=== PATIENT | male | born 1955 | race Caucasian/White ===

== ENCOUNTER 2018-10-30 01:42 | Outpatient (CLI) | payer BC, SELFPAY ==
[2018-10-30 08:54] LABS: HCT 43.1 % (40.0-50.0); HGB 14.4 g/dL (13.5-17.5); Mean Corp. HGB Concentration 33.4 g/dL (32.0-36.0); Mean Corpuscular Hemoglobin 29.8 pg (27.0-33.0); Mean Platelet Volume 8.3 fL (8.0-11.0); Platelet Count 349 x1000/uL (130-400); RBC 4.84 m/cumm (4.50-6.00); RBC Distribution Width 12.4 % (11.8-14.1); White Blood Cell Count 6.03 k/cumm (4.4-10.8)
[2018-10-30 09:57] LABS: ALT 29 U/L (12-78); AST 29 U/L (15-37); Albumin 3.7 g/dL (3.4-5.0); Alkaline Phosphatase 108 U/L (46-116); Anion Gap 8.9 mmol/L (3-11); BUN 29 mg/dL (7-18); Bilirubin, Total 0.7 mg/dL (0.2-1.0); CO2 28.1 mmol/L (21.0-32.0); CREATININE 1.14 mg/dL (0.70-1.30); Calcium 9.7 mg/dL (8.5-10.1); Chloride 101 mmol/L (98-107); Cholesterol 209 mg/dL (50-200); Glucose 89 mg/dL (70-100); HDL Cholesterol 50 mg/dL (40-60); LDL CHOLESTEROL 142 mg/dL (<100); Potassium 5.2 mmol/L (3.5-5.1); Sodium 138 mmol/L (136-145); Total Protein 7.2 g/dL (6.4-8.2); Triglyceride 69 mg/dL (30-150)
== END 2018-10-30 02:02 ==
PROVIDERS: PCP Family Medicine; Visit Provider Family Medicine
DX: Z00.00 Encounter for general adult medical examination without abnormal findings (principal)
CPT/HCPCS: 36415; 80053; 80061; 83721; 85027

== ENCOUNTER 2020-02-04 04:32 | Outpatient (CLI) | payer MEDICARE, BC, SELFPAY ==
[2020-02-04 07:31] LABS: HCT 43.8 % (40.0-50.0); HGB 14.6 g/dL (13.5-17.5); Mean Corp. HGB Concentration 33.3 g/dL (32.0-36.0); Mean Corpuscular Hemoglobin 29.9 pg (27.0-33.0); Mean Corpuscular Volume 89.6 fL (80-95); Mean Platelet Volume 8.4 fL (8.0-11.0); Platelet Count 308 x1000/uL (130-400); RBC 4.89 m/cumm (4.50-6.00); RBC Distribution Width 12.6 % (11.8-14.1); White Blood Cell Count 5.28 k/cumm (4.4-10.8)
[2020-02-04 08:17] LABS: ALT 44 U/L (16-63); AST 34 U/L (15-37); Albumin 4.1 g/dL (3.4-5.0); Alkaline Phosphatase 84 U/L (46-116); Anion Gap 7.1 mmol/L (3-11); BUN 26 mg/dL (7-18); Bilirubin, Total 0.6 mg/dL (0.2-1.0); CO2 27.9 mmol/L (21.0-32.0); Calcium 9.8 mg/dL (8.5-10.1); Calculated LDL 143 mg/dL (<100); Chloride 103 mmol/L (98-107); Cholesterol 217 mg/dL (<200); Glucose 96 mg/dL (74-106); HDL Cholesterol 60 mg/dL (40-60); Sodium 138 mmol/L (136-145); Total Protein 6.9 g/dL (6.4-8.2); Triglyceride 71 mg/dL (<150)
[2020-02-05 09:25] LABS: PSA, Screening 1.3 ng/mL (0.0-4.5)
== END 2020-02-04 04:52 ==
PROVIDERS: PCP Family Medicine; Visit Provider Family Medicine
DX: I48.0 Paroxysmal atrial fibrillation (principal); E78.89 Other lipoprotein metabolism disorders; Z12.5 Encounter for screening for malignant neoplasm of prostate; N40.0 Benign prostatic hyperplasia without lower urinary tract symptoms
CPT/HCPCS: 36415; 80053; 80061; 84153; 85027

== ENCOUNTER 2021-02-03 03:49 | Outpatient (CLI) | payer MEDICARE, BC, SELFPAY ==
[2021-02-03 08:21] LABS: ALT 30 U/L (16-63); AST 27 U/L (15-37); Albumin 3.8 g/dL (3.4-5.0); Alkaline Phosphatase 88 U/L (46-116); Anion Gap 6.5 mmol/L (3-11); BUN 24 mg/dL (7-18); Bilirubin, Total 0.6 mg/dL (0.2-1.0); CO2 27.5 mmol/L (21.0-32.0); CREATININE 1.1 mg/dL (0.70-1.30); Calcium 9.4 mg/dL (8.5-10.1); Chloride 104 mmol/L (98-107); Glucose 92 mg/dL (74-106); Potassium 5.3 mmol/L (3.5-5.1); Sodium 138 mmol/L (136-145); Total Protein 6.7 g/dL (6.4-8.2)
[2021-02-03 20:23] LABS: Calculated LDL 124 mg/dL (<100); Cholesterol 187 mg/dL (<200); HDL Cholesterol 50 mg/dL (40-60); Triglyceride 68 mg/dL (<150)
[2021-02-03 22:08] LABS: PSA, Screening 1.5 ng/mL (0.0-4.5)
== END 2021-02-03 03:50 | disposition home or self-care (01) ==
LOC: LBO 03:49
PROVIDERS: PCP Nurse Practitioner Family; Visit Provider Nurse Practitioner Family
DX: I10 Essential (primary) hypertension (principal); N40.0 Benign prostatic hyperplasia without lower urinary tract symptoms; Z12.5 Encounter for screening for malignant neoplasm of prostate
CPT/HCPCS: 36415; 80053; 80061; 84153

== ENCOUNTER 2022-02-07 01:30 | Outpatient (CLI) | payer MEDICARE, BC, SELFPAY ==
--- OUTSIDE RECORDS SUMMARY | 2022-02-07 01:32 | XMS_ITS | Encounter Summary ---
:1955 Author Organization [facility] Address [address] [place] [address] Care Team Providers Name Role Phone Uriah Davis MD Primary Care Provider Reason for Visit Reason Comments Other battery depletion Encounter Details Date Type Department Care Team Description 02/24/2020 External Contact [facility] - Shelton Smith Presence of cardiac device (Primary Dx); [facility] [place] Cardiology MD Lb PAF (paroxysmal atrial fibrillation) ( C-CMS) Clinic [address] [facility] [address] [facility] [address] [place] [address] [place] [phone] Social History Tobacco Use Types Packs/Day Years Used Date Never Smoker Smokeless Tobacco: Never Used Alcohol Use Standard Drinks/Week Comments Yes 0 (1 standard drink = 0.6 oz pure alcoho l) rare Alcohol Habits Answer Date Recorded How often do you have a drink containing alcohol? Not asked How many drinks containing alcohol do you have on a typical Not asked day when you are drinking? How often do you have six or more drinks on one occasion? No t asked Comment: rare 11/10/2010 Sex Assigned at Date Recorded Not on file documented as of this encounter Functional Status Functional Status Response Date of Assessment Because of a physical, mental, or emotional condition, Yes 08/31/2016 does this person have difficulty doing errands alone such as visiting a doctor's office or shopping? Cognitive Status Response Date of Assessment Because of a physical, mental, or emotional condition, Yes 08/31/2016 does this person have serious difficulty concentrating, remembering, or making decisions? documented as of this encounter Progress Notes Shelton Smith MD - 02/24/2020 4491 EDT Operative Note ?? Patient: Braulio ROONEY ?? Date of : 1955 ?? Date of Service: 02/24/2020 ?? Preoperative diagnosis: Implanted property assessment monitor battery depletion ?? Postoperative diagnosis: Implanted property assessment monitor battery depletion ?? Procedure: Implanted property assessment monitor (Reveal Linq) explant ?? Cco: Shelton Smith MD ?? Anesthesia: Local ?? Preprocedure antibiotics: None ?? Fluoroscopy: None ?? Estimated blood loss less than 10 mL ?? Specimens: none Drains: none Complications: none ?? Indication for procedure: Device battery depletion ?? Procedure in detail: The patient was brought to the procedure room in a fasting state and informed consent was obtained. A timeout was performed and the patient was prepped and draped in the usual sterile manner. The left parasternal region was locally anesthetized and an incision was made through theprevious incision scar. A very dense scar capsule was found. Using blunt and sharp dissection, the device (Medtronic Reveal Linq) was accessed without problems and explanted. Manual pressure was held for 5 minutes for hemostasis. The incision was then closed with a single horizontal suture using 4-0 Biosyn suture material. The skin was then closed with Dermabond skin glue. ?? Summary: Successful explantation of a Reveal Linq implanted property assessment monitor. ?? CPT 89309. ?? Shelton Smith MD documented in this encounter Plan of Treatment Upcoming Encounters Date Type Specialty Care Team Description 09/13/2022 Office Visit Cardiology Shelton Smith MD [address] [place] [address] [address] [place] [address] (Wo rk) documented as of this encounter Visit Diagnoses Diagnosis Presence of cardiac device - Primary PAF (paroxysmal atrial fibrillation) (HC C-CMS) (HCC) Atrial fibrillation documented in this encounter Care Teams Solar Sales Representative Relationship Specialty Start Date End Date Uriah Davis MD PCP - General 01/17/19 07/12/21 documented as of this encounter
--- OUTSIDE RECORDS SUMMARY | 2022-02-07 01:32 | XMS_ITS | Encounter Summary ---
:1955 Author Organization [facility] Address [address] [place] [address] Care Team Providers Name Role Phone Uriah Davis MD Primary Care Provider Reason for Visit Reason Comments Atrial Fibrillation Follow-up Encounter Details Date Type Department Care Team Description 11/26/2019 Telemedicine [facility] - Shelton Smith PAF (paroxysmal atrial fibrillation) ([facility]) (Primary Dx); [facility] [place] MD Lb Essential (primary) hypertension; Clinic [address] Status post catheter ablation of atrial fibrillation; [address] [facility] [address] Ectopic atrial tachycardia ([facility]) [place] [address] [place] [phone] Social History Tobacco Use Types Packs/Day [...] encounter Progress Notes Shelton Smith MD - 11/26/2019 0915 EDT [facility] [place] Visit Verbal consent: The concept of ???Telemedicine?? has been described to the patient. Patient has been informed of the anticipated benefits and possible risks. Patient understands the information provided regarding telemedicine, has had the opportunity to ask questions about this information, and all questions have been answered to patient???s satisfaction. Patient consents for the use of telemedicine in his/her medical care and authorizes the transmission of any relevant medical information to providers and their staff involved in patient???s medical or mental health care. Verbal consent obtained by myself or auxiliary staff: yes. Subjective: Chief Complaint(s): Atrial Fibrillation and Follow-up HPI: 64-year-old man with history of paroxysmal atrial fibrillation since 2006, status post 4 AF ablationprocedures [id number], intolerance to multiple antiarrhythmic medications, 2 syncopal episodes attributed to vasovagal spells, hypercoagulable state of unclear etiology and aortic root dilatation. S/p Reveal LINQ phototypesetting equipment monitor implant. Since having his device implanted in 08/2016 he has had 1 prolonged (>12h) episode of AF in 2019, noted as dizziness and palpitations that he attributed to dehydration. He declined adding an anticoagulant to his medication regimen at that time, but started on Xarelto in 09/2019. Continues with medicinal marijuana to treat his headaches. He is doing well and back at physical activities including marathon training, tennis and mountain biking. Tolerating physical activity well. He occasionally feels skipped beat, like a hesitation in his heart beat. A very rare occasion, he feels that his basline HR is 20 bpm higher than usual, making him feel up against a wall all day. He reports good and stable exercise capacity. He goes running at least 5-6 miles every day, uses his bike timekeeping supervisor. . Denies CP, SOB, syncope, orthopnea, PND, edema, fevers, chills, digestive troubles, bleeding, arthralgia, myalgia. He has been intolerant of a variety of antiarrhythmic medications including flecainide, amiodarone, dofetilide, diltiazem and atenolol. Data review: Card[employer]Net event monitor 06/17/2015-07/29/2015: Preliminary and incomplete results: Baseline sinus rhythm, one episode with lightheaded, heart racing, the the, other symptom with sinus tachycardia at 133/min. 12 episodes of lightheaded/dizzy/SOB with sinus rhythm, 72 -105/min +/- single PVC or PAC, on e couplet. 2 asymptomatic episodes of pSVT 9 & 18 beats, 186 & 164/min. CT angiogram chest 05/2015, [facility]: Dilated aortic root at the level of the sinuses of Valsalva, measuring 4.9 cm on sagittal reconstruction images. The ascending, transverse and descending thoracic aortahave normal appearance. Small bilateral lung nodules, scarring medial segment middle lobe. Small defect posterior left diaphragmatic with fatty herniation into the left lower chest. Tobacco: Tobacco Assessment (STRUCTURED) Patient Tobacco Use: Never used tobacco .. Current Outpatient Medications Medication Sig Dispense Refill ??? ascorbic acid (VITAMIN C) 500 mg tablet Take 500 mg by mouth daily. ??? DILTiazem (CARDIZEM) 30 mg tablet Take 30 mg by mouth 2 times daily. ??? fish oil-omega-3 fatty acids 340-1,000 mg capsule Take 1 Cap by mouth daily. ??? lisinopriL (PRINIVIL) 10 mg tablet Take 1 Tab by mouth 3 times daily. 2 tabs in the morning, 1 tab at night. ??? Multivitamins with Minerals Tab Take 1 Tab by mouth daily. ??? rivaroxaban (XARELTO) 20 mg tablet tablet Take 1 Tab by mouth daily with dinner. 30 Tab 11 No current facility-administered medications for this visit. Past Medical History Paroxysmal atrial fibrillation since 2006 4 AF ablation procedures with pulmonary vein isolation 08/2008, 10/2010, 05/2011, 10/2012, Dr. Hendricks,[facility] Initiation of antiarrhythmic therapy with dofetilide 08/2010, medication discontinued due to side effects Negative tilt table test at [facility] 06/2013, Reproduction of lightheadedness with mental fogginess, weakness and near syncope near the end of the tilt study, on Isuprel 5 mcg/minute IV, with a blood pressure juan manuel of 107/66 at that time and a heart rate of 112. 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 Alcohol: rare. Drug use: none. Exercise: daily, cardio training. Living situation: lives with spouse/partner. Marital/Partner Status: . Domestic violence screen Do youfeel safe at home? Yes, Date: 08/30/2016. Learning Barriers Assessed On: 07/28/2015, Does the patient have barriers to learning? No. 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 Allergies flecainide: hallucinations amiodarone Tikosyn atenolol fresh fruit: anaphylaxis: Allergy I have reviewed current problem list and current medications. ROS: A 10-system ROS was performed, pertinent items as mentioned in HPI, otherwise negative. Objective: Examination: Home Vitals: There were no vitals taken for this visit. Pertinent exam findings: speaking in full sentences, no audible wheeze and mood and affect appropriate Labs: Lab Results Component Value Date CHOL 177 08/27/2010 CHOL 197 03/23/2009 HDL 58 08/27/2010 HDL 54 03/23/2009 LDLBASE 102 08/27/2010 LDLBASE 103 03/23/2009 TRIG 83 08/27/2010 TRIG 201 (H) 03/23/2009 CHOLHDL 3.1 08/27/2010 CHOLHDL 3.6 03/23/2009 BUN Date Value Ref Range Status 10/08/2012 15 10 - 26 mg/dl Final Creatinine Date Value Ref Range Status 07/08/2019 1.07 0.66 - 1.25 mg/dL Final 10/08/2012 0.81 0.66 - 1.25 mg/dl Final Potassium Date Value Ref Range Status 10/08/2012 4.8 3.5 - 5.0 mEq/L Final Magnesium Date Value Ref Range Status 08/26/2010 2.3 1.7 - 2.8 mg/dl Final Lab Results Component Value Date HGBA1C 5.4 08/26/2010 Assessment & Plan: 1. PAF (paroxysmal atrial fibrillation) (HCC-CMS) 2. Essential (primary) hypertension 3. Status post catheter ablation of atrial fibrillation 4. Ectopic atrial tachycardia (HCC-CMS) 64-year-old man with history of paroxysmal atrial fibrillation since 2006, status post 4 AF ablationprocedures [id number], intolerance to multiple antiarrhythmic medications, 2 syncopal episodes of unclear etiology and aortic root dilatation. Had dizzy spells, palpitations and shortness of In 2017, int erfering with his daily work. Referral to an autonomous nervous communications systems engineer did not yield new diagnoses. Had Reveal LINQ phototypesetting equipment monitor implant. Currnetly doing very well with good suppression of arrhyhmia on low-dose diltiazem. Excellent exercise capacity. Answered Multiple questions regarding exercise workout and heart rhythm. Continue current meds.Total [id number] time: 35 minutes, >50% spent counseling on above issues. Treatment 1. Essential hypertension Continue Cardizem tablet, 30 mg, 1 tab(s), orally, two times a day Continue Lisinopril 30mg/d 2. Paroxysmal atrial fibrillation Continue Xarelto 20mg/d Patient initiated phone contact with the office: yes. Patient is an established patient (parent, guardian) yes. E/M provided within previous 7 days for same medical assessment: no Anticipate E/M service within 24hrs or next available urgent appointment no. This visit was conducted by telephone. I spent a total of 35 minutes in discussion with the patient as described in the progress note. Shelton Smith MD arty Crum - 11/26/2019 0915 EDT appts sched with pt 03/03/20 with Maryellen and 06/09/[address] Smith documented in this encounter Plan of Treatment Upcoming Encounters Date Type Specialty Care Team Description 09/13/2022 Office Visit Cardiology Shelton Smith MD [address] [place] [address] [address] [place] [address] (Wo rk) documented as of this encounter Visit Diagnoses Diagnosis PAF (paroxysmal atrial fibrillation) (HC C-CMS) ([facility]) - Primary Atrial fibrillation Essential (primary) hypertension Unspecified essential hypertension Status post catheter ablation of atrial fibrillation Ectopic atrial tachycardia ([facility]) (HC C) Other specified cardiac dysrhythmias documented in this encounter Discontinued Medications Medication Sig Discontinue Reason Start Date End Date lisinopril (PRINIVIL, Take 5 mg by mouth Order modification 11/26/2019 ZESTRIL) 5 mg tablet 3 times daily. 2 tabs in the morning, 1 tab at night. documented as of this encounter Historical Medications This list may reflect changes made after this encounter. Medication Sig Dispensed Refills Start Date End Date lisinopriL (PRINIVIL) 10 Take 1 Tab by mouth 0 01/29/2020 mg tablet 3 times daily. 2 tabs in the morning, 1 tab at night. added in this encounter Care Teams Acquisition Analyst Relationship Specialty Start Date End Date Uriah Davis MD PCP - General 01/17/19 07/12/21 documented as of this encounter
--- OUTSIDE RECORDS SUMMARY | 2022-02-07 01:32 | XMS_ITS | Encounter Summary ---
:1955 Author Organization [facility] Address [address] [place] [address] Care Team Providers Name Role Phone Uriah Davis MD Primary Care Provider Reason for Visit Reason Onset Date Comments Appointment Related 03/03/2020 Encounter Details Date Type Department Care Team Description 03/03/2020 Telephone [facility] - [facility] Keaton De La Torre RN Appointment Related Cardiology Clinic [address] [place] [address] Social History Tobacco Use Types Packs/Day Years [...] making decisions? documented as of this encounter Miscellaneous Notes Telephone Encounter - Sophia Quintanilla RN - 03/05/2020 1159 EDT Labs given to Maryellen for review. Per Maryellen, no changes in medications needed at this time. Advised to keep F/U appt with . Instructed to call the office with further questions or concerns. Telephone Encounter - Maryellen Pantoja APRN - 03/04/2020 1352 EDT I think he should keep his initial visit with Dr Smith in May and they can decide on a futurefollow up plan at that time, mostly because Dr Smith's availability is lacking in the coming months. I checked scanned documents and did not see any bloodwork results. I am happy to review, or he could discuss with the ordering provider. Thanks. elephone Encounter - Keaton De La Torre RN - 03/03/2020 0919 EDT Pt was in office 03/02/20 for a wound check s/p reveal explant. He and his had a few questions for Maryellen Pantoja: 1. Pt has a scheduled appt with in May. Is that still necessary or could it be cancelled or postponed? 2. Pt had recent labs done at [facility] and they were hoping to have Maryellen review those. They dropped them off at front services agent to be scanned into pts chart. documented in this encounter Plan of Treatment Upcoming Encounters Date Type Specialty Care Team Description 09/13/2022 Office Visit Cardiology Shelton Smith MD [address] [place] [address] [address] [place], [place] [phone] (Wo rk) documented as of this encounter Visit Diagnoses Not on filedocumented in this encounter Care Teams Research Development Manager Relationship Specialty Start Date End Date Uriah Davis MD PCP - General 01/17/19 07/12/21 documented as of this encounter
--- OUTSIDE RECORDS SUMMARY | 2022-02-07 01:32 | XMS_ITS | Encounter Summary ---
:1955 Author Organization [facility] Address [address] [place] [address] Care Team Providers Name Role Phone Uriah Davis MD Primary Care Provider Reason for Referral Radiology Services (Routine/Next Available) - Authorization Not Required Specialty Diagnoses / Procedures Referred By Contact Refer red To Contact Diagnoses Ascending aorta dilatation ([facility]) (FORMERLY [facility]) Marilee Madrid, [facility] Procedures CT ANGIO CHEST [address] [place] [phone] Referral ID Status Reason Start Expiration Visits Visits Date Date Requested Authorized [id number] Authorization Not 1 Required 1 Reason for Visit Reason Onset Date Comments Patient Reminder 05/14/2021 Encounter Details Date Type Department Care Team Description 05/14/2021 Telephone [facility] Willi Mortensen MD Patient Reminder Cardiothoracic Surgery - [address] [place] [address] [place], [place] [phone] (Wo rk) Social History Tobacco Use Types Packs/Day Years [...] this encounter Miscellaneous Notes Telephone Encounter - Olamide Saenz - 05/18/2021 1455 EDT Patient scheduled for CTA chest on 07/13/2021 at 9:00 am, check-in at 8:45 am. Patient will then seeDrDavid South at 10:00 am on the same day. Appointment confirmation letter, including lab order, mailed to patient's home address on file. elephone Encounter - Olamide Saenz - 05/18/2021 0914 EDT Order now in Epic. Coordination note placed in Radiology WQ. Awaiting appointment. Telephone Encounter - Olamide Saenz - 05/14/2021 1116 EDT Previous patient of Dr. Bliss. Patient is on reminder list for the month of July, for CTA chest and Office Visit with CT Surgeon. Awaiting order. Patient's spouse requesting that CTA chest and OV be done in the month of June because they already met their deductible. documented in this encounter Plan of Treatment Upcoming Encounters Date Type Specialty Care Team Description 09/13/2022 Office Visit Cardiology Shelton Smith MD [address] [place] [address] [address] [place] [address] (Wo rk) documented as of this encounter Procedures Procedure Name Priority Date/Time Associated Diagnosis Comme nts CT ANGIO CHEST Routine 07/13/2021 9:00 EST Ascending aorta Res ults for this dilatation ([facility]) procedu re are in the ([facility]) results section . CREATININE Routine 07/12/2021 9:25 EST Ascending aorta Resul ts for this dilatation (HCC-CMS) procedu re are in the ([facility]) results section . documented in this encounter Results CT ANGIO CHEST (07/13/2021 9:00 EST) Anatomical Region Laterality Modality Chest Computed Tomography Specimen Impressions [facility] - 07/13/2021 9:57 EST 1. ??Stable ascending aortic aneurysm 4.8 cm at the sinuses of Valsalva: 4.4 cm in the mid ascending aorta. 2. ??Mild atherosclerotic narrowing of t he proximal left subclavian artery. 3. ??Minimal middle lobe scarring. 4. ??Stable small low-attenuation lesion s both lobes of thyroid. 5. ??Small left renal cyst. Narrative [facility] - 07/13/2021 9:[address] ANGIO CHEST ??07/13/2021 9:00 AM Clinical History/Comments: known ascending aortic aneurysm, interva l assessment for change Technique: A contrast-enhanced retrospectively ECG- gated CT acquisition was performed on a multidetector row scanner beginning at the apices inferiorly to the lung bases. ??Intravenous contrast was administered as 80-100 cc of 350-370 mg% nonionic contr ast at an injection rate of 4 cc/second, with scan acquisition timed by the use of bolus-tracking software targeted to the proximal descending aorta. ??Scans were reconstructed in a soft tissue algorith m at 75% ??of the cardiac cycle with 2.5-3.0 mm thick scans reconstructed at overlapping 2.0 mm intervals and retrospectively reconstructed with 0.9 mm thickness at 0.45 mm intervals, all in a soft tiss ue algorithm for three-dimensional reconstruction and interpretation on a dedicated PACS workstation. ??Coronal, sagittal and 3-D reformations of the aorta were performed. Exam description: ??CTA of the chest Comparison: Chest CT July 23, 2019.. Findings: Opacification of the aorta is good. No d issection or other aortic abnormality identified. The ascending aortic dilatation stable from the studies of June 2019. Maximum dimension: Aortic root at sinuses of Valsalva: 4.8 cm Sinotubular junction: ??4.4 cm Ascending aorta: ??4.1 cm Aortic Arch: ??2.8 cm Descending thoracic aorta: ??2.6 cm Lower neck: Stable small low-density les ions both lobes of thyroid. Chest wall soft tissues: No abnormalitie s. Mediastinum and rubia: No enlarged medias tinal or hilar lymph nodes. ??The esophagus appears normal. Heart and mediastinal vasculature: ??The re is mild atherosclerotic narrowing of the proximal left subclavian artery with both hard and soft plaque. Large airways: ??No abnormalities. Lungs: ??There is minimal scarring withi n the medial segment of the middle lobe. Pleura: No abnormalities. Upper abdomen (limited to upper abdomen, not optimized for abdominal imaging): There is a small cyst in the midpole of the left kidney posteriorly. Bones: ??No significant abnormalities. Procedure Note Chito Guevara MD - 07/13/2021 CT ANGIO CHEST 07/13/2021 9:00 AM Clinical History/Comments: known ascending aortic aneurysm, interva l assessment for change Technique: A contrast-enhanced retrospectively ECG- gated CT acquisition was performed on a multidetector row scanner beginning at the apices inferiorly to the lung bases. Intravenous contrast was administered as 80-100 cc of 350-370 mg% nonionic contrast at an injection ra te of 4 cc/second, with scan acquisition timed by the use of bolus-tracking software targeted to the proximal descending aorta. Scans were reconstructed in a soft tissue algorithm at 75% of the cardiac cycle wi th 2.5-3.0 mm thick scans reconstructed at overlapping 2.0 mm intervals and retrospectively reconstructed with 0.9 mm thickness at 0.45 mm intervals, all in a soft tissue algorithm for three-dimensional r econstruction and interpretation on a dedicated PACS workstation. Coronal, sagittal and 3-D reformations of the aorta were performed. Exam description: CTA of the chest Comparison: Chest CT July 23, 2019.. Findings: Opacification of the aorta is good. No d issection or other aortic abnormality identified. The ascending aortic dilatation stable from the studies of June 2019. Maximum dimension: Aortic root at sinuses of Valsalva: 4.8 cm Sinotubular junction: 4.4 cm Ascending aorta: 4.1 cm Aortic Arch: 2.8 cm Descending thoracic aorta: 2.6 cm Lower neck: Stable small low-density les ions both lobes of thyroid. Chest wall soft tissues: No abnormalitie s. Mediastinum and rubia: No enlarged medias tinal or hilar lymph nodes. The esophagus appears normal. Heart and mediastinal vasculature: There is mild atherosclerotic narrowing of the proximal left subclavian artery with both hard and soft plaque. Large airways: No abnormalities. Lungs: There is minimal scarring within the medial segment of the middle lobe. Pleura: No abnormalities. Upper abdomen (limited to upper abdomen, not optimized for abdominal imaging): There is a small cyst in the midpole of the left kidney posteriorly. Bones: No significant abnormalities. IMPRESSION 1. Stable ascending aortic aneurysm 4.8 cm at the sinuses of Valsalva: 4.4 cm in the mid ascending aorta. 2. Mild atherosclerotic narrowing of the proximal left subclavian artery. 3. Minimal middle lobe scarring. 4. Stable small low-attenuation lesions both lobes of thyroid. 5. Small left renal cyst. Performing Organization Address City/State/ZIP Code Phon e Number [facility] CREATININE (07/12/2021 9:25 EST) Pathologist Sig nature Creatinine 1.04 0.66 - 1.25 mg/dL [facility] eGFR 74 >60 mL/min/1.73m2 [facility] Specimen Blood - Venous blood (substance) Performing Organization Address City/State/ZIP Code Phon e Number [facility] [address] [place] [address] documented in this encounter Visit Diagnoses Diagnosis Ascending aorta dilatation (HCC-CMS) (HC C) - Primary Thoracic aortic ectasia documented in this encounter Care Teams Centerless Grinding Machine Adjuster Relationship Specialty Start Date End Date Uriah Davis MD PCP - General 01/17/19 07/12/21 documented as of this encounter
--- OUTSIDE RECORDS SUMMARY | 2022-02-07 01:32 | XMS_ITS | Clinical Summary ---
:1955 Author Organization [facility] Address [address] [place] [address] Care Team Providers Name Role Phone Shelton Smith MD Unavailable [phone] Tho Genao Primary Care Provider Allergies Active Allergy Reactions Severity Noted Date Comments Amiodarone Other (See Comments) 10/13/2009 Ineffec tive for A-Fib and hallucinati ons Atenolol Other (See Comments) 10/13/2009 Halluci nations and restlessness Dofetilide 07/01/2013 Other reaction( s): Unknown, Unknow n Other reaction( s): Unknown, Unknow n Flecainide Other (See Comments) 10/13/2009 Halluci nations Food Extracts 01/03/2022 Other reaction (s): AOF Cephalexin Nausea Only 10/13/2009 Other - See Comments Swelling of tongue High 10/13/2009 F resh fruit- - swelling tongue adhesive- - michele h Medications Medication Sig Dispensed Refills Start Date End Date Status Multivitamins with Take 1 Tab by 0 Active Minerals Tab mouth daily. ascorbic acid (VITAMIN Take 500 mg by 0 Active C) 500 mg tablet mouth daily. fish oil-omega-3 fatty Take 1 Cap by 0 Active acids 340-1,000 mg mouth daily. capsule UNABLE TO FIND Medical me 0 Acti ve rivaroxaban (XARELTO) Take 1 Tablet by 90 Tablet 3 01/03/2022 Active 20 mg tablet tablet mouth daily with dinner. lisinopriL (PRINIVIL) Take 2 Tablets 270 Tablet 3 01/03/2022 Active 10 mg tablet by mouth every morning AND 1 Tablet every evening. dilTIAZem (CARDIZEM) 30 Take 1 Tablet by 180 Tablet 3 01/04/20 22 Active mg tablet mouth 2 times daily. Active Problems Patient Care Coordination Note Formatting of this note might be differe nt from the original. [facility] JO[facility] - P erm[place] to speak to Angela Garcia (), Deya Mcleod (daughter), and Britany Singh (daughter) Problem Noted Date Ectopic atrial tachycardia (HCC-CMS) 11/26/2019 Basal cell carcinoma of skin 09/20/2019 Overview: Overview: Deactivated Dx replaced via utility Encounter for loop recorder check 09/20/2019 Status post catheter ablation of atrial fibrillation 0 09/20/2019 Thoracic aortic aneurysm without rupture ([facility]) Cerebral cavernoma 10/11/2016 Essential (primary) hypertension 09/23/2016 PAF (paroxysmal atrial fibrillation) ([facility]) 013 Resolved Problems Problem Noted Date Resolved Date A-fib ([facility]) 05/24/2011 09/15/2011 A-fib ([facility]) 08/06/2010 02/09/2011 Encounters Date Type Specialty Care Team Description 01/03/2022 Office Visit Cardiology Shelton Smith, PAF (paroxysmal atrial fibrillation) ([facility]) ([facility]) (Primary Dx); Ectopic atrial tachycardia ([facility]) ([facility]); Status post cat heter ablation of atrial fibrillation; Essential (prim elena) hypertension; Thoracic aortic aneurysm without rupture ([facility]) ([facility]) from Last 3 Months Surgical History Surgery Date Site/Laterality Comments TONSILLECTOMY childhood NASAL SEPTUM SURGERY 2006 ABLATION OF DYSRHYTHMIC FOCUS Medical History Medical History Date Comments AF (atrial fibrillation) (HCC-CMS) ([facility]) had ablation 2 yrs ago Cancer (HCC-CMS) ([facility]) skin cancer on fa ce and back A-fib (HCC-CMS) ([facility]) 10/09/2012 Family History Medical History Relation Name Comments Heart Disease Brother Heart Disease Father Cancer Maternal Grandfather High Cholesterol Mother Heart Disease Paternal Grandmother Relation Name Status Comments Brother Father Maternal Grandfather Mother Paternal Grandmother Social History Tobacco Use Types Packs/Day Years [...] Assigned at Date Recorded Not on file Last Filed Vital Signs Vital Sign Reading Time Taken Comments Blood Pressure 128/74 01/03/2022 0834 EDT Pulse 68 01/03/2022 0834 EDT Temperature 36.3 ??C (97.3 ??F) 07/13/2021 0956 EST Respiratory Rate 18 07/13/2021 0956 EST Oxygen Saturation 100% 01/03/2022 0834 EDT Inhaled Oxygen Concentration - - Weight 68.3 kg (150 lb 8 oz) 01/03/2022 0834 EDT Height 177.8 cm (5' 10) 01/03/2022 0834 EDT Body Mass Index 21.59 01/03/2022 0834 EDT Plan of Treatment Upcoming Encounters Date Type Specialty Care Team Description 09/13/2022 Office Visit Cardiology Shelton Smith MD [address] [place] [address] [address] [place], [place] [phone] (Wo rk) Health Maintenance Due Date Last Done Comments Hepatitis C Screen 1955 COVID-19 Vaccine (#1) 1958 Advance Directive Review 04/06/2014 Fall Risk Screening 2018 Insurance Payer Benefit Plan / Subscriber ID Effective Dates Phone Addre ss Type Group MEDICARE MEDICARE A/B [id number] 2020-Presen [id number] [place] [address] [place] [id number] 2020-Presen [address] [place] [address] [place] [id number] Braulio Garcia Personal/Family Self 1955 [address] (Home) [place] [address] GarciaBraulio antunez Personal/Family Self 1955 [address] (Home) [place] [address] Braulio Garcia Personal/Family Self 1955 [address] (Home) [place] [address] Advance Directives For more information, please contact: [phone] Documents on File Type Date Recorded Patient Product Development Ecologist Explanati on Advance Directive 04/06/2009 20:42 Advance Directive 02/25/2009 20:13 Latest Code Status on File Code Status Date Activated Date Inactivated Comments Full Code 10/09/2012 12:02 10/10/2012 13:15 Full Code 06/14/2011 15:05 06/15/2011 13:01 Full Code 11/10/2010 6:42 11/11/2010 14:06 Full Code 11/09/2010 10:07 11/09/2010 16:11 Full Code 08/26/2010 17:53 08/29/2010 14:38 Care Teams Data Architect Manager Relationship Specialty Start Date End Date Tho Genao [facility] 07/13/21 [address] [phone] Shelton Smith, Cardiovascular Disease [address] [place] [address] [place] [phone]
--- OUTSIDE RECORDS SUMMARY | 2022-02-07 01:32 | XMS_ITS | Encounter Summary ---
:1955 Author Organization [facility] Address [address] [place] [address] Care Team Providers Name Role Phone Uriah Davis MD Primary Care Provider Reason for Visit (Routine) - Order Cancelled Specialty Diagnoses / Procedures Referred By Contact Refer red To Contact Diagnoses Encounter for loop recorder check Maryellen Pantoja NP Procedures CARDIAC IMPLANT CHECK - IN CLINIC [address] [facility] [address] [place] [address] Referral ID Status Reason Start Date Expiration Date Visits V isits Requested Authorized [id number] Order 09/20/2019 12 12 Cancelled Encounter Details Date Type Department Care Team Description 06/26/2020 Ancillary Procedure [facility] - Encounter for loop [facility] Cardiology Clin ic recorder check [address] [place] [address] Social History Tobacco Use Types [...] making decisions? documented as of this encounter Plan of Treatment Upcoming Encounters Date Type Specialty Care Team Description 09/13/2022 Office Visit Cardiology Shelton Smith MD [address] [place] [phone] (Wo rk) documented as of this encounter Visit Diagnoses Diagnosis Encounter for loop recorder check Fitting and adjustment of other cardiac device documented in this encounter Orders Implantable Cardiac Device Count Last Ordered Date Fir st Ordered Date CARDIAC IMPLANT CHECK - IN CLINIC 1 06/26/2020 documented in this encounter Care Teams Bench Technician Relationship Specialty Start Date End Date Uriah Davis MD PCP - General 01/17/19 07/12/21 documented as of this encounter
--- OUTSIDE RECORDS SUMMARY | 2022-02-07 01:32 | XMS_ITS | Encounter Summary ---
:1955 Author Organization [facility] Address [address] [place] [address] Care Team Providers Name Role Phone Uriah Davis MD Primary Care Provider Encounter Details Date Type Department Care Team Description 05/17/2021 Orders Only [facility] Benja Siddiqi MD Radiology - Main Cam pus [address] [address] [place] [phone] (Wo rk) Social History Tobacco Use Types [...] Office Visit Cardiology Shelton Smith MD [address] [place] [address] [address] [place] [address] (Wo rk) documented as of this encounter Visit Diagnoses Not on filedocumented in this encounter Care Teams Process Expert Relationship Specialty Start Date End Date Uriah Davis MD PCP - General 01/17/19 07/12/21 documented as of this encounter
--- OUTSIDE RECORDS SUMMARY | 2022-02-07 01:32 | XMS_ITS | Encounter Summary ---
:1955 Author Organization [facility] Address [address] [place] [address] Care Team Providers Name Role Phone Uirah Davis MD Primary Care Provider Shelton Smith MD Unavailable [phone] Reason for Visit Reason Onset Date Comments Patient Reminder 07/12/2021 Encounter Details Date Type Department Care Team Description 07/12/2021 Telephone [facility] Nasima South MD Patient Reminder Cardiothoracic Surgery - [address] [place] [address], [address] [place], [place] [address] [place] [address] [phone] (Wo rk) Social History Tobacco Use [...] this encounter Miscellaneous Notes Telephone Encounter - Brooke Mckenzie MA - 07/12/2021 8637 EST Spoke to patients she confirmed he will be coming to appts, visitor policy as well was gone over. documented in this encounter Plan of Treatment Upcoming Encounters Date Type Specialty Care Team Description 09/13/2022 Office Visit Cardiology Shelton Smith MD [address] [place], [place] [address] [address] [place] [address] (Wo rk) documented as of this encounter Visit Diagnoses Not on filedocumented in this encounter Care Teams Science Consultant Relationship Specialty Start Date End Date Uriah Davis MD PCP - General 01/17/19 07/12/21 Shelton Smith MD Cardiovascular Disease 07/02/[address] [place], [place] [address] [address] [place] [address] documented as of this encounter
--- OUTSIDE RECORDS SUMMARY | 2022-02-07 01:32 | XMS_ITS | Encounter Summary ---
:1955 Author Organization [facility] Address [address] [place] [address] Care Team Providers Name Role Phone Uriah Davis MD Primary Care Provider Reason for Visit Reason Onset Date Comments Medication Management 09/24/2019 Encounter Details Date Type Department Care Team Description 09/24/2019 Telephone [facility] - Maryellen Pantoja Me dication Management [facility]iology Clin ic [place] [address] [place] [address] [address] [place] [phone] (Wo rk) Social History Tobacco Use Types [...] making decisions? documented as of this encounter Ordered Prescriptions Prescription Sig Dispensed Refills Start Date End Date rivaroxaban (XARELTO) 20 Take 1 Tab by mouth 30 Tab 11 12/19/2019 mg tablet tablet daily with dinner. documented in this encounter Miscellaneous Notes Telephone Encounter - Keaton De La Torre RN - 09/24/2019 1724 EST Rx sent and ASA discontinued on medication list as requested. elephone Encounter - Maryellen Pantoja APRN - 09/24/2019 1612 EST Spoke with . Discussed risks/benefits. Also discussed that sparing use of NSAIDs is ok. DC ASA. Can we send a Rx for 20 mg of Xarelto po daily to [facility] in [place]. #30, refills 11 elephone Encounter - Keaton De La Torre RN - 09/24/2019 1511 EST Spoke with patients on the phone. She is wishing to have Maryellen Pantoja APRN call them to discuss going onto an OAC agent as they have decided to move forward with this. They are leaning towardsXarelto, primarily for the once a day dosing, but would like to discuss benefits/drawbacks and medication management that would happen when he is put on OAC with Julian. Forwarding for review. elephone Encounter - Annette Jacobo - 09/24/2019 1444 EST Braulio called, he wants to know if its ok to continue taking Aleve and Asprin if he decides to start Xarelto. documented in this encounter Plan of Treatment Upcoming Encounters Date Type Specialty Care Team Description 09/13/2022 Office Visit Cardiology Shelton Smith MD [address] [place] [address] [address] [place] [address] (Wo rk) documented as of this encounter Visit Diagnoses Not on filedocumented in this encounter Discontinued Medications Medication Sig Discontinue Reason Start Date End Date aspirin 81 mg EC tablet Take 81 mg by mouth 09/24/2019 daily. documented as of this encounter Care Teams Asphalt Machine Operator Relationship Specialty Start Date End Date Uriah Davis MD PCP - General 01/17/19 07/12/21 documented as of this encounter
--- OUTSIDE RECORDS SUMMARY | 2022-02-07 01:32 | XMS_ITS | Encounter Summary ---
:1955 Author Organization [facility] Address [address] [place] [address] Care Team Providers Name Role Phone Shelton Smith MD Unavailable [phone] Tho Genao Primary Care Provider Reason for Visit Reason Onset Date Comments Patient Reminder 07/13/2021 Encounter Details Date Type Department Care Team Description 07/13/2021 Telephone [facility] Nasima South MD Patient Reminder Cardiothoracic Surgery - [address] [facility], [address] [place], [place] [address] [place] [address] [phone] (Wo rk) Social History Tobacco Use [...] this encounter Miscellaneous Notes Telephone Encounter - Nori Lo - 07/13/2021 1030 EST I have placed this patient on the Reminder List for a CTA Chest with IV Contrast and inperson followup with Dr South in June 2022. documented in this encounter Plan of Treatment Upcoming Encounters Date Type Specialty Care Team Description 09/13/2022 Office Visit Cardiology Shelton Smith MD [address] [place], [place] [address] [address] [place] [address] (Wo rk) documented as of this encounter Visit Diagnoses Not on filedocumented in this encounter Care Teams Inbound Call Center Representative Relationship Specialty Start Date End Date Tho Genao PCP - [facility] 07/13/[address] [place] [phone] Shelton Smith, Cardiovascular Disease 1 [address] [facility] [address] [place] [address] documented as of this encounter
--- OUTSIDE RECORDS SUMMARY | 2022-02-07 01:32 | XMS_ITS | Encounter Summary ---
:1955 Author Organization [facility] Address [address] [place] [address] Care Team Providers Name Role Phone Uriah Davis MD Primary Care Provider Reason for Visit Reason Onset Date Comments Medications Refill 01/29/2020 Encounter Details Date Type Department Care Team Description 01/29/2020 Refill [facility] [place]ia Quintanilla RN Medications Refill Cardiology Clinic [address] [facility] [address] [facility] [address] [place] [address] [place] [address] [phone] (Wo rk) Social History Tobacco Use Types [...] (PRINIVIL) 10 Take 1 Tab by mouth 270 Tab 3 12/29/2020 mg tablet 3 times daily. 2 tabs in the morning, 1 tab at night. DILTiazem (CARDIZEM) 30 mg Take 1 Tab by mouth 180 Tab 3 01/29/2020 12/29/2020 tablet 2 times daily. rivaroxaban (XARELTO) 20 Take 1 Tab by mouth 90 Tab 3 12/29/2020 mg tablet tablet daily with dinner. documented in this encounter Miscellaneous Notes Telephone Encounter - Sophia Quintanilla RN - 01/29/2020 1500 EDT Pharmacy request RF of patients Lisinopril,Xarelto and Diltiazem. He was seen recently for F/U with Maryellen Pantoja NP, on 01/09/20. Escript sent to [employer]. documented in this encounter Plan of Treatment Upcoming Encounters Date Type Specialty Care Team Description 09/13/2022 Office Visit Cardiology Shelton Smith MD [address] [place] [address] [phone] (Wo rk) documented as of this encounter Visit Diagnoses Not on filedocumented in this encounter Discontinued Medications Medication Sig Discontinue Reason Start Date End Date rivaroxaban (XARELTO) 20 Take 1 Tab by mouth Reorder 0 01/29/2020 mg tablet tablet daily with dinner. DILTiazem (CARDIZEM) 30 Take 30 mg by mouth Reorder 01/29/2020 mg tablet 2 times daily. lisinopriL (PRINIVIL) 10 Take 1 Tab by mouth Reorder 0 01/29/2020 mg tablet 3 times daily. 2 tabs in the morning, 1 tab at night. documented as of this encounter Care Teams Hand Deicer Element Winder Relationship Specialty Start Date End Date Uriah Davis MD PCP - General 01/17/19 07/12/21 documented as of this encounter
--- OUTSIDE RECORDS SUMMARY | 2022-02-07 01:32 | XMS_ITS | Encounter Summary ---
:1955 Author Organization [facility] Address [address] [place] [address] Care Team Providers Name Role Phone Shelton Smith MD Unavailable [phone] Tho Genao Primary Care Provider Reason for Visit Reason Comments Follow-up Hypertension Atrial Fibrillation Encounter Details Date Type Department Care Team Description 01/03/2022 Office Visit [facility] - Shelton Smith PAF (paroxysmal atrial fibrillation) ([facility]) ([facility]) (Primary Dx); [facility] [place] Lb Ectopic atrial tachycardia ([facility]) (HC C); Clinic [address] [facility] Status post catheter ablation of atrial fibrillation; [address] [facility] [address] [address] Essential (primary) hypertension; [place] [address] [place], [place] Thoracic aortic aneurysm wit hout rupture (HCC-CMS) ([facility]) [phone] Social History Tobacco Use Types Packs/Day [...] on file documented as of this encounter Last Filed Vital Signs Vital Sign Reading Time Taken Comments Blood Pressure 128/74 01/03/2022 0834 EDT Pulse 68 01/03/2022 0834 EDT Temperature - - Respiratory Rate - - Oxygen Saturation 100% 01/03/2022 0834 EDT Inhaled Oxygen Concentration - - Weight 68.3 kg (150 lb 8 oz) 01/03/2022 0834 EDT Height 177.8 cm (5' 10) 01/03/2022 0834 EDT Body Mass Index 21.59 01/03/2022 0834 EDT documented in this encounter Functional Status Functional Status Response [...] Sig Dispensed Refills Start Date End Date dilTIAZem (CARDIZEM) 30 mg Take 1 Tablet by 180 Tablet 3 tablet mouth 2 times daily. lisinopriL (PRINIVIL) 10 Take 2 Tablets by 270 Tablet 3 12/22 mg tablet mouth every morning AND 1 Tablet every evening. rivaroxaban (XARELTO) 20 Take 1 Tablet by 90 Tablet 3 01/03 mg tablet tablet mouth daily with dinner. documented in this encounter Progress Notes Shelton Smith MD - 01/03/2022 0900 EDT [facility] Visit Subjective: Chief Complaint(s): Follow-up, Hypertension, and Atrial Fibrillation HPI: 66-year-old man with history of paroxysmal atrial fibrillation since 2006, status post 4 AF ablationprocedures [id number], intolerance to multiple antiarrhythmic medications, 2 syncopal episodes attributed to vasovagal spells, hypercoagulable state of unclear etiology and aortic root dilatation. Reveal LINQ potline monitor implant from 08/2016 until 02/2020. This documented one prolonged (>12h) episode of AF in 2019, noted as dizziness and palpitations that he attributed to dehydration. He declined adding an anticoagulant to his medication regimen at that time, but started on Xarelto in 09/2019. Uses medicinal marijuana to treat his headaches. Regular physical activities include marathon training, tennis and mountain biking. Tolerating physical activity well with overall good exercise capacity. Returns to the office with his spouse for routine follow-up. Reports doing well. Very rare brief palpitations. He had a CT chest for his aortic dilatation in 06/2021, followed by a visit with Dr. South at [facility] CT surgery, who recommended yearly follow up. He denies CP, SOB, syncope, orthopnea, PND, edema, fevers, chills, digestive troubles, bleeding, arthralgia, myalgia. He has been intolerant of a variety of antiarrhythmic medications including flecainide, amiodarone, dofetilide, diltiazem and atenolol. Had two Pfizer Cortera vaccines in October 2020, had arm pain and felt tired after the second one. Current Outpatient Medications Medication Sig Dispense Refill ??? ascorbic acid (VITAMIN C) 500 mg tablet Take 500 mg by mouth daily. ??? dilTIAZem (CARDIZEM) 30 mg tablet Take 1 Tablet by mouth 2 times daily. 180 Tablet 3 ??? fish oil-omega-3 fatty acids 340-1,000 mg capsule Take 1 Cap by mouth daily. ??? lisinopriL (PRINIVIL) 10 mg tablet Take 2 Tablets by mouth every morning AND 1 Tablet every evening. 270 Tablet 3 ??? Multivitamins with Minerals Tab Take 1 Tab by mouth daily. ??? rivaroxaban (XARELTO) 20 mg tablet tablet Take 1 Tablet by mouth daily with dinner. 90 Tablet 3 ??? UNABLE TO FIND Medical me No current facility-administered medications for this visit. Past Medical History Paroxysmal atrial fibrillation since 2006 4 AF ablation procedures with pulmonary vein isolation 08/2008, 10/2010, 05/2011, 10/2012, Dr. Hendricks,[facility] Initiation of antiarrhythmic therapy with dofetilide 08/2010, medication discontinued due to side effects Negative tilt table test at [facility] 06/2013, Reproduction of lightheadedness with mental fogginess, weakness and near syncope near the end of the tilt study, on Isuprel 5 mcg/minute IV, with a blood pressure juan manuel of 107/66 at that time and a heart rate of 112. 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 Reveal LINQ explant 02/2020. Family History Mother: alive, diagnosed with No [...] patient have barriers to learning? No. 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 Allergies flecainide: hallucinations amiodarone Tikosyn atenolol fresh fruit: anaphylaxis: Allergy I have reviewed current problem list and current medications. ROS: A 10-system ROS was performed, pertinent items as mentioned in HPI, otherwise negative. Objective: Examination: Home Vitals: BP 128/74 (BP Cuff Location: Right arm, BP Patient Position: Sitting, BP Cuff Sizes: Adult, regular) Pulse 68 Ht 177.8 cm (70) Wt 68.3 kg (150 lb 8 oz) SpO2 100% BMI 21.59 kg/m?? General Exam: GENERAL APPEARANCE: no acute distress, pleasant, cooperative. HEENT EYES: conjunctiva clear, sclerae anicteric, THROAT: pharynx normal. NECK: supple, no thyromegaly, no JVD, no carotid bruit. CHEST: normal shape and expansion. HEART: regular rate and rhythm, normal S1S2, no murmurs, rub or gallop. LUNGS: clear to auscultation & percussion, good air entry bilaterally. ABDOMEN: soft, NT/ND, BS present. EXTREMITIES: no clubbing, no cyanosis, no edema. PERIPHERAL PULSES: carotid, radial, femoral, PT: 2+ bilaterally. SKIN: warm & dry. NEUROLOGIC EXAM: alert & oriented x3, nonfocal, normal speech, gait normal. Labs: Lab Results Component Value Date CHOL 177 08/27/2010 CHOL 197 03/23/2009 HDL 58 08/27/2010 HDL 54 03/23/2009 LDLBASE 102 08/27/2010 LDLBASE 103 03/23/2009 TRIG 83 08/27/2010 TRIG 201 (H) 03/23/2009 CHOLHDL 3.1 08/27/2010 CHOLHDL 3.6 03/23/2009 BUN Date Value Ref Range Status 10/08/2012 15 10 - 26 mg/dl Final BUN - [facility] Date Value Ref Range Status 06/26/2020 30 (H) 10 - 26 mg/dL Final Creatinine Date Value Ref Range Status 07/12/2021 1.04 0.66 - 1.25 mg/dL Final 10/08/2012 0.81 0.66 - 1.25 mg/dl Final Potassium Date Value Ref Range Status 06/26/2020 4.8 3.5 - 5.0 mEq/L Final 10/08/2012 4.8 3.5 - 5.0 mEq/L Final Magnesium Date Value Ref Range Status 08/26/2010 2.3 1.7 - 2.8 mg/dl Final CALCIUM - [facility] Date Value Ref Range Status 06/26/2020 9.8 8.5 - 10.5 mg/dL Final Lab Results Component Value Date HGBA1C 5.4 08/26/2010 Data review: [employer] event monitor 06/17/2015-07/29/2015: Preliminary [...] fatty herniation into the left lower chest. Echo 07/2020: Moderately dilated aortic root and ascending aorta. Tricupid AV, trace AI. Mild LVH, normal EF. Normal RV. Normal LA and RA size. Normal MV morphology, mild MR. TV prolapse, moderate TR. Normal PASP. Holter 08/2020: 1. Baseline Sinus Rhythm with BBB: The average heart rate was 75 BPM. The minimum heart rate was 60 BPM, occurring at 2:37:36 AM D2. The maximum heart rate was 152 BPM, occurring at 5:42:23 AM D1. 2. Rare PVC, 0.4%: Ventricular ectopic activity consisted of 850 beats, of which, 791 were in single PVCs, 59 were single VEs. 3. Occ. PAC, 1.4%, few atrial runs: Supraventricular ectopic activity consisted of 2962 beats, of which, 61 were in 11 runs, 48 were in atrial couplets, 149 were late beats, 2019 were single PACs, 8 were in bigeminy, 677 were in trigeminy. ??The longest supraventricular run occurred at 5:30:33 PM D1 consisting of 19 beats, with maximum heart rate of 141 BPM. The fastest supraventricular run occurred at 5:18:00 AM D1, consisting of 3 beats, with maximum heart rate of 169 BPM. 4. No significant pauses: ??The longest R-R interval was 1.5 seconds occurring at 7:05:56 PM D2. 5. Symptoms: LIGHTHEADED x1 with SR, 79/min; DIZZY x1 with SR, 82/min; CHEST PAIN x1 with SR, 85/min & PAC; HEADACHE x1 with SR, 79/min; CHEST TIGHTNESS x1 with SR, 75/min. Labs NV 02/04/2021: K 5.3, Cr 1.1, LFTs normal, Total chol 187, LDL 124, HDL 50. CT angio chest, [facility] 06/2021: 1. Stable ascending aortic aneurysm 4.8 cm at the sinuses of Valsalva: 4.4 cm in the mid ascending aorta. 2. Mild atherosclerotic narrowing of the proximal left subclavian artery. 3. Minimal middle lobe scarring. 4. Stable small low-attenuation lesions both lobes of thyroid. 5. Small left renal cyst. ?? Assessment & Plan: 1. PAF (paroxysmal atrial fibrillation) (HCC-CMS) ([facility]) 2. Ectopic atrial tachycardia (HCC-CMS) ([facility]) 3. Status post catheter ablation of atrial fibrillation 4. Essential (primary) hypertension 5. Thoracic aortic aneurysm without rupture (HCC-CMS) ([facility]) 66-year-old man with history of paroxysmal atrial fibrillation since 2006, status post 4 AF ablationprocedures [id number], intolerance to multiple antiarrhythmic medications, 2 syncopal episodes of unclear etiology and aortic root dilatation. Had dizzy spells, palpitations and shortness of In 2017, int erfering with his daily work. Referral to an autonomous nervous systems administration analyst did not yield new diagnoses. Had Reveal LINQ potline monitor implant until 02/2020. Continues doing well with reasonablesuppression of arrhyhmia on low-dose diltiazem. Holter was reassuring without recurrence of AF, onlyfew atrial runs. Follow up CTA chest 06/2021 at [facility] regarding his dilated ascending aorta showed stable findings. [place] Dr. South in CT surgery, who recommended yearly f/u. BP well controlled. Lipids reasonable. Discussed follow up frequency for TAA. Continue current meds for now. I spent a total of 30 minutes on the date of this encounter meeting with the patient and reviewing documentation (including chest imaging)/coordinating care as described in the above note. No procedures were performed at the time of the visit. Shelton Smith MD documented in this encounter Plan of Treatment Upcoming Encounters Date Type Specialty Care Team Description 09/13/2022 Office Visit Cardiology Shelton Smith MD [address] [place] [address] [address] [place] [phone] (Wo rk) documented as of this encounter Visit Diagnoses Diagnosis PAF (paroxysmal atrial fibrillation) (HC C-CMS) (HCC) - Primary Atrial fibrillation Ectopic atrial tachycardia (HCC-CMS) (HC C) Other specified cardiac dysrhythmias Status post catheter ablation of atrial fibrillation Essential (primary) hypertension Unspecified essential hypertension Thoracic aortic aneurysm without rupture (HCC-CMS) (HCC) Thoracic aneurysm without mention of rup ture documented in this encounter Discontinued Medications Medication Sig Discontinue Reason Start Date End Date rivaroxaban (XARELTO) 20 Take 1 Tab by mouth 1 01/03/2022 mg tablet tablet daily with dinner. dilTIAZem (CARDIZEM) 30 Take 1 Tab by mouth Reorder 12/29/2020 01/03/2022 mg tablet 2 times daily. lisinopriL (PRINIVIL) 10 Take 1 Tab by mouth Reorder 1 01/03/2022 mg tablet 3 times daily. 2 tabs in the morning, 1 tab at night. rivaroxaban (XARELTO) 20 Take 1 Tab by mouth 1 01/03/2022 mg tablet tablet daily with dinner. documented as of this encounter Historical Medications This list may reflect changes made after this encounter. Medication Sig Dispensed Refills Start Date End Date UNABLE TO FIND Medical me 0 added in this encounter Care Teams Billing Services Manager Relationship Specialty Start Date End Date Tho Genao [facility] 07/13/[address] [place] [phone] Shelton Smith, Cardiovascular Disease [address] [place] [address] [address] [phone] documented as of this encounter
--- OUTSIDE RECORDS SUMMARY | 2022-02-07 01:32 | XMS_ITS | Encounter Summary ---
:1955 Author Organization [facility] Address [address] [place] [address] Care Team Providers Name Role Phone Shelton Smith MD Unavailable [phone] Tho Genao Primary Care Provider Reason for Visit Reason Comments Follow-up CTA Scan today Encounter Details Date Type Department Care Team Description 07/13/2021 Office Visit [facility] Nasima South MD Ascending aorta Cardiothoracic Surgery [address] [facility] ([facility]) (HCC) [address] [facility], Level 5 (Primary Dx) [place], [place] [address] [place] [address] [phone] (Wo rk) Social History Tobacco Use [...] Sign Reading Time Taken Comments Blood Pressure 122/70 07/13/2021 0956 EST Pulse 102 07/13/2021 0956 EST regular Temperature 36.3 ??C (97.3 ??F) 07/13/2021 0956 EST Respiratory Rate 18 07/13/2021 0956 EST Oxygen Saturation 99% 07/13/2021 0956 EST Inhaled Oxygen Concentration - - Weight 68 kg (150 lb) 07/13/2021 0956 EST Height 177.8 cm (5' 10) 07/13/2021 0956 EST Body Mass Index 21.52 07/13/2021 0956 EST documented in this encounter Functional Status Functional [...] making decisions? documented as of this encounter Patient Instructions Patient InstructionsNori Lo - 07/13/2021 10:[address] South he would like to see you during the month of June in the year of 2021 with an imaging study and office visit for follow-up on the same day. The Surgeon's Clinical Billboard Erector Helper will contact you to set up your appointments during the month preceding the appointments. If you do not hear from the Clinical Billboard Erector Helper during that month, please michael your calendar and contact our office at to schedule the appointments. AVOID IF POSSIBLE, the Class of Fluoroquinolone Antibiotics as they may be associated with an increased risk of aortic aneurysm or dissection. Discuss this with your Primary Care Doctor. There are several different antibiotics under this Class. You should have your blood pressure checked daily, before you take your medications, and report these blood pressures to your Primary Care Doctor. We suggest that you have a blood pressure monitor at home and periodically (three times per year) bring your monitor into your Primary Care Doctor to have it checked for accuracy. You should also follow with your Primary Care Doctor for blood pressure monitoring in his/her office as per their direction. Contact your Primary Care Doctor if your systolic blood pressure (the top number) is greater than 120 You may have a lifting, pushing, pulling restriction regarding your aneurysm. If your Surgeon has instructed you on this, the lifting, pushing, pulling restriction is nothing more than 50 pounds with no strenuous activity. This is indefinitely. Continue your regular follow-up with your Primary Care Doctor and any other Doctors that you normally follow with. Follow closely with your Doctors for health care maintenance as this is very important. Per the Surgeon, if you have chest, jaw, neck, arm, back, abdominal pain or pressure, shortness of breath, dizziness, sweating with dizziness, nausea, fainting (passing out), near fainting, leg or arm weakness, numbness of your legs or arms, inability to speak or change in speech, unequal smile (face is uneven) call 911 immediately. Feel free to contact our office at if you have any questions. Thank you. documented in this encounter Progress Notes Chester South MD - 07/13/2021 1000 EST Cardiothoracic Surgery Consult Chief Complaint: Ascending aortic aneurysm Referring Physician: Dr. Smith History of Present Illness: I had the pleasure of seeing Braulio Garcia in evaluation for his ascending aortic aneurysm. As you know he is a pleasant 65-year-old male with past medical history significant for atrial fibrillation status post ablations, hypercoagulable state, on Xarelto, that has been followed for an ascending aortic root aneurysm. He has been followed by Dr. Peña and subsequently by Dr. Bliss, with his most recent CT scan from 07/23/2019 demonstrating his aortic root to measure 4.8 cm in dimension. Prior to that, as reported by Dr. Peña, he had a cardiac MRI in 2009 which demonstrated his aortic root to measure 4.[address] scan in 2015 demonstrated his aortic root to measure 4.[address] imaging in 2016 and 2018 demonstrated his aortic root to be largely unchanged. The patient now presents for his 2-year follow-up. In the interim he did have a transthoracic echocardiogram on 07/29/2020, which demonstrated his aortic valve to be trileaflet, with trace aortic insufficiency. There was mild mitral sufficiency and moderate tricuspid insufficiency. He otherwise denies having any new changes to his health in the interim. He continues to have his underlying atrial fibrillation. He denies having any chest pains or back pains, or any shortness of breath. He is fairly active, but has limited his strenuous activity. He states that his systolic blood pressures typically 120s. He did have a CT angiogram today which demonstrated his aortic root to be largely stable, with radiology report of 4.8 cm. On my interpretation, there does appear to be some variance, with measurementsranging from 4.8 to 5.0 cm and unclear whether there is potential slight increase in growth. His ascending aorta measured 4.1 cm. Past Medical History: Past Medical History: Diagnosis Date ??? A-fib (HCC-CMS) (HCC) 10/09/2012 ??? AF (atrial fibrillation) (HCC-CMS) (HCC) had ablation 2 yrs ago ??? Cancer (HCC-CMS) (HCC) skin cancer on face and back Past Surgical History: Past Surgical History: Procedure Laterality Date ??? ABLATION OF DYSRHYTHMIC FOCUS ??? NASAL SEPTUM SURGERY 2006 ??? TONSILLECTOMY childhood Family History: Family History Problem Relation Age of Onset ??? High Cholesterol Mother ??? Heart Disease Father ??? Heart Disease Brother ??? Cancer Maternal Grandfather ??? Heart Disease Paternal Grandmother Social History: Social History Socioeconomic History ??? Marital status: Spouse name: Not on file ??? Number of children: Not on file ??? Years of education: Not on file ??? Highest education level: Not on file Occupational History ??? Not on file Tobacco Use ??? Smoking status: Never Smoker ??? Smokeless tobacco: Never Used Substance and Sexual Activity ??? Alcohol use: Yes Comment: rare ??? Drug use: No ??? Sexual activity: Not on file Other Topics Concern ??? Not on file Social History Narrative ??? Not on file Social Determinants of Health Financial Resource Strain: ??? Difficulty of Paying Living Expenses: Not on file Food Insecurity: ??? Worried About Running Out of Food in the Last Year: Not on file ??? Ran Out of Food in the Last Year: Not on file Transportation Needs: ??? Lack of Transportation (Medical): Not on file ??? Lack of Transportation (Non-Medical): Not on file Physical Activity: ??? Days of Exercise per Week: Not on file ??? Minutes of Exercise per Session: Not on file Stress: ??? Feeling of Stress : Not on file Social Connections: ??? Frequency of Communication with Friends and Family: Not on file ??? Frequency of Social Gatherings with Friends and Family: Not on file ??? Attends Judaism Services: Not on file ??? Active Member of Clubs or Organizations: Not on file ??? Attends Club or Organization Meetings: Not on file ??? Marital Status: Not on file Medications: Current Outpatient Medications Medication ??? ascorbic acid (VITAMIN C) 500 mg tablet ??? dilTIAZem (CARDIZEM) 30 mg tablet ??? fish oil-omega-3 fatty acids 340-1,000 mg capsule ??? lisinopriL (PRINIVIL) 10 mg tablet ??? Multivitamins with Minerals Tab ??? rivaroxaban (XARELTO) 20 mg tablet tablet ??? rivaroxaban (XARELTO) 20 mg tablet tablet No current facility-administered medications for this visit. Allergies: Other - see comments, Amiodarone, Atenolol, Dofetilide, Flecainide, and Keflex [cephalexin] ROS: Aside from what is listed in the History of Present Illness, a complete Review of Systems has been performed and is otherwise negative. OBJECTIVE: VS: Blood pressure 122/70, pulse 102, temperature 36.3 ??C (97.3 ??F), temperature source Temporal, resp. rate 18, height 177.8 cm (70), weight 68 kg (150 lb), SpO2 99 %. Gen: NAD, WDWN elderly male of thin stature HEENT: EOMI, MMM, neck soft Chest: No obvious chest wall deformities. CV: RRR Pulm: non-labored respirations, clear to auscultation bilaterally Abd/GI: Soft, NT Skin/Ext: Soft, warm, well perfused, minimal edema Neuro: Neurologically grossly intact Psych: Alert and oriented, cooperative with the physical exam and interview Labs: Lab Results Component Value Date/Time WBC 7.43 10/08/2012 08:20 HGB 14.3 06/26/2020 09:27 HCT 44.4 10/08/2012 08:20 PLT 298 06/26/2020 09:27 NA 138 06/26/2020 09:27 K 4.8 06/26/2020 09:27 CL 102 06/26/2020 09:27 CO2 28 06/26/2020 09:27 BUN 30 (H) 06/26/2020 09:27 CREATININE 1.04 07/12/2021 09:25 Chest x-ray/CT Chest: 07/23/21 Comparison: 07/07/2017. ?? Findings: Opacification of the aorta is good. No dissection or other acute aortic abnormality identified. The dilated ascending aorta is stable compared to the prior examination (measurements below are re-measured in a similar location on the prior study - these may differ slightly from the prior measurements). ?? Maximum dimension: Aortic root at sinuses of Valsalva: 4.8 cm Sinotubular junction: 4.4 cm Ascending aorta: 4.1 cm Aortic Arch: 3.3 cm Descending thoracic aorta: 3.1 cm ?? Lower neck: Stable small thyroid nodules. ?? Chest wall soft tissues: Loop recorder in the left chest wall. ?? Mediastinum and rubia: No enlarged mediastinal or hilar lymph nodes. ?? Heart and mediastinal vasculature: No abnormalities. The coronary arteries are well opacified and are normal (diminutive left circumflex coronary artery, with a large dominant right coronary artery). ?? Large airways: No abnormalities. ?? Lungs: Scattered small foci of linear scarring or atelectasis. No significant abnormalities. ?? Pleura: No abnormalities. ?? Upper abdomen (limited to upper abdomen, not optimized for abdominal imaging): No abnormalities. ?? Bones: No significant abnormalities. ?? IMPRESSION 1. Stable dilated ascending aorta. 2. Loop recorder in the left chest wall. 3. Scattered small foci of linear scarring or atelectasis in the lungs. ?? ASSESSMENT/PLAN: 65-year-old male with past medical history significant for atrial fibrillation status post ablations, hypercoagulable state, on Xarelto, that has been followed for an ascending aortic root aneurysm. His ascending aortic aneurysm has been largely from 2016, measuring up to 5.0 cm. The patient does havea trileaflet aortic valve, with effacement of his sinotubular junction, no family history of thoracic aneurysmal disease, and without any symptoms attributed to his aneurysm. While the stability of hisaneurysm is encouraging, given its size as well as potentially slight increase in size over the past2 years, we will obtain the next CT scan in 1 year. Typically our cutoff for prophylactic ascending aortic aneurysm repair is 5.5 cm or greater in patients with a trileaflet aortic valve and no known family history of thoracic aneurysmal disease. In patients with a bicuspid aortic valve or family history of thoracic aneurysmal disease, prophylactic ascending aneurysm repair is 5.0 cm or greater in appropriate risk surgical candidates. I instructed the patient to continue strict blood pressure control and monitoring, and to maintain diligence with their antihypertensive regimen. In addition, the patient was informed to refrain from any heavy lifting, straining, or any excessive strenuous activity. I also counseled the patient on thesigns and symptoms of acute aortic pathology. We look forward to seeing Mr. Garcia in 1 year, and we will certainly keep you up-to-date with the status of his progress. Thank you for giving me the opportunity to help participate in the care this patient, should you have any further questions please do not hesitate to give me a call. Chester South MD Cardiothoracic Surgery [phone] (office) 07/13/2021 12:52 documented in this encounter Plan of Treatment Upcoming Encounters Date Type Specialty Care Team Description 09/13/2022 Office Visit Cardiology Shelton Smith MD [address] [place] [address] [address] [place] [address] (Wo rk) documented as of this encounter Visit Diagnoses Diagnosis Ascending aorta dilatation (HCC-CMS) (HC C) - Primary Thoracic aortic ectasia documented in this encounter Care Teams Fire Patrol Relationship Specialty Start Date End Date Tho Genao [facility] 07/13/[address] [place] [phone] Shelton Smith, Cardiovascular Disease [address] [place], [place] [address] [address] [place] [address] documented as of this encounter
--- OUTSIDE RECORDS SUMMARY | 2022-02-07 01:32 | XMS_ITS | Encounter Summary ---
:1955 Author Organization [facility] Address [address] [place] [address] Care Team Providers Name Role Phone Uriah Davis MD Primary Care Provider Reason for Visit Reason Onset Date Comments Medication Questions 07/01/2020 Encounter Details Date Type Department Care Team Description 07/01/2020 Telephone [facility] - Shelton Smith ication Questions [facility] Cardiology Clin ic MD Lb [address] [facility] [address] [place] [address] [address] [place] [phone] (Wo rk) Social History Tobacco Use Types [...] - Keaton De La Torre RN - 07/06/2020 1322 EST is addressing directly. elephone Encounter - Keaton De La Torre RN - 07/03/2020 1039 EST Spoke with . He is going to check labs and will address later today. Pt was inquiring about lowering his Xarelto dosing and the only reason to do so would be based on kidney function, per . elephone Encounter - Amos Sher - 07/03/2020 0839 EST PT called this morning for update on previous note. He said [facility] about to fill theprescription Xarelto and he didn't want to fill if he was going to be dropping down to 10mg. He willbe out running errands this morning but is okay to leave a voicemail. elephone Encounter - Sophia Quintanilla RN - 07/01/2020 1503 EST How shall I advise patient on his recent labs? elephone Encounter - Amos Sher - 07/01/2020 1355 EST Yonis Garcia called and wanted to speak to someone about his recent blood work results that Dr. Smith had ordered correlating with some of his medications. Dr. Smith had mentioned dropping the dosageon one of his medications if blood work indicated he was anemic. PT said okay to call back and talk with as he will be exercising. Best return number is [phone] signed by Amos Sher at 07/01/2020 14:01 ESTdocumented in this encounter Plan of Treatment Upcoming Encounters Date Type Specialty Care Team Description 09/13/2022 Office Visit Cardiology Shelton Smith MD [address] [place] [address] [address] [place] [address] (Wo rk) documented as of this encounter Visit Diagnoses Not on filedocumented in this encounter Care Teams Hybrid Technologist Relationship Specialty Start Date End Date Uriah Davis MD PCP - General 01/17/19 07/12/21 documented as of this encounter
--- OUTSIDE RECORDS SUMMARY | 2022-02-07 01:32 | XMS_ITS | Encounter Summary ---
:1955 Author Organization [facility] Address [address] [place] [address] Care Team Providers Name Role Phone Uriah Davis MD Primary Care Provider Shelton Smith MD Unavailable [phone] Reason for Visit Reason Comments Follow-up Atrial Fibrillation Hypertension Encounter Details Date Type Department Care Team Description 07/05/2021 Office Visit [facility] - Shelton Smith PAF (paroxysmal atrial fibrillation) (HCC-CMS) ([facility]) (Primary Dx); [facility] Cardiology MD Lb Thoracic aortic aneurysm without rupture (HCC-CMS) (HCC); Clinic [address] Status post catheter ablation of atrial fibrillation; [address] Essential (primary) hypertension; [place] [address] [place] Ectopic atrial tachycardia ( HCC-CMS) ([facility]) [phone] Social History Tobacco Use Types Packs/Day [...] Sign Reading Time Taken Comments Blood Pressure 116/72 07/05/2021 0809 EST Pulse 73 07/05/2021 0809 EST Temperature - - Respiratory Rate - - Oxygen Saturation 96% 07/05/2021 0809 EST Inhaled Oxygen Concentration - - Weight 69.3 kg (152 lb 12.8 oz) 07/05/2021 0809 EST Height 177.8 cm (5' 10) 07/05/2021 0809 EST Body Mass Index 21.92 07/05/2021 0809 EST documented in this encounter Functional Status [...] encounter Progress Notes Shelton Smith MD - 07/05/2021814 EST [facility] Cardiology Clinic Visit Subjective: Chief Complaint(s): Follow-up, Atrial Fibrillation , and Hypertension HPI: 65-year-old man with history of paroxysmal atrial fibrillation since 2006, status post 4 AF ablationprocedures [id number], intolerance to multiple antiarrhythmic medications, 2 syncopal episodes attributed to vasovagal spells, hypercoagulable state of unclear etiology and aortic root dilatation. Reveal LINQ cardiac rn implant from 08/2016 until 02/2020. This documented [...] office with his spouse for routine follow-up. Continues doing well. He has occasionalbrief palpitations, where he notes his HR staying in the 100-130/min range for a prolonged time, sometimes a full day. The last two times, an extra diltiazem did not seem to help. He is scheduled to have a f/u CT chest for his aortic dilatation. He denies CP, SOB, syncope, orthopnea, PND, edema, fevers, chills, digestive troubles, bleeding, arthralgia, myalgia. He has been intolerant of a variety of antiarrhythmic medications including flecainide, amiodarone, dofetilide, diltiazem and atenolol. Had two Pfizer Covid vaccines in October, had arm pain and felt tired after the second one. Data review: [employer] event monitor 06/17/2015-07/29/2015: Preliminary [...] fatty herniation into the left lower chest. Current Outpatient Medications Medication Sig Dispense Refill ??? ascorbic acid (VITAMIN C) 500 mg tablet Take 500 mg by mouth daily. ??? dilTIAZem (CARDIZEM) 30 mg tablet Take 1 Tab by mouth 2 times daily. 180 Tab 3 ??? fish oil-omega-3 fatty acids 340-1,000 mg capsule Take 1 Cap by mouth daily. ??? lisinopriL (PRINIVIL) 10 mg tablet Take 1 Tab by mouth 3 times daily. 2 tabs in the morning, 1 tab at night. 270 Tab 3 ??? Multivitamins with Minerals Tab Take 1 Tab by mouth daily. ??? rivaroxaban (XARELTO) 20 mg tablet tablet Take 1 Tab by mouth daily with dinner. 90 Tab 3 ??? rivaroxaban (XARELTO) 20 mg tablet tablet Take 1 Tab by mouth daily with dinner. (Patient not taking: Reported on 07/13/2021) 5 Tab 3 No current facility-administered medications for this visit. Past Medical History Paroxysmal atrial fibrillation since 2006 4 AF ablation procedures with pulmonary vein isolation 08/2008, 10/2010, 05/2011, 10/2012, Dr. Hendricks,[facility] Initiation of antiarrhythmic therapy with dofetilide 08/2010, medication discontinued due to side effects Negative tilt table test at [facility] 06/2013, Reproduction of lightheadedness with mental fogginess, weakness and near syncope near the end of the tilt study, on Isuprel 5 mcg/minute IV, with a blood pressure juan manuel of 107/66 at that time and a heart rate of 112. 2 syncopal episodes in 2012 with head injury, attributed to vasovagal spells Hypercoagulable state of unclear etiology, negative workup at [facility] hematology 2010 First ablation procedure complicated [...] patient have barriers to learning? No. 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 Allergies flecainide: hallucinations amiodarone Tikosyn atenolol fresh fruit: anaphylaxis: Allergy I have reviewed current problem list and current medications. ROS: A 10-system ROS was performed, pertinent items as mentioned in HPI, otherwise negative. Objective: Examination: Home Vitals: BP 116/72 (BP Cuff Location: Right arm, BP Patient Position: Sitting, BP Cuff Sizes: Adult, regular) Pulse 73 Ht 177.8 cm (70) Wt 69.3 kg (152 lb 12.8 oz) SpO2 96% BMI 21.92 kg/m?? General Exam: GENERAL APPEARANCE: no acute [...] Results Component Value Date HGBA1C 5.4 08/26/2010 Echo 07/2020: Moderately dilated aortic root and [...] CHEST TIGHTNESS x1 with SR, 75/min. Labs [facility] 02/04/2021: K 5.3, Cr 1.1, LFTs normal, Total chol 187, LDL 124, HDL 50. Assessment & Plan: 1. PAF (paroxysmal atrial fibrillation) (HCC-CMS) ([facility]) 2. Thoracic aortic aneurysm without rupture (HCC-CMS) ([facility]) 3. Status post catheter ablation of atrial fibrillation 4. Essential (primary) hypertension 5. Ectopic atrial tachycardia (HCC-CMS) ([facility]) 65-year-old man with history of paroxysmal atrial fibrillation since 2006, status post 4 AF ablationprocedures [id number], intolerance to multiple antiarrhythmic medications, 2 syncopal episodes of unclear etiology and aortic root dilatation. Had dizzy spells, palpitations and shortness of In 2017, int erfering with his daily work. Referral to an autonomous nervous security system sales consultant did not yield new diagnoses. Had Reveal LINQ cardiac rn implant until 02/2020. Continues doing well with reasonablesuppression of arrhyhmia on low-dose diltiazem. Follow up echo regarding his dilated ascending aorta showed stable findings, scheduled for repeat CTA chest next week. Holter was reassuring without recurrence of AF, just a few atrial runs. BP well controlled. Lipids reasonable, discussed nutrition issues. Continue current meds for now. Discussed AFand connection with inflammatory issues. I spent a total of 30 minutes on the date of this encounter meeting with the patient and reviewing documentation/coordinating care as described in the above note. No procedures were performed at the time of the visit. Shelton Smith MD documented in this encounter Plan of Treatment Upcoming Encounters Date Type Specialty Care Team Description 09/13/2022 Office Visit Cardiology Shelton Smith MD [address] [place], [place] [address] [address] [place] [address] (Wo rk) documented as of this encounter Visit Diagnoses Diagnosis PAF (paroxysmal atrial fibrillation) (HC C-CMS) (HCC) - Primary Atrial fibrillation Thoracic aortic aneurysm without rupture (HCC-CMS) (HCC) Thoracic aneurysm without mention of rup ture Status post catheter ablation of atrial fibrillation Essential (primary) hypertension Unspecified essential hypertension Ectopic atrial tachycardia (HCC-CMS) (HC C) Other specified cardiac dysrhythmias documented in this encounter Care Teams Water Project Manager Relationship Specialty Start Date End Date Uriah Davis MD PCP - General 01/17/19 07/12/21 Shelton Smith MD Cardiovascular Disease 07/02/[address] [place], [place] [address] [address] [place] [address] documented as of this encounter
--- OUTSIDE RECORDS SUMMARY | 2022-02-07 01:32 | XMS_ITS | Encounter Summary ---
:1955 Author Organization [facility] Address [address] [place] [address] Care Team Providers Name Role Phone Uriah Davis MD Primary Care Provider Reason for Visit Reason Onset Date Comments Other 10/25/2019 Issues with Carelink box Encounter Details Date Type Department Care Team Description 10/25/[address] [facility] - Shelton Smith [facility] er (Issues with [facility] Cardiology Clin ic MD Lb Carelink box) [address] [place] [address] [address] [place] [address] (Wo rk) Social History Tobacco Use Types [...] this encounter Miscellaneous Notes Telephone Encounter - Kaye Boo - 10/25/2019 1342 EDT Braulio called looking for a copy of his September remote reveal check. I didn't see a copy of it in hischart so I looked on the [employer] site. His remote box has been disconnected since Sep 17, I explained this to pt and his . I advised them to unplug it, plug it back in and try and send a manual transmission to get it back working automatically, they relayed understanding. Braulio called back to say it was showing a low battery indicator so they left it charging for a fewhours however it still wasn't working. I called and spoke with Kelly at [employer], she put in an order for a new remote box to be sent to pt's house via [employer], should arrive in 7-10 business days. Pt relayed understanding and will await new carelink box arrival. documented in this encounter Plan of Treatment Upcoming Encounters Date Type Specialty Care Team Description 09/13/2022 Office Visit Cardiology Shelton Smith MD [address] [place] [address] [address] [place] [address] (Wo rk) documented as of this encounter Visit Diagnoses Not on filedocumented in this encounter Care Teams Hazardous Waste Management Specialist Relationship Specialty Start Date End Date Uriah Davis MD PCP - General 01/17/19 07/12/21 documented as of this encounter
--- OUTSIDE RECORDS SUMMARY | 2022-02-07 01:32 | XMS_ITS | Encounter Summary ---
:1955 Author Organization [facility] Address [address] [place] [address] Care Team Providers Name Role Phone Uriah Davis MD Primary Care Provider Encounter Details Date Type Department Care Team Description 11/01/2019 Orders Only [facility] - Jasiel Banegas, Atr ial fibrillation, [facility] [place] Clin ic TELEPHONE ENGINEER unspecified type [address] ([facility]) (Primary Dx) [place] [address] [address] [place] [address] Social History Tobacco Use Types Packs/Day Years [...] 09/13/2022 Office Visit Cardiology Shelton Smith MD [address] [place] [address] [address] [place] [address] (Wo rk) documented as of this encounter Visit Diagnoses Diagnosis Atrial fibrillation, unspecified type (H CC-CMS) ([facility]) - Primary documented in this encounter Orders Implantable Cardiac Device Count Last Ordered Date Fir st Ordered Date CARDIAC IMPLANT CHECK - REMOTE MONITOR 1 0 documented in this encounter Care Teams Show Host Or Hostess Relationship Specialty Start Date End Date Uriah Davis MD PCP - General 01/17/19 07/12/21 documented as of this encounter
--- OUTSIDE RECORDS SUMMARY | 2022-02-07 01:32 | XMS_ITS | Encounter Summary ---
:1955 Author Organization [facility] Address [address] [place] [address] Care Team Providers Name Role Phone Uriah Davis MD Primary Care Provider Reason for Visit Reason Comments Atrial Fibrillation Follow-up Encounter Details Date Type Department Care Team Description 09/25/2020 Telemedicine [facility] - Shelton Smith PAF (paroxysmal atrial fibrillation) ([facility]) (Primary Dx); [facility] Cardiology MD Lb Essential (primary) hypertension; Clinic [address] [facility] Ectopic atrial tachycardia ([facility]); [address] [facility] [address] Status post catheter ablation of atrial fibrillation; [place] [address] [place] Thoracic aortic aneurysm wit hout rupture ([facility]) [phone] [address] Social History Tobacco Use Types Packs/Day [...] encounter Progress Notes Shelton Smith MD - 09/25/2020 1500 EST [facility] Cardiology Telemedicine Visit Today's visit was provided through telemedicine video conferencing: The location of the patient: Home The location of the provider: Office Verbal consent: The concept of ???Telemedicine?? has been described to the patient.Patient has been informed of theanticipated benefits and possible risks. Patient understands the [...] since 2006, status post 4 AF ablationprocedures [id number], intolerance to multiple antiarrhythmic medications, 2 syncopal episodes attributed to vasovagal spells, hypercoagulable state of unclear etiology and aortic root dilatation. Reveal LINQ secured entrance monitor implant from 08/2016 until 02/2020. This documented one prolonged (>12h) episode of AF in 2019, noted as dizziness and palpitations that he attributed to dehydration. He declined adding an anticoagulant to his medication regimen at that time, but started on Xarelto in 09/2019. Continues with medicinal marijuana to treat his headaches. Regular physical activities include marathon training, tennis and mountain biking. Tolerating physical activity well with overall good exercise capacity. Today at video visit with his spouse for routine follow-up. He reports that he is overall doing well, today is a good day. Some days are worse, feeling more tired, in recent months. He has occasionalpalpitations/AF spells, where HRs up to 150/min cause upper left chest tightness. Will get his first COVID vaccination today. He denies CP, SOB, syncope, orthopnea, PND, [...] ??? DILTiazem (CARDIZEM) 30 mg tablet Take 1 Tab [...] mouth daily with dinner. 90 Tab 3 No current facility-administered medications for this visit. Past Medical History Paroxysmal atrial fibrillation since 2006 4 AF ablation procedures with pulmonary vein isolation 08/2008, 10/2010, 05/2011, 10/2012, Dr. Hendricks,[facility] Initiation of antiarrhythmic therapy with dofetilide 08/2010, medication discontinued due to side effects Negative tilt table test at [facility] 06/2013, Reproduction of lightheadedness with mental fogginess, weakness and near syncope near the end of the tilt study, on Isuprel 5 mcg/minute IV, with a blood pressure juan manuel of 107/66 at that time and a heart rate of 112. 2 syncopal episodes in 2012 with head injury, attributed to vasovagal spells Hypercoagulable state of unclear etiology, negative workup at [facility] hematology 2010 First ablation procedure complicated by [...] patient have barriers to learning? No. 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 Allergies flecainide: hallucinations amiodarone Tikosyn atenolol fresh [...] Final Creatinine Date Value Ref Range Status 10/08/2012 0.81 0.66 - 1.25 mg/dl Final CREATININE Date Value Ref Range Status 06/26/2020 1.09 0.66 - 1.25 mg/dL Final Potassium Date Value Ref Range Status [...] 79/min; CHEST TIGHTNESS x1 with SR, 75/min. Assessment & Plan: 1. PAF (paroxysmal atrial fibrillation) (HCC-CMS) 2. Essential (primary) hypertension 3. Ectopic atrial tachycardia (HCC-CMS) 4. Status post catheter ablation of atrial fibrillation 5. Thoracic aortic aneurysm without rupture (HCC-CMS) 64-year-old man with history of paroxysmal atrial fibrillation since 2006, status post 4 AF ablationprocedures [id number], intolerance to multiple antiarrhythmic medications, 2 syncopal episodes of unclear etiology and aortic root dilatation. Had dizzy spells, palpitations and shortness of In 2017, int erfering with his daily work. Referral to an autonomous nervous system planning engineer did not yield new diagnoses. Had Reveal LINQ secured entrance monitor implant until 02/2020. Continues overall doing very well with reasonable suppression of arrhyhmia on low-dose diltiazem. Now with more fatigue and mild increasein subjective AF occurrence, possibly related to Covid-related deconditioning. Follow up echo regarding his dilated ascending aorta with stable findings. Holter with out recurrence of AF, just a few atrial runs. Very reassuring results. Continue current meds for now. Treatment 1. Essential hypertension Continue Cardizem tablet, 30 mg, 1 tab(s), orally, two times a day Continue Lisinopril 30mg/d 2. Paroxysmal atrial fibrillation Continue Xarelto 20mg/d A total of 20 minutes was spent on this encounter on the day of this encounter. The following individuals and their role did participate in today's encounter visit: Provider: Shelton Smith MD Patient Spouse Shelton Smith MD documented in this encounter Plan of Treatment Upcoming Encounters Date Type Specialty Care Team Description 09/13/2022 Office Visit Cardiology Shelton Smith MD [address] [place] [address] [address] [place] [address] (Wo rk) documented as of this encounter Visit Diagnoses Diagnosis PAF (paroxysmal atrial fibrillation) (HC C-CMS) (HCC) - Primary Atrial fibrillation Essential (primary) hypertension Unspecified essential hypertension Ectopic atrial tachycardia (HCC-CMS) (HC C) Other specified cardiac dysrhythmias Status post catheter ablation of atrial fibrillation Thoracic aortic aneurysm without rupture (HCC-CMS) (HCC) Thoracic aneurysm without mention of rup ture documented in this encounter Care Teams Ld Teacher Relationship Specialty Start Date End Date Uriah Davis MD PCP - General 01/17/19 07/12/21 documented as of this encounter
--- OUTSIDE RECORDS SUMMARY | 2022-02-07 01:32 | XMS_ITS | Encounter Summary ---
:1955 Author Organization [facility] Address [address] [place] [address] Care Team Providers Name Role Phone Uriah Davis MD Primary Care Provider Encounter Details Date Type Department Care Team Description 09/20/2019 Travel Social History Tobacco Use Types Packs/Day Years [...] 09/13/2022 Office Visit Cardiology Shelton Smith MD [address] [place] [address] [phone] (Wo rk) documented as of this encounter Visit Diagnoses Not on filedocumented in this encounter Care Teams Information Systems Technician Relationship Specialty Start Date End Date Uriah Davis MD PCP - General 01/17/19 07/12/21 documented as of this encounter
--- OUTSIDE RECORDS SUMMARY | 2022-02-07 01:32 | XMS_ITS | Encounter Summary ---
:1955 Author Organization [facility] Address [address] [place] [address] Care Team Providers Name Role Phone Uriah Davis MD Primary Care Provider Reason for Visit Reason Onset Date Comments Other 01/31/2020 ? When reveal explan t is scheduled. Encounter Details Date Type Department Care Team Description 01/31/2020 Telephone [facility] - Maryellen Pantoja Ot her (? When reveal [facility] Cardiology Clin ic INDEPENDENT LIVING ADVISOR explant is scheduled. ) [address] [place] [address] [address] [place] [address] Social History Tobacco Use Types Packs/Day [...] Telephone Encounter - Sophia Quintanilla RN - 02/12/2020 1442 EDT Letter mailed to patient elephone Encounter - Sophia Quintanilla RN - 02/11/2020 1520 EDT Spoke with patient, he states that 02/24/2020 @ 7:30AM will work for reveal explant. Booking slip sent. Will call patient back with further instructions. Per patient OK to leave detailed instructions on his VM elephone Encounter - Sophia Quintanilla RN - 02/11/2020 1206 EDT MSG to call the office elephone Encounter - Sophia Quintanilla RN - 02/07/2020 0906 EDT Spoke with patient and notified him we are working on scheduling. He states any day works for him dandre is retired. The only time that will not work for him is between 04/12-04/19 as he will be on vacation. elephone Encounter - Kaye Boo - 01/31/2020 1057 EDT Pt is wondering when he is scheduled for his reveal explant. He stated it's not an emergency, however when he last spoke with Maryellen in December she told him he would hear back from us regarding this procedure. He is leaving for the day and would like a call back next week when he will be back home. [phone] documented in this encounter Plan of Treatment Upcoming Encounters Date Type Specialty Care Team Description 09/13/2022 Office Visit Cardiology Shelton Smith MD [address] [place], [place] [address]A [address] [place] [address] (Wo rk) documented as of this encounter Visit Diagnoses Not on filedocumented in this encounter Care Teams Trade Manager Relationship Specialty Start Date End Date Uriah Davis MD PCP - General 01/17/19 07/12/21 documented as of this encounter
--- OUTSIDE RECORDS SUMMARY | 2022-02-07 01:32 | XMS_ITS | Encounter Summary ---
:1955 Author Organization [facility] Address [address] [place] [address] Care Team Providers Name Role Phone Uriah Davis MD Primary Care Provider Shelton Smith MD Unavailable [phone] Tho Genao Primary Care Provider Encounter Details Date Type Department Care Team Description 02/04/2020 Lab Requisition [facility] Outr Resulting Lab, Pathology & Laboratory Provider [facility] [address] [id number] Social History Tobacco Use Types Packs/Day Years [...] 09/13/2022 Office Visit Cardiology Shelton Smith MD [address] [place] [address] [place] [address] (Wo rk) documented as of this encounter Procedures Procedure Name Priority Date/Time Associated Comments Diagnosis PSA TOTAL, Routine 02/04/2020 7:23 EDT Results for this DIAGNOSTIC procedure are i n the results section. documented in this encounter Results PSA TOTAL, DIAGNOSTIC (02/04/2020 7:23 EDT) Pathologist Sig nature PSA 1.3 0.0 - 4.5 ng/mL [facility] Specimen Blood - Venous blood (substance) Narrative [facility] - 02/05/2020 9:20 EDT NOTE: Serum PSA concentration should not be in terpreted as absolute evidence for the presence or absence of malignant disease. Assayed on Siemens ADVIA [employer]aur XPT usi ng chemiluminescent technology.??Values obtained by using different assay methods cannot be used interchangeably. Performing Organization Address City/State/[facility] Code Phon e Number [facility] [address] [place] [address] SERVICES documented in this encounter Visit Diagnoses Not on filedocumented in this encounter Care Teams Cotton Expert Relationship Specialty Start Date End Date Uriah Davis MD PCP - General 01/17/19 07/12/21 Tho Genao PCP - General Family Medicine [facility] 07/13/[address] [address] Shelton Smith, Cardiovascular Disease 1 [address] [place] [address] [place] [address] documented as of this encounter
--- OUTSIDE RECORDS SUMMARY | 2022-02-07 01:32 | XMS_ITS | Encounter Summary ---
:1955 Author Organization [facility] Address [address] [place] [address] Care Team Providers Name Role Phone Uriah Davis MD Primary Care Provider Shelton Smith MD Unavailable [phone] Tho Genao Primary Care Provider Encounter Details Date Type Department Care Team Description 02/03/2021 Lab Requisition [facility] Outr Resulting Lab, Pathology & Laboratory Provider [facility] [address] [phone] Social History Tobacco Use Types Packs/Day Years [...] Office Visit Cardiology Shelton Smith MD [address] [place] [address] (Wo rk) documented as of this encounter Procedures Procedure Name Priority Date/Time Associated Comments Diagnosis PSA TOTAL, Routine 02/03/2021 7:07 EDT Results for this DIAGNOSTIC procedure are i n the results section. documented in this encounter Results PSA TOTAL, DIAGNOSTIC (02/03/2021 7:07 EDT) Pathologist Sig nature PSA 1.5 0.0 - 4.5 ng/mL [facility] Specimen Blood - Venous blood (substance) Narrative [facility] - 02/03/2021 22:02 EDT NOTE: Serum PSA concentration should not be in terpreted as absolute evidence for the presence or absence of malignant disease. Assayed on Siemens ADVIA [employer] Labaur XPT usi ng chemiluminescent technology.??Values obtained by using different assay methods cannot be used interchangeably. Performing Organization Address City/State/ZIP Code Phon e Number [facility] [address] [place] [address] SERVICES documented in this encounter Visit Diagnoses Not on filedocumented in this encounter Care Teams Electrical Panel Builder Relationship Specialty Start Date End Date Uriah Davis MD PCP - General 01/17/19 07/12/21 Tho Genao PCP - General Family Medicine - [facility] 07/13/[address] [phone] Shelton Smith, Cardiovascular Disease 1 [address] [facility] [address] [place] [address] documented as of this encounter
--- OUTSIDE RECORDS SUMMARY | 2022-02-07 01:32 | XMS_ITS | Encounter Summary ---
:1955 Author Organization [facility] Address [address] [place] [address] Care Team Providers Name Role Phone Uriah Davis MD Primary Care Provider Shelton Smith MD Unavailable [phone] Tho Genao Primary Care Provider Encounter Details Date Type Department Care Team Description 09/21/2020 Results Only Imaging [facility] - Sasha Pantoja, [facility] Cardiology Clin ic FEEDLOT MANAGER [address] [place] [address] [address] [place] [address] (Wo rk) Social History Tobacco [...] Office Visit Cardiology Shelton Smith MD [address] [place] [address] [address] (Wo rk) documented as of this encounter Procedures Procedure Name Priority Date/Time Associated Diagnosis Comme nts HOLTER MONITOR 09/21/2020 9:56 EST Result s for this procedure are i n the results section . documented in this encounter Results HOLTER MONITOR (09/21/2020 9:56 EST) Specimen Narrative [facility] - 9:56 EST ? CV ? Test Date: ?2020-09-21 09:56:00 Pat Name: ? BRAULIO GARCIA ?Department: ?Room: ? Gender: ? M ?Vascular Specialists: ?? TASHIA ALVAREZ: ?1955 ? Requested By: Order Number: ?Reading : ?? Shelton Smith MD ? Interpretive Statements Monitoring started at 9:56 AM and contin ued for 47 hr 59 min. FINDINGS: 1. Baseline Sinus Rhythm with BBB: The a verage heart rate was 75 BPM. The minimum heart rate was 60 BPM, occurring at 2:37:36 AM D2. The maximum heart rate was 152 BPM, occurring at 5:42:23 A M D1. 2. Rare PVC, 0.4%: Ventricular ectopic a ctivity consisted of 850 beats, of which, 791 were in single PVCs, 59 were single VEs. 3. Occ. PAC, 1.4%, few atrial runs: Supr aventricular ectopic activity consisted of 2962 beats, of which, 61 we re in 11 runs, 48 were in atrial couplets, 149 were late beats, 2019 were single PA Cs, 8 were in bigeminy, 677 were in trigeminy. ??The longest supraventricula r run occurred at 5:30:33 PM D1 consisting of 19 beats, with maximum hea rt rate of 141 BPM. The fastest supraventricular [...] 79/min; CHEST TIGHTNESS x1 with SR, 75/min. Electronically Signed On 09-24-2020 23:05: 40 EST by Shelton Smith MD [email or web address] Procedure Note Shelton Smith MD - 09/24/2020 [facility] Test Date: 2020-09-21 09:56:00 Pat Name: BRAULIO GARCIA Department: Room: Gender: Vascular Specialists: TASHIA Chaidez : 1955 Requested By: Order Number: Reading MD: Shelton mayen MD Interpretive Statements Monitoring started at 9:56 AM and contin ued for 47 hr 59 min. FINDINGS: 1. Baseline Sinus Rhythm with BBB: The a verage heart rate was 75 BPM. The minimum heart rate was 60 BPM, occurring at 2:37:36 AM D2. The maximum heart rate was 152 BPM, occurring at 5:42:23 A M D1. 2. Rare PVC, 0.4%: Ventricular ectopic a ctivity consisted of 850 beats, of which, 791 were in single PVCs, 59 were single VEs. 3. Occ. PAC, 1.4%, few atrial runs: Supr aventricular ectopic activity consisted of 2962 beats, of which, 61 we re in 11 runs, 48 were in atrial couplets, 149 were late beats, 2019 were single PA Cs, 8 were in bigeminy, 677 were in trigeminy. The longest supraventricular run occurred at 5:30:33 PM D1 consisting of 19 beats, with maximum hea rt rate of 141 BPM. The fastest supraventricular run occurred at 5:18:00 AM D1, consisting of 3 beats, with maximum heart rate of 169 BPM. 4. No significant pauses: The longest R- R interval was 1.5 seconds occurring at 7:05:56 PM D2. 5. Symptoms: LIGHTHEADED x1 with SR, 79/min; DIZZY x1 with SR, 82/min; CHEST PAIN x1 with SR, 85/min & PAC; HEADACHE x1 with SR, 79/min; CHEST TIGHTNESS x1 with SR, 75/min. Electronically Signed On 09-24-2020 23:05: 40 EST by Shelton Smith MD [email or web address] Performing Organization Address City/State/ZIP Code Phon e Number [facility] [address] [place] [address] documented in this encounter Visit Diagnoses Not on filedocumented in this encounter Care Teams Resp Therapist Relationship Specialty Start Date End Date Uriah Davis MD PCP - General 01/17/19 07/12/21 Tho Genao PCP - General Family Medicine [facility] 07/13/[address] [place] [phone] Shelton Smith, Cardiovascular Disease [address] [place] [address] [address] [place] [address] documented as of this encounter
--- OUTSIDE RECORDS SUMMARY | 2022-02-07 01:32 | XMS_ITS | Encounter Summary ---
:1955 Author Organization [facility] Address [address] [place] [address] Care Team Providers Name Role Phone Uriah Davis MD Primary Care Provider Reason for Referral Cardiology (Routine) - Specialty Report Received Specialty Diagnoses / Procedures Referred By Contact Refer red To Contact Diagnoses Ascending aorta dilatation (HCC-CMS) ([facility]) Shelton Smith MD Procedures TRANSTHORACIC ECHO (TTE) COMPLETE [address] [facility] [address] [place] [address] Referral ID Status Reason Start Date Expiration Date Visits V isits Requested Authorized [id number] Specialty 06/26/2020 1 1 Report Received Reason for Visit Reason Comments Atrial Fibrillation PAF 6 mos f/u Fatigue Encounter Details Date Type Department Care Team Description 06/26/2020 Office Visit [facility] - Shelton Smith igue, unspecified type (Primary Dx); [facility] Cardiology MD Lb Ascending aorta dilatation (HCC-CMS); Clinic 130 [facility] Status post catheter ablation of atrial fibrillation; [address] [facility] [address] Thoracic aortic aneurysm without rupture ([facility]-CMS); [place] [address] [place] PAF (paroxysmal atrial fibri llation) ([facility]-CMS); [phone] Essential (primary) hypertension Social History Tobacco Use Types Packs/Day Years [...] Sign Reading Time Taken Comments Blood Pressure 100/62 06/26/2020812 EST Pulse 72 06/26/2020812 EST Temperature - - Respiratory Rate - - Oxygen Saturation 99% 06/26/2020812 EST Inhaled Oxygen Concentration - - Weight 68.3 kg (150 lb 9.6 oz) 06/26/2020812 EST Height 177.8 cm (5' 10) 06/26/2020812 EST Body Mass Index 21.61 06/26/2020812 EST documented in this encounter Functional Status [...] encounter Progress Notes Shelton Smith MD - 06/26/2020 0815 EST [facility] Cardiology Clinic Visit Subjective: Chief Complaint(s): Atrial Fibrillation (PAF 6 mos f/u ) and Fatigue HPI: 64-year-old man with history of paroxysmal atrial fibrillation since 2006, status post 4 AF ablationprocedures [id number], intolerance to multiple antiarrhythmic medications, 2 syncopal episodes attributed to vasovagal spells, hypercoagulable state of unclear etiology and aortic root dilatation. 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 This documented [...] office with his spouse for routine follow-up. He reports that he is overall doing quite well. However he reports a few little glitches recently. He reports feeling more tired over the last month. He also had an episode of atrial fibrillation yesterday that lasted from 3:30 in the afternoon until 4:30 in the morning, which had not happened since December. He denies CP, SOB, syncope, orthopnea, PND, [...] vein isolation 08/2008, 10/2010, 05/2011, 10/2012, Dr. Hendricks,[facility] Initiation of antiarrhythmic therapy with dofetilide 08/2010, medication discontinued due to side effects Negative tilt table test at [facility] 06/2013, Reproduction of lightheadedness with mental fogginess, weakness and near syncope near the end of the tilt study, on Isuprel 5 mcg/minute IV, with a blood pressure juan manuel of 107/66 at that time and a heart rate of 112. 2 syncopal episodes in 2012 with head injury, attributed to vasovagal spells Hypercoagulable state of unclear etiology, negative workup at [facility] hematology 2010 First ablation procedure complicated by [...] patient have barriers to learning? No. 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 Allergies flecainide: hallucinations amiodarone Tikosyn atenolol fresh fruit: anaphylaxis: Allergy I have reviewed current problem list and current medications. ROS: A 10-system ROS was performed, pertinent items as mentioned in HPI, otherwise negative. Objective: Examination: Home Vitals: BP 100/62 Pulse 72 Ht 177.8 cm (70) Wt 68.3 kg (150 lb 9.6 oz) SpO2 99% BMI 21.61 kg/m?? Pertinent exam findings: speaking in full sentences, [...] HGBA1C 5.4 08/26/2010 Assessment & Plan: 1. Fatigue, unspecified type COMPLETE BLOOD COUNT AND DIFFERENTIAL COMPREHENSIVE METABOLIC PANEL (CMP) COMPLETE BLOOD COUNT WITH DIFFERENTIAL (AUTO) COMPREHENSIVE METABOLIC PANEL (CMP) 2. Ascending aorta dilatation (HCC-CMS) TRANSTHORACIC ECHO (TTE) COMPLETE 3. Status post catheter ablation of atrial fibrillation 4. Thoracic aortic aneurysm without rupture (HCC-CMS) 5. PAF (paroxysmal atrial fibrillation) (HCC-CMS) 6. Essential (primary) hypertension 64-year-old man with history of paroxysmal atrial fibrillation since 2006, status post 4 AF ablationprocedures [id number], intolerance to multiple antiarrhythmic medications, 2 syncopal episodes of unclear etiology and aortic root dilatation. Had dizzy spells, palpitations and shortness of In 2017, int erfering with his daily work. Referral to an autonomous nervous water and sewer systems supervisor did not yield new diagnoses. 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 Continues overall doing very well with reasonable suppression of arrhyhmia on low-dose diltiazem. Now with more fatigue and mild increasein subjective AF occurrence. Will start evaluation with labs. He is also due for a follow up echo regarding his dilated ascending aorta. Some of his fatigue could also be related to iatrogenic hypotension. Asked him to monitor blood pressures at home to see if we need to reduce his lisinopril medication. Continue current meds for now.Total [id number] time: 25 minutes, >50% spent counseling on above issues. Treatment 1. Essential hypertension Continue Cardizem tablet, 30 mg, 1 tab(s), orally, two times a day Continue Lisinopril 30mg/d 2. Paroxysmal atrial fibrillation Continue Xarelto 20mg/d Shelton Smith MD documented in this encounter Plan of Treatment Upcoming Encounters Date Type Specialty Care Team Description 09/13/2022 Office Visit Cardiology Shelton Smith MD [address] [place] [phone] (Wo rk) documented as of this encounter Procedures Procedure Name Priority Date/Time Associated Comments Diagnosis COMPLETE BLOOD COUNT Routine 06/26/2020 9:27 Fatigue, Resu lts for this WITH DIFFERENTIAL EST unspecified type proced ure are in (AUTO) the results section. COMPREHENSIVE Routine 06/26/2020 9:27 Fatigue, Results for this METABOLIC PANEL (CMP) EST unspecified type pr ocedure are in the results section. documented in this encounter Results (ABNORMAL) COMPREHENSIVE METABOLIC PANEL (CMP) (06/26/2020 9:27 EST) ALBUMIN - [facility] 4.1 3.4 - 4.9 [facility] g/dL [facility] ALKALINE 86 38 - 126 U/L [facility] PHOSPHATASE - [facility] BILIRUBIN TOTAL 0.7 0.2 - 1.3 [facility] mg/dL [facility] BUN - [facility] 30 (H) 10 - 26 mg/dL [facility] CALCIUM - [facility] 9.8 8.5 - 10.5 [facility] mg/dL [facility] Chloride 102 96 - 110 [facility] mmol/L [facility] CO2 Total 28 21 - 32 mEq/L [facility] CREATININE 1.09 0.66 - 1.25 [facility] mg/dL [facility] eGFR >60 [facility] Comment: [facility] Chronic renal impairment is defined as GFR <60 Multiply result by 1.210 for patients . Anion Gap 8 0 - 18 [facility] GLUCOSE - [facility] 50 (L) 70 - 100 [facility] mg/dL [facility] Potassium 4.8 3.5 - 5.0 [facility] mEq/L [facility] Sodium 138 136 - 145 [facility] mEq/L [facility] TOTAL PROTEIN - 6.7 6.2 - 8.2 [facility] gm/dL [facility] SGOT/AST - [facility] 34 17 - 59 U/L [facility] SGPT/ALT - [facility] 24 0 - 50 U/L [facility] Specimen Narrative [facility] - 020 11:02 EST Does PT Have a Latex Allergy? NO Performing Organization Address City/State/ZIP Code Phon e Number [facility] [address] [place] [address] (ABNORMAL) COMPLETE BLOOD COUNT WITH DIFFERENTIAL (AUTO) (06/26/2020 9:27 EST) Pathologist Sig nature ABSOLUTE NEUTROPHIL 4.2 2.2 - 8.85 [facility] COUN - [facility] 10e3/uL [facility] BASO # - [facility] 0.04 0.01 - 0.11 [facility] 10e/uL [facility] BASO % - [facility] 1 0 - 2 % [facility] EOS # - [facility] 0.11 0.03 - 0.61 [facility] 10e3/ul [facility] EOS % - [facility] 2 0 - 5 % [facility] GRAN % - [facility] 65.8 40 - 80 % [facility] HEMATOCRIT - [facility] 44.0 39.5 - 50.2 % [facility] HEMOGLOBIN - [facility] 14.3 13.8 - 17.3 [facility] g/dl [facility] IG# - [facility] 0.02 0 - 0.7 10e3/uL [facility] IG% - [facility] 0.3 0 - 0.9 % [facility] LYMPH # - [facility] 1.5 1.09 - 3.3 [facility] 10e3/ul [facility] LYMPH% - [facility] 22.7 20 - 40 % [facility] MEAN CORPUSCULAR HGB 29.7 27.6 - 33.0 pg [facility] ME D - [facility] MEAN CORPUSCULAR HGB 32.5 (L) 32.8 - 36.4 [facility] CONC [facility] g/dL [facility]ENTER [facility] MEAN CELL VOLUME - 91.5 81 - 95 fl [facility] MONO # - [facility] 0.6 0.1 - 0.8 [facility] 10e3/uL [facility] MONO% - [facility] 8.9 0 - 12 % [facility] PLATELET COUNT 298 141 - 377 [facility] 10e3/ul [facility] RED BLOOD COUNT - 4.81 4.36 - 5.78 [facility] 10e3/ul [facility] RED CELL DISTRI WIDTH 12.2 <14.2 % [facility] CENTER [facility] WHITE BLOOD COUNT - 6.4 4.0 - 10.4 [facility] 10e3/ul [facility] Specimen Narrative [facility] - 020 10:42 EST Does PT Have a Latex Allergy? NO Performing Organization Address City/State/ZIP Code Phon e Number [facility] [address] [place] [address] documented in this encounter Visit Diagnoses Diagnosis Fatigue, unspecified type - Primary Ascending aorta dilatation (HCC-CMS) (HC C) Thoracic aortic ectasia Status post catheter ablation of atrial fibrillation Thoracic aortic aneurysm without rupture (HCC-CMS) (HCC) Thoracic aneurysm without mention of rup ture PAF (paroxysmal atrial fibrillation) (HC C-CMS) (HCC) Atrial fibrillation Essential (primary) hypertension Unspecified essential hypertension documented in this encounter Orders Echocardiography Count Last Ordered Date First Ordered Date TRANSTHORACIC ECHO (TTE) COMPLETE 1 06/26/2020 documented in this encounter Care Teams Marketing Lead Relationship Specialty Start Date End Date Uriah Davis MD PCP - General 01/17/19 07/12/21 documented as of this encounter
--- OUTSIDE RECORDS SUMMARY | 2022-02-07 01:32 | XMS_ITS | Encounter Summary ---
:[address] [facility] Address [address] [place] [address] Care Team Providers Name Role Phone Uriah Davis MD Primary Care Provider Reason for Visit Reason Onset Date Comments Medications Refill 12/19/2019 Encounter Details Date Type Department Care Team Description 12/19/2019 Telephone [facility] - Shelton Smith Med ications Refill [facility] Cardiology Clin ic MD Lb [address] [facility] [address] [place] [address] [address] [place], [place] [phone] (Wo rk) Social History Tobacco Use Types [...] 1 Tab by mouth 90 Tab 3 01/29/2020 mg tablet tablet daily with dinner. documented in this encounter Miscellaneous Notes Telephone Encounter - Sophia Quintanilla RN - 12/19/2019 1039 EDT Patient had recent F/U with on 11/26/2019. RF sent to pharmacy for 90 day supply per patient request. elephone Encounter - Kaye Boo - 12/19/2019 0933 EDT Pt called and needs a refill of his Xarelto called in for a 90 day supply. [facility] [place] documented in this encounter Plan of Treatment Upcoming Encounters Date Type Specialty Care Team Description 09/13/2022 Office Visit Cardiology Shelton Smith MD [address] [place] [phone] (Wo rk) documented as of this encounter Visit Diagnoses Not on filedocumented in this encounter Discontinued Medications Medication Sig Discontinue Reason Start Date End Date rivaroxaban (XARELTO) 20 Take 1 Tab by mouth Reorder 0 12/19/2019 mg tablet tablet daily with dinner. documented as of this encounter Care Teams Scaffold Builder Relationship Specialty Start Date End Date Uriah Davis MD PCP - General 01/17/19 07/12/21 documented as of this encounter
--- OUTSIDE RECORDS SUMMARY | 2022-02-07 01:32 | XMS_ITS | Encounter Summary ---
:1955 Author Organization [facility] Address [address] [place] [address] Care Team Providers Name Role Phone Uriah Davis MD Primary Care Provider Reason for Visit Reason Comments Other wound check Encounter Details Date Type Department Care Team Description 03/02/2020 Nurse Only [facility] - Nurse, [facility] [place] er for post [facility] Cardiology Clinic surgica l wound check Clinic (Primary Dx) [address] [place] [address] Social History Tobacco Use Types Packs/Day Years [...] Sign Reading Time Taken Comments Blood Pressure - - Pulse 74 03/02/2020 0848 EDT Temperature 36.5 ??C (97.7 ??F) 03/02/2020 0848 EDT Respiratory Rate 16 03/02/2020 0848 EDT Oxygen Saturation 98% 03/02/2020 0848 EDT Inhaled Oxygen Concentration - - Weight - - Height - - Body Mass Index - - documented in this encounter Functional Status Functional [...] documented as of this encounter Progress Notes Keaton De La Torre RN - 03/02/2020 0845 EDT Patient to office for wound check s/p procedure. Wound edges are approximated well. No redness, swelling or drainage noted. Wound care reviewed with patient and pt verbalizes understanding. Will f/u for signs/sxs of infection: redness, pain, swelling,drainage. documented in this encounter Plan of Treatment Upcoming Encounters Date Type Specialty Care Team Description 09/13/2022 Office Visit Cardiology Shelton Smith MD [address] [place] [phone] (Wo rk) documented as of this encounter Visit Diagnoses Diagnosis Encounter for post surgical wound check - Primary documented in this encounter Care Teams Decorative Cutting Machine Tender Relationship Specialty Start Date End Date Uriah Davis MD PCP - General 01/17/19 07/12/21 documented as of this encounter
--- OUTSIDE RECORDS SUMMARY | 2022-02-07 01:32 | XMS_ITS | Encounter Summary ---
:[address] [facility] Address [address] [place] [address] Care Team Providers Name Role Phone Uriah Davis MD Primary Care Provider Reason for Visit Reason Comments Follow-up Pacemaker/Device Check Encounter Details Date Type Department Care Team Description 01/09/2020 Telemedicine [facility] - Maryellen Pantoja PA F (paroxysmal atrial [facility] Cardiology Clin ic TOSSER fibrillation) 130 [facility] 130 [facility] ([facility] (Primary Dx) [place] [address] [address] [place] [phone] Social History Tobacco Use Types [...] documented as of this encounter Progress Notes Kit, Maryellen, JACQUELINE - 01/09/2020 0900 EDT [facility] Telephone Visit Verbal consent: The concept of [...] or auxiliary staff: yes. Subjective: Chief Complaint(s): No chief complaint on file. HPI: 64-year-old gentleman with history of PAF (diagnosed 2006) s/p 4 AF ablations (last in 2012), intolerant to multiple antiarrhythmic drugs, hx syncope s/p Reveal implant who I called in follow up after recent remote device interrogation showed a prolonged episode of AF. Since having his device implanted in 08/2016 he has now had 3 episodes of AF. In the past, episodes seemed to be in response to dehydration and an acute illness. More recently on 12/30/2019 he had an episode that lasted > 17 hrs with average ventriclar rate in the 140's. He recalls this specific episode because he had gone out on a several mile long bike ride and did not feel able to bike home. He had to stop and rest for awhile on the side of the road. I have reviewed patient's tobacco history: reports that he has never smoked. He has never used smokeless tobacco. I have reviewed current problem list and current medications. ROS: ROS 10 point ROS obtained with pertinent positives noted in HPI, otherwise negative. Objective: Examination: Home Vitals: There were no vitals taken for this visit. Pertinent exam findings: speaking in full sentences, no audible wheeze and mood and affect appropriate Data reviewed with patient: Reviewed and/or ordered active problem list, medication list, allergies,social history, notes from last encounter, lab results tests Assessment & Plan: 1. PAF (paroxysmal atrial fibrillation) ([facility]) S/p 4 attempts at AF ablation, most recently in 2012. Previously intolerant to multiple anti-arrhythmics. In the past year he has had 3 episodes of PAF, 09/2018, 03/2019 and 12/2019, all of which were > 12 hrs in duration and with elevated average V rates. Is currently anti-coagulated with Xarelto andis tolerating well. No signs of bleeding/bruising. Advised Braulio to take an extra diltiazem when he experiences elevated HR/pulse irregularity. May repeat x1 if ineffective. He also had multiple symptomatic episodes on recent Loop recorder interrogation that corresponds to occasional PVC's. ILR has reached SUMMER COUNSELOR, so will coordinate removal. Patient initiated phone contact with the office: yes. Patient is an established patient (parent, guardian) yes. E/M provided within previous 7 days for same medical assessment: no Anticipate E/M service within 24hrs or next available urgent appointment no. This visit was conducted by telephone. I spent a total of 26 minutes in discussion with the patient as described in the progress note. documented in this encounter Plan of Treatment Upcoming Encounters Date Type Specialty Care Team Description 09/13/2022 Office Visit Cardiology Shelton Smith MD [address] [place] [address] [address] [place] [phone] (Wo rk) documented as of this encounter Visit Diagnoses Diagnosis PAF (paroxysmal atrial fibrillation) ( C-CMS) ([facility]) - Primary Atrial fibrillation documented in this encounter Care Teams Bandoleer Straightener Stamper Relationship Specialty Start Date End Date Uriah Davis MD PCP - General 01/17/19 07/12/21 documented as of this encounter
--- OUTSIDE RECORDS SUMMARY | 2022-02-07 01:33 | XMS_ITS | Encounter Summary ---
:1955 Author Organization [facility] Address [address] [place] [address] Care Team Providers Name Role Phone Danish Cao DO Primary Care Provider Encounter Details Date Type Department Care Team Description 12/20/2012 Anti-coag visit [facility] Yehuda Manriquez MD Cardiology - [place] [address] [place] [address] (Wo rk) Social History Tobacco Use [...] documented as of this encounter Functional Status Cognitive Status Response Date of Assessment Because of a physical, mental, or emotional condition, do Ye s 10/09/2012 you have serious difficulty concentrating, remembering, or making decisions? (5 years old or older) documented as of this encounter Progress Notes Keaton Manriquez MD - 12/22/2012 1113 EDT Keaton Manriquez MD Valerie matos RN - 12/21/2012 1541 EDT Instructions confirmed; Protime correlates w/ INR Gerald Sanchez - 12/20/2012 1323 EDT Pt's INR today is 2.1. Reviewed encounter with Valerie Pitt RN who advised pt should take the following dosing plan: take 4 mg daily and test again in two weeks, on 01/03. Contacted pt by email and reviewed result and instructions. Pt replied to verify receipt and understanding of same. Encounter routed to Valerie Pitt for sign off. documented in this encounter Plan of Treatment Upcoming Encounters Date Type Specialty Care Team Description 09/13/2022 Office Visit Cardiology Shelton Smith MD [address] [place] [address] [address] [place], [place] [phone] (Wo rk) documented as of this encounter Procedures Procedure Name Priority Date/Time Associated Diagnosis Comme nts PROTIME Routine 12/20/2012 7:26 EDT Results for this procedure are i n the results section . documented in this encounter Results PROTIME (12/20/2012 7:26 EDT) Pathologist Sig nature Protime, External [facility] INR, External 2.1 [facility] Specimen Blood specimen (specimen) Performing Organization Address City/State/ZIP Code Phon e Number [facility] documented in this encounter Visit Diagnoses Not on filedocumented in this encounter Care Teams Long Term Care Social Worker Relationship Specialty Start Date End Date Danish Cao, PCP - General 11/26/08 06/26/[address] [place] [address] documented as of this encounter
--- OUTSIDE RECORDS SUMMARY | 2022-02-07 01:33 | XMS_ITS | Encounter Summary ---
:1955 Author Organization [facility] Address [address] [place] [address] Care Team Providers Name Role Phone Renee Corcoran VICE INVESTIGATOR Primary Care Provider Reason for Visit Reason Onset Date Comments Appointment Related 04/03/2017 Encounter Details Date Type Department Care Team Description 04/03/2017 Telephone [facility] Golden Borrego, Tye pointment Related Cardiothoracic Surgery - [id number] [place] [address] [phone] (Wo rk) Social History Tobacco Use Types [...] this encounter Miscellaneous Notes Telephone Encounter - Celine Freitas - 05/31/2017 1648 EST I have scheduled the patient for a CTA Chest on 07/07/17 at 8:30 with a check in of 8:00. He will also see Dr. Bliss at 10:00. Letter sent. elephone Encounter - Celine Freitas - 04/05/2017 0908 EDT I called the patient back and he would like this to be 2nd or 3rd week of . And he was good withnew provider. elephone Encounter - Olamide Saenz - 04/04/[address] Borrego, patient to follow-up with Dr. Bliss. Routing to WALI Quigley to contact patient and advise that he will see Dr. Bliss in June and we will contact patient in May to schedule his CTA chest. elephone Encounter - Olamide Saenz - 04/04/2017 1633 EDT Patient on reminder list for June, for visit and repeat CTA chest. I will review with Dr. Borrego to determine who patient will be re-assigned to. elephone Encounter - Julianna Fabian - 04/03/2017 0815 EDT Patient called and requested to set up follow up appt and CT scan with a new provider now that Dr. Borrego is leaving. I explained provider's temporary administrative assistant it working closely with Dr. Borrego to make sure his follow up patients are assigned to specific providers for follow up and I don't have the list. Patient said that is fine, looking to have CT and follow up appt scheduled same day in June--07/05 are not good days. Confirmed hm # as call back number. documented in this encounter Plan of Treatment Upcoming Encounters Date Type Specialty Care Team Description 09/13/2022 Office Visit Cardiology Shelton Smith MD [address] [place] [address] [phone] (Wo rk) documented as of this encounter Visit Diagnoses Not on filedocumented in this encounter Care Teams Electrical Cad Technician Relationship Specialty Start Date End Date Renee Corcoran NP PCP - General 06/27/16 01/16/19 documented as of this encounter
--- OUTSIDE RECORDS SUMMARY | 2022-02-07 01:33 | XMS_ITS | Encounter Summary ---
:[address] [facility] Address [address] [place] [address] Care Team Providers Name Role Phone Danish Cao DO Primary Care Provider Encounter Details Date Type Department Care Team Description 10/08/2012 [facility] Rex Hendricks ( [facility] Encounter Cardiovascular Unit MD Delphine (Primary Dx) [address] [facility] [address] [place] [address] [address] [phone] [facility] [address] [place] [phone] Social History Tobacco Use Types Packs/Day Years [...] Sign Reading Time Taken Comments Blood Pressure 123/96 10/08/2012 1128 EDT Pulse - - Temperature - - Respiratory Rate 18 10/08/2012 1128 EDT Oxygen Saturation 97% 10/08/2012 1128 EDT Inhaled Oxygen Concentration - - Weight - - Height - - Body Mass Index - - documented in this encounter Functional Status Cognitive Status Response Date of Assessment Because of a physical, mental, or emotional condition, do Ye ashleigh 06/14/2011 you have serious difficulty concentrating, remembering, or making decisions? (5 years old or older) documented as of this encounter Discharge Instructions Lennie Palomino RN - 10/08/2012 Post Transesophageal Echocardiography Information / Instructions Cardiac Ultrasound Laboratory Per Valerie Pitt RN in [facility] take Coumadin 5mg tonight. 1. You have had a Transesophageal Echocardiogram (ALEKSANDAR) performed by Dr. Jones. 2. A complete report of the finding will be faxed to your physician(s). 3. After the exam you may have a sore throat for a day or so. Drink cool fluids. You may wish to take throat lozenges. 4. There may be slight inflammation at the site where your intravenous line was started. If this occurs, you may apply a warm compress for a brief period of time. The inflammation usually disappears within a day or so. 5. You may drink clear liquids as soon as your throat is no longer numb and your gag reflex returns.If you tolerate the clear liquids, you can advance your diet as tolerated. 6. In accordance to hospital policy after receiving sedation, you should not drive or operate heavy machinery for 24 hours. 7. If you have any questions or concerns, contact above physician or the commercial loan officer nursing consultant at [phone]. 9. If you have any serious complications, go immediately to your local immediate health care facility. 10. Additional information / instructions: Do not eat anything solid after midnight tonight -you mayhave clear liquids only until 3:00 AM documented in this encounter Medications at Time of Discharge Medication Sig Dispensed Refills Start Date End Date ascorbic acid (VITAMIN Take 500 mg by mouth 0 C) 500 mg tablet daily. Multivitamins with Take 1 Tab by mouth 0 Minerals Tab daily. metoprolol (LOPRESSOR) Take 25 mg by mouth 2 0 04/08/2013 25 mg tablet times daily. pantoprazole (PROTONIX) Take 1 Tab by mouth 30 Tab 0 10/22/2012 40 mg tablet daily. warfarin (COUMADIN) 2 Take 2.5 Tabs by mouth 75 Tab 5 10/10/2012 mg tablet daily. warfarin (COUMADIN) 4 Take 1 Tab by mouth at bedti pa. Take as directed - 5 mg on 10/10 & 10/12, 4 mg on 10/11, 10/13, & 10/14 30 Tab 0 10/11/19 13 04/08/2013 mg tabletIndications: Then as directed by Valerie Indications: ATRIAL FIBRILLATION atrial fibrillation documented as of this encounter Discharge Disposition Disposition Code Departure Means Destination Home or Self Care documented in this encounter Progress Notes Lennie Desouza RN - 10/08/2012 1110 EDT Braulio Garcia arrived to CVU #2 at 1105 via stretcher s/p post ALEKSANDAR with rails up, bed position down,and locked. Call tolentino within patient reach. Alert and oriented x3. IV infusing with no sign of infiltration. Patient denies pain at present. Patient remains NPO - at bedside. 1125 Patient tolerated swallow test without dysphagia. Taking po toast & Fluids Well.1135 All discharge instructions reviewed with Braulio Garcia & verbally & in writing. Patient verbalizes understanding of all discharge instructions & all questions were answered. I spoke with Valerie iPtt of [facility] to inform patient of Coumadin dose for tonight is 5 mg. Patient vocalizes understanding.1140Williabutch Garcia tolerated orthostatic vital signs well ,without vertigo. Patient denies need of bathroom . Patient discharged to home with via wheelchair & patient denies pain. Annmarie Galeas MD - 10/08/2012 1040 EDT Transesophageal Echocardiogram Brief Post-Procedure Note Date of Procedure: 10/08/2012 Attending: Nacho Knapp MD Fellow: Annmarie Sandra MD Pre-Op Diagnosis: AF Post-Op Diagnosis: AF Procedure: Transesophageal echocardiogram. Findings: no DANIELA thrombbus, normal EF, LVH Anesthesia Type: A moderate level of anesthesia/conscious sedation was used. Estimated Blood Loss: Unless otherwise noted, there was no blood loss, specimens removed, cultures obtained, or drains retained. Complications: None Disposition and Condition: The patient was sent back to the original unit in Good condition. ANNMARIE HUNT MD 10/08/2012 10:41 Sophia Sanchez RN - 10/08/2012 0906 EDT Pt arrives to CVU ambulatory for ALEKSANDAR prep.Pt verifies NPO status and ID.IV started, labs drawn and sent, prep and assessment completed, pt and family oriented to unit and course of events for the day. Bed in low position, call tolentino in reach, family at bedside. documented in this encounter H&P Notes Annmarie Hunt MD - 10/08/2012 1010 EDT Sedation for Procedure History & Physical Date: 10/08/2012 Time: 10:11 Location: echo lab Planned Procedure: Aleksandar Chief Complaint/Indications for Procedure: AF, planned for AF ablation History: 56 yo male with known AF, planned for Af balation. Previous Complication with Sedation and/or Anesthesia? No Allergies: Allergies Allergen Reactions ??? Other - See Comments Swelling of tongue Fresh fruit ??? Amiodarone Ineffective for A-Fib hallucinations ??? Atenolol Hallucinations and restlessness ??? Flecainide Other (See Comments) Hallucinations ??? Keflex (Cephalexin) Nausea Only Current Medications: Prescriptions prior to admission Medication Sig Dispense Refill ??? metoprolol (LOPRESSOR) 25 mg tablet Take 25 mg by mouth. ??? warfarin (COUMADIN) 2 mg tablet Take 2.5 Tabs by mouth daily. 75 Tab 5 ??? DISCONTD: ASPIRIN (ASPIR-81 ORAL) Take 81 mg by mouth. ??? Multivitamins with Minerals Tab Take 1 Tab by mouth daily. ??? ascorbic acid (VITAMIN C) 500 mg tablet Take 500 mg by mouth daily. Past Medical History: Past Medical History Diagnosis Date ??? AF (atrial fibrillation) had ablation 2 yrs ago ??? Cancer skin cancer on face and back Social History: Past Surgical History Procedure Date ??? Tonsillectomy childhood ??? Nasal septum surgery 2006 ??? Ablation of dysrhythmic focus History Substance Use Topics ??? Smoking status: Never Smoker ??? Smokeless tobacco: Never Used ??? Alcohol Use: Yes rare Family History: Family History Problem Relation Age of Onset ??? High Cholesterol Mother ??? Heart Disease Father ??? Heart Disease Brother ??? Cancer Maternal Grandfather ??? Heart Disease Paternal Grandmother Review of Systems as pertinent: palpitations Physical: Vital Signs: BP 159/106 Resp 10 SpO2 98% Heart Examination: Cardiac Regularity: Regular Respiratory Examination: Respiratory Pattern: Regular Breath Sounds Right: Clear Breath Sounds Left: Clear Additional physical exam related to the proposed procedure, patient activity, disease state and treatment as pertinent: Assessment: 56 yo male with known AF, planned for AF ablation. Previous complications with sedation or anesthesia?: No Airway Concerns: None Anesthesia Classification: ASA 2 Fasting Time: Time of last liquid intake: 1900 Date of Last Liquid Intake: 10/08/12 Time of last solid intake: 1800 Date of last solid intake: 10/07/12 Patient Appropriate Candidate for Planned Sedation?: Yes documented in this encounter Miscellaneous Notes Scanned Note-Null - GEOLOGICAL ENGINEER, SCAN 2 - 10/11/2012 1232 EDT canned Note- Null - GEOLOGICAL ENGINEER, SCAN 2 - 10/11/2012 1232 EDT canned Note- Null - GEOLOGICAL ENGINEER, SCAN 2 - 10/11/2012 1232 EDT documented in this encounter Plan of Treatment Upcoming Encounters Date Type Specialty Care Team Description 09/13/2022 Office Visit Cardiology Shelton Smith MD [address] [place] [address] [address] [place] [phone] (Wo rk) documented as of this encounter Procedures Procedure Name Priority Date/Time Associated Comments Diagnosis PTT STAT 10/08/2012 8:20 Results for this EDT procedure are i n the results section. PROTIME STAT 10/08/2012 8:20 Results for this EDT procedure are i n the results section. COMPLETE BLOOD COUNT STAT 10/08/2012 8:20 Resu lts for this EDT procedure are i n the results section. BUN STAT 10/08/2012 8:20 Results for this EDT procedure are i n the results section. CREATININE STAT 10/08/2012 8:20 Results for this EDT procedure are i n the results section. ELECTROLYTES STAT 10/08/2012 8:20 Results for this EDT procedure are i n the results section. documented in this encounter Results (ABNORMAL) PTT (10/08/2012 8:20 EDT) Pathologist Sig nature PTT 53 (H)Comment: 26 - 37 secs [facility] Therapeutic Heparin range: 65-100 seconds Specimen Blood specimen (specimen) Performing Organization Address City/[facility]/ZIP Code Phon e Number [facility] [address] [place] [address] SERVICES [facility] [address] [place] [address] (ABNORMAL) PROTIME (10/08/2012 8:20 EDT) Pro Time 34.9 (H) 9.5 - 13.1 [facility] secs I.N.R. 3.0 (H) 0.9 - 1.1 [facility] Comment: Ratio Moderate Intensity Coumadin INR = 2.0-3.0 Adjustments in anticoagulant therapy dose should be based upon the INR and NOT the Pro Time. Specimen Blood specimen (specimen) Performing Organization Address City/[facility]/ZIP Code Phon e Number [facility] [address] [place] [address] SERVICES [facility] [address] [place] [id number] HEMAGRAM (10/08/2012 8:20 EDT) Pathologist Sig nature WBC 7.43 4.0 - 10.4 K/cmm [facility] RBC 4.93 4.36 - 5.78 M/cmm [facility] Hemoglobin 14.8 13.8 - 17.3 gm/dl [facility] HCT 44.4 39.5 - 50.2 % [facility] MCV 90 81 - 95 fl [facility] MCH 30.0 27.6 - 33.0 pg [facility] MCHC 33.3 32.8 - 36.4 gm/dl [facility] PLT 285 141 - 320 K/cmm [facility] RDW-CV 12.3 11.8 - 14.1 % [facility] Specimen Blood specimen (specimen) Performing Organization Address [facility] Phon e Number [facility] [address] [place] [address] SERVICES [facility] [address] [place] [address] ELECTROLYTES (10/08/2012 8:20 EDT) Pathologist Sig nature Sodium 142 136 - 145 mEq/L [facility] Potassium 4.8 3.5 - 5.0 mEq/L [facility] Chloride 105 96 - 110 mEq/L [facility] CO2 27 24 - 32 mEq/L [facility] Specimen Blood specimen (specimen) Performing Organization Address [facility] Phon e Number [facility] [address] [place] [address] SERVICES [facility] [address] [place] [address] CREATININE (10/08/2012 8:20 EDT) Pathologist Sig nature Creatinine 0.81 0.66 - 1.25 mg/dl [facility] GFR, Calculated >60 >60 ml/min/1.73m2 [facility] Specimen Blood specimen (specimen) Performing Organization Address [facility] Phon e Number [facility] [address] [place] [address] SERVICES [facility] [address] [place] [address] BUN (10/08/2012 8:20 EDT) Pathologist Sig nature BUN 15 10 - 26 mg/dl [facility] Specimen Blood specimen (specimen) Performing Organization Address [facility] Phon e Number [facility] [address] [place] [address] SERVICES [facility] [address] [place] [address] documented in this encounter Visit Diagnoses Diagnosis A-fib (HCC-CMS) (HCC) - Primary Atrial fibrillation documented in this encounter Administered Medications Inactive Administered Medications - up to 3 most recent administrations Medication Order MAR Action Action Date Dose Rate Site fentanyl citrate (PF) 50 mcg/mL Given 10/08/2012 10:20 EDT 75 mc g injection 25-200 mcg 25-200 mcg, intravenous, ONCE PRN, 1 dose, Starting on Mon10/08/12 at 1006, Until Mon10/08/12 at 1020, Sedation, Routine, Intraprocedure midazolam (VERSED) injection 0.5-10 mg Given 10/08/2012 10:20 EDT 4 mg 0.5-10 mg, intravenous, ONCE PRN, 1 dose, Starting on Mon10/08/12 at 1006, Until Mon10/08/12 at 1020, Sedation, Routine, Intraprocedure sodium chloride 0.9 % (NS) infusion New Bag 10/08/2012 9:10 EDT 25 mL/hr 25 mL/hr at 25 mL/hr, 25 mL/hr, intravenous, CONTINUOUS, Starting on Mon10/08/12 at 0830, Until Mon10/08/12 at 1424, Routine, Preprocedure documented in this encounter Discontinued Medications Medication Sig Discontinue Reason Start Date End Date ASPIRIN (ASPIR-81 ORAL) Take 81 mg by mouth. Therapy completed 10/08/2012 documented as of this encounter Active and Recently Administered Medications Times are shown in EDT. Continuous Medication Order 10/06/2012 10/07/2012 10/08/2012 sodium chloride 0.9 % (NS) infusion (CANCELED) 0910 (New Bag - Provider: Sophia Da Silva RN) at 25 mL/hr, 25 mL/hr, intravenous, CONT INUOUS, Starting Mon10/08/12 at 0830, Until Mon10/08/12 at 1424 PRN Medication Order 10/06/2012 10/07/2012 10/08/2012 fentanyl citrate (PF) 50 mcg/mL injection 25-200 mcg (COMPLETED) 1020 (Given - Provider: Dayanna Triana, ROBBY) 25-200 mcg, intravenous, ONCE PRN, 1 dos e, Starting on Mon10/08/12 at 1006, Until Mon10/08/12 at 1020, Sedation, Routine, Intraprocedure midazolam (VERSED) injection 0.5-10 mg (COMPLETED) 1020 (Given - Provider: Dayanna Triana, ROBBY) 0.5-10 mg, intravenous, ONCE PRN, 1 dose , Starting on Mon10/08/12 at 1006, Until Mon10/08/12 at 1020, Sedation, Routine, Intraprocedure documented in this encounter Orders Medications Ordered That Might Not Have Count Last Ord ered Date First Ordered Date Been Administered flumazenil (ROMAZICON) injection 0.2 mg 1 10/09/19 13 lidocaine-EPINEPHrine 2 %-1:100,000 1 10/08/2012 injection 5-10 mL naloxone (NARCAN) injection 0.2-0.4 mg 1 3 sodium chloride 0.9 % (NS) infusion 1 10/08/2012 Lab Orders Without Results Count Last Ordered Date Fir st Ordered Date POCT GLUCOSE 1 10/08/2012 Nursing Count Last Ordered Date First Ordered Date INSERT PERIPHERAL IV 1 10/08/2012 MEASURE BLOOD PRESSURE 1 10/08/2012 Transfer Count Last Ordered Date First Ordered Date NOTIFY PPS OF DISCHARGE COMPLETE 1 10/08/2012 Discharge Count Last Ordered Date First Ordered Date DISCHARGE PATIENT 1 10/08/2012 documented in this encounter Care Teams Library Page Relationship Specialty Start Date End Date Danish Cao, PCP - General 11/26/08 06/26/16 [address] [id number] documented as of this encounter
--- OUTSIDE RECORDS SUMMARY | 2022-02-07 01:33 | XMS_ITS | Encounter Summary ---
:1955 Author Organization [facility] Address [address] [place] [address] Care Team Providers Name Role Phone Danish Cao DO Primary Care Provider Reason for Visit Reason Comments Atrial Fibrillation 6 month post ablation, had b een doing really well, had gotten back into training. Had one episode on December 14 but then did well until last Monday. He h ad to take the day off, the next day he was still not able to wor k. On Mon his left thumb was discolored (black and blue) and he thought it might be a blood clot. His customer service voice sent him to the ER, at that point the discoloration was almost bobo e. Cardiac Testing Dr. Smith put him a an ev ent monitor. Says he's been having events and has been tranmitt ing them. Encounter Details Date Type Department Care Team Description 04/08/2013 Office Visit [facility] Rex Hendricks ( [facility] Cardiology - Sayra Akers MD (Primary Dx) [address] [place], [place] [address] [place] [address], [facility] [address] [place] [address] (Wo rk) Social History Tobacco [...] Sign Reading Time Taken Comments Blood Pressure 140/104 04/08/2013 1127 EDT Pulse 77 04/08/2013 1127 EDT Temperature - - Respiratory Rate - - Oxygen Saturation 100% 04/08/2013 1127 EDT Inhaled Oxygen Concentration - - Weight 67.1 kg (148 lb) 04/08/2013 1127 EDT Height 177.8 cm (5' 10) 04/08/2013 1127 EDT Body Mass Index 21.24 04/08/2013 1127 EDT documented in this encounter Functional Status Cognitive Status Response Date of Assessment Because of a physical, mental, or emotional condition, do Ye s 10/09/2012 you have serious difficulty concentrating, remembering, or making decisions? (5 years old or older) documented as of this encounter Discharge Disposition Disposition Code Departure Means Destination Auto Discharge documented in this encounter Progress Notes RuthieRex nolasco MD - 04/08/2013 1149 EDT Subjective: Patient ID: Braulio Garcia is an 57 y.o. male. Chief Complaint Patient presents with ??? Atrial Fibrillation 6 month post ablation, had been doing really well, had gotten back into training. Had one episode on December 14 but then did well until last Monday. He had to take the day off, the next day he was stillnot able to work. On Mon his left thumb was discolored (black and blue) and he thought it might be ablood clot. His customer service voice sent him to the ER, at that point the discoloration was almost gone. ??? Cardiac Testing Dr. Smith put him a an event monitor. Says he's been having events and has been tranmitting them. HPI Mr Garcia is a very pleasant 57-year-old gentleman with a history of paroxysmal atrial fibrillation and multiple ablations. He has been doing extremely well since his ablation 5 months ago, although he does think he recently had an episode of palpitations that he ascribes to atrial fibrillation. He hasnot had any documentation of his rhythm during one of these episodes and he has been, therefore, wearing an event recorder that Dr Smith gave him. He has had it for about a week, several automatically detected episodes have been transmitted, and we are waiting to see the results of those. Meanwhilepredictably for Yonis, he is very tuned into his own body and when he has palpitations, it has a psych ological impact on him that lasts far longer than the event itself. He has been feeling extremely well on exercising at high capacity better than he has in many years and is feeling somewhat off ever since this started, but recognizes that it needs to be diagnosed before we can make any decisions about where we are going from here. As this is still very few episodes and of unclear etiology, we will wait for the results of these event recordings before making a decision about where we are going from here. Patient Active Problem List Diagnoses ??? A-fib Past Medical History Diagnosis Date ??? AF (atrial fibrillation) had ablation 2 yrs ago ??? Cancer skin cancer on face and back Past Surgical History Procedure Date ??? Tonsillectomy childhood ??? Nasal septum surgery 2006 ??? Ablation of dysrhythmic focus Family History Problem Relation Age of Onset ??? High Cholesterol Mother ??? Heart Disease Father ??? Heart Disease Brother ??? Cancer Maternal Grandfather ??? Heart Disease Paternal Grandmother Social History Substance Use Topics ??? Smoking status: Never Smoker ??? Smokeless tobacco: Never Used ??? Alcohol Use: Yes rare Current Outpatient Prescriptions on File Prior to Visit Medication Sig Dispense Refill ??? Multivitamins with Minerals Tab Take 1 Tab by mouth daily. ??? ascorbic acid (VITAMIN C) 500 mg tablet Take 500 mg by mouth daily. Allergies Allergen Reactions ??? Other - See Comments Swelling of tongue Fresh fruit- - swelling tongue adhesive- - rash ??? Amiodarone Ineffective for A-Fib hallucinations ??? Atenolol Hallucinations and restlessness ??? Flecainide Other (See Comments) Hallucinations ??? Keflex (Cephalexin) Nausea Only ROS - See HPI Objective: BP 140/104 Pulse 77 Ht 177.8 cm (70) Wt 67.132 kg (148 lb) BMI 21.24 kg/m2 SpO2 100% Physical Exam He is alert and oriented x3, cranial nerves are grossly intact. Lungs are clear. He has a normal S1 and S2 without murmurs, rubs or gallops. He has no clubbing, cyanosis or edema and 2+ pulses in his extremities. Assessment: We met for 15 minutes, 10 of which were spent on counseling. Briefly, Yonis has new episodes of palpitations, and he is wearing an event recorder. When we have a rhythm diagnosis, we will make further plans about his treatment. Plan: There are no diagnoses linked to this encounter. Rex Hendricks MD documented in this encounter Plan of Treatment Upcoming Encounters Date Type Specialty Care Team Description 09/13/2022 Office Visit Cardiology Shelton Smith MD [address] [place] [address] [address] [place] [address] (Wo rk) documented as of this encounter Visit Diagnoses Diagnosis A-fib (HCC-CMS) (HCC) - Primary Atrial fibrillation documented in this encounter Discontinued Medications Medication Sig Discontinue Reason Start Date End Date metoprolol (LOPRESSOR) Take 25 mg by mouth 2 04/08/2013 25 mg tablet times daily. warfarin (COUMADIN) 4 Take 1 Tab by mouth at [facility]. Take as directed - 5 mg on 10/10 & 10/12, 4 mg on 10/11, 10/13, & 10/1410/10/2012 04/08/2013 mg tabletIndications: Then as directed by Valerie Indications: ATRIAL FIBRILLATION atrial fibrillation documented as of this encounter Historical Medications This list may reflect changes made after this encounter. Medication Sig Dispensed Refills Start Date End Date aspirin 81 mg EC tablet Take 81 mg by mouth 0 09/24/2019 daily. added in this encounter Care Teams Ophthalmic Tech Relationship Specialty Start Date End Date Danish Cao DO PCP - General 11/26/08 06/26/16 [address] [place] [id number] documented as of this encounter
--- OUTSIDE RECORDS SUMMARY | 2022-02-07 01:33 | XMS_ITS | Encounter Summary ---
:[address] [facility] Address [address] [place] [address] Care Team Providers Name Role Phone Danish Cao Russell DO Primary Care Provider Encounter Details Date Type Department Care Team Description 01/10/2013 Anti-coag visit [facility] Yehuda Manriquez MD Cardiology - [place] [address] [place] [address] (Wo rk) Social History Tobacco [...] documented as of this encounter Progress Notes Omari Mckeon MD - 01/15/2013 1315 EDT Omari Mckeon MD Omari Lambert MD - 01/11/2013 0833 EDT Omari Mckeon MD Valerie Leyva, ROBBY - 01/10/2013 1214 EDT noted Gerald Sanchez - 01/10/2013 0902 EDT Mr. Garcia D/C'd his Coumadin on 01/[address] Hendricks's plan of care. Pt replied by email with understanding of this plan. Protime order at [facility] canceled and pt discharged from [facility]. documented in this encounter Plan of Treatment Upcoming Encounters Date Type Specialty Care Team Description 09/13/2022 Office Visit Cardiology Shelton Smith MD [address] [place] [address] [address] [place] [address] (Wo rk) documented as of this encounter Visit Diagnoses Not on filedocumented in this encounter Care Teams Director Of Dietary Relationship Specialty Start Date End Date Danish Cao, PCP - General 11/26/08 06/26/16 [address] [place] [address] documented as of this encounter
--- OUTSIDE RECORDS SUMMARY | 2022-02-07 01:33 | XMS_ITS | Encounter Summary ---
:1955 Author Organization [facility] Address [address] [place] [address] Care Team Providers Name Role Phone Uriah Davis MD Primary Care Provider Encounter Details Date Type Department Care Team Description 06/05/2019 Abstract [facility], Atri al fibrillation, [facility] Clin ic RN unspecified type [address] ([facility]) (Primary Dx) [place] [address] Social History Tobacco Use Types [...] Office Visit Cardiology Shelton Smith MD [address] [facility] [address] [place] [address] (Wo rk) documented as of this encounter Procedures Procedure Name Priority Date/Time Associated Diagnosis Josh bryan CARDIAC IMPLANT Routine 06/05/2019 17:26 Atrial fibrillation, Results for this CHECK - REMOTE EST unspecified type procedure are in MONITOR ([facility]) the results section. documented in this encounter Results CARDIAC IMPLANT CHECK - REMOTE - LOOP RECORDER (IL[facility]) (06/05/2019 17:26 EST) Specimen Narrative Jasiel Banegas APRN - 06/13/2019 10:33 EST [facility] Visit [employer]: [employer] Device Type: Implantable loop recorder Service: Remote ? Indication: Syncope Battery Longevity: good Symptom: none Tachycardia: none Bradycardia: none Pause: none AF: none Impression: The patient will follow up I n office in 3 months. Normal device evaluation. Jasiel Banegas APRN Procedure Note Jasiel Banegas APRN - 06/13/2019 [facility] Visit [employer]: [employer] Device Type: Implantable loop recorder Service: Remote Indication: Syncope Battery Longevity: good Symptom: none Tachycardia: none Bradycardia: none Pause: none AF: none Impression: The patient will follow up I n office in 3 months. Normal device evaluation. Jasiel Banegas APRN documented in this encounter Visit Diagnoses Diagnosis Atrial fibrillation, unspecified type ([facility] ([facility]) - Primary documented in this encounter Care Teams Paid Search Manager Relationship Specialty Start Date End Date Uriah Davis MD PCP - General 01/17/19 07/12/21 documented as of this encounter
--- OUTSIDE RECORDS SUMMARY | 2022-02-07 01:33 | XMS_ITS | Encounter Summary ---
:1955 Author Organization [facility] Address [address] [place] [address] Care Team Providers Name Role Phone Abhinav Cao DO Primary Care Provider Encounter Details Date Type Department Care Team Description 10/09/2012 - [facility] Rex Hendricks ( [facility]) 10/10/2012 Encounter Cardiac/Telemetry MD Delphine (Primary Dx) [address], [address] [place] [address] [place] [phone] Social History Tobacco Use Types Packs/Day Years [...] Sign Reading Time Taken Comments Blood Pressure 137/81 10/10/2012 0755 EDT Pulse 81 10/10/2012 0617 EDT Temperature 36.3 ??C (97.3 ??F) 10/10/2012 0755 EDT Respiratory Rate 18 10/10/2012 0617 EDT Oxygen Saturation 97% 10/10/2012 0755 EDT Inhaled Oxygen Concentration - - Weight 68 kg (150 lb) 10/02/2012 1317 EDT Height 177.8 cm (5' 10) 10/02/2012 1317 EDT Body Mass Index 21.52 10/02/2012 1317 EDT documented in this encounter Functional Status Cognitive Status Response Date of Assessment Because of a physical, mental, or emotional condition, do Ye s 10/09/2012 you have serious difficulty concentrating, remembering, or making decisions? (5 years old or older) documented as of this encounter Discharge Summaries Rex Hendricks MD - 10/09/2012 1301 EDT Discharge Summary Discharge Date: 10/10/2012 Chief Complaint/Reason for Admission: Lightheadedness Principal/Final Diagnosis: Atrial fibrillation Principal Procedure: Radiofrequency ablation Date: 10/09/2012 Condition at Discharge: Good Assessment at Discharge: Vital signs: Patient Vitals for the past 12 hrs: BP Pulse Heart Rate Resp Temp SpO2 O2 Device 10/10/12 0755 137/81 mmHg - - - 36.3 ??C (97.3 ??F) 97 % Room air 10/10/12 0617 133/92 mmHg 81 81 BPM 18 35.3 ??C (95.5 ??F) 98 % Room air 10/09/12 2329 143/88 mmHg 68 68 BPM 18 36 ??C (96.8 ??F) 97 % Room air Lungs - Clear to auscultation bilaterally Cor - RRR,normal S1,S2, no M/R/G Ext - right and left femoral catheter sites - no bleeding, no hematoma Hospital Course: Braulio Garcia is a 56 year old male with symptomatic PAF. He had 2 previous radiofrequency ablations each with pulmonary vein encircling and isolation. It should be noted that the posterior robinson around the left veins was limited by esophageal temperature rising. A procedure in 2008 was aborted due to clotting in the sheath. He subsequently had a coagulation work up which was negative. He had an ablation in October 2010. He did well for about 1 year. Now he has at least 45 minutes episode of AFIB / week. He also has had 3 episodes of fast regular heart rhythm of 150 bpm that has lead to presyncope. He was admitted to the cardiac electrophysiology laboratory where radiofrequency ablation was performed including re-isolation of the pulmonary veins. At the conclusion of the procedurehe had no inducible tachycardia. He remained in sinus rhythm overnight. He had no evidence of right or left groin bleeding. He will follow up with Dr. Hendricks. His coumadin dosing will be managed by the [facility] clinic during the post ablation period. There is no immunization history for the selected administration types on file for this patient. Diagnostic Studies: Transesophageal Echocardiogram: 1. Left ventricle: There was mild concentric hypertrophy. Systolic function was normal. The estimated ejection fraction was 60-65%. Wall motion was normal; there were noregional wall motion abnormalities. 2. Aortic valve: Trivial regurgitation. 3. Aortic root: The aortic root was mildly dilated (41mm). 4. Ascending aorta: The ascending aorta was at upper normal limits. 5. Descending aorta: The descending aorta was normal in size; it had mild diffuse disease. 6. Left atrium: The atrium was mildly dilated. No evidence of thrombus in the atrial cavity or appendage. 7. Right atrium: No evidence of thrombus. 8. Atrial septum: No defect or patent foramen ovale was identified. There was a small atrial septal aneurysm. Last Lab Results at Discharge: BUN: Lab Results Component Value Date BUN 15 10/08/2012 Creatinine: Lab Results Component Value Date CREATININE 0.81 10/08/2012 CBC: Lab Results Component Value Date WBC 7.43 10/08/2012 RBC 4.93 10/08/2012 HGB 14.8 10/08/2012 HCT 44.4 10/08/2012 MCV 90 10/08/2012 MCH 30.0 10/08/2012 MCHC 33.3 10/08/2012 PLT 285 10/08/2012 Electrolytes: Lab Results Component Value Date NA 142 10/08/2012 K 4.8 10/08/2012 CL 105 10/08/2012 CO2 27 10/08/2012 INR: Lab Results Component Value Date INR 2.9* 10/10/2012 INR 3.1* 10/09/2012 INR 3.0* 10/08/2012 PROTIME 34.1* 10/10/2012 PROTIME 36.0* 10/09/2012 PROTIME 34.9* 10/08/2012 Lab Results Component Value Date HGBA1C 5.4 08/26/2010 Meds at Discharge: Medication List As of 10/10/2012 11:03 START taking these medications pantoprazole 40 mg tablet Commonly known as: PROTONIX Take 1 Tab by mouth daily. CHANGE how you take these medications warfarin 4 mg tablet Commonly known as: COUMADIN Take 1 Tab by mouth at bedtime. Take as directed - 5 mg on 10/10 & 10/12, 4 mg on 10/11, 10/13, & 10/14 Then as directed by Valerie Indications: ATRIAL FIBRILLATION What changed: - medication strength - dose - how often to take the med - doctor's instructions CONTINUE taking these medications ascorbic acid 500 mg tablet Commonly known as: VITAMIN C metoprolol 25 mg tablet Commonly known as: LOPRESSOR Multivitamins with Minerals Tab STOP taking these medications atenolol 50 mg tablet cc: PCP: ABHINAV CAO DO Referring Prov:Rex Hendricks Discharge Summary Completed: yes I have seen and examined the patient and agree with the above history and physical exam and assessment and plan. documented in this encounter Discharge Instructions Alvina Arizmendi NP - 10/09/2012 Discharge Instructions for A-fib Ablation Patients 1. Wound Care: ?? You may remove the Band-Aids/Dressings from the sites the next morning ?? You may shower the following day. ?? No tub bathing for five days. This includes hot tubs and pools. 2. Call your physician or nurse if: ?? You develop drainage, redness, or swelling at any of the sites ?? You develop a fever ?? You develop increased tenderness and/or increased bruising over sites which doesn't resolve in 2 days ?? You develop a persistent and/or productive cough ?? Your symptoms reoccur 3. Activity: ?? You can resume your normal activities in one week, unless you have been instructed otherwise ?? If you are traveling by car or airplane in the next week, you will need to stand and move around every 2 hours to promote circulation ?? No vigorous activity for 2 weeks. Avoid running, squatting and heavy lifting (>10 lbs) during this time period. ?? You may resume driving after 48 hours unless instructed otherwise ?? You may return to work after 5 days if your work demands are not physical. If your job entails strenuous activity, a two week waiting period is recommended. 4. Medications: ?? Resume prior medications unless otherwise instructed ?? Coumadin dosing - take 5 mg on Tuesday 10/10 & Thursday 10/12. Take 4 mg on 10/11, Friday 10/13 and Saturday 10/14 ?? Have your blood drawn to check your INR on Sunday 10/15 in the morning. 5. Appointments: See Rex Garcia MD. On October 22 at 2:00 If you have any questions or concerns, please don't hesitate to call the Cardiac Arrhythmia Service at [facility] at x [phone] (or dial direct-[phone]) and leave a message for Valerie Pitt RN and she will return your call as soon as possible. documented in this encounter Medications at Time [...] 10/22/2012 40 mg tablet daily. warfarin (COUMADIN) 4 Take 1 Tab by mouth at bedti me. Take as directed - 5 mg on 10/10 & 10/12, 4 mg on 10/11, 10/13, & 10/14 30 Tab 0 10/11/19 13 04/08/2013 mg tabletIndications: Then as directed by Valerie Indications: ATRIAL FIBRILLATION atrial fibrillation documented as of this encounter Ordered Prescriptions Prescription Sig Dispensed Refills Start Date End Date warfarin (COUMADIN) 4 Take 1 Tab by mouth at bedti me. Take as directed - 5 mg on 10/10 & 10/12, 4 mg on 10/11, 10/13, & 10/14 30 Tab 0 10/11/19 13 04/08/2013 mg tabletIndications: Then as directed by Valerie Indications: ATRIAL FIBRILLATION atrial fibrillation pantoprazole (PROTONIX) Take 1 Tab by mouth 30 Tab 0 10/22/2012 40 mg tablet daily. documented in this encounter Discharge Disposition Disposition Code Departure Means Destination Home or Self Care documented in this encounter Progress Notes MORTAR CARRIER, SCAN 2 - 01/16/2013 0845 EDT Renee Christianson - 10/09/2012 1614 EDT Data: Patient post ablation Hypertensive see flow sheet, asymptomatic bilateral groin sites CDI denies any pain at this time. Patient states this has happened during prior admissions for ablations and was resolved once cedeño d/c and bed rest discontinued Action: Dr. Abdulaziz mills sa aware patient taken off of bedrest and cedeño D/C Response: Will CTM Renee Llanos RN 10/09/2012 16:14 Celeste Monet LPN - 10/09/2012 0646 EDT 0645 Braulio Garcia Arrived in CVU walking. Orders released and acknowledged by RN. Denies pain at this time. 0705 Labs sent stat; EP prep completed. Pt states he gets light headed and passes out- - last event was 1 week ago. 0715 at bedside, call tolentino with in reach, stretcher in low position, side rails up. Report to co-signing RN. [id number] Dr. Cintron here speaking to pt and . Consents with . 0725 To EP lab via stretcher with . Edvin Colonectronically signed by Latasha López RN at 10/09/2012 9:29 Harry Delgado RN - 10/02/2012 1315 EDT Braulio Garcia has been instructed as follows regarding medication administration for the day of the scheduled procedure. Date of Surgery: ALL Meds information given by cardiology. Patient aware to follow. Instructions for Taking Medications Day of Surgery Medication Last Dose Hold DOS Take DOS Yes warfarin (COUMADIN) 2 mg tablet 09/26/12 ASPIRIN (ASPIR-81 ORAL) Multivitamins with Minerals Tab ascorbic acid (VITAMIN C) 500 mg tablet documented in this encounter H&P Notes Rex Hendricks MD - 10/09/2012 0734 EDT Cardiology H&P PCP: ABHINAV CAO DO Chief Complaint: AFIB HPI: 56 y.o. male with symptomatic PAF. He is s/p 2 ablations (PVI and PVE). It should be noted thatposterior robinson around the left veins was limited by esophageal temperature rising. A procedure in 2008 was aborted due to clotting in the sheath. Coagulation work up was negative. Last ablation was performed in October 2010. He did well for about 1 year. Now he has at least 45 minutes episode of AFIB / week. He also has had 3 episodes of fast regular heart rhythm of 150 bpm that has lead to presyncope. A 10-point review of systems was conducted. Pertinent positives are noted in HPI. Past Medical History Diagnosis Date ??? AF (atrial fibrillation) had ablation 2 yrs ago ??? Cancer skin cancer on face and back Prescriptions prior to admission Medication ??? metoprolol (LOPRESSOR) 25 mg tablet ??? warfarin (COUMADIN) 2 mg tablet ??? Multivitamins with Minerals Tab ??? ascorbic acid (VITAMIN C) 500 mg tablet Allergies as of 09/28/2012 - Kalpesh as Reviewed 05/28/2012 Allergen Reaction Noted ??? Other - see comments Swelling of tongue 10/13/2009 ??? Amiodarone 10/13/2009 ??? Atenolol 10/13/2009 ??? Flecainide Other (See Comments) 10/13/2009 ??? Keflex (cephalexin) Nausea Only 10/13/2009 History Social History ??? Marital Status: Spouse Name: N/A Number of Children: N/A ??? Years of Education: N/A Occupational History ??? Not on file. Social History Main Topics ??? Smoking status: Never Smoker ??? Smokeless tobacco: Never Used ??? Alcohol Use: Yes rare ??? Drug Use: No ??? Sexually Active: Not on file Other Topics Concern ??? Not on file Social History Narrative ??? No narrative on file Family History Problem Relation Age of Onset ??? High Cholesterol Mother ??? Heart Disease Father ??? Heart Disease Brother ??? Cancer Maternal Grandfather ??? Heart Disease Paternal Grandmother Exam Patient Vitals for the past 8 hrs: BP Temp Temp src Resp SpO2 10/09/12 0649 143/107 mmHg 36.6 ??C (97.9 ??F) Temporal 16 100 % Gen: NAD, male appears stated age HEENT: PERRL, mmm, good dentition Neck: JVP ~ 5cm, no carotid bruits, carotid upstrokes 2+ and symmetric CV: rrr Lungs: CTAB Abd: soft, NT/ND, no OM, +BS Ext: no c/c/e Pulses: dpp 2+ and symmetric Neuro: A + O x 3, non-focal, moving all four extremities Data Lab Results Component Value Date/Time NA 142 10/08/2012 0820 NA 140 08/27/2008 0600 K 4.8 10/08/2012 0820 K 4.3 08/27/2008 0600 CL 105 10/08/2012 0820 CL 107 08/27/2008 0600 CO2 27 10/08/2012 0820 CO2 25 08/27/2008 0600 BUN 15 10/08/2012 0820 BUN 17 08/27/2008 0600 CREATININE 0.81 10/08/2012 0820 CREATININE 0.82 08/27/2008 0600 CALCIUM 9.3 08/26/2010 1648 MG 2.3 08/26/2010 1804 Lab Results Component Value Date/Time WBC 7.43 10/08/2012 0820 WBC 11.44* 08/27/2008 0600 HCT 44.4 10/08/2012 0820 HCT 40.0 08/27/2008 0600 PLT 285 10/08/2012 0820 PLT 262 08/27/2008 0600 MCV 90 10/08/2012 0820 MCV 89 08/27/2008 0600 Lab Results Component Value Date/Time INR 3.0* 10/08/2012 0820 INR 2.5 10/04/2012 0820 INR 1.3* 08/27/2008 0600 PTT 53* 10/08/2012 0820 PTT 43* 08/25/2008 1242 Lab Results Component Value Date/Time CHOL 177 08/27/2010 0609 CHOL 197 03/23/2009 1444 LDLBASE 102 08/27/2010 0609 HDL 58 08/27/2010 0609 TRIG 83 08/27/2010 0609 TRIG 201* 03/23/2009 1444 HGBA1C 5.4 08/26/2010 1804 No results found for this basename: BNP, NTBNP, CK, MB, TROPONINI A/P: 56 y.o. male with symptomatic PAF. We will proceed to redo AFIB abaltion D/W Dr. gigi mills sa, MD Claims Director pager [phone] I have seen and examined the patient and agree with the above history and physical exam and assessment and plan. documented in this encounter Procedure Notes MORTAR CARRIER, SCAN 2 - 10/15/2012 1122 EDTAssociated Order(s): ECG REPORT - SCANNED MORTAR CARRIER, SCAN 2 - 10/15/2012 1122 EDTAssociated Order(s): CARDIAC CATHERIZATION REPORT - SCANNED pectorRex MD - 10/09/2012 1130 EDT Electrophysiology Laboratory Preliminary Report -- Invasive Electrophysiology Procedure Date of Service/Procedure: 10/09/2012 Attending Physician: Rex Hendricks MD Fellow: Syed mills Sa, MD Pre-Procedure Diagnosis/Indication: Braulio Garcia is a 56 y.o. year old male Presents to [facility] Electrophysiology Laboratory in [place] 7 for an Albation which is Indicated for atrial fibrillation. Anesthesia: Local anesthesia was used., General anesthesia was used.. Access: Right femoral vein 2 x 8.5 fr Left femoral vein 1 x 8.5 fr and 2 x 7.0 fr Post-Procedure Condition: The condition of the patient was Good. Complications: None. Estimated Blood Loss: Minimal. Unless otherwise noted, there were no specimens removed, cultures obtained, or drains retained. Clinical Trial: The patient is enrolled in a clinical trial (Trial Name: nursing home follow up ). The trial does not involve an investigational device exemption. Summary of Procedure: Redo pulmonary vein isolation No inducible tachycardia IN/OUT: 1700/450 cc Post-Procedure Diagnosis: atrial fibrillation Plan: see post-procedure orders, bedrest for 4 hour(s), continue anticoagulation and Ketorolac for pericardial pain. At the completion of the procedure, the attending physician has explained the findings, therapies, any complications and treatment plan to the patient. With the patients consent, all family members andpatient support persons who were present at the conclusion of the procedure have been notified of these results and treatment plans as well. Post Procedural Disposition: Bedded outpatient status is indicated. Reference: Hospitalization Criteria for Pacemaker and ICD Placement and EP/Ablation; Heart Rhythm Society; Revised December, Final report will appear on imaging tab when complete. SYED MILLS SA, MD 10/09/2012 11:30 I was present for the mejia and critical portions of the procedure. documented in this encounter OR Notes Anesthesia Procedure Notes - MORTAR CARRIER, SCAN 2 - 10/15/2012 1419 EDT R PreOp - MORTAR CARRIER, SCAN 2 - 10/15/2012 1122 EDT nesthesia Procedure Notes - MORTAR CARRIER, SCAN 2 - 10/09/2012 1208 EDT nesthesia Preprocedure Evaluation - MORTAR CARRIER, SCAN 2 - 10/09/2012 0803 EDT documented in this encounter Miscellaneous Notes Scanned Note-Null - MORTAR CARRIER, SCAN 2 - 10/15/2012 1122 EDT canned Note- Null - MORTAR CARRIER, SCAN 2 - 10/15/2012 1122 EDT canned Note- Null - MORTAR CARRIER, SCAN 2 - 10/15/2012 1122 EDT nesthesia Post-Eval - Kanwal Lucas CRNA - 10/10/2012 1110 EDT Post Anesthesia Evaluation Date of Service: 10/10/2012 The patient has been evaluated and assessed. If present, post anesthetic events are documented below. The last set of recorded vital signs and pain rating were reviewed: ,Numeric Pain Level (Scale 1-10): 0 Procedure detail: Anesthesia Type: General Level of Consciousness: Awake Vital Signs: Stable Pulmonary Status: Coughing/deep breathing Post Op Pain: Taking PO/IV pain meds with good effect Ambulatory Status: Ambulating Additional follow up needed: No Perioperative events: General Events: None Recall: Absent KANWAL LUCAS CRNA 10/10/2012 11:10 lan of Radha Zaragoza RN - 10/10/2012 1108 EDT Problem: DISCHARGE PLANNING Goal: Patient???s Continuum Of Care Needs Are Met D: Patient to be discharged per MD. A: IV removed, catheter tip intact. Telemetry removed. RN reviewed discharge instructions and medications with patient and . Patient received medication sheets, and discharge instructions. R: Patient expressed good understanding of discharge instructions. They have no questions at this time. Patient dressed independently. They left via wheelchair. lan of Tiny Cosme RN - 10/09/2012 2209 EDT Problem: CIRCULATORY STATUS Goal: Patient Has Stable Vital Signs And Fluid Balance Outcome: Ongoing Data: Assumed care of pt at 1930. Pt SR HR 70s and denies cp, sob, and pain. Pt has bilateral groin sites from ablation that are clean, dry, and intact. Pt INR 3.1 and due for 4mg of coumadin. Pt has urinated since having catheter out. Action: MD Kelli called about INR. MD changed coumadin order to 2mg. Administered meds as ordered. Completed admission database. Response: Pt resting comfortably in bed. Will continue to monitor and assess. Tiny Kahn RN 10/09/2012 22:06 nesthesia Post-Eval - Esmer Bellamy MD - 10/09/2012 1531 EDT Post Anesthesia Evaluation Note Date of Service: 10/09/2012 Braulio Garcia, a 56 y.o. year old male has received General Anesthesia He has been evaluated, assessed and discharged from anesthesia care with stable cardiorespiratory function and alert mental status. The last set of recorded vital signs and pain rating were reviewed: Heart Rate: 78 BPM (10/09/12 1434), BP: 160/95 mmHg (10/09/12 1434), Resp: 20 (10/09/12 1434), SpO2:100 % (10/09/12 1434),Numeric Pain Level (Scale 1-10): 2 Braulio Garcia participated in this evaluation unless otherwise noted. His pain, nausea and vomiting have been managed and his body temperature and fluid balance have been restored. Additional monitoring and assessment needs have been addressed. If present, any postoperative events are documented below. If the regional block for postoperative analgesia was intended to last greater than 48 hours, Braulio Garcia will be followed by the Acute Pain Service. ESMER BELLAMY MD 10/09/2012 15:31 canned Note- Null - MORTAR CARRIER, SCAN 2 - 10/09/2012 0633 EDT canned Note- Null - MORTAR CARRIER, SCAN 2 - 10/09/2012 0633 EDT documented in this encounter Plan of Treatment Upcoming Encounters Date Type Specialty Care Team Description 09/13/2022 Office Visit Cardiology Shelton Smith MD [address] [place] [address] [address] [place] [address] (Wo rk) documented as of this encounter Procedures Procedure Name Priority Date/Time Associated Comments Diagnosis ECG REPORT - SCANNED 10/15/2012 11:22 Res ults for this EDT procedure are i n the results section. INVASIVE CARDIOLOGY 10/15/2012 11:22 Resu lts for this REPORT-SCANNED EDT procedure are in the results section. PROTIME Routine 10/10/2012 5:36 EDT Results for this procedure are i n the results section. ACT, CELITE ISTAT Routine 10/09/2012 11:04 Result s for this EDT procedure are i n the results section. ACT, CELITE ISTAT Routine 10/09/2012 10:32 Result s for this EDT procedure are i n the results section. ACT, CELITE ISTAT Routine 10/09/2012 10:02 Result s for this EDT procedure are i n the results section. PTT STAT 10/09/2012 6:56 EDT Results for this procedure are i n the results section. PROTIME STAT 10/09/2012 6:56 EDT Results for this procedure are i n the results section. TYPE AND SCREEN Routine 10/09/2012 6:50 EDT Resul ts for this procedure are i n the results section. documented in this encounter Results ECG REPORT - SCANNED (10/15/2012 11:22 EDT) Specimen Narrative 10/15/2012 11:43 EDT Procedure Note MORTAR CARRIER, SCAN 2 - 10/15/2012 11:22 EDT CARDIAC CATHERIZATION REPORT - SCANNED (10/15/2012 11:22 EDT) Specimen Narrative 10/15/2012 11:43 EDT Procedure Note MORTAR CARRIER, SCAN 2 - 10/15/2012 11:22 EDT (ABNORMAL) PROTIME (10/10/2012 5:36 EDT) Pro Time 34.1 (H) 9.5 - 13.1 [facility] secs I.N.R. 2.9 (H) 0.9 - 1.1 [facility] Comment: Ratio Moderate Intensity Coumadin INR = 2.0-3.0 Adjustments in anticoagulant therapy dose should be based upon the INR and NOT the Pro Time. Specimen Blood specimen (specimen) Performing Organization Address [facility] [place] Phon e Number [facility] [address] [place] [address] SERVICES [facility] [address] [place] [address] ACT, CELITE ISTAT (10/09/2012 11:04 EDT) Activated Clotting 406 [facility] Time Tech ID [id number] [facility] Comment: Test performed by Cardiology. Baseline ref range for ACT = 84 to 139 seconds For non baseline ref ranges see procedure. Specimen Performing Organization Address [facility] [place] Phon e Number [facility] [address] [place] [address] SERVICES [facility] [address] [place] [address] ACT, CELITE ISTAT (10/09/2012 10:32 EDT) Activated Clotting 358 [facility] Time Tech ID [id number] [facility] Comment: Test performed by Cardiology. Baseline ref range for ACT = 84 to 139 seconds For non baseline ref ranges see procedure. Specimen Performing Organization Address [facility]/ZIP [facility] Phon [place] Number [facility] [address] [place] [address] SERVICES [facility] [address] [place] [address] ACT, CELITE ISTAT (10/09/2012 10:02 EDT) Activated Clotting 324 [facility] Time Tech ID [id number] [facility] Comment: Test performed by Cardiology. Baseline ref range for ACT = 84 to 139 seconds For non baseline ref ranges see procedure. Specimen Performing Organization Address [facility] [place] Phon e Number [facility] [address] [place] [address] SERVICES [facility] [address] [place] [address] (ABNORMAL) PTT (10/09/2012 6:56 EDT) Pathologist Sig nature PTT 54 (H)Comment: 26 - 37 secs [facility] Therapeutic Heparin range: 65-100 seconds Specimen Blood specimen (specimen) Performing Organization Address [facility]/ZIP [facility] [place] Phon [place] Number [facility] [address] [place] [address] SERVICES [facility] [address] [place] [id number] (ABNORMAL) PROTIME (10/09/2012 6:56 EDT) Pro Time 36.0 (H) 9.5 - 13.1 [facility] secs I.N.R. 3.1 (H) 0.9 - 1.1 [facility] Comment: Ratio Moderate Intensity Coumadin INR = 2.0-3.0 Adjustments in anticoagulant therapy dose should be based upon the INR and NOT the Pro Time. Specimen Blood specimen (specimen) Performing Organization Address [facility]/Z[place] [facility] [place] Number [facility] [address] [place] [address] SERVICES [facility] [address] [place] [id number] TYPE AND SCREEN (10/09/2012 6:50 EDT) Pathologist Sig nature ABO O [facility] Rh Factor Positive [facility] Antibody Screen NegativeComment: [facility] SPECIMEN EXPIRES AT 23:59 ON 10/12/2012 Specimen Blood specimen (specimen) Performing Organization Address [facility] [place] Phon e Number [facility] [address] [place] [phone] SERVICES [facility] [address] [place] [phone] documented in this encounter Visit Diagnoses Diagnosis A-fib (HCC-CMS) (HCC) - Primary Atrial fibrillation documented in this encounter Administered Medications Inactive Administered Medications - up to 3 most recent administrations Medication Order MAR Action Action Date Dose Rate Site acetaminophen (TYLENOL) tablet 650 Given 10/09/2012 12:58 EDT 65 0 mg mg 650 mg, oral, PRN, 2 doses, Starting on Mon10/09/12 at 1117, Until Mon10/09/12 at 1453, Pain, Routine, Recovery (only) ascorbic acid (VITAMIN C) tablet 500 mg Given 10/10/2012 8:18 EDT 500 mg 500 mg, oral, DAILY, First dose on Mon10/09/12 at 1600, Until Discontinued, Routine ketOROLAC (TORADOL) injection 15 mg Given 10/09/2012 23:32 EDT 15 mg 15 mg, intravenous, EVERY 6 HOURS, 20 doses, First dose on Mon10/09/12 at 1230, Last dose on Mon10/14/12 at 0630, Routine, Postprocedure Given 10/09/2012 18:25 EDT 15 mg Given 10/09/2012 12:57 EDT 15 mg lactated ringers (LR) infusion Rate Documented 10/09/2012 11:39 EDT 75 mL/hr at 75 mL/hr, intravenous, CONTINUOUS, Starting on Mon10/09/12 at 1145, Until Mon10/09/12 at 1453, Routine, Recovery (only) metoprolol (LOPRESSOR) tablet 25 mg Given 10/10/2012 8:18 EDT 25 mg 25 mg, oral, 2 TIMES DAILY, First dose on Mon10/09/12 at 2100, Until Discontinued, Routine Given 10/09/2012 20:46 EDT 25 mg Multivitamins with Minerals tablet 1 Tab Given 10/10/2012 8:18 EDT 1 Tablet 1 Tablet, oral, DAILY, First dose on Mon10/09/12 at 1600, Until Discontinued, Routine sodium chloride 0.9 % (NS) Given by Other 10/09/2012 7:15 EDT 30 mL/h r 30 mL/hr infusion at 30 mL/hr, 30 mL/hr, intravenous, CONTINUOUS, Starting on Mon10/09/12 at 0715, Until Mon10/09/12 at 1542, Routine, Preprocedure warfarin (COUMADIN) tablet 2 mg Given 10/09/2012 20:46 EDT 2 mg 2 mg, oral, NOW X1, 1 dose, On Mon10/09/12 at 2100, Indications: atrial fibrillation, Is this a new start or continuation of therapy? Continuation, Routine documented in this encounter Discontinued Medications Medication Sig Discontinue Reason Start Date End Date DILTiazem (CARDIZEM CD) Take 1 Cap by mouth Error 12/15/2011 10/02/2012 240 mg ER capsule daily. atenolol (TENORMIN) 50 mg Take 25 mg by mouth Error 10/02/2012 tablet 2 times daily. warfarin (COUMADIN) 2 mg Take 2.5 Tabs by 09/26/2012 10/10/2012 tablet mouth daily. documented as of this encounter Historical Medications This list may reflect changes made after this encounter. Medication Sig Dispensed Refills Start Date End Date metoprolol (LOPRESSOR) 25 Take 25 mg by mouth 0 04/08/2013 mg tablet 2 times daily. atenolol (TENORMIN) 50 mg Take 25 mg by mouth 0 10/02/2012 tablet 2 times daily. added in this encounter Active and Recently Administered Medications Times are shown in EDT. Scheduled Medication Order 10/08/2012 10/09/2012 10/10/2012 ascorbic acid (VITAMIN C) tablet 500 mg (CANCELED) 1712 (Not Given - Provider: Renee Llanos - Reason: Other - Comment: took at home) 0818 (Given - Provider: Radha Nicholson, ROBBY) 500 mg, oral, DAILY, First dose on Mon10/09/12 at 1600, Until Di scontinued ketOROLAC (TORADOL) injection 15 mg (CANCELED) 1257 (Given - Provider: Juanito Abernathy RN - Comment: headache)1825 (Given - Provider: Renee Llanos)2332 (Given - Provider: Tiny Kahn RN) 0617 (Not Given - Provider: Tiny Kahn RN - Reason: Patient/family refused) 15 mg, intravenous, EVERY 6 HOURS, 20 do ses, First dose on Mon10/09/12 at 1230, Last dose on Mon10/14/12 at 0630 metoprolol (LOPRESSOR) tablet 25 mg (CANCELED) 2045 (Given - Provider: Tiny Kahn RN) 0818 (Given - Provider: Radha Nicholson, ROBBY) 25 mg, oral, 2 TIMES DAILY, First dose o n Mon10/09/12 at 2100, Until Discontinued Multivitamins with Minerals tablet 1 Tab (CANCELED) 171 (Not Given - Provider: Renee Llanos - Reason: Other - Comment: took at home) 0818 (Given - Provider: Radha Nicholson, ROBBY) 1 Tab, oral, DAILY, First dose on Mon10/09/12 at 1600, Until Dis continued pantoprazole (PROTONIX) tablet 40 mg 171 3 (Not Given - Provider: Renee Llanos - Reason: Other - Comment: took at home) 0900 (Canceled Entry - Provider: Radha Nicholson, ROBBY) 40 mg, oral, DAILY, First dose on Mon10/09/12 at 1600, Until Dis continued warfarin (COUMADIN) tablet 2 mg (COMPLETED) 2045 (Given - Provider: Tiny Kahn, ROBBY) 2 mg, oral, NOW X1, 1 dose, Mon10/09/12 at 2100 warfarin (COUMADIN) tablet 4 mg 4 mg, oral, AT BEDTIME, First dose on Mon10/10/12 at 2100, Until Discontinued Continuous Medication Order 10/08/2012 10/09/2012 10/10/2012 lactated ringers (LR) infusion (CANCELED) 1139 (Rate Documented - Provider: Juanito Abernathy RN) at 75 mL/hr, intravenous, CONTINUOUS, St arting Mon10/09/12 at 1145, Until Mon10/09/12 at 1453 sodium chloride 0.9 % (NS) infusion (CANCELED) 0715 (Given by Other - Provider: Francis Weeks RN - Comment: started in CVU) at 30 mL/hr, 30 mL/hr, intravenous, CONT INUOUS, Starting Mon10/09/12 at 0715, Until Mon10/09/12 at 1542 PRN Medication Order 10/08/2012 10/09/2012 10/10/2012 acetaminophen (TYLENOL) tablet 650 mg (CANCELED) 1258 (Given - Provider: Juanito Abernathy RN - Comment: headache) 650 mg, oral, PRN, 2 doses, Starting Mon10/09/12 at 1117, Until Mon10/09/12 at 1453, Pain documented in this encounter Orders Medications Ordered That Might Not Have Count Last Ord ered Date First Ordered Date Been Administered atropine 1 mg/mL 1 mL vial 0.4 mg 1 10/09/2012 fentanyl citrate (PF) 50 mcg/mL injection 1 2012 25-100 mcg heparin 1,000 unit/mL injection 1 10/09/2012 heparin in D5W 25,000 unit/250 mL infusion 1 10/09 lidocaine (XYLOCAINE) 2 % jelly 1 10/09/2012 lidocaine 10 mg/mL (1 %) injection 1 10/09/2012 naloxone (NARCAN) injection 0.2 mg 1 10/09/2012 ondansetron (PF) (ZOFRAN) injection 2 mg 1 013 pantoprazole (PROTONIX) tablet 40 mg 1 10/09/2012 protamine 10 mg/mL injection 1 10/09/2012 sodium chloride 0.9 % (NS) infusion 1 10/09/2012 warfarin (COUMADIN) tablet 4 mg 2 10/09/2012 warfarin education book 1 Each 1 10/09/2012 Lab Orders Without Results Count Last Ordered Date Fir st Ordered Date POCT GLUCOSE 1 10/09/2012 Nursing Count Last Ordered Date First Ordered Date INSERT PERIPHERAL IV 1 10/09/2012 Admission Count Last Ordered Date First Ordered Date STATUS: OUTPATIENT MEDICAL OP BED/SERVICES 2 10/09 Transfer Count Last Ordered Date First Ordered Date NOTIFY PPS OF DISCHARGE COMPLETE 1 10/10/2012 NOTIFY PPS PATIENT ARRIVAL IN PACU 1 10/09/2012 NOTIFY PPS PATIENT TRANSFERRED OUT OF PACU 1 10/09 PPS NOTIFICATION OF PATIENT ARRIVAL ON 3 UNIT Discharge Count Last Ordered Date First Ordered Date DISCHARGE PATIENT 1 10/10/2012 documented in this encounter Care Teams Political Analyst Relationship Specialty Start Date End Date Abhinav Cao DO PCP - General 11/26/08 06/26/16 [address] [id number] documented as of this encounter
--- OUTSIDE RECORDS SUMMARY | 2022-02-07 01:33 | XMS_ITS | Encounter Summary ---
:1955 Author Organization [facility] Address [address] [place] [address] Care Team Providers Name Role Phone Danish Cao DO Primary Care Provider Encounter Details Date Type Department Care Team Description 10/01/2012 Anti-coag visit [facility] Valerie Pitt RN Cardiology - [address] [place] [phone] Social History Tobacco Use Types Packs/Day Years [...] mental, or emotional condition, do Ye s 06/14/2011 you have serious difficulty concentrating, remembering, or making decisions? (5 years old or older) documented as of this encounter Progress Notes Omari Mckeon MD - 10/01/2012 1433 EDT Omari Mckeon MD Valerie Leyva RN - 10/01/2012 1331 EDT Dose change. Message left for pt w/ instructions and requested to call back to report message received. documented in this encounter Plan of Treatment Upcoming Encounters Date Type Specialty Care Team Description 09/13/2022 Office Visit Cardiology Shelton Smith MD [address] [place] [address] [address] [place] [address] (Wo rk) documented as of this encounter Procedures Procedure Name Priority Date/Time Associated Diagnosis Comme nts PROTIME Routine 10/01/2012 13:29 EDT Results for this procedure are i n the results section . documented in this encounter Results PROTIME (10/01/2012 13:29 EDT) Pathologist Sig nature Protime, External [facility] INR, External 1.6 [facility] Specimen Blood specimen (specimen) Performing Organization Address City/State/ZIP Code Phon e Number [facility] documented in this encounter Visit Diagnoses Not on filedocumented in this encounter Care Teams Granite Polisher Relationship Specialty Start Date End Date Danish Cao, PCP - General 11/26/08 06/26/16 [address] [id number] documented as of this encounter
--- OUTSIDE RECORDS SUMMARY | 2022-02-07 01:33 | XMS_ITS | Encounter Summary ---
:1955 Author Organization [facility] Address [address] [place] [address] Care Team Providers Name Role Phone Renee Corcoran NP Primary Care Provider Uriah Davis MD Primary Care Provider Shelton Smith MD Unavailable [phone] Tho Genao Primary Care Provider Encounter Details Date Type Department Care Team Description 09/08/2017 Historical Results Only [facility] - Unknown, [facility] Cardiology Clin ic Provider, [address] [phone] [place] [address] (Work) [phone] Social History Tobacco Use Types Packs/Day Years [...] 09/13/2022 Office Visit Cardiology Shelton Smith MD [address] [place] [address] [phone] (Wo rk) documented as of this encounter Procedures Procedure Name Priority Date/Time Associated Comments Diagnosis TRANSTHORACIC ECHO 09/08/2017 14:02 Resul ts for this (TTE) COMPLETE EST procedure are in the results section. documented in this encounter Results TRANSTHORACIC ECHO (TTE) COMPLETE (09/08/2017 14:02 EST) Specimen Narrative [facility] - 09/08/2017 14:02 EST ?[facility] ?[address] [address] ? [id number] ? E C H O C A R D I O G R A M ? R E P O R T NAME: NOHEMY GARCIA ?: 51 ? LOCATION: CARD ? TELEPHONE: [phone] ?MR#: [id number] ? *[facility]* *[facility]* [address] [place] [address] Date of study: 09/08/2017 Transthoracic Echocardiography M-mode, complete 2D, complete spectral D oppler, and color Doppler *STUDY CONCLUSIONS* Summary: 1. Left ventricle: The cavity size was n ormal. Wall thickness was ?? normal. Systolic function was normal . The estimated ejection fraction ?? was 60-65%. Wall motion was normal; there were no regional wall ?? motion abnormalities. 2. Aortic valve: Trileaflet; normal thic kness leaflets. There was ?? trivial regurgitation. 3. Aorta: The aorta was moderately dilat ed. Aortic root diameter: 4.7cm. ?? Ascending aortic AP diameter: 4.2cm. 4. Mitral valve: There was mild regurgit ation. 5. Right ventricle: The cavity size was normal. Wall thickness was ?? normal. Systolic function was normal . *PATIENT PRESENTATION* Height: ? 177.8cm ((70in) ) S/D Pressure: 161 / 82 Weight: ? 70.3kg ((154.7lb) ) BSA: ?1.86m S 2 Test start time: ??01:56 PM. Test stop time: ??02:35 PM. ORDERING ? Manny Moore MD REFERRING ?Manny Moore MD FORMING MACHINE UPKEEP MECHANIC HELPER ??Kristal Obregon PERFORMING ?? [facility] *PROCEDURE DATA* Procedure information: ??The patient was identified by two identifiers. This study was interpreted by [facility]. Pertinent images and digital data are archived for permanent storage and are available for subsequent ?[facility] ?[address] [place], [place] [address] ?( [phone] ? E C H O C A R D I O G R A M ? R E P O R T NAME: TORIBIONOHEMY Sebastian ?: 51 ? LOCATION: CARD ? TELEPHONE: [phone] ?MR#: [id number] ? review. Comparison was made to the study of June 2015. ??Study status: ??Routine. Transthoracic echocar diography. ??M-mode, complete 2D, complete spectral Doppler, and color Dop pler. A Transthoracic Echocardiogram was performed. Scanning w as performed from the parasternal, apical, subcostal, and supr asternal notch acoustic windows. Images were obtained using a [facility] IE33 1 cardiac ultrasound machine. Image quality was adequate. ??Study comp letion: ??The patient tolerated the procedure well. There were no compli cations. *INDICATIONS AND HISTORY* Indications: ??AI *CARDIAC ANATOMY* Left ventricle: ??The cavity size was no rmal. Wall thickness was normal. Systolic function was normal. The estima maria guadalupe ejection fraction was 60-65%. Wall motion was normal; there we re no regional wall motion abnormalities. Diastolic parameters were normal. Aortic valve: ?? Trileaflet; normal thic kness leaflets. Mobility was not restricted. ??Doppler: ??Transvalvular v elocity was within the normal range. There was no stenosis. There was trivial regurgitation. Aorta: ??The aorta was moderately dilate d. Mitral valve: ?? Structurally normal khurram ve. ?? Mobility was not restricted. ??Doppler: ??Transvalvular v elocity was within the normal range. There was no evidence for stenosi s. There was mild regurgitation. Left atrium: ??The atrium was normal in size. Right ventricle: ??The cavity size was n ormal. Wall thickness was normal. Systolic function was normal. Pulmonic valve: ?Structurally normal valve. ?Doppler: ??Transvalvular velocity was within the normal range. Th ere was no evidence for stenosis. There was trivial regurgitatio n. Tricuspid valve: ?? Structurally normal valve. ?Doppler: ??Transvalvular velocity was within the normal range. Th ere was no evidence for stenosis. There was mild regurgitation. Pulmonary artery: ?? Pulmonary systolic pressure was within the normal range, in the range of 30mm Hg to 35mm H g. Right atrium: ??The atrium was normal in size. Pericardium: ??There was no pericardial effusion. Systemic veins: Inferior vena cava: The vessel was alondra l in size. Baseline ECG: ?? Normal sinus rhythm. Measurements Left ventricle ? Value ?06/25/2015 Reference LV ID, ED, PLAX ?5.1 ?? cm ? 3.5 - 6.0 LV ID, ES, PLAX ?3.2 ?? cm ? 2.1 - 4.0 ?[facility] ?[facility] [address] [place] [address] ? [id number] ? E C H O C A R D I O G R A M ? R E P O R T NAME: NOHEMY GARCIA ?: 51 ? LOCATION: CARD ? TELEPHONE: [phone] ?MR#: [id number] ? LV PW thickness, ED, PLAX ?1.0 ?? cm ? LV end-diastolic volume, 1-p ? 94 ?ml ? A2C LV ejection fraction, 1-p ?68 ?% ? A2C LV end-diastolic volume, 1-p ? 95 ?ml ? 103 ? A4C LV ejection fraction, 1-p ?54 ?% ?58 ? A4C LV e', lateral ? 0.116 m/sec ?? LV E/e', lateral ? 5 ? LV e', medial ?0.069 m/sec ??0.12 ? LV E/e', medial ?8 ?4 ? LV e', average ? 0.093 m/sec ?? LV E/e', average ? 6 ? Ventricular septum ? Value ?06/25/2015 Reference IVS thickness, ED, PLAX ?1.1 ?? cm ? Aorta ?Value ?06/25/2015 Reference Aortic root ID ? 4.7 ?? cm ? Ascending aorta ID, A-P ?4.2 ?? cm ? Ascending aorta ID, A-P, S ? 4.1 ?? cm ? Left atrium ?Value ?06/25/2015 Reference LA ID, A-P, ES ? 3.2 ?? cm ? LA ID/bsa, A-P ? 1.7 ?? cm/m S 2 <=2.2 LA area, ES, A4C ? 14.9 ??cm S 2 ?? 15.7 ? 8.8 - 23.4 LA area, ES, A2C ? 21 ?cm S 2 ?? LA volume, ES, 2-p ? 54 ?ml ? LA volume/bsa, ES, 2-p ? 29 ?ml/m S 2 LA/aortic root ratio ? 0.68 ? Mitral valve ? Value ?06/25/2015 Reference Mitral E-wave peak velocity ?0.55 ??m/sec ??0.44 ? Mitral A-wave peak velocity ?0.43 ??m/sec ??0.54 ? Mitral deceleration time ? 183 ?? ms ? 272 ?150 - 230 Mitral E/A ratio, peak ? 1.3 ?0.81 ? Tricuspid valve ?Value ?06/25/2015 Reference Tricuspid regurg peak ?2.5 ?? m/sec ??2.2 ? velocity Tricuspid peak RV-RA ? 24.2 ??mm Hg ??19.7 ? gradient Tricuspid maximal regurg ? 2.46 ??m/sec ??2.22 ? velocity, PISA Right atrium ? Value ?06/25/2015 Reference RA area, ES, A4C ? 15 ?cm S 2 ?? 8.3 - 19.5 Legend: (L) ??and ??(H) ??michael values outside sp ecified reference range. ?[facility] ?[address] [place], [place] [address] ? [id number] ? E C H O C A R D I O G R A M ? R E P O R T NAME: NOHEMY GARCIA ?: 51 ? LOCATION: CARD ? TELEPHONE: [phone] ?MR#: [id number] ? I have personally reviewed the images an d have reviewed and edited the reported findings. Electronically signed by Huber Gonzalez 09/08/2017 14:50 Procedure Note Huber Gonzalez MD - 05/12/2019 [facility] [address] [place], [place] [address] [id number] E C H O C A R D I O G R A M R E P O R T NAME: NOHEMY GARCIA : 51 LOCA TION: CARD TELEPHONE: [phone] MR#: [id number] ACC T#: [id number] *[facility]* *[facility]* [address] [place] [address] Date of study: 09/08/2017 Transthoracic Echocardiography M-mode, complete 2D, complete spectral D oppler, and color Doppler *STUDY CONCLUSIONS* Summary: 1. Left ventricle: The cavity size was n ormal. Wall thickness was normal. Systolic function was normal. T he estimated ejection fraction was 60-65%. Wall motion was normal; the re were no regional wall motion abnormalities. 2. Aortic valve: Trileaflet; normal thic kness leaflets. There was trivial regurgitation. 3. Aorta: The aorta was moderately dilat ed. Aortic root diameter: 4.7cm. Ascending aortic AP diameter: 4.2cm. 4. Mitral valve: There was mild regurgit ation. 5. Right ventricle: The cavity size was normal. Wall thickness was normal. Systolic function was normal. *PATIENT PRESENTATION* Height: 177.8cm ((70in) ) S/D Pressure: 161 / 82 Weight: 70.3kg ((154.7lb) ) BSA: 1.86m S 2 Test start time: 01:56 PM. Test stop time: 02:35 PM. ORDERING Manny Moore MD REFERRING Manny Moore MD FORMING MACHINE UPKEEP MECHANIC HELPER Kristal Obregon PERFORMING [facility] *PROCEDURE DATA* Procedure information: The patient was i dentified by two identifiers. This study was interpreted by [facility]. Pertinent images and digital data are archived for permanent storage and are available for subsequent [facility] [address] [place], [place] [address] [id number] E C H O C A R D I O G R A M R E P O R T NAME: NOHEMY GARCIA : 51 LOCA TION: CARD TELEPHONE: [phone] MR#: [id number] [facility] T#: [id number] review. Comparison was made to the study of June 2015. Study status: Routine. Transthoracic echocardi ography. M-mode, complete 2D, complete spectral Doppler, and color Dop pler. A Transthoracic Echocardiogram was performed. Scanning w as performed from the parasternal, apical, subcostal, and supr asternal notch acoustic windows. Images were obtained using a [facility] IE33 1 cardiac ultrasound machine. Image quality was adequate. Study comple tion: The patient tolerated the procedure well. There were no compli cations. *INDICATIONS AND HISTORY* Indications: AI *CARDIAC ANATOMY* Left ventricle: The cavity size was norm al. Wall thickness was normal. Systolic function was normal. The estima maria guadalupe ejection fraction was 60-65%. Wall motion was normal; there we re no regional wall motion abnormalities. Diastolic parameters were normal. Aortic valve: Trileaflet; normal thickne ss leaflets. Mobility was not restricted. Doppler: Transvalvular veloc ity was within the normal range. There was no stenosis. There was trivial regurgitation. Aorta: The aorta was moderately dilated. Mitral valve: Structurally normal valve. Mobility was not restricted. Doppler: Transvalvular veloc ity was within the normal range. There was no evidence for stenosi s. There was mild regurgitation. Left atrium: The atrium was normal in si ze. Right ventricle: The cavity size was nor mal. Wall thickness was normal. Systolic function was normal. Pulmonic valve: Structurally normal valv e. Doppler: Transvalvular velocity was within the normal range. Th ere was no evidence for stenosis. There was trivial regurgitatio n. Tricuspid valve: Structurally normal khurram ve. Doppler: Transvalvular velocity was within the normal range. Th ere was no evidence for stenosis. There was mild regurgitation. Pulmonary artery: Pulmonary systolic pre ssure was within the normal range, in the range of 30mm Hg to 35mm H g. Right atrium: The atrium was normal in s ize. Pericardium: There was no pericardial ef fusion. Systemic veins: Inferior vena cava: The vessel was alondra l in size. Baseline ECG: Normal sinus rhythm. Measurements Left ventricle Value 06/25/2015 Referen ce LV ID, ED, PLAX 5.1 cm 3.5 - 6.0 LV ID, ES, PLAX 3.2 cm 2.1 - 4.0 [facility] [address] [place], [place] [address] [id number] E C H O C A R D I O G R A M R E P O R T NAME: NOHEMY GARCIA Romulo : 51 LOCA TION: CARD TELEPHONE: [phone] MR#: [id number] [facility] T#: [id number] LV PW thickness, ED, PLAX 1.0 cm ------ ---- LV end-diastolic volume, 1-p 94 ml ---- ------ A2C LV ejection fraction, 1-p 68 % -------- -- A2C LV end-diastolic volume, 1-p 95 ml 103 A4C LV ejection fraction, 1-p 54 % 58 ----- ----- A4C LV e', lateral 0.116 m/sec - --------- LV E/e', lateral 5 --------- - LV e', medial 0.069 m/sec 0.12 -------- -- LV E/e', medial 8 4 LV e', average 0.093 m/sec - --------- LV E/e', average 6 --------- - Ventricular septum Value 06/25/2015 Ref erence IVS thickness, ED, PLAX 1.1 cm -------- -- Aorta Value 06/25/2015 Reference Aortic root ID 4.7 cm ------ ---- Ascending aorta ID, A-P 4.2 cm -------- -- Ascending aorta ID, A-P, S 4.1 cm ----- ----- Left atrium Value 06/25/2015 Reference LA ID, A-P, ES 3.2 cm ------ ---- LA ID/bsa, A-P 1.7 cm/m S 2 <=2.2 LA area, ES, A4C 14.9 cm S 2 15.7 8.8 - 23.4 LA area, ES, A2C 21 cm S 2 - --------- LA volume, ES, 2-p 54 ml --- ------- LA volume/bsa, ES, 2-p 29 ml/m S 2 ---- ------ LA/aortic root ratio 0.68 -- -------- Mitral valve Value 06/25/2015 Reference Mitral E-wave peak velocity 0.55 m/sec 0.44 Mitral A-wave peak velocity 0.43 m/sec 0.54 Mitral deceleration time 183 ms 272 150 - 230 Mitral E/A ratio, peak 1.3 0.81 ------- --- Tricuspid valve Value 06/25/2015 Refere nce Tricuspid regurg peak 2.5 m/sec 2.2 --- ------- velocity Tricuspid peak RV-RA 24.2 mm Hg 19.7 -- -------- gradient Tricuspid maximal regurg 2.46 m/sec 2.2 2 velocity, PISA Right atrium Value 06/25/2015 Reference RA area, ES, A4C 15 cm S 2 8 .3 - 19.5 Legend: (L) and (H) michael values outside specifie d reference range. [facility] [address] [place], [place] [address] [id number] E C H O C A R D I O G R A M R E P O R T NAME: NOHEMY GARCIA Romulo : 51 LOCA TION: CARD TELEPHONE: [phone] MR#: [id number] [facility]#: [id number] I have personally reviewed the images an d have reviewed and edited the reported findings. Electronically signed by Huber Gonzalez 09/08/2017 14:50 Performing Organization Address City/State/ZIP Code Phon e Number [facility] documented in this encounter Visit Diagnoses Not on filedocumented in this encounter Care Teams Drilling Fluids Specialist Relationship Specialty Start Date End Date Renee Corcoran NP PCP - General 06/27/16 01/16/19 Uriah Davis MD PCP - General 01/17/19 07/12/21 Tho Genao PCP - General [facility] Medicine [facility] 07/13/[address] [address] Shelton Smith, Cardiovascular Disease [address] [place] [phone] documented as of this encounter
--- OUTSIDE RECORDS SUMMARY | 2022-02-07 01:33 | XMS_ITS | Encounter Summary ---
:1955 Author Organization [facility] Address [address] [place] [address] Care Team Providers Name Role Phone NashDanish Primary Care Provider Reason for Visit Reason Comments Atrial Fibrillation 2 weeks post ablation, no ep isodes since, however in the last couple of days he has had a couple of sharp stabbing pains in his left mid chest, lasts ab out a minute. The 2nd time the pain put him right onto the floor ! This was yesterday morning and the 1st one happened the previou s night. Doesn't feel strong enough to do things yet but says it usually takes him 3 weeks. Encounter Details Date Type Department Care Team Description 10/22/2012 Office Visit [facility] Rex Hendricks ( [facility]) Cardiology - Sayra Akers MD (Primary Dx) 62 Sayra Sanchez [address], [facility] Level [address] [place] [address] (Wo rk) Social History Tobacco [...] Sign Reading Time Taken Comments Blood Pressure 126/88 10/22/2012 1414 EDT Pulse 80 10/22/2012 1414 EDT Temperature - - Respiratory Rate - - Oxygen Saturation - - Inhaled Oxygen Concentration - - Weight 68 kg (150 lb) 10/22/2012 1414 EDT Height 177.8 cm (5' 10) 10/22/2012 1414 EDT Body Mass Index 21.52 10/22/2012 1414 EDT documented in this encounter Functional Status Cognitive Status Response Date of Assessment Because of a physical, mental, or emotional condition, do Ye s 10/09/2012 you have serious difficulty concentrating, remembering, or making decisions? (5 years old or older) documented as of this encounter Discharge Disposition Disposition Code Departure Means Destination Auto Discharge documented in this encounter Progress Notes Rex Hendricks MD - 10/22/2012 1548 EDT Subjective: Patient ID: Braulio Garcia is an 56 y.o. male. Chief Complaint Patient presents with ??? Atrial Fibrillation 2 weeks post ablation, no episodes since, however in the last couple of days he has had a couple ofsharp stabbing pains in his left mid chest, lasts about a minute. The 2nd time the pain put him right onto the floor! This was yesterday morning and the 1st one happened the previous night. Doesn't feel strong enough to do things yet but says it usually takes him 3 weeks. ZEB Somers comes in for followup two weeks following his most recent ablation, he has been doing well. He is feeling somewhat fatigued as always after his ablations, has not had any palpitations, has been walking but has not started running Yet. Denies any cough, sore throat, fevers, chills, night sweats orbleeding or pain at his catheter access sites. He did have an episode of very sharp, left-sided chest pain that lasted less than a minute, does not have associated pain with deep breath and no exertional squeezing, has not had it since. Patient Active Problem List Diagnoses ??? A-fib [...] Prior to Visit Medication Sig Dispense Refill ? ? warfarin (COUMADIN) 4 mg tablet Take 1 Tab by mouth at bedtime. Take as directed - 5 mg on 10/10 & 10/12, 4 mg on 10/11, 10/13, & 10/14 Then as directed by Valerie Indications: ATRIAL FIBRILLATION 30 Tab 0 ??? metoprolol (LOPRESSOR) 25 mg tablet Take 25 mg by mouth 2 times daily. ??? Multivitamins with Minerals Tab Take 1 [...] Only ROS - See HPI Objective: BP 126/88 Pulse 80 Ht 177.8 cm (70) Wt 68.04 kg (150 lb) BMI 21.52 kg/m2 Physical Exam He is alert and oriented x3, cranial nerves are grossly intact. His lungs are clear. He has a normalS1 and S2 without murmurs, rubs or gallops. His jugular veins are flat at 90 degrees. Carotid upstrokes are brisk without bruit. He has no clubbing, cyanosis or edema and 2+ pulses in his extremities. Assessment: Bill and I met for 20 minutes, 15 of which was spent on counseling. I am not entirely sure what caused the sharp chest pain, but I do not think it is cardiac in nature. I think things are coming along just fine and would make no changes in his medical regimen and he will follow up at 6 months. Coumadin will be continued until he reaches the 3-month michael. Plan: There are no diagnoses linked to this encounter. Rex Hendricks MD documented in this encounter Plan of Treatment Upcoming Encounters Date Type Specialty Care Team Description 09/13/2022 Office Visit Cardiology Shelton Smith MD [address] [place] [address] [address] [place] [address] (Wo rk) documented as of this encounter Visit Diagnoses Diagnosis A-fib (HCC-CMS) (HCC) - Primary Atrial fibrillation documented in this encounter Discontinued Medications Medication Sig Discontinue Reason Start Date End Date pantoprazole (PROTONIX) 40 Take 1 Tab by 10/10/2012 10/22/2012 mg tablet mouth daily. documented as of this encounter Care Teams Back Sewer Relationship Specialty Start Date End Date Danish Cao DO PCP - General 11/26/08 06/26/[address] [place] [address] documented as of this encounter
--- OUTSIDE RECORDS SUMMARY | 2022-02-07 01:33 | XMS_ITS | Encounter Summary ---
:1955 Author Organization [facility] Address [address] [place] [address] Care Team Providers Name Role Phone Danish Cao DO Primary Care Provider Encounter Details Date Type Department Care Team Description 12/10/2012 Anti-coag visit [facility] Valerie Pitt RN Cardiology - [address] [place] [phone] Social History Tobacco Use Types Packs/Day [...] encounter Progress Notes Keaton Manriquez MD - 12/10/2012 1664 EDT Keaton Manriquez MD Valerie Leyva RN - 12/10/2012 1438 EDT Dose change. Message left for pt w/ instructions and requested to call back to report message received. documented in this encounter Plan of Treatment Upcoming Encounters Date Type Specialty Care Team Description 09/13/2022 Office Visit Cardiology Shelton Smith MD [address] [place] [address] [address] [place] [address] (Wo rk) documented as of this encounter Procedures Procedure Name Priority Date/Time Associated Diagnosis Comme nts PROTIME Routine 12/10/2012 Results for thi s procedure are in the resu lts section. documented in this encounter Results PROTIME (12/10/2012) Pathologist Sig nature Protime, External [facility] INR, External [address] [facility] Specimen Blood specimen (specimen) Performing Organization Address City/State/ZIP Code Phon e Number [facility] documented in this encounter Visit Diagnoses Not on filedocumented in this encounter Care Teams Lap Polisher Relationship Specialty Start Date End Date Danish Cao DO PCP - General 11/26/08 06/26/16 [address] [place] [address] documented as of this encounter
--- OUTSIDE RECORDS SUMMARY | 2022-02-07 01:33 | XMS_ITS | Encounter Summary ---
:[address] [facility] Address [address] [place] [address] Care Team Providers Name Role Phone Uriah Davis MD Primary Care Provider Reason for Visit Cardiology (Routine) - Specialty Report Received Specialty Diagnoses / Procedures Referred By Contact Refer red To Contact Diagnoses Encounter for adjustment and management of other part of cardiac pacemaker Shelton Smith MD Procedures CARDIAC IMPLANT CHECK - IN CLINIC [address] [facility] [address] [place] [address] Referral ID Status Reason Start Date Expiration Date Visits V isits Requested Authorized [id number] Specialty 05/12/2019 1 1 Report Received Encounter Details Date Type Department Care Team Description 09/20/2019 Ancillary Procedure [facility] - Encounter for [facility] Cardiology Clin ic adjustment and [address] [facility] [place] [address] part of cardiac [phone] pacemaker Social History Tobacco Use Types Packs/Day Years [...] Office Visit Cardiology Shelton Smith MD [address] [place] [address] [address] [place], [place] [address] (Wo rk) documented as of this encounter Procedures Procedure Name Priority Date/Time Associated Diagnosis Comme nts CARDIAC IMPLANT Routine 09/20/2019 9:58 EST Encounter for Resu lts for this CHECK - IN CLINIC adjustment and procedur e are in management of other the resu lts part of cardiac section. pacemaker documented in this encounter Results CARDIAC IMPLANT CHECK - IN CLINIC - LOOP RECORDER (ILR) (09/20/2019 9:58 EST) Specimen Narrative DEVICECHECK - 09/20/2019 9:58 EST Refer to same day OV for full details Procedure Note Maryellen Pantoja APRN - 09/20/2019 Refer to same day OV for full details Performing Organization Address City/State/ZIP Code Phon e Number [facility] documented in this encounter Visit Diagnoses Diagnosis Encounter for adjustment and management of other part of cardiac pacemaker documented in this encounter Care Teams Teacher Of The Deaf/Hard Of Hearing Relationship Specialty Start Date End Date Uriah Davis MD PCP - General 01/17/19 07/12/21 documented as of this encounter
--- OUTSIDE RECORDS SUMMARY | 2022-02-07 01:33 | XMS_ITS | Encounter Summary ---
:1955 Author Organization [facility] Address [address] [place] [address] Care Team Providers Name Role Phone Renee Corcoran COSMETICS AND TOILETRIES SALESPERSON Primary Care Provider Reason for Visit Reason Onset Date Comments Referral Request 08/26/[address] Leandro gallego Encounter Details Date Type Department Care Team Description 08/26/2016 Telephone [facility] Golden Borrego Refer ral Request Cardiothoracic Surgery - MD Danita (Referral to Dr. Hernandez [place] [address] [facility]) [id number] [place] [address] [phone] Social History Tobacco Use Types Packs/Day Years [...] or older) documented as of this encounter Miscellaneous Notes Telephone Encounter - Olamide Saenz - 08/26/2016 1213 EST Per review with Dr. Borrego, patient scheduled for consultation on 08/31/16 at 11:45 am. Patient notified of appointment. elephone Encounter - Olamide Saenz - 08/26/2016 1157 EST CARDIAC SURGERY REFERRAL INFORMATION REASON PATIENT NEEDS TO BE SEEN / DIAGNOSIS Aortic Root Dilatation BARBER SHOP OPERATOR OR PROVIDER REQUESTING REFERRAL: Dr. Manny Moore BARBER SHOP OPERATOR PERFORMING CARDIAC CATH AND DATE PERFORMED: Not done BARBER SHOP OPERATOR THAT WILL BE FOLLOWING THE PATIENT: Dr. Manny Moore HAS PATIENT HAD CARDIAC SURGERY IN PAST: IF SO, NAME OF SURGEON: PATIENT'S MEDICAL STATUS: STABLE OR UNSTABLE: stable STATUS: ELECTIVE, ELECTIVE CONSULT, INPATIENT, INPATIENT TRANSFER OR INPATIENT CONSULT Elective PRIMARY CARE PROVIDER: Dr. Renee Corcoran WHICH SURGEON HAS BEEN REQUESTED OR IS IT FIRST AVAILABLE SURGEON? Dr. Borrego ANY OTHER INFORMATION YOU WOULD LIKE US TO KNOW? This Referral is routed to the following Staff: Requested Surgeon, Dr. Borrego, both [facility]'s, Nurse yes If this is a Consult Only, this Form is routed to: On-Call Surgeon, Both [facility]'s, Nurse yes In addition to routing the Form the following occurs: Elective Referrals given by the SCOA to the Surgeon same day for review and treatment plan yes Inpatient Referrals, Transfers and Inpatient Consults verbally communicated by the SCOA to the Surgeon at the time the Referral is called in n/a STOP HERE AND GET REMAINING INFORMATION BY CONTACTING THE PROVIDER'S OFFICE AND/OR HOSPITAL UNLESS PROVIDER VOLUNTEERS THE INFORMATION TO YOU THEN IT CAN BE ADDED BELOW. OTHER PROVIDERS THAT FOLLOW THIS PATIENT IF ANY: DIABETES YES OR NO: RENAL DISEASE YES OR NO: DISABILITIES SUCH WHEEL CHAIR BOUND, AMPUTEE AND OTHER CHRONIC ILLNESSES? LV WALL MOTION NORMAL, EJECTION FRACTION YES OR NO: VEIN STRIPPING HISTORY: CAROTID DISEASE: OTHER MORBIDITIES (ILLNESSES): Atrial fib s/p ablation x4 CURRENT IV MEDS IF INPATIENT: IF INPATIENT DID THE PATIENT RECEIVE PLAVIX FOR THE CARDIAC CATHETERIZATION: HAS CARDIAC CATH BEEN COMPLETED? no DATE COMPLETED: HAS ECHO BEEN COMPLETED? no DATE COMPLETED: HAS EKG BEEN COMPLETED? no DATE COMPLETED: HAS CT SCAN BEEN COMPLETED IF ANEURYSM OR MASS? CTA of chest on 06/29/16 DATE COMPLETED: RECENT LABS COMPLETED? no HAVE ANY OTHER TESTS BEEN COMPLETED AND DATES? CXR at [facility] on 08/12/16 INFORMATION HAS BEEN REQUESTED FROM PROVIDER OFFICE TO BE FAXED TO OUR OFFICE IF ELECTIVE REFERRAL. Yes or No: Medical records received from Dr. Manny Moore's office IMAGING STUDIES SUCH CT SCAN, CHEST X-RAY, ECHOCARDIOGRAM, CARDIAC CATHETERIZATION HAVE BEEN PUSHED OVER TO [facility] OR DISK IS REQUESTED FOR OVERNIGHT [employer] FOR THOSE CENTERS THAT DON'T PUSH OVER: Spoke with Tamraa at [facility] - CXR to be pushed to our system. NOTE: REFER TO PRE-OP/CONSULT CHECKLIST FOR COMPLETE INFORMATION THAT WILL BE REQUESTED PRIOR TO APPOINTMENT BY THE CLINICAL LIFE CARE PLANNER IF ELECTIVE SURGERY OR CONSULT THIS REFERRAL NOTE WILL BE PRINTED OUT FOR THE PATIENT'S CHART IF ELECTIVE CASE WITH CHECKLIST TO BECOMPLETED Revised 01/06 /KIN documented in this encounter Plan of Treatment Upcoming Encounters Date Type Specialty Care Team Description 09/13/2022 Office Visit Cardiology Shelton Smith MD [address] [place] [address] [address] [place], [place] [address] (Wo rk) documented as of this encounter Visit Diagnoses Not on filedocumented in this encounter Care Teams Distribution Center Assistant Relationship Specialty Start Date End Date Renee Corcoran NP PCP - General 06/27/16 01/16/19 documented as of this encounter
--- OUTSIDE RECORDS SUMMARY | 2022-02-07 01:33 | XMS_ITS | Encounter Summary ---
:1955 Author Organization [facility] Address [address] [place] [address] Care Team Providers Name Role Phone Renee Corcoran CONCRETE BATCH PLANT OPERATOR Primary Care Provider Reason for Visit Reason Onset Date Comments Results 06/30/2017 BUN and Creatining r esults Encounter Details Date Type Department Care Team Description 06/30/2017 Telephone [facility] Vipin Bliss Results (BUN and Cardiothoracic Surgery - MD [place] Creatining results) [address] [phone] [place], [address] [place] [address] (Wo rk) Social History Tobacco [...] Notes Telephone Encounter - Olamide Saenz - 06/30/2017 1415 EST BUN and creatinine results received from [facility]... BUN - 26 Creatinine - 1.04 Estimated GFR >= 60.[address] Bliss for review. Copy faxed to CT department. Copy sent to HIM for scanning. documented in this encounter Plan of Treatment Upcoming Encounters Date Type Specialty Care Team Description 09/13/2022 Office Visit Cardiology Shelton Smith MD [address] [place] [address] [address] [place] [phone] (Wo rk) documented as of this encounter Visit Diagnoses Not on filedocumented in this encounter Care Teams City Library Director Relationship Specialty Start Date End Date Renee Corcoran NP PCP - General 06/27/16 01/16/19 documented as of this encounter
--- OUTSIDE RECORDS SUMMARY | 2022-02-07 01:33 | XMS_ITS | Encounter Summary ---
:1955 Author Organization [facility] Address [address] [place] [address] Care Team Providers Name Role Phone Uriah Davis MD Primary Care Provider Encounter Details Date Type Department Care Team Description 07/01/[address] [facility] - Jasiel Banegas, Atr ial fibrillation, [facility] Cardiology Clin ic HANDLE ASSEMBLER unspecified type [address] ([facility]) (Primary Dx) [place] [address] [address] [place] [address] Social History Tobacco Use Types Packs/Day Years [...] Office Visit Cardiology Shelton Smith MD [address] [facility] [address] [place], [place] [phone] (Wo rk) documented as of this encounter Procedures Procedure Name Priority Date/Time Associated Diagnosis Comme nts CARDIAC IMPLANT Routine 07/01/2019 17:02 Atrial fibrillation, Results for this CHECK - REMOTE EST unspecified type procedure are in MONITOR ([facility]) the results section. documented in this encounter Results CARDIAC IMPLANT CHECK - REMOTE - LOOP RECORDER (ILR) (07/01/2019 17:02 EST) Specimen Narrative POINT OF CARE [facility] - 07/01/2019 17:[address] Reviewed remote transmission for Implanted Loop Recorder. Device is functioning normally. Please see scanned documents for details. Procedure Note Macy Mina APRN - 07/01/2019 Reviewed remote transmission for Implant ed Loop Recorder. Device is functioning normally. Please see scanned documents for details. Performing Organization Address City/State/ZIP Code Phon e Number [facility] POINT OF CARE POINT OF CARE [facility] documented in this encounter Visit Diagnoses Diagnosis Atrial fibrillation, unspecified type (H CC-CMS) ([facility]) - Primary documented in this encounter Care Teams Belt Maker Relationship Specialty Start Date End Date Uriah Davis MD PCP - General 01/17/19 07/12/21 documented as of this encounter
--- OUTSIDE RECORDS SUMMARY | 2022-02-07 01:33 | XMS_ITS | Encounter Summary ---
:1955 Author Organization [facility] Address [address] [place] [address] Care Team Providers Name Role Phone Uriah Davis MD Primary Care Provider Reason for Referral Other (Routine) - Closed Specialty Diagnoses / Procedures Referred By Contact Refer red To Contact Diagnoses Thoracic aortic aneurysm without rupture (HCC-CMS) ([facility]) Solomon Mayer PA-C Procedures CT ANGIO CHEST [address] [phone] Referral ID Status Reason Start Date Expiration Date Visits Requ ested Visits Authorized [id number] Closed 06/28/2019 08/26/2019 1 1 Reason for Visit Other (Routine) - Closed Specialty Diagnoses / Procedures Referred By Contact Refer red To Contact Diagnoses Thoracic aortic aneurysm without rupture (HCC-CMS) ([facility]) Solomon Mayer PA-C Procedures CT ANGIO CHEST [address] [phone] Referral ID Status Reason Start Date Expiration Date Visits Requ ested Visits Authorized [id number] Closed 06/28/2019 08/26/2019 1 1 Encounter Details Date Type Department Care Team Description 07/23/2019 - [facility] Encounter [facility] Thoraci c aortic 07/24/[address] aneurysm withou t Outpatient - Main rupture (H CC-CMS) [place] [address] Social History Tobacco Use Types Packs/Day Years [...] making decisions? documented as of this encounter Medications at Time of Discharge Medication Sig Dispensed Refills Start Date End Date ascorbic acid (VITAMIN C) Take 500 mg by 0 500 mg tablet mouth daily. Multivitamins with Minerals Take 1 Tab by 0 Tab mouth daily. aspirin 81 mg EC tablet Take 81 mg by 0 09/24/2019 mouth daily. DILTiazem (CARDIZEM) 30 mg Take 30 mg by 0 01/29/2020 tablet mouth 2 times daily. lisinopril (PRINIVIL, Take 5 mg by mouth 0 11/26/2019 ZESTRIL) 5 mg tablet 3 times daily. 2 tabs in the morning, 1 tab at night. documented as of this encounter Discharge Disposition Disposition Code Departure Means Destination Home or Self Care documented in this encounter Plan of Treatment Upcoming Encounters Date Type Specialty Care Team Description 09/13/2022 Office Visit Cardiology Shelton Smith MD [address] [place] [address]A [address] [place] [address] (Wo rk) documented as of this encounter Procedures Procedure Name Priority Date/Time Associated Diagnosis Comme nts CT ANGIO CHEST Routine 07/23/2019 8:58 EST Thoracic aortic Res ults for this aneurysm without procedure a re in the rupture ([facility]) results se ction. documented in this encounter Results CT ANGIO CHEST (07/23/2019 8:58 EST) Anatomical Region Laterality Modality Chest Computed Tomography Specimen Impressions [facility] - 07/23/2019 9:21 EST 1. ??Stable dilated ascending aorta. 2. ??Loop recorder in the left chest wal l. 3. ??Scattered small foci of linear scar ring or atelectasis in the lungs. Narrative [facility] - 07/23/2019 9:[address] ANGIO CHEST ??07/23/2019 8:40 AM Clinical History/Comments: Thoracic aortic aneurysm (TAA), known, f ollow up Technique: A contrast-enhanced retrospectively ECG- gated CT acquisition was performed on a multidetector row scanner beginning at the apices inferiorly to the upper abdomen. ??Intravenous contrast was administered as 80-100 cc of 350-370 mg% nonionic co ntrast at an injection rate of 4 cc/second, with scan acquisition timed by the use of bolus-tracking software targeted to the proximal descending aorta. ??Scans w ere reconstructed in a soft tissue algor ithm at 75% ??of the cardiac cycle with 2.5-3.0 mm thick scans reconstructed at overlapping 2.0 mm intervals and retrospectively reconstructed with 0.9 mm thickne ss at 0.45 mm intervals, all in a soft t issue algorithm for three-dimensional reconstruction and interpretation on a dedicated PACS workstation. ??Coronal, sagittal and 3-D reformations of the aorta were performed. Exam description: ??CTA of the chest Comparison: 07/07/2017. Findings: Opacification of the aorta is good. No d issection or other acute aortic abnormality identified. The dilated ascending aorta is stable compared to the prior examination (measurements below are re-measure d in a similar location on the prior alexandra dy - these may differ slightly from the prior measurements). Maximum dimension: Aortic root at sinuses of Valsalva: 4.8 cm Sinotubular junction: ??4.4 cm Ascending aorta: ??4.1 cm Aortic Arch: ??3.3 cm Descending thoracic aorta: ??3.1 cm Lower neck: Stable small thyroid nodules . Chest wall soft tissues: Loop recorder i n the left chest wall. Mediastinum and rubia: No enlarged medias tinal or hilar lymph nodes. Heart and mediastinal vasculature: ??No abnormalities. The coronary arteries are well opacified and are normal (diminutive left circumflex coronary artery, with a large dominant right coronary artery). Large airways: ??No abnormalities. Lungs: ??Scattered small foci of linear scarring or atelectasis. No significant abnormalities. Pleura: No abnormalities. Upper abdomen (limited to upper abdomen, not optimized for abdominal imaging): No abnormalities. Bones: ??No significant abnormalities. Procedure Note Satish Arcos MD - 07/23/2019 CT ANGIO CHEST 07/23/2019 8:40 AM Clinical History/Comments: Thoracic aortic aneurysm (TAA), known, f ollow up Technique: A contrast-enhanced retrospectively ECG- gated CT acquisition was performed on a multidetector row scanner beginning at the apices inferiorly to the upper abdomen. Intravenous contrast was administered as 80-100 cc of 350-370 mg% nonionic contrast at an inje ction rate of 4 cc/second, with scan acquisition [...] Exam description: CTA of the chest Comparison: 07/07/2017. Findings: Opacification of the aorta is good. No d issection or other acute aortic abnormality identified. The dilated ascending aorta is stable compared to the prior examination (measurements below are re-measured in a similar location on the prior study - these may differ slightly from the prior measurements). Maximum dimension: Aortic root at sinuses of Valsalva: 4.8 cm Sinotubular junction: 4.4 cm Ascending aorta: 4.1 cm Aortic Arch: 3.3 cm Descending thoracic aorta: 3.1 cm Lower neck: Stable small thyroid nodules . Chest wall soft tissues: Loop recorder i n the left chest wall. Mediastinum and rubia: No enlarged medias tinal or hilar lymph nodes. Heart and mediastinal vasculature: No ab normalities. The coronary arteries are well opacified and are normal (diminutive left circumflex coronary artery, with a large dominant right coronary artery). Large airways: No abnormalities. Lungs: Scattered small foci of linear sc arring or atelectasis. No significant abnormalities. Pleura: No abnormalities. Upper abdomen (limited to upper abdomen, not optimized for abdominal imaging): No abnormalities. Bones: No significant abnormalities. IMPRESSION 1. Stable dilated ascending aorta. 2. Loop recorder in the left chest wall. 3. Scattered small foci of linear scarri ng or atelectasis in the lungs. Performing Organization Address City/State/ZIP Code Phon e Number [facility] documented in this encounter Visit Diagnoses Diagnosis Thoracic aortic aneurysm without rupture (HCC-CMS) (HCC) Thoracic aneurysm without mention of rup ture documented in this encounter Administered Medications Inactive Administered Medications - up to 3 most recent administrations Medication Order MAR Action Action Date Dose Rate Site iohexol (OMNIPAQUE 350) solution 100 Given 07/23/2019 8:59 EST 9 4 mL mL 100 mL, intravenous, Once in imaging, 1 dose, Starting on Mon07/23/19 at 0841, Until Mon07/23/19 at 0859, Routine documented in this encounter Orders Medications Ordered That Might Not Have Count Last Ord ered Date First Ordered Date Been Administered iohexol (OMNIPAQUE 350) solution 100 mL 1 07/23/20 19 documented in this encounter Care Teams Special Skills Officer Relationship Specialty Start Date End Date Uriah Davis MD PCP - General 01/17/19 07/12/21 documented as of this encounter
--- OUTSIDE RECORDS SUMMARY | 2022-02-07 01:33 | XMS_ITS | Encounter Summary ---
:1955 Author Organization [facility] Address [address] [place] [address] Care Team Providers Name Role Phone Uriah Davis MD Primary Care Provider Reason for Referral Other (Routine) - Closed Specialty Diagnoses / Procedures Referred By Contact Refer red To Contact Diagnoses Thoracic aortic aneurysm without rupture (HCC-CMS) ([facility]) Solomon Mayer, PA-Oz Procedures CT ANGIO CHEST [address] [place] [phone] Referral ID Status Reason Start Date Expiration Date Visits Requ ested Visits Authorized [id number] Closed 06/28/2019 08/26/2019 1 1 Encounter Details Date Type Department Care Team Description 06/05/2019 Orders Only [facility] Solomon Mayer, Thorac ic aortic Cardiothoracic Surgery PA-C aneurysm without - [facility] [address] [place] rupture (HCC-CMS) [address] [place] [address] (Primary Dx) [address] [phone] [address] (Wo rk) Social History Tobacco Use [...] Office Visit Cardiology Shelton Smith MD [address] [place] [address] [phone] (Wo rk) documented as of this encounter Results CT ANGIO CHEST (07/23/2019 8:58 EST) Anatomical Region Laterality Modality Chest Computed Tomography Specimen Impressions [facility] - 07/23/2019 9:21 EST 1. ??Stable dilated ascending aorta. 2. ??Loop recorder in the left chest wal l. 3. ??Scattered small foci of linear scar ring or atelectasis in the lungs. Narrative [facility] - 07/23/2019 9:21 [...] Organization Address City/State/ZIP Code Phon e Number [facility] documented in this encounter Visit Diagnoses Diagnosis Thoracic aortic aneurysm without rupture (HCC-CMS) (HCC) - Primary Thoracic aneurysm without mention of rup ture Thoracic aortic aneurysm without rupture (HCC-CMS) (HCC) Thoracic aneurysm without mention of rup ture documented in this encounter Care Teams Weighter Relationship Specialty Start Date End Date Uriah Davis MD PCP - General 01/17/19 07/12/21 documented as of this encounter
--- OUTSIDE RECORDS SUMMARY | 2022-02-07 01:33 | XMS_ITS | Encounter Summary ---
:1955 Author Organization [facility] Address [address] [place] [address] Care Team Providers Name Role Phone NashDanish bland DO Primary Care Provider Encounter Details Date Type Department Care Team Description 10/10/2012 Anti-coag visit [facility] Yehuda Manriquez MD Cardiology - [place] [address] [place] [address] (Wo rk) Social History Tobacco [...] documented as of this encounter Progress Notes Valerie Pitt RN - 10/11/2012 1420 EDT Instructions confirmed; Protime correlates w/ INR Gerald Sanchez - 10/10/2012 1028 EDT Pt's INR today is 2.9. Valerie Reynolds NP reports the pharmacist and a fellow changed the pt's dosing plan for last night from what we prescribed--pt only got 2 mg last night instead of 4 mg. Reviewed encounter with Valerie Pitt RN who advised pt should take the following dosing plan: take 5 mg Mon & Mon and 4 mg Kiah, Sat, Sun. Test again on Monday, 10/15. Contacted Grant Reynolds NP on M5 by text pageand reviewed result and instructions. She will give the pt instructions at discharge this mornign. Encounter routed to Valerie Pitt for sign off. documented in this encounter Plan of Treatment Upcoming Encounters Date Type Specialty Care Team Description 09/13/2022 Office Visit Cardiology Shelton Smith MD [address] [place] [address] [address] [place] [address] (Wo rk) documented as of this encounter Visit Diagnoses Not on filedocumented in this encounter Care Teams Head Banquet Waiter/Waitress Relationship Specialty Start Date End Date Danish Cao DO PCP - General 11/26/08 06/26/[address] [place] [address] documented as of this encounter
--- OUTSIDE RECORDS SUMMARY | 2022-02-07 01:33 | XMS_ITS | Encounter Summary ---
:1955 Author Organization [facility] Address [address] [place] [address] Care Team Providers Name Role Phone Danish Cao Russell DO Primary Care Provider Encounter Details Date Type Department Care Team Description 10/04/2012 Anti-coag visit [facility] Yehuda Manriquez MD Cardiology - [place] [address] [place] [address] (Wo rk) Social History Tobacco [...] encounter Progress Notes Omari Mckeon MD - 10/08/2012 1431 EDT Omari Mckeon MD Valerie Leyva RN - 10/05/2012 1456 EDT Instructions confirmed; Protime correlates w/ INR Gerald Sanchez - 10/04/2012 1503 EDT Pt's INR today is 2.5. Reviewed encounter with Valerie Pitt RN who advised pt should take the following dosing plan: take 4 mg Kiah, Sat & Sun and 5 mg Fri. Test again on Mon, 10/08. Contacted pt byemail and reviewed result and instructions. Pt asked to reply to verify receipt and understanding ofsame. Encounter routed to Valerie Pitt for sign off. 10/05/12: Pt sent an email that he had not received instructions. Upon further review, we had his email address incorrect. Address corrected and 's email added. Pt took 5 mg last evening, so plan was altered. Pt will take 4 mg daily Fri, Sat & Sun and test Mon, 10/08. documented in this encounter Plan of Treatment Upcoming Encounters Date Type Specialty Care Team Description 09/13/2022 Office Visit Cardiology Shelton Smith MD [address] [place] [address] [phone] (Wo rk) documented as of this encounter Procedures Procedure Name Priority Date/Time Associated Diagnosis Comme nts PROTIME Routine 10/04/2012 8:20 EDT Results for this procedure are i n the results section . documented in this encounter Results PROTIME (10/04/2012 8:20 EDT) Pathologist Sig nature Protime, External [facility] INR, External 2.[address] [facility] Specimen Blood specimen (specimen) Performing Organization Address City/State/ZIP Code Phon e Number [facility] documented in this encounter Visit Diagnoses Not on filedocumented in this encounter Care Teams Laborer General Relationship Specialty Start Date End Date Danish Cao, DO PCP - General 11/26/08 06/26/[address] [address] documented as of this encounter
--- OUTSIDE RECORDS SUMMARY | 2022-02-07 01:33 | XMS_ITS | Encounter Summary ---
:1955 Author Organization [facility] Address [address] [place] [address] Care Team Providers Name Role Phone Danish Cao Russell DO Primary Care Provider Encounter Details Date Type Department Care Team Description 01/03/2013 Anti-coag visit [facility] Yehuda Manriquez MD Cardiology - [place] [address] [place] [address] (Wo rk) Social History Tobacco [...] encounter Progress Notes Omari Mckeon MD - 01/04/2013 1615 EDT Omari Mckeon MD Valerie matos, RN - 01/03/2013 1449 EDT No warfarin dose change. Left message for pt and advised pt to call back w/ questions and to confirmmessage received. documented in this encounter Plan of Treatment Upcoming Encounters Date Type Specialty Care Team Description 09/13/2022 Office Visit Cardiology Shelton Smith MD [address] [place] [address] [address] [place] [address] (Wo rk) documented as of this encounter Procedures Procedure Name Priority Date/Time Associated Diagnosis Comme nts PROTIME Routine 01/03/2013 9:52 EDT Results for this procedure are i n the results section . documented in this encounter Results PROTIME (01/03/2013 9:52 EDT) Pathologist Sig nature Protime, External [facility] INR, External 1.3 [facility] Specimen Blood specimen (specimen) Performing Organization Address City/State/ZIP Code Phon e Number [facility] documented in this encounter Visit Diagnoses Not on filedocumented in this encounter Care Teams Rn First Assistant Relationship Specialty Start Date End Date Danish Cao DO PCP - General 11/26/08 06/26/[address] [place] [address] documented as of this encounter
--- OUTSIDE RECORDS SUMMARY | 2022-02-07 01:33 | XMS_ITS | Encounter Summary ---
:1955 Author Organization [facility] Address [address] [place] [address] Care Team Providers Name Role Phone Danish Cao DO Primary Care Provider Reason for Visit Reason Onset Date Comments Appointment Related 05/29/2013 Encounter Details Date Type Department Care Team Description 05/29/2013 Telephone [facility] Kalpesh Quijano, Toby intment Related Cardiology - [place] STILES [address] [place] [address] Social History Tobacco Use Types Packs/Day [...] this encounter Miscellaneous Notes Telephone Encounter - Elena Manzanares LPN - 05/29/2013 [address] Quijano if patient can stop beta alfreda 48 hours prior to stress echo. He advised patient can stop it for 48 hour period. Informed Mike Lucas PSS. elephone Encounter - Radha Lucas - 05/29/2013 1402 EST Patient is scheduled to have stress echo at [facility] 06/04/13 @ 1:00, waiting to hear from Dr Quijano if it is ok for patient to be off beta blockers for 48hr prior. Then I will call and fax order. elephone Encounter - Renee Cheek - 05/29/2013 1105 EST Pt requesting a call back in regards to needing to schedule a stress echo at [facility]. Per pt, he was told he would have heard back about getting it scheduled today and he has yet to hear anything. documented in this encounter Plan of Treatment Upcoming Encounters Date Type Specialty Care Team Description 09/13/2022 Office Visit Cardiology Shelton Smith MD [address] [place] [address] [address] [place], [place] [phone] (Wo rk) documented as of this encounter Visit Diagnoses Not on filedocumented in this encounter Care Teams Youth Court Judge Relationship Specialty Start Date End Date Danish Cao DO PCP - General 11/26/08 06/26/16 [address] [place] [address] documented as of this encounter
--- OUTSIDE RECORDS SUMMARY | 2022-02-07 01:33 | XMS_ITS | Encounter Summary ---
:1955 Author Organization [facility] Address [address] [place] [address] Care Team Providers Name Role Phone Uriah Davis MD Primary Care Provider Reason for Visit Reason Onset Date Comments Appointment Related 08/08/2019 Encounter Details Date Type Department Care Team Description 08/08/2019 Telephone [facility] Vipin Bliss Appoint ment Related Cardiothoracic Surgery - MD Rogers [address] [phone] [facility] [address] [place] [address] (Wo rk) Social History Tobacco [...] this encounter Miscellaneous Notes Telephone Encounter - Ace Galindo MA - 08/08/2019 0850 EST Phone call to patient to remind of appointment on 08/12/19 at 08:45. Patient verbalized understandingand is aware of clinic location. documented in this encounter Plan of Treatment Upcoming Encounters Date Type Specialty Care Team Description 09/13/2022 Office Visit Cardiology Shelton Smith MD [address] [place] [address] [address] [place] [address] (Wo rk) documented as of this encounter Visit Diagnoses Not on filedocumented in this encounter Care Teams Warehouse Order Picker Relationship Specialty Start Date End Date Uriah Davis MD PCP - General 01/17/19 07/12/21 documented as of this encounter
--- OUTSIDE RECORDS SUMMARY | 2022-02-07 01:33 | XMS_ITS | Encounter Summary ---
:1955 Author Organization [facility] Address [address] [place] [address] Care Team Providers Name Role Phone Renee Corcoran DRUG CLERK Primary Care Provider Encounter Details Date Type Department Care Team Description 11/14/2016 Results Only Imaging [facility]- Unknown, SONIA Mercado MD [phone] Social History Tobacco Use Types Packs/Day Years [...] Office Visit Cardiology Shelton Smith MD [address] [place] [address]A [address] [place] [address] (Wo rk) Pending Results Name Type Priority Associated Diagnoses Date/Ti me OUTSIDE IMAGES - OTHER Imaging 11/14 7:39 EDT CHEST documented as of this encounter Visit Diagnoses Not on filedocumented in this encounter Care Teams Allergist/Pediatric Pulmonologist Relationship Specialty Start Date End Date Renee Corcoran, DRUG CLERK PCP - General 06/27/16 01/16/19 documented as of this encounter
--- OUTSIDE RECORDS SUMMARY | 2022-02-07 01:33 | XMS_ITS | Encounter Summary ---
:1955 Author Organization [facility] Address [address] [place] [address] Care Team Providers Name Role Phone Renee Corcoran WATCH CRYSTAL MOLDER Primary Care Provider Encounter Details Date Type Department Care Team Description 07/07/2017 Hospital Encounter [facility] - Beau Parrish, [facility] PA-C [address] [facility] [address] [place], [place] [phone] [place] [address] Pav[address], [address] [place] [address] (Wo rk) Social History Tobacco [...] making decisions? documented as of this encounter Discharge Diagnoses Diagnosis I77.810 Thoracic aortic ectasia-I77.810[ ICD-10-CM] documented in this encounter Medications at Time [...] Disposition Code Departure Means Destination Auto Discharge Home documented in this encounter Plan of Treatment Upcoming Encounters Date Type Specialty Care Team Description 09/13/2022 Office Visit Cardiology Shelton Smith MD [address] [place] [phone] (Wo rk) documented as of this encounter Visit Diagnoses Not on filedocumented in this encounter Care Teams Sustainable Agriculture Specialist Relationship Specialty Start Date End Date Renee Corcoran NP PCP - General 06/27/16 01/16/19 documented as of this encounter
--- OUTSIDE RECORDS SUMMARY | 2022-02-07 01:33 | XMS_ITS | Encounter Summary ---
:1955 Author Organization [facility] Address [address] [place] [address] Care Team Providers Name Role Phone Renee Corcoran WEB MARKETING MANAGER Primary Care Provider Reason for Visit Reason Comments New Patient Visit CONSULT AORTIC ROOT DILATION Encounter Details Date Type Department Care Team Description 08/31/2016 Office Visit [facility] Cardi[facility]acic Surgery - MD Danita aneurysm without [place] [address] rupture ([facility]) [address] [facility] [address] (Primary Dx) [place] [address] [place] [phone] Social History Tobacco Use Types Packs/Day [...] Sign Reading Time Taken Comments Blood Pressure 186/120 08/31/2016 1128 EST Pulse 80 08/31/2016 1128 EST right arm re g Temperature 36.7 ??C (98 ??F) 08/31/2016 1128 EST Respiratory Rate 12 08/31/2016 1128 EST Oxygen Saturation 98% 08/31/2016 1128 EST Inhaled Oxygen Concentration - - Weight 72.6 kg (160 lb) 08/31/2016 1128 EST Height 175.3 cm (5' 9) 08/31/2016 1128 EST Body Mass Index 23.63 08/31/2016 1128 EST documented in this encounter Functional Status [...] as of this encounter Patient Instructions Patient InstructionsOlamide Saenz - 08/31/2016 11:[address] Borrego, he would like to see you during the month of June in the year of 2016 with an Imaging Study and office visit that will be all on the same day. His Surgery Clinical Data Storage Specialist will contact you the month preceding the appointments to set these up. If you do not hear from the Surgical Clinical Data Storage Specialist during the month preceding your appointment, please michael your calendar and contact our office to set up your appointments. Our office number is or . Continue your regular follow-up with your Primary Care Doctor and any other Doctors that you normally follow with. Blood pressure control with health care maintenance is recommended with your Primary Care Doctor on a regular basis. If you have acute (sudden) pain in your back or chest, pressure, shortness of breath, dizziness, fainting (passing out), near passing out or sweating with any symptoms please contact your Doctor the same day for a treatment plan or to the Emergency Department by calling 911 in an Emergency. Thank you! documented in this encounter Progress Notes Golden Borrego MD - 08/31/2016 1145 EST This office note has been dictated. Golden santos MD - 08/31/2016 0000 EST [facility] CARDIOTHORACIC SURGERY NEW PATIENT EVALUATION - 08/31/2016 HISTORY OF PRESENT ILLNESS: This is a 60-year-old man who presents for surgical opinion related to aproximal thoracic aortic aneurysm. His cardiac history dates to a few years ago when he was treated for atrial fibrillation. In fact, he has undergone 4 ablation attempts to eradicate his AFib. On occasion in the past he has felt recurrent symptoms, but now senses that perhaps things are under better control. However, he probably will get an indwelling event monitor in the near future. He is currently maintained on Diltiazem. His cardiovascular history is also notable for periods of lightheadedness and fatigue. He was worked up for dysautonomia at several institutions, but this now is felt not to be contributing to symptoms. He continues to have episodic headaches and weakness. He describes wakingwith a headache 2 weeks ago, which was difficult to eradicate. This was associated with weakness andsome memory loss. He has been worked up with echocardiography and is noted to have normal ventricular function and mild aortic insufficiency. He has a dilated aortic root and ascending aorta. This was noted on an MRI scan in 2009, which revealed an ascending aorta measuring 3.5 cm and an aortic root measuring 4.1 cm. He has had [address] scans, one in May 2015, one in June 2016. Both showed enlargement from 2010, but were stable relative to each other. His aortic root measures 4.9 cm and his ascending aorta measures 4.2 cm. On occasion he feels chest pressure, which also seems to be associated with his headaches. 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 He measures his blood pressure at home, where it runs between 150 and 160 mmHg over 100 mmHg. He tells mewhen he rests he measures it and it normalizes. He saw Dr Smith yesterday, who increased his diltiazem from b.i.d. to t.i.d. dosing. 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 The remainder of his past history is essentially unremarkable. His medications include diltiazem and aspirin. Of note, he has not tolerated beta-blockers in the past. SOCIAL HISTORY: The patient lives with his in [facility], and remains quite active. Up until recently, he was running approximately 4 miles per day. 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 He does not use tobacco products and only rarely drinks alcohol. FAMILY HISTORY: Notable for coronary artery disease. His father had a myocardial infarction at a relatively young age. There is also a history of hypertension and atrial fibrillation. DRUG ALLERGIES: He has intolerance to AMIODARONE, ATENOLOL, FLECAINIDE and KEFLEX. REVIEW OF SYSTEMS: All systems reviewed and pertinent positives listed above, the remainder are negative. PHYSICAL EXAM: The patient weighs 73 kg, 175 cm tall. Blood pressure is 186/120 mmHg with heart rateof 80 and respiratory rate of 12. He is afebrile. Oxygen saturation on room air is 98%. On HEENT exam, pupils equal and reactive to accommodation. Extraocular movements intact. There is no scleral icterus. Oral mucous membranes are moist and dentition is intact. Neck soft, supple, nontender, with no adenopathy or mass. There is no thyromegaly or carotid bruits noted. On lung exam, he has equal breathsounds bilaterally with clear carlson. On precordial exam, he is in a regular rate and rhythm withoutmurmur, gallop or rub. Abdomen is flat with normoactive bowel sounds. He has 1+ radial pulses bilaterally and warm lower extremities. There is no edema, ecchymoses or varicosities noted. He is alert and oriented x3, with normal mentation, comprehension, and has 5/5 motor strength bilaterally. DIAGNOSTIC DATA: The patient's imaging studies are noted above. He has a moderate-sized aortic root aneurysm and dilated ascending aorta. This is associated with a trileaflet aortic valve, which is only mildly insufficient. IMPRESSION AND PLAN: At this point, he does not require surgical intervention. He will require closefollowup with serial CT scans. I would consider operation when his aorta approaches 5.5 cm or his aortic insufficiency worsens. The biggest concern is maintaining adequate blood pressure. Dr Smith isfollowing this closely and recently increased his diltiazem dose. The patient will follow up with [facility] in early September. I told him that I would recommend shooting for a systolic pressure of 130 orless consistently to prevent further aneurysmal dilatation. I also cautioned him against heavy lifting. We also discussed symptoms if they should occur related to the aorta such as severe chest pressure radiating to the back. He knows to call us or his physicians if this should occur. We will plan to see him in [address] scan. Golden Borrego MD 12 05 PM - Golden Borrego MD mn Dictation ID: [id number] cc: Renee Corcoran WEB MARKETING MANAGER, [address] [address] Shelton Smith MD, [facility] Cardiology [address] [place] [address], [facility], [place] [address] Manny Moore MD, [facility] - Cardiology [address] [place] [address], [address], [place], [place] documented in this encounter Plan of Treatment Upcoming Encounters Date Type Specialty Care Team Description 09/13/2022 Office Visit Cardiology Shelton Smith MD [address] [place] [address] [address] [place] [address] (Wo rk) documented as of this encounter Visit Diagnoses Diagnosis Thoracic aortic aneurysm without rupture (HCC-CMS) (HCC) - Primary Thoracic aneurysm without mention of rup ture documented in this encounter Historical Medications This list may reflect changes made after this encounter. Medication Sig Dispensed Refills Start Date End Date DILTiazem (CARDIZEM) 30 Take 30 mg by mouth 0 01/29/2020 mg tablet 2 times daily. added in this encounter Care Teams Chief Yeoman Relationship Specialty Start Date End Date Renee Corcoran NP PCP - General 06/27/16 01/16/19 documented as of this encounter
--- OUTSIDE RECORDS SUMMARY | 2022-02-07 01:33 | XMS_ITS | Encounter Summary ---
:1955 Author Organization [facility] Address [address] [place] [address] Care Team Providers Name Role Phone Uriah Davis MD Primary Care Provider Encounter Details Date Type Department Care Team Description 07/08/2019 Results Only [facility] - [facility] Unknow n, Provider, Lab - [facility] [address] [place] [address] [place] [address] Social History Tobacco Use Types Packs/Day Years [...] Office Visit Cardiology Shelton Smith MD [address] [place] [address] [address] [place] [address] (Wo rk) documented as of this encounter Procedures Procedure Name Priority Date/Time Associated Diagnosis Comme nts CREATININE Routine 07/08/2019 10:35 EST Results for this procedure are i n the results section . documented in this encounter Results CREATININE (07/08/2019 10:35 EST) CREATININE 1.07 0.66 - 1.25 [facility] mg/dL [facility] eGFR >60 [facility] Comment: [facility] Chronic renal impairment is defined as GFR <60 Multiply result by 1.210 for patients . Specimen Narrative [facility] - 019 12:03 EST Does PT Have a Latex Allergy? NO Performing Organization Address City/State/ZIP Code Phon e Number [facility] [address] [place] [address] [facility] documented in this encounter Visit Diagnoses Not on filedocumented in this encounter Care Teams Repairer Welding Systems And Equipment Relationship Specialty Start Date End Date Uriah Davis MD PCP - General 01/17/19 07/12/21 documented as of this encounter
--- OUTSIDE RECORDS SUMMARY | 2022-02-07 01:33 | XMS_ITS | Encounter Summary ---
:1955 Author Organization [facility] Address [address] [place] [address] Care Team Providers Name Role Phone Nash Danish Wells DO Primary Care Provider Encounter Details Date Type Department Care Team Description 10/08/2012 Anti-coag visit [facility] Yehuda Manriquez MD Cardiology - [place] [address] [place] [address] (Wo rk) Social History Tobacco [...] encounter Progress Notes Omari Mckeon MD - 10/12/2012 0856 EDT Omari Mckeon MD Valerie Leyva, RN - 10/11/2012 1421 EDT Instructions confirmed; Protime correlates w/ INR Gerald Sanchez - 10/08/2012 1137 EDT Pt's INR today is 3.0. He is at [facility] having his FREEDOM today for his ablation tomorrow. The nurse from [facility] called at the pt's request to get his Coumadin instructions.. She spoke with Valerie Pitt RN whoadvised pt should take the following dosing plan: take 5 mg tonight and they will test pt again here tomorrow, 10/09, prior to his abaltion. [facility] RN will give pt these instructions. [place]. Encounter routed to Valerie Pitt for sign off. documented in this encounter Plan of Treatment Upcoming Encounters Date Type Specialty Care Team Description 09/13/2022 Office Visit Cardiology Shelton Smith MD [address] [place] [address] [address] [place] [address] (Wo rk) documented as of this encounter Visit Diagnoses Not on filedocumented in this encounter Care Teams Try Out Person Relationship Specialty Start Date End Date Danish Cao DO PCP - General 11/26/08 06/26/[address] [place], [place] [address] documented as of this encounter
--- OUTSIDE RECORDS SUMMARY | 2022-02-07 01:33 | XMS_ITS | Encounter Summary ---
:1955 Author Organization [facility] Address [address] [place] [address] Care Team Providers Name Role Phone Danish Cao Primary Care Provider Encounter Details Date Type Department Care Team Description 11/05/2012 Anti-coag visit [facility] Yehuda Manriquez MD Cardiology - [place] [address] [place] [address] (Wo rk) Social History Tobacco [...] encounter Progress Notes Keaton Manriquez MD - 11/16/2012 1635 EDT Keaton Manriquez MD Valerie mtaos RN - 11/12/2012 1700 EDT Instructions confirmed; Protime correlates w/ INR Gerald Sanchez - 11/05/2012 1346 EDT Pt's INR today is 2.3. Reviewed encounter with Valerie Pitt RN who advised pt should take the following dosing plan: stay on current dose and test again in two weeks on 11/19. Contacted pt by email andreviewed result and instructions. Pt replied to verify receipt and understanding of same. Encounter routed to Valerie Pitt for sign off. documented in this encounter Plan of Treatment Upcoming Encounters Date Type Specialty Care Team Description 09/13/2022 Office Visit Cardiology Shelton Smith MD [address] [place] [address] [address] [place], [place] [address] (Wo rk) documented as of this encounter Procedures Procedure Name Priority Date/Time Associated Diagnosis Comme nts PROTIME Routine 11/05/2012 7:29 EDT Results for this procedure are i n the results section . documented in this encounter Results PROTIME (11/05/2012 7:29 EDT) Pathologist Sig nature Protime, External [facility] INR, External 2.3 [facility] Specimen Blood specimen (specimen) Performing Organization Address City/State/ZIP Code Phon e Number LAB documented in this encounter Visit Diagnoses Not on filedocumented in this encounter Care Teams Crib Attendant Relationship Specialty Start Date End Date Danish Cao, PCP - General 11/26/08 06/26/[address] [place] [address] documented as of this encounter
--- OUTSIDE RECORDS SUMMARY | 2022-02-07 01:33 | XMS_ITS | Encounter Summary ---
:1955 Author Organization [facility] Address [address] [place] [address] Care Team Providers Name Role Phone Renee Corcoran CYLINDER STEAMER Primary Care Provider Encounter Details Date Type Department Care Team Description 06/29/2016 Hospital Encounter [facility] - Danika Moore MD [facility] [address] [place] [id number] [phone] Social History Tobacco Use Types Packs/Day Years [...] older) documented as of this encounter Discharge Diagnoses Diagnosis I77.819 Aortic ectasia, unspecified site -I77.819[ICD-10-CM] documented in this encounter Medications at Time of Discharge Medication Sig Dispensed Refills Start Date End Date ascorbic acid (VITAMIN C) Take 500 mg by mouth 0 500 mg tablet daily. Multivitamins with Take 1 Tab by mouth 0 Minerals Tab daily. aspirin 81 mg EC tablet Take 81 mg by mouth 0 09/24/2019 daily. metoprolol (LOPRESSOR) 25 Take 25 mg by mouth 0 07/07/2017 mg tablet 2 times daily. Reported on 08/31/2016 documented as of this encounter Discharge Disposition Disposition Code Departure Means Destination Auto Discharge Home documented in this encounter Plan of Treatment Upcoming Encounters Date Type Specialty Care Team Description 09/13/2022 Office Visit Cardiology Shelton Smith MD [address] [place] [address] [phone] (Wo rk) documented as of this encounter Visit Diagnoses Not on filedocumented in this encounter Care Teams Show Horse Driver Relationship Specialty Start Date End Date Renee Corcoran NP PCP - General 06/27/16 01/16/19 documented as of this encounter
--- OUTSIDE RECORDS SUMMARY | 2022-02-07 01:33 | XMS_ITS | Encounter Summary ---
:1955 Author Organization [facility] Address [address] [place] [address] Care Team Providers Name Role Phone NashDanish bland DO Primary Care Provider Encounter Details Date Type Department Care Team Description 10/09/2012 Anti-coag visit [facility] Yehuda Manriquez MD Cardiology - [place] [address] [place] [address] (Wo rk) Social History Tobacco [...] Progress Notes Valerie Pitt RN - 10/11/2012 1421 EDT Instructions confirmed; Protime correlates w/ INR Gerald Sanchez - 10/09/2012 1127 EDT Pt's INR today is 3.1. He is having his ablation today. Reviewed encounter with Valerie Pitt RN whoadvised pt should take the following dosing plan: give him 4 mg tonight and test again tomorrow, 10/10. Contacted House Team (Carla Garcia, Sanjana Brenner M.Macdonald) by email and reviewed result and instructions. They will arrange for inpt dosing and order a protime for tomorrow. Encounter routed to Valerie Pitt for sign off. documented in this encounter Plan of Treatment Upcoming Encounters Date Type Specialty Care Team Description 09/13/2022 Office Visit Cardiology Shelton Smith MD [address] [place] [address] [address] [place], [place] [address] (Wo rk) documented as of this encounter Visit Diagnoses Not on filedocumented in this encounter Care Teams Gas Blender Relationship Specialty Start Date End Date Danish Cao DO PCP - General 11/26/08 06/26/[address] [place] [address] documented as of this encounter
--- OUTSIDE RECORDS SUMMARY | 2022-02-07 01:33 | XMS_ITS | Encounter Summary ---
:1955 Author Organization [facility] Address [address] [place] [address] Care Team Providers Name Role Phone Nash Danish Wells DO Primary Care Provider Reason for Visit Reason Comments Results Has been wearing an event mo nitor and having a lot of episodes. Not working or driving becuase these epi sodes make him feel lightheaded and disoriented. Encounter Details Date Type Department Care Team Description 04/29/2013 Office Visit [facility] Rex Hendricks ( [facility]) Cardiology - Sayra Akers MD (Primary Dx) [address] Sayra Sanchez [address] [place], [place] [address] [place] [address], [facility] [address] [place] [address] (Wo rk) Social History Tobacco [...] Sign Reading Time Taken Comments Blood Pressure 138/80 04/29/2013 0835 EDT Pulse 86 04/29/2013 0835 EDT Temperature - - Respiratory Rate - - Oxygen Saturation 100% 04/29/2013 0835 EDT Inhaled Oxygen Concentration - - Weight 70.3 kg (155 lb) 04/29/2013 0835 EDT Height - - Body Mass Index 22.24 04/08/2013 1127 EDT documented in this encounter Functional Status Cognitive Status Response Date of Assessment Because of a physical, mental, or emotional condition, do Ye s 10/09/2012 you have serious difficulty concentrating, remembering, or making decisions? (5 years old or older) documented as of this encounter Progress Notes Rex Hendricks MD - 04/29/2013 0915 EDT Subjective: Patient ID: Braulio Garcia is an 57 y.o. male. Chief Complaint Patient presents with ??? Results Has been wearing an event monitor and having a lot of episodes. Not working or driving becuase these episodes make him feel lightheaded and disoriented. HPI A very pleasant 57-year-old gentleman whom I have seen for paroxysmal atrial fibrillation for many years now. He is coming in today complaining of intermittent episodes that feel almost like an electric shock, as he describes it. He gets very brief palpitations frequently, only seconds, but feels almost mentally incapacitated, confused, can be disoriented, and this can last for hours after the episode of palpitations. He has been wearing an event recorder that has an audible alarm when it detects anepisode, and he has described some episodes with all the neurologic symptoms in response to the device beeping in the absence of palpitations or when the palpitations begin after the beeping begins. Otherwise, he has been without complaint. He has been back to exercise at other points during the last 6 months without limitation. When these episodes happen, he can be tired, has difficulty walking up hill without getting out of breath. His past history is significant for 4 ablations for atrial fibrillation, the last one about 6 months ago, and he has had attempts to treat him with flecainide, amiodarone, and atenolol. Each have resulted in hallucinations in the past. He has taken metoprolol without any hallucinations. Patient Active Problem List Diagnoses ??? A-fib [...] to Visit Medication Sig Dispense Refill ??? aspirin 81 mg EC tablet Take 81 mg by mouth daily. ??? Multivitamins with Minerals Tab Take [...] Only ROS - See HPI Objective: BP 138/80 Pulse 86 Wt 70.308 kg (155 lb) SpO2 100% Physical Exam Alert and oriented x3. His cranial nerves are grossly intact. Lungs are clear. Normal S1 and S2 without murmurs, rubs, or gallops. No clubbing, cyanosis or edema. Assessment: We met for 20 minutes, 15 of which was spent on counseling. The etiology of Yonis's symptoms is not entirely clear to me. The tracings from his event recorder are not available at this time. I do recallhaving briefly seen them about 2 weeks ago. What I remember is that there were several episodes of sy mptoms that were not associated with arrhythmia, but there were also several episodes of nonsustained atrial fibrillation that were associated with symptoms. We are going to need to get our hands on the actual tracing to confirm that my memory is correct. Meanwhile, his symptoms seem to be way out of proportion to his rhythm. I have not heard of other patients who had mental confusion, particularly not prolong mental confusion in response to atrial fibrillation, and certainly not in patients who hadpreserved ventricular function. Having said that, I think we can at least try Yonis back on his metoprolol to see if better rate control during fibrillation will reduce his symptoms, and we will continue to try to get in touch with Dr Moore' office to see if we can get the tracings themselves. Plan: There are no diagnoses linked to this encounter. Rex Hendricks MD documented in this encounter Plan of Treatment Upcoming Encounters Date Type Specialty Care Team Description 09/13/2022 Office Visit Cardiology Shelton Smith MD [address] [place] [address] [address] [place] [address] (Wo rk) documented as of this encounter Visit Diagnoses Diagnosis A-fib (HCC-CMS) (HCC) - Primary Atrial fibrillation documented in this encounter Care Teams Senior Accounting Manager Relationship Specialty Start Date End Date Danish Cao DO PCP - General 11/26/08 06/26/[address] [place] [address] documented as of this encounter
--- OUTSIDE RECORDS SUMMARY | 2022-02-07 01:33 | XMS_ITS | Encounter Summary ---
:1955 Author Organization [facility] Address [address] [place] [address] Care Team Providers Name Role Phone Uriah Davis MD Primary Care Provider Encounter Details Date Type Department Care Team Description 06/05/2019 Orders Only [facility] Zeyad Arcos MD Radiology - [address] [facility] [address] [address] [address] [place], [place] [address] (Wo rk) Social History [...] 09/13/2022 Office Visit Cardiology Shelton Smith MD [address] [place] [address] [address] [place] [address] (Wo rk) documented as of this encounter Visit Diagnoses Not on filedocumented in this encounter Care Teams User Experience Analyst Relationship Specialty Start Date End Date Uriah Davis MD PCP - General 01/17/19 07/12/21 documented as of this encounter
--- OUTSIDE RECORDS SUMMARY | 2022-02-07 01:33 | XMS_ITS | Encounter Summary ---
:1955 Author Organization [facility] Address [address] [place] [address] Care Team Providers Name Role Phone Renee Corcoran RN TRANSPORT Primary Care Provider Reason for Referral Radiology Services (Routine) - Closed Specialty Diagnoses / Procedures Referred By Contact Refer red To Contact Diagnoses Aortic root dilatation ([facility]) ([facility]) Manny Parrish PA-C Procedures CT ANGIO CHEST W/WO CONTRAST [address] [place] [phone] Referral ID Status Reason Start Date Expiration Date Visits Requ ested Visits Authorized [id number] Closed 05/29/2017 07/27/2017 1 1 Encounter Details Date Type Department Care Team Description 05/26/2017 Orders Only [facility] Manny Parrish, Ao rtic root Cardiothoracic Surgery PA-C dilatation ([facility]) - [address] ([facility]) (Primary [address] [facility] Dx) [address] [phone] [address] (Wo rk) Social History Tobacco [...] 09/13/2022 Office Visit Cardiology Shelton Smith MD [address] [place] [address] [phone] (Wo rk) documented as of this encounter Procedures Procedure Name Priority Date/Time Associated Diagnosis Comme nts CT ANGIO CHEST W/WO Routine 07/07/2017 8:46 EST Aortic root R esults for this CONTRAST dilatation ([facility]) procedu re are in ([facility]) the results section. documented in this encounter Results CT ANGIO CHEST W/WO CONTRAST (07/07/2017 8:46 EST) Anatomical Region Laterality Modality Other Specimen Narrative [facility] - 07/07/2017 9:[address] ANGIO CHEST ??07/07/2017 8:46 AM Clinical History/Comments: I77.810-Thoracic aortic ectasia (HCC)-IC D-10; Aortic dz, non-traumatic, known or suspected, aorti c root dilatation, surveillance Technique: A contrast-enhanced retrospectively ECG- gated CT acquisition was performed on a multidetector row scanner beginning at the apices inferiorly to the upper abdomen. ??Intra venous contrast was administered as 80-100 cc of 350-370 mg% nonionic contrast at an injection rate of 4 cc/second, with scan acquisition timed by the use of bolus-tracking software targeted to the proximal descending aorta. ??Scans were reconstructed in a s oft tissue algorithm at 75% ?? of the cardiac cycle with 2.5-3.0 mm thi ck scans reconstructed at overlapping 2.0 mm intervals and retrosp ectively reconstructed with 0.9 mm thickness at 0.45 mm intervals, a ll in a soft tissue algorithm for three-dimensional reconstr uction and interpretation on a dedicated PACS workstation. ??Coronal, sagittal and 3-D reformations of the aorta were performed . Comparison: 06/29/2016. Findings: Opacification of the aorta is good. No a cute abnormality is identified. Maximum dimension: Aortic root at sinuses of Valsalva: 4.8 cm, unchanged. Sinotubular junction: ??4.4 cm Ascending aorta: ??3.9 cm Aortic Arch: ??3.2 cm Descending thoracic aorta: ??2.9 cm Lower neck: No abnormalities. Chest wall soft tissues: No abnormalitie s. Mediastinum and rubia: No enlarged medias tinal or hilar lymph nodes. ?? There is a small sliding hiatal hernia. Heart and mediastinal vasculature: ??The aortic valve is trileaflet. The coronary arteries are well-opacified , with no visible plaques. Large airways: ??No abnormalities. Lungs: ??No abnormalities: Pleura: No abnormalities. Upper abdomen (limited to upper abdomen, not optimized for abdominal imaging): No abnormalities. Bones: ??No significant abnormalities. Impression: 1. ??Stable dilatation of the aortic nikky t, measuring 4.8 cm. Procedure Note Satish Arcos MD - 07/07/2017 CT ANGIO CHEST 07/07/2017 8:46 AM Clinical History/Comments: I77.810-Thoracic aortic ectasia (HCC)-IC D-10; Aortic dz, non-traumatic, known or suspected, aorti c root dilatation, surveillance Technique: A contrast-enhanced retrospectively ECG- gated CT acquisition was performed on a multidetector row scanner beginning at the apices inferiorly to the upper abdomen. Intrave nous contrast was administered as 80-100 cc of 350-370 mg% nonionic contrast at an injection rate of 4 cc/second, with scan acquisition timed by the use of bolus-tracking software targeted to the proximal descending aorta. Scans were reconstructed in a sof t tissue algorithm at 75% of the cardiac cycle with 2.5-3.0 mm thi ck scans reconstructed at overlapping 2.0 mm intervals and retrosp ectively reconstructed with 0.9 mm thickness at 0.45 mm intervals, a ll in a soft tissue algorithm for three-dimensional reconstr uction and interpretation on a dedicated PACS workstation. Coronal, s agittal and 3-D reformations of the aorta were performed . Comparison: 06/29/2016. Findings: Opacification of the aorta is good. No a cute abnormality is identified. Maximum dimension: Aortic root at sinuses of Valsalva: 4.8 cm, unchanged. Sinotubular junction: 4.4 cm Ascending aorta: 3.9 cm Aortic Arch: 3.2 cm Descending thoracic aorta: 2.9 cm Lower neck: No abnormalities. Chest wall soft tissues: No abnormalitie s. Mediastinum and rubia: No enlarged medias tinal or hilar lymph nodes. There is a small sliding hiatal hernia. Heart and mediastinal vasculature: The a ortic valve is trileaflet. The coronary arteries are well-opacified , with no visible plaques. Large airways: No abnormalities. Lungs: No abnormalities: Pleura: No abnormalities. Upper abdomen (limited to upper abdomen, not optimized for abdominal imaging): No abnormalities. Bones: No significant abnormalities. Impression: 1. Stable dilatation of the aortic root, measuring 4.8 cm. Performing Organization Address City/State/ZIP Code Phon e Number [facility] documented in this encounter Visit Diagnoses Diagnosis Aortic root dilatation (HCC-CMS) (HCC) - Primary Thoracic aortic ectasia documented in this encounter Care Teams Milk Route Deliverer Relationship Specialty Start Date End Date Renee Corcoran NP PCP - General 06/27/16 01/16/19 documented as of this encounter
--- OUTSIDE RECORDS SUMMARY | 2022-02-07 01:33 | XMS_ITS | Encounter Summary ---
:1955 Author Organization [facility] Address [address] [place] [address] Care Team Providers Name Role Phone Uriah Davis MD Primary Care Provider Encounter Details Date Type Department Care Team Description 08/05/2019 Orders Only [facility] - Jasiel Banegas, Atr ial fibrillation, [facility] Clin ic SMALL PARTS SHAPER OPERATOR unspecified type [address] ([facility]) (Primary Dx) [place] [address] [address] [place] [address] Social History Tobacco Use Types Packs/Day Years [...] Office Visit Cardiology Shelton Smith MD [address] [place] [address]-[address] [place], [place] [phone] (Wo rk) documented as of this encounter Procedures Procedure Name Priority Date/Time Associated Diagnosis Comme nts CARDIAC IMPLANT Routine 08/07/2019 11:50 Atrial fibrillation, Results for this CHECK - REMOTE EST unspecified type procedure are in MONITOR ([facility]) the results section. documented in this encounter Results CARDIAC IMPLANT CHECK - REMOTE - LOOP RECORDER (ILR) (08/07/2019 11:50 EST) Specimen Narrative [facility] - 08/07/2019 11:[address] [facility]iology ILR Visit Health And Safety Director: [employer] Device Type: Implantable loop recorder Service: Remote ? Implant Date: 09/13/2016 Indication: Syncope Battery Longevity: good years Symptom: none Tachycardia: none Bradycardia: none Pause: none AF: none Impression: There is adequate battery lo ngevity. The leads and device are functioning normally. The patient will f ollow up Remotely in 3 months. Jasiel Banegas APRN Performing Organization Address City/State/ZIP Code Phon e Number [facility] POINT OF CARE [facility] documented in this encounter Visit Diagnoses Diagnosis Atrial fibrillation, unspecified type ([facility]) ([facility]) - Primary documented in this encounter Care Teams Med Peds Relationship Specialty Start Date End Date Uriah Davis MD PCP - General 01/17/19 07/12/21 documented as of this encounter
--- OUTSIDE RECORDS SUMMARY | 2022-02-07 01:33 | XMS_ITS | Encounter Summary ---
:1955 Author Organization [facility] Address [address] [place] [address] Care Team Providers Name Role Phone Danish Cao Russell DO Primary Care Provider Encounter Details Date Type Department Care Team Description 10/22/2012 Anti-coag visit [facility] Yehuda Manriquez MD Cardiology - [place] [address] [place] [address] (Wo rk) Social History Tobacco [...] encounter Progress Notes Omari Mckeon MD - 10/24/2012 0924 EDT Omari Mckeon MD Valerie matos, ROBBY - 10/23/2012 1200 EDT Instructions confirmed; Protime correlates w/ INR Gerald Sanchez - 10/22/2012 1313 EDT Pt's INR today is 3.5. Reviewed encounter with Valerie Pitt RN who advised pt should take the following dosing plan: take 3 mg Mon & Fri and 4 mg the other five days. Test again in one week on 10/29. Contacted pt by email and reviewed result and instructions. Pt replied after hours to verify receipt and understanding of same. Encounter routed to Valerie Pitt for sign off. documented in this encounter Plan of Treatment Upcoming Encounters Date Type Specialty Care Team Description 09/13/2022 Office Visit Cardiology Shelton Smith MD [address] [place] [address] [address] [place] [address] (Wo rk) documented as of this encounter Procedures Procedure Name Priority Date/Time Associated Diagnosis Comme nts PROTIME Routine 10/22/2012 8:31 EDT Results for this procedure are i n the results section . documented in this encounter Results PROTIME (10/22/2012 8:31 EDT) Pathologist Sig nature Protime, External [facility] INR, External 3.5 [facility] Specimen Blood specimen (specimen) Performing Organization Address City/State/ZIP Code Phon e Number [facility] documented in this encounter Visit Diagnoses Not on filedocumented in this encounter Care Teams Mixing Place Supervisor Relationship Specialty Start Date End Date Danish Cao, PCP - General 11/26/08 06/26/[address] [place] [id number] documented as of this encounter
--- OUTSIDE RECORDS SUMMARY | 2022-02-07 01:33 | XMS_ITS | Encounter Summary ---
:1955 Author Organization [facility] Address [address] [place] [address] Care Team Providers Name Role Phone Uriah Davis MD Primary Care Provider Reason for Visit Reason Comments Follow-up Here for follow up, CT done 07/23/19. Encounter Details Date Type Department Care Team Description 08/12/2019 Office Visit [facility] Vipin Bliss aorta Cardiothoracic Surgery MD Rogers [address] ([facility]) (Primary [address] [facility] Dx) [place], [place] [id number] [place] [address] [place], [address] [place] [address] (Wo rk) Social History Tobacco [...] Sign Reading Time Taken Comments Blood Pressure 112/74 08/12/2019 0844 EST Pulse 64 08/12/2019 0844 EST Temperature 36.2 ??C (97.1 ??F) 08/12/2019 0844 EST Respiratory Rate 14 08/12/2019 0844 EST Oxygen Saturation 97% 08/12/2019 0844 EST Inhaled Oxygen Concentration - - Weight 70.3 kg (155 lb) 08/12/2019 0844 EST Height 177.8 cm (5' 10) 08/12/2019 0844 EST Body Mass Index 22.24 08/12/2019 0844 EST documented in this encounter Functional Status [...] encounter Patient Instructions Patient InstructionsOlamide Saenz - 08/12/2019 8:[address] Bliss he would like to see you during the month of July in the year of 2021 with an imaging study and office visit for follow-up on the same day. The Surgeon's Clinical High School Art Teacher will contact you to set your appointments during the month preceding the appointments. If you do not hear from the Clinical High School Art Teacher during that month, please michael your calendar and contact our office at to schedule the appointments. ???Avoid the Class of Fluoroquinolone Antibiotics as they may be associated with an increased risk of aortic aneurysm or dissection?Discuss this with your Primary Care Doctor.?? You should have your blood pressure checked daily per your Surgeon. If you have a blood pressure monitor at home you may use this as long as you bring it in to your Doctor periodically (three times per year or as per your Doctor) to have it checked for accuracy. You should also follow with your Doctor for your blood pressure monitoring in his/her office as per their direction. Contact your Primary Care Doctor if your systolic blood pressure (the top number) is greater than orequal to 140 You may have a lifting, pushing, pulling restriction regarding your aneurysm. If your Surgeon has instructed you on this, the lifting, pushing, pulling restriction is nothing more than 50 pounds indefinitely. Continue your regular follow-up with your Primary Care Doctor and any other Doctors that you normally follow with. Following closely with your Doctors for health care maintenance if very important. If you have chest, jaw, neck, arm, back pain or pressure, shortness of breath, dizziness, sweating with dizziness, nausea, fainting (passing out) or near- fainting you should contact your Doctor immediately. If you are having a medical emergency, you should call 911 as reviewed. Feel free to contact our office at if you have any questions. Thank you. documented in this encounter Progress Notes Julio Marlow MD - 08/12/2019 0845 EST Emt Dispatcher Follow-Up Ascending Aortic Aneurysm SUBJECTIVE: Braulio Garcia was seen in the office today. In general, he seems to be doing quite well. He reports regularly exercising, and ran for an hour this morning. He checks his BP regularly at home, usually with systolics in the 110-120s. He denies any headaches, lightheadedness, chest pain, orvision changes. He follows with Dr. Smith at [facility]. OBJECTIVE: BP 112/74 (BP Cuff Location: Left arm, BP Patient Position: Sitting, BP Cuff Sizes: Adult, large) Pulse 64 Temp 36.2 ??C (97.1 ??F) (Temporal) Resp 14 Ht 177.8 cm (70) Wt 70.3 kg (155 lb) SpO2 97% BMI 22.24 kg/m?? . His chest is clear to auscultation and percussion. His heartshows a regular rhythm without murmurs or rubs. His sternum and saphenous donor site have healed well. PEx: Gen: NAD CV: RRR, no murmurs/rubs/gallops Resp: Clear bilaterally CT Angio Chest reading: CT ANGIO CHEST 07/23/2019 8:40 AM Comparison: 07/07/2017. Findings: Maximum dimension: Aortic root at sinuses of Valsalva: 4.8 cm Sinotubular junction: 4.4 cm Ascending aorta: 4.1 cm Aortic Arch: 3.3 cm Descending thoracic aorta: 3.1 cm ?? IMPRESSION 1. Stable dilated ascending aorta. 2. Loop recorder in the left chest wall. 3. Scattered small foci of linear scarring or atelectasis in the lungs. ASSESSMENT: Braulio Garcia has an unchanged ascending aortic aneurysm, measured at the sinus of Valsalva of 4.8cm, identical as prior CT from 2017. With a trileaflet aortic valve, I would not pursue any changes in management until it reached 5.5 to 6 cm. His last TTE was 08/2017. Current Outpatient Medications: ascorbic acid (VITAMIN C) 500 mg tablet aspirin 81 mg EC tablet DILTiazem (CARDIZEM) 30 mg tablet fish oil-omega-3 fatty acids 340-1,000 mg capsule lisinopril (PRINIVIL, ZESTRIL) 5 mg tablet Multivitamins with Minerals Tab No current facility-administered medications for this visit. . PLAN: 1. No change in medications. 2. Continue close follow up with Uriah Davis and Dr. Smtih. 3. Follow-up in this office in [address] angio chest. Patient seen/examined with Dr. Bliss 08/12/19 9:26 Julio Marlow MD, PGY-4 Surgery, [phone] Attestation statement: I saw and examined the patient with Dr. Marlow. I agree with the findings and plan of care documented in his note. Vipin Bliss MD, FACS documented in this encounter Plan of Treatment Upcoming Encounters Date Type Specialty Care Team Description 09/13/2022 Office Visit Cardiology Shelton Smith MD [address] [place] [address] [address] [place], [place] [phone] (Wo rk) documented as of this encounter Visit Diagnoses Diagnosis Ascending aorta dilatation (HCC-CMS) (HC C) - Primary Thoracic aortic ectasia documented in this encounter Historical Medications This list may reflect changes made after this encounter. Medication Sig Dispensed Refills Start Date End Date fish oil-omega-3 fatty Take 1 Cap by mouth 0 acids 340-1,000 mg capsule daily. added in this encounter Care Teams [employer] Dean Relationship Specialty Start Date End Date Uriah Davis MD PCP - General 01/17/19 07/12/21 documented as of this encounter
--- OUTSIDE RECORDS SUMMARY | 2022-02-07 01:33 | XMS_ITS | Encounter Summary ---
:1955 Author Organization [facility] Address [address] [place] [address] Care Team Providers Name Role Phone Renee Corcoran DRYING ROOM OPERATOR Primary Care Provider Reason for Visit Reason Comments Follow-up Here for follow up, CTA jarvis lama Encounter Details Date Type Department Care Team Description 07/07/2017 Office Visit [facility] Vipin Bliss of Cardiothoracic Surgery MD Rogers thoracic aorta - [address] ([facility]) ([facility]) [address] [place] [address] (Primary Dx) [address] [phone] [place] [place] [address] (Wo rk) Social History Tobacco [...] Sign Reading Time Taken Comments Blood Pressure 126/76 07/07/2017 1002 EST Pulse 72 07/07/2017 1002 EST Regular Temperature 36.2 ??C (97.1 ??F) 07/07/2017 1002 EST Respiratory Rate 14 07/07/2017 1002 EST Oxygen Saturation 97% 07/07/2017 1002 EST Inhaled Oxygen Concentration - - Weight 70.3 kg (155 lb) 07/07/2017 1002 EST Height 177.8 cm (5' 10) 07/07/2017 1002 EST Body Mass Index 22.24 07/07/2017 1002 EST documented in this encounter Functional Status [...] aortic ectasia-I77.810[ ICD-10-CM] documented in this encounter Patient Instructions Patient InstructionsRakelOlamide hernández - 07/07/2017 10:[address] Bliss he would like to see you during the month of June in the year of 2018 with an Imaging Study and office visit for follow-up on the same day. The Surgeon's Clinical Card Dealer will contact you to set your appointments during the month preceding the appointments. If you do not hear from the Clinical Card Dealer during that month, please michael your calendar and contact our office at to schedule the appointments. You should have your blood pressure checked frequently. If you have a blood pressure monitor [...] Contact your Primary Care Doctor if your Systolic Blood Pressure (the top number) is greater than orequal to 120. You may have a lifting, pushing, pulling restriction regarding your aneurysm. If your Surgeon has instructed you on this, the lifting, pushing, pulling restriction is nothing more than 50 pounds indefinitely. If you have chest, jaw, neck, arm, back pain or pressure, shortness of breath, dizziness, sweating with dizziness, nausea, fainting (passing out) or near- fainting you should contact your Doctor immediately. If you are having a medical emergency, you should call 911 as reviewed. Continue your regular follow-up with your Primary Care Doctor and any other Doctors that you normally follow with. Following closely with your Doctors for health care maintenance is very important. Feel free to contact our office (Cardiothoracic Surgery) at if you have any questions. Thank you. documented in this encounter Discharge Disposition Disposition Code Departure Means Destination Auto Discharge documented in this encounter Progress Notes Vipin Bliss MD - 07/07/2017 1000 EST Images from the original note were not included. 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 SUBJECTIVE: Braulio Garcia was seen in the office today. In general, he seems to be doing quite well. He stills jogs every day. His BP is under better control. OBJECTIVE: BP 126/76 (BP Cuff Location: Right arm, Patient Position: Sitting, BP Cuff Sizes: Adult, large) Pulse 72 Comment: Regular Temp 36.2 ??C (97.1 ??F) (Temporal) Resp 14 Ht 177.8 cm (70) Wt 70.3 kg (155 lb) SpO2 97% BMI 22.24 kg/m2. His chest is clear to auscultation and percussion. His heart shows a regular rhythm without murmurs or rubs and a split S1. His sternum and saphenous donor site have healed well. Chest CTA reading today: Impression: ?? 1. ??Stable dilatation of the aortic root, measuring 4.8 cm. . ASSESSMENT: I think that Braulio Garcia has a stable ascending aorta and aortic root. He does not need surgery now and I agree that the indication for surgery would be 5.5 cm or he develops aortic insufficiency. I would ask Drs. Moore of Luis to obtain a TTE to evaluate the aortic valve for insufficiency. I would like to see the patient now on an every 2 year interval with a CTA of the chest. I would not change any of his current medications at the present time, which include: Current Outpatient Prescriptions: ascorbic acid (VITAMIN C) 500 mg tablet aspirin 81 mg EC tablet DILTiazem (CARDIZEM) 30 mg tablet lisinopril (PRINIVIL, ZESTRIL) 5 mg tablet metoprolol (LOPRESSOR) 25 mg tablet Multivitamins with Minerals Tab No current facility-administered medications for this visit. . PLAN: 1. No change in medications. 2. Continue close follow up with Renee Corcoran and Drs. Moore and Luis 3. [facility] TTE at the investment director convenience. 4. Follow-up in this office in 2 years with a CTA chest. Vipin Bliss MD 07/07/2017 documented in this encounter Plan of Treatment Upcoming Encounters Date Type Specialty Care Team Description 09/13/2022 Office Visit Cardiology Shelton Smith MD [address] [place] [address] [phone] (Wo rk) documented as of this encounter Visit Diagnoses Diagnosis Dilatation of thoracic aorta (HCC-CMS) ( HCC) - Primary Thoracic aortic ectasia documented in this encounter Discontinued Medications Medication Sig Discontinue Reason Start Date End Date lisinopril (PRINIVIL, Take 5 mg by mouth Duplicate Therapy 07/07/2017 ZESTRIL) 10 mg tablet daily. metoprolol Take 25 mg by mouth Discontinued by another 07/07/2017 (LOPRESSOR) 25 mg 2 times daily. clinician tablet Reported on 08/31/2016 documented as of this encounter Historical Medications This list may reflect changes made after this encounter. Medication Sig Dispensed Refills Start Date End Date lisinopril (PRINIVIL, Take 5 mg by mouth 3 0 11/26/2019 ZESTRIL) 5 mg tablet times daily. 2 tabs in the morning, 1 tab at night. lisinopril (PRINIVIL, Take 5 mg by mouth 0 07/07/2017 ZESTRIL) 10 mg tablet daily. added in this encounter Care Teams Outbound Sales Specialist Relationship Specialty Start Date End Date Renee Corcoran, DAMASO PCP - General 06/27/16 01/16/19 documented as of this encounter
--- OUTSIDE RECORDS SUMMARY | 2022-02-07 01:33 | XMS_ITS | Encounter Summary ---
:1955 Author Organization [facility] Address [address] [place] [address] Care Team Providers Name Role Phone Danish Cao DO Primary Care Provider Encounter Details Date Type Department Care Team Description 10/29/2012 Anti-coag visit [facility] Yehuda Manriquez MD Cardiology - [place] [address] [place] [address] (Wo rk) Social History Tobacco [...] encounter Progress Notes Keaton Manriquez MD - 11/07/2012 1441 EDT Keaton Manriquez MD Valerie matos RN - 11/05/2012 1334 EDT Instructions confirmed; Protime correlates w/ INR Gerald Sanchez - 10/29/2012 1613 EDT Pt's INR today is 2.7. Reviewed encounter with Valerie Pitt RN who advised pt should take the following dosing plan: stay on current dose and test again in one week on 11/05. Contacted pt by email and reviewed result and instructions. Pt asked to reply to verify receipt and understanding of same. Encounter routed to Valerie Pitt for sign off. 10/30/12: Pt replied by email just after 0500 this morning as requested. documented in this encounter Plan of Treatment Upcoming Encounters Date Type Specialty Care Team Description 09/13/2022 Office Visit Cardiology Shelton Smith MD [address] [place] [address] [address] [place] [address] (Wo rk) documented as of this encounter Procedures Procedure Name Priority Date/Time Associated Diagnosis Comme nts PROTIME Routine 10/29/2012 9:00 EDT Results for this procedure are i n the results section . documented in this encounter Results PROTIME (10/29/2012 9:00 EDT) Pathologist Sig nature Protime, External [facility] INR, External 2.7 [facility] Specimen Blood specimen (specimen) Performing Organization Address City/State/ZIP Code Phon e Number [facility] documented in this encounter Visit Diagnoses Not on filedocumented in this encounter Care Teams Access Lead Relationship Specialty Start Date End Date Danish Cao, PCP - General 11/26/08 06/26/[address] [place] [address] documented as of this encounter
--- OUTSIDE RECORDS SUMMARY | 2022-02-07 01:33 | XMS_ITS | Encounter Summary ---
:1955 Author Organization [facility] Address [address] [place] [address] Care Team Providers Name Role Phone Danish Cao DO Primary Care Provider Renee Corcoran NP Primary Care Provider Uriah Davis MD Primary Care Provider Shelton Smith MD Unavailable [phone] Tho Genao Primary Care Provider Encounter Details Date Type Department Care Team Description 06/25/2015 Historical Results Only [facility] - Unknown, [facility] Cardiology Clin ic Provider, MD [phone] [place] [address] (Work) [phone] Social History Tobacco Use Types Packs/Day Years [...] or older) documented as of this encounter Plan of Treatment Upcoming Encounters Date Type Specialty Care Team Description 09/13/2022 Office Visit Cardiology Shelton Smith MD [address] [facility] [address] [place] [address] (Wo rk) documented as of this encounter Procedures Procedure Name Priority Date/Time Associated Comments Diagnosis TRANSTHORACIC ECHO 06/25/2015 14:40 Resul ts for this (TTE) COMPLETE EST procedure are in the results section. documented in this encounter Results TRANSTHORACIC ECHO (TTE) COMPLETE (06/25/2015 14:40 EST) Specimen Narrative [facility] - 06/25/2015 14:40 EST ?[facility] ?[address] [address] ? [id number] ? E C H O C A R D I O G R A M ? R E P O R T NAME: NOHEMY GARCIA ?: 51 ? LOCATION: CVC ? TELEPHONE: [phone] ?MR#: [id number] ? *[facility]* *[facility]* [address] [place] [address] ?? Date of study: 06/25/2015 ?? Transthoracic Echocardiography M-mode, complete 2D, complete spectral D oppler, and color Doppler *STUDY CONCLUSIONS* Summary: 1. Left ventricle: The cavity size was n ormal. Wall thickness was normal. ?? Systolic function was normal. The es timated ejection fraction was 55-60%. ?? Wall motion was normal; there were n o regional wall motion abnormalities. 2. Aortic valve: Trileaflet. There was n o stenosis. Mild regurgitation. 3. Ascending aorta: The ascending aorta was dilated to 45mm. 4. Mitral valve: Mild to moderate regurg itation. 5. Right ventricle: The cavity size was normal. Wall thickness was normal. ?? Systolic function was normal. 6. Pulmonary arteries: Pulmonary systoli c pressure was within the normal range. 7. Baseline ECG: Normal sinus rhythm. *PATIENT PRESENTATION* Height: ? 177.8cm (70in ) S/D Pressure: 118 / 70 Weight: ? 70.3kg (154.7lb ) BSA: ?1.86m S 2 Test start time: ??02:40 PM. Test stop time: ??03:45 PM. REFERRING ?Manny Moore ORCHID HAND ??Fannie Ashford PERFORMING ?? [facility] *PROCEDURE DATA* Procedure information: ??[facility] INFO:[id number] This study was interpreted by [facility]. Andrew ramsey images and digital data are archived for permanent storage and are a vailable for subsequent review. No prior ?[facility] ?[address] [place] [address] ? [id number] ? E C H O C A R D I O G R A M ? R E P O R T NAME: GARCIANOHEMY ?: 51 ? LOCATION: CVC ? TELEPHONE: [phone] ?MR#: [id number] ? study was available for comparison. ??St udy status: ??Routine. Transthoracic echocardiography. ??M-mode, complete 2D, complete spectral Doppler, and color Doppler. A Transthoracic Echocardiogram was performed. Scanning was performed from the parasternal, apical, subcostal, and suprasternal notch acoustic windows. ??Study completion: ??The patie nt tolerated the procedure well. History: ?PMH: ??Atrial fibrillation - I48.91. *CARDIAC ANATOMY* Left ventricle: ??The cavity size was no rmal. Wall thickness was normal. Systolic function was normal. The estimated eject ion fraction was 55-60%. Wall motion was normal; there were no regional wall maulik on abnormalities. Aortic valve: ?? Trileaflet. ??Doppler: ?? There was no stenosis. ?Mild regurgitation. ?VTI ratio of LVOT to aortic valve: 0.86. Indexed valve area: 1.7cm S 2/m S 2 (VTI). Peak velocity rat io of LVOT to aortic valve: 0.71. Indexed valve area: 1.4cm S 2/m S 2 (Vmax). ?Mean gradient: 2.1mm Hg (S). Peak gradient: 4.2mm Hg (S). Aorta: ??Ascending aorta: The ascending aorta was dilated to 45mm. Mitral valve: ?? Mildly thickened leafle ts. ??Doppler: ?? Mild to moderate regurgitation. ?Valve area by pressu re half-time: 2.7cm S 2. Indexed valve area by pressure half-time: 1.4cm S 2/m S 2. Left atrium: ??Well visualized. The atri um was normal in size. Right ventricle: ??The cavity size was n ormal. Wall thickness was normal. Systolic function was normal. Pulmonic valve: ?Doppler: ??Transval vular velocity was within the normal range. There was no evidence for stenosis. ??No regurgitation. Tricuspid valve: ?? Structurally normal valve. ?Doppler: ??Transvalvular velocity was within the normal range. Th ere was no evidence for stenosis. ??Mild regurgitation. Pulmonary artery: ?? Pulmonary systolic pressure was within the normal range. Right atrium: ??Well visualized. The atr ium was normal in size. Pericardium: ??There was no significant pericardial effusion. Systemic veins: Inferior vena cava: Well visualized. The vessel was normal in size; the respirophasic diameter changes were in t he normal range (greater than or equal to 50%). Baseline ECG: ?? Normal sinus rhythm. *MEASUREMENT TABLES* 2D measurements ? Normal Left ventricle Volume, ED, MOD, 1-plane ? 103 ml ? -------- Ejection fraction, MOD, 1-plane ? 58 % ?-------- Volume index, ED, MOD, 1-plane ?55 ml/m S 2 ?? -------- Aorta Root diameter, ED ? 42.1 mm ? -------- Left atrium Area ES, A4C ?15.7 cm S 2 ? 8.8-23.4 ?[facility] ?[address] [address] ?( [phone] ? E C H O C A R D I O G R A M ? R E P O R T NAME: GARCIANOHEMY ?: 51 ? LOCATION: CVC ? TELEPHONE: [phone] ?MR#: [id number] ? Volume index, S ? 30 ml/m S 2 ?? -------- Right atrium Area, ES ?20.4 cm S 2 ? -------- ?? M-mode measurements ? Normal Left ventricle Volume, ED, Teichholz ?127.2 ml ? -------- Volume, ES, Teichholz ? 44.8 ml ? -------- Ejection fraction, Teichholz ? 64.78 % ?64-83 Volume index, ED, Teichholz ? 68 ml/m S 2 ?? -------- Volume index, ES, Teichholz ? 24 ml/m S 2 ?? -------- Aorta Root diameter, ED ?*43.3 mm ? 20-37 ?? Doppler measurements ?Normal Main pulmonary artery Pressure, S ? 28 mm Hg ?<=30 Pressure, ED ?12 mm Hg ?-------- Left ventricle IVRT ?83 ms ? 60-100 Ea, medial annulus, tissue Doppler ?12 cm/s ? -------- E/Ea, medial annulus, tissue Doppler ??3 .67 ?-------- LVOT Peak velocity, S ?73 cm/s ? -------- VTI, S ?16.8 cm ? -------- Peak gradient, S ? 2.1 mm Hg ?-------- Mean gradient, S ? 1.1 mm Hg ?-------- Aortic valve Peak velocity, S ? 103 cm/s ? -------- Mean velocity, S ?67 cm/s ? -------- VTI, S ?19.5 cm ? -------- Mean gradient, S ? 2.1 mm Hg ?-------- Peak gradient, S ? 4.2 mm Hg ?-------- VTI ratio, LVOT/AV ?0.86 ?-------- Valve area index, VTI ?1.7 cm S 2/m S 2 -------- Peak velocity ratio, LVOT/AV ?0.71 ?-------- Valve area index, Vmax ? 1.4 cm S 2/m S 2 -------- Mitral valve Peak E-wave velocity ?44 cm/s ? -------- Peak A-wave velocity ?54 cm/s ? -------- Deceleration slope ? 163 cm/s S 2 ?? -------- Deceleration time ? *272 ms ? 150-230 Pressure half-time ?83 ms ? -------- Peak E/A ratio ?0.81 ?-------- Valve area, pressure half-time ? 2.7 cm S 2 ? -------- Valve area index, pressure half-time ?? 1.4 cm S 2/m S 2 -------- Tricuspid valve Regurgitant peak velocity ?222 cm/s ? -------- Peak RV-RA gradient, S ?19.7 mm Hg ?-------- Maximal regurgitant velocity ? 222 cm/s ? -------- Systemic veins ?[facility] ?[facility] [address] [place], [place] [address] ? [id number] ? E C H O C A R D I O G R A M ? R E P O R T NAME: NOHEMY GARCIA Romulo ?: 51 ? LOCATION: CVC ? TELEPHONE: [phone] ?MR#: [id number] ? Estimated CVP ? 10 mm Hg ?-------- Right ventricle RV pressure, S ? *30 mm Hg ?<30 Pulmonic valve Peak velocity, S ?69 cm/s ? -------- Mean velocity, S ?47 cm/s ? -------- Regurgitant velocity, ED ?62 cm/s ? -------- Legend: Mean values are shown as u=mean value. Asterisk (*) saldana values outside specif ied normal range. I have personally reviewed the images an d have reviewed and edited the reported findings. Electronically signed by Kalpesh Smith MD 06/25/2015 16:09 Procedure Kalpesh Sarah MD - 05/12/2019 [facility] [address] [place], [place] [address] [id number] E C H O C A R D I O G R A M R E P O R T NAME: NOHEMY GARCIA : 51 LOCA TION: [facility] TELEPHONE: [phone] MR#: [id number] [facility] T#: [id number] *[facility]* *[facility]* [address] [place] [address] Date of study: 06/25/2015 Transthoracic Echocardiography M-mode, complete 2D, complete spectral D oppler, and color Doppler *STUDY CONCLUSIONS* Summary: 1. Left ventricle: The cavity size was n ormal. Wall thickness was normal. Systolic function was normal. The estim ated ejection fraction was 55-60%. Wall motion was normal; there were no r egional wall motion abnormalities. 2. Aortic valve: Trileaflet. There was n o stenosis. Mild regurgitation. 3. Ascending aorta: The ascending aorta was dilated to 45mm. 4. Mitral valve: Mild to moderate regurg itation. 5. Right ventricle: The cavity size was normal. Wall thickness was normal. Systolic function was normal. 6. Pulmonary arteries: Pulmonary systoli c pressure was within the normal range. 7. Baseline ECG: Normal sinus rhythm. *PATIENT PRESENTATION* Height: 177.8cm (70in ) S/D Pressure: 118 / 70 Weight: 70.3kg (154.7lb ) BSA: 1.86m S 2 Test start time: 02:40 PM. Test stop time: 03:45 PM. REFERRING Manny Moore ORCHID HAND Fannie Ashford PERFORMING [facility] *PROCEDURE DATA* Procedure information: [facility] INFO:[id number] This study was interpreted by [facility]. Andrew ramsey images and digital data are archived for permanent storage and are a vailable for subsequent review. No prior [facility] [address] [place] [address] [id number] E C H O C A R D I O G R A M R E P O R T NAME: TORIBIONOHEMY Romulo : 51 LOCA TION: [facility] TELEPHONE: [phone] MR#: [id number] [facility] T#: [id number] study was available for comparison. Stud y status: Routine. Transthoracic echocardiography. M-mode, complete 2D, c omplete spectral Doppler, and color Doppler. A Transthoracic Echocardiogram was performed. Scanning was performed from the parasternal, apical, subcostal, and suprasternal notch acoustic windows. Study completion: The patient t olerated the procedure well. History: PMH: Atrial fibrillation - I48. 91. *CARDIAC ANATOMY* Left ventricle: The cavity size was norm al. Wall thickness was normal. Systolic function was normal. The estimated eject ion fraction was 55-60%. Wall motion was normal; there were no regional wall maulik on abnormalities. Aortic valve: Trileaflet. Doppler: There was no stenosis. Mild regurgitation. VTI ratio of LVOT to aort ic valve: 0.86. Indexed valve area: 1.7cm S 2/m S 2 (VTI). Peak velocity rat io of LVOT to aortic valve: 0.71. Indexed valve area: 1.4cm S 2/m S 2 (Vmax). Mean gradient: 2.1mm Hg (S). Peak gradient: 4.2mm Hg (S). Aorta: Ascending aorta: The ascending ao rta was dilated to 45mm. Mitral valve: Mildly thickened leaflets. Doppler: Mild to moderate regurgitation. Valve area by pressure isaac lf-time: 2.7cm S 2. Indexed valve area by pressure half-time: 1.4cm S 2/m S 2. Left atrium: Well visualized. The atrium was normal in size. Right ventricle: The cavity size was nor mal. Wall thickness was normal. Systolic function was normal. Pulmonic valve: Doppler: Transvalvular v elocity was within the normal range. There was no evidence for stenosis. No r egurgitation. Tricuspid valve: Structurally normal khurram ve. Doppler: Transvalvular velocity was within the normal range. Th ere was no evidence for stenosis. Mild regurgitation. Pulmonary artery: Pulmonary systolic pre ssure was within the normal range. Right atrium: Well visualized. The atriu m was normal in size. Pericardium: There was no significant pe ricardial effusion. Systemic veins: Inferior vena cava: Well visualized. The vessel was normal in size; the respirophasic diameter changes were in t he normal range (greater than or equal to 50%). Baseline ECG: Normal sinus rhythm. *MEASUREMENT TABLES* 2D measurements Normal Left ventricle Volume, ED, MOD, 1-plane 103 ml -------- Ejection fraction, MOD, 1-plane 58 % --- ----- Volume index, ED, MOD, 1-plane 55 ml/m S 2 -------- Aorta Root diameter, ED 42.1 mm -------- Left atrium Area ES, A4C 15.7 cm S 2 8.8-23.4 [facility] [address] [place], [place] [address] [id number] E C H O C A R D I O G R A M R E P O R T NAME: TORIBIONOHEMY Sebastian : 51 LOCA TION: [facility] TELEPHONE: [phone] MR#: [id number] [facility] T#: [id number] Volume index, S 30 ml/m S 2 -------- Right atrium Area, ES 20.4 cm S 2 -------- M-mode measurements Normal Left ventricle Volume, ED, Teichholz 127.2 ml -------- Volume, ES, Teichholz 44.8 ml -------- Ejection fraction, Teichholz 64.78 % 64- 83 Volume index, ED, Teichholz 68 ml/m S 2 -------- Volume index, ES, Teichholz 24 ml/m S 2 -------- Aorta Root diameter, ED *43.3 mm 20-37 Doppler measurements Normal Main pulmonary artery Pressure, S 28 mm Hg <=30 Pressure, ED 12 mm Hg -------- Left ventricle IVRT 83 ms 60-100 Ea, medial annulus, tissue Doppler 12 cm /s -------- E/Ea, medial annulus, tissue Doppler 3.6 7 -------- LVOT Peak velocity, S 73 cm/s -------- VTI, S 16.8 cm -------- Peak gradient, S 2.1 mm Hg -------- Mean gradient, S 1.1 mm Hg -------- Aortic valve Peak velocity, S 103 cm/s -------- Mean velocity, S 67 cm/s -------- VTI, S 19.5 cm -------- Mean gradient, S 2.1 mm Hg -------- Peak gradient, S 4.2 mm Hg -------- VTI ratio, LVOT/AV 0.86 -------- Valve area index, VTI 1.7 cm S 2/m S 2 - ------- Peak velocity ratio, LVOT/AV 0.71 ------ -- Valve area index, Vmax 1.4 cm S 2/m S 2 -------- Mitral valve Peak E-wave velocity 44 cm/s -------- Peak A-wave velocity 54 cm/s -------- Deceleration slope 163 cm/s S 2 -------- Deceleration time *272 ms 150-230 Pressure half-time 83 ms -------- Peak E/A ratio 0.81 -------- Valve area, pressure half-time 2.7 cm S 2 -------- Valve area index, pressure half-time 1.4 cm S 2/m S 2 -------- Tricuspid valve Regurgitant peak velocity 222 cm/s ----- --- Peak RV-RA gradient, S 19.7 mm Hg ------ -- Maximal regurgitant velocity 222 cm/s -- ------ Systemic veins [facility] [address] [place], [place] [address] [id number] E C H O C A R D I O G R A M R E P O R T NAME: NOHEMY GARCIA : 51 LOCA TION: [facility] TELEPHONE: [phone] MR#: [id number] [facility] T#: [id number] Estimated CVP 10 mm Hg -------- Right ventricle RV pressure, S *30 mm Hg <30 Pulmonic valve Peak velocity, S 69 cm/s -------- Mean velocity, S 47 cm/s -------- Regurgitant velocity, ED 62 cm/s ------- - Legend: Mean values are shown as u=mean value. Asterisk (*) saldana values outside specif ied normal range. I have personally reviewed the images an d have reviewed and edited the reported findings. Electronically signed by Kalpesh Smith MD 06/25/2015 16:09 Performing Organization Address City/State/ZIP Code Phon e Number [facility] documented in this encounter Visit Diagnoses Not on filedocumented in this encounter Care Teams Commercial Loan Closer Relationship Specialty Start Date End Date Danish Cao DO PCP - General 11/26/08 06/26/[address] [place], [place] [id number] Renee Corcoran, DAMASO PCP - General 06/27/16 01/16/19 Uriah Davis MD PCP - General 01/17/19 07/12/21 Tho Genao PCP - General [facility] 07/13/[address] [address] Shelton Smith, Cardiovascular Disease 1 [address] [facility] [address] [place] [address] documented as of this encounter
--- OUTSIDE RECORDS SUMMARY | 2022-02-07 01:33 | XMS_ITS | Encounter Summary ---
:1955 Author Organization [facility] Address [address] [place] [address] Care Team Providers Name Role Phone Uriah Davis MD Primary Care Provider Shelton Smith MD Unavailable [phone] Tho Genao Primary Care Provider Reason for Visit Reason Onset Date Comments Patient Information Update 06/11/2019 Encounter Details Date Type Department Care Team Description 06/11/2019 Telephone [facility] Maryellen Pantoja Pa tient Information [facility] Cardiology Clin ic UPPER CUTTER OUT Update [address] [place] [address] [address] [place] [address] Social History Tobacco Use Types [...] this encounter Miscellaneous Notes Telephone Encounter - Gray De La Torre RN - 06/14/2019 0925 EST Put an FYI and a Specialty Comment in patients chart for a reminder. elephone Encounter - Macy Mina APRN - 06/11/2019 1808 EST Issac, Is there a way to michael his chart somehow as a reminder to call monthly with his loop recorder results? There is no way to do that in the [employer] program. Macy Carreno elephone Encounter - Gray De La Torre RN - 06/11/2019 1710 EST Contacted pts (Angela Garcia) and gave her the message. She stated that she needs to have a notification after each time there is a reading for multiple reasons: *His battery is due to run out soon and she doesn't know if it actually is sending or not without being notified. *He was in [place] for 17 hours straight when [facility] was running things and nobody was notified and we weren't told until we were at an appt weeks later. *We received a bill for a reading in April without knowing if a reading was ever done and we don't pay for things unless we know they were done. *I'm not asking for every patient to be called, just my . I reassured Angela that his readings are coming through and that if they were not, then we would know to check on him if we were not receiving a reading. I encouraged her to speak to the provider when they come in for their check in the office as well to relay her concerns. GRAY DE LA TORRE RN elephone Encounter - Macy Mina APRN - 06/11/2019 1201 EST Celeste, Please let her know that no news is good news. We will call with any pertinent findings. Wehave to handle these this way because of the volume of pts. we have to monitor. And, we are receiving his just fine. We will review findings when they come in the office too. Macy Carreno. elephone Encounter - Celeste Pisano RN - 06/11/2019 1134 EST To Macy Mina - please advise on remote device checks and FYI that pt would like note each device check on how it is doing. elephone Encounter - Leah Cazares - 06/11/2019 1126 EST Pts called upset that she hasnt been notified of the last two months of reads on Bill's remote device. When he was with [facility], Macy would send out a email stating that it was read and all was ok. They would like to continue getting this notification as he is getting low on his battery. documented in this encounter Plan of Treatment Upcoming Encounters Date Type Specialty Care Team Description 09/13/2022 Office Visit Cardiology Shelton Smith MD [address] [place] [address] [address] [place] [address] (Wo rk) documented as of this encounter Visit Diagnoses Not on filedocumented in this encounter Care Teams Mother'S Helper Relationship Specialty Start Date End Date Uriah Davis MD PCP - General 01/17/19 07/12/21 Tho Genao PCP - General [facility] 07/13/[address] [phone] Smith, Shelton Lb, Cardiovascular Disease 1 [address] [facility] [address] [place] [address] documented as of this encounter
--- OUTSIDE RECORDS SUMMARY | 2022-02-07 01:33 | XMS_ITS | Encounter Summary ---
:[address] [facility] Address [address] [place] [address] Care Team Providers Name Role Phone Danish Cao DO Primary Care Provider Encounter Details Date Type Department Care Team Description 11/19/2012 Anti-coag visit [facility] Yehuda Manriquez MD Cardiology - [place] [address] [place] [address] (Wo rk) Social History Tobacco [...] encounter Progress Notes Keaton Manriquez MD - 11/23/2012 1312 EDT Keaton Manriquez MD Valerie matos RN - 11/20/2012 1314 EDT Instructions confirmed; Protime correlates w/ INR Gerald Sanchez - 11/19/2012 1420 EDT Pt's INR today is 2.6. Reviewed encounter with Valerie Pitt RN who advised pt should take the following dosing plan: stay on current dose and test again in three weeks, on 12/10. Contacted pt by email and reviewed result and instructions. Pt replied after hours to verify receipt and understanding of sa me. Encounter routed to Valerie Pitt for sign off. documented in this encounter Plan of Treatment Upcoming Encounters Date Type Specialty Care Team Description 09/13/2022 Office Visit Cardiology Shelton Smith MD [address] [place] [address] [address] [place] [address] (Wo rk) documented as of this encounter Procedures Procedure Name Priority Date/Time Associated Diagnosis Comme nts PROTIME Routine 11/19/2012 7:50 EDT Results for this procedure are i n the results section . documented in this encounter Results PROTIME (11/19/2012 7:50 EDT) Pathologist Sig nature Protime, External [facility] INR, External 2.6 [facility] Specimen Blood specimen (specimen) Performing Organization Address City/State/ZIP Code Phon e Number [facility] documented in this encounter Visit Diagnoses Not on filedocumented in this encounter Care Teams Grapple Operator Relationship Specialty Start Date End Date Danish Cao DO PCP - General 11/26/08 06/26/[address] [place] [address] documented as of this encounter
--- OUTSIDE RECORDS SUMMARY | 2022-02-07 01:33 | XMS_ITS | Encounter Summary ---
:1955 Author Organization [facility] Address [address] [place] [address] Care Team Providers Name Role Phone Renee Corcoran FISH BAILER Primary Care Provider Reason for Visit Reason Onset Date Comments Confirmation 08/30/2016 confirmed appt with PT Encounter Details Date Type Department Care Team Description 08/30/2016 Telephone [facility] Cardiothoracic Surgery - MD Danita (confirmed appt with [facility] [address] [facility] PT) [id number] [place] [address] [phone] Social History Tobacco Use Types Packs/Day [...] this encounter Miscellaneous Notes Telephone Encounter - Kalpesh Wright - 08/30/2016 1126 EST Confirmed consultation appointment with patient for 08/31/16 at 11:[address] Borrego. Informed patient to check in at [facility] for appointment. Advised to bring updated medication list and to take all regular medications as scheduled.If patient has any questions to call the office at [phone]. documented in this encounter Plan of Treatment Upcoming Encounters Date Type Specialty Care Team Description 09/13/2022 Office Visit Cardiology Shelton Smith MD [address] [place] [address] [phone] (Wo rk) documented as of this encounter Visit Diagnoses Not on filedocumented in this encounter Care Teams Margarine Maker Relationship Specialty Start Date End Date Renee Corcoran NP PCP - General 06/27/16 01/16/19 documented as of this encounter
--- OUTSIDE RECORDS SUMMARY | 2022-02-07 01:33 | XMS_ITS | Encounter Summary ---
:1955 Author Organization [facility] Address [address] [place] [address] Care Team Providers Name Role Phone Uriah Davis MD Primary Care Provider Reason for Visit Reason Onset Date Comments Appointment Related 05/24/2019 Appointment Related 07/02/2019 Encounter Details Date Type Department Care Team Description 05/24/2019 Telephone [facility] Vipin Bliss Appoint ment Related; Cardiothoracic Surgery - MD [place] Appointment Related [place] [address] [phone] [place], [address] [place] [address] (Wo rk) Social History Tobacco [...] this encounter Miscellaneous Notes Telephone Encounter - Heaven Raygoza - 07/03/2019 0911 EST Patient calling to reschedule his appointment with Dr. Bliss on 08/05/19, as he has a conflicting appointment at [facility] on the same day. Rescheduled to 08/12/19 at 8:45 am. Telephone Encounter - Olamide Saenz - 07/02/2019 0910 EST Patient scheduled to see Dr. Bliss on 08/05/19 at 10:[address] results and discuss plan. Per Heaven Raygoza's last note, patient requesting to go to [facility] for labs. Lab order in [facility] for Creatinine. Lab order faxed to [facility] Registration at [phone]. Telephone Encounter - Heaven Raygoza - 07/02/2019 0851 EST Patient calling to confirm CT appointment and request that his creatinine be drawn at [facility], as it's closer to his home. Advised that patient is okay to get blood drawn at [facility]. We will have records pushed over once completed. elephone Encounter - Olamide Saenz - 07/01/2019 1316 EST Images from the original note were not included. Authorization received... Email sent to Radiology Scheduling to request CT be done in the month of June, as patient has met his deductible and having test in July will cause a financial hardship. Await response. elephone Encounter - Olamide Saenz - 06/24/2019 1452 EST Images from the original note were not included. In-basket message from pre-cert department... Letter mailed to patient's home address on file to request he contact pre- registration with his updated insurance info. elephone Encounter - Olamide Saenz - 06/06/2019 1310 EST Order now in Epic. Request for prior auth sent to pre-cert department. Once prior auth is received, I will schedule patient's CT and OV with Dr. Bliss on the same day. Telephone Encounter - Olamide Seanz - 06/05/2019 1511 EST Awaiting order for CTA chest - TIFF[facility] team aware. elephone Encounter - Heaven Raygoza - 05/24/2019 0919 EDT Patient calling because he believes he is supposed to have an appointment with Dr. Bliss in June 2019. According to Dr. Bliss's last note, patient is to have a follow up with Dr. Bliss in June 2019 with a CTA chest. Advised that patient is on our reminder list for this month and we will be calling in the next couple of weeks with appointment information. documented in this encounter Plan of Treatment Upcoming Encounters Date Type Specialty Care Team Description 09/13/2022 Office Visit Cardiology Shelton Smith MD [address] [place] [address] [address] [place], [place] [phone] (Wo rk) documented as of this encounter Visit Diagnoses Not on filedocumented in this encounter Care Teams Display Designer Outside Relationship Specialty Start Date End Date Uriah Davis MD PCP - General 01/17/19 07/12/21 documented as of this encounter
--- OUTSIDE RECORDS SUMMARY | 2022-02-07 01:33 | XMS_ITS | Encounter Summary ---
:1955 Author Organization [facility] Address [address] [place] [address] Care Team Providers Name Role Phone Uriah Davis MD Primary Care Provider Encounter Details Date Type Department Care Team Description 08/12/2019 Orders Only [facility] Beatriz Perales MD Radiology - [place] [address] [place] [address] [place] [address] [phone] Social History Tobacco Use Types Packs/Day Years [...] Office Visit Cardiology Shelton Smith MD [address] [facility] [address] [place] [address] (Wo rk) documented as of this encounter Visit Diagnoses Not on filedocumented in this encounter Care Teams Machine Inspector Relationship Specialty Start Date End Date Uriah Davis MD PCP - General 01/17/19 07/12/21 documented as of this encounter
--- OUTSIDE RECORDS SUMMARY | 2022-02-07 01:34 | XMS_ITS | Encounter Summary ---
:1955 Author Organization [facility] Address [address] [place] [address] Care Team Providers Name Role Phone Nash Danish Wells DO Primary Care Provider Encounter Details Date Type Department Care Team Description 09/28/2012 Anti-coag visit [facility] Yehuda Manriquez MD Cardiology - [place] [address] [place] [address] (Wo rk) Social History Tobacco [...] 10/01/2012 1433 EDT Omari Mckeon MD Valerie Leyva, RN - 10/01/2012 1328 EDT Pt started warfarin on 09/28, not 09/26. Gerald Sanchez - 09/28/2012 1537 EST Pt referred [facility] with afib for repeat ablation on 10/09/12. He restarted Coumadin on 09/26 at 5 mg daily and will have a protime on 10/01. Pt picked up new supply of 2 mg tabs. MD intro letter faxed to Dr. Danish Cao. Protime standing order faxed to [facility]. Ed packet with [employer] box mailed to pt's home address. documented in this encounter Plan of Treatment Upcoming Encounters Date Type Specialty Care Team Description 09/13/2022 Office Visit Cardiology Shelton Smith MD [address] [place] [address] [address] [place] [address] (Wo rk) documented as of this encounter Visit Diagnoses Not on filedocumented in this encounter Care Teams Mortician Helper Relationship Specialty Start Date End Date Danish Cao DO PCP - General 11/26/08 06/26/[address] [place], [place] [address] documented as of this encounter
--- OUTSIDE RECORDS SUMMARY | 2022-02-07 01:34 | XMS_ITS | Encounter Summary ---
:1955 Author Organization [facility] Address [address] [place] [address] Care Team Providers Name Role Phone Danish Cao Russell DO Primary Care Provider Encounter Details Date Type Department Care Team Description 08/29/2011 Anti-coag visit [facility] Yehuda Manriquez MD Cardiology - [place] [address] [place] [address] (Wo rk) Social History Tobacco [...] encounter Progress Notes Omari Mckeon MD - 08/30/2011 1551 EST Omari Mckeon MD Valerie Swenson, ROBBY - 08/29/2011 1359 EST No warfarin dose change. Left message for pt and advised pt to call back w/ questions and to confirm message received. documented in this encounter Plan of Treatment Upcoming Encounters Date Type Specialty Care Team Description 09/13/2022 Office Visit Cardiology Shelton Smith MD [address] [place] [address] [address] [place] [address] (Wo rk) documented as of this encounter Procedures Procedure Name Priority Date/Time Associated Diagnosis Comme nts PROTIME Routine 08/29/2011 11:21 EST Results for this procedure are i n the results section . documented in this encounter Results PROTIME (08/29/2011 11:21 EST) Pathologist Sig nature Protime, External [facility] INR, External 2.5 [facility] Specimen Blood specimen (specimen) Performing Organization Address City/State/ZIP Code Phon e Number [facility] documented in this encounter Visit Diagnoses Not on filedocumented in this encounter Care Teams Experimental Display Builder Relationship Specialty Start Date End Date Danish Coa DO PCP - General 11/26/08 06/26/[address] [place] [address] documented as of this encounter
--- OUTSIDE RECORDS SUMMARY | 2022-02-07 01:34 | XMS_ITS | Encounter Summary ---
:1955 Author Organization [facility] Address [address] [place] [address] Care Team Providers Name Role Phone Danish Cao Primary Care Provider Encounter Details Date Type Department Care Team Description 11/11/2010 Anti-coag visit [facility] Yehuda Manriquez MD Cardiology - [place] [address] [place] [address] (Wo rk) Social History Tobacco Use Types Packs/Day Years Used Date Never Assessed Alcohol Use Standard Drinks/Week Comments Yes 0 [...] mental, or emotional condition, do Ye s 11/10/2010 you have serious difficulty concentrating, remembering, or making decisions? (5 years old or older) documented as of this encounter Progress Notes Keaton Manriquez MD - 11/12/2010 1127 EDT Keaton Manriquez MD, MD Mihaela Leyvan, ROBBY - 11/11/2010 1058 EDT Pt received 5 mg yesterday. Advised Tamara to discharge pt w/ instructions to take 5 mg daily and retest again on Monday, 11/15. She will give pt discharge instructions. documented in this encounter Plan of Treatment Upcoming Encounters Date Type Specialty Care Team Description 09/13/2022 Office Visit Cardiology Shelton Smith MD [address] [place] [address] [address] [place] [phone] (Wo rk) documented as of this encounter Visit Diagnoses Not on filedocumented in this encounter Care Teams Phd Intern Relationship Specialty Start Date End Date Danish Cao DO PCP - General 11/26/08 06/26/[address] [place] [address] documented as of this encounter
--- OUTSIDE RECORDS SUMMARY | 2022-02-07 01:34 | XMS_ITS | Encounter Summary ---
:1955 Author Organization [facility] Address [address] [place] [address] Care Team Providers Name Role Phone Danish Cao Primary Care Provider Reason for Visit Reason Onset Date Comments Irregular Heart Beat 12/15/2010 Encounter Details Date Type Department Care Team Description 12/15/2010 Telephone [facility] Valerie Pitt RN Irre gular Heart Beat Cardiology - [place] [address] [place] [address] Social History Tobacco Use Types Packs/Day [...] this encounter Miscellaneous Notes Telephone Encounter - Valerie Pitt RN - 12/17/2010 1566 EDT Pt updated via email, no new recommendations from Dr. Hendricks. elephone Encounter - Valerie Pitt RN - 12/16/2010 0957 EDT Pt called w/ update. Episode of afib started at approximately noon yesterday and lasted until 6 pm.Currently in sinus rhythm. Advised pt that I would discuss this w/ Dr. Hendricks tomorrow and call pt w/ any updated recommendations. Pt expresses understanding. elephone Encounter - Gerald Da Silva - 12/16/2010 0821 EDT Pt called @ 0815 to report he went to ER yesterday w/ Afib. He did spontaneously convert. He will beback home @ 0930--going to get some garden supplies--and would like to speak to Valerie. Either she cancall, or he will call back mid morning. [phone] signed by Gerald Da Silva at 12/16/2010 8:21 EDTTelephone Encounter - Valerie Pitt RN - 12/15/2010 1452 EDT Pt sent email below, received @ 1306: Valerie I am in afib heartrate 180 plus Bill My response @ 1306 and pt's reply @ 14:03: went into it at noon still over 180 feel really lightheaded and crappy Yonis On December 15, 2010 at 1:06 PM, Valerie Pitt <[email or web address]> wrote: How long have you been in it and how are you feeling? Pt replies @ 14:13: will do thank you so much Valerie Somers documented in this encounter Plan of Treatment Upcoming Encounters Date Type Specialty Care Team Description 09/13/2022 Office Visit Cardiology Shelton Smith MD [address] [place] [address] [address] (Wo rk) documented as of this encounter Visit Diagnoses Not on filedocumented in this encounter Care Teams Financial Sales Professional Relationship Specialty Start Date End Date Danish Cao, PCP - General 11/26/08 06/26/16 [address] [facility] [place] [address] documented as of this encounter
--- OUTSIDE RECORDS SUMMARY | 2022-02-07 01:34 | XMS_ITS | Encounter Summary ---
:1955 Author Organization [facility] Address [address] [place] [address] Care Team Providers Name Role Phone Danish Cao DO Primary Care Provider Reason for Visit Reason Onset Date Comments Medication Management 09/25/2012 Encounter Details Date Type Department Care Team Description 09/25/2012 Telephone [facility] Rex Hendricks, Medication Management Cardiology - [place] [address] [place] [phone] (Wo rk) Social History Tobacco Use Types [...] or older) documented as of this encounter Ordered Prescriptions Prescription Sig Dispensed Refills Start Date End Date warfarin (COUMADIN) 2 mg Take 2.5 Tabs by 75 Tab 5 09/2610/10/2012 tablet mouth daily. documented in this encounter Miscellaneous Notes Telephone Encounter - Kimberly Naik - 09/26/2012 0904 EST E-scribed script for Coumadin to patients pharmacy per request elephone Encounter - Francia Stacy - 09/25/2012 1703 EST Patient would like a call regarding getting his coumadin ordered. He states he uses the [facility] in [place]. Please call in the script and call the pt when that is done and he will pick it up in the morning. Thanks documented in this encounter Plan of Treatment Upcoming Encounters Date Type Specialty Care Team Description 09/13/2022 Office Visit Cardiology Shelton Smith MD [address] [place] [address] [address] [place] [address] (Wo rk) documented as of this encounter Visit Diagnoses Not on filedocumented in this encounter Care Teams Graphic Manager Relationship Specialty Start Date End Date Danish Cao DO PCP - General 11/26/08 06/26/[address] [place] [address] documented as of this encounter
--- OUTSIDE RECORDS SUMMARY | 2022-02-07 01:34 | XMS_ITS | Encounter Summary ---
:1955 Author Organization [facility] Address [address] [place] [address] Care Team Providers Name Role Phone Danish Cao DO Primary Care Provider Reason for Visit Reason Comments Follow-up 2 week follow up to 2nd abla tion, was in afib 25hours this week, episode ended about 7pm last night. Heartrate stayed above 140 the entire time. Encounter Details Date Type Department Care Team Description 11/25/2010 Office Visit [facility] Deyanira Romero ([facility]) Cardiology - Sayra Rangel NP (Primary Dx) [address] [place], [place] [address] [place] [address], [facility] [address] [place] [address] (Wo rk) Social History Tobacco [...] Taken Comments Blood Pressure - - Pulse 78 11/25/2010 1300 EDT Temperature - - Respiratory Rate - - Oxygen Saturation - - Inhaled Oxygen Concentration - - Weight 68 kg (150 lb) 11/25/2010 1300 EDT Height 177.8 cm (5' 10) 11/25/2010 1300 EDT Body Mass Index 21.52 11/25/2010 1300 EDT documented in this encounter Functional Status Cognitive Status Response Date of Assessment Because of a physical, mental, or emotional condition, do Ye s 11/10/2010 you have serious difficulty concentrating, remembering, or making decisions? (5 years old or older) documented as of this encounter Patient Instructions Patient InstructionsDeyanira Romero NP - 11/25/2010 13:40 EDT You may stop the coumadin at 3 months when Valerie tells you to stop. At that point switch to an aspirin a day. We will see you back in 6 months for follow up. Please call sooner if your symptoms persist. documented in this encounter Progress Notes Deyanira Romero NP - 12/02/2010 1532 EDT PROGRESS/FOLLOWUP NOTE - 11/25/2010 Danish Cao DO [address], [address] [place] [address] Cao: I had the pleasure of seeing your patient, Braulio Garcia, in followup today in cardiac arrhythmia clinic. As you know, Mr Garcia is a very pleasant 54-year-old gentleman with a past medical history significant for paroxysmal atrial fibrillation. He is status post ablation in August of 2008. He had not tolerated multiple antiarrhythmic medications in the past and had been noted to be in a hypercoagulable state during his previous ablation; however, a complete workup found no specific abnormality of coagulation. Mr Garcia unfortunately was having further episodes of his atrial fibrillation and underwent a second procedure for cardiac ablation on 11/10/2010. He did very well following the procedure. He underwent a redo of the pulmonary vein encircling and isolation of the veins, remained in sinus rhythm postprocedure, and was discharged home. I am seeing him today at the 2-week followup michael as he has been feeling quite well since his discharge, had some complaints of what sounds like a viral GI episode that lasted 2 days. He had a couple of days of stomach cramps and back pain, although he feels very strongly that this was associated witha slightly higher than therapeutic Coumadin level. It did taper off, was associated with some diarrhea; however, he had no fever, no chills, no cough or colds. He was doing well up until Monday of this week where he noticed feeling somewhat lightheaded and dizzy initially and then his heart started to race. He remained with a heart rate of about 120 for about 24 hours; with activity, he would go up to 180 to 220 beats per minute. However, he was never unable to function. He denies having lightheadedness or dizziness. There was no chest pain, no presyncope,no syncope, and no chest pain. Prior to his procedure, his atrial fibrillation symptoms, were, headache, palpitations and fatigue. He would find that he was extremely wiped out following an AFib episode; however, with this most recent episode on Monday of this week, he did not even notice converting back to sinus rhythm and noticed no fatigue whatsoever. He also denies having any difficulty swallowing. He has had no sore throat, no fever.His groins have healed. here is no redness, no drainage, no swelling noted. Complete problem list includes: 1. Atrial fibrillation. Complete medication list includes: 1. Multivitamin. 2. Vitamin C 500 mg. 3. Coumadin as directed. On physical exam . His pulse was 78 and regular. His weight was 68 kilos. His lungs are clear bilaterally. Cardiovascular: S1, S2, regular rate and rhythm, no murmurs, rubs or gallops. He has no JVD. His abdomen is soft, nontender. Bowel sounds are active. Extremities: There is no edema. No rash. His pulses are palpable. EKG shows normal sinus rhythm with an occasional PVC. Heart rate of 70. Assessment: Mr Garcia has paroxysmal atrial fibrillation. He has had an episode lasting anywhere from24 to 27 hours. Since that time, however, he has remained symptom free. Overall, he is doing quite well. He has had no episodes of feeling lightheaded or dizzy, no shortness of breath, no chest pain, no presyncope or syncope. I have instructed Mr Garcia that he needs to remain on the Coumadin for the 3-month postablation period. At that time he can discontinue the Coumadin and change to an aspirin a day for life. I also instructed him to call our office if he has another episode of symptoms that feellike his atrial fibrillation. The patient has a good understanding of the plan and he will give us acall if need be. Thank you very much for allowing us to participate in the care of this very pleasant gentleman. Please do not hesitate to call if you have questions or concerns. Sincerely, Electronically Signed by Deyanira Romero NP 12/02/2010 15:32 Deyanira Romero NP - Deyanira Romero NP P - [facility] Job ID: SM Doc ID: [id number] Ext Doc ID: [id number] cc: Danish Cao DO Deyanira Romero NP - 11/25/2010 1333 EDT This office note has been dictated. documented in this encounter Miscellaneous Notes Scanned Note-Null - Residence Supervisor, Scan - 12/08/2010 0028 EDTAssociated Order(s): ECG REPORT - SCANNED Scanned Note-Null - Residence Supervisor, Scan - 11/28/20102015 EDTAssociated Order(s): ECG REPORT - SCANNED documented in this encounter Plan of Treatment Upcoming Encounters Date Type Specialty Care Team Description 09/13/2022 Office Visit Cardiology Shelton Smith MD [address] [place] [address] [address] [place] [address] (Wo rk) Scheduled Orders Name Type Priority Associated Diagnoses Order S chedule EKG 12-LEAD ECG Routine A-fib ([facility]) Ordered: 11/2010 documented as of this encounter Procedures Procedure Name Priority Date/Time Associated Diagnosis Comme nts ECG REPORT - 12/08/2010 0:28 EDT Results for this SCANNED procedure are i n the results section. ECG REPORT - 11/28/2010 20:16 Results for this SCANNED EDT procedure are i n the results section. documented in this encounter Results ECG REPORT - SCANNED (12/08/2010 0:28 EDT) Specimen Narrative This result has an attachment that is no t available. Procedure Note Residence Supervisor, Scan - 12/08/2010 0:28 ED T ECG REPORT - SCANNED (11/28/2010 20:16 EDT) Specimen Narrative This result has an attachment that is no t available. Procedure Note Residence Supervisor, Scan - 11/28/2010 20:16 E DT documented in this encounter Visit Diagnoses Diagnosis A-fib (HCC-CMS) (HCC) - Primary Atrial fibrillation documented in this encounter Care Teams Reinsurance Analyst Relationship Specialty Start Date End Date Danish Cao DO PCP - General 11/26/08 06/26/16 [address] [id number] documented as of this encounter
--- OUTSIDE RECORDS SUMMARY | 2022-02-07 01:34 | XMS_ITS | Encounter Summary ---
:1955 Author Organization [facility] Address [address] [place] [address] Care Team Providers Name Role Phone Danish Cao DO Primary Care Provider Encounter Details Date Type Department Care Team Description 06/14/2011 - Hospital Encounter [facility] RuthieRex 06/15/2011 Cardiac/Telemetry MD [facility] [address] [place] [address], [facility] [address] [place] [address] (Wo rk) Social History Tobacco [...] Sign Reading Time Taken Comments Blood Pressure 128/75 06/15/2011 0759 EST Pulse - - Temperature 36.7 ??C (98.1 ??F) 06/15/2011 0759 EST Respiratory Rate 18 06/15/2011 0759 EST Oxygen Saturation 100% 06/15/2011 0759 EST Inhaled Oxygen Concentration - - Weight 65.8 kg (145 lb) 06/08/2011 1021 EST Height 177.8 cm (5' 10) 06/08/2011 1021 EST Body Mass Index 20.81 06/08/2011 1021 EST documented in this encounter Functional Status Cognitive Status Response Date of Assessment Because of a physical, mental, or emotional condition, do Ye s 06/14/2011 you have serious difficulty concentrating, remembering, or making decisions? (5 years old or older) documented as of this encounter Discharge Summaries Kalpesh Quijano MD - 06/14/2011 1350 EST Discharge Summary Chief Complaint/Reason for Admission: Paroxsymal atrial fibrillation Principal/Final Diagnosis: Paroxsymal atrial fibrillation Principal Procedure: Radiofrequency ablation Date: 06/14/2011 Patient Active Problem List Diagnoses ??? A-fib Condition at Discharge: Excellent Assessment at Discharge: Vital signs: Patient Vitals for the past 12 hrs: BP Heart Rate Resp Temp SpO2 O2 Device 06/15/11 0759 128/75 mmHg 76 BPM 18 36.7 ??C (98.1 ??F) 100 % Room air 06/14/11 2239 133/90 mmHg 81 BPM 18 37 ??C (98.6 ??F) 99 % Room air Hospital Course: Braulio Garcia is a 55 year old male with a history of paroxsymal atrial fibrillation, s/p RF ablation x2 who presented for his 3rd radiofrequency ablation procedure for persistent symptomatic atrial fibrillation. The procedure included re-isolation of the pulmonary veins and redo wideencircling of the left sided veins. REPEAT INR ON MONDAY Diagnostic Studies: Transesophageal Echocardiogram: STUDY CONCLUSIONS* Summary: 1. Technical notes: Limited pre-ablation FREEDOM 2. Left ventricle: Systolicfunction was normal. The estimated ejection fraction was 60- 65%. Wall motion was normal; there were no regional wall motion abnormalities. 3. Aortic root: The aortic root was mild-moderately dilated (45 mm). 4. Ascending aorta: The ascending aorta was normal in size. 5. Left atrium: No evidence of thrombus in the atrial cavity or appendage. The appendage was morphologically a left appendage, multilobulated, and of normal size. Emptying velocity was normal. Last Lab Results at Discharge: BUN: Lab Results Component Value Date BUN 22 06/13/2011 Creatinine: Lab Results Component Value Date CREATININE 0.90 06/13/2011 CBC: Lab Results Component Value Date WBC 4.06 06/13/2011 RBC 5.25 06/13/2011 HGB 16.2 06/13/2011 HCT 46.3 06/13/2011 MCV 88 06/13/2011 MCH 30.9 06/13/2011 MCHC 35.1 06/13/2011 PLT 287 06/13/2011 Electrolytes: Lab Results Component Value Date NA 139 06/13/2011 K 4.9 06/13/2011 CL 102 06/13/2011 CO2 30 06/13/2011 INR: Lab Results Component Value Date INR 2.5* 06/14/2011 INR 2.8* 06/13/2011 INR 2.2 06/06/2011 PROTIME 30.0* 06/14/2011 PROTIME 32.9* 06/13/2011 PROTIME 33.2* 11/11/2010 Lab Results Component Value Date HGBA1C 5.4 08/26/2010 cc: PCP: Danish Cao MD Referring Prov:Danish Cao Discharge Summary Completed: YES I saw and examined the patient. I agree with the findings, assessment and plan as outlined by the resident/fellow/nurse practitioner documented in this encounter Discharge Instructions InstructionsAlvina Reynolds NP - 06/14/2011 Discharge Instructions for A-fib Ablation Patients 1. [...] ?? Resume prior medications unless otherwise instructed 5. Appointments: See Rex Garcia MD. On July 07 at 3:00 Have your blood drawn to have your INR checked on MondayJune 20 IN THE MORNING If you have any questions or concerns, please don't hesitate to call the Cardiac Arrhythmia Service at [facility] at x [phone] (or dial direct-[phone]) and leave a message for Valerie Pitt RN and she will return your call as soon as possible. documented in this encounter Medications at Time of Discharge Medication Sig Dispensed Refills Start Date End Date ascorbic acid (VITAMIN Take 500 mg by mouth 0 C) 500 mg tablet daily. Multivitamins with Take 1 Tab by mouth 0 Minerals Tab daily. pantoprazole (PROTONIX) Take 1 Tab by mouth 30 Tab 0 07/07/2011 40 mg tablet daily. warfarin (COUMADIN) 2 Take 2 Tabs by mouth 75 Tab 4 05/2507/07/2011 mg tablet daily. As directed warfarin (COUMADIN) 2 warfarin dose is 5 mg 90 Tab 3 07/07/2011 mg tabletIndications: Monday and Monday; 4 atrial fibrillation mg daily the other days of the week. Indications: ATRIAL FIBRILLATION warfarin (COUMADIN) 5 Take 2 mg by mouth 0 07/07/2011 mg tablet daily. Taking 2mg as directed. documented as of this encounter Ordered Prescriptions Prescription Sig Dispensed Refills Start Date End Date pantoprazole (PROTONIX) Take 1 Tab by mouth 30 Tab 0 07/07/2011 40 mg tablet daily. warfarin (COUMADIN) 2 warfarin dose is 5 mg 90 Tab 3 07/07/2011 mg tabletIndications: Monday and Monday; 4 atrial fibrillation mg daily the other days of the week. Indications: ATRIAL FIBRILLATION warfarin (COUMADIN) 2 warfarin dose is 5 mg 90 Tab 3 11/ 06/15/2011 mg tabletIndications: Monday and Monday; 4 atrial fibrillation mg daily the other days of the week. Indications: ATRIAL FIBRILLATION pantoprazole (PROTONIX) Take 1 Tab by mouth 30 Tab 0 06/15/2011 40 mg tablet daily. documented in this encounter Discharge Disposition Disposition Code Departure Means Destination Home or Self Care documented in this encounter Progress Notes Syed Geller Sa, MD - 06/14/2011 1427 EST Patient seen for lower abdominal pain after the procedure. He reports low, central, low grade abdominal discomfort. No back pain. He believes it is related to gas. Abdomen is soft. BP stable. Access site is intact. We will continue to monitor. Leia Schulz - 06/14/[address] Cintron aware of stomach pain, pt states it does feel better. Dr Cintron said he would be by to check on him. Groin sites and dressings look good, CDI. CSMT's are Good. Feet cool to touch , offered ptwarm blanket , he declined. Leia Schulz - 06/14/2011 1356 EST A line dc'd. Pt complaining of stomach ache, gave him zofran. He stated he is having some relief. Denies chest pain or sob. HR NSR 65. Groin sites clean dry and intact. Rasheeda Pool, ROBBY - 06/14/2011 1250 EST 1235 Admit to PACU, anesthesia in attendance, side rails up, patient without complaints, sleepy, butarousable. 1312 Patient without complaints 12 lead EKG called for. Report to Leia Doyle. Jerri Whittington 06/14/2011 0722 EST 0640 Braulio Perrinis Arrived in CVU walking. Orders clarified with MD by charge nurse, Jerri. Orders then released and acknowledged by RN. Denies pain. Labs sent stat; EP prep completed. 0715 spouse at bedside, call tolentino with in reach, stretcher in low position, side rails up. Report toco-signing RN. 0720 To EP lab via stretcher with transport. TRICIA ColonN yla Oneill RN - 06/08/2011 1021 EST Braulio Garcia has been instructed as follows regarding medication administration for the day of the scheduled procedure. Date of Surgery: 06/14/11 Instructions for Taking Medications Day of Surgery Medication Last Dose Hold DOS Take DOS warfarin (COUMADIN) 5 mg tablet Per Cardiolgist Multivitamins with Minerals Tab yes ascorbic acid (VITAMIN C) 500 mg tablet yes documented in this encounter H&P Notes Rex Hendricks MD - 06/14/2011 0736 EST Cardiology H&P PCP: Danish Cao MD Chief Complaint: AFIB ablation HPI: 55 y.o. male with PAF. Please review prior notes for details. In brief, he has had 2 ablations (PVI/E). He has paroxysmal episodes that can last several hours. He has not tolerated AAD in the past. A 10-point review of systems was conducted. Pertinent positives are noted in HPI. Past Medical History Diagnosis Date ??? AF (atrial fibrillation) had ablation 2 yrs ago ??? Cancer skin cancer on face and back Prescriptions prior to admission Medication ??? warfarin (COUMADIN) 5 mg tablet ??? Multivitamins with Minerals Tab ??? ascorbic acid (VITAMIN C) 500 mg tablet Allergies as of 06/01/2011 - reviewed 04/28/2011 Allergen Reaction Noted ??? Amiodarone 10/13/2009 ??? Atenolol 10/13/2009 ??? Flecainide Other (See Comments) 10/13/2009 ??? Keflex (cephalexin) Nausea Only 10/13/2009 ??? Other - see comments 10/13/2009 History Social History ??? Marital Status: [...] hrs: BP Temp Temp src Resp SpO2 06/14/11 0655 134/99 mmHg - - 16 100 % 06/14/11 0645 142/101 mmHg 36.1 ??C (97 ??F) Temporal 16 100 % Gen: NAD, male appears stated age HEENT: PERRL, mmm, Neck: JVP ~ 5cm, CV: rrr, nl s1+s2, no m/r/g Lungs: CTAB Abd: soft, NT/ND, no OM, +BS Ext: no c/c/e Pulses: dpp 2+ and symmetric Neuro: A + O x 3, non-focal, moving all four extremities Data Lab Results Component Value Date/Time NA 139 06/13/2011 0846 NA 140 08/27/2008 0600 K 4.9 06/13/2011 0846 K 4.3 08/27/2008 0600 CL 102 06/13/2011 0846 CL 107 08/27/2008 0600 CO2 30 06/13/2011 0846 CO2 25 08/27/2008 0600 BUN 22 06/13/2011 0846 BUN 17 08/27/2008 0600 CREATININE 0.90 06/13/2011 0846 CREATININE 0.82 08/27/2008 0600 CALCIUM 9.3 08/26/2010 1648 MG 2.3 08/26/2010 1804 Lab Results Component Value Date/Time WBC 4.06 06/13/2011 0846 WBC 11.44* 08/27/2008 0600 HCT 46.3 06/13/2011 0846 HCT 40.0 08/27/2008 0600 PLT 287 06/13/2011 0846 PLT 262 08/27/2008 0600 MCV 88 06/13/2011 0846 MCV 89 08/27/2008 0600 Lab Results Component Value Date/Time INR 2.5* 06/14/2011 0708 INR 2.2 06/06/2011 0900 INR 1.3* 08/27/2008 0600 PTT 46* 11/10/2010 0650 PTT 43* 08/25/2008 1242 Lab Results Component Value Date/Time CHOL 177 08/27/2010 0609 CHOL 197 03/23/2009 1444 LDLBASE 102 08/27/2010 0609 HDL 58 08/27/2010 0609 TRIG 83 08/27/2010 0609 TRIG 201* 03/23/2009 1444 HGBA1C 5.4 08/26/2010 1804 No results found for this basename: BNP, CK, MB, TROPONINI ECG: PND A/P: 55 y.o. male with symptomatic PAF, s/p 2 ablation has recurrent AFIB. We will proceed to ablation. We will proceed to AFIB ablation. D/W Dr. Ruthie son sa, MD Physical Education Professor pager [phone] I have seen and examined the patient and agree with the above history and physical exam and assessment and plan. documented in this encounter Procedure Notes Global Marketing Coordinator, Scan - 06/27/2011 0853 ESTAssociated Order(s): ECG REPORT - SCANNED Global Marketing Coordinator, Scan - 06/20/20111913 ESTAssociated Order(s): ECG REPORT - SCANNED Global Marketing Coordinator, Scan - 06/20/20111913 ESTAssociated Order(s): CARDIAC CATHERIZATION REPORT - SCANNED pector, Rex Hatch MD - 06/14/2011 1219 EST Invasive Electrophysiology Procedure Date of Service/Procedure: 06/14/2011 Attending Physician: Rex Hendricks MD Fellow: Syed Cintron MD Pre-Procedure Diagnosis/Indication: paroxysmal atrial fibrillation. HPI: 55 y/o gentleman with symptomatic PAF. He has had 2 prior procedures (PVI and PVE) and recently has had recurrence of PAF. He does not tolerate antiarrhythmic drugs. A pre-procedure FREEDOM was negative for left atrial thrombus. Anesthesia: Local anesthesia was used., General anesthesia was used. Access: Right femoral vein 2 x 8.5 fr Left femoral vein 1 x 8.5 fr and 2 x 7.0 fr Procedure: She was brought to the [facility] Electrophysiology Laboratory on lure for -- Atrial fibrillation ablation The patient was brought to the electrophysiology laboratory in the fasting state. After informed consent was obtained, the patient was prepped and draped in the usual sterile fashion. Access was obtained using a modified Seldinger technique. All catheters were placed under fluoroscopic guidance. The Attending physician was present for the mejia portions of the procedure. Catheters: CS: #7 Fr deflactable decapolar electrode (2mm-5mm-2mm spacing) RAA: #6 Fr hexapolar electrode catheter (2 mm spacing; proximal ring 25 cm from tip) Lasso: #7 Fr deflectable circumferencial catheter (20, 1mm electrodes) 3.5 mm.-tip Thermocool [employer]: #7 Fr deflectable quadrapolar electrode (2 mm-5mm-2mm) [employer] intracardiac ultrasound catheter Pacing and recording were carried out from the right atrium, the left atrium, the right ventricle. Findings: Baseline Rhythm: Sinus (cycle length 1000 ms) AH: 50ms HV: 50 ms EP Study: Pacing from the RAA demonstrated 1:1 antegrade conduction through the AVN to 370 and wkb at 360 ms. Pacing from the right ventricle demostrated 1:1 retrograde conduction through the AVN to 320 and block at 310 ms. Parahisian pacing was consistent with retrograde conduction entirely over the AVN. Distal CS pacing did not unmask preexcitation. Ablation Procedure: Double Transseptal Procedure: A transseptal procedure was performed under fluoroscopic, pressure, and ICE guidance. An SL#1 sheathand dilator were placed in the SVC over an 0.32 wire. A BRK1 needle was the positioned 2mm proximal to the tip of the dilator and flushed. The needle/sheath/dilator were then positioned in the fossa ovalis under fluoroscopic, intracardiac US and pressure guidance. The needle was advanced into the leftatrium. The dilator was advanced over the needle and the sheath advanced over the wire. The needle and dilator were then removed and the sheath was flushed. Heparin bolus and infusion were begun to keep the ACT > 300 seconds. A second sheath was placed in the left atrium using the same technique asthe first sheath. Right atrial Systolic Pressure (mmHg): 7 Right atrial Diastolic Pressure (mmHg): 2 Right atrial mean Pressure (mmHg):4 Left atrial Systolic Pressure (mmHg): 15 Left atrial Diastolic Pressure (mmHg) :3 Left atrial mean Pressure (mmHg): 7 Pulmonary venogram was performed using the SL1 sheath. 3D Electro-anatomical Carto Mapping: Using the Thermocool catheter, a Carto shell of the left atrium and pulmonary veins was made. Note that his left atrium has a increased lateral diameter, in addition, the DANIELA is located in the path of a potential mitral isthmus line. Pulmonary Vein Encircling/Isolation: Interrogation of the pulmonary veins with lasso guidance demonstrated reconnections on all veins. The left and right sided pulmonary veins (PVs) were isolated with lasso guidance. RF was delivered at 30W max (25 W max when ablating the posterior left atrium or near the ostia of the veins) and esophagea l temperature was monitored throughout. The wide encircling around the left sided veins was also retouched. At this point the patient was in sinus rhythm, all PVs were isolated. The procedure was therefore concluded. Total fluoroscopy time 23 minutes. 70 ml contrast. Fluid input/ output was 1300/900 mL. Furosemide was not given. Summary of Procedure: 1. Reisolation of the pulmonary veins. 2. Redo wide encircling of the left sided veins 3. At the conclusion of the procedure the patient was in sinus rhythm. 4. No Complication Post-Procedure Condition: The condition of the patient was Good. Estimated Blood Loss: Minimal. Unless otherwise noted, there were no specimens removed, cultures obtained, or drains retained. Clinical Trial: The patient is enrolled in a clinical trial (Trial Name: group home follow up. ). Thetrial does not involve an investigational device exemption. Plan: bedrest for 4 hour(s), continue anticoagulation and Ketorolac for pericardial pain. At the completion of the procedure, the attending physician has explained the findings, therapies, any complications and treatment plan to the patient. With the patients consent, all family members andpatient support persons who were present at the conclusion of the procedure have been notified of these results and treatment plans as well. Anticoagulation Plan: warfarin dose 5 mg Tuesdays and Fridays. 4 mg 5x week. Medication changes: Start Proton Pump inhibitor. I was present for the mejia and critical portions of the procedure. documented in this encounter OR Notes OR PreOp - Global Marketing Coordinator, Scan - 06/20/2011 191 EST nesthesia Procedure Notes - Global Marketing Coordinator, Scan - 06/14/2011 1238 EST nesthesia Preprocedure Evaluation - Global Marketing Coordinator, Scan - 06/14/2011 0908 EST documented in this encounter Miscellaneous Notes Scanned Note-Null - Global Marketing Coordinator, Scan - 06/20/2011 210 EST canned Note- Null - Global Marketing Coordinator, Scan - 06/20/2011 191 EST canned Note- Null - Global Marketing Coordinator, Scan - 06/20/2011 191 EST canned Note- Null - Global Marketing Coordinator, Scan - 06/20/2011 1914 EST nesthesia Post-Eval - Radha Deleon APRN - 06/15/2011 1122 EST Post Anesthesia Evaluation Date of Service: 06/15/2011 The patient has been evaluated and assessed. If present, post anesthetic events are documented below. The last set of recorded vital signs and pain rating were reviewed: ,Numeric Pain Level (Scale 1-10): 0 Procedure detail: Anesthesia Type: General Level of Consciousness: Awake Vital Signs: Stable Post Op Pain: No complaints of pain or discomfort Ambulatory Status: Ambulating Additional follow up needed: No (patient to d/c today) Perioperative events: General Events: None Recall: Absent RADHA MAY 06/15/2011 11:22 lan of Renny - Calixto Faulkner RN - 06/15/2011 1022 EST Problem: CIRCULATORY STATUS Goal: Patient Has Stable Vital Signs And Fluid Balance Intervention: Assess rate, rhythm and regularity of pulses Including apical assessment for cardiology patients. D: Patient to be discharged per MD. A: IV removed, catheter tip intact. Telemetry removed. RN reviewed discharge instructions and medications with patient and . Patient received prescriptions, medication sheets, and discharge instructions. R: Patient expressed good understanding of discharge instructions. They have no questions at this time. Patient dressed independently. They left via wheelchair with . lan of Renny - Alva Xiong - 06/15/2011 0117 EST Problem: CIRCULATORY STATUS Goal: Patient Has Stable Vital Signs And Fluid Balance D: Pt s/p A-fib ablation. Pt in SR in the 70s with no ectopy. Pts Bilateral groin sites dry and intact. Denies CP, SOB or discomfort. Ambulating independently. Pt voided post cedeño removal. A: Assessment as documented in flowsheet. VS obtained per protocol. R: Pt sleeping. Will ctm. lan of Care - Jeanna Velasquez, ROBBY - 06/14/2011 1555 EST Problem: HOSPITAL ORIENTATION/SAFETY Goal: Oriented To Hospital Environment Outcome: Ongoing D: Patient arrived to [place] [address]. Vital signs noted. Tele applied. Patient NSR with HR in 90s. Patient denies chest pain, SOB, and discomfort. Patient denies complaints at this time. Patient oriented to room, equipment, and careplan. A: Assessment as documented in flowsheet. Admission database complete. R: RN will continue to monitor and document per protocol. Anesthesia Post-Eval - Walt Alcazar MD - 06/14/2011 1328 EST Post Anesthesia Evaluation Note Date of Service: 06/14/2011 Braulio Garcia, a 55 y.o. year old male has received General Anesthesia He has been evaluated, assessed and discharged from anesthesia care with stable cardiorespiratory function and alert mental status. The last set of recorded vital signs and pain rating were reviewed: Temp: 36.5 ??C (97.7 ??F) (06/14/11 1235), Heart Rate: 72 BPM (06/14/11 1300), BP: 117/76 mmHg (06/14/11 1300), Resp: 10 (06/14/11 1300), SpO2: 97 % (06/14/11 1300), Art Line Primary (ABP): 116/69 mmHg(06/14/11 1300),Numeric Pain Level (Scale 1-10): 0 Braulio Garcia participated in this evaluation unless otherwise noted. His pain, nausea and vomiting have been managed and his body temperature and fluid balance have been restored. Additional monitoring and assessment needs have been addressed. If present, any postoperative events are documented below. WALT ALCAZAR MD 06/14/2011 13:28 canned Note-Null - Global Marketing Coordinator, Scan - 06/14/2011557 EST canned Note- Null - Global Marketing Coordinator, Scan - 06/14/2011557 EST documented in this encounter Plan of Treatment Upcoming Encounters Date Type Specialty Care Team Description 09/13/2022 Office Visit Cardiology Shelton Smith MD [address] [place] [address] [address] [place] [address] (Wo rk) documented as of this encounter Procedures Procedure Name Priority Date/Time Associated Comments Diagnosis ECG REPORT - SCANNED 06/27/2011 8:53 EST Results for this procedure are i n the results section. ECG REPORT - SCANNED 06/20/2011 19:14 Res ults for this EST procedure are i n the results section. INVASIVE CARDIOLOGY 06/20/2011 19:14 Resu lts for this REPORT-SCANNED EST procedure are in the results section. EKG 12-LEAD Routine 06/14/2011 12:09 EST PROTIME STAT 06/14/2011 7:08 EST Results for this procedure are i n the results section. TYPE AND SCREEN STAT 06/14/2011 6:50 EST Resul ts for this procedure are i n the results section. documented in this encounter Results ECG REPORT - SCANNED (06/27/2011 8:53 EST) Specimen Narrative This result has an attachment that is no t available. Transcriptions Global Marketing Coordinator, Scan - 06/27/2011 8:53 ES T ECG REPORT - SCANNED (06/20/2011 19:14 EST) Specimen Narrative This result has an attachment that is no t available. Transcriptions Global Marketing Coordinator, Scan - 06/20/2011 19:[address] CARDIAC CATHERIZATION REPORT - SCANNED (06/20/2011 19:14 EST) Specimen Narrative This result has an attachment that is no t available. Transcriptions Global Marketing Coordinator, Scan - 06/20/2011 19:[address] (ABNORMAL) PROTIME (06/14/2011 7:08 EST) Pro Time 30.0 (H) 9.5 - 13.1 [facility] secs I.N.R. 2.5 (H) 0.9 - 1.1 [facility] Comment: Ratio Moderate Intensity Coumadin INR = 2.0-3.0 Adjustments in anticoagulant therapy dose should be based upon the INR and NOT the Pro Time. Specimen Blood specimen (specimen) Performing Organization Address City/[facility]/ZIP [facility] Phon e Number [facility] [address] [place] [address] SERVICES [facility] [address] [place] [address] TYPE AND SCREEN (06/14/2011 6:50 EST) Pathologist Sig nature ABO O [facility] Rh Factor Positive [facility] Antibody Screen NegativeComment: [facility] specimen expires 06/17/11 at 23:59 Specimen Blood specimen (specimen) Performing Organization Address City/[facility] Phon e Number [facility] [address] [place] [address] SERVICES [facility] [address] [place] [address] documented in this encounter Visit Diagnoses Not on filedocumented in this encounter Administered Medications Inactive Administered Medications - up to 3 most recent administrations Medication Order MAR Action Action Date Dose Rate Site ascorbic acid (VITAMIN C) tablet 500 Given 06/15/2011 8:35 EST 5 00 mg mg 500 mg, oral, DAILY, First dose on Mon06/14/11 at 1530, Until Discontinued, Routine Given 06/14/2011 17:00 EST 500 mg ketorolac (TORADOL) injection 15 mg Given 06/14/2011 13:01 EST 15 mg 15 mg, intravenous, PRN, 1 dose, Starting on Mon06/14/11 at 1207, Until Mon06/14/11 at 1301, Pain, Routine, Recovery (only) ketorolac (TORADOL) injection 15 mg Given 06/15/2011 5:07 EST 15 mg 15 mg, intravenous, EVERY 6 HOURS PRN, Starting on Mon06/14/11 at 1505, Until Mon06/15/11 at 1301, Pain, Routine, Postprocedure lactated ringers (LR) infusion New Bag 06/14/2011 15:23 EST 75 mL/hr at 75 mL/hr, intravenous, CONTINUOUS, Starting on Mon06/14/11 at 1230, Until Mon06/15/11 at 1301, Routine, Recovery (only) Rate Documented 06/14/2011 13:17 EST 75 mL/hr Multivitamins with Minerals tablet 1 Tab Given 06/15/2011 8:35 EST 1 Tablet 1 Tablet, oral, DAILY, First dose on Mon06/14/11 at 1530, Until Discontinued, Routine Given 06/14/2011 17:00 EST 1 Tablet ondansetron (PF) (ZOFRAN) injection 4 mg Given 06/14/2011 13:47 EST 4 mg 4 mg, intravenous, PRN, 1 dose, Starting on Mon06/14/11 at 1207, Until Mon06/14/11 at 1347, Nausea, Vomiting, Routine, Recovery (only) pantoprazole (PROTONIX) tablet 40 mg Given 06/15/2011 8:35 EST 40 mg 40 mg, oral, DAILY, First dose on Mon06/14/11 at 1530, Until Discontinued, Routine sodium chloride 0.9 % (NS) Rate Documented 06/14/2011 12:57 EST 30 mL/hr 30 mL/hr infusion at 30 mL/hr, 30 mL/hr, intravenous, CONTINUOUS, Starting on Mon06/14/11 at 0730, Until Mon06/14/11 at 1505, Routine, Preprocedure New Bag 06/14/2011 7:19 EST 30 mL/hr 30 mL/hr warfarin (COUMADIN) tablet 5 mg Given 06/14/2011 20:10 EST 5 mg 5 mg, oral, USER SPECIFIED (Once per day on Mon), First dose on Mon06/14/11 at 2100, Until Discontinued, Indications: atrial fibrillation, Is this a new start or continuation of therapy? Continuation, Routine documented in this encounter Discontinued Medications Medication Sig Discontinue Reason Start Date End Date aspirin 325 mg tablet Take 325 mg by mouth Error 04/28/2011 06/08/2011 daily. pantoprazole Take 1 Tab by mouth 06/15/2011 06/15/20 11 (PROTONIX) 40 mg daily. tablet warfarin (COUMADIN) 2 warfarin dose is 5 mg 06/15/2011 06/15/2011 mg tabletIndications: Monday and Monday; 4 atrial fibrillation mg daily the other days of the week. Indications: ATRIAL FIBRILLATION documented as of this encounter Historical Medications This list may reflect changes made after this encounter. Medication Sig Dispensed Refills Start Date End Date warfarin (COUMADIN) 5 mg Take 2 mg by mouth 0 07/07/2011 tablet daily. Taking 2mg as directed. added in this encounter Active and Recently Administered Medications Times are shown in EST. Scheduled Medication Order 06/13/2011 06/14/2011 06/15/2011 ascorbic acid (VITAMIN C) tablet 500 mg (CANCELED) 1700 (Given - Provider: Jeanna Velasquez RN) 0835 (Given - Provider: Calixto Faulkner RN) 500 mg, Oral, DAILY, First dose on Mon06/14/11 at 1530, Until D iscontinued Multivitamins with Minerals tablet 1 Tab (CANCELED) 1700 (Given - Provider: Jeanna Velasquez RN) 0835 (Given - Provider: Calixto Faulkner RN) 1 Tab, Oral, DAILY, First dose on Mon06/14/11 at 1530, Until Di scontinued pantoprazole (PROTONIX) tablet 40 mg 165 9 (Not Given - Provider: Jeanna Hung RN - Reason: Patient/family refused) 0835 (Given - Provider: Calixto Faulkner RN) 40 mg, Oral, DAILY, First dose on Mon06/14/11 at 1530, Until Di scontinued warfarin (COUMADIN) tablet 5 mg 2009 (Given - Pr ovider: Alva Xiong) 5 mg, Oral, USER SPECIFIED (Once per day on Mon), First dose on Mon06/14/11 at 2100, Until Discontinued Continuous Medication Order 06/13/2011 06/14/2011 06/15/2011 lactated ringers (LR) infusion (CANCELED) 1317 (Rate Documented - Provider: Leia Luna)1523 (New Bag - Provider: Jeanna Velasquez RN)1945 (Completed - Provider: Alva Xiong) at 75 mL/hr, Intravenous, CONTINUOUS, St arting Mon06/14/11 at 1230, Until Mon06/15/11 at 1301 sodium chloride 0.9 % (NS) infusion (CANCELED) 0719 (New Bag - Provider: Lennie Desouza RN)1257 (Rate Documented - Provider: Rasheeda Gaffeny, RN)1317 (Completed - Provider: Leia Luna) at 30 mL/hr, Intravenous, CONTINUOUS, St arting Mon06/14/11 at 0730, Until Mon06/14/11 at 1505 PRN Medication Order 06/13/2011 06/14/2011 06/15/2011 ketorolac (TORADOL) injection 15 mg (COMPLETED) 1301 (Given - Provider: Rasheeda Gaffney, ROBBY) 15 mg, Intravenous, PRN, 1 dose, Startin g Mon06/14/11 at 1207, Until Discontinued, Pain ketorolac (TORADOL) injection 15 mg (CANCELED) 0507 (Given - Provider: Alva Xiong) 15 mg, Intravenous, EVERY 6 HOURS PRN, S tarting Mon06/14/11 at 1505, Until Mon06/15/11 at 1301, Pain ondansetron (PF) (ZOFRAN) injection 4 mg (COMPLETED) 1347 (Given - Provider: Leia Luna) 4 mg, Intravenous, PRN, 1 dose, Starting Mon06/14/11 at 1207, Until Discontinued, Nausea, Vomiting documented in this encounter Orders Medications Ordered That Might Not Have Count Last Ord ered Date First Ordered Date Been Administered atropine 0.1 mg/mL 10 mL syringe 0.5 mg 1 06/14/20 11 heparin 1,000 unit/mL injection 1 06/14/2011 heparin in D5W 25,000 unit/250 mL infusion 1 06/14 ketorolac (TORADOL) 30 mg/mL (1 mL) 1 06/14/2011 injection lidocaine (XYLOCAINE) 2 % jelly 1 06/14/2011 lidocaine 10 mg/mL (1 %) injection 1 06/14/2011 naloxone (NARCAN) injection 0.2 mg 1 06/14/2011 protamine 10 mg/mL injection 1 06/14/2011 warfarin (COUMADIN) tablet 4 mg 1 06/14/2011 warfarin education book 1 Each 1 06/14/2011 EKG Orders Without Results Count Last Ordered Date Fir st Ordered Date EKG 12-LEAD 1 06/14/2011 Nursing Count Last Ordered Date First Ordered Date INSERT PERIPHERAL IV 1 06/14/2011 Admission Count Last Ordered Date First Ordered Date NOTIFY PPS OF DISCHARGE COMPLETE 1 06/15/2011 ADMIT TO INPATIENT 1 06/14/2011 NOTIFY PPS PATIENT ARRIVAL IN PACU 1 06/14/2011 NOTIFY PPS PATIENT TRANSFERRED OUT OF PACU 1 06/14 PPS NOTIFICATION OF PATIENT ARRIVAL ON 1 1 UNIT Discharge Count Last Ordered Date First Ordered Date DISCHARGE PATIENT 2 06/15/2011 documented in this encounter Care Teams Retail Team Member Relationship Specialty Start Date End Date Danish Cao, PCP - General 11/26/08 06/26/16 [address] [place] [id number] documented as of this encounter
--- OUTSIDE RECORDS SUMMARY | 2022-02-07 01:34 | XMS_ITS | Encounter Summary ---
:1955 Author Organization [facility] Address [address] [place] [address] Care Team Providers Name Role Phone Danish Cao Russell DO Primary Care Provider Encounter Details Date Type Department Care Team Description 08/22/2011 Anti-coag visit [facility] Yehuda Manriquez MD Cardiology - [place] [address] [place] [address] (Wo rk) Social History Tobacco [...] encounter Progress Notes Omari Mckeon MD - 08/23/2011 1446 EST Omari Mckeon MD Omari Stone MD - 08/23/2011 0928 EST Omari Mckeon MD Valerie Swenson, ROBBY - 08/22/2011 1555 EST Dose change. Message left for pt w/ instructions and requested to call back to report message received. documented in this encounter Plan of Treatment Upcoming Encounters Date Type Specialty Care Team Description 09/13/2022 Office Visit Cardiology Shelton Smith MD [address] [place] [address] [address] [place] [phone] (Wo rk) documented as of this encounter Procedures Procedure Name Priority Date/Time Associated Diagnosis Comme nts PROTIME Routine 08/22/2011 11:37 EST Results for this procedure are i n the results section . documented in this encounter Results PROTIME (08/22/2011 11:37 EST) Pathologist Sig nature Protime, External [facility] INR, External 1.7 [facility] Specimen Blood specimen (specimen) Performing Organization Address City/State/ZIP Code Phon e Number [facility] documented in this encounter Visit Diagnoses Not on filedocumented in this encounter Care Teams Lead Athlete Relationship Specialty Start Date End Date Danish Cao, PCP - General 11/26/08 06/26/[address] [place] [address] documented as of this encounter
--- OUTSIDE RECORDS SUMMARY | 2022-02-07 01:34 | XMS_ITS | Encounter Summary ---
:1955 Author Organization [facility] Address [address] [place] [address] Care Team Providers Name Role Phone Danish Cao DO Primary Care Provider Reason for Visit Reason Onset Date Comments Anticoagulation 08/31/2011 pt having possible b leeding issues--needs call from Coumadin nurse Encounter Details Date Type Department Care Team Description 08/31/[address] [facility] Kimberly Russell Antico agulation (pt having Cardiology - [place] BUST[place]TE possible bleeding [address] issues--needs call from [place], [place] Coumadin n jean paul) [id number] Social History Tobacco Use Types Packs/Day Years [...] Telephone Encounter - Valerie Pitt RN - 09/01/2011 0974 EST Pt replied by email with report that he was seen in ER and is now being treated for cellulitis w/ Keflex 500 mg QID. Responded to pt w/ outgoing email that there should not be a problem w/ taking this medication and his INR. INR pending on Monday, 09/05. elephone Encounter - Kimberly Russell - 08/31/2011 1623 EST I left a message for the patient to return my call. elephone Encounter - Gerald Da Silva - 08/31/2011 1437 EST Got a call from Atiya in the call center that Mr. Garcia on phone with possible Coumadin issues--some bruising/possible bleeding. Needs Coumadin nurse to call him on cell at [phone] signed by Gerald Da Silva at 08/31/2011 14:39 ESTdocumented in this encounter Plan of Treatment Upcoming Encounters Date Type Specialty Care Team Description 09/13/2022 Office Visit Cardiology Shelton Smith MD [address] [place] [address] [address] [place], [place] [phone] (Wo rk) documented as of this encounter Visit Diagnoses Not on filedocumented in this encounter Care Teams Corporation Secretary Relationship Specialty Start Date End Date Danish Cao DO PCP - General 11/26/08 06/26/16 [address] [place] [id number] documented as of this encounter
--- OUTSIDE RECORDS SUMMARY | 2022-02-07 01:34 | XMS_ITS | Encounter Summary ---
:1955 Author Organization [facility] Address [address] [place] [address] Care Team Providers Name Role Phone NashDanish bland Primary Care Provider Reason for Visit Reason Onset Date Comments Irregular Heart Beat 07/09/2012 Encounter Details Date Type Department Care Team Description 07/09/2012 Telephone [facility] Valerie Pitt RN [facility] Heart Beat Cardiology - [address] [place] [phone] Social History Tobacco Use Types Packs/Day [...] Telephone Encounter - Valerie Pitt RN - 07/10/2012 1025 EST Pt sent email update yesterday letting me know that he did go to local ER and when he arrived he wasback in normal sinus rhythm. I updated Dr. Hendricks who recommends no change in therapy @ this time but to have pt contact office if he has another episode. I let pt know this update via email. elephone Encounter - Valerie Pitt RN - 07/09/2012 1513 EST Pt sent email on 07/05/12 letting me know of increased frequency of episodes of palpitations and asking if Dr. Hendricks would like him to wear an event monitor. I was planning to discuss this w/ Dr. Hendricks today in clinic and pt called this morning to report that his heart rate is elevated @ 110. Rhythm is regular but he is unable to get it to slow down. Pt advised to go to PCP's office for EKG. States he will go to ER. I sent an email to pt this afternoon requesting update. documented in this encounter Plan of Treatment Upcoming Encounters Date Type Specialty Care Team Description 09/13/2022 Office Visit Cardiology Shelton Smith MD [address] [place] [address] [address] [place] [address] (Wo rk) documented as of this encounter Visit Diagnoses Not on filedocumented in this encounter Care Teams Chemic Mangler Relationship Specialty Start Date End Date Danish Cao DO PCP - General 11/26/08 06/26/16 [address] [place] [address] documented as of this encounter
--- OUTSIDE RECORDS SUMMARY | 2022-02-07 01:34 | XMS_ITS | Encounter Summary ---
:1955 Author Organization [facility] Address [address] [place] [address] Care Team Providers Name Role Phone NashDanish blnad Primary Care Provider Encounter Details Date Type Department Care Team Description 08/05/2011 Anti-coag visit [facility] Yehuda Manriquez MD Cardiology - [place] [address] [place] [address] (Wo rk) Social History Tobacco [...] Care Team Description 09/13/2022 Office Visit Cardiology Shetlon Smith MD [address] [place] [address]- [address] [place] [address] (Wo rk) documented as of this encounter Procedures Procedure Name Priority Date/Time Associated Diagnosis Comme nts PROTIME Routine 08/05/2011 9:02 EST Results for this procedure are i n the results section . documented in this encounter Results PROTIME (08/05/2011 9:02 EST) Pathologist Sig nature Protime, External [facility] INR, External 1.8 [facility] Specimen Blood specimen (specimen) Performing Organization Address City/State/ZIP Code Phon e Number [facility] documented in this encounter Visit Diagnoses Not on filedocumented in this encounter Care Teams Music Executive Relationship Specialty Start Date End Date Danish Cao DO PCP - General 11/26/08 06/26/[address] [place] [address] documented as of this encounter
--- OUTSIDE RECORDS SUMMARY | 2022-02-07 01:34 | XMS_ITS | Encounter Summary ---
:[address] [facility] Address [address] [place] [address] Care Team Providers Name Role Phone Danish Cao DO Primary Care Provider Encounter Details Date Type Department Care Team Description 02/09/2011 Anti-coag visit [facility] Yehuda Manriquez MD Cardiology - [place] [address] [place] [address] (Wo rk) Social History Tobacco [...] encounter Progress Notes Keaton Manriquez MD - 02/10/2011 1155 EDT Keaton Manriquez MD erald Hidalgo - 02/09/[address] Hendricks's plan of care, pt can D/C his Coumadin effective today. Email sent to pt by Valerie Pitt to remind him of this. Protime standing order at [facility] canceled. Pt discharged from CoumadinClinic. Dr. Jaffe's and Dr. Cao's offices notified of change to pt's medication regimen. documented in this encounter Plan of Treatment Upcoming Encounters Date Type Specialty Care Team Description 09/13/2022 Office Visit Cardiology Shelton Smith MD [address] [place] [address] [phone] (Wo rk) documented as of this encounter Visit Diagnoses Not on filedocumented in this encounter Care Teams Senior Private Client Advisor Relationship Specialty Start Date End Date Danish Cao DO PCP - General 11/26/08 06/26/[address] [place] [address] documented as of this encounter
--- OUTSIDE RECORDS SUMMARY | 2022-02-07 01:34 | XMS_ITS | Encounter Summary ---
:1955 Author Organization [facility] Address [address] [place] [address] Care Team Providers Name Role Phone Danish Cao DO Primary Care Provider Reason for Visit Reason Onset Date Comments Other 11/23/2010 Encounter Details Date Type Department Care Team Description 11/23/2010 Telephone [facility] Joshua Hendricks MD Other Cardiology - [address], [place], [place] [address] [place] [address] (Wo rk) Social History [...] End Date warfarin (COUMADIN) 2 mg Take 1-2 Tabs by 60 Tab 1 11/2301/20/2011 tablet mouth daily. documented in this encounter Miscellaneous Notes Telephone Encounter - Deanna Little - 11/23/2010 1506 EDT PT RETURNING DARON'S CALL TO SAY HE GOT HER MESSAGE. PT SAID THAT HE UNDERSTANDS IT AND THAT IT WAS VERY CLEAR. PT WANTS DARON TO KNOW THAT SHE CAN CALL PRESCRIPTION IN TODAY IF SHE WOULD LIKE TO [facility] [place]. PT'S CAN PICK IT UP TONIGHT. documented in this encounter Plan of Treatment Upcoming Encounters Date Type Specialty Care Team Description 09/13/2022 Office Visit Cardiology Shelton Smith MD [address] [place] [address] [address] [place] [address] (Wo rk) documented as of this encounter Visit Diagnoses Not on filedocumented in this encounter Discontinued Medications Medication Sig Discontinue Reason Start Date End Date warfarin (COUMADIN) 5 mg Take 1 Tab by Dose adjustment 10/25/2010 11/23/2010 tabletIndications: Primary mouth daily. hypercoagulable state (HCC-CMS) (HCC) documented as of this encounter Care Teams Chief Program Officer Relationship Specialty Start Date End Date Danish Cao DO PCP - General 11/26/08 06/26/[address] [place] [address] documented as of this encounter
--- OUTSIDE RECORDS SUMMARY | 2022-02-07 01:34 | XMS_ITS | Encounter Summary ---
:1955 Author Organization [facility] Address [address] [place] [address] Care Team Providers Name Role Phone Danish Cao Russell DO Primary Care Provider Encounter Details Date Type Department Care Team Description 05/30/2011 Anti-coag visit [facility] Yehuda Manriquez MD Cardiology - [place] [address] [place] [address] (Wo rk) Social History Tobacco [...] encounter Progress Notes Omari Mckeon MD - 05/30/2011 1700 EST Omari Mckeon MD Valerie Swenson, RN - 05/30/2011 1353 EST No warfarin dose change. Left message for pt and advised pt to call back w/ questions and to confirmmessage received. documented in this encounter Plan of Treatment Upcoming Encounters Date Type Specialty Care Team Description 09/13/2022 Office Visit Cardiology Shelton Smith MD [address] [place] [address] [address] [place] [address] (Wo rk) documented as of this encounter Procedures Procedure Name Priority Date/Time Associated Diagnosis Comme nts PROTIME Routine 05/30/2011 11:23 EST Results for this procedure are i n the results section . documented in this encounter Results PROTIME (05/30/2011 11:23 EST) Pathologist Sig nature Protime, External [facility] INR, External 1.7 [facility] Specimen Blood specimen (specimen) Performing Organization Address City/State/ZIP Code Phon e Number [facility] documented in this encounter Visit Diagnoses Not on filedocumented in this encounter Care Teams Brushing Machine Operator Relationship Specialty Start Date End Date Danish Cao DO PCP - General 11/26/08 06/26/[address] [place] [address] documented as of this encounter
--- OUTSIDE RECORDS SUMMARY | 2022-02-07 01:34 | XMS_ITS | Encounter Summary ---
:1955 Author Organization [facility] Address [address] [place] [address] Care Team Providers Name Role Phone NashDanish bland Primary Care Provider Reason for Visit Reason Onset Date Comments Medications Refill 01/20/2011 Encounter Details Date Type Department Care Team Description 01/20/2011 Refill [facility] Cardiology Yehuda Pitt RN Medications Refill - [address] [place], [place] [address] Social History Tobacco Use Types Packs/Day [...] mg Take 1-2 Tabs by 60 Tab 5 01/2004/28/2011 tablet mouth daily. documented in this encounter Plan of Treatment Upcoming Encounters Date Type Specialty Care Team Description 09/13/2022 Office Visit Cardiology Shelton Smith MD [address] [place] [address] [place] [address] (Wo rk) documented as of this encounter Visit Diagnoses Not on filedocumented in this encounter Discontinued Medications Medication Sig Discontinue Reason Start Date End Date warfarin (COUMADIN) 2 mg Take 1-2 Tabs by Reorder 11/23/2010 01/20/2011 tablet mouth daily. documented as of this encounter Care Teams Manager Of Creative Services Relationship Specialty Start Date End Date Danish Cao DO PCP - General 11/26/08 06/26/[address] [place] [address] documented as of this encounter
--- OUTSIDE RECORDS SUMMARY | 2022-02-07 01:34 | XMS_ITS | Encounter Summary ---
:1955 Author Organization [facility] Address [address] [place] [address] Care Team Providers Name Role Phone Danish Cao Russell DO Primary Care Provider Encounter Details Date Type Department Care Team Description 06/13/2011 Anti-coag visit [facility] Yehuda Manriquez MD Cardiology - [place] [address] [place] [address] (Wo rk) Social History Tobacco [...] encounter Progress Notes Omari Mckeon MD - 06/13/2011 1600 EST Omari Mckeon MD Valerie Swenson, RN - 06/13/2011 1518 EST No warfarin dose change. Left message for pt and advised pt to call back w/ questions and to confirmmessage received. documented in this encounter Plan of Treatment Upcoming Encounters Date Type Specialty Care Team Description 09/13/2022 Office Visit Cardiology Shelton Smith MD [address] [place] [address] [address] [place] [phone] (Wo rk) documented as of this encounter Visit Diagnoses Not on filedocumented in this encounter Care Teams Highway Engineering Teacher Relationship Specialty Start Date End Date Danish Cao DO PCP - General 11/26/08 06/26/[address] [place] [address] documented as of this encounter
--- OUTSIDE RECORDS SUMMARY | 2022-02-07 01:34 | XMS_ITS | Encounter Summary ---
:1955 Author Organization [facility] Address [address] [place] [address] Care Team Providers Name Role Phone Danish Cao DO Primary Care Provider Encounter Details Date Type Department Care Team Description 01/05/2011 Anti-coag visit [facility] Yehuda Manriquez MD Cardiology - [place] [address] [place] [address] (Wo rk) Social History Tobacco [...] encounter Progress Notes Keaton Manriquez MD - 01/07/2011 0928 EDT Keaton Manriquez MD, MD Valerie matos, RN - 01/05/2011 1343 EDT No warfarin dose change. Left message for pt and advised pt to call back w/ questions and to confirmmessage received. documented in this encounter Plan of Treatment Upcoming Encounters Date Type Specialty Care Team Description 09/13/2022 Office Visit Cardiology Shelton Smith MD [address] [place] [address] [address] [place] [phone] (Wo rk) documented as of this encounter Procedures Procedure Name Priority Date/Time Associated Diagnosis Comme nts PROTIME Routine 01/05/2011 10:45 EDT Results for this procedure are i n the results section . documented in this encounter Results PROTIME (01/05/2011 10:45 EDT) Pathologist Sig nature Protime, External [facility] INR, External 2.1 [facility] Specimen Blood specimen (specimen) Performing Organization Address City/State/ZIP Code Phon e Number [facility] documented in this encounter Visit Diagnoses Not on filedocumented in this encounter Care Teams Control Chemist Relationship Specialty Start Date End Date Danish Cao DO PCP - General 11/26/08 06/26/[address] [place] [address] documented as of this encounter
--- OUTSIDE RECORDS SUMMARY | 2022-02-07 01:34 | XMS_ITS | Encounter Summary ---
:1955 Author Organization [facility] Address [address] [place] [address] Care Team Providers Name Role Phone Danish Cao DO Primary Care Provider Reason for Visit Reason Comments Irregular Heart Beat 2-3 weeks post ablation says he's constantly tired and it doesn't take much to raise h is heart rate. Says he hasn't been going into afib but feels li ke he's approaching it. Although 2 or 3 times he thinks he did have a short episode unlike previous to the ablation. Recent ekg in scans 06/29. Encounter Details Date Type Department Care Team Description 07/07/2011 Office Visit [facility] Rex Hendricks ( [facility]) Cardiology - Sayra Akers MD (Primary Dx) [address] [place], [place] [id number] [place] [address], [facility] Level [address] [place] [address] (Wo rk) Social History Tobacco [...] Sign Reading Time Taken Comments Blood Pressure 144/114 07/07/2011 1507 EST Pulse 77 07/07/2011 1507 EST Temperature - - Respiratory Rate - - Oxygen Saturation 98% 07/07/2011 1507 EST Inhaled Oxygen Concentration - - Weight 70.3 kg (155 lb) 07/07/2011 1507 EST Height - - Body Mass Index 22.24 06/08/2011 1021 EST documented in this encounter [...] encounter Progress Notes RuthieRex nolasco MD - 07/07/2011 1610 EST Subjective: Patient ID: Braulio Garcia is an 55 y.o. male. Chief Complaint Patient presents with ??? Irregular Heart Beat 2-3 weeks post ablation says he's constantly tired and it doesn't take much to raise his heart rate. Says he hasn't been going into afib but feels like he's approaching it. Although 2 or 3 times he thinks he did have a short episode unlike previous to the ablation. Recent ekg in scans 06/29. HPI Bill returns for followup following his ablation approximately 3 weeks ago. This was his 3rd ablation for atrial fibrillation. In the interim, he has been feeling well. He has had no further episodes of atrial fibrillation as far as he can tell. He has had no significant shortness of breath, chest pain. He had no bleeding at his catheter access site and no difficulty swallowing and no fevers. He doesnotice that his resting heart rate is a little bit higher than he is used to and that his heart rateincreases more rapidly during exercise than is normal for him and he is fatigued but otherwise asymptomatic. Patient Active Problem List Diagnoses ??? A-fib [...] Only ROS - See HPI Objective: BP 144/114 Pulse 77 Wt 70.308 kg (155 lb) SpO2 98% Physical Exam Yonis is alert and oriented x3. Cranial nerves are grossly intact. His jugular veins are flat. At 45 degrees, carotid upstrokes are brisk without bruit. His lungs are clear. He has normal S1 and S2 withno murmurs, rubs or gallops. He has no bruit over his catheter access sites. He has got 2+ pulses inhis extremities with no clubbing, cyanosis or edema. Assessment: So far, Yonis is doing well post operation. 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 This can last for as long as a year following ablation and I think in and of itself is not cause for concern. He will be on the lookout for paroxysmal palpitations and irregularly, irregular rhythm. Plan: Yonis will continue on his current medical regimen and follow up at 6 months. His Coumadin will be continued until the 3 month michael at which point he can change to an aspirin a day. Rex Hendricks MD documented in this encounter Plan of Treatment Upcoming Encounters Date Type Specialty Care Team Description 09/13/2022 Office Visit Cardiology Shelton Smith MD [address] [place] [address] [phone] (Wo ) documented as of this encounter Visit Diagnoses Diagnosis A-fib (HCC-CMS) (HCC) - Primary Atrial fibrillation documented in this encounter Discontinued Medications Medication Sig Discontinue Reason Start Date End Date warfarin (COUMADIN) 2 Take 2 Tabs by mouth 06/15/2011 07/07/2011 mg tablet daily. As directed warfarin (COUMADIN) 2 warfarin dose is 5 mg 06/15/2011 07/07/2011 mg tabletIndications: Monday and Monday; 4 atrial fibrillation mg daily the other days of the week. Indications: ATRIAL FIBRILLATION pantoprazole Take 1 Tab by mouth 06/15/2011 07/07/20 11 (PROTONIX) 40 mg daily. tablet warfarin (COUMADIN) 5 Take 2 mg by mouth 07/07/2011 mg tablet daily. Taking 2mg as directed. documented as of this encounter Historical Medications This list may reflect changes made after this encounter. Medication Sig Dispensed Refills Start Date End Date warfarin (COUMADIN) 2 mg Take 2 mg by mouth 0 12/15/2011 tablet daily. Taking as directed. added in this encounter Care Teams Maintenance Representative Relationship Specialty Start Date End Date Danish Cao DO PCP - General 11/26/08 06/26/16 [address] [address] documented as of this encounter
--- OUTSIDE RECORDS SUMMARY | 2022-02-07 01:34 | XMS_ITS | Encounter Summary ---
:1955 Author Organization [facility] Address [address] [place] [address] Care Team Providers Name Role Phone Danish Cao Russell DO Primary Care Provider Encounter Details Date Type Department Care Team Description 07/26/2011 Anti-coag visit [facility] Yehuda Manriquez MD Cardiology - [place] [address] [place] [address] (Wo rk) Social History Tobacco [...] encounter Progress Notes Omari Mckeon MD - 07/26/2011 1614 EST Omari Mckeon MD Valerie Swenson, RN - 07/26/2011 1345 EST Dose change. Message left for pt w/ instructions and requested to call back to report message received. documented in this encounter Plan of Treatment Upcoming Encounters Date Type Specialty Care Team Description 09/13/2022 Office Visit Cardiology Shelton Smith MD [address] [place] [address] [address] [place] [address] (Wo rk) documented as of this encounter Procedures Procedure Name Priority Date/Time Associated Diagnosis Comme nts PROTIME Routine 07/26/2011 9:25 EST Results for this procedure are i n the results section . documented in this encounter Results PROTIME (07/26/2011 9:25 EST) Pathologist Sig nature Protime, External [facility] INR, External 2.1 [facility] Specimen Blood specimen (specimen) Performing Organization Address City/State/ZIP Code Phon e Number [facility] documented in this encounter Visit Diagnoses Not on filedocumented in this encounter Care Teams Web Marketing Specialist Relationship Specialty Start Date End Date Danish Cao DO PCP - General 11/26/08 06/26/[address] [place] [address] documented as of this encounter
--- OUTSIDE RECORDS SUMMARY | 2022-02-07 01:34 | XMS_ITS | Encounter Summary ---
:1955 [address] [facility] Address [address] [place] [address] Care Team Providers Name Role Phone NashDanish DO Primary Care Provider Encounter Details Date Type Department Care Team Description 11/22/2010 Anti-coag visit [facility] Yehuda Manriquez MD Cardiology - [place] [address] [place] [address] (Wo rk) Social History Tobacco [...] encounter Progress Notes Omari Mckeon MD - 11/22/2010 1517 EDT Omari Mckeon MD Valerie Leyva RN - 11/22/2010 1126 EDT Clinical Staff notified with Critical Results Ordering Provider: Dario Date and Time Test was Performed: 11/22/10 Results: INR 4.9 Result Read Back and Verified: yes Provider Notified: Provider Name: Valerie Pitt RN Date: 11/22/10 Time: 1105 AM Treatment Plan: Hold tonight, test tomorrow Patient Notified: yes Date: 11/22/10 Time: 1120 AM Gerald Sanchez - 11/22/2010 1108 EDT Non Clinical Staff notified with Critical Results Ordering Provider: Keaton Manriquez MD Date and Time Test was Performed: 11/22/10, drawn at 0947, resulted at 1104 Results: 48.0/4.9 Results called to Gerald Da Silva in the [facility] by Latasha at [facility] at 1105 AM Result Read Back and Verified: yes Nursing/Provider Notified: Nursing/Provider Name: Valerie Pitt RN Date: 11/22/10 Time: 1108 AM documented in this encounter Plan of Treatment Upcoming Encounters Date Type Specialty Care Team Description 09/13/2022 Office Visit Cardiology Shelton Smith MD [address] [place] [address] [address] [place] [address] (Wo rk) documented as of this encounter Procedures Procedure Name Priority Date/Time Associated Diagnosis Comme nts PROTIME Routine 11/22/2010 9:47 EDT Results for this procedure are i n the results section . documented in this encounter Results (ABNORMAL) PROTIME (11/22/2010 9:47 EDT) Pathologist Sig nature Protime, External [facility] INR, External 4.9 (A) [facility] Specimen Blood specimen (specimen) Performing Organization Address City/State/ZIP Code Phon e Number [facility] documented in this encounter Visit Diagnoses Not on filedocumented in this encounter Care Teams City Manager Relationship Specialty Start Date End Date Danish Cao DO PCP - General 11/26/08 06/26/16 [address] [facility] [place] [address] documented as of this encounter
--- OUTSIDE RECORDS SUMMARY | 2022-02-07 01:34 | XMS_ITS | Encounter Summary ---
:1955 Author Organization [facility] Address [address] [place] [address] Care Team Providers Name Role Phone Danish Cao DO Primary Care Provider Encounter Details Date Type Department Care Team Description 01/26/2011 Anti-coag visit [facility] Yehuda Manriquez MD Cardiology - [place] [address] [place] [address] (Wo rk) Social History Tobacco [...] encounter Progress Notes Keaton Manriquez MD - 01/27/2011 1114 EDT Keaton Manriquez MD Valerie matos, RN - 01/26/2011 1639 EDT Dose change. Message left for pt w/ instructions and requested to call back to report message received. documented in this encounter Plan of Treatment Upcoming Encounters Date Type Specialty Care Team Description 09/13/2022 Office Visit Cardiology Shelton Smith MD [address] [place], [place] [address] [address] [place] [address] (Wo rk) documented as of this encounter Procedures Procedure Name Priority Date/Time Associated Diagnosis Comme nts PROTIME Routine 01/26/2011 11:04 EDT Results for this procedure are i n the results section . documented in this encounter Results (ABNORMAL) PROTIME (01/26/2011 11:04 EDT) Pathologist Sig nature Protime, External [facility] INR, External 1.8 (A) [facility] Specimen Blood specimen (specimen) Performing Organization Address City/State/ZIP Code Phon e Number [facility] documented in this encounter Visit Diagnoses Not on filedocumented in this encounter Care Teams Manager Labor Relations Relationship Specialty Start Date End Date Danish Cao DO PCP - General 11/26/08 06/26/[address] [place] [address] documented as of this encounter
--- OUTSIDE RECORDS SUMMARY | 2022-02-07 01:34 | XMS_ITS | Encounter Summary ---
:1955 Author Organization [facility] Address [address] [place] [id number] Care Team Providers Name Role Phone Danish Cao DO Primary Care Provider Reason for Visit Reason Onset Date Comments Anticoagulation 05/24/2011 ? re: anticoagulatio n Encounter Details Date Type Department Care Team Description 05/24/[address] [facility] Rex Hendricks (? re: Cardiology - Sayra Akers MD anticoagulation) [address], [facility] [address] [place] [address] (Wo rk) Social History Tobacco [...] Telephone Encounter - Valerie Pitt RN - 05/24/2011 1120 EDT Pt contacted via email w/ reassurance that he does not need injections to bridge his initiation of warfarin. elephone Encounter - Gerald Da Silva - 05/24/2011 1054 EDT Pt's called re: pt's pending ablation for 06/14 and his restarting Coumadin. She states that the last time he restarted Coumadin he was on injections for about a week to help get his blood thinner. She swears it was not Lovenox. She is just checking to make sure patient does not need these injec tions again this time. Pt was adamant he did not, but she is requesting confirmation. Her work number is , ext [phone]. documented in this encounter Plan of Treatment Upcoming Encounters Date Type Specialty Care Team Description 09/13/2022 Office Visit Cardiology Shelton Smith MD [address] [place] [address] [address] [place] [phone] (Wo rk) documented as of this encounter Visit Diagnoses Not on filedocumented in this encounter Care Teams Can Dryer Relationship Specialty Start Date End Date Danish Cao DO PCP - General 11/26/08 06/26/[address] [place], [place] [address] documented as of this encounter
--- OUTSIDE RECORDS SUMMARY | 2022-02-07 01:34 | XMS_ITS | Encounter Summary ---
:1955 Author Organization [facility] Address [address] [place] [address] Care Team Providers Name Role Phone NashDanish stevens DO Primary Care Provider Reason for Visit Reason Onset Date Comments Irregular Heart Beat 05/24/2011 Encounter Details Date Type Department Care Team Description 05/24/2011 Telephone [facility] Valerie Pitt RN Irre gular Heart Beat Cardiology - Sayra [address] [place] [address] Social History Tobacco Use Types Packs/Day [...] Encounter - Valerie Pitt RN - 05/24/2011 1038 EDT Pt called to report that his episodes of afib are coming more frequently and lasting longer. Pt states that he and Dr. Hendricks discussed treatment options @ recent office visit and pt has decided that it is time to schedule an ablation. Scheduled for 06/14/11. Pt will restart warfarin today. documented in this encounter Plan of Treatment Upcoming Encounters Date Type Specialty Care Team Description 09/13/2022 Office Visit Cardiology Shelton Smith MD [address] [place] [address] [address] (Wo rk) documented as of this encounter Visit Diagnoses Not on filedocumented in this encounter Care Teams Music Industry Intern Relationship Specialty Start Date End Date Danish Cao DO PCP - General 11/26/08 06/26/16 [address] [place] [place] [address] documented as of this encounter
--- OUTSIDE RECORDS SUMMARY | 2022-02-07 01:34 | XMS_ITS | Encounter Summary ---
:1955 Author Organization [facility] Address [address] [place] [address] Care Team Providers Name Role Phone Danish Cao Russell DO Primary Care Provider Encounter Details Date Type Department Care Team Description 06/06/2011 Anti-coag visit [facility] Yehuda Manriquez MD Cardiology - [place] [address] [place] [address] (Wo rk) Social History Tobacco [...] encounter Progress Notes Omari Mckeon MD - 06/06/2011 1340 EST Omari Mckeon MD Valerie Swenson, RN - 06/06/2011 1339 EST No warfarin dose change. Left message for pt and advised pt to call back w/ questions and to confirmmessage received. documented in this encounter Plan of Treatment Upcoming Encounters Date Type Specialty Care Team Description 09/13/2022 Office Visit Cardiology Shelton Smith MD [address] [place] [address] [address] [place] [address] (Wo rk) documented as of this encounter Procedures Procedure Name Priority Date/Time Associated Diagnosis Comme nts PROTIME Routine 06/06/2011 9:00 EST Results for this procedure are i n the results section . documented in this encounter Results PROTIME (06/06/2011 9:00 EST) Pathologist Sig nature Protime, External [facility] INR, External 2.2 [facility] Specimen Blood specimen (specimen) Performing Organization Address City/State/ZIP Code Phon e Number [facility] documented in this encounter Visit Diagnoses Not on filedocumented in this encounter Care Teams Factory Supervisor Relationship Specialty Start Date End Date Danish Cao DO PCP - General 11/26/08 06/26/[address] [place] [address] documented as of this encounter
--- OUTSIDE RECORDS SUMMARY | 2022-02-07 01:34 | XMS_ITS | Encounter Summary ---
:1955 Author Organization [facility] Address [address] [facility] [place] [address] Care Team Providers Name Role Phone Danish Cao DO Primary Care Provider Reason for Visit Reason Comments Irregular Heart Beat Ablation follow up Encounter Details Date Type Department Care Team Description 12/15/2011 Office Visit [facility] Rex Hendricks Atrial fibrillation Cardiology - Sayra Akers MD ([facility]) (Primary [address] [place] Dx) [place], [place] [address] [place] [address], [facility] 1 [place] [address] (Wo rk) Social History Tobacco [...] Sign Reading Time Taken Comments Blood Pressure 120/82 12/15/2011 1350 EDT Pulse 82 12/15/2011 1350 EDT Temperature - - Respiratory Rate - - Oxygen Saturation 96% 12/15/2011 1350 EDT Inhaled Oxygen Concentration - - Weight 68.5 kg (151 lb) 12/15/2011 1350 EDT Height 177.8 cm (5' 10) 12/15/2011 1350 EDT Body Mass Index 21.67 12/15/2011 1350 EDT documented in this encounter Functional Status Cognitive Status Response Date of Assessment Because of a physical, mental, or emotional condition, do Ye s 06/14/2011 you have serious difficulty concentrating, remembering, or making decisions? (5 years old or older) documented as of this encounter Ordered Prescriptions Prescription Sig Dispensed Refills Start Date End Date DILTiazem (CARDIZEM CD) Take 1 Cap by mouth 30 Cap 5 10/02/2012 240 mg ER capsule daily. documented in this encounter Progress Notes Rex Hendricks MD - 12/15/2011 1409 EDT Subjective: Patient ID: Braulio Garica is an 56 y.o. male. Chief Complaint Patient presents with ??? Irregular Heart Beat Ablation follow up HPI Yonis is a patient who has had symptomatic atrial fibrillation in the past, for which he has had several ablations at this point, most recently 6 months ago. He is a very physically active mily, running and biking. Has been feeling well. Has had one sustained episode of atrial fibrillation that was self-terminating after about 12 hours in September but nothing since. His major complaint, however, is that his resting heart rate is elevated compared to prior to his ablation and with exercise his heart rate rises inappropriately quickly and he has he believes more fatigue and less exercise tolerance in the setting of this inappropriate sinus tachycardia. He is otherwise feeling well. He does continue to run and bike beyond what most people are able to do, but with less vigor than he used to be able to perform. Patient Active Problem List Diagnoses (none) - all problems resolved or deleted Past Medical History Diagnosis Date ??? AF [...] Only ROS - See HPI Objective: BP 120/82 Pulse 82 Ht 177.8 cm (70) Wt 68.493 kg (151 lb) BMI 21.67 kg/m2 SpO2 96% Physical Exam He is alert and oriented x3, cranial nerves are grossly intact. Lungs are clear. He has a normal S1 and S2 without murmurs, rubs or gallops. His heart rate is in the mid 70s. He has no clubbing, cyanosis or edema and 2+ pulses in his extremities. Appears to be extremely fit. Assessment: Yonis appears to be doing well. He does, however, seem to have some vagal withdrawal following his ablations today. His resting heart rate is higher than normal and his response exercise is undampened with a rapid heart rate increased. This can occur following ablation, it is felt to be due to damage to the autonomic ganglia that are on the surface of the heart around the pulmonary veins, actually some feel that this is a therapeutic part of the procedure. Either way, my experience is that these inappropriate sinus tachycardia symptoms tend to disappear within about 12 months. In the meantime, I seeno harm in trying him on some medication to supress his response to catecholamines. He has had hallucinations with beta-blockers in the past and so I am trying him on 240 a day of Cardizem-CD and will see whether we continue that medication or not depending upon his presence or absence of side effectsand the control of his symptoms. We met for 25 minutes, more than 15 minutes of which was spent on counseling. Plan: There are no diagnoses linked to this encounter. Rex Hendricks MD documented in this encounter Procedure Notes PICKLE PUMPER, SCAN 2 - 12/26/2011 1121 EDTAssociated Order(s): ECG REPORT - SCANNED documented in this encounter Plan of Treatment Upcoming Encounters Date Type Specialty Care Team Description 09/13/2022 Office Visit Cardiology Shelton Smith MD [address] [place], [place] [address] [address] [place], [place] [phone] (Wo rk) Scheduled Orders Name Type Priority Associated Diagnoses Order S chedule EKG 12-LEAD ECG Routine Atrial fibrillation (CMS-HCC ) Ordered: 12/15/2011 documented as of this encounter Procedures Procedure Name Priority Date/Time Associated Diagnosis Comme nts ECG REPORT - 12/26/2011 11:21 Results for this SCANNED EDT procedure are i n the results section. documented in this encounter Results ECG REPORT - SCANNED (12/26/2011 11:21 EDT) Specimen Narrative This result has an attachment that is no t available. Transcriptions PICKLE PUMPER, SCAN 2 - 12/26/2011 11:21 EDT documented in this encounter Visit Diagnoses Diagnosis Atrial fibrillation (HCC-[facility]) (HCC) - Pr imary Atrial fibrillation documented in this encounter Discontinued Medications Medication Sig Discontinue Reason Start Date End Date warfarin (COUMADIN) 2 mg Take 2 mg by mouth 12/15/2011 tablet daily. Taking as directed. documented as of this encounter Historical Medications This list may reflect changes made after this encounter. Medication Sig Dispensed Refills Start Date End Date ASPIRIN (ASPIR-81 ORAL) Take 81 mg by mouth. 0 10/08/2012 added in this encounter Care Teams Digital Advisor Relationship Specialty Start Date End Date Danish Cao DO PCP - General 11/26/08 06/26/16 [address] [place] [address] documented as of this encounter
--- OUTSIDE RECORDS SUMMARY | 2022-02-07 01:34 | XMS_ITS | Encounter Summary ---
:[address] [facility] Address [address] [place] [address] Care Team Providers Name Role Phone Danish Cao DO Primary Care Provider Encounter Details Date Type Department Care Team Description 11/15/2010 Anti-coag visit [facility] Valerie Pitt RN A -fib ([facility] Cardiology - [place] [address] [place] [phone] Social History Tobacco Use Types Packs/Day [...] encounter Progress Notes Omari Mckeon MD - 11/15/2010 1649 EDT Omari Mckeon MD Valerie Leyva RN - 11/15/2010 1125 EDT Clinical Staff notified with Critical Results Ordering Provider: MD Dario Date and Time Test was Performed: 11/15/10 @ 10:20 am Results: PT 35.2/ INR 3.6 Result Read Back and Verified: yes Provider Notified: Provider Name: Valerie Pitt RN Date: 11/15/10 Time: 1115 AM Treatment Plan: Reduce dose by 14% Patient Notified: yes, via email Date: 11/15/10 Time: 1125 AM documented in this encounter Plan of Treatment Upcoming Encounters Date Type Specialty Care Team Description 09/13/2022 Office Visit Cardiology Shelton Smith MD [address] [place] [address] [address] [place] [address] (Wo rk) documented as of this encounter Procedures Procedure Name Priority Date/Time Associated Diagnosis Comme nts PROTIME Routine 11/15/2010 10:20 EDT Results for this procedure are i n the results section . documented in this encounter Results (ABNORMAL) PROTIME (11/15/2010 10:20 EDT) Pathologist Sig nature Protime, External [facility] INR, External 3.6 (A) [facility] Specimen Blood specimen (specimen) Performing Organization Address City/State/ZIP Code Phon e Number [facility] documented in this encounter Visit Diagnoses Diagnosis A-fib (HCC-CMS) (HCC) Atrial fibrillation documented in this encounter Care Teams Etiquette Coach Relationship Specialty Start Date End Date Danish Cao DO PCP - General 11/26/08 06/26/16 [address] [place] [address] documented as of this encounter
--- OUTSIDE RECORDS SUMMARY | 2022-02-07 01:34 | XMS_ITS | Encounter Summary ---
:1955 Author Organization [facility] Address [address] [place] [address] Care Team Providers Name Role Phone Danish Cao Russell DO Primary Care Provider Encounter Details Date Type Department Care Team Description 12/16/2010 Anti-coag visit [facility] Yehuda Manriquez MD Cardiology - [place] [address] [place] [address] (Wo rk) Social History Tobacco [...] encounter Progress Notes Omari Mckeon MD - 12/22/2010 1137 EDT Oamri Mckeon MD Valerie Leyva, RN - 12/16/2010 0931 EDT Dose change. Pt aware of change, expresses understanding. No barriers identified. Pt unable to explain low INR, no missed doses, no dietary changes. Gerald Sanchez - 12/16/2010 0900 EDT Pt went to [facility] ED w/ Afib. PTT, CBC w/ diff, Calcium, Glucose, BUN, Creat & Lytes also drawn. Results given to Valerie for review. documented in this encounter Plan of Treatment Upcoming Encounters Date Type Specialty Care Team Description 09/13/2022 Office Visit Cardiology Shelton Smith MD [address] [place] [address] [address] [place] [address] (Wo rk) documented as of this encounter Procedures Procedure Name Priority Date/Time Associated Diagnosis Comme nts PROTIME Routine 12/15/2010 15:15 EDT Results for this procedure are i n the results section . documented in this encounter Results (ABNORMAL) PROTIME (12/15/2010 15:15 EDT) Pathologist Sig nature Protime, External [facility] INR, External 1.9 (A) [facility] Specimen Blood specimen (specimen) Performing Organization Address City/State/ZIP Code Phon e Number [facility] documented in this encounter Visit Diagnoses Not on filedocumented in this encounter Care Teams Cryptographic Clerk Relationship Specialty Start Date End Date Danish Cao, PCP - General 11/26/08 06/26/[address] [place] [address] documented as of this encounter
--- OUTSIDE RECORDS SUMMARY | 2022-02-07 01:34 | XMS_ITS | Encounter Summary ---
:1955 Author Organization [facility] Address [address] [place] [address] Care Team Providers Name Role Phone Danish Cao DO Primary Care Provider Reason for Visit Reason Onset Date Comments Appointment Related 04/19/2011 Encounter Details Date Type Department Care Team Description 04/19/2011 Telephone [facility] Rex Stark, Appointment Related Cardiology - [place] [address] [place] [address] [place] [phone] (Wo rk) Social History Tobacco Use Types [...] this encounter Miscellaneous Notes Telephone Encounter - Edel Serra RN - 04/19/2011 1033 EDT Asked scheduling to book pt in with Dr Stark on 04/28/11 at 4:40 pm - this works for patient. EDEL SERRA, RN elephone Encounter - Deanna Little - 04/19/2011 0907 EDT PT HAS BEEN IN AFIB 3 TIMES IN LAST 2 MONTHS. 8-1 FOR 17 HRS, 8-28 FOR 12 HRS AND 9-4 FOR 12 HRS. PTCAN NOT MAKE 10-20 APPOINTMENT. THAT DAY DOESN'T WORK FOR HIM. PT SAID OTHER AVAILABLE DATES AND TIMES ARE NOT GOOD AND HE FEELS THAT MAYBE DR STARK WOULD WANT TO SEE HIM SOON. PLEASE CALL. PT WILL BE HOME UNTIL NOON TODAY. documented in this encounter Plan of Treatment Upcoming Encounters Date Type Specialty Care Team Description 09/13/2022 Office Visit Cardiology Shelton Smith MD [address] [place] [address] [address] [place], [place] [phone] (Wo rk) documented as of this encounter Visit Diagnoses Not on filedocumented in this encounter Care Teams Brim Curler Relationship Specialty Start Date End Date Danish Cao DO PCP - General 11/26/08 06/26/[address] [place] [address] documented as of this encounter
--- OUTSIDE RECORDS SUMMARY | 2022-02-07 01:34 | XMS_ITS | Encounter Summary ---
:1955 Author Organization [facility] Address [address] [place] [address] Care Team Providers Name Role Phone Danish Cao DO Primary Care Provider Encounter Details Date Type Department Care Team Description 08/12/2011 Anti-coag visit [facility] Yehuda Manriquez MD Cardiology - [place] [address] [place] [address] (Wo rk) Social History Tobacco [...] encounter Progress Notes Keaton Manriquez MD - 08/12/2011 1437 EST Keaton Manriquez MD Valerie Swenson, ROBBY - 08/12/2011 1433 EST Dose change. Message left for pt w/ instructions and requested to call back to report message received. documented in this encounter Plan of Treatment Upcoming Encounters Date Type Specialty Care Team Description 09/13/2022 Office Visit Cardiology Shelton Smith MD [address] [place] [address] [address] [place] [address] (Wo rk) documented as of this encounter Procedures Procedure Name Priority Date/Time Associated Diagnosis Comme nts PROTIME Routine 08/12/2011 11:24 EST Results for this procedure are i n the results section . documented in this encounter Results PROTIME (08/12/2011 11:24 EST) Pathologist Sig nature Protime, External [facility] INR, External 1.9 [facility] Specimen Blood specimen (specimen) Performing Organization Address City/State/ZIP Code Phon e Number [facility] documented in this encounter Visit Diagnoses Not on filedocumented in this encounter Care Teams High Climber Relationship Specialty Start Date End Date Danish Cao, PCP - General 11/26/08 06/26/[address] [place] [address] documented as of this encounter
--- OUTSIDE RECORDS SUMMARY | 2022-02-07 01:34 | XMS_ITS | Encounter Summary ---
:1955 Author Organization [facility] Address [address] [place] [address] Care Team Providers Name Role Phone Danish Cao DO Primary Care Provider Encounter Details Date Type Department Care Team Description 07/20/2011 Anti-coag visit [facility] Yehuda Manriquez MD Cardiology - [place] [address] [place] [address] (Wo rk) Social History Tobacco [...] encounter Progress Notes Keaton Manriquez MD - 07/22/2011 1428 EST Keaton Manriquez MD documented in this encounter Plan of Treatment Upcoming Encounters Date Type Specialty Care Team Description 09/13/2022 Office Visit Cardiology Shelton Smith MD [address] [place], [place] [address] [address] [place] [address] (Wo rk) documented as of this encounter Procedures Procedure Name Priority Date/Time Associated Diagnosis Comme nts PROTIME Routine 07/20/2011 9:20 EST Results for this procedure are i n the results section . documented in this encounter Results PROTIME (07/20/2011 9:20 EST) Pathologist Sig nature Protime, External [facility] INR, External 2.0 [facility] Specimen Blood specimen (specimen) Performing Organization Address City/State/ZIP Code Phon e Number [facility] documented in this encounter Visit Diagnoses Not on filedocumented in this encounter Care Teams Dewer Relationship Specialty Start Date End Date Danish Cao DO PCP - General 11/26/08 06/26/[address] [place] [address] documented as of this encounter
--- OUTSIDE RECORDS SUMMARY | 2022-02-07 01:34 | XMS_ITS | Encounter Summary ---
:1955 Author Organization [facility] Address [address] [place] [address] Care Team Providers Name Role Phone Nash, Danish Wells Primary Care Provider Reason for Referral Cardiology (Routine/Next Available) - Closed Specialty Diagnoses / Procedures Referred By Contact Refer red To Contact Diagnoses A-fib (HCC-CMS) (HCC) Valerie Pitt RN Procedures TRANSESOPHAGEAL ECHO (ALEKSANDAR) Referral ID Status Reason Start Date Expiration Date Visits Requ ested Visits Authorized [id number] Closed 09/27/2012 1 1 ardiology (Routine/Next Available) - Closed Specialty Diagnoses / Procedures Referred By Contact Refer red To Contact Diagnoses A-fib (HCC-CMS) (HCC) Valerie Pitt RN Procedures CARDIAC ABLATION PROCEDURE Referral ID Status Reason Start Date Expiration Date Visits Requ ested Visits Authorized [id number] Closed 09/27/2012 1 1 Encounter Details Date Type Department Care Team Description 09/27/2012 Orders Only [facility] Valerie Pitt A-fib ( CMS-HCC) Cardiology - Sayra BUSTAMANTE (Primary Dx) [address] [place] [id number] Social History Tobacco Use Types Packs/Day [...] 09/13/2022 Office Visit Cardiology Shelton Smith MD [address] [place] [address] [address] [place] [address] (Wo rk) documented as of this encounter Procedures Procedure Name Priority Date/Time Associated Comments Diagnosis CARDIAC ABLATION Routine 10/09/2012 10:21 [place] Resu lts for this PROCEDURE EDT procedure are i n the results section. TRANSESOPHAGEAL ECHO Routine 10/08/2012 10:07 A-fib [place] Results for this (ALEKSANDAR) EDT procedure are i n the results section. documented in this encounter Results CARDIAC ABLATION PROCEDURE (10/09/2012 10:21 EDT) Specimen Narrative CARDIOLOGY - 10/22/2012 8:26 EDT *Cardiology* [address] [place] [address] Electrophysiology Study with Ablation Patient: Braulio Garcia ?Paul dy Date: ? 10/09/2012 ?Accession #: ?[id number] : ? 1955 Referring: Danish Cao Attending: Rex Hendricks MD Fellow: ?Syed son Sa, MD Assisting: Gary Patton RN Copies: SUMMARY OF PROCEDURE: - Baseline rhythm sinus rhythm. - Successful pulmonary vein isolation ab lation. - At the conclusion of the procedure the patient was in ??sinus rhythm. - There were no complications. HISTORY AND INDICATIONS: ??56 y.o. male with symptomatic PAF. He is s/p 2 ablations (PVI and PVE). It should be noted that posterior [place] around the left veins was limited by eso phageal temperature rising. A procedure in 2008 was aborted due to erika tting in the sheath. Coagulation work up was negative. Last a blation was performed in October 2010. He did well for about 1 year. Now he has at least 45 minutes episode of AFIB / week. He also has had 3 episodes of fast regular heart rhythm of 150 bpm that has lead to presyncope. Atrial fibrillation. Transesophageal echocardiography was per formed. Pre-procedure ALEKSANDAR was negative for left atrial thrombus. ANESTHESIA: General anesthesia. PROCEDURE: The risks, benefits, and alternatives to the procedure were explained and informed consent was obtained. The patient name, date of , surgica l site, and procedure were verified prior to the procedure. The pat ient was brought to electrophysiology laboratory in the fast ing state. The groin was prepped and draped in the usual sterile manner. The right femoral vein and left femoral vein were entered under fluoroscopic guidance with the modified Seldinger technique. Sheath and catheter detail(s) in table below.All catheters were placed un tara fluoroscopic guidance. The attending physician was physically prese nt for the entire Electrophysiology Study and/or Ablation procedure. VASCULAR ACCESS AND CATHETER PROPERTIES: + +------+ +-- + Entry site ? Sheath Locations ? Catheter ? + +------+ +-- + L femoral vein 7Fr ?? RA appendage ?? 6 Fr hexapolar ? electrode catheter (2 ? mm spacing; proximal ? ring 25 cm from tip) + +------+ +-- + L femoral vein 7Fr ?? Coronary sinus 7 Fr deflectable ? electrode catheter 10 ? electrodes (2 ? mm-5mm-2mm spacing) ?? + +------+ +-- + R femoral vein 8.5Fr Lasso ? 7 Fr deflectable ? circumferential ? catheter (20, 1mm ? electrodes) ? + +------+ +-- + L femoral vein 8.5Fr Right atrium ?? 8 Fr AcuNav ? intracardiac ? ultrasound catheter ?? + +------+ +-- + R femoral vein 8.5Fr Ablation ? 3.5 mm tip Thermocool ? Navistar SF: 8 Fr ? deflectable ? quadrapolar ablation ? electrode (2 ? mm-5mm-2mm) ? + +------+ +-- + EP STUDY: A comprehensive electrophysiology study with attempted induction was performed. Testing was done at baseline, with and without provocation. Measurements of refractory periods were obtained. Protocols included decremental pacing. Pacing and recording were carried out from the left atrial, right atrial, right ventric ular, coronary sinus, and His bundle sites . AV RILEY/HIS-PURKINJE CONDUCTION INTERVA LS: + + + State ? Baseline ? + + + Rhythm ? Sinus ? + + + Cycle length ?? 1000msec ? + + + A-H ? 70ms ? + + + H-V ? 40ms ? + + + A-V 1:1 ? 400ms ? + + + Maravilla 390ms ? + + + V-A conduction Concentric ? + + + Pre-excitation No ? + + + Comments ? There was 1:1 VA cond uction to less than ? 350 ms ? + + + Pacing from the coronary sinus did not r eveal pre-excitation. Description of induced arrhythmia: Arrhythmia induction: ??After re isolati on of pulmonary veins, attempts at induction at inducing tachycardia wer e not successful. Attemps included burst pacing from the LA and RA . ABLATION AND MAPPING PROCEDURE: Transseptal catheterization was performe dDavid A SL1 8.5 F sheath and dilator were placed in the SVC over a 0. 32 wire. A Transeptal needle large BRK -1 needle was positioned 2mm p roximal to the tip of the dilator and flushed. The needle assembly was then positioned in the fossa ovalis under fluoroscopic, intraca rdiac ultrasound, and pressure guidance. A wire was advanced through th e long sheath and positioned in the left atrium. The needle and dilat or were removed and the sheath was flushed. Heparin bolus and infusion were begun prior to transseptal puncture to keep the ACT > 3 50 seconds. A second sheath was placed in the left atrium using the same technique as the first sheath. It should be noted that transept al puncture was difficult, likely due to a combination of thick and compliant septum. ATRIAL PRESSURES: + +-------+ Right atrial systolic 11mm Hg + +-------+ Right atrial diastolic 5mm Hg + +-------+ Right atrial mean ? 7mm Hg + +-------+ Left atrial systolic ?? 15mm Hg + +-------+ Left atrial diastolic 8mm Hg + +-------+ Left atrial mean ? 10mm Hg + +-------+ Mapping: A Carto shell was made. The pulmonary ve ins and left atrial sites were mapped, using a Lasso Bill catheter and a Thermocool catheter. Mapping was performed during RA pacing, LA pacin g, and coronary sinus pacing. ABLATION PROCEDURE: - REDO PULMONARY VEIN ISOLATION: Discret e reconnections of ??all pulmonary veins were found with t he aid of the lasso ??catheter. The left superior pulmonary vein, left inferior ??pulmonary vein, right inferior pulmon elena vein and right ??superior pulmonary vein were reisolat ed with lasso ??guidance. Radiofrequency ablation was applied to the ??identified sites. The power was limit ed to 30W (25W when ??ablating the posterior left atrium or near the ostia of ??the veins). Esophageal temperature wa s monitored ??throughout. RF on the posterior porti on of the left veins ??was limited by esophageal temperature rise. - Bidirectional pulmonary vein isolation was re-verified ??with the Lasso catheter. At this poin t the patient was in ??sinus rhythm and all pulmonary veins were isolated. Burst ??pacing from the LA and RA did not ind uce tachycardia. The ??procedure was therefore concluded. Hemostasis. At the conclusions of the pr ocedure all sheaths and catheters were removed from the left atr ium. Heparin was discontinued and reversed with Protamine Sulfate. All sheaths and catheters were removed from the body. Manual compressio n was applied to the puncture sites. Groin sites were intact with no h ematoma. STUDY COMPLETION - Fluoroscopy time: 24.2min. - Patient in-room time: 08:06 AM. - Patient out-of-room time: 11:35 AM. - Intake: 1700ml - Output: 450ml - Estimated blood loss: 30ml. Clinical Trial: ??The patient is enrolle d in Longterm Follow Up Study of Patients Undergoing Radiofrequency Ca theter Ablation clinical trial. PLAN: ??Continue anticoagulation. Ketoro lac for pericardial pain. At the completion of the procedure, find ings, results, any complications, and treatment plan were c ommunicated to the patient and reinforced after recovery from anesthesi a. With the patient's consent, the attending physician communicated fin dings, results, any complications, and treatment plan to [facility] members and patient support persons who were present at the conclusion of the procedure. POST PROCEDURAL DISPOSITION: Bedded outpatient status is indicated. ?Electronically signed by Rex Hendricks MD 10/22/2012 08:25 Procedure Note 10/22/2012 *Cardiology* [address] [place] [address] Electrophysiology Study with Ablation Patient: Braulio Garcia Study Date: : 1955 Referring: Danish Cao Attending: Rex Hendricks MD Fellow: Syed son Sa, MD Assisting: Gary Patton RN Copies: SUMMARY OF PROCEDURE: - Baseline rhythm sinus rhythm. - Successful pulmonary vein isolation ab lation. - At the conclusion of the procedure the patient was in sinus rhythm. - There were no complications. HISTORY AND INDICATIONS: 56 y.o. male wi th symptomatic PAF. He is s/p 2 ablations (PVI and PVE). It should be noted that posterior [place] around the left veins was limited by eso phageal temperature rising. A procedure in 2008 was aborted due to erika tting in the sheath. Coagulation work up was negative. Last a blation was performed in October 2010. He did well for about 1 year. Now he has at least 45 minutes episode of AFIB / week. He also has had 3 episodes of fast regular heart rhythm of 150 bpm that has lead to presyncope. Atrial fibrillation. Transesophageal echocardiography was per formed. Pre-procedure ALEKSANDAR was negative for left atrial thrombus. ANESTHESIA: General anesthesia. PROCEDURE: The risks, benefits, and alternatives to the procedure were explained and informed consent was obtained. The patient name, date of , surgica l site, and procedure were verified prior to the procedure. The [facility] ient was brought to electrophysiology laboratory in the fast ing state. The groin was prepped and draped in the usual sterile manner. The right femoral vein and left femoral vein were entered under fluoroscopic guidance with the modified Seldinger technique. Sheath and catheter detail(s) in table below.All catheters were placed un tara fluoroscopic guidance. The attending physician was physically prese nt for the entire Electrophysiology Study and/or Ablation procedure. VASCULAR ACCESS AND CATHETER PROPERTIES: + +------+ +-- + Entry site Sheath Locations Catheter + +------+ +-- + L femoral vein 7Fr RA appendage 6 Fr hexapolar electrode catheter (2 mm spacing; proximal ring 25 cm from tip) + +------+ +-- + L femoral vein 7Fr Coronary sinus 7 Fr deflectable electrode catheter 10 electrodes (2 mm-5mm-2mm spacing) + +------+ +-- + R femoral vein 8.5Fr Lasso 7 Fr defle ctable circumferential catheter (20, 1mm electrodes) + +------+ +-- + L femoral vein 8.5Fr Right atrium 8 F r AcuNav intracardiac ultrasound catheter + +------+ +-- + R femoral vein 8.5Fr Ablation 3.5 mm tip Thermocool Navistar SF: 8 Fr deflectable quadrapolar ablation electrode (2 mm-5mm-2mm) + +------+ +-- + EP STUDY: A comprehensive electrophysiology study with attempted induction was performed. Testing was done at baseline, with and without provocation. Measurements of refractory periods were obtained. Protocols included decremental pacing. Pacing and recording were carried out from the left atrial, right atrial, right ventric ular, coronary sinus, and His bundle sites . AV RILEY/HIS-PURKINJE CONDUCTION INTERVA LS: + + + State Baseline + + + Rhythm Sinus + + + Cycle length 1000msec + + + A-H 70ms + + + H-V 40ms + + + A-V 1:1 400ms + + + AV Wenckebach 390ms + + + V-A conduction Concentric + + + Pre-excitation No + + + Comments There was 1:1 VA conduction t o less than 350 ms + + + Pacing from the coronary sinus did not r eveal pre-excitation. Description of induced arrhythmia: Arrhythmia induction: After re isolation of pulmonary veins, attempts at induction at inducing tachycardia wer e not successful. Attemps included burst pacing from the LA and RA . ABLATION AND MAPPING PROCEDURE: Transseptal catheterization was jacob DICKERSON1 8.5 F sheath and dilator were placed in the SVC over a 0. 32 wire. A Transeptal needle large BRK -1 needle was positioned 2mm p roximal to the tip of the dilator and flushed. The needle assembly was then positioned in the fossa ovalis under fluoroscopic, intraca rdiac ultrasound, and pressure guidance. A wire was advanced through th e long sheath and positioned in the left atrium. The needle and dilat or were removed and the sheath was flushed. Heparin bolus and infusion were begun prior to transseptal puncture to keep the ACT > 3 50 seconds. A second sheath was placed in the left atrium using the same technique as the first sheath. It should be noted that transept al puncture was difficult, likely due to a combination of thick and compliant septum. ATRIAL PRESSURES: + +-------+ Right atrial systolic 11mm Hg + +-------+ Right atrial diastolic 5mm Hg + +-------+ Right atrial mean 7mm Hg + +-------+ Left atrial systolic 15mm Hg + +-------+ Left atrial diastolic 8mm Hg + +-------+ Left atrial mean 10mm Hg + +-------+ Mapping: A Carto shell was made. The pulmonary ve ins and left atrial sites were mapped, using a Lasso Bill catheter and a Thermocool catheter. Mapping was performed during RA pacing, LA pacin g, and coronary sinus pacing. ABLATION PROCEDURE: - REDO PULMONARY VEIN ISOLATION: Discret e reconnections of all pulmonary veins were found with the aid of the lasso catheter. The left superior pulmonary v ein, left inferior pulmonary vein, right inferior pulmonar y vein and right superior pulmonary vein were reisolated with lasso guidance. Radiofrequency ablation was a pplied to the identified sites. The power was limited to 30W (25W when ablating the posterior left atrium or n ear the ostia of the veins). Esophageal temperature was monitored throughout. RF on the posterior portion of the left veins was limited by esophageal temperature r ise. - Bidirectional pulmonary vein isolation was re-verified with the Lasso catheter. At this point the patient was in sinus rhythm and all pulmonary veins we re isolated. Burst pacing from the LA and RA did not induc e tachycardia. The procedure was therefore concluded. Hemostasis. At the conclusions of the pr ocedure all sheaths and catheters were removed from the left atr ium. Heparin was discontinued and reversed with Protamine Sulfate. All sheaths and catheters were removed from the body. Manual compressio n was applied to the puncture sites. Groin sites were intact with no h ematoma. STUDY COMPLETION - Fluoroscopy time: 24.2min. - Patient in-room time: 08:06 AM. - Patient out-of-room time: 11:35 AM. - Intake: 1700ml - Output: 450ml - Estimated blood loss: 30ml. Clinical Trial: The patient is enrolled in Adult [employer] Follow Up Study of Patients Undergoing Radiofrequency Ca theter Ablation clinical trial. PLAN: Continue anticoagulation. Ketorola c for pericardial pain. At the completion of the procedure, find ings, results, any complications, and treatment plan were c ommunicated to the patient and reinforced after recovery from anesthesi a. With the patient's consent, the attending physician communicated fin dings, results, any complications, and treatment plan to [facility] members and patient support persons who were present at the conclusion of the procedure. POST PROCEDURAL DISPOSITION: Bedded outpatient status is indicated. E lectronically signed by Rex Hendricks MD 10/22/2012 08:25 Performing Organization Address City/State/ZIP Code Phon e Number [facility] CARDIOLOGY TRANSESOPHAGEAL ECHO (ALEKSANDAR) (10/08/2012 10:07 EDT) Specimen Narrative CARDIOLOGY - 10/08/2012 11:41 EDT *Interpreting Group:* *[facility]* [address] [place] [address] *STUDY CONCLUSIONS* Summary: 1. Left ventricle: There was mild concen tric hypertrophy. ?? Systolic function was normal. The es timated ejection ?? fraction was 60-65%. Wall motion was normal; there were ?? no regional wall motion abnormalitie s. 2. Aortic valve: Trivial regurgitation. 3. Aortic root: The aortic root was mild ly dilated (41mm). 4. Ascending aorta: The ascending aorta was at upper normal ?? limits. 5. Descending aorta: The descending aort a was normal in ?? size; it had mild diffuse disease. 6. Left atrium: The atrium was mildly di lated. No evidence ?? of thrombus in the atrial cavity or appendage. 7. Right atrium: No evidence of thrombus . 8. Atrial septum: No defect or patent fo ramen ovale was ?? identified. There was a small atrial septal aneurysm. *PATIENT PRESENTATION* Height: ? 175cm (68.9in ) S/D Pressure: 131 / 80 Weight: ? 68.2kg (150lb ) BSA: ?1.82m^2 Test start time: ??10:23 AM. Test stop time: ??10:32 AM. ATTENDING ?Rex Hendricks MD ORDERING ? Rex Hendricks MD ATTENDING ?Nacho Knapp MD REFERRING ?Danish Cao FELLOW ? Annmarie Sandra MD VIOLIN REPAIRER ??Annmarie Sandra MD PERFORMING ?? Fahc, Aleksandar *PROCEDURE DATA* Procedure information: ??Dr. Nacho mayen supervised and was present for the performance of the entire proced ure. This study was interpreted by [facility] at [facility]. ??Study status: ??Routine. Diagnostic transesophageal echocardiography. ??2D, complete spectra l Doppler, and color Doppler. Consent: ??The risks, benefits, and alte rnatives to the procedure were explained to the patient and consent was verbally obtained. ??Barriers to education: ??No barriers to education identified. Initial setup. The patient was brought to the laboratory in the fasting state. Surface ECG leads, blood pressure measurements, and pulse oximetric signals were monitored. Sedation. Conscious sowmya tion was administered by Dayanna Coffman RN, RDCS. A Tra nsesophageal echocardiogram was performed. Topical anesthesia was ob tained using viscous lidocaine. An adult multiplane transesop hageal probe was inserted by Annmarie Sandra # MD Chikiswithout albert saha. Images were obtained using a Madelin IE33 2 cardiac ultrasoun d machine. Image quality was good. The transesophageal probe was donta cleo. ??Study completion: ??The patient tolerated the procedure well. Th ere was no blood loss or specimens removed during the procedure. There were no complications. Administered medications: ?? Fentanyl, 7 5mcg, IV. ??Midazolam, 4mg, IV. ?? *INDICATIONS AND HISTORY* Indications: ?? Atrial Fibrillation (427 .31). *CARDIAC ANATOMY* Left ventricle: ??There was mild concent ana hypertrophy. Systolic function was normal. The estimated eject ion fraction was 60-65%. Wall motion was normal; there were no regiona l wall motion abnormalities. Aortic valve: ?? Structurally normal khurram ve. Trileaflet; normal thickness leaflets. Cusp separation was normal. ??No evidence of vegetation. ??Doppler: ?? Trivial regurg itation. Aorta: ??There was mild atheromatous jayce que. There was no evidence for dissection. Aortic root: The aortic root was mildly dilated (41mm). Ascending aorta: The ascending aorta was at upper normal limits. Aortic arch: The aortic arch was normal in size. Descending aorta: The descending aorta w as normal in size; it had mild diffuse disease. Mitral valve: ?? Structurally normal khurram ve. ?? Leaflet separation was normal. ??No evidence of vegetation. ??D oppler: ?? Trivial regurgitation. Left atrium: ??The atrium was mildly dil ated. ??No evidence of thrombus in the atrial cavity or appendage. The a ppendage was morphologically a left appendage, multilobulated, and of n ormal size. Emptying velocity was normal. Atrial septum: ??No defect or patent for amen ovale was identified. There was a small atrial septal aneurysm . Right ventricle: ??The cavity size was n ormal. Wall thickness was normal. Systolic function was normal. Pulmonic valve: ?Structurally normal valve. ?No evidence of vegetation. ??Doppler: ?? Trivial regurg itation. Tricuspid valve: ?? Structurally normal valve. ?? Leaflet separation was normal. ??No evidence of vegetation. ??D oppler: ?? Mild regurgitation. Mean gradient: 4.9mm Hg (D). Peak gradie nt: 9.5mm Hg (D). Pulmonary artery: ?? The main pulmonary artery was normal-sized. Right atrium: ??The atrium was normal in size. ??No evidence of thrombus. Pericardium: ??There was no pericardial effusion. *MEASUREMENT TABLES* Doppler measurements ?Ronda l Main pulmonary artery Pressure, S ?20 mm Hg <=30 Tricuspid valve Peak E velocity ??153.97 cm/s ??------ Mean velocity, D 110.42 cm/s ??------ Mean gradient, D ?4.9 mm Hg ------ Peak gradient, D ?9.5 mm Hg ------ VTI at annulus ?0.5 cm ?----- - Legend: Mean values are shown as u=mean value. Asterisk (*) saldana values outside specif ied normal range. Electronically signed by Nacho Knapp MD [id number] Procedure Note 10/08/2012 *Interpreting Group:* *[facility]* [address] [place] [address] *STUDY CONCLUSIONS* Summary: 1. Left ventricle: There was mild concen tric hypertrophy. Systolic function was normal. The estim ated ejection fraction was 60-65%. Wall motion was no rmal; there were no regional wall motion abnormalities. 2. Aortic valve: Trivial regurgitation. 3. Aortic root: The aortic root was mild ly dilated (41mm). 4. Ascending aorta: The ascending aorta was at upper normal limits. 5. Descending aorta: The descending aort a was normal in size; it had mild diffuse disease. 6. Left atrium: The atrium was mildly di lated. No evidence of thrombus in the atrial cavity or bib endage. 7. Right atrium: No evidence of thrombus . 8. Atrial septum: No defect or patent fo ramen ovale was identified. There was a small atrial se ptal aneurysm. *PATIENT PRESENTATION* Height: 175cm (68.9in ) S/D Pressure: 131 / 80 Weight: 68.2kg (150lb ) BSA: 1.82m^2 Test start time: 10:23 AM. Test stop time: 10:32 AM. ATTENDING eRx Hendricks MD ORDERING Rex Hendricks MD ATTENDING Nacho Knapp MD REFERRING Danish aCo FELLOW Annmarie Sandra MD VIOLIN REPAIRER Annmarie Sandra MD PERFORMING Fahc, Aleksandar *PROCEDURE DATA* Procedure information: Dr. Nacho Knapp supervised and was present for the performance of the entire proced ure. This study was interpreted by [facility] at [facility]. Study status: Routine. Diag nostic transesophageal echocardiography. 2D, complete spectral Doppler, and color Doppler. Consent: The risks, benefits, and altern atives to the procedure were explained to the patient and consent was verbally obtained. Barriers to education: No barriers to education i dentified. Initial setup. The patient was brought to the laboratory in the fasting state. Surface ECG leads, blood pressure measurements, and pulse oximetric signals were monitored. Sedation. Conscious sowmya tion was administered by Dayanna Coffman RN, RDCS. A Tra nsesophageal echocardiogram was performed. Topical anesthesia was ob tained using viscous lidocaine. An adult multiplane transesop hageal probe was inserted by Annmarie Diop MDwithkarine miller. Images were obtained using a Madelin IE33 2 cardiac ultrasoun d machine. Image quality was good. The transesophageal probe was donta cleo. Study completion: The patient tolerated the procedure well. Th ere was no blood loss or specimens removed during the procedure. There were no complications. Administered medications: Fentanyl, 75mc g, IV. Midazolam, 4mg, IV. *INDICATIONS AND HISTORY* Indications: Atrial Fibrillation (427.31 ). *CARDIAC ANATOMY* Left ventricle: There was mild concentri c hypertrophy. Systolic function was normal. The estimated eject ion fraction was 60-65%. Wall motion was normal; there were no regiona l wall motion abnormalities. Aortic valve: Structurally normal valve. Trileaflet; normal thickness leaflets. Cusp separation was normal. No evidence of vegetation. Doppler: Trivial regurgitati on. Aorta: There was mild atheromatous plaqu e. There was no evidence for dissection. Aortic root: The aortic root was mildly dilated (41mm). Ascending aorta: The ascending aorta was at upper normal limits. Aortic arch: The aortic arch was normal in size. Descending aorta: The descending aorta w as normal in size; it had mild diffuse disease. Mitral valve: Structurally normal valve. Leaflet separation was normal. No evidence of vegetation. Doppl er: Trivial regurgitation. Left atrium: The atrium was mildly dilat ed. No evidence of thrombus in the atrial cavity or appendage. The a ppendage was morphologically a left appendage, multilobulated, and of n ormal size. Emptying velocity was normal. Atrial septum: No defect or patent eh en ovale was identified. There was a small atrial septal aneurysm . Right ventricle: The cavity size was nor mal. Wall thickness was normal. Systolic function was normal. Pulmonic valve: Structurally normal valv e. No evidence of vegetation. Doppler: Trivial regurgitati on. Tricuspid valve: Structurally normal khurram ve. Leaflet separation was normal. No evidence of vegetation. Doppl er: Mild regurgitation. Mean gradient: 4.9mm Hg (D). Peak gradie nt: 9.5mm Hg (D). Pulmonary artery: The main pulmonary art justin was normal-sized. Right atrium: The atrium was normal in s ize. No evidence of thrombus. Pericardium: There was no pericardial ef fusion. *MEASUREMENT TABLES* Doppler measurements Normal Main pulmonary artery Pressure, S 20 mm Hg <=30 Tricuspid valve Peak E velocity 153.97 cm/s ------ Mean velocity, D 110.42 cm/s ------ Mean gradient, D 4.9 mm Hg ------ Peak gradient, D 9.5 mm Hg ------ VTI at annulus 0.5 cm ------ Legend: Mean values are shown as u=mean value. Asterisk (*) saldana values outside specif ied normal range. Electronically signed by Nacho Knapp MD [id number] Performing Organization Address City/State/ZIP Code Phon e Number [facility] documented in this encounter Visit Diagnoses Diagnosis A-fib (HCC-CMS) (HCC) - Primary Atrial fibrillation documented in this encounter Care Teams Visiting Teacher Relationship Specialty Start Date End Date Danish Cao, PCP - General 11/26/08 06/26/16 [address] [place] [id number] documented as of this encounter
--- OUTSIDE RECORDS SUMMARY | 2022-02-07 01:34 | XMS_ITS | Encounter Summary ---
:1955 Author Organization [facility] Address [address] [place] [address] Care Team Providers Name Role Phone Danish Cao Rusesll DO Primary Care Provider Encounter Details Date Type Department Care Team Description 07/04/2011 Anti-coag visit [facility] Yehuda Manriquez MD Cardiology - [place] [address] [place] [address] (Wo rk) Social History Tobacco [...] encounter Progress Notes Omari Mckeon MD - 07/06/2011 0216 EST Omari Mckeon MD Valerie Swenson, RN - 07/04/2011 1602 EST No warfarin dose change. Left message for pt and advised pt to call back w/ questions and to confirm message received. documented in this encounter Plan of Treatment Upcoming Encounters Date Type Specialty Care Team Description 09/13/2022 Office Visit Cardiology Shelton Smith MD [address] [place] [address] [address] [place] [address] (Wo rk) documented as of this encounter Procedures Procedure Name Priority Date/Time Associated Diagnosis Comme nts PROTIME Routine 07/04/2011 10:20 EST Results for this procedure are i n the results section . documented in this encounter Results PROTIME (07/04/2011 10:20 EST) Pathologist Sig nature Protime, External [facility] INR, External 3.1 [facility] Specimen Blood specimen (specimen) Performing Organization Address City/State/ZIP Code Phon e Number [facility] documented in this encounter Visit Diagnoses Not on filedocumented in this encounter Care Teams Edge Polisher Relationship Specialty Start Date End Date Danish Cao DO PCP - General 11/26/08 06/26/[address] [place] [address] documented as of this encounter
--- OUTSIDE RECORDS SUMMARY | 2022-02-07 01:34 | XMS_ITS | Encounter Summary ---
:1955 Author Organization [facility] Address [address] [place] [address] Care Team Providers Name Role Phone Danish Cao Russell DO Primary Care Provider Encounter Details Date Type Department Care Team Description 07/11/2011 Anti-coag visit [facility] Yehuda Manriquez MD Cardiology - [place] [address] [place] [address] (Wo rk) Social History Tobacco [...] encounter Progress Notes Omari Mckeon MD - 07/12/2011 1620 EST Omari Mckeon MD Valerie Swenson, RN - 07/11/2011 1154 EST Dose change. Message left for pt w/ instructions and requested to call back to report message received. documented in this encounter Plan of Treatment Upcoming Encounters Date Type Specialty Care Team Description 09/13/2022 Office Visit Cardiology Shelton Smith MD [address] [place] [address] [address] [place] [address] (Wo rk) documented as of this encounter Procedures Procedure Name Priority Date/Time Associated Diagnosis Comme nts PROTIME Routine 07/11/2011 9:01 EST Results for this procedure are i n the results section . documented in this encounter Results PROTIME (07/11/2011 9:01 EST) Pathologist Sig nature Protime, External [facility] INR, External 3.2 [facility] Specimen Blood specimen (specimen) Performing Organization Address City/State/ZIP Code Phon e Number [facility] documented in this encounter Visit Diagnoses Not on filedocumented in this encounter Care Teams Tip Fixer Relationship Specialty Start Date End Date Danish Cao DO PCP - General 11/26/08 06/26/[address] [place] [address] documented as of this encounter
--- OUTSIDE RECORDS SUMMARY | 2022-02-07 01:34 | XMS_ITS | Encounter Summary ---
:1955 Author Organization [facility] Address [address] [place] [address] Care Team Providers Name Role Phone Danish Cao DO Primary Care Provider Encounter Details Date Type Department Care Team Description 11/23/2010 Anti-coag visit [facility] Yehuda Manriquez MD Cardiology - [place] [address] [place] [address] (Wo rk) Social History Tobacco [...] encounter Progress Notes Valerie Pitt RN - 11/25/2010 1218 EDT Dose corrected Keaton Manriquez MD - 11/23/2010 1842 EDT Keaton Manriquez MD, MD Valerie Leyva RN - 11/23/2010 1340 EDT Clinical Staff notified with Critical Results Ordering Provider: Declan Date and Time Test was Performed: See below Results: see below Result Read Back and Verified: yes Provider Notified: Provider Name: Valerie Pitt Date: 11/23/10 Time: 9:40 AM Treatment Plan: approx 15% dose reduction Patient Notified: yes, via email; also voice mail left on home answering machine Date: 11/23/10 Time: 1335 PM Gerald Sanchez - 11/23/2010 1044 EDT Non Clinical Staff notified with Critical Results Ordering Provider: Keaton Manriquez MD Date and Time Test was Performed: 11/23/10 @ 0842 AM Results: 40.3/4.1. No call received from [facility] lab--fax received only by Gerald Da Silva at 1040 AM. Called [facility] and verified result with Man. Result Read Back and Verified: yes Nursing/Provider Notified: Nursing/Provider Name: Valerie Pitt RN Date: 11/23/10 Time: 1044 AM documented in this encounter Plan of Treatment Upcoming Encounters Date Type Specialty Care Team Description 09/13/2022 Office Visit Cardiology Shelton Smith MD [address] [place] [address] [address] [place] [address] (Wo rk) documented as of this encounter Procedures Procedure Name Priority Date/Time Associated Diagnosis Comme nts PROTIME Routine 11/23/2010 8:42 EDT Results for this procedure are i n the results section . documented in this encounter Results (ABNORMAL) PROTIME (11/23/2010 8:42 EDT) Pathologist Sig nature Protime, External [facility] INR, External 4.1 (A) [facility] Specimen Blood specimen (specimen) Performing Organization Address City/State/ZIP Code Phon e Number [facility] documented in this encounter Visit Diagnoses Not on filedocumented in this encounter Care Teams Inside Wirer Relationship Specialty Start Date End Date Danish Cao DO PCP - General 11/26/08 06/26/16 [address] [place] [address] documented as of this encounter
--- OUTSIDE RECORDS SUMMARY | 2022-02-07 01:34 | XMS_ITS | Encounter Summary ---
:1955 Author Organization [facility] Address [address] [place] [address] Care Team Providers Name Role Phone Danish Cao DO Primary Care Provider Encounter Details Date Type Department Care Team Description 06/13/2011 Hospital Encounter [facility] Rex Hendricks Cardiovascular Unit MD Delphine [address] [facility] [address] [place] [address] [address] [phone] [facility] [address] [place] [address] (Wo rk) Social History Tobacco [...] Sign Reading Time Taken Comments Blood Pressure 141/93 06/13/2011 1152 EST Pulse - - Temperature 36.2 ??C (97.2 ??F) 06/13/2011 1103 EST Respiratory Rate 20 06/13/2011 1130 EST Oxygen Saturation 100% 06/13/2011 1145 EST Inhaled Oxygen Concentration - - Weight - - Height - - Body Mass Index - - documented in this encounter Functional Status Cognitive Status Response Date of Assessment Because of a physical, mental, or emotional condition, do Ye s 11/10/2010 you have serious difficulty concentrating, remembering, or making decisions? (5 years old or older) documented as of this encounter Discharge Instructions Jackie Almaguer RN - 06/13/2011 Post Transesophageal Echocardiography Information / Instructions Cardiac Ultrasound Laboratory 1. You have had a Transesophageal Echocardiogram (FREEDOM) performed by Dr. Espinoza. 2. A complete report of the finding [...] or concerns, contact above physician or the animal husbandry professor online advertising analyst at [phone]. If you are a patient of [facility] ([facility]) please contact their office at [phone]. 9. If you have any serious complications, go immediately to your local immediate health care facility. 10. Additional information / instructions: Plan a fib. Ablation on 06/14, 6:30 at registration. documented in this encounter Medications at Time of Discharge Medication Sig Dispensed Refills Start Date End Date ascorbic acid (VITAMIN Take 500 mg by mouth 0 C) 500 mg tablet daily. Multivitamins with Take 1 Tab by mouth 0 Minerals Tab daily. pantoprazole (PROTONIX) Take 1 Tab by mouth 30 Tab 0 06/15/2011 40 mg tablet daily. pantoprazole (PROTONIX) Take 1 Tab by mouth 30 Tab 0 07/07/2011 40 mg tablet daily. warfarin (COUMADIN) 2 Take 2 Tabs by mouth 75 Tab 4 05/2507/07/2011 mg tablet daily. As directed warfarin (COUMADIN) 2 warfarin dose is 5 mg 90 Tab 3 06/15/2011 mg tabletIndications: Monday and Monday; 4 [...] as directed. documented as of this encounter Discharge Disposition Disposition Code Departure Means Destination Home or Self Care documented in this encounter Progress Notes Jackie Sapp RN - 06/13/2011 1207 EST Pt jeffry liquids and solids. Reviewed D/C instructions c pt and spouse verbally, questions answered. Copy given. D/c c spouse in W/C in stable condition. Yashira Moreira RN - 06/13/2011 1112 EST 1102 Patient received post FREEDOM for ablation procedure 06/13/11. Awake and alert. Denies pain. No c/osore throat. No difficulty swallowing with no cough noted. in with patient. Patient aware of NPO status at present per protocol. Bed in low position with call tolentino given and side rails up. 1130 Tolerated po ice chips without difficulty. 1140 Tolerating po. Report to Jackie who assumes care of this patient. ra Cabrera - 06/13/2011 1049 EST Transesophageal Echocardiogram Brief Post-Procedure Note Date of Procedure: 06/13/2011 Attending: Braulio Espinoza MD Fellow: Teddy Cabrera MD Pre-Op Diagnosis: a-fib Post-Op Diagnosis: a-fib Procedure: Transesophageal echocardiogram. Findings: no DANIELA thrombus Anesthesia Type: A moderate level of anesthesia/conscious sedation was used. Estimated Blood Loss: Unless otherwise noted, there was no blood loss, specimens removed, cultures obtained, or drains retained. Complications: None Disposition and Condition: The patient was sent back to the original unit in Good condition. ORA CABRERA MD 06/13/2011 10:50 Constanza Sandoval RN - 06/13/2011 0929 EST Braulio Garcia arrived to the Cardiovascular Unit ambulatory. Patient identified per [facility] policy and oriented to Unit. Reviewed pre-procedure instructions with Braulio Garcia. Pre-FREEDOM prep completed per protocol. Stretcher in low position with side rails up & call tolentino within patient reach. All questions answered. Patient's spouse at bedside, doing Reiki. documented in this encounter H&P Notes Ora Cabrera - 06/13/2011 1029 EST Sedation for Procedure History & Physical Date: 06/13/2011 Time: 10:30 Location: Echo Lab Planned Procedure: FREEDOM Chief Complaint/Indications for Procedure: Afib History: Previous Complication with Sedation and/or Anesthesia? No Allergies: Allergies Allergen Reactions ??? Other - See Comments Swelling of tongue Fresh fruit ??? Amiodarone Ineffective for A-Fib hallucinations ??? Atenolol Hallucinations and restlessness ??? Flecainide Other (See Comments) Hallucinations ??? Keflex (Cephalexin) Nausea Only Current Medications: Prescriptions prior to admission Medication Sig Dispense Refill ??? warfarin (COUMADIN) 5 mg tablet Take 5 mg by mouth daily. ??? Multivitamins with [...] ??? Tonsillectomy childhood ??? Nasal septum surgery 2007 ??? Ablation of dysrhythmic focus History Substance Use Topics ??? Smoking status: Never Smoker ??? Smokeless tobacco: Never Used ??? Alcohol Use: Yes rare Family History: Family History Problem Relation Age of Onset ??? High Cholesterol Mother ??? Heart Disease Father ??? Heart Disease Brother ??? Cancer Maternal Grandfather ??? Heart Disease Paternal Grandmother Review of Systems as pertinent: Physical: Vital Signs: BP 128/88 Temp(Src) 34.5 ??C (94.1 ??F) (Tympanic) Resp 16 SpO2 100% Heart Examination: Cardiac Regularity: Regular Respiratory Examination: Respiratory Pattern: Regular Breath Sounds Right: Clear Breath Sounds Left: Clear Additional physical exam related to the proposed procedure, patient activity, disease state and treatment as pertinent: Assessment: Previous complications with sedation or anesthesia?: No Airway Concerns: None Anesthesia Classification: ASA 3 Fasting Time: Time of last liquid intake: 1800 Date of Last Liquid Intake: 06/12/11 Time of last solid intake: 1800 Date of last solid intake: 06/12/11 Patient Appropriate Candidate for Planned Sedation?: Yes documented in this encounter Procedure Notes Braulio Espinoza MD - 08/10/2011 1346 ESTProcedure(s): TRANSESOPHAGEAL ECHO (FREEDOM)Pre-Procedure Diagnose(s): Atrial fibrillation (HCC-CMS) (HCC) Transesophageal Echocardiogram Brief Post-Procedure Note Date of Procedure: 06/13/2011 Attending: Braulio Espinoza MD Fellow: Teddy Cabrera MD Pre-Op Diagnosis: a-fib Post-Op Diagnosis: a-fib Procedure: Transesophageal echocardiogram. Findings: no DANIELA thrombus Anesthesia Type: A moderate level of anesthesia/conscious sedation was used. Estimated Blood Loss: Unless otherwise noted, there was no blood loss, specimens removed, cultures obtained, or drains retained. Complications: None Disposition and Condition: The patient was sent back to the original unit in Good condition. Originally reported by ORA CABRERA MD 06/13/2011 10:50 documented in this encounter Miscellaneous Notes Scanned Note-Null - Civil Engineer'S Aide, Scan - 06/16/2011 0113 EST canned Note- Null - Civil Engineer'S Aide, Scan - 06/16/2011 0113 EST canned Note- Null - Civil Engineer'S Aide, Scan - 06/16/2011 011 EST documented in this encounter Plan of Treatment Upcoming Encounters Date Type Specialty Care Team Description 09/13/2022 Office Visit Cardiology Shelton Smith MD [address] [place] [address] [address] [place] [address] (Wo rk) Pending Results Name Type Priority Associated Diagnoses Date/Ti me ACT, CELITE ISTAT Point of Care Routine 1 9:39 EST Testing ACT, CELITE ISTAT Point of Care Routine 1 10:32 EST Testing ACT, CELITE ISTAT Point of Care Routine 1 11:16 EST Testing ACT, CELITE ISTAT Point of Care Routine 1 11:54 EST Testing Scheduled Orders Name Type Priority Associated Diagnoses Order S chedule ACT, CELITE ISTAT Point of Care Routine ONCE for 1 Testing Occurrences sta rting 06/15/2011 ACT, CELITE ISTAT Point of Care Routine ONCE for 1 Testing Occurrences sta rting 06/15/2011 ACT, CELITE ISTAT Point of Care Routine ONCE for 1 Testing Occurrences sta rting 06/15/2011 ACT, CELITE ISTAT Point of Care Routine ONCE for 1 Testing Occurrences sta rting 06/15/2011 documented as of this encounter Procedures Procedure Name Priority Date/Time Associated Comments Diagnosis ACT, CELITE ISTAT Routine 06/14/2011 11:54 Result s for this EST procedure are i n the results section. ACT, CELITE ISTAT Routine 06/14/2011 11:16 Result s for this EST procedure are i n the results section. ACT, CELITE ISTAT Routine 06/14/2011 10:32 Result s for this EST procedure are i n the results section. ACT, CELITE ISTAT Routine 06/14/2011 9:39 Results for this EST procedure are i n the results section. PROTIME STAT 06/13/2011 8:46 Results for this EST procedure are i n the results section. COMPLETE BLOOD COUNT STAT 06/13/2011 8:46 Resu lts for this EST procedure are i n the results section. BUN STAT 06/13/2011 8:46 Results for this EST procedure are i n the results section. CREATININE STAT 06/13/2011 8:46 Results for this EST procedure are i n the results section. ELECTROLYTES STAT 06/13/2011 8:46 Results for this EST procedure are i n the results section. documented in this encounter Results ACT, CELITE ISTAT (06/14/2011 11:54 EST) Activated Clotting [address] [facility] Time [place] [id number] [facility] Comment: Test performed by Cardiology. Baseline ref range for ACT = 84 to 139 seconds For non baseline ref ranges see procedure. Specimen Performing Organization Address [facility]/ZIP Code Phon e Number [facility] [address] [place] [address] SERVICES [facility] [address] [place] [address] ACT, CELITE ISTAT (06/14/2011 11:16 EST) Activated Clotting 352 [facility] Time Tech ID [id number] [facility] Comment: Test performed by Cardiology. Baseline ref range for ACT = 84 to 139 seconds For non baseline ref ranges see procedure. Specimen Performing Organization Address [facility]/ZIP Code Phon e Number [facility] [address] [place] [address] SERVICES [facility] [address] [place] [address] ACT, CELITE ISTAT (06/14/2011 10:32 EST) Activated Clotting 348 [facility] Time Tech ID [id number] [facility] Comment: Test performed by Cardiology. Baseline ref range for ACT = 84 to 139 seconds For non baseline ref ranges see procedure. Specimen Performing Organization Address [facility]/ZIP Code Phon e Number [facility] [address] [place] [address] SERVICES [facility] [address] [place] [address] ACT, CELITE ISTAT (06/14/2011 9:39 EST) Activated Clotting 163 [facility] Time Tech ID [id number] [facility] Comment: Test performed by Cardiology. Baseline ref range for ACT = 84 to 139 seconds For non baseline ref ranges see procedure. Specimen Performing Organization Address [facility]/ZIP Code Phon e Number [facility] [address] [place] [address] SERVICES [facility] [address] [place] [address] HEMAGRAM (06/13/2011 8:46 EST) Pathologist Sig nature WBC 4.06 4.0 - 10.4 K/cmm [facility] RBC 5.25 4.36 - 5.78 M/cmm [facility] Hemoglobin 16.2 13.8 - 17.3 gm/dl [facility] HCT 46.3 39.5 - 50.2 % [facility] MCV 88 81 - 95 fl [facility] MCH 30.9 27.6 - 33.0 pg [facility] MCHC 35.1 32.8 - 36.4 gm/dl [facility] PLT 287 141 - 320 K/cmm [facility] RDW-CV 12.9 11.8 - 14.1 % [facility] Specimen Blood specimen (specimen) Performing Organization Address [facility] Phon e Number [facility] [address] [place] [address] SERVICES [facility] [address] [place] [address] (ABNORMAL) PROTIME (06/13/2011 8:46 EST) Pro Time 32.9 (H) 9.5 - 13.1 [facility] secs I.N.R. 2.8 (H) 0.9 - 1.1 [facility] Comment: Ratio Moderate Intensity Coumadin INR = 2.0-3.0 Adjustments in anticoagulant therapy dose should be based upon the INR and NOT the Pro Time. Specimen Blood specimen (specimen) Performing Organization Address City/[facility]/ZIP [facility] Phon e Number [facility] [address] [place] [address] SERVICES [facility] [address] [place] [address] CREATININE (06/13/2011 8:46 EST) Pathologist Sig nature Creatinine 0.90 0.7 - 1.5 mg/dl [facility] GFR, Calculated >60 >60 ml/min/1.73m2 [facility] Specimen Blood specimen (specimen) Performing Organization Address City/[facility]/ZIP Code Phon e Number [facility] [address] [place] [address] SERVICES [facility] [address] [place] [address] BUN (06/13/2011 8:46 EST) Pathologist Sig nature BUN 22 10 - 26 mg/dl [facility] Specimen Blood specimen (specimen) Performing Organization Address City/[facility]/ZIP Code Phon e Number [facility] [address] [place] [address] SERVICES [facility] [address] [place] [address] ELECTROLYTES (06/13/2011 8:46 EST) Pathologist Sig nature Sodium 139 136 - 145 mEq/L [facility] Potassium 4.9 3.5 - 5.0 mEq/L [facility] Chloride 102 96 - 110 mEq/L [facility] CO2 30 24 - 32 mEq/L [facility] Specimen Blood specimen (specimen) Performing Organization Address [facility] Phon e Number [facility] [address] [place] [address] SERVICES [facility] [address] [place] [address] documented in this encounter Visit Diagnoses Not on filedocumented in this encounter Administered Medications Inactive Administered Medications - up to 3 most recent administrations Medication Order MAR Action Action Date Dose Rate Site fentanyl citrate (PF) 50 mcg/mL Given 06/13/2011 10:33 EST 50 mc g injection 25-200 mcg 25-200 mcg, intravenous, ONCE PRN, 1 dose, Starting on Mon06/13/11 at 1025, Until Mon06/13/11 at 1033, Sedation, Routine, Intraprocedure midazolam (VERSED) injection 0.5-10 mg Given 06/13/2011 10:33 EST 3 mg 0.5-10 mg, intravenous, ONCE PRN, 1 dose, Starting on Mon06/13/11 at 1025, Until Mon06/13/11 at 1033, Sedation, Routine, Intraprocedure sodium chloride 0.9 % (NS) infusion New Bag 06/13/2011 9:28 EST 25 mL/hr 25 mL/hr at 25 mL/hr, 25 mL/hr, intravenous, CONTINUOUS, Starting on Mon06/13/11 at 0915, Until Mon06/14/11 at 0029, Routine, Preprocedure documented in this encounter Active and Recently Administered Medications Times are shown in EST. Continuous Medication Order 06/11/2011 06/12/2011 06/13/2011 sodium chloride 0.9 % (NS) infusion (CANCELED) 927 (New Bag - Provider: Constanza Chase, ROBBY) at 25 mL/hr, Intravenous, CONTINUOUS, St arting 06/13/11 at 0915, Until Mon06/14/11 at 0029 PRN Medication Order 06/11/2011 06/12/2011 06/13/2011 fentanyl citrate (PF) 50 mcg/mL injection 25-200 mcg (COMPLETED) 1033 (Given - Provider: Kellee Coffman, ROBBY) 25-200 mcg, Intravenous, ONCE PRN, 1 dos e, Starting Mon06/13/11 at 1025, Until Mon06/13/11 at 1033, Sedation midazolam (VERSED) injection 0.5-10 mg (COMPLETED) 1033 (Given - Provider: Kellee Coffman, ROBBY) 0.5-10 mg, Intravenous, ONCE PRN, 1 dose , Starting Mon06/13/11 at 1025, Until Mon06/13/11 at 1033, Sedation documented in this encounter Orders Medications Ordered That Might Not Have Count Last Ord ered Date First Ordered Date Been Administered flumazenil (ROMAZICON) injection 0.2 mg 1 06/13/20 11 naloxone (NARCAN) injection 0.2-0.4 mg 1 1 Nursing Count Last Ordered Date First Ordered Date ASSESS GAG REFLEX 1 06/13/2011 INSERT PERIPHERAL IV 1 06/13/2011 NOTIFY PHYSICIAN (SPECIFY) 1 06/13/2011 NURSING COMMUNICATION 1 06/13/2011 VITAL SIGNS 1 06/13/2011 Admission Count Last Ordered Date First Ordered Date ADMIT TO OUTPATIENT 1 06/13/2011 TEACHING SERVICE 1 06/13/2011 Discharge Count Last Ordered Date First Ordered Date DISCHARGE PATIENT 2 06/13/2011 documented in this encounter Care Teams Regional Driver Relationship Specialty Start Date End Date Danish Cao DO PCP - General 11/26/08 06/26/[address] [place] [address] documented as of this encounter
--- OUTSIDE RECORDS SUMMARY | 2022-02-07 01:34 | XMS_ITS | Encounter Summary ---
:1955 Author Organization [facility] Address [address] [place] [address] Care Team Providers Name Role Phone Danish Cao DO Primary Care Provider Encounter Details Date Type Department Care Team Description 11/29/2010 Anti-coag visit [facility] Valerie Pitt RN A -fib ([facility] Cardiology - [address] [place] [phone] Social History Tobacco Use Types Packs/Day [...] encounter Progress Notes Keaton Manriquez MD - 11/30/2010 1349 EDT Keaton Manriquez MD, MD Valerie Leyva RN - 11/29/2010 1331 EDT Dose change. Message left for pt w/ instructions and requested to call back to report message received. documented in this encounter Plan of Treatment Upcoming Encounters Date Type Specialty Care Team Description 09/13/2022 Office Visit Cardiology Shelton Smith MD [address] [facility] [address] [place], [place] [address] (Wo rk) documented as of this encounter Procedures Procedure Name Priority Date/Time Associated Diagnosis Comme nts PROTIME Routine 11/29/2010 10:00 EDT Results for this procedure are i n the results section . documented in this encounter Results (ABNORMAL) PROTIME (11/29/2010 10:00 EDT) Pathologist Sig nature Protime, External [facility] INR, External 2.6 (A) [facility] Specimen Blood specimen (specimen) Performing Organization Address City/State/ZIP Code Phon e Number [facility] documented in this encounter Visit Diagnoses Diagnosis A-fib (HCC-CMS) (HCC) Atrial fibrillation documented in this encounter Care Teams Visualizer Relationship Specialty Start Date End Date Danish Cao, PCP - General 11/26/08 06/26/16 [address] [place] [address] documented as of this encounter
--- OUTSIDE RECORDS SUMMARY | 2022-02-07 01:34 | XMS_ITS | Encounter Summary ---
:1955 Author Organization [facility] Address [address] [place] [address] Care Team Providers Name Role Phone Danish Cao Russell DO Primary Care Provider Encounter Details Date Type Department Care Team Description 12/22/2010 Anti-coag visit [facility] Yehuda Manriquez MD Cardiology - [place] [address] [place] [address] (Wo rk) Social History Tobacco [...] encounter Progress Notes Omari Mckeon MD - 12/23/2010 1616 EDT Omari Mckeon MD Valerie matos, RN - 12/22/2010 1143 EDT Dose change. Message left for pt w/ instructions and requested to call back to report message received. documented in this encounter Plan of Treatment Upcoming Encounters Date Type Specialty Care Team Description 09/13/2022 Office Visit Cardiology Shelton Smith MD [address] [place] [address] [address] [place], [place] [address] (Wo rk) documented as of this encounter Procedures Procedure Name Priority Date/Time Associated Diagnosis Comme nts PROTIME Routine 12/22/2010 8:59 EDT Results for this procedure are i n the results section . documented in this encounter Results (ABNORMAL) PROTIME (12/22/2010 8:59 EDT) Pathologist Sig nature Protime, External [facility] INR, External 1.9 (A) [facility] Specimen Blood specimen (specimen) Performing Organization Address City/State/ZIP Code Phon e Number [facility] documented in this encounter Visit Diagnoses Not on filedocumented in this encounter Care Teams Outside Sales Manager Relationship Specialty Start Date End Date Danish Cao DO PCP - General 11/26/08 06/26/[address] [place] [address] documented as of this encounter
--- OUTSIDE RECORDS SUMMARY | 2022-02-07 01:34 | XMS_ITS | Encounter Summary ---
:1955 Author Organization [facility] Address [address] [place] [address] Care Team Providers Name Role Phone Danish Cao DO Primary Care Provider Encounter Details Date Type Department Care Team Description 05/24/2011 Anti-coag visit [facility] Yehuda Manriquez MD Cardiology - [place] [address] [place] [address] (Wo rk) Social History Tobacco [...] encounter Progress Notes Keaton Manriquez MD - 05/26/2011 1644 EDT Keaton Manriquez MD Gerald Sanchez - 05/24/2011 1336 EDT Pt referred to the [facility] w/ Afib. Plan is for ablation on 06/14. Pt is aware. intro letter faxed to Dr. Danish Cao. Ed packet with med-minder box mailed to pt. Protime [facility] to [facility]. documented in this encounter Plan of Treatment Upcoming Encounters Date Type Specialty Care Team Description 09/13/2022 Office Visit Cardiology Shelton Smith MD [address] [place] [address] [address] [place] [address] (Wo rk) documented as of this encounter Visit Diagnoses Not on filedocumented in this encounter Care Teams Whip Sawyer Relationship Specialty Start Date End Date Danish Cao, PCP - General 11/26/08 06/26/[address] [place] [address] documented as of this encounter
--- OUTSIDE RECORDS SUMMARY | 2022-02-07 01:34 | XMS_ITS | Encounter Summary ---
:1955 Author Organization [facility] Address [address] [place] [address] Care Team Providers Name Role Phone NashDanish bland Primary Care Provider Reason for Referral (Routine) - Closed Specialty Diagnoses / Procedures Referred By Contact Refer red To Contact Diagnoses A-fib (HCC-CMS) (HCC) Jamse Serra RN Procedures EKG 12-LEAD Referral ID Status Reason Start Date Expiration Date Visits Requ ested Visits Authorized [id number] Closed 06/29/2011 1 1 Reason for Visit Reason Onset Date Comments Other 06/29/2011 post ablation: troub ling symptoms Encounter Details Date Type Department Care Team Description 06/29/2011 Telephone [facility] Rex Hendricks, De[place] (post ablation: Cardiology - Sayra STILES troubling symptoms) [address] 111 [facility], [address] [place] [address] (Wo rk) Social History Tobacco [...] this encounter Miscellaneous Notes Telephone Encounter - Loyda Serra RN - 06/29/2011 1321 EST EKG results received from [facility] - pt is in NSR rate 81 bpm - pt was also told this by [facility]. Let pt know we would cont with current medical regime and instructed pt to call us back with any further symptoms or concerns. Advised pt okay to go back to work tomorrow and to just take it easy his first few days back at work. Pt has the understanding that post afib ablation it is not uncommon for pt's to experience episodes of afib in the immediate first few weeks following the procedure. Pt is s/p afib ablation on 06/14/11 and this is pt's 3rd ablation. elephone Encounter - Loyda Serra RN - 06/29/2011 1211 EST Advised pt not to go to work today and to go to [facility] in [facility] to get an EKG, that they will fax results to us and I will consult with MD pending results what the next step will be. elephone Encounter - Gerald Da Silva - 06/29/2011 1119 EST Pt calling to report that for the past couple of days he has been experiencing some troubling symptoms. When he takes a deep breath he gets a sharp pain in the lower left chest. His normal HR usually runs high 60s to low 70s. He is wearing a heart monitor right now, and his HR occasionally jumps up tothe 80s with very little excersion, and if he climbs stairs it jumps up to the 100s. 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 He usually leaves for work @ 1145 AM.Would like some guidance re: how he should proceed. His number is [phone]. He is waiting by thephone documented in this encounter Plan of Treatment Upcoming Encounters Date Type Specialty Care Team Description 09/13/2022 Office Visit Cardiology Shelton Smith MD [address] [place] [address] [address] [place], [place] [phone] (Wo rk) Scheduled Orders Name Type Priority Associated Diagnoses Order S chedule EKG 12-LEAD ECG Routine A-fib (CMS-HCC) Ordered: 01/2011 documented as of this encounter Visit Diagnoses Diagnosis A-fib (HCC-CMS) (HCC) - Primary Atrial fibrillation documented in this encounter Care Teams Aerial Crop Duster Relationship Specialty Start Date End Date Danish Cao DO PCP - General 11/26/08 06/26/[address] [place] [address] documented as of this encounter
--- OUTSIDE RECORDS SUMMARY | 2022-02-07 01:34 | XMS_ITS | Encounter Summary ---
:1955 Author Organization [facility] Address [address] [place] [address] Care Team Providers Name Role Phone Danish Cao Russell DO Primary Care Provider Encounter Details Date Type Department Care Team Description 08/03/2011 Anti-coag visit [facility] Yehuda Manriquez MD Cardiology - [place] [address] [place] [address] (Wo rk) Social History Tobacco [...] encounter Progress Notes Omari Mckeon MD - 08/09/2011 1620 EST Omari Mckeon MD Kimberly Valentin - 08/04/2011 1054 EST Patient reports that his INR was checked at [facility] yesterday while he was in the ER for CP. He was discharged with a diagnosis of pleurisy. He asks if difference in INR result could be due to being tested somewhere other than his normal lab. I told him that that could certainly be the case. Plan to continue normal coumadin dose and be tested tomorrow at [facility]. Pt verbalizes understanding of coumadin instructions and accurately repeated same back to me. All questions and concerns addressed. No barriers to learning or comprehension noted. Kimberly Valentin - 08/03/2011 1648 EST Left message on pt's home answering machine requesting he call back to discuss test results. documented in this encounter Plan of Treatment Upcoming Encounters Date Type Specialty Care Team Description 09/13/2022 Office Visit Cardiology Shelton Smith MD [address] [place] [address] [address] [place] [address] (Wo rk) documented as of this encounter Procedures Procedure Name Priority Date/Time Associated Diagnosis Comme nts PROTIME Routine 08/03/2011 15:01 EST Results for this procedure are i n the results section . documented in this encounter Results PROTIME (08/03/2011 15:01 EST) Pathologist Sig nature Protime, External [facility] INR, External 1.7 [facility] Specimen Blood specimen (specimen) Performing Organization Address City/State/ZIP Code Phon e Number [facility] documented in this encounter Visit Diagnoses Not on filedocumented in this encounter Care Teams Mat Inspector Relationship Specialty Start Date End Date Danish Cao DO PCP - General 11/26/08 06/26/[address] [place] [address] documented as of this encounter
--- OUTSIDE RECORDS SUMMARY | 2022-02-07 01:34 | XMS_ITS | Encounter Summary ---
:1955 Author Organization [facility] Address [address] [place] [address] Care Team Providers Name Role Phone NashDanish bland Russell [place] Primary Care Provider Reason for Visit Reason Onset Date Comments Other 09/01/2011 Encounter Details Date Type Department Care Team Description 09/01/2011 Telephone [facility] Cardiology - Kimberly Russell RN Other [address] [place] [address] Social History Tobacco Use Types Packs/Day [...] encounter Miscellaneous Notes Telephone Encounter - Kimberly Russell - 09/28/2011 1056 EST A user error has taken place: encounter opened in error, closed for administrative reasons. documented in this encounter Plan of Treatment Upcoming Encounters Date Type Specialty Care Team Description 09/13/2022 Office Visit Cardiology Shelton Smith MD [address] [place], [place] [address]A [facility] [address] [place], [place] [phone] (Wo rk) documented as of this encounter Visit Diagnoses Not on filedocumented in this encounter Care Teams Air Pollution Auditor Relationship Specialty Start Date End Date Danish Cao, PCP - General 11/26/08 06/26/[address] [place] [address] documented as of this encounter
--- OUTSIDE RECORDS SUMMARY | 2022-02-07 01:34 | XMS_ITS | Encounter Summary ---
:[address] [facility] Address [address] [place] [address] Care Team Providers Name Role Phone Danish Cao Russell DO Primary Care Provider Encounter Details Date Type Department Care Team Description 09/05/2011 Anti-coag visit [facility] Yehuda Manriquez MD Cardiology - [place] [address] [place] [address] (Wo rk) Social History Tobacco [...] encounter Progress Notes Omari Mckeon MD - 09/07/2011 9184 EST Omari Mckeon MD Valerie Swenson, RN - 09/05/2011 1359 EST No warfarin dose change. Left message for pt and advised pt to call back w/ questions and to confirm message received. documented in this encounter Plan of Treatment Upcoming Encounters Date Type Specialty Care Team Description 09/13/2022 Office Visit Cardiology Shelton Smith MD [address] [place] [address] [address] [place] [address] (Wo rk) documented as of this encounter Procedures Procedure Name Priority Date/Time Associated Diagnosis Comme nts PROTIME Routine 09/05/2011 11:18 EST Results for this procedure are i n the results section . documented in this encounter Results PROTIME (09/05/2011 11:18 EST) Pathologist Sig nature Protime, External [facility] INR, External 2.9 [facility] Specimen Blood specimen (specimen) Performing Organization Address City/State/ZIP Code Phon e Number [facility] documented in this encounter Visit Diagnoses Not on filedocumented in this encounter Care Teams Business Systems Architect Relationship Specialty Start Date End Date Danish Cao DO PCP - General 11/26/08 06/26/[address] [place] [address] documented as of this encounter
--- OUTSIDE RECORDS SUMMARY | 2022-02-07 01:34 | XMS_ITS | Encounter Summary ---
:1955 Author Organization [facility] Address [address] [place] [address] Care Team Providers Name Role Phone Danish Cao DO Primary Care Provider Encounter Details Date Type Department Care Team Description 09/15/2011 Anti-coag visit [facility] Yehuda Manriquez MD Cardiology - [place] [address] [place] [address] (Wo rk) Social History Tobacco [...] encounter Progress Notes Keaton Manriquez MD - 09/15/2011 1124 EST Keaton Manriquez MD Gerald Cunningham - 09/15/2011 0845 EST Pt's protime standing order at [facility] canceled. Yaa RN for Dr. Cao made aware of medication change. Pt [facility] Gerald Cunningham - 09/15/2011 0833 EST Called pt to remind him his Coumadin canbe D/C'd 3 months post-ablation per the plan of care set forth by Dr. Hendricks. Pt expressed full understanding and had stopped as planned. Pt does report that hestill is dealing with the occasional elevated HR, usually diring activity. His HR will go up to @ 100 bpm at times when it would not normally be that high, but it is not afib. Pt has discussed with who has assured him this symptom can continue for several months post-ablation. Pt just asked me to let Valerie know it is still happening--elevated HR but no afib. Pt reports he feels great. documented in this encounter Plan of Treatment Upcoming Encounters Date Type Specialty Care Team Description 09/13/2022 Office Visit Cardiology Shelton Smith MD [address] [place] [address] [address] [place] [address] (Wo rk) documented as of this encounter Visit Diagnoses Not on filedocumented in this encounter Care Teams Manager Surgery Relationship Specialty Start Date End Date Danish Cao DO PCP - General 11/26/08 06/26/[address] [place] [address] documented as of this encounter
--- OUTSIDE RECORDS SUMMARY | 2022-02-07 01:34 | XMS_ITS | Encounter Summary ---
:1955 Author Organization [facility] Address [address] [place] [address] Care Team Providers Name Role Phone Danish Cao Russell DO Primary Care Provider Encounter Details Date Type Department Care Team Description 12/29/2010 Anti-coag visit [facility] Yehuda Manriquez MD Cardiology - [place] [address] [place] [address] (Wo rk) Social History Tobacco [...] encounter Progress Notes Omari Mckeon MD - 01/05/2011 1252 EDT Omari Mckeon MD Omari Lambert MD - 12/29/2010 1159 EDT Omari Mckeon MD Valerie Leyva, RN - 12/29/2010 1121 EDT Dose change. Message left for pt w/ instructions and requested to call back to report message received. documented in this encounter Plan of Treatment Upcoming Encounters Date Type Specialty Care Team Description 09/13/2022 Office Visit Cardiology Shelton Smith MD [address] [place] [address] [address] [place] [address] (Wo rk) documented as of this encounter Procedures Procedure Name Priority Date/Time Associated Diagnosis Comme nts PROTIME Routine 12/29/2010 10:30 EDT Results for this procedure are i n the results section . documented in this encounter Results (ABNORMAL) PROTIME (12/29/2010 10:30 EDT) Pathologist Sig nature Protime, External [facility] INR, External 2.0 (A) [facility] Specimen Blood specimen (specimen) Performing Organization Address City/State/ZIP Code Phon e Number [facility] documented in this encounter Visit Diagnoses Not on filedocumented in this encounter Care Teams Manufacturing Production Technician Relationship Specialty Start Date End Date Danish Cao, PCP - General 11/26/08 06/26/[address] [place] [address] documented as of this encounter
--- OUTSIDE RECORDS SUMMARY | 2022-02-07 01:34 | XMS_ITS | Encounter Summary ---
:1955 Author Organization [facility] Address [address] [place] [address] Care Team Providers Name Role Phone Nash Danish Wells DO Primary Care Provider Reason for Visit Reason Comments Follow-up afib Medication Questions cardizem Encounter Details Date Type Department Care Team Description 05/28/2012 Office Visit [facility] Rex Hendricks ( [facility]) Cardiology - Sayra Akers MD (Primary Dx) [address], [facility] [address] [place] [address] (Wo rk) Social History Tobacco [...] Sign Reading Time Taken Comments Blood Pressure 132/70 05/28/2012 1333 EST Pulse 72 05/28/2012 1333 EST Temperature - - Respiratory Rate - - Oxygen Saturation 99% 05/28/2012 1333 EST Inhaled Oxygen Concentration - - Weight 70.8 kg (156 lb) 05/28/2012 1333 EST Height 177.8 cm (5' 10) 05/28/2012 1333 EST Body Mass Index 22.38 05/28/2012 1333 EST documented in this encounter Functional Status Cognitive Status Response Date of Assessment Because of a physical, mental, or emotional condition, do Ye s 06/14/2011 you have serious difficulty concentrating, remembering, or making decisions? (5 years old or older) documented as of this encounter Progress Notes Rex Hendricks MD - 05/28/2012 1404 EST Subjective: Patient ID: Braulio Garcia is an 56 y.o. male. Chief Complaint Patient presents with ??? Follow-up afib ??? Medication Questions cardizem HPI Braulio Garcia comes in for followup today. He has had an ablation for atrial fibrillation in the past and has had some nebulous symptoms since that time. He has excellent exercise tolerance and normally feels great. He has had days, however, when he feels like his exercise tolerance is less than what he would expect and contributes that to atrial fibrillation, although he does not specifically feel palpitations, and he has not been feeling his pulse and assessing for regularity versus irregularity. He does use a heart rate monitor, but his heart rates are not clearly associated with these symptoms,and he has not had significantly tachycardic episodes, but again, heart rate does not distinguish fib from sinus. Otherwise, he has been feeling well. He started taking Cardizem last time I saw him to see if it makes his resting heart rate a little bit slower and see if that would make him feel better, and it has had no effect and may be contributing to his fatigue with exercising, so we also discussed the possibility of stopping that. Patient Active Problem List Diagnoses (none) - [...] to Visit Medication Sig Dispense Refill ??? ASPIRIN (ASPIR-81 ORAL) Take 81 mg by mouth. ??? DILTiazem (CARDIZEM CD) 240 mg ER capsule Take 1 Cap by mouth daily. 30 Cap 5 ??? Multivitamins with Minerals Tab Take 1 [...] Only ROS - See HPI Objective: BP 132/70 Pulse 72 Ht 177.8 cm (70) Wt 70.761 kg (156 lb) BMI 22.38 kg/m2 SpO2 99% Physical Exam He is alert and oriented x3. Cranial nerves are grossly intact. Lungs are clear. He has a normal S1 and S2 without murmurs, rubs, or gallops. He has no clubbing, cyanosis, or edema, 2+ pulses in the extremities. Assessment: Yonis and I spent 20 minutes together, 15 of which was spent on counseling. It is not clear to me whether his symptoms are related to atrial fibrillation or not. It is clear, however, that his Cardizem is not helpful and therefore I recommend he stop it. We practiced feeling his heart rate and predicting the timing of the next beat, and he will try and pay attention to this and see if he can associate it with his symptoms in the future so we can determine whether he is or is not having atrial fibrillation. Either way, he has these episodes that are concerning to him relatively infrequently. Plan: There are no diagnoses linked to this encounter. Rex Hendricks MD documented in this encounter Plan of Treatment Upcoming Encounters Date Type Specialty Care Team Description 09/13/2022 Office Visit Cardiology Shelton Smith MD [address] [place] [address] [address] (Wo rk) documented as of this encounter Visit Diagnoses Diagnosis A-fib (HCC-CMS) (HCC) - Primary Atrial fibrillation documented in this encounter Care Teams Scalper Operator Relationship Specialty Start Date End Date Danish Cao DO PCP - General 11/26/08 06/26/[address] [place] [address] [place] [address] documented as of this encounter
--- OUTSIDE RECORDS SUMMARY | 2022-02-07 01:34 | XMS_ITS | Encounter Summary ---
:1955 Author Organization [facility] Address [address] [place] [address] Care Team Providers Name Role Phone Danish Cao Russell DO Primary Care Provider Encounter Details Date Type Department Care Team Description 06/20/2011 Anti-coag visit [facility] Yehuda Manriquez MD Cardiology - [place] [address] [place] [address] (Wo rk) Social History Tobacco [...] encounter Progress Notes Omari Mckeon MD - 06/21/2011 1641 EST Omari Mckeon MD Valerie Swenson, RN - 06/20/2011 1437 EST Dose change. Message left for pt w/ instructions and requested to call back to report message received. documented in this encounter Plan of Treatment Upcoming Encounters Date Type Specialty Care Team Description 09/13/2022 Office Visit Cardiology Shelton Smith MD [address] [place] [address] [address] [place] [address] (Wo rk) documented as of this encounter Procedures Procedure Name Priority Date/Time Associated Diagnosis Comme nts PROTIME Routine 06/20/2011 11:21 EST Results for this procedure are i n the results section . documented in this encounter Results PROTIME (06/20/2011 11:21 EST) Pathologist Sig nature Protime, External [facility] INR, External 3.[address] [facility] Specimen Blood specimen (specimen) Performing Organization Address City/State/ZIP Code Phon e Number [facility] documented in this encounter Visit Diagnoses Not on filedocumented in this encounter Care Teams Kiln Pusher Relationship Specialty Start Date End Date Danish Cao DO PCP - General 11/26/08 06/26/[address] [place] [address] documented as of this encounter
--- OUTSIDE RECORDS SUMMARY | 2022-02-07 01:34 | XMS_ITS | Encounter Summary ---
:1955 Author Organization [facility] Address [address] [place] [address] Care Team Providers Name Role Phone Danish Cao Russell DO Primary Care Provider Encounter Details Date Type Department Care Team Description 06/27/2011 Anti-coag visit [facility] Yehuda Manriquez MD Cardiology - [place] [address] [place] [address] (Wo rk) Social History Tobacco [...] as of this encounter Progress Notes Omari cMkeon MD - 06/29/2011 0852 EST Omari Mckeon MD Valerie Swenson RN - 06/27/2011 1500 EST Clinical Staff notified with Critical Results Provider Notified: Provider Name: Valerie Pitt RN Date: 06/27/11 Time: 10:51 AM Treatment Plan: 10% dose reduction, test in one week Patient Notified: yes Date: 06/27/11 Time: 1500 PM Gerald Cunningham - 06/27/2011 1041 EST Non Clinical Staff notified with Critical Results Ordering Provider: Keaton Manriquez MD Date and Time Test was Performed: 06/27/11. Drawn at 0850 AM. Resulted at 1038 AM. Results: 38.8/3.9. Result called to Gerald Da Silva by Tamara at [facility] at 1040 AM. Result Read Back and Verified: yes Nursing/Provider Notified: Nursing/Provider Name: Valerie Pitt RN Date: 06/27/11 Time: 1042 AM documented in this encounter Plan of Treatment Upcoming Encounters Date Type Specialty Care Team Description 09/13/2022 Office Visit Cardiology Shelton Smith MD [address] [place] [address] [address] (Wo rk) documented as of this encounter Procedures Procedure Name Priority Date/Time Associated Diagnosis Comme nts PROTIME Routine 06/27/2011 10:00 EST Results for this procedure are i n the results section . documented in this encounter Results PROTIME (06/27/2011 10:00 EST) Pathologist Sig nature Protime, External [facility] INR, External 3.9 [facility] Specimen Blood specimen (specimen) Performing Organization Address City/State/ZIP Code Phon e Number [facility] documented in this encounter Visit Diagnoses Not on filedocumented in this encounter Care Teams Sales And Marketing Vice President Relationship Specialty Start Date End Date Danish Cao DO PCP - General 11/26/08 06/26/[address] [facility] [address] [place] [address] documented as of this encounter
--- OUTSIDE RECORDS SUMMARY | 2022-02-07 01:34 | XMS_ITS | Encounter Summary ---
:1955 Author Organization [facility] Address [address] [place] [address] Care Team Providers Name Role Phone Danish Cao DO Primary Care Provider Reason for Visit Reason Onset Date Comments Follow-up 01/03/2012 update rec'd from pt post starting diltiazem Encounter Details Date Type Department Care Team Description 01/03/2012 Telephone [facility] Valerie Pitt RN Foll ow-up (update rec'd Cardiology - [place]ra from pt post starting [address] [place]) [place], [place] [address] Social History Tobacco Use [...] Telephone Encounter - Valerie Pitt RN - 01/03/2012 0824 EDT email update received from pt yesterday: Valerie, I am following up on my recent visit with Dr. Hendricks. He asked me to let you know how I was doing with the Cardizem. So for I have had no problems with side effects.I have noticed that my heart rate is still elevated during work [95 -105 bpm]. 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 It will increase withharder effort but does not spike to 120-130 bpm as it did before starting the Cardizem. I would say that it is working as my brake for now and I will continue to monitor it and keep you updated. Bill documented in this encounter Plan of Treatment Upcoming Encounters Date Type Specialty Care Team Description 09/13/2022 Office Visit Cardiology Shelton Smith MD [address] [place] [address] [address] [place] [phone] (Wo rk) documented as of this encounter Visit Diagnoses Not on filedocumented in this encounter Care Teams Geographic Analyst Relationship Specialty Start Date End Date Danish Cao, PCP - General 11/26/08 06/26/[address] [place] [address] documented as of this encounter
--- OUTSIDE RECORDS SUMMARY | 2022-02-07 01:34 | XMS_ITS | Encounter Summary ---
:1955 Author Organization [facility] Address [address] [place] [address] Care Team Providers Name Role Phone Danish Cao Russell DO Primary Care Provider Encounter Details Date Type Department Care Team Description 12/06/2010 Anti-coag visit [facility] Yehuda Manriquez MD Cardiology - [place] [address] [place] [address] (Wo rk) Social History Tobacco [...] documented as of this encounter Progress Notes Omair Mckeon MD - 12/07/2010 1558 EDT Omari Mckeon MD Valerie matos, RN - 12/06/2010 1505 EDT Dose change. Message left for pt w/ instructions and requested to call back to report message received. documented in this encounter Plan of Treatment Upcoming Encounters Date Type Specialty Care Team Description 09/13/2022 Office Visit Cardiology Shelton Smith MD [address] [place] [address] [address] [place] [address] (Wo rk) documented as of this encounter Procedures Procedure Name Priority Date/Time Associated Diagnosis Comme nts PROTIME Routine 12/06/2010 10:15 EDT Results for this procedure are i n the results section . documented in this encounter Results (ABNORMAL) PROTIME (12/06/2010 10:15 EDT) Pathologist Sig nature Protime, External [facility] INR, External 2.0 (A) [facility] Specimen Blood specimen (specimen) Performing Organization Address City/State/ZIP Code Phon e Number [facility] documented in this encounter Visit Diagnoses Not on filedocumented in this encounter Care Teams Rear Admiral Relationship Specialty Start Date End Date Danish Cao DO PCP - General 11/26/08 06/26/[address] [place] [address] documented as of this encounter
--- OUTSIDE RECORDS SUMMARY | 2022-02-07 01:34 | XMS_ITS | Encounter Summary ---
:1955 Author Organization [facility] Address [address] [place] [address] Care Team Providers Name Role Phone Danish Cao DO Primary Care Provider Encounter Details Date Type Department Care Team Description 02/02/2011 Anti-coag visit [facility] Valerie Pitt RN A -fib ([facility] Cardiology - [address] [place] [phone] Social History Tobacco Use Types Packs/Day [...] encounter Progress Notes Keaton Manriquez MD - 02/07/2011 1301 EDT Keaton Manriquez MD Valerie Leyva RN - 02/02/2011 1316 EDT No warfarin dose change. Left message for pt and advised pt to call back w/ questions and to confirmmessage received. documented in this encounter Plan of Treatment Upcoming Encounters Date Type Specialty Care Team Description 09/13/2022 Office Visit Cardiology Shelton Smith MD [address] [place] [address] [address] [place] [address] (Wo rk) documented as of this encounter Procedures Procedure Name Priority Date/Time Associated Diagnosis Comme nts PROTIME Routine 02/02/2011 11:05 EDT Results for this procedure are i n the results section . documented in this encounter Results (ABNORMAL) PROTIME (02/02/2011 11:05 EDT) Pathologist Sig nature Protime, External [facility] INR, External 2.1 (A) [facility] Specimen Blood specimen (specimen) Performing Organization Address City/State/ZIP Code Phon e Number [facility] documented in this encounter Visit Diagnoses Diagnosis A-fib (HCC-CMS) (HCC) Atrial fibrillation documented in this encounter Care Teams Furnace Hand Relationship Specialty Start Date End Date Danish Cao, PCP - General 11/26/08 06/26/16 [address] [place] [address] documented as of this encounter
--- OUTSIDE RECORDS SUMMARY | 2022-02-07 01:35 | XMS_ITS | Encounter Summary ---
:1955 Author Organization [facility] Address [address] [place] [address] Care Team Providers Name Role Phone Abhinav Cao DO Primary Care Provider Encounter Details Date Type Department Care Team Description 11/10/2010 - [facility] Medical RuthieRex 11/11/2010 Encounter Center MD Delphine hypercoagulable state Cardiac/Telemetry [address] [place] [address] ([facility] ) [address] [facility], [facility] Level [address] [place] [id number] [phone] Social History Tobacco Use Types Packs/Day Years [...] Sign Reading Time Taken Comments Blood Pressure 145/89 11/11/2010 0721 EDT Pulse 80 11/11/2010 07 EDT Temperature 36.3 ??C (97.3 ??F) 11/11/2010 0721 EDT Respiratory Rate 16 11/11/2010 0721 EDT Oxygen Saturation 98% 11/11/2010 07 EDT Inhaled Oxygen Concentration - - Weight 65.8 kg (145 lb) 11/10/2010 0656 EDT Height 177.8 cm (5' 10) 11/10/2010 0656 EDT Body Mass Index 20.81 11/10/2010 0656 EDT documented in this encounter Functional Status Cognitive Status Response Date of Assessment Because of a physical, mental, or emotional condition, do Ye s 11/10/2010 you have serious difficulty concentrating, remembering, or making decisions? (5 years old or older) documented as of this encounter Discharge Summaries Syed Robles MD - 11/10/20102032 EDT Discharge Summary Chief Complaint/Reason for Admission: LIghtheadedness, headaches Principal/Final Diagnosis: Paroxysmal atrial fibrillation Principal Procedure: Radiofrequency ablation Date: 11/10/2010 Secondary Procedures: Not applicable Condition at Discharge: Good or Stable Assessment at Discharge: Vital signs: Patient Vitals in the past 12 hrs: BP Temp Pulse Resp SpO2 11/11/10 0721 145/89 mmHg 36.3 ??C (97.3 ??F) 80 16 98 % 11/10/10 2300 144/92 mmHg 35.7 ??C (96.3 ??F) 81 16 98 % Telemetry - NSR - no a-fib , no dysrrthmias Cor- S1S2 RRR No murmur/rub/gallop Lungs- Farzad CTA Abd: +bs soft non-tender Right groin - soft, no bleed/hematoma Left groin - soft, no bleed/hematoma, soft <1in circular eccymosis medial incision site Ext: +peripheral pulses farzad, no edema Neuro : grossly normal, Alert & oriented X3, steady gait Hospital Course: Nohemy Rooney is a 54 year old male with a history of paroxsymal atrial fibrillation, s/p RF ablation 08/2008 with pulmonary encircling and isolation. He had not tolerated multiple antiarrhythmic agents in the past. He had been noted to be hypercoagulable during his previous ablation but a complete workup found no specific abnormality of coagulation and it was determined that a repeatablation procedure could be performed without prohibitive risk. 11-10-2010 He was admitted to the cardiac electrophysiology laboratory where radiofrequency ablation including redo of pulmonary encircling and isolation was performed under general anesthesia. The procedure was performed via the right & left femoral veins. Overnight: telemetry NSR - no atrial fib,no dysrrythmias . Ambulating - no chest pressure/pain/sob/smith/lightheadedness. Deny difficulty swallowing or chest burning. Deny right & left groin pain/discomfort or numbness. Reviewed INR with [facility] coumadin clinic- pt discharged on coumadin 5 mg each evening with next INR 11-05-10 and results to [facility] coumadin clinic for continued coumadin management. Pt and instructed in activity & bathing limitations post a-fib ablation and verbalized understanding. Medications prior to admission that will be resumed at discharge: Medication Sig Dispense Refill ??? warfarin (COUMADIN) 5 mg tablet Take 1 Tab by mouth daily. ??? Multivitamins with Minerals Tab Take 1 Tab by mouth daily. ??? ascorbic acid (VITAMIN C) 500 mg tablet Take 500 mg by mouth daily. No new medications prescribed at discharge. Atrial Fibrillation Ablation: The baseline rhythm was NSR. The ablation procedure was Pulmonary vein isolation Relevant Studies at Discharge: none Last Lab Results at Discharge: BUN: Lab Results Component Value Date BUN 23 11/10/2010 Creatinine: Lab Results Component Value Date CREATININE 0.84 11/10/2010 CBC: Lab Results Component Value Date WBC 5.71 11/10/2010 RBC 5.20 11/10/2010 HGB 16.0 11/10/2010 HCT 47.1 11/10/2010 MCV 91 11/10/2010 MCH 30.8 11/10/2010 MCHC 34.0 11/10/2010 PLT 303 11/10/2010 Electrolytes: Lab Results Component Value Date NA 142 11/10/2010 K 4.7 11/10/2010 CL 102 11/10/2010 CO2 31 11/10/2010 INR: Lab Results Component Value Date INR 2.9* 11/11/2010 INR 2.3* 11/10/2010 INR 2.5* 11/08/2010 PROTIME 33.2* 11/11/2010 PROTIME 26.5* 11/10/2010 PROTIME 36.4 10/08/2010 Lab Results Component Value Date HGBA1C 5.4 08/26/2010 cc: MD Rex CAI MD Discharge Summary Completed: 11-11-2010 I have seen and evaluated the patient. I have discussed the case and am in full agreement with the nurse practitioner's note above. documented in this encounter Discharge Instructions Nyla Enamorado NP - 11/11/2010 Discharge Instructions for A-fib Ablation Patients 1. [...] prior medications unless otherwise instructed 5. Appointments: Follow up with Deyanira Romero NP on November 25 at 1:20 If you have any questions or concerns, please don't hesitate to call the Cardiac Arrhythmia Service at [facility] at [phone] (or dial direct-[phone]) and leave a message for Valerie Pitt RN and she will return your call as soon as possible. Discharge Instructions for A-fib Ablation Patients 1. [...] Resume prior medications unless otherwise instructed ?? Your Coumadin will continued to be managed By [facility] Coumadin clinic Coumadin 5 mg each evening per with Lab test 11/15 5. Appointments: See Deyanira Romero NP with Rex Garcia MD on November 25, 2010 at 1:20 pm - cardiology clinic [address] Lab test INR on MonNovember 15 - results to [facility] coumadin clinic who will instruct you in further coumadin doses Your Coumadin will continued to be managed by [facility] Coumadin clinic If you have any questions or concerns, please don't hesitate to call the Cardiac Arrhythmia Service at [facility] at [phone] (or dial direct-[phone]) and leave a message for Valerie Pitt RN and she will return your call as soon as possible. documented in this encounter Medications at Time of Discharge Medication Sig Dispensed Refills Start Date End Date ascorbic acid (VITAMIN C) Take 500 mg by 0 500 mg tablet mouth daily. Multivitamins with Minerals Take 1 Tab by 0 Tab mouth daily. warfarin (COUMADIN) 5 mg Take 1 Tab by 30 Tab 3 10/26/19 11 11/23/2010 tabletIndications: Primary mouth daily. hypercoagulable state (HCC-CMS) (HCC) documented as of this encounter Discharge Disposition Disposition Code Departure Means Destination Home or Self Care documented in this encounter Progress Notes Atiya Yang - 11/10/2010 1321 EDT 1315 Report to CC RN Report to floor. CC RN ill transport chmindy Atiya - 11/10/2010 1304 EDT 1300 [place] D/CL wrist Pressure dsg applied Jackie gonzalez RN - 11/10/2010 0707 EDT Nohemy Rooney arrived to CVU via amb. Patient alert and oriented x3. Bed in lowest position with call tolentino within reach. Unit orientation and explanation of IV and procedure completed with patient. c pt. iIris nevarez RN - 11/01/2010 0906 EDT Nohemy Rooney has been instructed as follows regarding medication administration for the day of the scheduled procedure. Date of Surgery: 11/10/10--Instructions given by Cardiology Instructions for Taking Medications Day of Surgery Medication Last Dose Hold DOS Take DOS warfarin (COUMADIN) 5 mg tablet 10/25/10 Multivitamins with Minerals Tab ascorbic acid (VITAMIN C) 500 mg tablet documented in this encounter H&P Notes Rex Hendricks MD - 11/10/2010 0750 EDT Cardiology Admitting H&P Admit Date: 11/10/2010 Date of Service: 11/10/2010 PCP: ABHINAV CAO MD Chief Complaint: Lightheadedness and headaches, PAF, elective admission for AF ablation. HPI: 54 yo male with a history of paroxysmal atrial fibrillation s/p ablation in 2008 (PVE + PVI) presenting for repeat ablation. Patient has had paroxysmal atrial fibrillation for a few years. He is symptomatic with lightheadedness and headaches although he at times complained of these symptoms while in normal sinus rhythm. He underwent a first ablation in August of 2008 with Pulmonary vein encircling and isolation that was co mplicated by heavy clotting on the sheaths and catheters with no clinical evidence of emboli. He hadpreviously had an embolic event to a digit. His hypercoagulable state has been worked up with no specific abnormality of coagulation being found excpet for a relatively low protein S. He has tried and not tolerated multiple antiarrhythmics including Dofetilide in the recent past. After discussing the case with Dr. Jaffe and Declan it was felt his thromboembolic Risk was not prohibitive and decision was made to proceed with repeat ablation. PMH PSH Past Medical History Diagnosis Date ??? Cancer skin cancer on face and back ??? AF (atrial fibrillation) had ablation 2 yrs ago Past Surgical History Procedure Date ??? Tonsillectomy childhood ??? Nasal septum surgery 2006 ??? Ablation of dysrhythmic focus Social History Family History History Substance Use Topics ??? Smoking status: Not on file ??? Smokeless tobacco: Not on file ??? Alcohol Use: Yes rare Family History Problem Relation Age of Onset ??? High Cholesterol Mother ??? Heart Disease Father ??? Heart Disease Brother ??? Cancer Maternal Grandfather ??? Heart Disease Paternal Grandmother Medications Prescriptions prior to admission Medication Sig Dispense Refill ??? warfarin (COUMADIN) 5 mg tablet Take 1 Tab by mouth daily. 30 Tab 3 ??? Multivitamins with Minerals Tab Take 1 Tab by mouth daily. ??? ascorbic acid (VITAMIN C) 500 mg tablet Take 500 mg by mouth daily. Allergies Allergies Allergen Reactions ??? Atenolol ??? Flecainide Other (See Comments) Hallucinations ??? Other - See Comments Calcium Channel Blockers All fresh fruit--anaphylaxix ??? Amiodarone ??? Keflex (Cephalexin) Nausea Only Review of Systems: A ten point review of systems was performed. Pertinent positives are listed in the HPI. Objective/Physical Exam: VS: Patient Vital Signs in the past 8 hrs: BP Pulse Resp Temp SpO2 O2 Device 11/10/10 0500 132/99 mmHg 73 18 36.4 ??C (97.5 ??F) 100 % None (Room air) Pain: Patient Numeric Pain Scale in the past 8 hrs: Numeric Pain Level (Scale 1-10) 11/10/10 0656 0 Weight: Weight : 65.772 kg (145 lb) Body mass index is 20.81 kg/(m^2). Glucose Readings (last 8 hours): No results found for this basename: GLUCOSEFINGE:8 in the last 72 hours Exam: General appearance: alert, no distress Skin: no evidence of bleeding or bruising Head: Normocephalic, without obvious abnormality Lungs: clear to auscultation bilaterally Heart: regular rate and rhythm, S1, S2 normal, no murmur, click, rub or gallop Neurologic: Grossly normal Mental Status: awake and alert; oriented to person, place, and time Pressure Ulcer Present on admission? No Labs: I have personally reviewed CBC: Lab Results Component Value Date WBC 5.71 11/10/2010 RBC 5.20 11/10/2010 HGB 16.0 11/10/2010 HCT 47.1 11/10/2010 MCV 91 11/10/2010 MCH 30.8 11/10/2010 MCHC 34.0 11/10/2010 PLT 303 11/10/2010 BMP: Lab Results Component Value Date NA 142 11/10/2010 K 4.7 11/10/2010 CL 102 11/10/2010 CO2 31 11/10/2010 BUN 23 11/10/2010 CREATININE 0.84 11/10/2010 CALCIUM 9.3 08/26/2010 MG 2.3 08/26/2010 LABALBU 4.3 03/16/2009 Coagulation: Lab Results Component Value Date PROTIME 26.5* 11/10/2010 INR 2.3* 11/10/2010 PTT 46* 11/10/2010 eGFR calculation: GFR, Calculated Date Value Range Status 11/10/2010 >60 - (ml/min/1.73m2) Final Assessment: 54 yo male with symptomatic PAF intolerant of multiple antiarrhythmics presenting for repeat AF ablation. Plan : - Proceed with repeat ablation, on coumadin and heparin given hypercoagulable state - Check PVI, +/- Roof and mitral isthmus lines. XAVIER LOPEZ MD I have seen and examined the patient and agree with the above history and physical exam and assessment and plan. documented in this encounter Procedure Notes Xavier Lopez MD - 12/10/2010 1014 EDT Images from the original note were not included. Cardiac Arrhythmia Service Kalpesh Quijano M.D. Alvina Reynolds N.P. Calixto Bianchi M.D. Syed Robles M.D., Ph.D. JACQULEINE Arteaga M.D., Director Golden Perez M.D. EP Study and Ablation for Atrial Fibrillation NAME: NOHEMY ROONEY Oracle Application Consultant: Rex Hendricks MD : 1955 Procedure Date: 11/10/2010 Case No: [id number] Assistants: Xavier Lopez MD Referring Physician: Abhinav Cao DO Primary Care Physician: Abhinav Cao DO Indication: Atrial fibrillation. HPI: 54 yo male with a history of paroxysmal atrial fibrillation s/p ablation in 2008 (PVE + PVI) presenting for repeat ablation. Patient has had paroxysmal atrial fibrillation for a few years. He is symptomatic with lightheadedness and headaches although he at times complained of these symptoms while in normal sinus rhythm. He underwent a first ablation in August of 2008 with Pulmonary vein encircling and isolation that was complicated by heavy clotting on the sheaths and catheters with no clinical evidence of emboli. He had previously had an embolic event to a digit. His hypercoagulable state has been worked up with no specific abnormality of coagulation being found excpet for a relatively low protein S. He has tried and not tolerated multiple antiarrhythmics including Dofetilide in the recent past. After discussing the case with Dr. Jaffe and Declan it was felt his thromboembolic risk was not prohibitive and decision was made to proceed with repeat ablation. A pre-procedure FREEDOM was negative for left atrial thrombus. Anesthesia: General anesthesia. The patient was brought to the electrophysiology laboratory in the fasting state.After informed consent was obtained, the patient was prepped and draped in the usual sterile fashion. Access was obtained using a modified Seldinger technique.All catheters were placed under fluoroscopic guidance. Heparinbolus and infusion were begun to keep the ACT > 300 seconds. The Attending physician was present for the entire procedure. Catheters: CS: #7 Fr deflactable decapolar electrode (2mm-5mm-2mm spacing) RAA: #6 Fr hexapolar electrode catheter(2 mm spacing; proximal ring 25 cm from tip) Acuson intracardiac ultrasound catheter #8 Fr 3.5 mm.-tip Thermocool Navistar:#8 Fr deflectable quadrapolar electrode (2 mm-5mm-2mm) Lasso: #7 Fr deflectable circumferencial catheter (20, 1mm electrodes) Pacing and recording were carried out from the right atrium, the left atrium, the right ventricle, the coronary sinus, and His bundle. EP Study: A comprehensive EP study with attempted arrhythmia induction was performed. Baseline Rhythm: Sinus Rhythm Cycle length:750 ms AH interval:43 ms HV interval:55 ms At baseline, the patient was in sinus rhythm without evidence of pre- excitation.\ Pacing from the right atrial appendage demonstrated 1:1 antegrade conduction over the AV node fast pathway to 370Pacingfrom the right ventricle demonstrated retrograde conduction over the AV node to 340 ms. Ablation and Mapping Procedure: Double Transseptal Procedure: A transseptal procedure was performed under fluoroscopic, pressure, and ICE guidance. An SL#1 sheathand dilator were placed in the SVC over an 0.32 wire. A BRK1 needle was the positioned 2mm proximal to the tip of the dilator and flushed. The needle/sheath/dilator were then positioned in the fossa ovalis under fluoroscopic and pressure guidance. The needle was advanced into the left atrium. The dilator was advanced over the needle and the sheath advanced over the wire. The needle and dilator were then removed and the sheath was flushed.A second sheath was placed in the left atrium using the same technique as the first sheath. Right atrial Systolic Pressure (mmHg): 5 Right atrial Diastolic Pressure (mmHg): 1 Right atrial mean Pressure (mmHg): 2 Left atrial Systolic Pressure (mmHg): 13 Left atrial Diastolic Pressure (mmHg): 5 Left atrial mean Pressure (mmHg): 7 3D Electro-anatomical Carto Mapping: Using the Thermocool catheter, the Lasso catheter and Fast Anatomical Mapping, a Carto shell of the left atrium and pulmonary veins was made.This shell was used to guide the procedure. Pulmonary vein venograms were performed. Pulmonary Vein Encircling/Isolation: The left and right sided pulmonary veins (PVs) were revisited and isolated with lasso guidance.RF was delivered at 30W max (25 W max when ablating the posterior left atrium or near the ostia of the veins) and esophageal temperature was monitored throughout. All pulmonary veins were re-isolated. At this point the patient was in sinus rhythm and all PVs were isolated. The procedure was thereforeconcluded. Catheters were withdrawn, protamine was given, and the sheaths were pulled.Hemostasis was achieved with manual compression.No complications were noted.Total fluoroscopy time: 33 minutes.Contrast: 30 mL.Blood loss <75 mL.I/O 2800/800 ml. Summary of Procedure: 1.\\Re-isolation of the pulmonary veins. 2.\\At the conclusion of the procedure the patient was in sinus rhythm. 3.\\No complications. The patient was enrolled in the long-term follow up study. I was present for the mejia and critical portions of the procedure. Electronically Signed by Rex Hendricks MD 12/10/2010 10:14 Xavier Lopez MD Electrophysiology Fellow Rex Hendricks MD Attending Physician D: - Xavier Lopez MD A - KSW Job ID: Document ID: [id number] cc: Abhinav Cao DO pectorRex MD - 11/10/2010 1215 EDT Electrophysiology Laboratory Preliminary Report -- Invasive Electrophysiology Procedure Date of Service/Procedure: 11/10/2010 Attending Physician: Rex Hendricks MD Fellow: Xavier Lopez MD Pre-Procedure Diagnosis/Indication: Nohemy Rooney is a 54 y.o. year old male with atrial fibrillation. Anesthesia: General anesthesia was used.. Access: Right femoral vein 2 x 8.5 fr Left femoral vein 1 x 8.5 fr and 2 x 7.0 fr Procedure: He was brought to the [facility] Electrophysiology Laboratory on [address] for -- Atrial fibrillation ablation Atrial Fibrillation Ablation: The baseline rhythm was NSR. The ablation procedure was Pulmonary vein isolation. Fluid intake was 2800 mL. Fluid output was 800 mL. IV contrast total was 30 mL. Furosemide was not given. Patient had very low CVP. Post-Procedure Condition: The condition of the patient was Good. Complications: None. Estimated Blood Loss: Minimal. Unless otherwise noted, there were no specimens removed, cultures obtained, or drains retained. Clinical Trial: The patient is not enrolled in a clinical trial. Summary of Procedure: Femoral vein access x 5 Transseptal x2 PV isoltaion Manual pressure for hemostasis Full report to follow. Post-Procedure Diagnosis: atrial fibrillation Plan: see post-procedure orders. Physician Order for Admission: On the basis of clinical presentation, co- morbidities, and proceduraloutcome/complications, this patient requires an inpatient admission. Indications are: Complex anticoagulation needs requiring admission prior to the procedure for managment of the issue of Atrial fibril lation.. Reference: Hospitalization Criteria for Pacemaker and ICD Placement and EP/Ablation; Heart Rhythm Society; Revised December, XAVIER LOPEZ MD 11/10/2010 12:16 I was present for the mejia and critical portions of the procedure. npatient, MD Doc - 11/10/2010 0000 EDTAssociated Order(s): ECG REPORT - SCANNED; ECG REPORT - SCANNED Inpatient, MD Doc - 11/10/2010 0000 EDTAssociated Order(s): ECG REPORT - SCANNED; ECG REPORT - SCANNED Physician Alford MD - 11/10/2010 0000 EDTAssociated Order(s): ECG REPORT - SCANNED; ECG REPORT - SCANNED Physician Alford MD - 11/10/2010 0000 EDTAssociated Order(s): CARDIAC CATHERIZATION REPORT - SCANNED; CARDIAC CATHERIZATION REPORT - SCANNED documented in this encounter OR Notes Anesthesia Procedure Notes - Physician Alford MD - 11/10/2010 0000 EDT Anesthesia Preprocedure Evaluation - Physician Alford MD - 11/10/2010 0000 EDT R PreOp - Physician Alford MD - 11/10/2010 0000 EDT documented in this encounter Miscellaneous Notes Plan of Cary Lanza - 11/11/2010 1139 EDT Problem: DISCHARGE PLANNING Goal: Patient's Continuum Of Care Needs Are Met 1136 D: Patient to be discharged per MD. A: IV removed, catheter tip intact. Telemetry removed. RN reviewed discharge instructions with patient and family. Patient received medication sheets and discharge instructions. R: Patient expressed good understanding of discharge instructions. They have no questions at this time. Patient dressed independently. They left via wheelchair with . lan of Cary Lanza - 11/11/2010 1008 EDT Problem: CIRCULATORY STATUS Goal: Patient Has Stable Vital Signs And Fluid Balance 1006 D: pt a/ox3, denies sob or pain, in NSR in the 70's, PPP and bilat groin sites are CDI, no edema a noted, lungs clear, pt on RA, VSS. Pt independent with all ADL's A: Assessment complete, meds given as ordered, educated pt about coumadin and Vit K R: will CTM lan of Joyce Puente RN - 11/10/2010 2331 EDT Problem: DISCHARGE PLANNING Goal: Patient's Continuum Of Care Needs Are Met Active Multi-Disciplinary problems: HOSPITAL ORIENTATION/SAFETY [898953] (4/20/11) PAIN [[id number]] (11/10/10) DISCHARGE PLANNING [004209] (11/10/10) CIRCULATORY STATUS [[id number]] (11/10/10) Data: Pt is post ablation from today. No c/o pain or SOB. Right and left groins with tegaderm dressings, no ecchymosis,no hematoma noted. Left groin with small amt old drainage. Pt ambulating in hallway WOD>200 ft. Pt remains in SR until present. Action: Discharge teaching reviewed with pt and , good understanding and acceptance verbalized. Response: Cont to monitor. Joyce Apraicio RN 11/10/2010 23:26 lan of Care - Cary Morales - 11/10/2010 1528 EDT Problem: CIRCULATORY STATUS Goal: Patient Has Stable Vital Signs And Fluid Balance 1258 D: Patient arrived to [place] [address]. Pt admitted for Afib ablation. Vital signs noted. Tele applied.Patient NRS with HR in 70s. Patient denies chest pain, SOB, and discomfort. Patient denies complaints at this time. Patient oriented to room, equipment, and careplan. A: Assessment as documented in flowsheet. Admission database complete. R: RN will continue to monitor and document per protocol. nesthesia Post-Eval - Pavan De La Vega - 11/10/2010 1305 EDT Post Anesthesia Evaluation Note Date of Service: 11/10/2010 Nohemy Rooney, a 54 y.o. year old male has received General Anesthesia He has been evaluated, assessed and discharged from anesthesia care with stable cardiorespiratory function and alert mental status. The last set of recorded vital signs and pain rating were reviewed: BP 126/89 Pulse 69 Temp 36 ??C (96.8 ??F) Resp 12 Ht 177.8 cm (70) Wt 65.772 kg (145 lb) BMI 20.81 kg/m2 SpO2 100%,Numeric Pain Level (Scale 1- 10): 0 Nohemy Rooney participated in this evaluation unless otherwise noted. His pain, nausea and vomiting have been managed and his body temperature and fluid balance have been restored. Additional monitoring and assessment needs have been addressed. If present, any postoperative events are documented below. If the regional block for postoperative analgesia was intended to last greater than 48 hours, Nohemy Rooney will be followed by the Acute Pain Service. PAVAN DE LA VEGA MD 11/10/2010 13:05 canned Note-Null - Inpatient, MD Doc - 11/10/2010 0000 EDT canned Note-Null - Inpatient, MD Doc - 11/10/2010 0000 EDT documented in this encounter Plan of Treatment Upcoming Encounters Date Type Specialty Care Team Description 09/13/2022 Office Visit Cardiology Shelton Smith MD [address] [place] [address] [address] [place] [address] (Wo rk) documented as of this encounter Procedures Procedure Name Priority Date/Time Associated Comments Diagnosis ECG REPORT - SCANNED 11/17/2010 2:34 Resu lts for this EDT procedure are i n the results section. ECG REPORT - SCANNED 11/15/2010 20:51 Res ults for this EDT procedure are i n the results section. ECG REPORT - SCANNED 11/15/2010 20:18 Res ults for this EDT procedure are i n the results section. INVASIVE CARDIOLOGY 11/15/2010 20:18 Resu lts for this REPORT-SCANNED EDT procedure are in the results section. PROTIME Routine 11/11/2010 6:09 Results for this EDT procedure are i n the results section. EKG 12-LEAD Routine 11/10/2010 12:28 EDT ACT, CELITE ISTAT Routine 11/10/2010 11:37 Result s for this EDT procedure are i n the results section. ACT, CELITE ISTAT Routine 11/10/2010 11:01 Result s for this EDT procedure are i n the results section. ACT, CELITE ISTAT Routine 11/10/2010 10:20 Result s for this EDT procedure are i n the results section. ACT, CELITE ISTAT Routine 11/10/2010 9:48 Results for this EDT procedure are i n the results section. ACT, CELITE ISTAT Routine 11/10/2010 9:20 Results for this EDT procedure are i n the results section. ACT, CELITE ISTAT Routine 11/10/2010 8:42 Results for this EDT procedure are i n the results section. PTT STAT 11/10/2010 6:50 Results for this EDT procedure are i n the results section. PROTIME STAT 11/10/2010 6:50 Results for this EDT procedure are i n the results section. COMPLETE BLOOD COUNT STAT 11/10/2010 6:50 Resu lts for this EDT procedure are i n the results section. BUN STAT 11/10/2010 6:50 Results for this EDT procedure are i n the results section. CREATININE STAT 11/10/2010 6:50 Results for this EDT procedure are i n the results section. ELECTROLYTES STAT 11/10/2010 6:50 Results for this EDT procedure are i n the results section. TYPE AND SCREEN Routine 11/10/2010 6:00 Results f or this EDT procedure are i n the results section. documented in this encounter Results ECG REPORT - SCANNED (11/17/2010 2:34 EDT) Specimen Narrative This result has an attachment that is no t available. Procedure Note InpatientPhysician MD - 11/10/2010 0: 00 EDT ECG REPORT - SCANNED (11/15/2010 20:51 EDT) Specimen Narrative This result has an attachment that is no t available. Procedure Note Physician Alford MD - 11/10/2010 0: 00 EDT ECG REPORT - SCANNED (11/15/2010 20:18 EDT) Specimen Narrative This result has an attachment that is no t available. Procedure Note Physician Alford MD - 11/10/2010 0: 00 EDT CARDIAC CATHERIZATION REPORT - SCANNED (11/15/2010 20:18 EDT) Specimen Narrative This result has an attachment that is no t available. Procedure Note Physician Alford MD - 11/10/2010 0: 00 EDT (ABNORMAL) PROTIME (11/11/2010 6:09 EDT) Pro Time 33.2 (H) 9.5 - 12.9 [facility] secs I.N.R. 2.9 (H) 0.9 - 1.1 [facility] Comment: Ratio ??Moderate Intensity Coumadin INR = 2.0-3.0 Adjustmen ts in anticoagulant therapy dose should be based upon the INR and NOT the Pro Time. ?? Specimen Blood specimen (specimen) Performing Organization Address [facility] Phon e Number [facility] [address] [place] [address] SERVICES [facility] [address] [place] [address] ACT, CELITE ISTAT (11/10/2010 11:37 EDT) Activated Clotting 322 [facility] Time Tech ID [id number] [facility] Test performed by Cardiology . Baseline ref range = 84 to 139 seconds For non baseline ref ranges see procedure. Specimen Performing Organization Address [facility] Phon e Number [facility] [address] [place] [address] SERVICES [facility] [address] [place] [address] ACT, CELITE ISTAT (11/10/2010 11:01 EDT) Activated Clotting 313 [facility] Time Tech ID [id number] [facility] Test performed by Cardiology . Baseline ref range = 84 to 139 seconds For non baseline ref ranges see procedure. Specimen Performing Organization Address [facility] Phon e Number [facility] [address] [place] [address] SERVICES [facility] [address] [place] [address] ACT, CELITE ISTAT (11/10/2010 10:20 EDT) Activated Clotting 335 [facility] Time Tech ID [id number] [facility] Test performed by Cardiology . Baseline ref range = 84 to 139 seconds For non baseline ref ranges see procedure. Specimen Performing Organization Address [facility] Phon e Number [facility] [address] [place] [address] SERVICES [facility] [address] [place] [address] ACT, CELITE ISTAT (11/10/2010 9:48 EDT) Activated Clotting 344 [facility] Time Tech ID [id number] [facility] Test performed by Cardiology . Baseline ref range = 84 to 139 seconds For non baseline ref ranges see procedure. Specimen Performing Organization Address [facility] Phon e Number [facility] [address] [place] [address] SERVICES [facility] [address] [place] [address] ACT, CELITE ISTAT (11/10/2010 9:20 EDT) Activated Clotting 357 [facility] Time Tech ID [id number] [facility] Test performed by Cardiology . Baseline ref range = 84 to 139 seconds For non baseline ref ranges see procedure. Specimen Performing Organization Address [facility] Phon e Number [facility] [address] [place] [address] SERVICES [facility] [address] [place] [address] ACT, CELITE ISTAT (11/10/2010 8:42 EDT) Activated Clotting 208 [facility] Time Tech ID [id number] [facility] Test performed by Cardiology . Baseline ref range = 84 to 139 seconds For non baseline ref ranges see procedure. Specimen Performing Organization Address [facility] Phon e Number [facility] [address] [place] [address] SERVICES [facility] [address] [place] [address] HEMAGRAM (11/10/2010 6:50 EDT) Pathologist Sig nature WBC 5.71 4.0 - 10.4 K/cmm [facility] RBC 5.20 4.36 - 5.78 M/cmm [facility] Hemoglobin 16.0 13.8 - 17.3 gm/dl [facility] HCT 47.1 39.5 - 50.2 % [facility] MCV 91 81 - 95 fl [facility] MCH 30.8 27.6 - 33.0 pg [facility] MCHC 34.0 32.8 - 36.4 gm/dl [facility] PLT 303 141 - 320 K/cmm [facility] RDW-CV 13.2 11.8 - 14.1 % [facility] Specimen Blood specimen (specimen) Performing Organization Address [facility]/ZIP Code Phon e Number [facility] [address] [place] [address] SERVICES [facility] [address] [place] [address] (ABNORMAL) PTT (11/10/2010 6:50 EDT) Pathologist Sig nature PTT 46 (H)Comment: 24 - 35 secs [facility] Therapeutic Heparin range: 60-90 seconds Specimen Blood specimen (specimen) Performing Organization Address [facility]/ZIP [facility] Phon e Number [facility] [address] [place] [address] SERVICES [facility] [address] [place] [address] (ABNORMAL) PROTIME (11/10/2010 6:50 EDT) Pro Time 26.5 (H) 9.5 - 12.9 [facility] secs I.N.R. 2.3 (H) 0.9 - 1.1 [facility] Comment: Ratio ??Moderate Intensity Coumadin INR = 2.0-3.0 Adjustmen ts in anticoagulant therapy dose should be based upon the INR and NOT the Pro Time. ?? Specimen Blood specimen (specimen) Performing Organization Address [facility]/ZIP [facility] Phon e Number [facility] [address] [place] [address] SERVICES [facility] [address] [place] [address] CREATININE (11/10/2010 6:50 EDT) Pathologist Sig nature Creatinine 0.84 0.7 - 1.5 mg/dl [facility] GFR, Calculated >60 ml/min/1.73m2 [facility] Specimen Blood specimen (specimen) Performing Organization Address City/State/ZIP Code Phon e Number [facility] [address] [place] [address] SERVICES [facility] [address] [place] [address] BUN (11/10/2010 6:50 EDT) Pathologist Sig nature BUN 23 10 - 26 mg/dl [facility] Specimen Blood specimen (specimen) Performing Organization Address [facility]/ZIP [facility] Phon e Number [facility] [address] [place] [address] SERVICES [facility] [address] [place] [address] ELECTROLYTES (11/10/2010 6:50 EDT) Pathologist Sig nature Sodium 142 136 - 145 mEq/L [facility] Potassium 4.7 3.5 - 5.0 mEq/L [facility] Chloride 102 96 - 110 mEq/L [facility] CO2 31 24 - 32 mEq/L [facility] Specimen Blood specimen (specimen) Performing Organization Address [facility] Phon e Number [facility] [address] [place] [address] SERVICES [facility] [address] [place] [address] TYPE AND SCREEN (11/10/2010 6:00 EDT) Pathologist Sig nature ABO O [facility] Rh Factor Positive [facility] Antibody Screen NegativeComment: [facility] SPECIMEN EXPIRES ON 11/13/10 AT 23:59 Specimen Blood specimen (specimen) Performing Organization Address [facility] Phon e Number [facility] [address] [place] [phone] SERVICES [facility] [address] [place] [address] documented in this encounter Visit Diagnoses Diagnosis Primary hypercoagulable state (HCC-CMS) (HCC) Primary hypercoagulable state documented in this encounter Administered Medications Inactive Administered Medications - up to 3 most recent administrations Medication Order MAR Action Action Date Dose Rate Site ascorbic acid (VITAMIN C) tablet 500 Given 11/11/2010 9:19 EDT 5 00 mg mg 500 mg, oral, DAILY, First dose on Mon11/10/10 at 1445, Until Discontinued, Routine Given 11/10/2010 16:38 EDT 500 mg ketorolac (TORADOL) injection 15 mg Given 11/10/2010 19:52 EDT 15 mg 15 mg, intravenous, EVERY 6 HOURS, 20 doses, First dose on Mon11/10/10 at 1245, Last dose on Mon11/15/10 at 0645, Routine, Postprocedure Given 11/10/2010 12:53 EDT 15 mg Multivitamins with Minerals tablet 1 Tab Given 11/11/2010 9:19 EDT 1 Tablet 1 Tablet, oral, DAILY, First dose on Mon11/10/10 at 1445, Until Discontinued, Routine Given 11/10/2010 16:38 EDT 1 Tablet sodium chloride 0.9 % (NS) infusion New Bag 11/10/2010 6:57 EDT 30 mL/hr 30 mL/hr at 30 mL/hr, 30 mL/hr, intravenous, CONTINUOUS, Starting on Mon11/10/10 at 0700, Until Mon11/10/10 at 1420, Routine, Preprocedure warfarin (COUMADIN) tablet 5 mg Given 11/10/2010 22:02 EDT 5 mg 5 mg, oral, AT BEDTIME, First dose on Mon11/10/10 at 2100, Until Discontinued, Indications: atrial fibrillation, Is this a new start or continuation of therapy? Continuation, Routine documented in this encounter Discontinued Medications Medication Sig Discontinue Reason Start Date End Date fondaparinux (ARIXTRA) 5 Inject 0.4 mL into Therapy completed 09/2111/01/2010 mg/0.4 mL the skin daily. injectionIndications: A-fib ([facility] ([facility]) documented as of this encounter Active and Recently Administered Medications Times are shown in EDT. Scheduled Medication Order 11/09/2010 11/10/2010 11/11/2010 ascorbic acid (VITAMIN C) tablet 500 mg (CANCELED) 1530 (Hold - Provider: Cary Morales - Reason: Other - Comment: Hold until pt eats)1638 (Given - Provider: Cary Morales) 0919 (Given - Provider: Cary Morales) 500 mg, Oral, DAILY, First dose on Mon11/10/10 at 1445, Until Di scontinued ketorolac (TORADOL) injection 15 mg (CANCELED) 1253 (Given - Provider: Atiya Yang)1952 (Given - Provider: Joyce Aparicio RN) 0302 (Not Given - Provider: Joyce Aparicio RN - Reason: Patient/family refused)0627 (Not Given - Provider: Joyce Aparicio RN - Reason: Patient/family refused) 15 mg, Intravenous, EVERY 6 HOURS, 20 do ses, First dose on Mon11/10/10 at 1245, Last dose on Mon11/15/10 at 0645 Multivitamins with Minerals tablet 1 Tab (CANCELED) 1531 (Hold - Provider: Cary Morales - Reason: Other - Comment: hold until pt eats food)1638 (Given - Provider: Cary Morales) 0919 (Given - Provider: Cary Morales) 1 Tab, Oral, DAILY, First dose on Mon11/10/10 at 1445, Until Dis continued warfarin (COUMADIN) tablet 5 mg (CANCELED) 2201 (Given - Provider: Joyce Aparicio, ROBBY) 5 mg, Oral, AT BEDTIME, First dose on Mon11/10/10 at 2100, Until Discontinued Continuous Medication Order 11/09/2010 11/10/2010 11/11/2010 sodium chloride 0.9 % (NS) infusion (CANCELED) 0657 (New Bag - Provider: Jackie Sapp RN) at 30 mL/hr, Intravenous, CONTINUOUS, St arting Mon11/10/10 at 0700, Until Mon11/10/10 at 1420 documented in this encounter Orders Medications Ordered That Might Not Have Count Last Ord ered Date First Ordered Date Been Administered warfarin education book 1 Each 11/11/2010 atropine 0.1 mg/mL 10 mL syringe 0.5 mg 1 11/11/19 11 fentanyl citrate (PF) 50 mcg/mL injection 1 2010 100 mcg heparin 1,000 unit/mL injection 1 11/10/2010 heparin in 1/2 NS 25,000 unit/250 mL 1 11/10/2010 infusion hydrocodone-acetaminophen (LORTAB;VICODIN) 1 11/10 5-500 mg per tablet 1-2 Tab HYDROmorphone (DILAUDID) tablet 2 mg 1 11/10/2010 ketorolac (TORADOL) 30 mg/mL (1 mL) 2 11/10/2010 injection lactated ringers (LR) infusion 1 11/10/2010 lidocaine 10 mg/mL (1 %) injection 1 11/10/2010 naloxone (NARCAN) injection 0.2 mg 1 11/10/2010 ondansetron (PF) (ZOFRAN) injection 2 mg 1 011 oxycodone-acetaminophen (PERCOCET) 5-325 1 011 mg per tablet 1-2 Tab protamine 10 mg/mL injection 1 11/10/2010 EKG Orders Without Results Count Last Ordered Date Fir st Ordered Date EKG 12-LEAD 1 11/10/2010 Admission Count Last Ordered Date First Ordered Date NOTIFY PPS OF DISCHARGE COMPLETE 11/11/2010 ADMIT TO OUTPATIENT 1 11/10/2010 NOTIFY PPS PATIENT ARRIVAL IN PACU 1 11/10/2010 NOTIFY PPS PATIENT TRANSFERRED OUT OF PACU 2 11/10 Discharge Count Last Ordered Date First Ordered Date DISCHARGE PATIENT 1 11/11/2010 documented in this encounter Care Teams Flat Polisher Relationship Specialty Start Date End Date Abhinav Cao DO PCP - General 11/26/08 06/26/[address] [place] [address] documented as of this encounter
--- OUTSIDE RECORDS SUMMARY | 2022-02-07 01:35 | XMS_ITS | Encounter Summary ---
:1955 Author Organization [facility] Address [address] [place] [address] Care Team Providers Name Role Phone Danish Cao DO Primary Care Provider Encounter Details Date Type Department Care Team Description 02/06/2009 Hospital Encounter [facility] [address] [place], [place] [id number] [place] [address] [address] [place] [phone] (Wo rk) Social History Tobacco Use Types Packs/Day Years Used Date Never Assessed Sex Assigned at Date Recorded Not on file documented as of this encounter Discharge Disposition Disposition Code Departure Means Destination Home or Self Care documented in this encounter Plan of Treatment Upcoming Encounters Date Type Specialty Care Team Description 09/13/2022 Office Visit Cardiology Shelton Smith MD [address] [place] [address] [address] [place], [place] [phone] (Wo rk) documented as of this encounter Visit Diagnoses Not on filedocumented in this encounter Care Teams Firer Boiler Relationship Specialty Start Date End Date Danish Cao DO PCP - General 11/26/08 06/26/[address] [place], [place] [id number] documented as of this encounter
--- OUTSIDE RECORDS SUMMARY | 2022-02-07 01:35 | XMS_ITS | Encounter Summary ---
:1955 Author Organization [facility] Address [address] [place] [address] Care Team Providers Name Role Phone Danish Cao DO Primary Care Provider Encounter Details Date Type Department Care Team Description 06/04/2009 Office Visit [facility] Joshua Hendricks MD Cardiology - [facility] [address] [address] [place] [phone] (Wo rk) Social History Tobacco Use Types Packs/Day Years Used Date Never Assessed Sex Assigned at Date Recorded Not on file documented as of this encounter Procedure Notes Rex Hendricks MD - 06/08/2009 1344 EST Cardiac Arrhythmia Service MD Kalpesh Lima MD Daniel Lustgarten, MD, PhD MD Alvina Fry NP Event Monitor Summary Report NAME: BRAULIO GARCIA : 1955 Procedure Date: 06/04/2009 Referring Physician: Manny Moore MD Primary Care Physician: DO KRISTYN Hu #: [id number] DATES OF MONITORIN05-01-09 to 06-01-09 DIAGNOSIS: PACs and PVCs PHYSICIAN INTERPRETATION Baseline showed sinus rhythm. ???Headache and SOB?? do not correlate with rhythm changes. Electronically Signed by Rex Hendricks MD 06/08/2009 13:44 Rex Hendricks MD Attending Physician D: - Rex Hendricks MD A - WM Job ID: Document ID: [id number] cc: DO Manny Hu MD documented in this encounter Plan of Treatment Upcoming Encounters Date Type Specialty Care Team Description 09/13/2022 Office Visit Cardiology Shelton Smith MD [address] [place] [address] [address] (Wo rk) documented as of this encounter Visit Diagnoses Not on filedocumented in this encounter Care Teams Cognos Analyst Relationship Specialty Start Date End Date Danish Cao DO PCP - General 11/26/08 06/26/[address] [facility] [address] [place], [place] [address] documented as of this encounter
--- OUTSIDE RECORDS SUMMARY | 2022-02-07 01:35 | XMS_ITS | Encounter Summary ---
:1955 Author Organization [facility] Address [address] [place] [address] Care Team Providers Name Role Phone NashDanish bland Primary Care Provider Encounter Details Date Type Department Care Team Description 11/04/[address] [facility] Yehuda Manriquez MD Cardiology - [place] [address] [place] [address] (Wo rk) Social History Tobacco Use Types Packs/Day Years Used Date Never Assessed Sex Assigned at Date Recorded Not on file documented as of this encounter Functional Status Cognitive Status Response Date of Assessment Because of a physical, mental, or emotional condition, do Ye s 08/26/2010 you have serious difficulty concentrating, remembering, or making decisions? (5 years old or older) documented as of this encounter Progress Notes Omari Mckeon MD - 11/04/2010 1605 EDT Omari Mckeon MD Omari Lambert MD - 11/04/2010 1514 EDT Omari Mckeon MD Valerie Leyva RN - 11/04/2010 1418 EDT Dose change. Message left for pt w/ instructions and requested to call back to report message received. documented in this encounter Plan of Treatment Upcoming Encounters Date Type Specialty Care Team Description 09/13/2022 Office Visit Cardiology Shelton Smith MD [address] [place], [place] [address] [address] [place] [address] (Wo rk) documented as of this encounter Procedures Procedure Name Priority Date/Time Associated Diagnosis Comme nts PROTIME Routine 11/04/2010 12:00 EDT Results for this procedure are i n the results section . documented in this encounter Results (ABNORMAL) PROTIME (11/04/2010 12:00 EDT) Pathologist Sig nature Protime, External [facility] INR, External 1.8 (A) [facility] Specimen Blood specimen (specimen) Performing Organization Address City/State/ZIP Code Phon e Number [facility] documented in this encounter Visit Diagnoses Not on filedocumented in this encounter Care Teams Curb Setter Helper Relationship Specialty Start Date End Date Danish Cao, PCP - General 11/26/08 06/26/16 [address] [place] [address] documented as of this encounter
--- OUTSIDE RECORDS SUMMARY | 2022-02-07 01:35 | XMS_ITS | Encounter Summary ---
:1955 Author Organization [facility] Address [address] [place] [address] Care Team Providers Name Role Phone Danish Cao DO Primary Care Provider Encounter Details Date Type Department Care Team Description 12/01/2008 Hospital Encounter [facility] Atiya Jaffe MD [address] [address] [address], [place] [address] (Wo rk) Social History Tobacco Use Types Packs/Day Years Used Date Never Assessed Sex Assigned at Date Recorded Not on file documented as of this encounter Discharge Disposition Disposition Code Departure Means Destination Auto Discharge documented in this encounter Plan of Treatment Upcoming Encounters Date Type Specialty Care Team Description 09/13/2022 Office Visit Cardiology Shelton Smith MD [address] [place] [address] [address] [place] [address] (Wo rk) documented as of this encounter Visit Diagnoses Not on filedocumented in this encounter Care Teams Grades 1 Thru 6 Visiting Teacher Relationship Specialty Start Date End Date Danish Cao DO PCP - General 11/26/08 06/26/[address] [place] [id number] documented as of this encounter
--- OUTSIDE RECORDS SUMMARY | 2022-02-07 01:35 | XMS_ITS | Encounter Summary ---
:1955 Author Organization [facility] Address [address] [place] [address] Care Team Providers Name Role Phone Danish Cao DO Primary Care Provider Encounter Details Date Type Department Care Team Description 02/23/2009 Hospital Encounter [facility] 111 [facility] [address] [place], [place] [phone] [place] [address] [address] [place] [phone] (Wo rk) Social History Tobacco Use Types Packs/Day Years Used Date Never Assessed Sex Assigned at Date Recorded Not on file documented as of this encounter Discharge Disposition Disposition Code Departure Means Destination Auto Discharge Home documented in this encounter Plan of Treatment Upcoming Encounters Date Type Specialty Care Team Description 09/13/2022 Office Visit Cardiology Shelton Smith MD [address] [place] [address] [address] [place] [address] (Wo rk) documented as of this encounter Visit Diagnoses Not on filedocumented in this encounter Care Teams Federal Mediation Commissioner Relationship Specialty Start Date End Date Danish Cao DO PCP - General 11/26/08 06/26/[address] [place], [place] [id number] documented as of this encounter
--- OUTSIDE RECORDS SUMMARY | 2022-02-07 01:35 | XMS_ITS | Encounter Summary ---
:1955 Author Organization [facility] Address [address] [place] [address] Care Team Providers Name Role Phone Danish Cao DO Primary Care Provider Reason for Visit Reason Comments Follow-up Encounter Details Date Type Department Care Team Description 09/20/2010 Office Visit [facility] Atiya Jaffe MD A-fib ([facility]); Hematology & [address] [place] [address] Primary hyper coagulable state ([facility]) Oncology - [address], [address] [place] [phone] (Wo rk) Social History Tobacco Use Types Packs/Day Years Used Date Never Assessed Sex Assigned at Date Recorded Not on file documented as of this encounter Last Filed Vital Signs Vital Sign Reading Time Taken Comments Blood Pressure 157/95 09/20/2010 1250 EST Pulse 75 09/20/2010 1250 EST Temperature 35.6 ??C (96.1 ??F) 09/20/2010 1250 EST Respiratory Rate 16 09/20/2010 1250 EST Oxygen Saturation - - Inhaled Oxygen Concentration - - Weight 71 kg (156 lb 9.6 oz) 09/20/2010 1250 EST Height - - Body Mass Index 22.47 08/26/2010 1629 EST documented in this encounter Functional Status Cognitive Status Response Date of Assessment Because of a physical, mental, or emotional condition, do Ye s 08/26/2010 you have serious difficulty concentrating, remembering, or making decisions? (5 years old or older) documented as of this encounter Progress Notes Sid Kenney MD - 09/24/2010 1224 EST DIVISION OF HEMATOLOGY / ONCOLOGY PROGRESS/FOLLOWUP NOTE - 09/20/2010 Problem List 1. Hypercoagulable Syndrome a. Peripheral artery thromboembolism to left 2nd finger perhaps associated with paroxysmal atrial fibrillation, 02/2008 b. Excessive clots noted on wires and sheath during atrial ablation 01/2009 c. Thromosis panel non diagnostic 03/23/2009, Protein S 76 (low end of normal; checked twice) 2. Paroxysmal Atrial Fibrillation REASON FOR VISIT: We are asked by Dr Rex Hendricks to see Mr Braulio Garcia again for recommendationsregarding anticoagulation for atrial ablation for atrial fibrillation. HISTORY OF PRESENT ILLNESS: Mr Braulio Garcia is a very pleasant 54-year-old male from [place], [place], who has had a history of intermittent atrial fibrillation since 05/2007. He had been on anticoagulation with warfarin from 2007 to 2008. On 08/26/2008, he had an ablation procedure for atrial fibrillation by Dr. Hendricks, during the procedure it was noted that he had a robust thrombus in sheath and wires. Because of the unsual clotting he was referred to us for evaluation. His hypercoagulable workupwas nondiagnostic, as in the problem list above. Subsequently, his anticoagulation was stopped, and since the patient's ablation procedure had worked and he was no longer in atrial fibrillation, he didnot need anticoagulation. He reports since then he did quite well for about 1-1/2 years. Last fall, he developed atrial fibrillation again, and he reports that has been refractory to different antiarrhythmics. He denies any prior history of VTE. He has had 1 arterial thromboembolism in his finger 2 years ago, which was attributed to atrial fibrillation. He was not on anticoagulation at the time, and anticoagulation was subsequently started. Since then, he has not had any more atheroembolic events. While he was on anticoagulation in the past, he did well, and he did not have any problems with bleeding. Currently, he has paroxysmal atrial fibrillation about weekly lasing up to 10 hours. When he isnot having atrial fibrillation, he reports feeling well and does not have any complaints. When he develops atrial fibrillation, he starts having a headache, feeling lightheaded and unwell, and has to sit down, which he finds quite debilitating. He denies leg pain or leg swelling. Denies any problem bleeding. PAST MEDICAL HISTORY: 1. Paroxysmal atrial fibrillation, status post ablation 2008. 2. Peripheral arterial thromboembolism of the left index finger on 03/12/2008. 3. Basal cell carcinoma, status post resection of the left gutierrez and back in 2007. 4. Status post septoplasty in 2006. 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 FAMILY HISTORY: Father had a DVT in the left leg, for which he was treated with Coumadin. MEDICATIONS: Vitamin C 500 mg tablet daily. Aspirin 325 mg daily. Multivitamin, 1 tablet p.o. q. daily. ALLERGIES: FLECAINIDE and AMIODARONE. OBJECTIVE: The patient appears to be his stated age. He is pleasant, in no apparent distress. Vital signs show a blood pressure of 157/95, pulse of 75, respirations 16, temperature 35.6. BMI 22.47. HEENT: PERRLA, EOMI. Anicteric. Oral: Moist mucous membranes. Neck is supple with no JVD. Lungs: Clear to auscultation bilaterally. Cardiovascular: Regular rate and rhythm, normal S1 and S2. Abdomen: Soft,nontender, nondistended, bowel sounds positive. Extremities: There is no cyanosis, clubbing or edemax4. Neuro exam: Grossly nonfocal. Skin: No rashes. DIAGNOSTIC DATA: Laboratory data shows a normal CBC and basic metabolic panel 2/3. Review of extensive records around the time of the atrial ablation procedure shows no available serial platelet countsfor review. We cannot find documentation in [facility] of the ACT levels but discussion with Dr. Hendricks i ndicates that his ACT would not have been low during the procedure (eg it would have been prolonged if it had been low). ASSESSMENT: Mr Garcia is a 54-year-old male with paroxysmal atrial fibrillation. For his atrial ablation that was complicated by unusual thrombi on the wires and sheath, he received Lovenox 2 days prior, 60 mg subcu daily, and while during the procedure he was on high doses of heparin. Despite that, Dr. Hendricks noticed excessive clots on the wires and on the sheath. Subsequently, his thrombophilia panel was unremarkable except for low normal Protein S. It is possible that the patient may have a thrombophilic state that cannot be detected by our current screening methods, or possibly he had heparin induced thrombocytopenia, although it is unusual to have clotting manifest as soon as heparin is initiated (he had received heparin previously). Nonetheless, it would be prudent at this point for his second procedure to try different anticoagulant, possibly bivalirudin, for which we will discuss with Reyna. PLAN: 1. We will send a heparin-platelet factor IV antibodies and heparin induced platelet serotonin release assay,a as well as a D-dimer. 2. We will discuss with Dr Hendricks regarding optimal anticoagulation for his procedure, upcoming atrial ablation for his atrial fibrillation. We will consider using an alternate anticoagulant such as bivalirudin. In addition, it might be prudent to anticoagulate the patient now since he is having repeated atrial fibrillation and has a history of thrombosis in the past. 3. We educated the patient that we cant really predict what will happen in the procedure in terms ofwhether he will re-develop recurrent thrombosis, so some risk is involved. The patient was seen and discussed with Dr Atiya Jaffe. Addendum Had a phone conference with Dr. Hendricks. We decided that for the procedure we had following options: 1. Use bivalirudin. Dr. Hendricks will see if this is feasible to be administered for this procedure in the lab pack chemist. Issues might arise related to the half life, in case of complications like cardiac perforation, as there is no antidote. 2. Continue with warfarin through the procedure in addition to heparin. This is standard now and wasnot when the patient had his first procedure. 3. Proceed with procedure per protocol and abort in case excessive clotting is noted again. 4. We will be happy to discuss further as needed. Dr. Hendricks also agreed to anticoagulate the patient so Mr Garcia was contacted. Since he has a history of borderline low Protein S level for his atrial fibrillation he will be restarted on a Fondaparinux bridge to coumadin. We choose fondaparinux as a heparin alternative given the above issues that are not yet sorted out. 1. Start Fondaparinux 5mg SQ daily and warfarin 5mg daily. Plan on at least 5 say overlap INR goal 2-3. 3. He will have his INRs checked in [facility] and we will manage until he is stable. Patient was seen and discussed with Dr. Jaffe. I saw and examined the patient with the resident/fellow. I agree with the findings and plan of care documented in the resident's/fellow's note. Edited and Electronically Signed by Atiya Jaffe MD 09/24/2010 12:23 Electronically Reviewed by KRISTA Rolon 09/23/2010 18:47 KRISTA Rolon Atiya Jaffe MD operations officer afloat - KRISTA Rolon - JOHANA Job ID: SM Doc ID: [id number] Ext Doc ID: [id number] cc: Rex Hendricks MD Sid Sequeira MD - 09/20/2010 1344 EST This office note has been dictated. documented in this encounter Miscellaneous Notes Scanned Note-Null - Traffic Controller Cable, Scan - 02/11/2011 0850 EDTAssociated Order(s): ORDERS - SCANNED documented in this encounter Plan of Treatment Upcoming Encounters Date Type Specialty Care Team Description 09/13/2022 Office Visit Cardiology Shelton Smith MD [address] [place] [address] [address] [place] [phone] (Wo rk) documented as of this encounter Procedures Procedure Name Priority Date/Time Associated Diagnosis Comme nts ORDERS - SCANNED 02/11/2011 8:50 Results for this EDT procedure are i n the results section. UNFRACTIONATED HEPARIN Routine 09/20/2010 14:14 A-fib ([facility]-HCC) Results for this DEPENDENT PLT AB EST Primary procedure a re in hypercoagulable state the re sults (CMS-HCC) section. HEPARIN PF4 IGG AB Routine 09/20/2010 14:14 A-fib (CMS-H CC) Results for this (HIT), S EST Primary procedure are i n hypercoagulable state the re sults ([facility]) section. documented in this encounter Results ORDERS - SCANNED (02/11/2011 8:50 EDT) Specimen Narrative This result has an attachment that is no t available. Procedure Note Traffic Controller Cable, Scan - 02/11/2011 8:50 ED T D-DIMER (09/20/2010 14:14 EST) Pathologist Sig nature D-Dimer <200Comment: CUTOFF <230 ng/mL [facility] VALUE FOR THE EXCLUSION OF DVT and PE: 230 ng/mL Specimen Blood specimen (specimen) Performing Organization Address City/State/ZIP Code Phon e Number [facility] [address] [place] [address] SERVICES [facility] [address] [place] [address] PORCINE DEP PLT AB (09/20/2010 14:14 EST) Porcine Hep Low Dose 0Unit: % [facility] [address] LAB Porcine Hep Hi Dose 0Unit: % [facility] [address] LAB Porcine Negative [facility] Interpretation 90946 A positive result requires r elease of serotonin from target ? LAB platelets in the presence of patient serum and low dose ? (0.1 U/ml) heparin of >20%, together with inhibition of ? release (<20%) with high dos e (100 U/ml) heparin. Results ? obtained with this patient's serum were negative. These ? results argue against, but d o not completely rule out a ? diagnosis of Heparin-Induced Thrombocytopenia (HIT). ? This test was developed and its performance characteristics ? determined by [facility]. It has not been ? cleared or approved by the F DA. However, the FDA has ? determined that such clearan ce or approval is not ? necessary. The test has been validated in [place] and is used ? for clinical purposes. It ould not be regarded as ? investigational or for [facility]. Our Laboratory is ? certified under the Clinical Laboratory Improvement ? Amendments of 1988 (CLIA) as qualified to perform high ? complexity clinical laborato ry testing. ? Test Performed by: [facility] ? [address] ? [place] [address] ? Specimen Performing Organization Address City/State/[facility] Code Phon e Number [facility] [address] [place] [address] SERVICES [facility] [address] [place] [address] HEPARIN PF4 ANTIBODY (09/20/2010 14:14 EST) Reactivity 5Reference range: <20 [facility] Unit: % Interpretation Negative [facility] Reference range: Negative Comment [facility] Negative test results have a bout 90% predictive power ? for excluding immune-mediate d heparin induced thrombocyto- ? penia (HIT type II), but do not completely exclude clinical ? HIT diagnosis, especially wh en clinical probability is ? high. ? Performed or Referred by: [facility] Med and Path, [address] [place] [address], Lab Dir: Guy Temple III, ? MD ? Specimen Blood specimen (specimen) Performing Organization Address City/State/ZIP Code Phon e Number [facility] [address] [place] [address] SERVICES [facility] [address] [place] [address] documented in this encounter Visit Diagnoses Diagnosis A-fib (HCC-CMS) (HCC) Atrial fibrillation Primary hypercoagulable state (HCC-CMS) (HCC) Primary hypercoagulable state documented in this encounter Discontinued Medications Medication Sig Discontinue Reason Start Date End Date dofetilide (TIKOSYN) 500 Take 1 Cap by mouth Therapy completed 01/201109/20/2010 mcg capsule every 12 hours. metoprolol (LOPRESSOR) 25 Take 1 Tab by mouth Therapy completed 12/201009/20/2010 mg tablet at bedtime. metoprolol (LOPRESSOR) 50 Take 1 Tab by mouth 08/29/19 11 09/20/2010 mg tablet daily with breakfast. documented as of this encounter Care Teams Sales Support Coordinator Relationship Specialty Start Date End Date Danish Cao DO PCP - General 11/26/08 06/26/16 [address] [address] documented as of this encounter
--- OUTSIDE RECORDS SUMMARY | 2022-02-07 01:35 | XMS_ITS | Encounter Summary ---
:1955 Author Organization [facility] Address [address] [place] [address] Care Team Providers Name Role Phone NashDanish Primary Care Provider Reason for Visit Reason Comments Irregular Heart Beat Ablated 2 years ago, about a year later says he started having some signs that things were happening again. In Apr. he was sure he was in fib but didn't get an ekg of it. Started having irregular episodes that woul d convert on their ouwn with relaxation. Then Aug 03 he had a bad episode that disoriented him, he went to the ER and g ot an EKG. They tried to slow his heart down and gave him dilt . and he stayed in fib for 9 hours., was sent home and told that if he was still in fib the next day he should Other get himself to [place]. N o bad episodes since but has been in and out of fib since then. Encounter Details Date Type Department Care Team Description 08/12/2010 Office Visit [facility] Rex Hendricks-fib ( [facility]) Cardiology - Sayra Akers MD (Primary Dx) [address] [place], [place] [id number] [place] [address], [facility] [address] [place] [phone] (Wo rk) Social History Tobacco Use Types Packs/Day Years Used Date Never Assessed Sex Assigned at Date Recorded Not on file documented as of this encounter Last Filed Vital Signs Vital Sign Reading Time Taken Comments Blood Pressure 142/92 08/12/2010 1508 EST Pulse 80 08/12/2010 1508 EST Temperature - - Respiratory Rate - - Oxygen Saturation - - Inhaled Oxygen Concentration - - Weight 68.9 kg (152 lb) 08/12/2010 1508 EST Height 177.8 cm (5' 10) 08/12/2010 1508 EST Body Mass Index 21.81 08/12/2010 1508 EST documented in this encounter Discharge Disposition Disposition Code Departure Means Destination Auto Discharge documented in this encounter Progress Notes Rex Hendricks MD - 09/16/2010 1357 EST RE: NAME: BRAULIO GARCIA : 1955 PROGRESS/FOLLOWUP NOTE - 08/12/2010 [place] [address] Cao: I had the pleasure of seeing your patient, Yonis Garcia, in the office today. As you know, Yonis is a very pleasant gentleman who has a history of paroxysmal atrial fibrillation in the past. He has had aninteresting and complicated story. He has had some sort of hypercoagulable state that presented prior to his ablation with an embolus to the finger. He was anticoagulated with Coumadin; ultimately underwent an ablation procedure where he was found to have a very thrombogenic venous system with clot forming on the wires and the sheaths. He nonetheless underwent the ablation without incident; initiallyseemed to have eliminated the atrial fibrillation, but unfortunately has subsequently had further episodes of symptomatic atrial fibrillation. To complicate matters, he has had times when he had symptoms of lightheadedness and headache that were clearly documented to be associated with sinus rhythm. However, at other times he has had symptoms that were associated with atrial fibrillation. He has recen tly been to the emergency room with documented AFib. Episodes are now occurring about 30 minutes at a time, occurring something like once a month. 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 His anticoagulation workup was performed by Dr Jaffe and really revealed only relatively low protein S. She nonetheless felt that he did not need to be on c hronic anticoagulation, although he might intermittently need anticoagulation for transient periods of increased risk. On physical examination, his blood pressure is 140/90. which is he tells was somewhat high for him. His heart rate is in the 80s. Lungs are clear. He has a normal S1 and S2 without murmurs, rubs or gallops. He has no clubbing, cyanosis or edema and 2+ pulses in his extremities. He has tolerated atenolol poorly and calcium channel blockers were taken at the same time as flecainide and he developed hallucinations, not entirely clear which one it was in response to. He is tolerating amiodarone poorly, although he does not recall what his symptoms were and gets nausea with Keflex. He is currently taking no medications at all. We talked at great length. We spent over an hour, more than 50% was spent on counseling. The issue as I see it is that he does have some symptomatic atrial fibrillation, and as such, could benefit with therapy to reduce his fibrillation; however, he has had at times symptoms that were not associated with fibrillation and hence I think even in the best case scenario if we completely eliminate AFib, we will not completely eliminate his symptoms. The question then comes up how ought we best and most safely eliminate atrial fibrillation. The alternatives are antiarrhythmic medications or ablation. From an antiarrhythmic standpoint, he has tolerated medicines poorly in the past, but he has not tried Multaq and he has not tried dofetilide. My personal preference would be to try dofetilide as it is unrelated to amiodarone and flecainide, which he has tolerated poorly in the past. I think he should be taking an aspirin a day for life either way, as shouldanybody who has a history of atrial fibrillation, regardless of their coagulation status. Finally hecould conceivably be a candidate for repeat ablation procedure, although given his hypercoagulable states in the past and the thrombus that we saw on the venous sheath in the past, despite the fact that he did well, it makes me somewhat nervous and I told him that I would only consider repeat ablationafter conferring with Dr Jaffe about the safety of repeat ablation. For the meantime, they would like to think over his options and will get in touch with Dr Jaffe to find out her opinion about thesafety of a repeat ablation procedure, and we will base our decisions about where to go from here after reconferring with Yonis. I thank you very much for allowing me to participate in Mr Garcia's care. If you have any questions or comments, please do not hesitate to call. Sincerely, Electronically Signed by Rex Hendricks MD 09/16/2010 13:57 Rex Hendricks MD - Rex Hendricks MD - [facility] [place] Job ID: SM Doc ID: [id number] Ext Doc ID: [id number] cc: Danish Cao DO pectorRex MD - 08/12/2010 1626 EST This office note has been dictated. documented in this encounter Plan of Treatment Upcoming Encounters Date Type Specialty Care Team Description 09/13/2022 Office Visit Cardiology Shelton Smith MD [address] [place] [address] [address] [place] [phone] (Wo rk) documented as of this encounter Visit Diagnoses Diagnosis A-fib (HCC-CMS) (HCC) - Primary Atrial fibrillation documented in this encounter Discontinued Medications Medication Sig Discontinue Reason Start Date End Date WARFARIN SODIUM Take by mouth. As 011 (COUMADIN ORAL) Directed documented as of this encounter Care Teams Customer Support Coordinator Relationship Specialty Start Date End Date Danish Cao DO PCP - General 11/26/08 06/26/16 [address] [place] [address] documented as of this encounter
--- OUTSIDE RECORDS SUMMARY | 2022-02-07 01:35 | XMS_ITS | Encounter Summary ---
:1955 Author Organization [facility] Address [address] [id number] Care Team Providers Name Role Phone NashDanish bland DO Primary Care Provider Encounter Details Date Type Department Care Team Description 10/08/2010 Anti-coag visit [facility] Atiya Herrera crime prevention worker & Oncology - [address] [place] [address] [address] [place] [address] Social History Tobacco Use Types Packs/Day Years [...] documented as of this encounter Progress Notes Gerald Da Silva - 10/12/2010 1048 EDT Coumadin management transferred to Cardiology Coumadin Clinic to prepare pt for pending ablation. Spoke with Radha Dubois NP about temporary transfer of care. Pt is aware. [facility]. Intro letter sent to Radha via [employer] for pt record. Atiya Hopson RN - 10/08/2010 1129 EDT 1125 Left message for pt to call. Atiya Herrera RN 1215 Left message on pts cell phone per his request, see flowsheet for dose change. Atiya Herrera, RN documented in this encounter Plan of Treatment Upcoming Encounters Date Type Specialty Care Team Description 09/13/2022 Office Visit Cardiology Shelton Smith MD [address] [place] [address] [address] [place] [phone] (Wo rk) documented as of this encounter Procedures Procedure Name Priority Date/Time Associated Diagnosis Comme nts PROTIME Routine 10/08/2010 Results for thi s procedure are in the resu lts section. documented in this encounter Results PROTIME (10/08/2010) Pathologist Sig nature Protime, External 36.4 POINT OF CARE INR, External 3.7 POINT OF CARE Specimen Blood specimen (specimen) Performing Organization Address City/State/ZIP Code Phon e Number [facility] POINT OF CARE POINT OF CARE documented in this encounter Visit Diagnoses Not on filedocumented in this encounter Care Teams Revenue Cycle Consultant Relationship Specialty Start Date End Date Danish Cao DO PCP - General 11/26/08 06/26/16 [address] [place] [address] documented as of this encounter
--- OUTSIDE RECORDS SUMMARY | 2022-02-07 01:35 | XMS_ITS | Encounter Summary ---
:1955 Author Organization [facility] Address [address] [place] [address] Care Team Providers Name Role Phone Danish Cao DO Primary Care Provider Encounter Details Date Type Department Care Team Description 09/11/2008 Before [facility] - Rex Hendricks , Converted Visit Shavon santamaria MD (Shavon) [address] [phone] [facility] [address] [phone] (Wo rk) Social History Tobacco Use Types Packs/Day Years Used Date Never Assessed Sex Assigned at Date Recorded Not on file documented as of this encounter Progress Notes Rex Hendricks MD - 01/14/2009 1811 EDT RE: NAME: BRAULIO GARCIA : 1955 PROGRESS/FOLLOWUP NOTE - 09/11/2008 [place] [address] Cao and Dr Moore: I had the pleasure of seeing your patient, Braulio Garcia in the office today. As you know, Braulio is a very pleasant gentleman who recently underwent an ablation for atrial fibrillation and comes in for his two week followup appointment today. Brauliohas done relatively well since his ablation, unfort unately he had a urinary tract infection which is resolving nicely on Cipro. He had some groin oozing which has resolved also. He had an episode yesterday of waking in the middle of the night in atrialfibrillation which lasted until the morning and then converted on its own. Otherwise he has been feeling well, although he has not gotten back to his full exercise because of instructions to take 14 days off after the procedure. Current medications: 1. Metoprolol 50 in the morning and 25 at night. 2. Coumadin. Physical exam: Weight is 155. Blood pressure is 130/90 with a heart rate in the 80s and regular. Lungs are clear. He has a normal S1 and S2 without murmurs, rubs or gallops. He has no clubbing, cyanosis or edema and 2+ pulses in his extremities. So far Braulio is doing well. Episode of atrial fibrillation in the first six weeks does not have any [facility] prognostic significance. We will have to wait and see what his rhythm does after the periablation inflammation has resolved. Two things of note, Braulio will have to be followed intermediate project manager in Dr Benavides office for surveillance of his aortic root. He had mild aortic dilatation noted incidentally on transesophaechocardiogram during this past hospitalization. He also has a history interestingly of an embolus to a finger in the past and was noted to have a very easily formed thrombus during his ablation procedure. We sent his factor V Leiden and protein gene mutation were sent but these were normal. I think decisions about intermediate project manager anticoagulation will depend upon evaluation by sedimentationist It appears logical to me that an embolus to the finger confers an increased risk of stroke no less than a history of a CVA itself. The difference is only where the embolus landed. Having said that, I would like to confirm with a sedimentationist that this is an appropriate interpretation. If that were true, he would have an indication for lifelong anticoagulation. He will be on Coumadin for at least three months given the denudingof the left atrial endothelium and that it occurs routinely with ablation and in the interim I would like to get an opinion rendered by a sedimentationist so we can make a decision aboutwhat to do for Mr Garcia at that end of three months of Coumadintherapy. Additionally, he has not been able to have evaluation for protein C or protein S deficiency while he on Coumadin and I would likethe opinion of a sedimentationist about the need for testing of his family members. I would assume that if we believe he has an increased risk of thrombus formation given the history of embolus to the finger that we would not stop his Coumadin just to get protein C and protein S testing. But other than his hematology issues, things seem to be going well with Yonis. He will give us a call should he have any further symptoms, otherwise he will have a follow up appointment at six months and we will speak toa sedimentationist prior to the three month michael to make decisions about the Coumadin. Thank you very much for allowing me to participate in Marcus care. If you have any questions or comments, do not hesitate to call. A list of current medications has been provided. Sincerely, Signed by Rex Hendricks MD 09/29/2008 10:51 Rex Hendricks MD - Rex Hendricks MD - [facility] Job ID: [id number] Doc ID: [id number] cc: DO Manny Hu MD documented in this encounter Plan of Treatment Upcoming Encounters Date Type Specialty Care Team Description 09/13/2022 Office Visit Cardiology Shelton Smith MD [address] [place] [address] [address] [place] [phone] (Wo rk) documented as of this encounter Visit Diagnoses Not on filedocumented in this encounter Care Teams Snuff Box Finisher Relationship Specialty Start Date End Date Danish Cao DO PCP - General 11/26/08 06/26/16 [address] [facility] [place] [address] documented as of this encounter
--- OUTSIDE RECORDS SUMMARY | 2022-02-07 01:35 | XMS_ITS | Encounter Summary ---
:1955 Author Organization [facility] Address [address] [place] [address] Care Team Providers Name Role Phone Danish Cao DO Primary Care Provider Encounter Details Date Type Department Care Team Description 09/20/2010 [facility] Atiya Jaffe MD Primary Encounter - [address] hypercoagulable state [address] [facility] ([facility]) [address] [address] [address], [place] [phone] Social History Tobacco Use Types Packs/Day Years Used Date Never Assessed Sex Assigned at Date Recorded Not on file documented as of this encounter Functional Status Cognitive Status Response Date of Assessment Because of a physical, mental, or emotional condition, do Ye s 08/26/2010 you have serious difficulty concentrating, remembering, or making decisions? (5 years old or older) documented as of this encounter Medications at Time of Discharge Medication Sig Dispensed Refills Start Date End Date ascorbic acid (VITAMIN Take 500 mg by mouth 0 C) 500 mg tablet daily. Multivitamins with Take 1 Tab by mouth 0 Minerals Tab daily. aspirin 325 mg Take 325 mg by mouth 0 08/26/2010 10/25/2010 tabletIndications: daily. Indications: platelet aggregation PLATELET AGGREGATION inhibition INHIBITION documented as of this encounter Discharge Disposition Disposition Code Departure Means Destination Auto Discharge Home documented in this encounter Plan of Treatment Upcoming Encounters Date Type Specialty Care Team Description 09/13/2022 Office Visit Cardiology Shelton Smith MD [address] [place] [address] [phone] (Wo rk) documented as of this encounter Procedures Procedure Name Priority Date/Time Associated Diagnosis Comme nts CT ANGIO CHEST 05/26/2015 13:12 Results f or this W/WO CONTRAST EST procedure are in the results section. D-DIMER Routine 09/20/2010 14:14 Primary hypercoagulable Results for this EST state ([facility]) procedure ar e in the results section. documented in this encounter Results CT ANGIO CHEST (05/26/2015 13:12 EST) Anatomical Region Laterality Modality Other Specimen Narrative [facility] - 05/26/2015 13:[address] ANGIO CHEST ??05/26/2015 1:12 PM Signs and Symptoms/Comments: ??Aortic ro ot dilation.. Technique: A contrast-enhanced helical CT acquisiti on of the chest from apices through the lung bases was performed wit h a reconstructed slice thickness of 0.9 mm with overlapping 0.4 5 mm intervals following the intravenous administration of ??100-120 cc of 370 mg% nonionic contrast injected at a rate of 4-5 cc/se cond. ??A test bolus was utilized and a scan delay calculated to determine the timing of acquisition from the initiation of contr ast injection. Scans were reviewed on a dedicated PACS workstation for analysis. Comparisons: Chest CTs 2008. Findings: The exam shows no abnormalitie s of the chest wall. The heart and pericardium have a normal appe arance. There are is dilatation of the aorta at the level of the sinuses of Valsalva, measuring 4.9 CM in sagittal reconstruct ed images. While prior studies were not performed for aortic ev aluation, this measurement is roughly similar to that obtained from e studies of december 01, 2008. The mid ascending aorta is normal in miya iber, measuring 3.7 CM and diameter on sagittal reconstructed image s. The transverse and descending aorta are normal in caliber, with a measurement in the proximal descending aorta 2.7 CM. There are no enlarged mediastinal or hilar lymph nodes. Esophagus is alondra l in appearance. No pleural abnormalities are seen. There is a defec t within the posterior left diaphragm with fat extending into the le ft lower chest. The airways and lungs show no abnormalit ies of the trachea. The bronchi are normal in caliber and appear ance. There are some minimal scarring within the medial segment of th e middle lobe. There is a subpleural lymph node within the middle lobe anteriorly just adjacent to the minor fissure. This was noted on the CT studies of 2008 and is unchanged. A 1-2 mm nodule in the left l ower lobe laterally seen on the prior study is unchanged. A 2 mm sub pleural nodules seen in the right upper lobe anterolaterally and was present previously and is unchanged. Scans of the upper abdomen are limited b ut show no abnormalities. The upper abdominal aorta is normal in calib er. There are at least 2 small high attenuation foci within the l iver likely reflecting transient high attenuation areas related to hepatic arterial perfusion. Impression 1. Dilated aortic root at the level of t he sinuses of Valsalva measuring 4.9 CM on sagittal reconstruct ed images. The ascending, transverse, and descending thoracic aort a have normal appearance. 2. Small bilateral lung nodules on the c ircle benign. 3. Scarring medial segment middle lobe. 4. 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 Procedure Note Chito Guevara MD - 05/26/2015 CT ANGIO CHEST 05/26/2015 1:12 PM Signs and Symptoms/Comments: Aortic root dilation.. Technique: A contrast-enhanced helical CT acquisiti on of the chest from apices through the lung bases was performed wit h a reconstructed slice thickness of 0.9 mm with overlapping 0.4 5 mm intervals following the intravenous administration of 100-120 cc of 370 mg% nonionic contrast injected at a rate of 4-5 cc/se cond. A test bolus was utilized and a scan delay calculated to determine the timing of acquisition from the initiation of contr ast injection. Scans were reviewed on a dedicated PACS workstation for analysis. Comparisons: Chest CTs 2008. Findings: The exam shows no abnormalitie s of the chest wall. The heart and pericardium have a normal appe arance. There are is dilatation of the aorta at the level of the sinuses of Valsalva, measuring 4.9 CM in sagittal reconstruct ed images. While prior studies were not performed for aortic ev aluation, this measurement is roughly similar to that obtained from th e studies of december 01, 2008. The mid ascending aorta is normal in miya iber, measuring 3.7 CM and diameter on sagittal reconstructed image s. The transverse and descending aorta are normal in caliber, with a measurement in the proximal descending aorta 2.7 CM. There are no enlarged mediastinal or hilar lymph nodes. Esophagus is alondra l in appearance. No pleural abnormalities are seen. There is a defec t within the posterior left diaphragm with fat extending into the le ft lower chest. The airways and lungs show no abnormalit ies of the trachea. The bronchi are normal in caliber and appear ance. There are some minimal scarring within the medial segment of th e middle lobe. There is a subpleural lymph node within the middle lobe anteriorly just adjacent to the minor fissure. This was noted on the CT studies of 2008 and is unchanged. A 1-2 mm nodule in the left l ower lobe laterally seen on the prior study is unchanged. A 2 mm sub pleural nodules seen in the right upper lobe anterolaterally and was present previously and is unchanged. Scans of the upper abdomen are limited b ut show no abnormalities. The upper abdominal aorta is normal in calib er. There are at least 2 small high attenuation foci within the l iver likely reflecting transient high attenuation areas related to hepatic arterial perfusion. Impression 1. Dilated aortic root at the level of t he sinuses of Valsalva measuring 4.9 CM on sagittal reconstruct ed images. The ascending, transverse, and descending thoracic aort a have normal appearance. 2. Small bilateral lung nodules on the c ircle benign. 3. Scarring medial segment middle lobe. 4. 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 Performing Organization Address City/State/ZIP Code Phon e Number [facility] D-DIMER (09/20/2010 14:14 EST) Pathologist Sig nature D-Dimer <200Comment: CUTOFF <230 ng/mL [facility] VALUE FOR THE EXCLUSION OF DVT and PE: 230 ng/mL Specimen Blood specimen (specimen) Performing Organization Address City/State/ZIP Code Phon e Number [facility] [address] [place] [address] SERVICES [facility] [address] [place] [address] documented in this encounter Visit Diagnoses Diagnosis Primary hypercoagulable state (HCC-CMS) (HCC) Primary hypercoagulable state documented in this encounter Care Teams Psychiatric Rn Relationship Specialty Start Date End Date Danish Cao DO PCP - General 5/6/09 12/4/[address] [place] [address] documented as of this encounter
--- OUTSIDE RECORDS SUMMARY | 2022-02-07 01:35 | XMS_ITS | Encounter Summary ---
:1955 Author Organization [facility] Address [address] [place] [address] Care Team Providers Name Role Phone NashDanish stevens DO Primary Care Provider Reason for Visit Reason Onset Date Comments Prior Auth, Other (i.e. radiology, etc.) 08/23/2010 Encounter Details Date Type Department Care Team Description 08/23/2010 Telephone [facility] RuthieRex, Prior Auth, Other Cardiology - Sayra STILES (i.e. radiology, etc.) [address] [place] [address] (Wo rk) Social History Tobacco Use Types Packs/Day Years Used Date Never Assessed Sex Assigned at Date Recorded Not on file documented as of this encounter Miscellaneous Notes Telephone Encounter - Razia Coffman - 08/23/2010 1146 EST Called [employer] [place] medical services department ([phone]) and got an approval for the elective IPadmission for Dofetilide therapy as per Valerie Pitt with the date of admission on 09/16/10. Spoke with Melissa nurse reviewer and she gave me the approved authorization #[id number]. She request if the admitdate changes we will need to call so they can update accordingly. Spoke with the patient to inform hallie rae of the approval and he states he has been in contact with Valerie Pitt about moving the admit dateup as he is still in rhythm. Spoke with Venice Benedict and Valerie Pitt to get updated admit date, moved up to 08/26/10 as per Venice. Called [facility] medical services and spoke with Maryellen, updated/changed the admit date for billing purposes. Followed up via e-mail to as requested by patient. Razia Coffman documented in this encounter Plan of Treatment Upcoming Encounters Date Type Specialty Care Team Description 09/13/2022 Office Visit Cardiology Shelton Smith MD [address] [place], [place] [address] [address] [place] [phone] (Wo rk) documented as of this encounter Visit Diagnoses Not on filedocumented in this encounter Care Teams Legal Technician Relationship Specialty Start Date End Date Danish Cao DO PCP - General 11/26/08 06/26/[address] [place] [id number] documented as of this encounter
--- OUTSIDE RECORDS SUMMARY | 2022-02-07 01:35 | XMS_ITS | Encounter Summary ---
:1955 Author Organization [facility] Address [address] [place] [address] Care Team Providers Name Role Phone Danish Cao DO Primary Care Provider Encounter Details Date Type Department Care Team Description 03/23/2009 Hospital Encounter [facility] - Atiya Jaffe MD [address] [facility], [address] [place] [phone] [facility] [address] [phone] [address] [place], [place] [address] Social History Tobacco Use Types Packs/Day Years Used Date Never Assessed Sex Assigned at Date Recorded Not on file documented as of this encounter Discharge Disposition Disposition Code Departure Means Destination Auto Discharge Home documented in this encounter Plan of Treatment Upcoming Encounters Date Type Specialty Care Team Description 09/13/2022 Office Visit Cardiology Shelton Smith MD [address] [facility] [address] [place], [place] [phone] (Wo rk) documented as of this encounter Procedures Procedure Name Priority Date/Time Associated Diagnosis Comme nts PROTEIN S ACTIVITY Routine 03/23/2009 14:44 Resul ts for this EDT procedure are i n the results section. PROTEIN S ANTIGEN Routine 03/23/2009 14:44 Result s for this EDT procedure are i n the results section. LIPID PROFILE Routine 03/23/2009 14:44 Results fo r this (INCLUDES EDT procedure are i n CHOLESTEROL, the results TRIGLYCERIDES, HDL, section. LDL) documented in this encounter Results (ABNORMAL) PROTEIN S CLOT (03/23/2009 14:44 EDT) Protein S 75 (L) 76 - 151 % [facility] Comment: LAB Sample retested, result confirmed a. ??Acquired Protein S defi ciencies are associated with oral anticoagulants, acute thrombotic events, , vitamin K deficiency, L-aspariginase treatment and inflammatory syndrome. ?? Deficiencies may or may not be present with liver dise ase and DIC. b. ??Results may be OVER-ES TIMATED in the presence of strong LA's (lupus anticoagulants), heparin levels greater than 2.0 IU/mL, and direct thrombin inhibitors such as hirudin or argatroban. c. ??Results may be UNDER-E STIMATED by factor VIII levels greater than 250% or activated factors that would significantly shorten the aPTT. d. ??Results ARE NOT affect ed by the presence of activated Protein C Resistance (APC-R) or the Factor V Leiden mutation associated with APC-R. e. ??Acute illness and/or th rombosis may influence test results in an unpredictable manner, therefore results should be interpreted with caution i n this setting. Specimen Performing Organization Address City/[facility] Phon e Number [facility] [address] [place] [address] SERVICES [facility] [address] [place] [address] PROTEIN S ANTIGEN (03/23/2009 14:44 EDT) Protein S Ag, Free 96Reference range: 65 to 160 [facility] Unit: % Performed or Referred by: [facility] Dpt of Lab Med a nd Path, [address] , [place] [address], Lab Dir: Guy ring III, MD Specimen Performing Organization Address City/[facility] Phon e Number [facility] [address] [place] [address] SERVICES [facility] [address] [place] [address] (ABNORMAL) LIPID PROFILE (03/23/2009 14:44 EDT) Pathologist [facility] Cholesterol 197 mg/dl [facility] Comment: LAB Desirable:<200 Borderline High:200-239 High:>os=621 Triglycerides 201 (H) 35 - 160 mg/dl [facility] HDL 54 mg/dl [facility] Comment: LAB Low:<40 High(Desirable):>or=60 LDL, Calculated 103 mg/dl [facility] Comment: LAB Optimal:<100 Above optimal:100-129 Borderline High:130-159 High:160-189 Very High:>ad=309 Chol/HDL Ratio 3.6 [facility] Fasting? No [facility] Specimen Performing Organization Address City/State/ZIP Code Phon e Number [facility] [address] [place] [address] SERVICES [facility] [address] [place] [address] documented in this encounter Visit Diagnoses Not on filedocumented in this encounter Care Teams Contact Center Specialist Relationship Specialty Start Date End Date Danish Cao DO PCP - General 11/26/08 06/26/16 [address] [place] [address] documented as of this encounter
--- OUTSIDE RECORDS SUMMARY | 2022-02-07 01:35 | XMS_ITS | Encounter Summary ---
:1955 Author Organization [facility] Address [address] [place] [address] Care Team Providers Name Role Phone NashDanish bland Primary Care Provider Encounter Details Date Type Department Care Team Description 03/23/2009 Hospital Encounter [facility] Freddy Jaffe MD Hematology & Oncology [address] [place] [address] [place], [place] [phone] (Wo rk) Social History Tobacco Use Types Packs/Day Years Used Date Never Assessed Sex Assigned at Date Recorded Not on file documented as of this encounter Discharge Disposition Disposition Code Departure Means Destination Home or Self [facility] documented in this encounter Progress Notes Suman Marquez Aprn, NP - 03/23/2009 0000 EDT DIVISION OF HEMATOLOGY / ONCOLOGY PROGRESS/FOLLOWUP NOTE - 03/23/2009 This patient was seen with the supervision of Atiya Jaffe MD. REASON FOR VISIT: Ongoing management of hypercoagulable syndrome manifested as left index finger thrombosis and thrombosis noted during atrial ablation procedure. MEDICAL PROBLEM LIST: 1. Hypercoagulable syndrome. a. Left index finger peripheral atrial thrombosis February 2008, treated with warfarin without concurrent use of either heparin or ibg-hjbrkgomv-kjhplc heparin. b. Robust thrombus in sheath and wires during atrial ablation procedure August 2008. c. Thrombosis panel off warfarin 03/16/2009, nondiagnostic with protein S at lower cutoff of normal range (76%). D-dimer 0.36. Repeat protein S 75%, with normal antigen level. PAST MEDICAL HISTORY: 1. Paroxysmal atrial fibrillation diagnosed 05/2007, status post ablation 09/23/2008. 2. Basal cell carcinoma, status post resection of the left gutierrez and back lesion in 2007. 3. Status post septoplasty 2006. HISTORY OF PRESENT ILLNESS: Mr. Garcia is a pleasant 53-year-old male with a past medical history as noted above for both atrial fibrillation and peripheral thrombosis. Mr. Garcia was not able to tolerate medical intervention for his atrial fibrillation. He failed both beta-alfreda, calcium channel alfreda and flecainide. On 03/12/2008, he presented to [facility] with acute onset of purple discoloration in the left index finger. This was without pain. This was considered to be peripheral atrial thrombosis and he was treated with warfarin without concurrent use of heparin or bvc-sqsljieng-zwyzuo heparin. After approximately 3 days of initiating therapy, the symptoms resolved completely. On 08/26/2008, Mr. Garcia underwent ablation by Dr Rex Hendricks, who noted him to be having robust thrombus in sheath and wires. Mr. Garcia was most recently seen in the thrombosis and hemostasis program on 12/01/2008. At that time, he was complaining of ongoing progressive fatigue as well as weight loss. Mr. Garcia had a CAT scan of the chest with PE protocol on 12/01/2008, which showed no evidence of pulmonary embolism. Since his previous visit and this afternoons visit, Mr. Garcia has since changed his health insurance carrier. He had a thrombosis panel drawn on 03/16; the results are noted up above. He is here to review these findings for further recommendation. On presentation to the clinic this afternoon, Mr. Garcia states overall feeling well. 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 He exercises regularly with approximate 90-minute daily morningjog. He has enjoyed the summer. ALLERGIES: FLECAINIDE causes hallucinations. He cannot tolerate ATENOLOL and CALCIUM CHANNEL BLOCKERS as well as AMIODARONE. KEFLEX causes nausea. CURRENT MEDICATIONS: Multivitamin tab once daily. Vitamin C once daily. REVIEW OF SYSTEMS: A 12-point review of systems was reviewed by the patient and myself and is documented in the chart. Pertinent negatives: No shortness of breath. No chest pain. No leg pain. Pertinentpositives: Dizziness after lifting heavy objects. PHYSICAL EXAM: Temperature today is 36.2, heart rate 79, blood pressure 129/78, respirations 16. Weight today is 69.7 kg. In general, a well-developed, well- nourished male in no apparent distress. ECOG status 0. Head, ears, eyes, nose, and throat: Pupils are equal and round, reactive to light bilaterally. The conjunctivae are nonicteric. The neck is supple. There is no lymphadenopathy. Cardiac: S1, S2 with a regular rate and rhythm. No gallop, rub or murmur. Lungs are clear to auscultationin all carlson. No wheezes, rales or rhonchi. The abdomen is soft, nontender, nondistended with positive bowel sounds. Lower extremities are without swelling, edema or cyanosis. LABORATORY DATA: Antithrombin function 105% (86 to 128). Cardiolipin antibody IgM less than 4 (less than 10). Cardiolipin antibody IgG less than 4 (less than 10). Protein C 154% (77 to 188). D-dimer 0.36 (less than 0.5). Dilute viper venom time 31.4 seconds (32.0 to 44). Protein S 76% (76 to 151). Factor V Leiden negative. Prothrombin gene 43598H negative. High-sensitivity CRP 0.6 (low risk) IMAGIN02/23/2009 MR cardiac function shows left global ventricular function is normal with a LVEFof 57%. Impression: 1. Normal cardiac MRI. No evidence of ARVD or inflammation of the myocardium. 2. Dilated ascending aorta at the sinuses of Valsalva. IMPRESSION: Mr. Garcia is a pleasant 53-year-old male with a past medical history significant for atrial fibrillation. He is status post atrial ablation. During this procedure he was noted to have robust thrombus in the sheath and wires. Mr. Garcia had partial thrombosis panel drawn in August 2008 while on warfarin. Protein S at this time came back at 19. Repeat thrombophilia testing in February 2009 shows all markers within normal limits and protein S at low normal of 76%. In reviewing Mr. Coto overall risk for thrombosis, he has a first-degree relative, his father, who had a history of a thrombosis with sudden at age 71. Mr. Garcia is not obese. His weight is not a risk factor for him. In re viewing his thrombosis panel, all results are negative with a low normal protein S. It is possible that this represents a subtle protein S deficiency, but protein S assays are somewhat problematic and this needs re-assessment. There is no evidence of liver disease or vitamin K deficiency, which might also cause a low protein S. It has been 2 years since Mr. Coto most recent lipid profile. It is difficult to assess atherosclerotic risk based on this. PLAN: 1. Anticoagulation. No anticoagulation at this time. Based on the results of Mr. Coto thrombosis panel and his history, long-term anticoagulation is not needed. 2. Laboratory data. Will repeat protein S level, both antigen and clot. I will also repeat lipid profile this afternoon. 3. Education. I reviewed the signs and symptoms of pulmonary embolism with Mr. Garcia and his spouse and also reviewed the rationale for testing and rationale for the recommendation of no long-term anticoagulation at this time. Mr. Garcia verbalized understanding. 4. Prophylaxis. Mr. Garcia was instructed that he will need aggressive prophylaxis in the setting of either elective or nonelective surgery or immobility. Given his borderline protein S it is also important to avoid starting warfarin in the absense of a heparin or other parenteral anticoagulant. 5. Follow up. We will see Mr. Garcia on a p.r.n. basis. He was encouraged to call this office with any questions or concerns. ADDENDUM: Laboratory results 03/23/09: Cholesterol 197, Triglycerides 201, HDL 54, LDL 103 Protein S Antigen, free 95 (65-160), Protein S Clot 75 (76-151) I called Mr. Garcia with these results. His triglycerides and LDL are borderline high. I asked him todiscuss these results with his PCP but the LDL is acceptable for his level of cardiac risk and the hsCRP is normal. His Protein S remains borderline low. This does not change the above recommendations.He will need to be managed carefully around risk periods for venous thromboembolism. I saw and examined the patient with the nurse practitioner. I agree with the findings and plan of care documented in the nurse practitioner's note. Edited and Electronically Signed by Atiya Jfafe MD 04/02/2009 14:11 Electronically Reviewed by Suman Marquez APRN 04/02/2009 11:18 Suman Marquez APRN Atiya Jaffe MD adjunct latin professor - Suman Marquez APRN - ÁNGEL Job ID: [id number] Doc ID: [id number] cc: DO Bubba Hu MD Peter S Spector, MD documented in this encounter Plan of Treatment Upcoming Encounters Date Type Specialty Care Team Description 09/13/2022 Office Visit Cardiology Shelton Smith MD [address] [place] [address] [address] (Wo rk) documented as of this encounter Visit Diagnoses Not on filedocumented in this encounter Care Teams Miniature Set Designer Relationship Specialty Start Date End Date Danish Cao DO PCP - General 11/26/08 06/26/16 [address] [place] [place] [address] documented as of this encounter
--- OUTSIDE RECORDS SUMMARY | 2022-02-07 01:35 | XMS_ITS | Encounter Summary ---
:1955 Author Organization [facility] Address [address] [place] [address] Care Team Providers Name Role Phone NashDanish bland Primary Care Provider Encounter Details Date Type Department Care Team Description 10/29/2010 Anti-coag visit [facility] Yehuda Manriquez MD Cardiology - [place] [address] [place] [address] (Wo rk) Social History Tobacco [...] encounter Progress Notes Omari Mckeon MD - 10/31/2010 1625 EDT Omari Mckeon MD Valerie Leyva RN - 10/29/2010 1344 EDT Dose change. Message left for pt w/ instructions and requested to call back to report message received. documented in this encounter Plan of Treatment Upcoming Encounters Date Type Specialty Care Team Description 09/13/2022 Office Visit Cardiology Shelton Smith MD [address] [facility] [place], [place] [phone] (Wo rk) documented as of this encounter Procedures Procedure Name Priority Date/Time Associated Diagnosis Comme nts PROTIME Routine 10/29/2010 9:30 EDT Results for this procedure are i n the results section . documented in this encounter Results (ABNORMAL) PROTIME (10/29/2010 9:30 EDT) Pathologist Sig nature Protime, External [facility] INR, External 1.8 (A) [facility] Specimen Blood specimen (specimen) Performing Organization Address City/State/ZIP Code Phon e Number [facility] documented in this encounter Visit Diagnoses Not on filedocumented in this encounter Care Teams Leather Finisher Relationship Specialty Start Date End Date Danish Cao, PCP - General 11/26/08 06/26/16 [address] [place] [address] documented as of this encounter
--- OUTSIDE RECORDS SUMMARY | 2022-02-07 01:35 | XMS_ITS | Encounter Summary ---
:1955 Author Organization [facility] Address [address] [place] [address] Care Team Providers Name Role Phone Danish Cao DO Primary Care Provider Encounter Details Date Type Department Care Team Description 09/23/2010 Orders Only [facility] Radha Kaiser RN Primary hypercoagulable Hematology & [address] [place] [address] [facility] (CMS-HCC) (Primary Oncology - [place], [place] Dx) [place] [id number] [place] [address] Social History Tobacco Use Types Packs/Day Years [...] Take 1 Tab by 30 Tab 3 09/24/19 11 10/25/2010 tabletIndications: Primary mouth daily. hypercoagulable state (HCC-CMS) (HCC) documented in this encounter Plan of Treatment Upcoming Encounters Date Type Specialty Care Team Description 09/13/2022 Office Visit Cardiology Shelton Smith MD [address] [place] [address] [place] [address] (Wo rk) documented as of this encounter Visit Diagnoses Diagnosis Primary hypercoagulable state (HCC-CMS) (HCC) - Primary Primary hypercoagulable state documented in this encounter Care Teams Senior Sales Operations Manager Relationship Specialty Start Date End Date Danish Cao, PCP - General 11/26/08 06/26/16 [address] [place] [id number] documented as of this encounter
--- OUTSIDE RECORDS SUMMARY | 2022-02-07 01:35 | XMS_ITS | Encounter Summary ---
:1955 Author Organization [facility] Address [address] [place] [address] Care Team Providers Name Role Phone NashDanish bland Primary Care Provider Encounter Details Date Type Department Care Team Description 09/28/2010 Anti-coag visit [facility] Radha Kaiser RN Hematology & Oncology - [address] [place] [address] [address] [place] [address] Social History Tobacco Use Types Packs/Day Years [...] as of this encounter Patient Instructions Patient InstructionsRadha Kaiser RN - 09/28/2010 12:45 EST Pt advised to remain on Fondaparinux, increase warfarin to 7.5mg tonight 5mg all other days, recheckINR on 10/01/10 documented in this encounter Plan of Treatment Upcoming Encounters Date Type Specialty Care Team Description 09/13/2022 Office Visit Cardiology Shelton Smith MD [address] [place] [address] [address] [place] [address] (Wo rk) documented as of this encounter Procedures Procedure Name Priority Date/Time Associated Diagnosis Comme nts PROTIME Routine 09/28/2010 Results for thi s procedure are in the resu lts section. documented in this encounter Results (ABNORMAL) PROTIME (09/28/2010) Pathologist Sig nature Protime, External [facility] INR, External 1.5 (A) [facility] Specimen Blood specimen (specimen) Performing Organization Address City/State/ZIP Code Phon e Number [facility] documented in this encounter Visit Diagnoses Not on filedocumented in this encounter Care Teams Engineering Administrator Relationship Specialty Start Date End Date Danish Cao DO PCP - General 11/26/08 06/26/16 [address] [id number] documented as of this encounter
--- OUTSIDE RECORDS SUMMARY | 2022-02-07 01:35 | XMS_ITS | Encounter Summary ---
:1955 Author Organization [facility] Address [address] [place] [address] Care Team Providers Name Role Phone Danish Cao DO Primary Care Provider Encounter Details Date Type Department Care Team Description 10/13/2009 Abstract [facility] Nuris Cao DO Cardiology - [place] [address] [place] [address] [place], [place] [address] [phone] Social History Tobacco Use Types Packs/Day Years Used Date Never Assessed Sex Assigned at Date Recorded Not on file documented as of this encounter Plan of Treatment Upcoming Encounters Date Type Specialty Care Team Description 09/13/2022 Office Visit Cardiology Shelton Smith MD [address] [place] [address] [address] (Wo rk) documented as of this encounter Visit Diagnoses Not on filedocumented in this encounter Historical Medications This list may reflect changes made after this encounter. Medication Sig Dispensed Refills Start Date End Date WARFARIN SODIUM Take by mouth. As 0 (COUMADIN ORAL) Directed added in this encounter Care Teams Assistant Tennis Coach Relationship Specialty Start Date End Date Danish Cao DO PCP - General 11/26/08 06/26/[address] [place] [address] documented as of this encounter
--- OUTSIDE RECORDS SUMMARY | 2022-02-07 01:35 | XMS_ITS | Encounter Summary ---
:1955 Author Organization [facility] Address [address] [place] [address] Care Team Providers Name Role Phone NashDanish bland DO Primary Care Provider Reason for Visit Reason Onset Date Comments Appointment Related 08/20/2010 Has dates for Valerie castellanos or testing Encounter Details Date Type Department Care Team Description 08/20/2010 Telephone [facility] Rex Hendricks, Appointment Related Cardiology - [place] (Has dates for Valerie [address] [facility] [place] [facility] for testing) So [facility], [place] [address] [place] [address] (Wo rk) Social History Tobacco Use Types Packs/Day Years Used Date Never Assessed Sex Assigned at Date Recorded Not on file documented as of this encounter Miscellaneous Notes Telephone Encounter - Valerie Pitt RN - 08/20/2010 1050 EST Pt communicated this info to me via email and I updated facilities vat packer w/ updated dates for elective admission. Pt aware w/ message left via email. documented in this encounter Plan of Treatment Upcoming Encounters Date Type Specialty Care Team Description 09/13/2022 Office Visit Cardiology Shelton Smith MD [address] [facility] [address] [place] [address] (Wo rk) documented as of this encounter Visit Diagnoses Not on filedocumented in this encounter Care Teams Senior Marketing Associate Relationship Specialty Start Date End Date Danish Cao DO PCP - General 11/26/08 06/26/16 [address] [place] [id number] documented as of this encounter
--- OUTSIDE RECORDS SUMMARY | 2022-02-07 01:35 | XMS_ITS | Encounter Summary ---
:1955 Author Organization [facility] Address [address] [place] [address] Care Team Providers Name Role Phone NashDanish bland Primary Care Provider Encounter Details Date Type Department Care Team Description 12/01/2008 Before [facility] - Freddy Jaffe MD Converted Visit [facility] conversion [address] [facility] ([facility]) [address] [place] [address] [address], [place] [address] (Wo rk) Social History Tobacco Use Types Packs/Day Years Used Date Never Assessed Sex Assigned at Date Recorded Not on file documented as of this encounter Progress Notes Atiya Jaffe MD - 08/26/2009 0702 EST DIVISION OF HEMATOLOGY / ONCOLOGY December 01, 2008 To Whom It May Concern, I am writing his letter on behalf of Mr Braulio Garcia. It is my understanding that he has had denialof coverage for genetic testing for factor V Leiden and the prothrombin 90529T gene mutation fo rhishypercoagulable syndrome. I have never seen another insurance company deny coverage for these tests.I am writing this letter because Isaw him in hematology consultation today to evaluate him for his coagulation disorder, and I would like to obtain further tests of his clotting system to evaluate reasons for his hypercoagulable syndrome. I do not want to do this testing until he has approval from the[employer] and he is relieved of the current conflict in that regard. Briefly, Mr Garcia has a history of peripheral artery thromboembolus to his second digit in the summer of 2007. This occurred in association with atrial fibrillation. He was treated with anticoagulation. He most recently had very unusual excessive clotting around the wires and sheaths during an atrial f ibrillation ablation procedure, as documented in the letter to you recently by his tapper bit, Dr Rex Hendricks. Because of this, he had the factor V Leiden and the prothrombin gene mutation testing.I would add that the patientfather has a history of deep vein thrombosis and of sudden atthe age of 69 of unknown cause (which could have been pulmonary embolus). Therefore, in order to determine whether Mr Garcia needs continued oral anticoagulation or other treatment and what his future risk of thrombosis is, we need to characterize whether he has an inherited or acquired thrombophilic tendency. In addition to the two above completed tests, I would like to do testing for deficiencies of protein C, protein S, antithrombin, the presence of antiphospholipid syndrome, factor VIII and D-dimer assays and a high-sensitivity C-reactive protein. If I can be of any further assistance in helping you understand his medical condition, please feel free to contact me. Sincerely, Signed by Atiya Jaffe MD 12/03/2008 09:36 Jaqueline Jaffe, J[facility]SON HOSPITALrofessor of MedicineAtiya Jaffe MD - Atiya Jaffe MD - Job ID: [id number] Doc ID: [id number] cc: DO Rex Hu MD Braulio Garcia, [address] [place] [address]* documented in this encounter Plan of Treatment Upcoming Encounters Date Type Specialty Care Team Description 09/13/2022 Office Visit Cardiology Shelton Smith MD [address] [facility] [address] [place] [address] (Wo rk) documented as of this encounter Visit Diagnoses Not on filedocumented in this encounter Care Teams Construction Craft Laborer Relationship Specialty Start Date End Date Danish Cao DO PCP - General 11/26/08 06/26/16 [facility] [address] [place] [id number] documented as of this encounter
--- OUTSIDE RECORDS SUMMARY | 2022-02-07 01:35 | XMS_ITS | Encounter Summary ---
:1955 Author Organization [facility] Address [address] [place] [address] Care Team Providers Name Role Phone NashDansih bland Primary Care Provider Encounter Details Date Type Department Care Team Description 10/15/2010 Anti-co[address] [facility] Yehuda Manriquez MD Cardiology - [place] [address] [place] [address] (Wo rk) Social History Tobacco [...] encounter Progress Notes Keaton Manriquez MD - 10/15/2010 1714 EDT Keaton Manriquez MD, MD Valerie Leyva RN - 10/15/2010 1402 EDT Dose change. Message left for pt w/ instructions and requested to call back to report message received. documented in this encounter Plan of Treatment Upcoming Encounters Date Type Specialty Care Team Description 09/13/2022 Office Visit Cardiology Shelton Smith MD [address] [place], [place] [address] [address] [place] [address] (Wo rk) documented as of this encounter Procedures Procedure Name Priority Date/Time Associated Diagnosis Comme nts PROTIME Routine 10/15/2010 10:20 EDT Results for this procedure are i n the results section . documented in this encounter Results (ABNORMAL) PROTIME (10/15/2010 10:20 EDT) Pathologist Sig nature Protime, External [facility] INR, External 3.5 (A) [facility] Specimen Blood specimen (specimen) Performing Organization Address City/State/ZIP Code Phon e Number [facility] documented in this encounter Visit Diagnoses Not on filedocumented in this encounter Care Teams Websphere Commerce Architect Relationship Specialty Start Date End Date Danish Cao, PCP - General 11/26/08 06/26/16 [address] [place] [id number] documented as of this encounter
--- OUTSIDE RECORDS SUMMARY | 2022-02-07 01:35 | XMS_ITS | Encounter Summary ---
:1955 Author Organization [facility] Address [address] [place] [address] Care Team Providers Name Role Phone Danish Cao DO Primary Care Provider Encounter Details Date Type Department Care Team Description 01/26/2009 Orders Only [facility] Joshua Hendricks MD Cardiology - [facility] [address] [address] [address] [place], [place] [address] (Wo rk) Social History Tobacco Use Types Packs/Day Years Used Date Never Assessed Sex Assigned at Date Recorded Not on file documented as of this encounter Plan of Treatment Upcoming Encounters Date Type Specialty Care Team Description 09/13/2022 Office Visit Cardiology Shelton Smith MD [address] [place] [address] [address] [place] [address] (Wo rk) documented as of this encounter Visit Diagnoses Not on filedocumented in this encounter Care Teams Tower Climber Relationship Specialty Start Date End Date Danish Cao DO PCP - General 11/26/08 06/26/16 [address] [id number] documented as of this encounter
--- OUTSIDE RECORDS SUMMARY | 2022-02-07 01:35 | XMS_ITS | Encounter Summary ---
:1955 Author Organization [facility] Address [address] [place] [address] Care Team Providers Name Role Phone Abhinav Cao DO Primary Care Provider Encounter Details Date Type Department Care Team Description 08/26/2010 - Hospital Encounter [facility] Rex Hendricks 08/29/2010 Cardiac/Telemetry MD [facility] [address], [facility] [address] [place] [address] (Wo rk) Social History Tobacco Use Types Packs/Day Years Used Date Never Assessed Sex Assigned at Date Recorded Not on file documented as of this encounter Last Filed Vital Signs Vital Sign Reading Time Taken Comments Blood Pressure 116/76 08/29/2010 0726 EST Pulse 62 08/29/2010 0726 EST Temperature 35.7 ??C (96.3 ??F) 08/29/2010 0726 EST Respiratory Rate 16 08/29/2010 0726 EST Oxygen Saturation 98% 08/29/2010 0726 EST Inhaled Oxygen Concentration - - Weight 65.7 kg (144 lb 12.8 oz) 08/26/2010 1629 EST Height 177.8 cm (5' 10) 08/26/2010 1629 EST Body Mass Index 20.78 08/26/2010 1629 EST documented in this encounter Functional Status Cognitive Status Response Date of Assessment Because of a physical, mental, or emotional condition, do Ye s 08/26/2010 you have serious difficulty concentrating, remembering, or making decisions? (5 years old or older) documented as of this encounter Discharge Summaries Calixto Bianchi MD - 08/27/2010 1150 EST Discharge Summary Chief Complaint/Reason for Admission: Lightheadedness, fatigue and headache Principal/Final Diagnosis: Afib with RVR Principal Procedure: N/A Date: NA Secondary Procedures: Not applicable Condition at Discharge: Good Assessment at Discharge: Vital signs: Patient Vitals in the past 12 hrs: BP Temp Pulse Resp SpO2 08/29/10 0726 116/76 mmHg 35.7 ??C (96.3 ??F) 62 16 98 % 08/29/10 0537 115/70 mmHg 35.4 ??C (95.7 ??F) 60 12 99 % 08/28/10 2100 110/65 mmHg 36 ??C (96.8 ??F) - 16 97 % Hospital Course: This is a 54 year old male with hx of afib with RVR, ablation two years ago and poor tolerance of treatment with atenolol, calcium channel blockers, flecainide and amiodarone (hallucinations, nausea). Pt also has hx of hypercoaguable state with work up by Dr. Jaffe that revealed only relatively low protein S. CHADS2=[address] Jaffe's recommendation was for intermittent anticoagulation for transient periods of increased risk. His symptomatic afib episodes occur monthly for approximately 30 minutes. Cardiac MRI 03/02 shows 4.7 cm arotic root dilatation unchanged from 03/01 MRI. After a long discussion with Dr. Hendricks in the office he has decided to try antiarrythmic therapy. If his Atrial fibrillation is poorly controlled then the patient would like to try and pursue a second ablation. He was admitted and started on Tikosyn 500 mcg and metoprolol for rate control. He notes he was on the metoprolol in the past and tolerated it OK. While at [facility] on telemetry he has been in SR. He will follow up with Dr. Hendricks in 3 months or sooner if his symptoms persist. Diagnostic Studies: none Relevant Studies at Discharge: none Last Lab Results at Discharge: Creatinine: Lab Results Component Value Date CREATININE 0.98 08/26/2010 K: Lab Results Component Value Date K 4.5 08/26/2010 EKG: NSR normal Qtc Lab Results Component Value Date HGBA1C 5.4 08/26/2010 cc: ABHINAV CAO MD Doctor Unknown Rex Hendricks Attestation statement: I saw and examined the patient with the resident/fellow. I agree with the findings and plan of care documented in the resident's/fellow's note. Discharge Summary Completed: YES documented in this encounter Discharge Instructions InstructionsDeyanira Romero NP - 08/27/2010 Post Procedure Instructions: Not applicable Normal Observations: n/a Diet: Regular Weight Monitoring: Weigh and record your weight daily. If you note weight gain of 3 or more pounds in two days, please call your doctor. Activity: No restrictions Driving: May drive Activity Post Percutaneous Coronary Intervention: not applicable Skin/Wound Care: Resume normal skin care Care of Your Incision: Not applicable Bathing: No restrictions Pending Results: Not applicable Quality Measures for Acute Myocardial Infarction or Heart Failure Patients: Not applicable Symptoms to Call Your Doctor About: Chest pain Dizziness or fainting Increased leg or ankle swelling Pain, redness or swelling at the procedure site Rapid, irregular pulse Shortness of breath Weight gain of three or more pounds in two days Call your physician immediately if you experience any of the following: ?? Fever greater than 101, swelling, redness or signs of infection, including yellow discharge ?? Any increasing pain at the site of the wound ?? Numbness or tingling at a point below the wound ?? Skin rash ?? If you have not been able to urinate or 24 hours after leaving the hospital ?? Any recurrence of symptoms that brought you into the hospital initially: Chest pain, shortness ofbreath, dizziness ?? If you note any signs of bleeding, such as bulging under the skin the size of a golf ball, put direct pressure on the area and call your doctor immediately Medication Instructions: Your medications may be different than when you entered the hospital. Prior to leaving the hospital,please review all of your medications with the nurse at the time of discharge. Do not wait for mail order medications to come. Make sure you can take your medications immediately upon going home. Stent Medications: Not applicable Appointments: See Rex Garcia MD. You will be called with an appointment. Please call sooner if your symptoms persist. Cardiac Rehab Referral: The patient does not require a cardiac rehabilitation referral. Follow-up Services Contacted at Discharge: none Heart Failure, Health Risk and Disease Information: Stroke Risk Factors In the list below, your nurse has identified your risk factors for stroke. Atrial fibrillation These are the things you can do to reduce your risk for stroke and heart attack: ?? Don't smoke ?? Work with your doctor to keep your diabetes and high pressure under control ?? Have your cholesterol checked periodically ?? Exercise and be as active as possible ?? Eat a healthy diet and keep your weight under control You will find more guidance in your Stroke Education Packet. documented in this encounter Medications at Time of Discharge Medication Sig Dispensed Refills Start Date End Date ascorbic acid (VITAMIN Take 500 mg by mouth 0 C) 500 mg tablet daily. Multivitamins with Take 1 Tab by mouth 0 Minerals Tab daily. aspirin 325 mg Take 325 mg by mouth 0 08/26/2010 10/25/2010 tabletIndications: daily. Indications: platelet aggregation PLATELET AGGREGATION inhibition INHIBITION dofetilide (TIKOSYN) 500 Take 1 Cap by mouth 120 Cap 5 08/30/2010 mcg capsule every 12 hours. metoprolol (LOPRESSOR) Take 1 Tab by mouth 90 Tab 3 12/201009/20/2010 25 mg tablet at bedtime. metoprolol (LOPRESSOR) Take 1 Tab by mouth 90 Tab 3 12/201009/20/2010 50 mg tablet daily with breakfast. documented as of this encounter Ordered Prescriptions Prescription Sig Dispensed Refills Start Date End Date metoprolol (LOPRESSOR) 50 Take 1 Tab by mouth 90 Tab 3 0 08/29/2010 09/20/2010 mg tablet daily with breakfast. metoprolol (LOPRESSOR) 25 Take 1 Tab by mouth 90 Tab 3 0 08/29/2010 09/20/2010 mg tablet at bedtime. dofetilide (TIKOSYN) 500 Take 1 Cap by mouth 120 Cap 5 08/30/2010 mcg capsule every 12 hours. documented in this encounter Discharge Disposition Disposition Code Departure Means Destination Home or Self Care documented in this encounter Progress Notes Magdaleno Carrasquillo, RN - 08/29/2010 1220 EST D: Patient to be discharged per MD. A: IV removed, catheter tip intact. Telemetry removed. RN reviewed discharge instructions and medications with patient and . Patient received prescriptions and discharge instructions. R: Patient expressed good understanding of discharge instructions. They have no questions at this time. Patient dressed independently. Atiya Constantino RN - 08/29/2010 1206 EST Case Management Note; spoke with floor nurse Tim. Patient has Tikosyn from pharmacist and will take RX to his pharmacy to have ordered. Discharged without HH. Calixto Kothari MD - 08/28/2010 0837 EST Braulio Garcia is a 54 y.o. male, Admitted for HOME/ A [facility] ADMIT FOR DOFETILIDE INITIATION, on 08/26/2010 Doing well, no cp, mild headache Complaints: none Events O/N: none Current facility-administered medications Medication Dose Route Frequency Provider Last Rate Last Dose ??? metoprolol (LOPRESSOR) tablet 50 mg 50 mg Oral DAILY WITH BREAKFAST Deyanira Romero NP Last Dose: 50 mg at 08/27/10 1117 ??? metoprolol (LOPRESSOR) tablet 25 mg 25 mg Oral QHS Deyanira Romero NP Last Dose: 25 mg at 08/27/10 2308 ??? acetaminophen (TYLENOL) tablet 650 mg 650 mg Oral Q4H PRN Deyanira Romero NP Last Dose: 650 mg at 08/27/10 1728 ??? ascorbic acid (VITAMIN C) tablet 500 mg 500 mg Oral DAILY Atiya Thomason MD Last Dose: 500 mg at 08/27/10914 ??? aspirin tablet 325 mg 325 mg Oral DAILY Atiya Thomason MD Last Dose: 325 mg at 08/27/10914 ??? Multivitamins with Minerals tablet 1 Tab 1 Tab Oral DAILY Atiya Thomason MD Last Dose: 1 Tab at 08/27/10914 ??? sodium chloride 0.9 % flush 3 mL 3 mL Intravenous Q8H Atiya Thomason MD Last Dose: 3 mL at 08/28/10 0000 ??? dofetilide (TIKOSYN) capsule 500 mcg 500 mcg Oral Q12H Atiya Thomason MD Last Dose: 500 mcg at 08/27/102114 Blood pressure 115/68, pulse 61, temperature 35.6 ??C (96.1 ??F), resp. rate 16, height 177.8 cm (70), weight 65.681 kg (144 lb 12.8 oz), SpO2 99.00%. Gen: A/0 Lungs: clear CV: Rrr, s1s2 normal EXT: no edema EKG: sr QTc: 480 TELE: sr Assesment: AF, on tikosyn. QT borderline, but OK for now Plan: cont tikosyn at 500 bid, Check QT tonight, if prolonged > 500, drop to 250 bid Probable d/c tomorrow. ayshree Pete - 08/27/2010 1345 EST Brief Case Management Assessment Reason for Hospitalization: Initiated on defetilide for a-fib Current Living Arrangements: Lives with in [facility], close to [place]. Daughter lives in [facility]. 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 Pharmicist aware of need for seven tabs to go with patient at discharge. Insurance has $40 co-pay for med. Case Management Actions (completed and planned): No needs identified at this time, will continue to follow until discharge. Jayshree Pete RN BSN documented in this encounter H&P Notes Calixto Bianhci MD - 08/26/2010 1351 EST EP CARDIOLOGY ADMIT H&P NOTE Chief complaint: -a-fib -direct admit for dofetilide HISTORY OF PRESENT ILLNESS: Patient is a 54 y.o. male hx paroxysmal a-fib s/p ablation 2007 who has been followed by Dr. Worthington directly admitted from home for initiation of dofetilide therapy. He has recurrent episodes of a-fib with RVR, quite frequent at once per month, and appears to be associated with intermittent symptoms of dizziness and headache. She failed or was intolerant of medical therapy of atenolol, flecainide and amiodarone. Per Dr. Hendricks, dofetilide is preferred over dronadrone or repeat ablation at thistime, especially concerning that he has a hypercoagulable state (relatively low protein S) and apparently had thrombus formation on the venous wires/sheats during last ablation procedure. Pt denies dyspnea, orthopnea, PND, palpitation, presyncope, syncope, cough, fever, chills, abdominalpain, n/v, d/c, or peripheral edema. No past medical history on file. No past surgical history on file. MEDICATIONS PRIOR TO ADMISSION: No prescriptions prior to admission No current facility-administered medications on file prior to encounter. No current outpatient prescriptions on file prior to encounter. \ CURRENT MEDICATIONS: @RRSCHMED@ @[email or web address]@ ALLERGIES: Allergies Allergen Reactions ??? Atenolol ??? Flecainide Other (See Comments) Hallucinations ??? Other - See Comments Calcium Channel Blockers ??? Amiodarone ??? Keflex (Cephalexin) Nausea Only History Substance Use Topics ??? Smoking status: Not on file ??? Smokeless tobacco: Not on file ??? Alcohol Use: Not on file No family history on file. REVIEW OF SYSTEMS: A ten point review of systems was performed. Pertinent positives are listed in HPI, all others are negative. OBJECTIVE: There were no vitals taken for this visit. No intake or output data in the 24 hours ending 08/26/10 1351 General: No acute distress Psychiatric: Alert, fully oriented, pleasant conversant Head: Normocephalic, without obvious abnormality, atraumatic. Eyes: Conjunctivae/corneas clear. PERRL, EOMs intact. Sclerae anicteric ENT: Mucus membranes moist. Neck: Supple, symmetrical, trachea midline, no carotid bruit and no JVD. Lungs: Clear to auscultation bilaterally. Chest wall: No tenderness or deformity. Heart: RRR, S1, S2 normal, no murmur, click, rub or gallop. Abdomen: Soft, non-tender non-distention. Extremities: No clubbing, cyanosis or edema. Pulses: 2+ and symmetric all extremities. Skin: No rashes or lesions Neurologic: Grossly intact, non-focal, normal strength and sensation throughout. ECG: NSR, non-ischemic ST-T changes Data ReviewCBC: Lab Results Component Value Date WBC 11.44* 08/27/2008 RBC 4.49 08/27/2008 HGB 13.9 08/27/2008 HCT 40.0 08/27/2008 MCV 89 08/27/2008 MCH 30.9 08/27/2008 MCHC 34.7 08/27/2008 PLT 262 08/27/2008 BMP: Lab Results Component Value Date NA 138 08/26/2010 K 4.3 08/26/2010 CL 104 08/26/2010 CO2 27 08/26/2010 BUN 17 08/27/2008 CREATININE 0.82 08/27/2008 CALCIUM 9.3 08/26/2010 MG 2.3 08/26/2010 LABALBU 4.3 03/16/2009 Coagulation: Lab Results Component Value Date PROTIME 17.0* 08/27/2008 INR 1.3* 08/27/2008 PTT 43* 08/25/2008 Cardiac markers: No results found for this basename: CKMBINDEX:3, TROPONINI:3 IMPRESSION: 54 yo man with; #1 paroxysmal a-fib, s/p ablation #2 hypercoagulable state (relatively low protein S), followed by Dr. Jaffe #3 aortic root dilation, stable at 4.7 cm on last CMR 03/18/2010 Paroxysmal a-fib s/p ablation, now frequent recurrent, with intermittently symptomatic of dizziness and headache, intolerant of medical therapy of atenolol, flecanide and amiodarone. CHADS2=0, and negative ischemic workup on recent stress Echo. Start ECG shows NSR with QTc at 426 ms. PLAN: -renal and electrolytes -start dofetilide 500mcg bid (adjust based on renal) -follow up on ECG/QTC -start metoprolol 50 am, 25 pm. -continue ASA -pt has not been on coumadin since February [address]. [address] Hendricks's clinic note 08/12/2010, it is beingdiscussed between him and Dr. Jaffe whether patient needs to be back on anticoagulation, given a-fib in the setting of questionable hypercoagulable state. This issue needs further clarification. D/W Aby Attestation statement: I saw and examined the patient with the resident/fellow. I agree with the findings and plan of care documented in the resident's/fellow's note. documented in this encounter Procedure Notes InpatientPhysician MD - 08/26/2010 0000 ESTAssociated Order(s): ECG REPORT - SCANNED; ECG REPORT - SCANNED Physician Alford MD - 08/26/2010 0000 ESTAssociated Order(s): ECG REPORT - SCANNED; ECG REPORT - SCANNED Inpatient, MD Doc - 08/26/2010 0000 ESTAssociated Order(s): ECG REPORT - SCANNED; ECG REPORT - SCANNED InpatientPhysician MD - 08/26/2010 0000 ESTAssociated Order(s): ECG REPORT - SCANNED; ECG REPORT - SCANNED Physician Alford MD - 08/26/2010 0000 ESTAssociated Order(s): ECG REPORT - SCANNED; ECG REPORT - SCANNED Inpatient, MD Doc - 08/26/2010 0000 ESTAssociated Order(s): ECG REPORT - SCANNED; ECG REPORT - SCANNED InpatientPhysician MD - 08/26/2010 0000 ESTAssociated Order(s): ECG REPORT - SCANNED; ECG REPORT - SCANNED InpatientPhysician MD - 08/26/2010 0000 ESTAssociated Order(s): ECG REPORT - SCANNED; ECG REPORT - SCANNED documented in this encounter Miscellaneous Notes Plan of Care - Calixto Vance RN - 08/29/2010 0241 EST Problem: PSYCHOSOCIAL Goal: Demonstrates Ability To [place] With Hospitalization D - Received patient for care @ 19:00 in [facility] [place] Patient without voiced complaints. at bedside.Patient remains in sinus rhythm with qt interval remaining within normal limits. AR - fifth dose of tikosyn provided. Plan is for probable discharge later today after sixth dose. lan of Care - Anushka Swain - 08/28/2010 1314 EST 1315 D: Patient admitted for dofetilide treatment due to arrhythmia. QT is .48 at this time. Pt remains in NSR since admit. A: EKG completed per protocol. Patient on continuous tele monitoring for rhythm changes. Labs collected per protocol. R: RN will continue to monitor for rhythm changes. Pt walking around unit comfortably and without difficulty. lan of Care - Calixto Vance RN - 08/28/2010 0249 EST Problem: PSYCHOSOCIAL Goal: Demonstrates Ability To [place] With Hospitalization D - Received patient for care @ 19:00 in [facility] [place] Patient without any voiced complaints. Patient tolerated both tikosyn (third dose) & lopressor with an hour spacing between. AR - Patient sleeping on rounds. Remains in sinus rhythm. ekg to be approved for am dose of tikosyn. lan of Shoaib Payne - 08/27/2010 1751 EST Active Multi-Disciplinary problems: KNOWLEDGE DEFICIT [358460] (08/26/10) HOSPITAL ORIENTATION/SAFETY [108901] (08/26/10) CIRCULATORY STATUS [[id number]] (08/27/10) Data: patient has question regarding new meds-dofetilide and cardizem-ability to obtain from his pharmacy and insurance coverage Action: patient given information on dofetilide,, consult to case management, MD visited patient to answer questions Response: patient's cardizem changed to metoprolol per MD, information regarding insurance and pharmacy questions given to pt per case management, patient reading info on meds Shoaib Vilchis RN 08/27/2010 17:51 lan of Alysha Giordano - 08/27/2010 0307 EST Problem: CIRCULATORY STATUS Goal: Patient Has Stable Vital Signs And Fluid Balance D: Patient admitted for dofetilide treatment due to arrhythmia. A: EKG completed per protocol. Patient on continuous tele monitoring for rhythm changes. Labs collected per protocol. R: RN will continue to monitor for rhythm changes. lan of Care Shoaib Dickerson - 08/26/2010 1718 EST D: Patient arrived to [place] [address] room [facility]. Vital signs noted, and tele applied. Patient stable withheart rate in 70s. Patient denies chest pain, SOB, and discomfort. A; Assessment as documented in flow sheet. Admission database completed. Patient orientated to room,equipment, and care plan. R: Continue to monitor and document per protocol. canned Note-Null - Inpatient, MD Doc - 08/26/2010 0000 EST canned Note-Null - Inpatient, MD Doc - 08/26/2010 0000 EST canned Note-Null - Inpatient, MD Doc - 08/26/2010 0000 EST documented in this encounter Plan of Treatment Upcoming Encounters Date Type Specialty Care Team Description 09/13/2022 Office Visit Cardiology Shelton Smith MD [address] [place], [place] [address] [address] [place] [address] (Wo rk) documented as of this encounter Procedures Procedure Name Priority Date/Time Associated Comments Diagnosis ECG REPORT - SCANNED 09/14/2010 10:14 Res ults for this EST procedure are i n the results section. ECG REPORT - SCANNED 09/14/2010 10:14 Res ults for this EST procedure are i n the results section. ECG REPORT - SCANNED 09/01/2010 10:46 Res ults for this EST procedure are i n the results section. ECG REPORT - SCANNED 08/31/2010 11:58 Res ults for this EST procedure are i n the results section. ECG REPORT - SCANNED 08/31/2010 11:57 Res ults for this EST procedure are i n the results section. ECG REPORT - SCANNED 08/31/2010 11:57 Res ults for this EST procedure are i n the results section. ECG REPORT - SCANNED 08/31/2010 11:57 Res ults for this EST procedure are i n the results section. ECG REPORT - SCANNED 08/31/2010 11:57 Res ults for this EST procedure are i n the results section. EKG 12-LEAD JORGE 08/29/2010 11:17 EST EKG 12-LEAD Routine 08/29/2010 0:06 EST POST DOFETILIDE EKG Routine 08/28/2010 22:44 EST EKG 12-LEAD Routine 08/28/2010 0:07 EST POST DOFETILIDE EKG Routine 08/27/2010 22:03 EST EKG 12-LEAD Routine 08/27/2010 10:01 EST HOLD PURPLE TOP Routine 08/27/2010 6:09 Results f or this EST procedure are i n the results section. LIPID PROFILE Routine 08/27/2010 6:09 Results for this (INCLUDES EST procedure are i n CHOLESTEROL, the results TRIGLYCERIDES, HDL, section. LDL) EKG 12-LEAD Routine 08/27/2010 0:07 EST POST DOFETILIDE EKG Routine 08/26/2010 20:06 EST SCREENING GLUCOSE Routine 08/26/2010 18:04 Result s for this EST procedure are i n the results section. PTT Routine 08/26/2010 18:04 Results for this EST procedure are i n the results section. PROTIME Routine 08/26/2010 18:04 Results for this EST procedure are i n the results section. COMPLETE BLOOD COUNT Routine 08/26/2010 18:04 Res ults for this EST procedure are i n the results section. BUN Routine 08/26/2010 18:04 Results for this EST procedure are i n the results section. MAGNESIUM Routine 08/26/2010 18:04 Results for this EST procedure are i n the results section. HEMOGLOBIN A1C Routine 08/26/2010 18:04 Results f or this EST procedure are i n the results section. CREATININE Routine 08/26/2010 18:04 Results for this EST procedure are i n the results section. ELECTROLYTES Routine 08/26/2010 18:04 Results for this EST procedure are i n the results section. INPATIENT ADD-ON STAT 08/26/2010 17:45 Results for this EST procedure are i n the results section. MAGNESIUM STAT 08/26/2010 16:48 Results for this EST procedure are i n the results section. CREATININE Routine 08/26/2010 16:48 Results for this EST procedure are i n the results section. CALCIUM STAT 08/26/2010 16:48 Results for this EST procedure are i n the results section. ELECTROLYTES STAT 08/26/2010 16:48 Results for this EST procedure are i n the results section. EKG 12-LEAD STAT 08/26/2010 16:26 EST documented in this encounter Results ECG REPORT - SCANNED (09/14/2010 10:14 EST) Specimen Narrative This result has an attachment that is no t available. Procedure Note Inpatient, MD Doc - 08/26/2010 0: 00 EST ECG REPORT - SCANNED (09/14/2010 10:14 EST) Specimen Narrative This result has an attachment that is no t available. Procedure Note Inpatient, MD Doc - 08/26/2010 0: 00 EST ECG REPORT - SCANNED (09/01/2010 10:46 EST) Specimen Narrative This result has an attachment that is no t available. Procedure Note InpatientPhysician MD - 08/26/2010 0: 00 EST ECG REPORT - SCANNED (08/31/2010 11:58 EST) Specimen Narrative This result has an attachment that is no t available. Procedure Note Inpatient, MD Doc - 08/26/2010 0: 00 EST ECG REPORT - SCANNED (08/31/2010 11:57 EST) Specimen Narrative This result has an attachment that is no t available. Procedure Note Inpatient, MD Doc - 08/26/2010 0: 00 EST ECG REPORT - SCANNED (08/31/2010 11:57 EST) Specimen Narrative This result has an attachment that is no t available. Procedure Note Inpatient, MD Doc - 08/26/2010 0: 00 EST ECG REPORT - SCANNED (08/31/2010 11:57 EST) Specimen Narrative This result has an attachment that is no t available. Procedure Note Inpatient, MD Doc - 08/26/2010 0: 00 EST ECG REPORT - SCANNED (08/31/2010 11:57 EST) Specimen Narrative This result has an attachment that is no t available. Procedure Note InpatientPhysician MD - 08/26/2010 0: 00 EST HOLD PURPLE TOP (08/27/2010 6:09 EST) Hold Purple Top EDTA for hematology will be discarded after 48 hours, differential not available after 12 [facility] hours. Specimen Performing Organization Address City/State/ZIP Code Phon e Number [facility] [address] [place] [address] SERVICES [facility] [address] [place] [address] LIPID PROFILE (INCLUDES CHOLESTEROL, TRIGLYCERIDES, HDL, LDL) (08/27/2010 6:09 EST) Cholesterol 177Comment: mg/dl [facility] RODRIGUEZ Desirable:<200 LAB Borderline High:200-239 High:>cv=625 Triglycerides 83 35 - 160 mg/dl [facility] HDL 58Comment: Low:<40 mg/dl [facility] High(Desirable):>or LAB =60 LDL, Calculated 102 mg/dl [facility] R[facility] Comment: LAB Optimal:<100 Above optimal:100-129 Borderline High:130 -159 High:160-189 Very High:>yg=214 Chol/HDL Ratio 3.1 [facility] Fasting? Unknown [facility] Specimen Blood specimen (specimen) Performing Organization Address City/State/ZIP Code Phon e Number [facility] [address] [place] [address] SERVICES [facility] [address] [place] [address] MAGNESIUM (08/26/2010 18:04 EST) Pathologist Sig nature Magnesium 2.3 1.7 - 2.8 mg/dl [facility] Specimen Blood specimen (specimen) Performing Organization Address City/[facility]/ZIP Code Phon e Number [facility] [address] [place] [address] SERVICES [facility] [address] [place] [address] PTT (08/26/2010 18:04 EST) Pathologist Sig nature PTT 33Comment: Therapeutic 24 - 35 secs [facility] Heparin range: 60-90 seconds Specimen Blood specimen (specimen) Performing Organization Address City/[facility]/ZIP Code Phon e Number [facility] [address] [place] [address] SERVICES [facility] [address] [place] [address] PROTIME (08/26/2010 18:04 EST) Pro Time 12.3 9.9 - 13.1 [facility] secs I.N.R. 1.1 0.9 - 1.1 [facility] Comment: Ratio ??Moderate Intensity Coumadin INR = 2.0-3.0 Adjustmen ts in anticoagulant therapy dose should be based upon the INR and NOT the Pro Time. ?? Specimen Blood specimen (specimen) Performing Organization Address [facility] Phon e Number [facility] [address] [place] [address] SERVICES [facility] [address] [place] [address] HEMAGRAM (08/26/2010 18:04 EST) Pathologist Sig nature WBC 5.00 4.0 - 10.4 K/cmm [facility] RBC 4.56 4.36 - 5.78 M/cmm [facility] Hemoglobin 14.3 13.8 - 17.3 gm/dl [facility] HCT 41.2 39.5 - 50.2 % [facility] MCV 90 81 - 95 fl [facility] MCH 31.3 27.6 - 33.0 pg [facility] MCHC 34.6 32.8 - 36.4 gm/dl [facility] PLT 302 141 - 320 K/cmm [facility] RDW-CV 13.0 11.8 - 14.1 % [facility] Specimen Blood specimen (specimen) Performing Organization Address City/[facility]/ZIP Code Phon e Number [facility] [address] [place] [address] SERVICES [facility] [address] [place] [address] HEMOGLOBIN A1C (08/26/2010 18:04 EST) Hemoglobin A1C 5.4 % [facility] Comment: Reference Range: <5.7% Normal 5.7-6.4% Increased risk for diabetes =>6.5% Diagnostic for diabetes (if confirmed) ?? The A1 c goal for non adults in general is <7%. ?? The A1c goal for selected patients may be significantly lower than 7% if this can be achieved without signific ant hypoglycemia or other adverse effects of treatment. Est Avg Glucose 108Comment: eAG mg/dl [facility] represents the A1c result expressed as average glucose in mg/dl. Specimen Blood specimen (specimen) Performing Organization Address [facility] Phon e Number [facility] [address] [place] [address] SERVICES [facility] [address] [place] [address] SCREENING GLUCOSE (08/26/2010 18:04 EST) Pathologist Sig nature Glucose, Screening 79 70 - 100 mg/dl [facility] Specimen Blood specimen (specimen) Performing Organization Address [facility] Phon e Number [facility] [address] [place] [address] SERVICES [facility] [address] [place] [address] CREATININE (08/26/2010 18:04 EST) Pathologist Sig nature Creatinine 0.98 0.7 - 1.5 mg/dl [facility] GFR, Calculated >60 ml/min/1.73m2 [facility] Specimen Blood specimen (specimen) Performing Organization Address [facility]/ZIP Code Phon e Number [facility] [address] [place] [address] SERVICES [facility] [address] [place] [address] BUN (08/26/2010 18:04 EST) Pathologist Sig nature BUN 18 10 - 26 mg/dl [facility] Specimen Blood specimen (specimen) Performing Organization Address [facility]/ZIP [facility] [place] Number [facility] [address] [place] [address] SERVICES [facility] [address] [place] [address] ELECTROLYTES (08/26/2010 18:04 EST) Pathologist Sig nature Sodium 136 136 - 145 mEq/L [facility] Potassium 4.5 3.5 - 5.0 mEq/L [facility] Chloride 104 96 - 110 mEq/L [facility] CO2 30 24 - 32 mEq/L [facility] Specimen Blood specimen (specimen) Performing Organization Address [facility] Code Phon e Number [facility] [address] [place] [address] SERVICES [facility] [address] [place] [address] INPATIENT ADD-ON (08/26/2010 17:45 EST) Pathologist Sig nature Tests to be added Creatinine [facility] Number for problems [id number] [facility] Accession number [id number] [facility] Specimen Performing Organization Address [facility]/ZIP Code Phon e Number [facility] [address] [place] [address] SERVICES [facility] [address] [place] [address] CREATININE (08/26/2010 16:48 EST) Pathologist Sig nature Creatinine 0.90 0.7 - 1.5 mg/dl [facility] GFR, Calculated >60 ml/min/1.73m2 [facility] Specimen Performing Organization Address [facility] Code Phon e Number [facility] [address] [place] [address] SERVICES [facility] [address] [place] [address] CALCIUM (08/26/2010 16:48 EST) Pathologist Sig nature Calcium 9.3 8.5 - 10.5 mg/dl [facility] Calculated Calcium 9.8 8.5 - 10.5 mg/dl [facility] Specimen Blood specimen (specimen) Performing Organization Address [facility]/ZIP [facility] Phon e Number [facility] [address] [place] [address] SERVICES [facility] [address] [place] [address] MAGNESIUM (08/26/2010 16:48 EST) Pathologist Sig nature Magnesium 2.3 1.7 - 2.8 mg/dl [facility] Specimen Blood specimen (specimen) Performing Organization Address City/State/ZIP Code Phon e Number [facility] [address] [place] [address] SERVICES [facility] [address] [place] [address] ELECTROLYTES (08/26/2010 16:48 EST) Pathologist [facility] nature Sodium 138 136 - 145 mEq/L [facility] Potassium 4.3 3.5 - 5.0 mEq/L [facility] Chloride 104 96 - 110 mEq/L [facility] CO2 27 24 - 32 mEq/L [facility] Specimen Blood specimen (specimen) Performing Organization Address City/State/ZIP Code Phon e Number [facility] [address] [place] [address] SERVICES [facility] [address] [place] [address] documented in this encounter Visit Diagnoses Not on filedocumented in this encounter Administered Medications Inactive Administered Medications - up to 3 most recent administrations Medication Order MAR Action Action Date Dose Rate Site acetaminophen (TYLENOL) tablet 650 Given 08/27/2010 17:28 EST 65 0 mg mg 650 mg, oral, EVERY 4 HOURS PRN, Starting on Mon08/27/10 at 1152, Until 08/29/10 at 1438, Pain, Routine Given 08/27/2010 11:58 EST 650 mg ascorbic acid (VITAMIN C) tablet 500 mg Given 08/29/2010 8:32 EST 500 mg 500 mg, oral, DAILY, First dose on Kiah 08/26/10 at 1815, Until Discontinued, Routine Given 08/28/2010 9:30 EST 500 mg Given 08/27/2010 9:15 EST 500 mg aspirin tablet 325 mg Given 08/29/2010 8:32 EST 325 mg 325 mg, oral, DAILY, First dose on Kiah 08/26/10 at 1815, Until Discontinued, Routine Given 08/28/2010 9:30 EST 325 mg Given 08/27/2010 9:15 EST 325 mg DILTiazem (CARDIZEM SR) SR capsule 120 m g Given 08/26/2010 20:59 EST 120 mg 120 mg, oral, DAILY, First dose on Kiah 08/26/10 at 1815, Until Discontinued, Routine dofetilide (TIKOSYN) capsule 500 mcg Given 08/29/2010 9:00 EST 500 mcg 500 mcg, oral, EVERY 12 HOURS, First dose on Kiah 08/26/10 at 2100, Until Discontinued, Routine Given 08/28/2010 21:30 EST 500 mcg Given 08/28/2010 9:30 EST 500 mcg metoprolol (LOPRESSOR) tablet 25 mg Given 08/28/2010 21:00 EST 25 mg 25 mg, oral, AT BEDTIME, First dose on Mon08/27/10 at 2100, Until Discontinued, Routine Given 08/27/2010 23:08 EST 25 mg metoprolol (LOPRESSOR) tablet 50 mg Given 08/29/2010 8:32 EST 50 mg 50 mg, oral, DAILY WITH BREAKFAST, First dose on Mon08/28/10 at 0800, Until Discontinued, Routine Given 08/28/2010 9:30 EST 50 mg Given 08/27/2010 11:17 EST 50 mg Multivitamins with Minerals tablet 1 Tab Given 08/29/2010 8:33 EST 1 Tablet 1 Tablet, oral, DAILY, First dose on Kiah 08/26/10 at 1815, Until Discontinued, Routine Given 08/28/2010 9:30 EST 1 Tablet Given 08/27/2010 9:15 EST 1 Tablet sodium chloride 0.9 % flush 3 mL Given 08/29/2010 8:33 EST 10 mL 3 mL, intravenous, EVERY 8 HOURS, First dose on Kiah 08/26/10 at 1815, Until Discontinued, Routine Given 08/29/2010 0:00 EST 3 mL Given 08/28/2010 16:00 EST 3 mL documented in this encounter Historical Medications This [...] Indications: platelet aggregation PLATELET AGGREGATION inhibition INHIBITION added in this encounter Active and Recently Administered Medications Times are shown in EST. Scheduled Medication Order 08/27/2010 08/28/2010 08/29/2010 ascorbic acid (VITAMIN C) tablet 500 mg (CANCELED) 091 5 (Given - Provider: Shoaib Vilchis) 0930 (Given - Provider: Anushka Swain) 0832 (Given - Provider: Magdaleno Carrasquillo RN) 500 mg, Oral, DAILY, First dose on Kiah 08/26/10 at 1815, Until Dis continued aspirin tablet 325 mg (CANCELED) 0915 (Given - Provider: Dae Vilchis) 0930 (Given - Provider: Anushka Swain) 0832 (Given - Provider: Magdaleno Carrasquillo RN) 325 mg, Oral, DAILY, First dose on Kiah 08/26/10 at 1815, Until Dis continued dofetilide (TIKOSYN) capsule 500 mcg 0940 (Given - Pro vider: Shoaib Vilchis)2114 (Given - Provider: Calixto Vance RN) 0930 (Given - Provider: Anushka Swain)2129 (Given - Provider: Calixto Vance RN) 0900 (Given - Provider: Magdaleno Carrasquillo RN) 500 mcg, Oral, EVERY 12 HOURS, First dos e on Kiah 08/26/10 at 2100, Until Discontinued metoprolol (LOPRESSOR) tablet 25 mg 2307 (Given - Provider: Calixto Vance RN) 2100 (Given - Provider: Calixto Vance RN) 25 mg, Oral, AT BEDTIME, First dose on Mon08/27/10 at 2100, Until Discontinued metoprolol (LOPRESSOR) tablet 50 mg 111 (Given - Prov ider: Shoaib Vilchis - Comment: cardizem not given-metoprolol given instead) 0930 (Given - Provider: Anushka Swain) 0832 (Given - Provider: Magdaleno foley RN) 50 mg, Oral, DAILY WITH BREAKFAST, First dose on 08/28/10 at 0800, Until Discontinued Multivitamins with Minerals tablet 1 Tab (CANCELED) 09 15 (Given - Provider: Shoaib Vilchis) 0930 (Given - Provider: Anushka Swain) 0833 (Given - Provider: Magdaleno Carrasquillo RN) 1 Tab, Oral, DAILY, First dose on Kiah 08/26/10 at 1815, Until Disc ontinued sodium chloride 0.9 % flush 3 mL (CANCELED) 0003 (Give n - Provider: Alysha Treviño)0916 (Given - Provider: Shoaib Vilchis)1600 (Given - Provider: Shoaib Vilchis) 0000 (Given - Provider: Calixto Vance, RN)0933 (Given - Provider: Anushka Swain)1600 (Given - Provider: Anushka Swain) 0000 (Given - Provider: Calixto Vance, RN)0833 (Given - Provider: Magdaleno Carrasquillo, ROBBY) 3 mL, Intravenous, EVERY 8 HOURS, First dose on Kiah 08/26/10 at 1815, Until Discontinued PRN Medication Order 08/27/2010 08/28/2010 08/29/2010 acetaminophen (TYLENOL) tablet 650 mg (CANCELED) 1158 (Given - Provider: Shoaib Vilchis)1728 (Given - Provider: Shoaib Vilchis) 650 mg, Oral, EVERY 4 HOURS PRN, Startin g 08/27/10 at 1152, Until 08/29/10 at 1438, Pain documented in this encounter Orders Medications Ordered That Might Not Have Count Last Ord ered Date First Ordered Date Been Administered acetaminophen (TYLENOL) 325 mg tablet 1 08/27/2010 metoprolol XL (TOPROL-XL) tablet 50 mg 1 1 pneumococcal vaccine (PPV23) (PNEUMOVAX) 1 011 injection 0.5 mL EKG Orders Without Results Count Last Ordered Date Fir st Ordered Date EKG 12-LEAD 6 08/29/2010 08/26/2010 POST DOFETILIDE EKG 3 08/28/2010 08/26/2010 Consult Count Last Ordered Date First Ordered Date CONSULT CASE MANAGEMENT 1 08/27/2010 IV Count Last Ordered Date First Ordered Date IV REQUEST 1 08/26/2010 Admission Count Last Ordered Date First Ordered Date NOTIFY PPS OF DISCHARGE COMPLETE 1 08/29/2010 ADMIT TO INPATIENT 1 08/26/2010 NOTIFY PPS OF ROOM CHANGE COMPLETE 1 08/26/2010 Discharge Count Last Ordered Date First Ordered Date DISCHARGE PATIENT 1 08/29/2010 documented in this encounter Care Teams Wall Insulation Sprayer Relationship Specialty Start Date End Date Abhinav Cao, PCP - General 11/26/08 06/26/[address] [place] [address] documented as of this encounter
--- OUTSIDE RECORDS SUMMARY | 2022-02-07 01:35 | XMS_ITS | Encounter Summary ---
:1955 Author Organization [facility] Address [address] [place] [address] Care Team Providers Name Role Phone Unavailable Primary Care Provider Unavailable Encounter Details Date Type Department Care Team Description 09/11/2008 Hospital Encounter [facility] - Rex Hendricks Maple conversion MD 111 [facility] [address] [phone] [facility] 1 [place] [address] (Wo rk) Social History Tobacco Use Types Packs/Day Years Used Date Never Assessed Sex Assigned at Date Recorded Not on file documented as of this encounter Discharge Disposition Disposition Code Departure Means Destination Auto Discharge documented in this encounter Plan of Treatment Upcoming Encounters Date Type Specialty Care Team Description 09/13/2022 Office Visit Cardiology Shelton Smith MD [address] [facility] [address] [address] (Wo rk) documented as of this encounter Visit Diagnoses Not on filedocumented in this encounter
--- OUTSIDE RECORDS SUMMARY | 2022-02-07 01:35 | XMS_ITS | Encounter Summary ---
:1955 Author Organization [facility] Address [address] [place] [address] Care Team Providers Name Role Phone Danish Cao DO Primary Care Provider Encounter Details Date Type Department Care Team Description 11/09/2010 Orders Only [facility] Latoya Sy, At rial fibrillation ([facility]) (Primary Dx); Cardiology - Sayra SOYBEAN GROWER A-fib ([facility]) [address] Sanchez [address] [place], [place] [address] [place] [address], [facility] 1 [place] [address] (Jewell rothman) Social History Tobacco Use Types Packs/Day Years [...] Visit Cardiology Shelton Smith MD 130 [facility] [address] [place] [address] (Jewell rk) documented as of this encounter Visit Diagnoses Diagnosis Atrial fibrillation (HCC-CMS) (HCC) - Pr imary Atrial fibrillation A-fib ([facility]-CMS) (HCC) Atrial fibrillation documented in this encounter Care Teams Grain Distributor Relationship Specialty Start Date End Date Danish Cao, PCP - General 11/26/08 06/26/[address] [place] [address] documented as of this encounter
--- OUTSIDE RECORDS SUMMARY | 2022-02-07 01:35 | XMS_ITS | Encounter Summary ---
:1955 Author Organization [facility] Address [address] [place] [address] Care Team Providers Name Role Phone Danish Cao DO Primary Care Provider Reason for Visit Reason Onset Date Comments Anticoagulation 09/22/[address] Kenney's call Other 09/22/2010 Pt called again Anticoagulation 09/22/2010 Called patient on 09/21 and 09/22 however patient was not available to take ca lls. Encounter Details Date Type Department Care Team Description 09/22/2010 Telephone [facility] Atiya Jaffe MD Anticoagulation (Patient Hematology & [address] Nelsy osman's call Oncology - [facility] ); Other (Pt called [facility] again); Anticoagulation 111 [facility], Level 2 (Called patient on 09/21 [place], [place] [id number] [place] [address] and 09/22 however patient [phone] [address] was not available to [phone] (Wo rk) take calls.) Social History Tobacco Use Types Packs/Day Years [...] this encounter Miscellaneous Notes Telephone Encounter - Radha Kaiser, RN - 09/23/2010 9061 EST Left message documented in this encounter Plan of Treatment Upcoming Encounters Date Type Specialty Care Team Description 09/13/2022 Office Visit Cardiology Shelton Smith MD [address] [place] [address] [address] (Wo rk) documented as of this encounter Visit Diagnoses Not on filedocumented in this encounter Care Teams Roof Bolter Relationship Specialty Start Date End Date Danish Cao, PCP - General 11/26/08 06/26/[address] [place], [place] [address] documented as of this encounter
--- OUTSIDE RECORDS SUMMARY | 2022-02-07 01:35 | XMS_ITS | Encounter Summary ---
:1955 Author Organization [facility] Address [address] [place] [address] Care Team Providers Name Role Phone Nash, Danish Wells Primary Care Provider Reason for Visit Reason Onset Date Comments Medications Refill 08/30/2010 2-month supply, 5 re fills Encounter Details Date Type Department Care Team Description 08/30/2010 Refill [facility] Rex Hendricks, Medications Refill Cardiology - Sayra STILES (2-month supply, [address] [facility] refills) [address] [place] [address] (Jewell rk) Social History Tobacco Use Types Packs/Day [...] Sig Dispensed Refills Start Date End Date dofetilide (TIKOSYN) 500 Take 1 Cap by mouth 120 Cap 5 09/20/2010 mcg capsule every 12 hours. documented in this encounter Plan of Treatment Upcoming Encounters Date Type Specialty Care Team Description 09/13/2022 Office Visit Cardiology Shelton Smith MD 130 [facility] [address] [place] [address] (Wo rk) documented as of this encounter Visit Diagnoses Not on filedocumented in this encounter Discontinued Medications Medication Sig Discontinue Reason Start Date End Date dofetilide (TIKOSYN) 500 Take 1 Cap by mouth Reorder 1 08/30/2010 mcg capsule every 12 hours. documented as of this encounter Care Teams Pet Stylist Relationship Specialty Start Date End Date Danish Cao DO PCP - General 11/26/08 06/26/16 [facility] [place] [address] documented as of this encounter
--- OUTSIDE RECORDS SUMMARY | 2022-02-07 01:35 | XMS_ITS | Encounter Summary ---
:1955 Author Organization [facility] Address [address] [place] [address] Care Team Providers Name Role Phone Danish Cao DO Primary Care Provider Encounter Details Date Type Department Care Team Description 09/21/2010 Orders Only [facility] Radha Kaiser RN A-fib (CMS-HCC) Hematology & Oncology 111 [facility] (Primary Dx) [place] [address] [address] [place] [address] Social History Tobacco Use Types Packs/Day Years [...] Sig Dispensed Refills Start Date End Date fondaparinux (ARIXTRA) 5 Inject 0.4 mL into 10 Syringe 1 07/201011/01/2010 mg/0.4 mL the skin daily. injectionIndications: A-fib (HCC-CMS) (HCC) documented in this encounter Plan of Treatment Upcoming Encounters Date Type Specialty Care Team Description 09/13/2022 Office Visit Cardiology Shelton mSith MD 130 [facility] [address] [place] [address] (Wo rk) documented as of this encounter Visit Diagnoses Diagnosis A-fib (HCC-CMS) (HCC) - Primary Atrial fibrillation documented in this encounter Care Teams Certified Nurse Aide Relationship Specialty Start Date End Date Danish Cao, PCP - General 11/26/08 06/26/16 [address] [facility] [place] [address] documented as of this encounter
--- OUTSIDE RECORDS SUMMARY | 2022-02-07 01:35 | XMS_ITS | Encounter Summary ---
:1955 Author Organization [facility] Address [address] [place] [address] Care Team Providers Name Role Phone NashDanish bland Primary Care Provider Reason for Visit Reason Onset Date Comments Medications Refill 10/25/2010 Update 10/26/2010 Pt to update Margoth Padilla recieved Rx and will be picking up. Pt ch ecking to see about change in dosage. Encounter Details Date Type Department Care Team Description 10/25/2010 Telephone [facility] Valerie Pitt RN Medi cations Refill; Cardiology - Sayra Update (Pt to update [address] Padilla, Pharmacy recieved [place], [place] [address] Rx and will be [phone] picking up. Pt checking to see about ch pilar in dosage.) Social History Tobacco Use Types Packs/Day Years [...] state (HCC-CMS) (HCC) documented in this encounter Miscellaneous Notes Telephone Encounter - Valerie Pitt RN - 10/29/2010 1148 EDT Pre procedure information sent to pt via email. Pt calling about these and about Coumadin instructions, see anticoag navigator. documented in this encounter Plan of Treatment Upcoming Encounters Date Type Specialty Care Team Description 09/13/2022 Office Visit Cardiology Shelton Smith MD [address] [place] [address] [phone] (Wo rk) documented as of this encounter Visit Diagnoses Diagnosis Primary hypercoagulable state (HCC-CMS) (HCC) - Primary Primary hypercoagulable state documented in this encounter Discontinued Medications Medication Sig Discontinue Reason Start Date End Date aspirin 325 mg Take 325 mg by mouth Duplicate Therapy 08/26/2010 10/25/2010 tabletIndications: daily. Indications: platelet aggregation PLATELET AGGREGATION inhibition INHIBITION warfarin (COUMADIN) 5 mg Take 1 Tab by mouth Reorder 1 10/25/2010 tabletIndications: daily. Primary hypercoagulable state (HCC-CMS) (HCC) documented as of this encounter Care Teams Nurse Transplant Relationship Specialty Start Date End Date Danish Cao DO PCP - General 11/26/08 06/26/16 [address] [place] [address] documented as of this encounter
--- OUTSIDE RECORDS SUMMARY | 2022-02-07 01:35 | XMS_ITS | Encounter Summary ---
:1955 Author Organization [facility] Address [address] [place] [address] Care Team Providers Name Role Phone NashDanish bland Primary Care Provider Reason for Visit Reason Onset Date Comments Follow-up 10/07/2010 Encounter Details Date Type Department Care Team Description 10/07/2010 Telephone [facility] Cardiology - Valerie Pitt RN Follow-up Sayra [address] [place] [phone] Social History Tobacco Use Types Packs/Day [...] this encounter Miscellaneous Notes Telephone Encounter - Rex Hnedricks MD - 10/07/2010 3328 EDT I have reviewed the records and laboratory values and discussed them with both Dr. Jaffe and Dr. Manriquez. We are all concerned that Yonis has abnormal coagulation given the history of spontaneous arterial embolus and the excessive thrombus that formed during his prior ablation. His lab studies however reveal no amrit coagulopathy. There is some disagreement about the possibility of HIT. Dr. Manriquez feels confident that the laboratories do not support such a diagnosis. Therefore the consensus opinion is that Yonis has an increased risk of thrombus but that it impossible to put a number on the likelihood. Given that we can perform this procedure on a greater amount of anticoagulation (with coumadin and heparin) and that he did not have any clinical consequence from his prior ablation, it seems that the risk is not prohibitive. His AF is quite symptomatic. Therefore I think that it would be reasonable to attempt a repeat ablation but that Bill needs to understand that the risk is elevated to an unknown degree. In discussions with Yonis he has acknowledged this risk and would like to proceed [id number]. Dr. Manriquez feels that the procedure can safely be performed on heparin. elephone Encounter - Valerie Pitt, RN - 10/07/2010 1040 EDT Pt advised, per Dr. Hendricks, that Dr. Hendricks discussed patient's case w/ Dr. Jaffe and Dr. Manriquez and the consensus of opinion is that he is at somewhat higher risk for embolic event if he has another ablation but that the actual risk is undetermined. Dr. Hendricks feels that his risk during a second ablation would be somewhat lower than with the first because patients are currently being anticoagulated during ablation w/ combination of heparin and Coumadin. Dr. Hendricks's feeling is that a repeat ablation would be safe enough to recommend to patient, but with the understanding that he is at somewhat higher risk than usual. Pt responds that he understands and would like to discuss this w/ his wi fe before making a decision. Advised pt that I will wait for his call. documented in this encounter Plan of Treatment Upcoming Encounters Date Type Specialty Care Team Description 09/13/2022 Office Visit Cardiology Shelton Smith MD [address] [place] [address] [address] [place], [place] [phone] (Wo rk) documented as of this encounter Visit Diagnoses Not on filedocumented in this encounter Care Teams Credit Resolution Representative Relationship Specialty Start Date End Date Danish Cao, PCP - General 11/26/08 06/26/[address] [place], [place] [id number] documented as of this encounter
--- OUTSIDE RECORDS SUMMARY | 2022-02-07 01:35 | XMS_ITS | Encounter Summary ---
:1955 Author Organization [facility] Address [address] [place] [address] Care Team Providers Name Role Phone Danish Cao DO Primary Care Provider Reason for Visit Reason Onset Date Comments Medication Management 09/23/2010 Patient would like to discuss going back on blood thinner. Encounter Details Date Type Department Care Team Description 09/23/2010 Telephone [facility] Atiya Jaffe MD Medication Management Hematology & Oncology [address] [facility] (Patient would like to - [facility], Main discuss going back on [address] [facility], Level 2 blood thinner.) [place] [address] [place], [place] [phone] (Wo rk) Social History Tobacco Use [...] encounter Miscellaneous Notes Telephone Encounter - Radha Kaiser RN - 09/23/2010 1603 EST Message left for pt to call back when he has medications for bridge documented in this encounter Plan of Treatment Upcoming Encounters Date Type Specialty Care Team Description 09/13/2022 Office Visit Cardiology Shelton Smith MD [address] [facility] [place] [address] (Wo rk) documented as of this encounter Visit Diagnoses Not on filedocumented in this encounter Care Teams Shipping/Receiving Manager Relationship Specialty Start Date End Date Danish Cao DO PCP - General 11/26/08 06/26/[address] [place], [place] [address] documented as of this encounter
--- OUTSIDE RECORDS SUMMARY | 2022-02-07 01:35 | XMS_ITS | Encounter Summary ---
:[address] [facility] Address [address] [place] [address] Care Team Providers Name Role Phone NashDanish bland Primary Care Provider Reason for Visit Reason Onset Date Comments Irregular Heart Beat 08/04/2010 Encounter Details Date Type Department Care Team Description 08/04/2010 Telephone [facility] Valerie Pitt RN Irre gular Heart Beat Cardiology - [address] [place], [place] [address] Social History Tobacco Use Types Packs/Day Years Used Date Never Assessed Sex Assigned at Date Recorded Not on file documented as of this encounter Miscellaneous Notes Telephone Encounter - Valerie Pitt RN - 08/04/2010 1218 EST Per Yashira @ Dr. Smith's office, Dr. Smith would like pt to see Dr. Hendricks in clinic for recurrence of afib. Pt contacted and reports he was @ [facility] ER for several hours yesterday for rapid afib, HR 160s w/ his usual symptoms including terrible headache. Pt reports he self converted @ home after leaving the hospital. Pt scheduled to see Dr. Hendricks on 08/12. Pt aware of date and time of appt and states, I'll be there! Advised him to call me if afib recurs and states he will do so. documented in this encounter Plan of Treatment Upcoming Encounters Date Type Specialty Care Team Description 09/13/2022 Office Visit Cardiology Shelton Smith MD [address] [facility] [address] [place] [address] (Wo rk) documented as of this encounter Visit Diagnoses Not on filedocumented in this encounter Care Teams Figurine Maker Relationship Specialty Start Date End Date Danish Cao DO PCP - General 11/26/08 06/26/[address] [place], [place] [address] documented as of this encounter
--- OUTSIDE RECORDS SUMMARY | 2022-02-07 01:35 | XMS_ITS | Encounter Summary ---
:1955 Author Organization [facility] Address [address] [place] [address] Care Team Providers Name Role Phone Unavailable Primary Care Provider Unavailable Encounter Details Date Type Department Care Team Description 08/26/2008 - Hospital Encounter [facility] Rex Hendricks 08/27/2008 Cardiac/Telemetry MD [facility] [address], [facility] [address] [place] [address] (Wo rk) Social History Tobacco Use Types Packs/Day Years Used Date Never Assessed Sex Assigned at Date Recorded Not on file documented as of this encounter Discharge Summaries Alvina Reynolds NP - 08/27/2008 0000 EST DISCHARGE SUMMARY Admission Date: 08/26/2008 Discharge Date: 08/27/2008 HISTORY OF PRESENT ILLNESS Mr Rooney is a 52-year-old very active athletic individual with a history of paroxysmal atrial fibrillation whodid not tolerate calcium channel blockers or beta blockers very well, and had side effects of nightmares and personality change on flecainide. He was seen and evaluated by Dr Rex Hendricks in Cardiac Electrophysiology Clinic for consideration for atrial fibrillation ablation. PAST MEDICAL HISTORY 1. Paroxysmal atrial fibrillation. 2. History of left index finger question of thrombus. HOSPITAL COURSE Mr Rooney was admitted to the Cardiac Electrophysiology Laboratory where encirclement and isolation of all four pulmonary veins was performed. The patient was in sinus rhythm at the time of the procedure and remained in sinus rhythm throughout the hospitalization. He was not inducible for atrial fibrill ation after the procedure. He tolerated the procedure well. At the time of discharge he was afebrile with a pulse of 93 and a blood pressure of 134/82. Cardiac exam was a regular rate and rhythm with a normal S1 and S2. His lungs were clear to auscultation throughout all carlson. His right groin catheter site had slight sanguinous ooze from one of the puncture sites, which was injected with 1.5 mL of lidocaine, epinephrine intradermally, and this successfullystopped the bleeding. Both the right and left femoral sites showed nosigns of hematoma or bruits. He had some slight ecchymosis at the left groin site. He was toleratingactivity on the unit without any shortness of breath and had only slight chest discomfort, which didnot increase in a supine position. DISCHARGE MEDICATIONS 1. Metoprolol 50 mg every morning and 25 mg every evening. 2. Coumadin. 3. Lovenox 60 mg subcu every four hours until his INR is therapeutic at 2.0. FOLLOWUP He has a follow up appointment with Dr Rex Hendricks and will continue to be followed by our Coumadin Clinic. The discharge instructions were reviewed with the patient and his spouse, and activity restrictions were discussed. Of note, the patient was noted to be somewhat hypercoagulable during the ablation procedure. As a consequence, hematology was called to discuss the appropriate labs to be drawn to ascertain hypercoagulability. They indicated that because the patient was on Coumadin and Lovenox, the only labs that would not be affected by those drugs were a Factor V Leiden and a prothrombin G mutation. Therefore thoselabs were drawn. If further hypercoagulable workup is indicated, the patient would have to be off Coumadin for three months prior to drawing a protein C or protein S labs. If the labs that have been drawn are abnormal, the gentleman should be referred to hematology for further workup for possible hypercoagulable state. Thank you for much for allowing us to participate in the care of this patient. Please do not hesitate to call if you have any questions. Sincerely, Supervising Physician Signed by Rex Hendricks MD 09/09/2008 08:40 Reviewed by JULIANO Morris 09/04/2008 16:25 Link Reynolds, Mikie Peres MD - JULIANO Morris A - SB Job ID: [id number] Document ID: [id number] cc: DO Alvina Hu ANP Michael G Hayes, MD Peter S Spector, MD documented in this encounter Discharge Disposition Disposition Code Departure Means Destination Home or Self Care documented in this encounter Procedure Notes Cuauhtemoc Son MD, MD - 08/26/2008 0000 EST Images from the original note were not included. Cardiac Arrhythmia Service MD Kalpesh Lima MD Daniel Lustgarten, MD, PhD MD Alvina Fry NP EP Study and Ablation for Atrial Fibrillation NAME: NOHEMY ROONEY Exchange Clerk: Rex Hendricks MD : 1955 Procedure Date: 08/26/2008 Case No: [id number] Assistants: MD Gary Barney RN Referring Physician: Primary Care Physician: Danish Cao MD Indication: Atrial Fibrillation. HPI: 52 year old man with recurrent symptomatic paroxysmal atrial fibrillation.He has been unable to tolerate antiarrhythmic drugs due to side effects and he now presents for ablation. A pre-procedure FREEDOM was negative for left atrial thrombus. Anesthesia: General anesthesia The patient was brought to the electrophysiology laboratory in the fasting state.After informed consent was obtained, the patient was prepped and draped in the usual sterile fashion. Access was obtained using a modified Seldinger technique.All catheters were placed under fluoroscopic guidance. The Attending physician was present for the mejia portions of the procedure. Catheters: #7 Fr deflectable electrode catheter 20 electrodes (1 mm-5mm-1mm spacing) RAA: #6 Fr hexapolar electrode catheter(2 mm spacing; proximal ring 25 cm from tip) [employer] intracardiac ultrasound catheter 3.5 mm Thermocool Navistar #7 Fr catheter (2 mm-5mm-2mm) Fixed 15 and 25 mm Lassos: #7Fr [id number] pole electrode(4.5 mm pairs) Pacing and recording were carried out from the right atrium, the left atrium, the right ventricle, the coronary sinus, and His bundle. EP Study: A comprehensive EP study with attempted arrhythmia induction was performed. Baseline Rhythm: Sinus Rhythm Cycle length:1120 ms AH interval:62 ms HV interval:55 ms At baseline, the patient was in sinus rhythm without evidence of pre- excitation.\ Pacing from the right atrial appendage demonstrated 1:1 antegrade conduction over the AV node fast pathway to 460 ms and then over the slow pathway to 430 ms.Pacing from the right ventricle demonstrated retrograde conduction over the AV node to370 ms.Para-hisian pacing was consistent with retrograde conduction entirely over the AV node. Ablation Procedure: Double Transseptal Procedure: A transseptal procedure was performed under fluoroscopic, pressure,and ICE guidance. An SL#1 sheath and dilator were placed in the [...] were begun to keep the ACT > 300seconds.A second sheath was placed in the left atrium using the same technique as the first sheath. Right atrial Systolic Pressure (mmHg): 6 Right atrial Diastolic Pressure (mmHg): 2 Right atrial mean Pressure (mmHg): 3 Left atrial Systolic Pressure (mmHg): 10 Left atrial Diastolic Pressure (mmHg): 2 Left atrial mean Pressure (mmHg): 5 of all pulmonary veins was then performed using the SL #1 sheath. 3D Electro-anatomical Carto Mapping: Using the Thermocool catheter, a Carto shell of the left atrium and pulmonary veins was made.This shell was merged with the pre-procedure CT scan and the subsequent merged shell was used to guide the procedure. Pulmonary Vein Encircling/Isolation: The left and right sided pulmonary veins (PVs) were encircled and isolated with lasso guidance.RF was delivered at 30W max (25 W max when ablating the posterior left atrium or near the ostia of the veins) and esophageal temperature was monitored throughout.During PVI on the left he had a brief burst of non- sustained atrial fibrillation.A portion of the cold springs around the posterior aspect of the LPVs could not be completed because of consistent, and nearly immediate, spike in esophageal temperature assoon as RF was turned on this area. At this point the patient was in sinus rhythm and all PVs were isolated.Burst pacing from the CS down to 220 ms failed to induce any sustained AF or AT.The procedure was therefore concluded.\par Catheters were withdrawn, protamine was given, and the sheaths were pulled.Hemostasis was achieved with manual compression.\ No complications were noted.Total fluoroscopy time: 41 minutes.Contrast: 60 mL.Blood loss <75 mL.I/O 3100/1100 ml.\par Summary of Procedure: 1. Encirclement and isolation of the pulmonary veins. 2. No inducible atrial fibrillation of tachycardia at the conclusion of the procedure. 3. No complications. personally reviewed the study and the resident's/fellow's interpretation and agree with the findings. Signed by Rex Hendricks MD 09/09/2008 08:40 Cuauhtemoc Son MD Electrophysiology Fellow Rex Hendricks MD Attending Physician D: - Cuauhtemoc Son MD P - KSW Job ID: Document ID: [id number] cc: Danish Cao DO documented in this encounter Plan of Treatment Upcoming Encounters Date Type Specialty Care Team Description 09/13/2022 Office Visit Cardiology Shelton Smith MD [address] [place] [address] [address] [place] [address] (Wo rk) documented as of this encounter Procedures Procedure Name Priority Date/Time Associated Comments Diagnosis PROTHROMBIN [id number] Routine 08/27/2008 10:30 Resu lts for this MUTATION EST procedure are i n the results section. ZZFACTOR V LEIDEN Routine 08/27/2008 10:30 Result s for this MUTATION EST procedure are i n the results section. PROTIME Routine 08/27/2008 6:00 Results for this EST procedure are i n the results section. COMPLETE BLOOD COUNT Routine 08/27/2008 6:00 Resu lts for this EST procedure are i n the results section. BUN Routine 08/27/2008 6:00 Results for this EST procedure are i n the results section. CREATININE Routine 08/27/2008 6:00 Results for this EST procedure are i n the results section. ELECTROLYTES Routine 08/27/2008 6:00 Results for this EST procedure are i n the results section. PROTEIN S ACTIVITY Routine 08/26/2008 14:45 Resul ts for this EST procedure are i n the results section. FIBRINOGEN Routine 08/26/2008 14:45 Results for this EST procedure are i n the results section. D-DIMER Routine 08/26/2008 14:45 Results for this EST procedure are i n the results section. PROTEIN C ACTIVITY Routine 08/26/2008 14:45 Resul ts for this EST procedure are i n the results section. PROTEIN S ACTIVITY Routine 08/26/2008 13:47 Resul ts for this EST procedure are i n the results section. ZZFACTOR V LEIDEN Routine 08/26/2008 13:47 Result s for this MUTATION EST procedure are i n the results section. FIBRINOGEN Routine 08/26/2008 13:47 Results for this EST procedure are i n the results section. D-DIMER Routine 08/26/2008 13:47 Results for this EST procedure are i n the results section. ANTITHROMBIN, Routine 08/26/2008 13:47 Results fo r this FUNCTIONAL EST procedure are i n the results section. PROTEIN C ACTIVITY Routine 08/26/2008 13:47 Resul ts for this EST procedure are i n the results section. ACT, CELITE ISTAT Routine 08/26/2008 12:36 Result s for this EST procedure are i n the results section. ACT, CELITE ISTAT Routine 08/26/2008 11:53 Result s for this EST procedure are i n the results section. ACT, CELITE ISTAT Routine 08/26/2008 11:18 Result s for this EST procedure are i n the results section. ACT, CELITE ISTAT Routine 08/26/2008 10:43 Result s for this EST procedure are i n the results section. documented in this encounter Results FACTOR V LEIDEN (08/27/2008 10:30 EST) Pathologist Sig nature Factor V Leiden DUPLICATE ORDER, [facility] CREDIT ISSUED Specimen Performing Organization Address City/State/ZIP Code Phon e Number [facility] [address] [place] [address] SERVICES [facility] [address] [place] [address] PRO [id number] MUTATION (08/27/2008 10:30 EST) Prothrombin [facility] Mutation RESULT: ? LAB ? The Prothrombin [id number] muta tion was not detected. ? METHOD: ? The Prothrombin [id number] muta tion is detected by amplification of DNA ? isolated from blood followin g by melt curve analysis ? INTERPRETATION: ? The Prothrombin R88088S muta tion is not present. ?? A genetic cause of ? deep-vein thrombosis can not be excluded since there are many other ? disease causing mutations. ? As of July 24, 1998, [place] [address] prohibits release of genetic test ? results to third parties wit hout the specific informed consent of the ? patient. ? TEST PERFORMED BY: ? [facility] ? [facility] ? [address] [address] ? [facility] ? [place], [place] [address] ? These results need to be int erpreted in the context of the clinical ? presentation and the results of other laboratory tests. ??A ? consultation with a Hematolo gist or Thrombosis Specialist may be of ? benefit for this individual and/or family to further discuss the ? implications of these findin gs. The results reported here are only as ? accurate as the identity of the sample received. ? This test is not an FDA- bib roved test, however it is based on the ? use of analyte-specific reag ents that do not require FDA approval. ??A ? [place] statute prevents our laboratory from releasing these results ? to anyone other than the per son who has been tested and the referring ? clinician without the prior written consent of the person tested. ? Atiya ??E. Lopez, MD ? Clinical Director ? Diagnosis Code: ??no DX on r eq ? Specimen Performing Organization Address City/State/ZIP Code Phon e Number [facility] [address] [place] [address] SERVICES [facility] [address] [place] [address] CREATININE (08/27/2008 6:00 EST) Pathologist Sig nature Creatinine 0.82 0.7 - 1.5 mg/dl [facility] GFR, Calculated >60 ml/min/1.73m2 [facility] Specimen Performing Organization Address [facility]/ZIP [facility] Phon e Number [facility] [address] [place] [address] SERVICES [facility] [address] [place] [address] BUN (08/27/2008 6:00 EST) Pathologist Sig nature BUN 17 10 - 26 mg/dl [facility] Specimen Performing Organization Address [facility] Phon e Number [facility] [address] [place] [address] SERVICES [facility] [address] [place] [address] ELECTROLYTES (08/27/2008 6:00 EST) Pathologist Sig nature Sodium 140 136 - 145 mEq/L [facility] Potassium 4.3 3.5 - 5.0 mEq/L [facility] Chloride 107 96 - 110 mEq/L [facility] CO2 25 24 - 32 mEq/L [facility] Specimen Performing Organization Address [facility] Phon e Number [facility] [address] [place] [address] SERVICES [facility] [address] [place] [address] (ABNORMAL) PROTIME (08/27/2008 6:00 EST) Pro Time 17.0 (H) 12.0 - 15.0 [facility] secs I.N.R. 1.3 (H) 0.9 - 1.1 [facility] Comment: Ratio Moderate Intensity Coumadin INR = 2.0-3.0 Adjustments in anticoagulant therapy dose should be based upon the INR and NOT the Pro Time. Specimen Performing Organization Address [facility] Phon e Number [facility] [address] [place] [address] SERVICES [facility] [address] [place] [address] (ABNORMAL) HEMAGRAM (08/27/2008 6:00 EST) Pathologist Sig nature WBC 11.44 (H) 4.0 - 10.4 K/cmm [facility] RBC 4.49 4.36 - 5.78 M/cmm [facility] Hemoglobin 13.9 13.8 - 17.3 gm/dl [facility] HCT 40.0 39.5 - 50.2 % [facility] MCV 89 81 - 95 fl [facility] MCH 30.9 27.6 - 33.0 pg [facility] MCHC 34.7 32.8 - 36.4 gm/dl [facility] PLT 262 141 - 320 K/cmm [facility] RDW-CV 13.4 11.8 - 14.1 % [facility] Specimen Performing Organization Address [facility] Phon e Number [facility] [address] [place] [address] SERVICES [facility] [address] [place] [address] (ABNORMAL) PROTEIN S CLOT (08/26/2008 14:45 EST) Protein S 19 (L) 76 - 151 % [facility] Comment: LAB Sample retested, result confirmed [...] n this setting. Specimen Performing Organization Address City/[facility] Phon e Number [facility] [address] [place] [address] SERVICES [facility] [address] [place] [address] PROTEIN C CLOT (08/26/2008 14:45 EST) Protein C Clot 99 77 - 183 % [facility] Comment: LAB A. Acquired protein C defici encies are associated with ??liver disease, oral anticoagulants, acute thrombotic events and DIC. B. Results may be affected by plasma heparin levels gr eater than 1.0 U/ml C. Results may be affected b y the presence of Lupus Anticoagulants, or factor VIII concentrations greater than 250%. ??Confirmation of the results by a functional, chromogenic assay may be useful in these circumstances D. Results are not affected by the presence of Activated Protein Resistance (APC-R) or the Factor V Leiden mutation associated with APC-R. E. ??Results may be overesti mated in the presence of direct thrombin inhibitors such as Hirudin (Refludan) and Argatroban (Novastan). F. ??Acute illness and/or th rombosis may influence test results in an unpredictable manner, therefore results should be interpreted with caution i n this setting. Specimen Performing Organization Address [facility] Phon e Number [facility] [address] [place] [address] SERVICES [facility] [address] [place] [address] D-DIMER (08/26/2008 14:45 EST) D-Dimer 0.39 <0.50 ug FEU/ml [facility] Comment: The presence of rheumatoid f actor (RF) at a level greater than 50IU/ml may ?lead to an over-estimation of the D-Dim er level. ??It is therefore ?recommended that the presence of RF in the test samples be co nfirmed by an ?appropriate RF procedure for cases of unexplained D-Dimer positive results. CUTOFF VALUE FOR THE EXCLUSION OF DVT and PE: 0.5 ug F EU/mL Specimen Performing Organization Address [facility] Phon e Number [facility] [address] [place] [address] SERVICES [facility] [address] [place] [address] (ABNORMAL) FIBRINOGEN (08/26/2008 14:45 EST) Pathologist Sig nature Fibrinogen 201 (L) 220 - 410 mg/dl [facility] Specimen Performing Organization Address City/State/ZIP Code Phon e Number [facility] [address] [place] [address] SERVICES [facility] [address] [place] [address] FACTOR V LEIDEN (08/26/2008 13:47 EST) Factor V Leiden [facility] RESULT: ? The Factor V Leiden mutation was not detected. ? METHOD: ? The Factor V Leiden mutation is detected by amplification of DNA ? isolated from blood followin g by melt curve analysis ? INTERPRETATION: ? The Factor V Leiden mutation is not present. ?? A genetic cause of ? deep-vein thrombosis can not be excluded since there are many other ? disease causing mutations. ? As of July 24, 1998, [place] [address] prohibits release of genetic test ? results to third parties wit hout the specific informed consent of the ? patient. ? TEST PERFORMED BY: ? [facility] ? [facility] ? [address] ? [place] ? [place] [address] ? These results need to be int erpreted in the context of the clinical ? presentation and the results of other laboratory tests. ??A ? consultation with a Hematolo gist or Thrombosis Specialist may be of ? benefit for this individual and/or family to further discuss the ? implications of these findin gs. The results reported here are only as ? accurate as the identity of the sample received. ? This test is not an FDA- bib roved test, however it is based on the ? use of analyte-specific reag ents that do not require FDA approval. ??A ? [place] statute prevents our laboratory from releasing these results ? to anyone other than the per son who has been tested and the referring ? clinician without the prior written consent of the person tested. ? Atiya ??E. Lopez, MD ? Clinical Director ? Diagnosis Code: ??no DX on r eq ? Specimen Performing Organization Address City/State/ZIP Code Phon e Number [facility] [address] [place] [address] SERVICES [facility] [address] [place] [address] PROTEIN S CLOT (08/26/2008 13:47 EST) Protein S Activity Unable to test 76 - 151 % [facility] specimen: LAB Underfilled tube submitted. Resubmit properly filled tube. Specimen Performing Organization Address City/State/ZIP Code Phon e Number [facility] [address] [place] [address] SERVICES [facility] [address] [place] [address] FIBRINOGEN (08/26/2008 13:47 EST) Fibrinogen Unable to test 220 - 410 mg/dl [facility] specimen: Underfilled tube submitted. Resubmit properly filled tube. Specimen Performing Organization Address City/State/ZIP Code Phon e Number [facility] [address] [place] [address] SERVICES [facility] [address] [place] [address] D-DIMER (08/26/2008 13:47 EST) D-Dimer Unable to test <0.50 ug FEU/ml [facility] specimen: Underfilled tube submitted. Resubmit properly filled tube. Specimen Performing Organization Address City/[facility]/ZIP Code Phon e Number [facility] [address] [place] [address] SERVICES [facility] [address] [place] [address] PROTEIN C CLOT (08/26/2008 13:47 EST) Protein C Clot Unable to test 77 - 183 % [facility] specimen: Underfilled tube submitted. Resubmit properly filled tube. Specimen Performing Organization Address City/State/ZIP Code Phon e Number [facility] [address] [place] [address] SERVICES [facility] [address] [place] [address] ANTITHROMBIN, FUNCTIONAL (08/26/2008 13:47 EST) Antithrombin, Unable to test 86 - 128 % [facility] Funct. specimen: LAB Underfilled tube submitted. Resubmit properly filled tube. Specimen Performing Organization Address [facility] Phon e Number [facility] [address] [place] [address] SERVICES [facility] [address] [place] [address] ACT, CELITE ISTAT (08/26/2008 12:36 EST) Activated Clotting 364 [facility] Time Tech ID [id number] [facility] Test performed by Cardiology. Baseline ref range = 84 to 139 seconds For non baseline ref ranges see procedure. Specimen Performing Organization Address [facility] e Number [facility] [address] [place] [address] SERVICES [facility] [address] [place] [address] ACT, CELITE ISTAT (08/26/2008 11:53 EST) Activated Clotting 325 [facility] Time Tech ID [id number] [facility] Test performed by Cardiology. Baseline ref range = 84 to 139 seconds For non baseline ref ranges see procedure. Specimen Performing Organization Address [facility] Phon e Number [facility] [address] [place] [address] SERVICES [facility] [address] [place] [address] ACT, CELITE ISTAT (08/26/2008 11:18 EST) Activated Clotting 340 [facility] Time Tech ID [id number] [facility] Test performed by Cardiology. Baseline ref range = 84 to 139 seconds For non baseline ref ranges see procedure. Specimen Performing Organization Address [facility] Phon e Number [facility] LABORATORY [address] [place] [address] SERVICES [facility] [address] [place] [address] ACT, CELITE ISTAT (08/26/2008 10:43 EST) Activated Clotting [address] [facility] Time Tech ID [id number] [facility] Test performed by Cardiology. Baseline ref range = 84 to 139 seconds For non baseline ref ranges see procedure. Specimen Performing Organization Address [facility] Phon e Number [facility] LABORATORY [address] [place] [address] SERVICES [facility] [address] [place] [address] documented in this encounter Visit Diagnoses Not on filedocumented in this encounter
--- OUTSIDE RECORDS SUMMARY | 2022-02-07 01:35 | XMS_ITS | Encounter Summary ---
:1955 Author Organization [facility] Address [address] [place] [address] Care Team Providers Name Role Phone Danish Cao DO Primary Care Provider Encounter Details Date Type Department Care Team Description 03/18/2010 Hospital Encounter [facility] - Danika Moore MD [facility] [address] [place] [id number] [place] [address] [id number] [phone] Social History Tobacco Use Types Packs/Day Years Used Date Never Assessed Sex Assigned at Date Recorded Not on file documented as of this encounter Medications at Time of Discharge Medication Sig Dispensed Refills Start Date End Date WARFARIN SODIUM Take by mouth. As 0 (COUMADIN ORAL) Directed documented as of this encounter Discharge Disposition Disposition Code Departure Means Destination Auto Discharge Home documented in this encounter Plan of Treatment Upcoming Encounters Date Type Specialty Care Team Description 09/13/2022 Office Visit Cardiology Shelton Smith MD [address] [place] [address] [address] [place] [address] (Wo rk) documented as of this encounter Visit Diagnoses Not on filedocumented in this encounter Care Teams Language Path Relationship Specialty Start Date End Date Danish Cao DO PCP - General 11/26/08 06/26/[address] [place] [address] documented as of this encounter
--- OUTSIDE RECORDS SUMMARY | 2022-02-07 01:35 | XMS_ITS | Encounter Summary ---
:1955 Author Organization [facility] Address [address] [place] [address] Care Team Providers Name Role Phone NashDanish bladn Primary Care Provider Encounter Details Date Type Department Care Team Description 12/01/2008 Hospital Encounter [facility] Freddy Jaffe MD Hematology & Oncology [address] [facility], [address] [place], [place] [id number] [place] [phone] (Wo rk) Social History Tobacco Use Types Packs/Day Years Used Date Never Assessed Sex Assigned at Date Recorded Not on file documented as of this encounter Discharge Disposition Disposition Code Departure Means Destination Home or Self [facility] documented in this encounter Plan of Treatment Upcoming Encounters Date Type Specialty Care Team Description 09/13/2022 Office Visit Cardiology Shelton Smith MD [address] [place] [address] [address] [place] [address] (Wo rk) documented as of this encounter Visit Diagnoses Evaluation - Bubba Wiggins MD - 12/01/2008 0000 EDT DIVISION OF HEMATOLOGY / ONCOLOGY NEW PATIENT EVALUATION - 12/01/2008 We are asked by Dr Rex Hendricks to consult on Mr Braulio Garcia for the evaluation and management ofhypercoagulable syndrome manifested as left index finger thrombosis and thrombosis noted during atrial fibrillation ablation. HISTORY OF PRESENT ILLNESS Mr Braulio Garcia is a pleasant 53-year-old gentleman from [place], [place] with the listed past medical history who was in his usual state of health until May 2007, when he developed near syncope. This led to the diagnosis of paroxysmal atrial fibrillation and he hasbeen followed by a c ardiologist at [facility]. He had not tolerated beta- alfreda, calcium channel alfreda or flecainide well with several breakthrough spells of near syncope. Notably on March 12, 2008, the patient visited [facility] ([facility]) with an acute onset of purple discoloration in the left index finger without pain, pale appearance or excessive swelling of the digit. This was clinically considered due to peripheral arterial thromboembolus and he was started on warfarin without concurrent use of heparin or npo-suuoacdzd-txwexk heparin for bridge. Approximately three days after the initiation of warfarin, the symptom disappeared completely. On August 26, 2008, he underwent ablation procedure for Jonnathan-fib by Dr Rex Hendricks, during which he was noted to have robust thrombus in sheath and wires. Over the past month, he has had progressive fatigue, dizziness, shortness of breath and left stabbing non-radiating chest pain on exertion. Pain is described as 5-6/10 in severity and alleviated by rest. He denies any shortness of breath or chest pain at rest. He has had weight loss of 15 pounds over the last one and a half years, and 6 pounds over the last two to three months. He also complains of a constant headache and increased heart rate over the last one to two months around 70-80 (baseline 50-60). He denies any leg pain, swelling or hemoptysis. However, he complains of sensation of leg heaviness bilaterally on climbing up stairs andrunning. Other thanthe ablation procedure and the surgeries as listed below, he has not recently hadany surgery. He denies any broken bone or cast, major trauma or hospitalization other than that for ablation, cancer other than basal cell carcinoma, air travel, car trip over four hours or bed rest longer than four days. His INR has been monitored at the Coumadin clinic at [facility] with the last INR 2.0 on November 20, 2008. He has been tolerating Coumadin well without any major bleeding episodes. REVIEW OF SYSTEMS A 12 system review of systems is completed as documented in the symptom assessment form. The patientcomplains of constant fatigue, weight loss, upper extremity to bilateral shoulder muscle soreness, chest pain on exertion, bilateral lower extremity heaviness, constant weakness, easy bruisability, cons tant low-grade bifrontal headache without visual disturbances. Otherwise, he does not have any cancer, severe infection, heart attack, heart failure, stroke or transient ischemic attack, inflammatory or autoimmune disease, bad circulation in legs, kidney disease, major trauma or broken bone requiring cast. PAST MEDICAL HISTORY 1. Paroxysmal A fib, diagnosed in May 2007, status post ablation on August 26, 2008. 2. 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 3. Basal cell carcinoma, status post resection of the left gutierrez and back lesion in 2007. 4. Status post septoplasty in 2006. 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 The patients highest level of education iscollege/BS. He has two grownup daughters. He takes exercise regularly, ncr-kck-v-half-hour jogging daily. He is a marathon runner. He has never smoked tobacco and he denies any alcohol consumption. FAMILY HISTORY This is described with pedigree in the initial evaluation form. His father had a sudden at theage of 71. He had a DVT in the lower extremity, for which he was taking Coumadin. The exact situation of his development of the DVT is unknown to the patient. Paternal grandfather had heart disease, but the detail of the cause of of paternal grandparents is unknown to the patient. Paternal uncledied of heart disease in the 70s.His mother is healthy at the age of 75. She had one miscarriage. His maternal grandfather had a cancer, the detail of which is unknown to the patient. The detail of cause of of maternal grandmother is unknown to the patient. He has two brothers andtwo daughters, all of whom are healthy. Otherwise, no miscarriages more than two or stillbirth in the female family. MEDICATIONS 1. Coumadin 5 mg four days a week and 2.5 mg three days a week. 2. Multivitamin one tablet p.o. daily. 3. Vitamin C 250 mg p.o. daily. ALLERGIES FLECAINIDE CAUSES HALLUCINATION. HE CANNOT TOLERATE ATENOLOL AND CALCIUM CHANNEL BLOCKERS WELL ASAMIODARONE. KEFLEX CAUSES NAUSEA. CANCER SCREENING Colonoscopy negative in June 2007. PHYSICAL EXAM Vital signs: Temperature 35.9, respiratory 16, heart rate 77, blood pressure 145/91. Height 175 cm. Weight 66.9 kg. BMI 21.8. General Appearance: Not in acute distress. HEENT: Pupils are equal and round, reactive to light bilaterally. Extraocular movements intact. Conjunctivae not pale, not icteric. Neck is supple. Cardiovascular: Regular rate and rhythm. No murmurs, rubs or gallops appreciated. Respiratory: Clear bilaterally. No wheezes, crackles or rhonchi. Abdomen: Soft, nondistended, nontender. No hepatosplenomegaly appreciated. : Deferred. Lower Extremities: No swelling, edema or cyanosis. No discoloration appreciated today. Neuro/Psych: Neuro is grossly intact, alert and oriented x3. Speech is clear. Appropriate affect. Cranial nerves II-XII intact. Lymph: No lymphadenopathy appreciated in the cervical, auricular, supraclavicular, axillary or inguinal areas. LABORATORY FINDINGS Labs on October 21, 2008, at [facility] revealed WBC 4.65, hemoglobin 14.5, hematocrit 42.3, platelets 300, MCV 87.4, RDW 12.5. Liver function tests on January 09, 2007, within normal limits. Chemistry on August 27, 2008, showed sodium 140, potassium 4.3, chloride 107, bicarbonate 25, BUN 17, creatinine 0.82. Factor V Leiden negative. Prothrombin [id number] mutation negative on August 27, 2008. Other hypercoagulable labs on August 26, 2008, showed D- dimer 0.39, protein S 19%, protein C 99%, fibrinogen 201, prothrombin time 17, INR 1.3. These labs were drawn on the day of ablation. At the previous night, on August 25, 2008, he was given Lovenox 60 mg. Up until three days prior to the ablation, the patient had been on warfarin. IMAGING STUDIES FREEDOM on August 25, 2008, showed normal left ventricular systolic function with EF 60-65%. No left ventricular regional wall motion abnormalities. Left ventricular wall thickness was mildly increased. Mild aortic root dilatation. Left atrial appendage function was normal without left atrial appendage thrombus identified. Normal ascending aorta, aortic arch and descending aorta. ASSESSMENT AND PLAN Mr Braulio Garcia is a 53-year-old gentleman with a hypercoagulable syndrome manifested as peripheral arterial thromboembolus in the left index finger on March 12, 2008, and thrombus formation on the wires andsheath during the ablation procedure, associated with low protein S level (three days after discontinuation of warfarin and with normal protein C concurrently), positive family historyof sudden and DVT in his father. Mr. Garcia has been on oral anticoagulation with warfarin. To better understand his hypercoagulable state, we need to know his cardiac risk factors, including lipid panel, blood pressure, inflammation. His exertional chest pain, dyspnea and dizziness might be due to his unrevealed underlying coronary artery disease for which he is scheduled to undergo stress echotest on December 05, 2008; however, the possibility of pulmonary embolism cannot be entirely excluded. Wediscussed the situation with the patient and Dr Rex Hendricks, and recommendthe following. 1. Obtain CAT scan of the chest with PE protocol to rule out PE for his new symptoms (shortness of breath, chest pain and dizziness on exertion). 2. Dr Jaffe sent a letter to the insurance company for approval of hypercoagulable workup as he has had difficulty getting coverage for the tests Dr. Hendricks previously sent. 3. If insurance company approves the test, we will order protein C, protein S with antigen level if protein C and S function is low, antithrombin, DRVVT, anticardiolipin antibody, D-dimer. We will alsoassess liver function tests and high-sensitivity CRP. 4. We will obtain fasting lipid panel and blood pressure results from primary care physician. 5. We will follow TSH, which is to be drawn on December 04, 2008, and stress echo test on December 05, 2008. 6. The patient and the family are educated and counseled on the rationale of these assessments and plans and was instructed to remain on warfarin until insurance company approves the further testing. He and his will let us know when it is ok to proceed. These assessments and plans were discussed with and formulated by Dr Atiya Jaffe. Thank you very much for letting us participate in the care of Mr Braulio Garcia. ADDENDUM 1. CAT scan of the chest with PE protocol on December 01, 2008, revealed no evidence of pulmonary embolism. It does show diffuse mild bronchial wall thickening. 2. Lipid panel from [facility] on January 09, 2007, showed HDL 51, triglyceride 109, total cholesterol 203 and LDL unreadable. Liver function tests as mentioned above in the laboratory. 3. We are still waiting for the clinical records from [facility] when the patient presented with discoloration of the index finger. saw and examined the patient with the resident/fellow. I agree with the findings and plan of care documented in the resident's/fellow's note. Edited and Signed by Atiya Jaffe MD 12/09/2008 16:58 Reviewed by Bubba Wiggins MD 12/08/2008 12:53 Bubba Wiggins MD Atiya Jaffe MD medication nurse - Bubba Wiggins MD - Job ID: [id number] Doc ID: [id number] cc: DO Rex Hu MD documented in this encounter Care Teams Liquid Loader Relationship Specialty Start Date End Date Danish Cao DO PCP - General 11/26/08 06/26/16 [address] [place] [address] documented as of this encounter
--- OUTSIDE RECORDS SUMMARY | 2022-02-07 01:35 | XMS_ITS | Encounter Summary ---
:1955 Author Organization [facility] Address [address] [place] [address] Care Team Providers Name Role Phone Danish Cao DO Primary Care Provider Encounter Details Date Type Department Care Team Description 11/09/2010 Hospital Encounter [facility] Rex Hendricks Cardiovascular Unit MD Delphine 111 [facility] [address] [place] [address] [address] [phone] [facility] 1 [place] [phone] (Wo rk) Social History Tobacco Use Types Packs/Day Years Used Date Never Assessed Sex Assigned at Date Recorded Not on file documented as of this encounter Last Filed Vital Signs Vital Sign Reading Time Taken Comments Blood Pressure 133/93 11/09/2010 1215 EDT Pulse 75 11/09/2010 1010 EDT Temperature 36.2 ??C (97.2 ??F) 11/09/2010 1142 EDT Respiratory Rate 18 11/09/2010 1215 EDT Oxygen Saturation 97% 11/09/2010 1215 EDT Inhaled Oxygen Concentration - - Weight [...] Care documented in this encounter Progress Notes Latasha López RN - 11/09/2010 1343 EDT 1210 Ice chips given pt jeffry well, no sign of aspiration. Food and drink given. Discharged instruction gone over with pt and , all questions answered, copy given. 1220 IV dc'd dry sterile dressing applied. 1230 Pt discharged to home via wheel chair in stable condition with kjt Jackie Jewell RN - 11/09/2010 1149 EDT At 1141 pt admitted to CVU per stretcher from echo status post FREEDOM. Bed in lowest position. Side rails up. Call tolentino within reach. NPO. SO at bedside. SO spoke c fellow via phone. Ora Ozuna - 11/09/2010 1126 EDT Transesophageal Echocardiogram Brief Post-Procedure Note Date of Procedure: 11/09/2010 Attending: Braulio Espinoza MD Fellow: Teddy Cabrera MD Pre-Op Diagnosis: PAF Post-Op Diagnosis: PAF Procedure: Transesophageal echocardiogram. Findings: no DANIELA thrombus Anesthesia Type: A moderate level of anesthesia/conscious sedation was used. Estimated Blood Loss: Unless otherwise noted, there was no blood loss, specimens removed, cultures obtained, or drains retained. Complications: None Disposition and Condition: The patient was sent back to the original unit in Good condition. ORA CABRERA MD 11/09/2010 11:26 Za Reddy RN - 11/09/2010 0951 EDT 0945 Pt is ready for procedure. Alert and oriented. 0/10 pain. at bedside. Celeste Monet LPN - 11/09/2010 0906 EDT 0850 Arrived walking to CVU. Dr. Lopez in speaking to pt. Consent signed. MM documented in this encounter H&P Notes Ora Cabrera - 11/09/2010 1034 EDT Sedation for Procedure History & Physical Date: 11/09/2010 Time: 10:35 Location: Echo Lab Planned Procedure: FREEDOM Chief Complaint/Indications for Procedure: AF pre ablation History: a Previous Complication with Sedation and/or Anesthesia? No Allergies: Allergies Allergen Reactions ??? Atenolol ??? Flecainide Other (See Comments) Hallucinations ??? Other - See Comments Calcium Channel Blockers All fresh fruit--anaphylaxix ??? Amiodarone ??? Keflex (Cephalexin) Nausea Only Current Medications: [...] History: Past Medical History Diagnosis Date ??? Cancer skin cancer on face and back ??? AF (atrial fibrillation) had ablation 2 yrs ago Social History: Past Surgical History Procedure Date ??? Tonsillectomy childhood ??? Nasal septum surgery 2007 History Substance Use Topics ??? Smoking status: Not on file ??? Smokeless tobacco: Not on file ??? Alcohol Use: Not on file Family History: Family History Problem Relation Age of Onset ??? High Cholesterol Mother ??? Heart Disease Father ??? Heart Disease Brother ??? Cancer Maternal Grandfather ??? Heart Disease Paternal Grandmother Review of Systems as pertinent: Physical: Vital Signs: BP 132/92 Pulse 75 Temp(Src) 36.2 ??C (97.2 ??F) (Tympanic) Resp 16 SpO2 98% Heart Examination: Cardiac Regularity: Regular [...] intake: 1800 Date of Last Liquid Intake: 11/08/10 Time of last solid intake: 1800 Date of last solid intake: 11/08/10 Patient Appropriate Candidate for Planned Sedation?: Yes documented in this encounter Miscellaneous Notes Scanned Note-Null - InpatientPhysician MD - 11/09/2010 0000 EDT canned Note-Null - Physician Alford MD - 11/09/2010 0000 EDT canned Note-Null - Inpatient, MD Doc - 11/09/2010 0000 EDT documented in this encounter Plan of Treatment Upcoming Encounters Date Type Specialty Care Team Description 09/13/2022 Office Visit Cardiology Shelton Smith MD [address] [place] [address] [phone] (Wo rk) documented as of this encounter Visit Diagnoses Not on filedocumented in this encounter Administered Medications Inactive Administered Medications - up to 3 most recent administrations Medication Order MAR Action Action Date Dose Rate Site fentanyl citrate (PF) 50 mcg/mL Given 11/09/2010 10:47 EDT 50 mc g injection 25-200 mcg 25-200 mcg, intravenous, ONCE PRN, 1 dose, Starting on Mon11/09/10 at 1007, Until Mon11/09/10 at 1047, Sedation, Routine, Intraprocedure midazolam (VERSED) injection 0.5-10 mg Given 11/09/2010 11:05 EDT 6 mg 0.5-10 mg, intravenous, ONCE PRN, 1 dose, Starting on Mon11/09/10 at 1007, Until Mon11/09/10 at 1105, Sedation, Routine, Intraprocedure sodium chloride 0.9 % (NS) infusion New Bag 11/09/2010 9:35 EDT 25 mL/hr 25 mL/hr at 25 mL/hr, 25 mL/hr, intravenous, CONTINUOUS, Starting on Mon11/09/10 at 1000, Until Mon11/09/10 at 1611, Routine, Preprocedure documented in this encounter Active and Recently Administered Medications Times are shown in EDT. Continuous Medication Order 11/07/2010 11/08/2010 11/09/2010 sodium chloride 0.9 % (NS) infusion (CANCELED) 0935 (New Bag - Provider: Za Nieves RN) at 25 mL/hr, Intravenous, CONTINUOUS, St arting Mon11/09/10 at 1000, Until Mon11/09/10 at 1611 PRN Medication Order 11/07/2010 11/08/2010 11/09/2010 fentanyl citrate (PF) 50 mcg/mL injection 25-200 mcg (COMPLETED) 1047 (Given - Provider: Dayanna Triana, ROBBY) 25-200 mcg, intravenous, ONCE PRN, 1 dos e, Starting on Mon11/09/10 at 1007, Until Mon11/09/10 at 1047, Sedation, Routine, Intraprocedure midazolam (VERSED) injection 0.5-10 mg (COMPLETED) 1105 (Given - Provider: Dayanna Triana, ROBBY) 0.5-10 mg, intravenous, ONCE PRN, 1 dose , Starting on Mon11/09/10 at 1007, Until Mon11/09/10 at 1105, Sedation, Routine, Intraprocedure documented in this encounter Orders Medications Ordered That Might Not Have Count Last Ord ered Date First Ordered Date Been Administered fentanyl citrate (PF) 50 mcg/mL injection 1 2010 25-200 mcg flumazenil (ROMAZICON) injection 0.2 mg 2 11/10/19 11 midazolam (VERSED) injection 0.5-10 mg 1 1 naloxone (NARCAN) injection 0.2-0.4 mg 2 1 sodium chloride 0.9 % (NS) infusion 1 11/09/2010 Nursing Count Last Ordered Date First Ordered Date ASSESS GAG REFLEX 1 11/09/2010 INSERT PERIPHERAL IV 2 11/09/2010 NOTIFY PHYSICIAN (SPECIFY) 1 11/09/2010 NURSING COMMUNICATION 2 11/09/2010 VITAL SIGNS 1 11/09/2010 Admission Count Last Ordered Date First Ordered Date ADMIT TO OUTPATIENT 1 11/09/2010 NOTIFY PPS OF DISCHARGE COMPLETE 1 11/09/2010 Discharge Count Last Ordered Date First Ordered Date DISCHARGE PATIENT 1 11/09/2010 documented in this encounter Care Teams Health Consultant Relationship Specialty Start Date End Date Danish Cao DO PCP - General 11/26/08 06/26/[address] [place] [address] documented as of this encounter
--- OUTSIDE RECORDS SUMMARY | 2022-02-07 01:36 | XMS_ITS | Encounter Summary ---
:1955 [place] [address] Care Team Providers Name Role Phone Tho Genao APRN Primary Care Provider Encounter Details Date Type Department Care Team Description 01/12/2022 Telephone Neurology at [facility] Kanwal Garcia APRN [address] [place] [address] [place] [address] [phone] (Wo rk) Social History Tobacco Use Types Packs/Day Years Used Date Former Smoker Cigarettes Quit: 1976 Smokeless Tobacco: Never Used Alcohol Use Standard Drinks/Week Comments Yes 0 (1 standard drink = 0.6 oz pure alcoho l) Occasional Alcohol Habits Answer Date Recorded How often do you have a drink containing alcohol? Not asked How many drinks containing alcohol do you have on a typical Not asked day when you are drinking? How often do you have six or more drinks on one occasion? No t asked Comment: Occasional 08/05/2019 Sex Assigned at Date Recorded Not on file documented as of this encounter Miscellaneous Notes Telephone Encounter - Ginna Osborne - 01/12/2022 11:34 AM EDT Copied from [facility] #[id number]. Topic: Specialty Dept CRMs - Appointment Needed >> Jan 12, 2022 9:09 AM Shoaib Vivas wrote: Appt Needed Specialist Kanwal Garcia Relationship (if other than patient-full name): Self Appt. Type Needed: FUV Reason for Visit: Patient called stating that he would like his 06/23/22 FUV to be with Annetta as he saw her Monday, 01/10 and would like to keep seeing her. Patient has been scheduled 06/23 with Kanwal Garcia. Please call patient to advise if this is possible at [phone]. documented in this encounter Plan of Treatment Upcoming Encounters Date Type Specialty Care Team Description 02/14/2022 Office Visit Dermatology Ace Hardwick MD [facility] [address] [place], [place] [address] (Wo rk) 03/08/2022 Appointment Radiology Oscar De Oliveira MD [facility] NEUROSURGERY [place], [place] [address] (Wo rk) 03/08/2022 Office Visit Neurosurgery Oscar De Oliveira MD [facility] NEUROSURGERY [place], [place] [address] (Wo rk) 06/23/2022 Office Visit Neurology Annetta Hernandez APRN [facility] Neurology [place], [place] [address] (Wo rk) documented as of this encounter Visit Diagnoses Not on filedocumented in this encounter Care Teams Medical Sales Associate Relationship Specialty Start Date End Date Tho Genao, PRINTING AGENT PCP - General Family Medicine 02/08/[address] [place] [address] [place] [address] documented as of this encounter
--- OUTSIDE RECORDS SUMMARY | 2022-02-07 01:36 | XMS_ITS | Encounter Summary ---
:1955 Author Organization [facility] [place] [address] Care Team Providers Name Role Phone Tho Genao APRN Primary Care Provider Encounter Details Date Type Department Care Team Description 01/10/2022 Office Visit Neurology at [facility] (new daily persistent headache); [facility] Cavernoma [address] [place] [address] [place] [address] [phone] (Wo rk) Social History Tobacco Use Types [...] Sign Reading Time Taken Comments Blood Pressure 141/76 01/10/2022 7:36 AM EDT Pulse 72 01/10/2022 7:36 AM EDT Temperature - - Respiratory Rate - - Oxygen Saturation - - Inhaled Oxygen Concentration - - Weight 68.9 kg (152 lb) 01/10/2022 7:36 AM EDT Height - - Body Mass Index 21.81 07/06/2021 2:16 PM EST documented in this encounter Progress Notes Annetta Hernandez APRN - 01/10/2022 8:00 AM EDT [facility] Headache Clinic Transfer of Care Patient name: Braulio Garcia Date of : 1955 PCP: Tho Genao APRN ID: Braulio Garcia is a 66 y.o. 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 His last visit was with Deanna Morales MD on 07/06/2021 where he was seen for migraine vs. new daily persistent headache attributed to cavernoma. HPI: Before 2016, Yonis never had any major headaches. He did report rare minor headaches that always had a correlate and did not impact his day. Yonis had an acute neurologic event Aug 10 2016: woke up with holocephalic MCCLELLAND, blurred vision, weakness in lower extremities, numbness and tingling of left extremity. Presented to [facility], HTN, MRI finding of cavernoma in brainstem. He is established in the NSGY clinic - no plan for surgery - last MRI scan stable due for repeat 04/2022. Per chart review, he was initially seen at [facility] by Dr. Le for headache. He was placed on magnesium, gabapentin and amitriptyline. He first saw Dr. Morales 10/26/2016. Workup included basic labs, LPand EEG. After multiple medication and a Botox trial, Yonis did not experience relief from headaches.Ultimately, he tried medical marijuana, which has worked great. Now, Yonis is able to do all of the activities he loves. He runs five miles each morning, mountain bikes, hikes, and works in the garden. He does still experience daily headache but feels as though it is manageable with medical marijuana. While his headaches used to dictate his time, activities, and per sonality, he now reports that he is in a good place. Presently, his headache occurs daily. It feels like pressure, or his head wanting to explode. The pain starts right above/between his eyebrows, moves through the temporalis bilaterally and then wrapsaround towards the occiput. The headache is mild upon waking, and intensifies as the day goes on. About mid afternoon, he uses his vape pen x1. This helps to alleviate the worst of the pain. He does not drive, bike or preform any strenuous/dangerous tasks after use. Occasionally, if schedule allows henaps for 1 hour in the afternoon. Overall, the headache presentation is consistent with no pattern changes - it is not getting better or worse. Negative for nausea, photophobia, phonophobia, whooshing in ears or visual changes surrounding headache. No prodrome. No associated autonomic symptoms. He does sometimes feel dizzy but not associated with headache. Patient Reported: MIDAS Responses 01/04/2022 Days missed school/work 0 Days productivity at work/school reduced 5 Days did not do household work 5 Days productivity related to housework reduced 0 Days missed family, social or leisure activities 0 Days had headache 90 Pain scale 8 MIDAS Score 10 (MIDAS grade II, mild disability) MIDAS Adjusted Score 10 Sleep: Could do better getting to bed early, does snore, takes naps in afternoon as able Triggers: None Caffeine: 1 cup coffee in am, cut down soda Trauma: None Psych: Doing well Impact on life: Greatly improved post medical marijuana - able to do all activities Current preventative regimen and frequency: - Medical marijuana Current abortive regimen and frequency: - Naproxen sodium 550 mg BID PRN - Vistaril 25-50 mg BID PRN - Both not being used Family History: Daughter: Migraines Social History: Family: (spouse Angela), has two children 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 Constitutional: 66 y.o. male appears stated age, well nourished, well developed, in no acute distress HEENT: Head atraumatic, normocephalic. Sclera non-icteric. CV: RRR, S1, S2, no murmurs, rubs or gallops. Radial pulses 2+ with no edema Resp: Chest rise and fall symmetric, all carlson clear with no adventitious sounds Integumentary: +cuts on extremities in various stages of healing Neuro: ?? MS: Alert and oriented to self, location, and date. Speech is spontaneous, smooth and articulate without dysarthria. Memory intact to the situation and disease history. Follows simple and complex commands. ?? CN: ?? PERRL, EOMI, visual carlson full ?? Facial sensation intact throughout ?? No facial asymmetry, movement intact ?? Hearing intact ?? Palate and tongue deferred below mask ?? SCM and trap strength intact. ?? Motor: Normal bulk and tone. No clonus. ?? UE: ?? Arm abduction at shoulder: 5/5 R, 5/5 L ?? Elbow extension: 5/5 R, 5/5 L ?? Elbow flexion: 5/5 R, 5/5 L ?? LE: ?? Knee extension: 5/5 R, 5/5 L ?? Knee flexion: 5/5 R, 5/5 L ?? Sensation: ?? UEs: Grossly intact to light touch ?? LEs: Grossly intact to light touch ?? Reflexes: ?? UE DTRs: ?? Biceps 2+R, 2+L ?? Brachioradialis 2+R, 2+L. ?? LE DTRs: ?? Patellar 2+R, 2+L ?? Coordination: Finger to nose without dysmetria/ataxia ?? Gait and Sation: Gait fluid, stable and steady without without difficulty or tremor. Appropriate stance and arm swing. Negative Romberg. +difficulty with tandem walk d/t chronic LLE injury Labs: Please see eRecord for full details Relevant Diagnostic Tests and Imaging: Please see eRecord for full details MRI Brain wwo Contrast 05/08/2019 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 Lumbar Puncture 12/09/2016 OP 17 cm H20 WBC 1, RBC 0, Protein 35, Glu 59 Assessment and plan: Braulio Garcia is a 66 y.o. male with a past medical history of atrial fibrillation (on Xarelto, s/p ablation x4 with implant monitor), cerebral cavernoma, dizziness, HTN, tachycardia and short term memory disorder who presents with new daily persistent headache likely d/t cavernoma/vascular abnormalities in midbrain. On exam today, Yonis expresses that he is doing great with his regimen of medical marijuana. He is without any new or concerning pattern changes to his headache. Neurologic exam normal. Yonis is insightful to the course of his headaches, and expresses that he has done a lot of work shifting expectationsand adjusting to chronic headache overtime. He is able to do the activities that he loves. Dr. Morales preformed an extensive workup 2016 including LP, EEG and lab work (TSH, T4) that was unremarkable.Yonis's headache presentation is free of migrainous, autonomic symptoms. 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 He will continue to follow with Dr. De Oliveira in the neurosurgery clinic with plan for repeat imaging - 04/2022. ?? He will also continue to work with cardiology at [facility] Bandar Velasco MD and EP for the management of his Atrial fibrillation - added the Xeralto to the regimen in December 2019. Briefly discussed with Yonis that fish oil could increase risk of bleeding. In the context of Xeralto use and known midbrain abnormalities, advised to reach out to cardiology regarding safety of fish oil. Did discuss Yonis's sleep quality and snoring. He does feel somewhat rested in the morning and does not have classic risk factors for sleep apnea. Provided education regarding sleep quality and impact on headache, memory, and HTN. Yonis will consider sleep referral and reach out if desired. Overall, no plans to change Yonis's regimen at this time. Advised to reach out to Headache Clinic or NSGY at any changes in headache features. Can consider MAB for prevention or reintroduction of Hydroxyzine PRN in the future if desired. Plan to see in June for renewal of medical marijuana card. 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 Annetta Hernandez APRN Department of Neurology [facility] Medications Tried ([x] checked have been tried in the past) Anti-Depressants: SSRI: [] Citalopram (Celexa) [] Escitalopram (Lexapro) [] Fluvoxamine (Luvox) [] Fluoxetine (Prozac) [] Paroxetine (Paxil) [] Sertraline (Zoloft) SNRI: [x] Desvenlafaxine (Pristiq/Khedezla) [] Duloxetine (Cymbalta) [] Levomilnacipran (Fetzima) [] Milnacipran (Savella) [] Venlafaxine (Effexor) TCA: [x] Amitriptyline (Elavil) SE: Strange dreams, mood swings [] Amoxapine [] Clomipramine (Anafranil) [] Desipramine (Norpramin) [] Doxepin (Sinequan) [] Imipramine (Tofranil) [] Maprotiline (Ludiomil) [] Nortriptiline (Pamelor) [] Protriptyline (Vivactil) [] Trimipramine (Surmontil) MAOI: [] Phenelzine (Nardil) [] Selegiline (Emsam) [] Tranylcypromine (Parnate) Atypicals: [] Bupropion (Wellbutrin) [] Mirtazapine (Remeron) [] Nefazodone (Serzone) [x] Trazodone SE: Strange dreams [] Vilazodone (Viibryd) [] Vortioxetine (Trintellix) Anti-Hypertensives: SHAN Inhibitors: [] Benazepril (Lotensin) [] Captopril [] Enalapril (Vasotec) [] Fosinopril [x] Lisinopril (Prinivil) [] Moexipril [] Perindopril (Aceon) [] Quinapril (Accupril) [] Ramipril (Altace) [] Trandolapril (Mavik) Alpha-1 Blockers [] Doxazosin [] Prazosin [] Tetrazosin Angiotensin II Receptor Blockers: [] Azilsartan (Edarbi) [x] Candesartan (Atacand) [] Eprosartan [] Irbesartan (Avapro) [] Losartan (Cozaar) [] Olmesartan (Benicar) [] Telmisartan (Misardis) [] Valsartan (Diovan) Beta Blockers [] Acebutolol (Sectral) [] Atenolol (Tenormin) [] Bisoprolol (Zebeta) [x] Metoprolol (Lopressor) [] Nadolol (Cogard) [] Nebivolol (Bystolic) [x] Propranolol (Inderal) [] Timolol Calcium Channel Blockers: [] Amlodipine (Norvasc) [] Bepridil (Vascor) [] Diltiazem (Cardiazem) [] Felodipine (Plendil) [] Nicardipine (Cardene) [] Nifedipine (Procardia) [] Nisoldipine (Sular) [x] Verapamil Diuretics: [] Furosemide (Lasix) [] Hydrochlorothiazide (Microzide) [] Spironolactone (Aldactone) Carbonic Anhydrase Inhibitors: [] Acetazolamide (Diamox) [] Methazolamide Anti-seizure: [] Carbamazepine (Tegretol) [x] Gabapentin (Neurontin) SE: Sedation, felt spacy [] Lamotrigine (Lamictal) [] Levetiracetam (Keppra) [] Oxcarbazepine (Trileptal) [] Phenobarbital [] Phenytoin (Dilantin) [] Pregabalin (Lyrica) [] Primidone [x] Sodium Valproate (Depakote) [] Topiramate (Topamax) [] Zonisamide (Zonegran) Monoclonal Antibodies: [] Aimovig [] Ajovy [] Emgality [] Vyepti Toxins: [x] OnabotulinumtoxinA (Botox) Ineffective: 2017 Gepants [] Ubrelvy (ubrogepant) [] Nurtec (rimegepant) [] Qulipta (atogepant) Ditans - high-affinity 5-HT1F receptor agonist [] Reyvow (lasmiditan) Supplements: [] Butterbur [] Coenzyme Q10 [] Feverfew [x] Magnesium [] Melatonin [] Migrelief (B2, mag, feverfew) [] Vitamin B2 (riboflavin) Other: [] Boswellia Zora [] Buspirone (Buspar) [] Doxycycline [] Lidocaine patch (Lidoderm) [] [place] [] Memantine (Namenda) [] Montelukast (Singulair) [] Naloxone [] Oxygen Triptans oral: [] Almotriptan (Axert) [] Eletriptan (Relpax) [] Frovatriptan (Frova) [] Naratriptan (Amerge) [] Rizatriptan (Maxalt) [] Sumatriptan (Imitrex) [] Sumatriptan/Naproxen (Treximet) [] Zolmitriptan (Zomig) Triptans nasal: [] Sumatriptan (Onzetra) nasal powder [] Sumatriptan (Imitrex) nasal spray [] Sumatriptan (Tosymra) nasal spray [] Zomig nasal spray Triptans injectable: [] Sumatriptan (Imitrex) solution 3 mg, 4 mg, 6 mg Ergotamines oral: [] Ergotamine/caffeine tab (Cafergot) [] Methergine [] Methylsergide (Sansert) Ergotamines nasal: [] Dihydroergotamine nasal spray (Migranal) Ergotamine Injectable: [] Dihydroergotamine solution for injection (DHE-45) Ergotamine suppository: [] Ergotamine/caffeine suppository (Migergot) NSAIDS: [] Aspirin [] Celecoxib (Celebrex) [] Diclofenac potassium [] Flurbiprofen [x] Ibuprofen (Advil) [] Indomethacin [] Ketoprofen [] Ketorolac (Toradol) [] Meloxicam (Mobic) [] Nabumetone [x] Naproxen sodium (Aleve) Anti-Histamines: [] Cyproheptadine (Periactin) [] Diphenhydramine (Benadryl) [x] Hydroxyzine (Vistaril/Atarax) Anti-emetics: [] Aprepitant (Emend) [] Chlorpromazine (Thorazine) [] Granisetron [] Metoclopramide (Reglan) [] Meclizine (Bonine) [] Ondansetron (Zofran) [] Prochlorperazine (compazine) [x] Promethazine (Phenergan) [] Scopolamine patch Muscle relaxers: [x] Baclofen (lioresal) [] Cyclobenzaprine (flexeril) [] Metaxalone (skelaxin) [] Methocarbamol (robaxin) [] Tizanidine (zanaflex) Steroids: [] Dexamethasone (Decadron) [] Methylprednisolone (Medrol) [] Prednisone [] Triamcinolone (Kenalog) Procedures: [] Auriculotemporal blocks [] Lumbar puncture [x] Occipital nerve blocks Ineffective: 2017 [] Sphenopalatine ganglion blocks [] Supraorbital blocks [] Trigger point injections Neuromodulation: [] Cefaly [] nVNS/Gammacore [] Spring TMS [] Nerivio Non-pharmacologic Tx [] Acupuncture [] Acupressure [] Biofeedback [] 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 [] Cognitive Behavioral Therapy [] Craniosacral therapy [] Massage therapy [] Physical therapy Benzodiazepines: [] Alprazolam (Xanax) [] Chlordiazepoxide (Librium) [] Clonazepam (Klonopin) [] Diazepam (Valium) [] Lorazepam (Ativan) [] Temazepam (Restoril) Combination/Other Analgesics: [x] Acetaminophen (Tylenol) [] Acetaminophen/aspirin/caffeine (Excedrin/Pamprin) [] Acetaminophen/caffeine/pyrilamine maleate (Midol) [] Acetaminophen/dichloralphenazone/ isometheptene (Midrin) Opioids/Narcotics/Controlled Substances: [] Acetaminophen/Codeine (Tylenol #3) [] Acetaminophen/Hydrocodone (Sunflower/Vicodin) [] Acetaminophen/Oxycodone (Percocet) [] Butalbital/aspirin/caffeine/codeine (Fiorinal with codeine) [] Butalbital/Aspirin/Caffeine (Fiorinal) [] Butalbital/acetaminophen/caffeine (Fioricet) [] Butorphanol (Ketamine/Stadol) [] Carisoprodol (Soma) [] Fentanyl [] Hydrocodone [] Hydromorphone (Dilaudid) [x] Marijuana [] Morphine (MS Contin) [] Oxycodone [] Tramadol (Ultram) [] Zolpidem (Ambien) [facility] Garcia APRN - 01/10/2022 8:00 AM EDT Neurology Headache Clinic Follow-up Patient Name: Braulio Garcia Patient ID: Braulio Garcia is a 66 y.o. right handed male with PMH afib status post ablation x 4, cerebral cavernoma, dizziness, hypertension, palpitations being followed in the headache clinic with new daily persistent headache with a migraine phenotype or headache attributed to his cavernous angioma bleeding. T his is a transfer of care visit. I was the supervising??JACQUELINE??working with??Neurology DYE ROOM HELPER,??Annetta Hernandez, in the??Headache??Clinic during this patient visit??for a follow up visit. ?? The level of??supervision for this patient visit was indirect supervision with direct supervision immediately available??(definition: [facility] Policy Statement on Medical Education, Supervision of GraduateMedical Trainees). ?? I was immediately available to??YEHUDA Littlejohn??for questions and discussion regarding this visit.? I have reviewed the encounter note details and level of service.??Please see??Annetta'ashleigh??note for more details ? Initial evaluation 10/26/2016: Patient was seen at [facility] by Dr. Le for MCCLELLAND, weakness and convulsions. He was placed on gabapentin and is using magnesium . He was then started on amitriptyline. ?? He is an active person, runs marathons and is very active. 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 He is very clear about the fact that he is very active and he has not your standards 60-year-old gentleman. ?? Aug 10 woke up that morning, stood up out of bed and then had to sit down. He had a massive holocephalic headache, with association of blurred vision with weakness in the b/l LE like all the strength was sucked out of me. down the left arm was sore and numbness and tingling in the hand - to the top of the are, he did not feel that there was any strength in the extremity - he is unsure if there was true weakness. Later it was more of a coordination problem. He did not lift or grab anything. He reports that he had no proceeding illness or abnormal activity. ?? He laid back down and told his that he was not feeling well. There was no energy. He slept all day and can not recall the day. He refused to go to the ER that evening. The next morning he did not feel well. He continued to have weakness and holocephalic headache. The hand tingling was getting better, but not resolved. He went to [facility] for evaluation and management. He can not recall being nauseated but it has become more nauseated. He can not recall if there was any photophobia, or phonophobia. We recalls that he did not ask for the lights to be dimmed. He does recall that there was problem with his ability to focus on things with his vision. It was fuzzy - and not diplopia that he was having. 156/100 BP. ?? At the [facility] ED EKG, CXR, Cervical spine X ray - degenerative disc disease ?? 1 week later PCP wanted CT head and up having an MRI brain with finding of cavernoma's in his brainstem. ?? He has been noted to be more hypertensive since this event. Form the day he started having headache it has been present - it is centralized down to the front of the head - it may bother him at the front of the eyes. He can get a throbbing pain in the right occipital region - even spiking. The general h eadache feels like a pressure quality - 5/10 MCCLELLAND intensity and can become worse with exertion. Elevation with the leaning down from the waist. He will get dizzy and lightheaded. His coordination will become off. 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 1 year ago he had a tilt table evaluation 10/19/2015 Pro-dromal symptoms that he previously has experienced were triggered in association with drop in blood pressure approximately 6 minutes after administering sublingual nitroglycerin (26 minutes into the tilt study), but today's symptoms were exaggerated compared to spells that he otherwise intermittently has had. ?? He apparently has been sensitive to a large number of medications, and he stated that he has not been diagnosed with hypertension up to now; also an evaluation in [place] is impending. With that in mind, I have red flagged this result because of hypertensive readings with a telephone call to his primary physician, Dr. Cao (message left with his nurse, Anna, to be passed to him when he returns tomorrow). He is having spikes in the headache on a daily basis - more relative to his activity level. He has not been at work since Aug 10, currently on short term disability. He reports daily nausea and thereis worsening with the exertion. He is never without them. ?? Magnesium and Gabapentin was initiated by Dr. 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 Then tried Amitriptyline 25mg qHS. He was placed on trazodone 25mg discontinued due to problems with sleep and dreams. This was helping with the left arm numbness that has continued. Since discontinuing the medications the headache is back and there ismore unsteadiness - he reports that it feels like his legs weigh a ton. He is not trusting his LE. He is cut down running to walking. He has been having more problems with sleep on these medications. ?? Patient reports that he was never a headache person. He did not really see anyone till 2006 when hisatrial fibrillation was recognized. ?? He has had one additional recurrence of his symptoms on September 28. ?? Patient has a personal hx of motion sickness, no abdominal migraine, has a h/o fainting related to the atrial fibrillation, has cold extremities Family Hx: daughter with migraines Aura: denies Cutaneous allodynia: yes Sleep: few hours at a time difficulty staying asleep Triggers: denies Prodrome: denies Caffeine: 1 cup of coffee per day - large Trauma: denies Abuse: denies Psych: denies Previous work-up: CT head 08/19/2016: No contrast - NAF ?? MRI brain 08/2016: There are probably 2 cavernomas within the brainstem which could affect the right trigeminal nerve nucleus. Extensive supratentorial white matter signal alteration which may represent advanced small vessel ischemic disease, but demyelination is a possibility. ?? Neurosurgery 10/11/2016 [facility] MRI scan, and this revealed 2 cavernomas that reportedly had not been seen in a prior MRI 10 years ago One would not operate on these unless there were a significant symptom. Radiosurgery has been very controversial in the treatment of these as there was some concern that radiosurgery may actually increase bleeding rates. ? Ref. Range 10/26/2016 14:56 Free T4 Latest Ref Range: 0.93 - 1.70 ng/dL 1.04 TSH Latest Ref Range: 0.27 - 4.20 mcIU/mL 2.83 ?? LP 12/09/2016 ([facility]) OP 17 cm H20 WBC 1, RBC 0, Protein 35, Glu 59 ?? Neurosurgery 05/08/2019: On review of the MRI, there continues to be 2 areas of susceptibility in the midbrain. ??1 of the seems to have a draining vein coming out of it suggesting a DVA.?The other may represent a small cavernoma. ??These appear stable from prior imaging. Given his lack of symptoms and stability on the scan, we can obtain another MRI in approximately 3 years. Interval History: Patient Reported: MIDAS Responses 01/04/2022 Days missed school/work 0 Days productivity at work/school reduced 5 Days did not do household work 5 Days productivity related to housework reduced 0 Days missed family, social or leisure activities 0 Days had headache 90 Pain scale 8 MIDAS Score 10 (MIDAS grade II, mild disability) MIDAS Adjusted Score 10 His last visit with neurosurgery in 2018, and recommendation for repeat brain MRI 2021. Medications: Current Outpatient Medications Medication Sig Dispense Refill ??? fluorouraciL (EFUDEX) 5 % Cream Apply thin layer twice daily to the scalp, right ear rough spot for 2-4 weeks; stop 5 days after erosions develop; no more 4 weeks. 40 g 0 ??? rivaroxaban (Xarelto) 20 mg Tablet Take 20 mg by mouth daily. ??? MARIJUANA INHL Inhale into the lungs. ??? fish oil-omega-3 fatty acids 1,000 mg Capsule Take 1 g by mouth daily. ??? lisinopril (PRINIVIL;ZESTRIL) 10 mg Tablet Take by mouth 2 times daily. 2 tablets in AM 1 tabletin PM Indications: 10mg am 20mg pm 0 ??? ascorbic acid, Vitamin C, (Vitamin C) 500 mg Tablet Take 500 mg by mouth daily. ??? multivitamin (THERAGRAN) Tablet Take 1 tablet by mouth daily. ??? DILTiazem (CARDIZEM) 30 mg Tablet Take 60 mg by mouth 2 times daily. No current facility-administered medications for this visit. Physical Exam: Patient Vitals for the past 24 hrs: Pulse BP 01/10/22 0736 72 141/76 Constitutional: Patient of apparent stated age, no acute distress Neuro: MS: Alert, oriented, clear language, no dysarthria, follows commands Motor: 5/5 strength throughout Gait: normal base and arm swing Labs: No results found for this or any previous visit (from the past 24 hour(s)). Diagnostic Tests and Imaging: Assessment and Plan: Braulio Garcia is a 66 y.o. right handed male with PMH afib status post ablation x 4, cerebral cavernoma, dizziness, hypertension, palpitations being followed in the headache clinic with new daily persistent headache with a migraine phenotype or headache attributed to his cavernous angioma bleeding. T his is a transfer of care visit. I was the supervising??TREKKING GUIDE??working with??Neurology DYE ROOM HELPER,??Annetta Hernandez, in the??Headache??Clinic during this patient visit??for a follow up visit. ?? The level of??supervision for this patient visit was indirect supervision with direct supervision immediately available??(definition: [facility] Policy Statement on Medical Education, Supervision of GraduateMedical Trainees). ?? I was immediately available to??YEHUDA Littlejohn??for questions and discussion regarding this visit.? I have reviewed the encounter note details and level of service.??Please see??Annetta's??note for more details ?? #new daily persistent headache ? R/t cavernoma Follow up June Kanwal Jose PHILLIPS [facility] Neurology Headache Clinic Medications Tried ([x]? checked have been tried in the past) ?? Anti-seizure: []? Acetazolamide (Diamox) [x]? Gabapentin (Neurontin) (SE sedation and feeling spacy) []? Levetiracetam (Keppra) [x]? Sodium Valproate (Depakote) []? Topiramate (Topamax) []? Zonisamide (Zonegran) Anti-Depressants: SNRI: [x]? Desvenlafaxine (Pristiq/Khedezla) TCA: [x]? Amitriptyline (Elavil) (SE vivid dreams - felt like an incredible adventure and then woke up after 10 minutes and was very wide awake - this was a pattern) (SE mood swings) []? Nortriptiline (Pamelor) Atypicals: [x]? Trazodone (SE vivid dreams - felt like an incredible adventure and then woke up after 10 minutes and was very wide awake - this was a pattern) ?? Anti-Hypertensives: SHAN Inhibitors: [x]? Lisinopril (Prinivil) Angiotensin II Receptor Blockers: [x]? Candesartan (Atacand) (did not feel well on the medication) Beta Blockers [x]? Metoprolol (Lopressor) [x]? Propranolol (Inderal) Calcium Channel Blockers: [x]? Diltiazem (Cardiazem) [x]? Verapamil ?? Ergotamines: []? Dihydroergotamine nasal spray (Migranal) []? Dihydroergotamine solution for injection (DHE-45) ?? Triptans: []? Sumatriptan (Imitrex) PO []? Sumatriptan (Imitrex) NS []? Sumatriptan (Imitrex) SQ injection []? Sumatriptan (Onzetra) Nasal powder []? Sumatriptan/Naproxen (treximet) []? Eletriptan (Relpax) []? Zomig nasal spray []? Zolmitriptan (Zomig) []? Rizatriptan (Maxalt) []? Almotriptan (Axert) []? Naratriptan (Amerge) []? Frovatriptan (Frova) ?? Supplements: []? Coenzyme Q10 []? Feverfew [x]? Magnesium []? Melatonin []? Vit. B2 (riboflavin) ?? NSAIDS: [x]? Aspirin []? Celecoxib (Celebrex) []? Diclofenac potassium [x]? Ibuprofen (Advil) []? Indomethacin []? Ketoprofen []? Ketorolac (Toradol) []? Meloxicam (Mobic) []? Nabumetone [x]? Naproxen sodium (Aleve) [x]? Acetaminophen (tylenol) ?? Anti-Histamines: []? Cyproheptadine (Periactin) []? Diphenhydramine (Benadryl) [x]? Hydroxyzine (vistaril/atarax) ?? Anti-emetics: []? Aprepitant (Emend) []? Granisetron []? Metoclopramide (Reglan) []? Ondansetron (Zofran) []? Meclizine (Bonine) [x]? Prochlorperazine (compazine) []? Promethazine (Phenergan) []? Chlorpromazine (thorazine) ?? Muscle relaxers: [x]? Baclofen (lioresal) []? Cyclobenzaprine (flexeril) []? Metaxalone (skelaxin) []? Methocarbamol (robaxin) []? Tizanidine (zanaflex) ?? Steroids: []? Dexamethasone (decadron) []? Prednisone ?? Other Headache Management: []? Aimovig []? Doxycycline []? Memantine (Namenda) []? Montelukast (Singulair) [x]? OnabotulinumtoxinA (Botox) Date ??Procedure ??MIDAS 01/18/2017 ??Botox # 1 ??156, 90/90 MCCLELLAND days, 01/30 MCCLELLAND intensity 04/11/2017 ??Botox # 2 ??160, 90/90 MCCLELLAND days, 8/10 MCCLELLAND intensity 07/06/2017 ??Botox # 3 (185 units) ??180, 90/90 MCCLELLAND days, 7/10 MCCLELLAND intensity ?Opioids/Narcotics/Controlled Substances: []? Butorphanol (Ketamine/Stadol) [x]? Marijuana ?? Procedures: []? Auriculotemporal blocks []? Lumbar puncture [x]? Occipital nerve blocks 02/09/2017 - no change in the headache []? Sphenopalatine ganglion blocks []? Supraorbital blocks []? Trigger point injections ?? Neuromodulation: []? Cefaly []? nVNS/Gammacore []? Spring TMS ?? Non-pharmacologic Tx []? Acupuncture []? Acupressure []? Biofeedback []? 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 []? Cognitive Behavioral Therapy []? Massage therapy []? Physical therapy []? Craniosacral therapy documented in this encounter Plan of Treatment Upcoming Encounters Date Type Specialty Care Team Description 02/14/2022 Office Visit Dermatology Ace Hardwick MD [facility] [address] [place] [id number] (Wo rk) 03/08/2022 Appointment Radiology Oscar De Oliveira MD [facility] NEUROSURGERY [place], [place] [address] (Wo rk) 03/08/2022 Office Visit Neurosurgery Oscar De Oliveira MD [facility] NEUROSURGERY [place], [place] [address] (Wo rk) 06/23/2022 Office Visit Neurology Annetta Hernandez APRN [facility] Neurology [place], [place] [address] (Wo rk) documented as of this encounter Visit Diagnoses Diagnosis NDPH (new daily persistent headache) New daily persistent headache Cavernoma Congenital vascular hamartomas documented in this encounter Care Teams Landing Worker Relationship Specialty Start Date End Date Tho Genao, TREKKING GUIDE PCP - General Family Medicine 02/08/[address] [place] [address] documented as of this encounter
--- OUTSIDE RECORDS SUMMARY | 2022-02-07 01:36 | XMS_ITS | Encounter Summary ---
:1955 [place] [address] Care Team Providers Name Role Phone Tho Genao APRN Primary Care Provider Encounter Details Date Type Department Care Team Description 07/06/2021 Office Visit Neurology at [facility], Deanna Childs MD NDPH (new daily persistent headache); Road [facility] Intractable chronic migraine without aura and with status migrainosus; [address] [place] NE[place]Y DE[place] [address] [place] [address] [phone] Social History Tobacco Use Types Packs/Day Years [...] Sign Reading Time Taken Comments Blood Pressure 122/85 07/06/2021 2:16 PM EST Pulse 71 07/06/2021 2:16 PM EST Temperature - - Respiratory Rate - - Oxygen Saturation - - Inhaled Oxygen Concentration - - Weight 68.9 kg (152 lb) 07/06/2021 2:16 PM EST Height 177.8 cm (5' 10) 07/06/2021 2:16 PM EST reporte d Body Mass Index 21.81 07/06/2021 2:16 PM EST documented in this encounter Patient Instructions Patient InstructionsDeanna Morales MD - 07/06/2021 2:30 PM EST Office Number: ([facility] Clinic nurse number for most issues and prescription refills My Nurse: Karishma Moulton RN For Prescription Refills: Please call for refills when you have one month left on your medication, we have 48 hours from the time you call to get the medication refill placed. Please call the clinic rather then using [employer]- or e-mail, as the communication is better in real time. Thank you and I look forward to working with you. Book: [facility] (on ebay) Isidoro/ [place]/Betzy (editors) the 5th or 6th edition Keep your Calendar and bring them to your appointment please. Diagnosis: New Daily persistent Headache - migraine without aura phenotype Headache attributed to cavernous angioma - For Headache Prevention: Medical MJ Look into eatables and vaping as options for use - For mild to moderate MCCLELLAND Naproxen sodium 550mg twice a day as needed Vistaril 25 - 50mg twice a day as needed Future considerations: Doxycycline Aimovig - MRI brain with [facility] - in 3 years (04/2022) - continue to follow with Dr. De Oliveira in Neurosurgery Dr. Morales will be leaving the [facility] in Jun 2021. Follow-up will be arranged with Kanwal Garcia APRN in 6 months - 60 min Transfer of Care documented in this encounter Progress Notes Deanna Morales MD - 07/06/2021 2:30 PM EST Neurology Headache Clinic Follow-up Patient Name: Braulio Garcia Patient ID: Braulio Garcia is a 65 y.o. right handed male with Atrial fibrillation status post ablation xc 4 (now on Xeralto), cerebral cavernoma, dizziness, hypertension, palpitations being followed in the headache clinic with new daily persistent headache with a migraine phenotype or headache attributed to his cavernous angioma bleeding. Initial evaluation 10/26/2016: Patient was seen at [facility] by Dr. Le for MCCLELLAND, weakness and convulsions. He was placed on gabapentin and is using magnesium . He was then started on amitriptyline. He is an active person, runs marathons and is very active. 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 He is very clear about the fact that he is very active and he has not your standards 60-year-old gentleman. Aug 10 woke up that morning, stood [...] had no proceeding illness or abnormal activity. He laid back down and told his that he was not feeling well. There was no energy. He slept all day and can not recall the day. He did not eat all day. He did not try the stairs, he was able to usea pee bottle - he did not have to get up. He did come upstairs and ate dinner. He refused to go to the ER that evening. The next morning he did not feel well. He continued to have weakness and holocephalic headache. The hand tingling was getting better, but not resolved. He went to [facility] for evaluationand management. He can not recall being nauseated [...] diplopia that he was having. 156/100 BP. At the [facility] ED EKG, CXR, Cervical spine X ray - degenerative disc disease 1 week later PCP wanted CT head and up having an MRI brain with finding of cavernoma's in his brainstem. He has been noted to be more [...] up to now; also an evaluation in [place] is impending. With that in mind, I [...] the exertion. He is never without them. Magnesium and Gabapentin was initiated by Dr. [...] more problems with sleep on these medications. Patient reports that he was never a headache person. He did not really see anyone till 2006 when hisatrial fibrillation was recognized. He has had one additional recurrence of his symptoms on September 28. Patient has a personal hx of motion [...] CT head 08/19/2016: No contrast - NAF MRI brain 08/2016: There are probably 2 cavernomas within the brainstem which could affect the right trigeminal nerve nucleus. Extensive supratentorial white matter signal alteration which may represent advanced small vessel ischemic disease, but demyelination is a possibility. Neurosurgery 10/11/2016 [facility] MRI scan, and this revealed 2 cavernomas that reportedly had not been seen in a prior MRI 10 years ago One would not operate on these unless there were a significant symptom. Radiosurgery has been very controversial in the treatment of these as there was some concern that radiosurgery may actually increase bleeding rates. Ref. Range 10/26/2016 14:56 Free T4 Latest Ref Range: 0.93 - 1.70 ng/dL 1.04 TSH Latest Ref Range: 0.27 - 4.20 mcIU/mL 2.83 LP 12/09/2016 ([facility]) OP 17 cm H20 WBC 1, RBC 0, Protein 35, Glu 59 Neurosurgery 05/08/2019: On review of the MRI, there continues to be 2 areas of susceptibility in the midbrain. 1 of the seems to have a draining vein coming out of it suggesting a DVA. The other may represent a small cavernoma. These appear stable from prior imaging. Given his lack of symptoms and stability on the scan, we can obtain another MRI in approximately 3 years. Current Headache Medications: Medical MJ - vaping once a day Xeralto 20 mg daily Lisinopril 10mg BID Diltiazem 60mg BID Aleve PRN No h/o renal stones or asthma Other providers: [facility] Cardiology Dr. Velasco Interval History: He is presenting with his today Everything is great No change Medications: Current Outpatient Medications Medication Sig Dispense Refill ??? rivaroxaban (Xarelto) 20 mg Tablet Take 20 mg by mouth daily. ??? MARIJUANA INHL Inhale into the lungs. ??? fish oil-omega-3 fatty acids 1,000 mg Capsule Take 1 g by mouth daily. ??? lisinopril (PRINIVIL;ZESTRIL) 10 mg Tablet Take by mouth 2 times daily. 2 tablets in AM 1 tabletin PM Indications: 10mg am 20mg pm 0 ??? ascorbic acid, vitamin C, (VITAMIN C) 500 mg Tablet Take 500 mg by mouth daily. ??? multivitamin (THERAGRAN) Tablet Take 1 tablet by mouth daily. ??? DILTiazem (CARDIZEM) 30 mg Tablet Take 60 mg by mouth 2 times daily. No current facility-administered medications for this visit. Physical Exam: Patient Vitals for the past 24 hrs: Pulse BP 07/06/21 1416 71 122/85 Constitutional: Patient of apparent stated age, no acute distress HEENT:no occipital tenderness to palpation Neuro: MS: Alert, oriented, clear language, no dysarthria, follows commands CN: PERRL, EOMI, no facial asymmetry, tongue is midline Motor: no pronator drift 5/5 strength throughout Coordination: intact finger to nose Gait: normal base and arm swing Labs: No results found for this or any previous visit (from the past 24 hour(s)). Diagnostic Tests and Imaging: As in HPI Assessment and Plan: Braulio Garcia is a 65 y.o. right handed male with Atrial fibrillation status post ablation xc 4 (now on Xeralto), cerebral cavernoma, dizziness, hypertension, palpitations being followed in the headache clinic for new daily persistent headache with a migraine phenotype or headache attributed to his c avernous angioma bleeding. Patient is continuing to do very well with his medical marijuana. No change in medications today. Heis aware that he can have a change in therapy whenever he desires. The next step would be the use ofmonoclonal antibodies against CGRP or its receptor. He will continue to follow with Dr. De Oliveira in the neurosurgery clinic. He will have repeat imaging next year - 04/2022. He will also continue to work with Cardiology and EP for the management of his Atrial fibrillation -added the Xeralto to the regimen in December 2019 - no changes Dr. Morales will be leaving the [facility] in Jun 2021. Follow-up will be arranged with Kanwal Garcia APRN in 6 months - 60 min Transfer of Care Appt Duration 30 minutes # New Daily persistent Headache - migraine without aura phenotype Headache attributed to cavernous angioma - Keep a Headache diary - MRI brain with [facility] - in 3 years (04/2022) - continue to follow with Dr. De Oliveira in Neurosurgery - For Headache Prevention: Medical MJ - renewed today - For mild to moderate MCCLELLAND Naproxen sodium 550mg twice a day as needed Vistaril 25 - 50mg twice a day as needed Future considerations: Henry clonal antibodies Doxycycline Repeat ONB # atrial fibrillation - f/u with Cardiology and PCP Deanna Morales MD [facility] Neurology Medications Tried ([x] checked have been tried in the past) Anti-seizure: [] Acetazolamide (Diamox) [x] Gabapentin (Neurontin) (SE sedation and feeling spacy) [] Levetiracetam (Keppra) [x] Sodium Valproate (Depakote) [] Topiramate (Topamax) [] Zonisamide (Zonegran) Anti-Depressants: SNRI: [x] Desvenlafaxine (Pristiq/Khedezla) TCA: [x] Amitriptyline (Elavil) (SE vivid dreams - felt like an incredible adventure and then woke up after 10 minutes and was very wide awake - this was a pattern) (SE mood swings) [] Nortriptiline (Pamelor) Atypicals: [x] Trazodone (SE vivid dreams - felt like an incredible adventure and then woke up after 10 minutesand was very wide awake - this was a pattern) Anti-Hypertensives: SHAN Inhibitors: [x] Lisinopril (Prinivil) Angiotensin II Receptor Blockers: [x] Candesartan (Atacand) (did not feel well on the medication) Beta Blockers [x] Metoprolol (Lopressor) [x] Propranolol (Inderal) Calcium Channel Blockers: [x] Diltiazem (Cardiazem) [x] Verapamil Ergotamines: [] Dihydroergotamine nasal spray (Migranal) [] Dihydroergotamine solution for injection (DHE-45) Triptans: [] Sumatriptan (Imitrex) PO [] Sumatriptan (Imitrex) NS [] Sumatriptan (Imitrex) SQ injection [] Sumatriptan (Onzetra) Nasal powder [] Sumatriptan/Naproxen (treximet) [] Eletriptan (Relpax) [] Zomig nasal spray [] Zolmitriptan (Zomig) [] Rizatriptan (Maxalt) [] Almotriptan (Axert) [] Naratriptan (Amerge) [] Frovatriptan (Frova) Supplements: [] Coenzyme Q10 [] Feverfew [x] Magnesium [] Melatonin [] Vit. B2 (riboflavin) NSAIDS: [x] Aspirin [] Celecoxib (Celebrex) [] Diclofenac potassium [x] Ibuprofen (Advil) [] Indomethacin [] Ketoprofen [] Ketorolac (Toradol) [] Meloxicam (Mobic) [] Nabumetone [x] Naproxen sodium (Aleve) [x] Acetaminophen (tylenol) Anti-Histamines: [] Cyproheptadine (Periactin) [] Diphenhydramine (Benadryl) [x] Hydroxyzine (vistaril/atarax) Anti-emetics: [] Aprepitant (Emend) [] Granisetron [] Metoclopramide (Reglan) [] Ondansetron (Zofran) [] Meclizine (Bonine) [x] Prochlorperazine (compazine) [] Promethazine (Phenergan) [] Chlorpromazine (thorazine) Muscle relaxers: [x] Baclofen (lioresal) [] Cyclobenzaprine (flexeril) [] Metaxalone (skelaxin) [] Methocarbamol (robaxin) [] Tizanidine (zanaflex) Steroids: [] Dexamethasone (decadron) [] Prednisone Other Headache Management: [] Aimovig [] Doxycycline [] Memantine (Namenda) [] Montelukast (Singulair) [x] OnabotulinumtoxinA (Botox) Date Procedure MIDAS 01/18/2017 Botox # 1 156, 90/90 MCCLELLAND days, 7/10 MCCLELLAND intensity 04/11/2017 Botox # 2 160, 90/90 MCCLELLAND days, 8/10 MCCLELLAND intensity 07/06/2017 Botox # 3 (185 units) 180, 90/90 MCCLELLAND days, 7/10 MCCLELLAND intensity Opioids/Narcotics/Controlled Substances: [] Butorphanol (Ketamine/Stadol) [x] Marijuana Procedures: [] Auriculotemporal blocks [] Lumbar puncture [x] Occipital nerve blocks 02/09/2017 - no change in the headache [] Sphenopalatine ganglion blocks [] Supraorbital blocks [] Trigger point injections Neuromodulation: [] Cefaly [] nVNS/Gammacore [] Spring TMS Non-pharmacologic Tx [] Acupuncture [] Acupressure [] Biofeedback [] Mounter Flutes And Piccolos [] Cognitive Behavioral Therapy [] Massage therapy [] Physical therapy [] Craniosacral therapy documented in this encounter Plan of Treatment Upcoming Encounters Date Type Specialty Care Team Description 02/14/2022 Office Visit Dermatology Ace Hardwick MD [facility] DR [address], [place] [address] (Wo rk) 03/08/2022 Appointment Radiology Oscar De Oliveira MD [facility] NEUROSURGERY [place], [place] [address] (Wo rk) 03/08/2022 Office Visit Neurosurgery Oscar De Oliveira MD [facility] NEUROSURGERY [place], [place] [address] (Wo rk) 06/23/2022 Office Visit Neurology Annetta Hernandez APRN [facility] DR[facility] Neurology [place], [place] [address] (Wo rk) documented as of this encounter Visit Diagnoses Diagnosis NDPH (new daily persistent headache) New daily persistent headache Intractable chronic migraine without aur a and with status migrainosus Chronic migraine without aura, with intr actable migraine, so stated, with status migrainosus Cavernoma Congenital vascular hamartomas documented in this encounter 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
--- OUTSIDE RECORDS SUMMARY | 2022-02-07 01:36 | XMS_ITS | Encounter Summary ---
:1955 Author Organization [facility] [place] [address] Care Team Providers Name Role Phone Uriah Davis MD Primary Care Provider Reason for Referral Consultation (Routine) - Closed Specialty Diagnoses / Procedures Referred By Contact Refer red To Contact Neurosurgery Diagnoses Cavernoma Patient previously seen 09/2016 - f/u with the cavenomas int he brainstem Deanna Morales MD [facility] Neurosurgery 3c [facility] [place] [address] [place] [address] Referral ID Status Reason Start Date Expiration Date Visits V isits Requested Authorized [id number] Closed Consult, 02/15/2019 02/15/2020 1 1 Test & Treat iagnostic Test (Routine) - Closed Specialty Diagnoses / Procedures Referred By Contact Refer red To Contact Radiology Diagnoses Cavernoma Deanna Morales MD [facility] Rad Mri Procedures MRI Brain wwo Contrast (Generic) [facility] [place] [address] [place] [address] Referral ID Status Reason Start Date Expiration Date Visits V isits Requested Authorized [id number] Closed Specialty 05/01/2019 06/29/2019 1 1 Service Requested Encounter Details Date Type Department Care Team Description 02/15/2019 Office Visit Neurology at [facility] Deanna Morales MD Cavernoma (Primary Dx); [facility] (new daily persistent headache); Drive DR 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 Not asked How many drinks containing alcohol do you have on a Not aske d typical day when you are drinking? How often do you have six or more drinks on one Not asked occasion? Comment: occasional beer 08/02/2018 Sex Assigned at Date Recorded Not on file documented as of this encounter Last Filed Vital Signs Vital Sign Reading Time Taken Comments Blood Pressure 126/87 02/15/2019 9:47 AM EDT Pulse 70 02/15/2019 9:47 AM EDT Temperature - - Respiratory Rate - - Oxygen Saturation - - Inhaled Oxygen Concentration - - Weight 68.8 kg (151 lb 9.6 oz) 02/15/2019 9:47 AM With shoes EDT Height 177.8 cm (5' 10) 02/15/2019 9:47 AM Reported EDT Body Mass Index 21.75 02/15/2019 9:47 AM EDT documented in this encounter Patient Instructions Patient InstructionsDeanna Morales MD - 02/15/2019 10:00 AM EDT Office Number: (Yaima - Otolaryngology Teacher) Clinic nurse number for most issues and prescription refills (Karishma) (Ayde) (Nicole) For Prescription Refills: Please call for refills when you have one month left on your medication, we have 48 hours from the time you call to get the medication refill placed. Please call the clinic rather then using - or e-mail, as the communication is better [...] Future considerations: Doxycycline Aimovig - MRI brain - Re-establish care with Neurosurgery for monitoring of cavernous Angioma Follow-up with Dr. Morales in 6 months Exciting News! Headache clinic is moving Appointments made on or after Apr 01 will be at the [facility] location. Address: [address] [place] [address] The facility is located [address] in [place], [place]. This location is about 3 miles from [facility] and will be faster to reach if you are coming to [place] via [address]. You can find directions to our [facility] location online at: [email or web address]. There is plenty of free parking and easy access to the building. The Headache Centerwill be located on Level 2. documented in this encounter Progress Notes Deanna Morales MD - 02/15/2019 10:00 AM EDT Neurology Headache Clinic Follow-up Patient Name: Braulio Garcia Patient ID: Braulio Garcia is a 63 y.o. right handed male with Atrial fibrillation status post ablation xc 4, cerebral cavernoma, dizziness, hypertension, palpitations presenting with his Angela for evaluationfollowed in the headache clinic for new daily persistent headache with a migraine phenotype or headache attributed to his cavernous angioma bleeding. Initial evaluation 10/26/2016: Patient was seen at [facility] by Dr. Le for MCCLELLAND, weakness and convulsions. He was placed on gabapentin and is using magnesium . He was then started on amitriptyline. He is an active person, runs marathons and is very active. 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 He is very clear about the fact [...] better, but not resolved. He went to [facility] for evaluationand management. He can not recall [...] he was having. 156/100 BP. At the [facility] ED EKG, CXR, Cervical spine X ray [...] up to now; also an evaluation in [place] is impending. With that in mind, I [...] but demyelination is a possibility. Neurosurgery 10/11/2016 [facility] MRI scan, and this revealed 2 cavernomas [...] 0.27 - 4.20 mcIU/mL 2.83 LP 12/09/2016 ([facility]) OP 17 cm H20 WBC 1, RBC 0, Protein 35, Glu 59 Current Headache Medications: Medical MJ Lisinopril 5mg daily Diltiazem 30mg daily Aleve PRN No h/o renal stones or asthma Other providers: [facility] Cardiology Dr. Velasco Interval History: Patient is presenting with his for f/u evaluation He reports that things are getting better He is more confident then he previously was - the excitement and desire is back He is running 5-6 miles a day in the morning He has been on a mountain biking He has been gardening and logging He brings in his headache calendar Jul 2018 - he has been helping in the sugar [employer] September 2018 he reports hat he blacked out He was getting dehydrated - down in the cellar around dinner time Bent down to pet the cat Then he is on the floor He was out for only 1 second Got up and felt back to himself He did not hit his head He looked at the event - he went into A fib He had looked that he had switched bags of MJ (he had grown all of these) He had recurrence of migraine sx He had fewer buds in the bag - it was less potent He has a planned cardiology evaluation in Feb 2019 He continues to have a daily MCCLELLAND 30/30 days per month > 12 hours per day while awake. They are very attenuated with the MJ He is continuing to Vape once in the afternoon - this will get 0/10 and will allow to get the good night sleep Then it will start ramping up mid day He is also noting that there is a generation from the base of the head and neck He also recalls that his cavernomas are in the location He really wants to know why He reports that he is feeling like he is continuing to make nowak with his life and management of his headaches Medications: Current Outpatient Medications Medication Sig Dispense Refill ??? MARIJUANA ORAL Take by mouth daily. ??? naproxen sodium (ANAPROX DS) 550 mg Tablet Take one 550 mg tablet by mouth for headache as needed. May repeat once after 4 hours if needed. NTE 2 tabs in 24 hours. Do not use daily. 60 tablet 11 ??? lisinopril (PRINIVIL;ZESTRIL) 10 mg Tablet Take by mouth 2 times daily. Indications: 10mg am 20mg pm 0 ??? hydrOXYzine (VISTARIL) 25 mg Capsule Take 25 mg by mouth as needed. 0 ??? ascorbic acid, vitamin C, (VITAMIN C) 500 mg Tablet Take 500 mg by mouth daily. ??? multivitamin (THERAGRAN) Tablet Take 1 tablet by mouth daily. ??? DILTiazem (CARDIZEM) 30 mg Tablet Take 60 mg by mouth 2 times daily. ??? aspirin 81 mg EC tablet Take 81 mg by mouth daily. No current facility-administered medications for this visit. Physical Exam: Most Recent Vitals: 02/15/19 0947 BP: 126/87 Pulse: 70 Constitutional: Patient of apparent stated age, no acute distress HEENT: R>L occipital tenderness to palpation Neuro: MS: Alert, [...] Assessment and Plan: Braulio Garcia is a 63 y.o. right handed male with Atrial fibrillation status post ablation xc 4, cerebral cavernoma, dizziness, hypertension, palpitations presenting with his Angela for evaluationfollowed in the headache clinic for new daily persistent headache with a migraine phenotype or headache attributed to his cavernous angioma bleeding. Patient is continuing to do very well with his medical marijuana. He is becoming more confident in the activities that he can participate in. He does not want to change his current medication regimen. He is aware that there is anew class of medication that he can try in the future - monoclonal antibodies against CGRP and its receptor. We looked at his previous MRI brain and cavernoma's that were better characterized approximately 2 years ago. He had a evaluation with Dr. De Oliveira in the neurosurgery clinic. That provider is no longerhere and he will need repeat imaging this year. It is supposed to be done in a 2-year interval initially and if there is no change then a 5-year interval. I spoke with a colleague Dr. Schnedier in the neurosurgery department who asked for the patient to be reconsulted to the neurosurgery department to be followed with his cavernoma. I have ordered the MRI brain and have requested SWI imaging as well to look for bleeding. Patient continues to have a loop recorder in place, he had one episode of 17 days of atrial fibrillation found on the loop recorder which correlated with a syncopal event. He has follow-up with his unscrambler in February to rediscuss whether additional intervention is warranted at this time. I look forward to seeing him back in July 2019 to renew his medical marijuana card. Appt Duration 25 minutes More the 50% of the face to face encounter time was spent in therapeutic planning, counseling and coordination of care. # New Daily persistent Headache - migraine without aura phenotype Headache attributed to cavernous angioma - Keep a Headache diary - MRI brain with SWI - Re-establish care with Neurosurgery for monitoring of cavernous Angioma - For Headache Prevention: Medical MJ - For mild to moderate MCCLELLAND Naproxen sodium 550mg twice a day as needed Vistaril 25 - 50mg twice a day as needed Future considerations: Galax clonal antibodies Doxycycline Repeat ONB # atrial fibrillation - f/u with Cardiology and PCP Follow-up with Dr. Morales in 6 month Deanna Morales MD [facility] Neurology Medications Tried ([x] checked have been [...] [] Acupuncture [] Acupressure [] Biofeedback [] Gas Controller [] Cognitive Behavioral Therapy [] Massage therapy [] Physical therapy [] Craniosacral therapy documented in this encounter Plan of Treatment Upcoming Encounters Date Type Specialty Care Team Description 02/14/2022 Office Visit Dermatology Ace Hardwick MD [facility] DR JENNIFER CASTELLANO-DERMAT [place] [id number] (Wo rk) 03/08/2022 Appointment Radiology Oscar De Oliveira MD [facility] NEUROSURGERY [place], [place] [address] (Wo rk) 03/08/2022 Office Visit Neurosurgery Oscar De Oliveira MD [facility] NEUROSURGERY [place], [place] [address] (Wo rk) 06/23/2022 Office Visit Neurology Annetta Hernandez APRN [facility] DR[address] Neurology [place], [place] [address] (Wo rk) Scheduled Referrals Name Type Priority Associated Order Schedule Diagnoses Referral to Outpatient Referral Routine Cavernoma Ordered: Neurosurgery 02/15/2019 documented as of this encounter Results MRI Brain wwo Contrast (Generic) (05/08/2019 10:42 AM EDT) Anatomical Region Laterality Modality Head Magnetic Resonance Specimen (Source) Anatomical Location Collection Method / Collectio n Time Received Time / Laterality Volume Impressions 05/08/2019 2:04 PM EDT 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 Thank you for letting us participate in the care of this patient. For questions regarding this report, please contact e number below. ? Electronically signed by: Chaitanya Landaverde MD, [facility] ([phone]), at 05/08/2019 2:04 PM Narrative 05/08/2019 2:04 PM EDT EXAMINATION: MRI BRAIN WWO CONTRAST (GENERIC) CLINICAL HISTORY: patient with know brai n stem cavernomas - f/u evaluation > 2 years after iniail identification, sia ledezma do SWI sequencing to look for bleed, has loop recoder in place TECHNIQUE: MRI of the brain was performed before an d after the intravenous administration of 14cc Dotarem. COMPARISON: 09/10/2016 FINDINGS: No restricted diffusion. There is eviden ce of susceptibility artifact projecting in the right anterior superior timothy and inferior midbrain on image 38 of series 3 and image 30 of series 5. There is an additional area of susceptibility artifact projecting in the posterior gorge s at the level of the superior cerebellar peduncle just to the right of midline on image 23 of series 5. There is a D medusa and age ranging vein assoc iated with the more posterior right paramedian pontine lesion best seen on i mages 68 through 76 of series 11. These findings are similar to exam of . There are no new areas of hemoglobin deg radation products on the susceptibility sequence within the brain parenchyma. Stable pattern of supratentorial white m atter changes periventricular region, centrum semiovale and subcortical region s. No new brain parenchymal signal changes. Similar appearance of enhancement associ ated with developmental venous anomaly with D7 in the posterior timothy. No new ar ea of abnormal enhancement identified. No mass, mass effect, midline shift or e xtra-axial fluid collection. Craniocervical junction is normal. Central flow voids are unremarkable.. Procedure Note Chaitanya Gaytan MD - 05/08/2019Formatt ing of this note might be different from the original. EXAMINATION: MRI BRAIN WWO CONTRAST (GEN MONTEZ) CLINICAL HISTORY: patient with know brai n stem cavernomas - f/u evaluation > 2 years after iniail identification, pleas e do SWI sequencing to look for bleed, has loop recoder in place TECHNIQUE: MRI of the brain was performed before an d after the intravenous administration of 14cc Dotarem. COMPARISON: 09/10/2016 FINDINGS: No restricted diffusion. There is eviden ce of susceptibility artifact projecting in the right anterior superior timothy and inferior midbrain on image 38 of series 3 and image 30 of series 5. There is an additional area of susceptibility artifact projecting in the posterior gorge s at the level of the superior cerebellar peduncle just to the right of midline on image 23 of series 5. There is a D medusa and age ranging vein assoc iated with the more posterior right paramedian pontine lesion best seen on i mages 68 through 76 of series 11. These findings are similar to exam of . There are no new areas of hemoglobin deg radation products on the susceptibility sequence within the brain parenchyma. Stable pattern of supratentorial white m atter changes periventricular region, centrum semiovale and subcortical region s. No new brain parenchymal signal changes. Similar appearance of enhancement associ ated with developmental venous anomaly with D7 in the posterior timothy. No new ar ea of abnormal enhancement identified. No mass, mass effect, midline shift or e xtra-axial fluid collection. Craniocervical junction is normal. Central flow voids are unremarkable.. 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 Thank you for letting us participate in the care of this patient. For questions regarding this report, please contact e number below. Electronically signed by: Chaitanya Landaverde MD, [facility] ([phone]), at 05/08/2019 2:04 PM Deanna Morales MD IMG MRI ORDERABLES documented in this encounter Visit Diagnoses Diagnosis Cavernoma - Primary Congenital vascular hamartomas NDPH (new daily persistent headache) New daily persistent headache Intractable chronic migraine without aur a and with status migrainosus Chronic migraine without aura, with intr actable migraine, so stated, with status migrainosus Cavernous angioma Congenital vascular hamartomas Cavernoma Congenital vascular hamartomas documented in this encounter Care Teams Radio Reporter Relationship Specialty Start Date End Date Uriah Davis MD PCP - General General Internal Medicine 04/11/[address] [place] [address] documented as of this encounter
--- OUTSIDE RECORDS SUMMARY | 2022-02-07 01:36 | XMS_ITS | Encounter Summary ---
:1955 Author Organization [facility] [place] [address] Care Team Providers Name Role Phone Jewell Renee Candi PHILLIPS Primary Care Provider Reason for Visit Reason Onset Date Comments Other 09/13/2017 Encounter Details Date Type Department Care Team Description 09/13/2017 Telephone [place]rology [place] [facility] [place] Morales MD Other [facility] [place] [address] NEUROLOGY DEPT [phone] [place], [place] [address] (Wo rk) Social History Tobacco Use Types Packs/Day Years Used Date Former Smoker Cigarettes Quit: 1976 Smokeless Tobacco: Never Used Alcohol Use Standard Drinks/Week Comments Yes 0 (1 standard drink = 0.6 oz pure alcoho l) weekend wine Alcohol Habits Answer Date Recorded How often do you have a drink containing alcohol? Not asked How many drinks containing alcohol do you have on a Not aske d typical day when you are drinking? How often do you have six or more drinks on one occasion? No t asked Comment: weekend wine 10/11/2016 Sex Assigned at Date Recorded Not on file documented as of this encounter Miscellaneous Notes Telephone Encounter - Nicole Black RN - 09/13/2017 9:15 AM EST Information forwarded to Nurse Soft Work Cigar Machine Operator to update Conifer. Telephone Encounter - NorahBritany reed - 09/13/2017 8:52 AM EST Caller: Patient If not Pt / Relation to pt: Best time to reach caller: anytime Before 2:30pm - Informed caller that nurse will call back by the end of the day Best number to reach caller: [phone] Reason for call: Patient called to update Nicole on Insurance information. [employer] [place] ID: [id number] Under his Angela Garcia name. He did call [employer] and make sure that it was changed. He stated that they said they would approve his botox. Patient is aware that we still have to do the PA. He was transferred to [facility] to confirm or change insurance information in his chart. Please Call to discuss documented in this encounter Plan of Treatment Upcoming Encounters Date Type Specialty Care Team Description 02/14/2022 Office Visit Dermatology Ace Hardwick MD [facility] [address]-DERMAT OGY [place], [place] [address] (Wo rk) 03/08/2022 Appointment Radiology Oscar De Oliveira MD [facility] NEUROSURGERY [place], [place] [address] (Wo rk) 03/08/2022 Office Visit Neurosurgery Oscar De Oliveira MD [facility] NEUROSURGERY [place], [place] [address] (Wo rk) 06/23/2022 Office Visit Neurology Annetta Hernandez APRN [facility] DRIVE Neurology [place], [place] [address] (Wo rk) documented as of this encounter Visit Diagnoses Not on filedocumented in this encounter Care Teams Cloth Bleaching Range Tender Relationship Specialty Start Date End Date Renee Corcoran APRN PCP - General Family Medicine 02/24/16 04/10/18 documented as of this encounter
--- OUTSIDE RECORDS SUMMARY | 2022-02-07 01:36 | XMS_ITS | Encounter Summary ---
:1955 Author Organization [facility] Address [address] [place] [address] Care Team Providers Name Role Phone Danish Cao DO Primary Care Provider Encounter Details Date Type Department Care Team Description 11/28/2007 Results Only [facility] - Danish Cao, DO Maple conversion [address] [place] [address] [place], [place] [id number] [phone] Social History Tobacco Use Types Packs/Day Years Used Date Never Assessed Sex Assigned at Date Recorded Not on file documented as of this encounter Plan of Treatment Upcoming Encounters Date Type Specialty Care Team Description 09/13/2022 Office Visit Cardiology Shelton Smith MD [address] [place] [address] [address] [place] [phone] (Wo rk) documented as of this encounter Procedures Procedure Name Priority Date/Time Associated Diagnosis Comme nts SURGICAL PATHOLOGY Routine 11/28/2007 0:00 EDT Re sults for this procedure are i n the results section. documented in this encounter Results SURGICAL PATHOLOGY (11/28/2007 0:00 EDT) Pathology Report: SURGICAL PATHOLOGY REPORT JAYME TAVARES Reports generated via electronic interface contain eagle ginal data; LAB however they are lacking the format of the original re port. Caution should be taken when reading/interpreting unfo rmatted reports. Name: ? BRAULIO GARCIA ? Accession #: ? [id number] ? : ? 1955 (Age: 52) ??M ? Collect Date: ? 11/28/2007 ? Location: ? [facility] ? Receive Date: ? 008 ? Provider: DANISH CAO DO Copy to: ? Final Pathologic Diagnosis: A. ?Skin of leg, left lower, punch biopsy : 1. ?Basal cell carcinoma, superficial mul ticentric type. ? - Basal cell carcinom a extends to peripheral edge of punch biopsy specimen. ? B. ?? Skin of scapula region, right, punch biop sy: ?1. ?? Basal cell carcinoma, superficial and nodular type. ?- Ba john cell carcinoma extends to peripheral edges of punch biopsy specimen. Microscopic Description: ? Emanating from the ep idermis and present within the dermis are irregularly shaped islands of atypical b jenifer cells. The basal cells have scant cytoplasm and round dark nuclei. ??Mitotic figures and apoptotic bod ies are evident. ??The nuclei at the periphery of the islands have a palisade d arrangement. ??The islands are associated with a fibromyxoid stroma and there is cleft formation between some of the islands and stroma. ??(Dr. Lunsford)/m ms Document reviewed and electronically signed by: JUAN C LUNSFORD MD Report ??Date: 11/30/2007 17:01 By the signature above, the attending physician certif ies that he/she has personally conducted a gross and/or microscopic examin ation of the described specimens and rendered or confirmed the above diagnosi s. Specimen(s) Received: A. ?Atypical lesion L lower leg B. ? Atypical lesion R scapula Clinical History: ? Not listed Gross Description: ? Received in formalin labelled Garcia and L lower leg is a punch biopsy of skin which measures 0.3 cm in diamete r and 0.1 cm in depth. ??The cutaneous surface is streeter-white and unr emarkable. ??The specimen is submitted intact as (A). Received in formalin james d Garcia and R scapula is a punch biopsy of skin which measures 0.3 cm in harjit meter and 0.1 cm in depth. ??The cutaneous surface is streeter-white and unremarkable. ??The specimen is carroll bmitted intact as (B). ??(Dr. Carreno)/chris End of Report Specimen Performing Organization Address City/State/ZIP Code Phon e Number [facility] [address] [place] [address] [facility] [address] [place] [address] documented in this encounter Visit Diagnoses Not on filedocumented in this encounter Care Teams Hand Rug Cleaner Relationship Specialty Start Date End Date Danish Cao, PCP - General 11/26/08 06/26/[address] [place] [address] FRANKIE HUGO [address] documented as of this encounter
--- OUTSIDE RECORDS SUMMARY | 2022-02-07 01:36 | XMS_ITS | Encounter Summary ---
:1955 Author Organization [facility] [place] [address] Care Team Providers Name Role Phone Jewell Renee Christopher APRN Primary Care Provider Encounter Details Date Type Department Care Team Description 07/07/2017 Telephone Neurology at [facility] Deanna Morales MD [facility] [place] [address] NEUROLOGY DEPT [phone] [place], [place] [address] (Wo rk) Social History Tobacco [...] Telephone Encounter - Nicole Black RN - 07/10/2017 9:12 AM EST Patient did not call to arrange elective headache admission. Telephone Encounter - Nicole Black, RN - 07/07/2017 10:13 AM EST ----- Message from Deanna Morales MD sent at 07/06/2017 1:57 PM EST ----- Inpatient for thorazine - sleep documented in this encounter Plan of Treatment Upcoming Encounters Date Type Specialty Care Team Description 02/14/2022 Office Visit Dermatology Ace Hardwick MD [facility] DR JENNIFER CASTELLANO-DERMAT OGY [place], [place] [address] (Wo rk) 03/08/2022 Appointment Radiology Oscar De Oliveira MD [facility] NEUROSURGERY [place], [place] [address] (Wo rk) 03/08/2022 Office Visit Neurosurgery Oscar De Oliveira MD [facility] NEUROSURGERY [place], [place] [address] (Wo rk) 06/23/2022 Office Visit Neurology Annetta Hernandez APRN [facility] [address] Neurology [place], [place] [address] (Wo rk) documented as of this encounter Visit Diagnoses Not on filedocumented in this encounter Care Teams Crystal Inspector Relationship Specialty Start Date End Date Renee Corcoran, CVICU RN PCP - General Family Medicine 02/24/16 04/10/18 documented as of this encounter
--- OUTSIDE RECORDS SUMMARY | 2022-02-07 01:36 | XMS_ITS | Encounter Summary ---
:1955 Author Organization [facility] [place] [address] Care Team Providers Name Role Phone Uriah Davis MD Primary Care Provider Encounter Details Date Type Department Care Team Description 05/08/2019 Hospital Encounter [place] [facility] Oscar De Oliveira Cerebral cavernoma [address] [place] [address] Dr Romy MD [facility] [id number] [place] [phone] [place] [address] Social History Tobacco Use Types Packs/Day Years [...] Dispensed Refills Start Date End Date lisinopril Take by mouth 2 0 07/10/2017 (PRINIVIL;ZESTRIL) 10 mg times daily. 2 TabletIndications: 10mg tablets in AM 1 am 20mg pm tablet in PM Indications: 10mg am 20mg pm ascorbic acid, Vitamin C, Take 500 mg by mouth 0 (Vitamin C) 500 mg Tablet daily. multivitamin (THERAGRAN) Take 1 tablet by 0 Tablet mouth daily. DILTiazem (CARDIZEM) 30 Take 60 mg by mouth 0 mg Tablet 2 times daily. naproxen sodium (ANAPROX Take one 550 mg 60 tablet 11 201702/12/2021 DS) 550 mg Tablet tablet by mouth for headache as needed. May repeat once after 4 hours if needed. NTE 2 tabs in 24 hours. Do not use daily. aspirin 81 mg EC tablet Take 81 mg by mouth 0 02/11/2020 daily. documented as of this encounter Plan of Treatment Upcoming Encounters Date Type Specialty Care Team Description 02/14/2022 Office Visit Dermatology Ace Hardwick MD [facility] DR JENNIFER CASTELLANO-DERMAT OLOGY [place], [place] [address] (Wo rk) 03/08/2022 Appointment Radiology Oscar De Oliveira MD [facility] NEUROSURGERY [place], [place] [address] (Wo rk) 03/08/2022 Office Visit Neurosurgery Oscar De Oliveira MD [facility] NEUROSURGERY [place], [place] [address] (Wo rk) 06/23/2022 Office Visit Neurology Annetta Hernandez APRN [facility] [address] Neurology [place], [place] [address] (Wo rk) documented as of this encounter Procedures Procedure Name Priority Date/Time Associated Diagnosis Comme nts XR CHEST PA AND Routine 05/08/2019 9:15 AM Cerebral cavernoma Results for this LATERAL EDT procedure are i n the results section. documented in this encounter Results XR Chest PA & Lateral (Generic) (05/08/2019 9:15 AM EDT) Anatomical Region Laterality Modality Chest N/A Digital Radiography Specimen (Source) Anatomical Location Collection Method / Collectio n Time Received Time / Laterality Volume Impressions 05/08/2019 11:05 AM EDT Anterior chest wall loop recorder in place. No additional hardware. I have personally reviewed the image(s) and the residents interpretation and agree with the findings, Braulio sheppard 05/08/2019 11:05 AM Thank you for letting us participate in the care of this patient. For questions regarding this report, please contact e number below. ? Electronically signed by: Braulio Pickard [facility] ([phone]), at 05/08/2019 11:05 AM Narrative 05/08/2019 11:05 AM EDT EXAMINATION: XR CHEST PA AND LATERAL (GENERIC) CLINICAL HISTORY: internal loop recorder ; needs checked prior to MRI TECHNIQUE: Frontal and lateral views of the chest COMPARISON: None FINDINGS: Anterior chest wall loop recorder in jayce ce. No additional hardware. Lungs are clear. No pneumothorax or pleural effusi ons. Scarring at the posterior costophrenic angles. Cardiomediastinal s ilhouette, rubia, pulmonary vascular markings are within normal limits. No ac holy cross osseous abnormality. Procedure Note Braulio Pickard MD - 05/08/2019Formatt ing of this note might be different from the original. EXAMINATION: XR CHEST PA AND LATERAL (GE NERIC) CLINICAL HISTORY: internal loop recorder ; needs checked prior to MRI TECHNIQUE: Frontal and lateral views of the chest COMPARISON: None FINDINGS: Anterior chest wall loop recorder in jayce ce. No additional hardware. Lungs are clear. No pneumothorax or pleural effusi ons. Scarring at the posterior costophrenic angles. Cardiomediastinal s ilhouette, rubia, pulmonary vascular markings are within normal limits. No ac holy cross osseous abnormality. IMPRESSION Anterior chest wall loop recorder in jayce ce. No additional hardware. I have personally reviewed the image(s) and the residents interpretation and agree with the findings, Braulio sheppard 05/08/2019 11:05 AM Thank you for letting us participate in the care of this patient. For questions regarding this report, please contact e number below. 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
--- OUTSIDE RECORDS SUMMARY | 2022-02-07 01:36 | XMS_ITS | Encounter Summary ---
:1955 Author Organization [facility] [place] [address] Care Team Providers Name Role Phone Uriah Davis MD Primary Care Provider Reason for Visit Reason Comments Migraine Encounter Details Date Type Department Care Team Description 04/23/2018 Office Visit [place]rology [place] [facility] Deanna Morales MD [facility] ([facility] per sistent headache) Drive [place] NE[place]OLOGY DEPT [address] [place] [address] [phone] Social History Tobacco Use Types Packs/Day Years [...] Sign Reading Time Taken Comments Blood Pressure 123/74 04/23/2018 10:35 AM EDT Pulse 64 04/23/2018 10:35 AM EDT Temperature - - Respiratory Rate - - Oxygen Saturation - - Inhaled Oxygen Concentration - - Weight 69.6 kg (153 lb 6.4 oz) 04/23/2018 10:35 AM EDT Height 177.8 cm (5' 10) 04/23/2018 10:35 AM EDT report ed Body Mass Index 22.01 04/23/2018 10:35 AM EDT documented in this encounter Progress Notes Deanna Morales MD - 04/23/2018 11:00 AM EDT Neurology Headache Clinic Follow-up Patient Name: Braulio Garcia Patient ID: Braulio Garcia is a 62 y.o. right handed male with Atrial fibrillation status post ablation xc 4, cerebral cavernoma, dizziness, hypertension, palpitations presenting with his Angela for evaluationfollowed in the headache clinic for new daily persistent headache with a migraine phenotype or headache attributed to his cavernous angioma bleeding. Initial evaluation 10/26/2016: Patient was seen at [facility] by Dr. Le for MCCLELLAND, weakness and convulsions. He was placed on gabapentin and is using magnesium . He was then started on amitriptyline. He is an active person, runs marathons and is very active. 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 He is very clear about the fact [...] better, but not resolved. He went to [facility] for evaluationand management. He can not recall [...] he was having. 156/100 BP. At the [facility] ED EKG, CXR, Cervical spine X [...] up to now; also an evaluation in [place] is impending. With that in mind, I [...] but demyelination is a possibility. Neurosurgery 10/11/2016 [facility] MRI scan, and this revealed 2 [...] 0.27 - 4.20 mcIU/mL 2.83 LP 12/09/2016 ([place]) OP 17 cm H20 WBC 1, RBC 0, Protein 35, Glu 59 Current Headache Medications: Medical MJ Lisinopril 5mg daily Diltiazem 30mg daily Aleve PRN No h/o renal stones or asthma Other providers: [facility] Cardiology Dr. Velasco Interval History: Monday morning he did his big adventure 5 hour run and then came down to a friend's house and bilked back to the house The headache was fine the whole time With the medical MJ he is 0/10 MCCLELLAND pain and intensity The headache will start to generate in the afternoon He knows that this is helping with coping mechanism He is going through the medical MJ very slowly - vape pen with one inhalation he is able to get a good night sleep Here is a little of the pain that comes back during the day He can go grocery shopping then he is able to tolerate a mild headache He is very happy that he is not having any SE or inhabition of his activity level Medications: Current Outpatient Prescriptions Medication Sig Dispense Refill ??? MARIJUANA ORAL Take by mouth. ??? naproxen sodium (ANAPROX DS) 550 mg Tablet Take one 550 mg tablet by mouth for headache as needed. May repeat once after 4 hours if needed. NTE 2 tabs in 24 hours. Do not use daily. 60 tablet 11 ??? lisinopril (PRINIVIL;ZESTRIL) 10 mg Tablet Take 10 mg by mouth 2 times daily. 0 ??? hydrOXYzine (VISTARIL) 25 mg Capsule [...] this visit. Physical Exam: Most Recent Vitals: 04/23/18 1035 BP: 123/74 Pulse: 64 Constitutional: Patient of apparent stated age, no acute distress HEENT: no occipital tenderness to palpation Neuro: MS: Alert, [...] Assessment and Plan: Braulio Garcia is a 62 y.o. right handed male with Atrial fibrillation status post ablation xc 4, cerebral cavernoma, dizziness, hypertension, palpitations presenting with his Angela for evaluationfollowed in the headache clinic for new daily persistent headache with a migraine phenotype or headache attributed to his cavernous angioma bleeding. Patient is doing very well with the medical MJ. 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 He is doing better with the Vaping!! He is not interestied in conversion to Aimovig or another monoclonal ab. Neuromodulation is not an option at this time - but he is not currently a candidate due to the loop recorder that he has in place. # New Daily persistent Headache - migraine without aura phenotype Headache attributed to cavernous angioma - Keep a Headache diary - For Headache Prevention: Medical MJ - For mild to moderate MCCLELLAND Naproxen sodium 550mg twice a day as needed Vistaril 25 - 50mg twice a day as needed Future considerations: Doxycycline [place] clonal antibodies Follow-up with Dr. Morales in 6 months Deanna Morales MD [facility] Neurology Medications Tried ([x] checked have been [...] Procedures: [] Auriculotemporal blocks [] Lumbar puncture [] Occipital nerve blocks [] Sphenopalatine ganglion blocks [] Supraorbital blocks [] Trigger point injections Neuromodulation: [] Cefaly [] nVNS/Gammacore [] Spring TMS Non-pharmacologic Tx [] Acupuncture [] Acupressure [] Biofeedback [] Marketing Account Executive [] Cognitive Behavioral Therapy [] Massage therapy [] Physical therapy [] Craniosacral therapy documented in this encounter Miscellaneous Notes Addendum Note - Deandre Moulton - 04/23/2018 11:49 AM EDT Addended by: DEANDRE MOULTON on: 04/23/2018 11:49 AM Modules accepted: Orders documented in this encounter Plan of Treatment Upcoming Encounters Date Type Specialty Care Team Description 02/14/2022 Office Visit Dermatology Ace Hardwick MD [facility] [address]DERMAT OLOGY [place], [place] [address] (Wo rk) 03/08/2022 Appointment Radiology Oscar De Oliveira MD [facility] NEUROSURGERY [place], [place] [address] (Wo rk) 03/08/2022 Office Visit Neurosurgery Oscar De Oliveira MD [facility] NEUROSURGERY [place], [place] [address] (Wo rk) 06/23/2022 Office Visit Neurology Annetta Hernandez APRN [address] [facility] [address] Neurology [place], [place] [address] (Wo rk) documented as of this encounter Procedures Procedure Name Priority Date/Time Associated Diagnosis Comme nts HEMOGRAM Routine 04/23/2018 11:57 AM NDPH (new daily Resul ts for this EDT persistent headache) procedu re are in the results section. DIFFERENTIAL, Routine 04/23/2018 11:57 AM NDPH (new daily Resu lts for this AUTOMATED EDT persistent headache) procedu re are in the results section. CBC (WITH DIFF) Routine 04/23/2018 11:57 AM NDPH (new daily EDT persistent headache) BASIC METABOLIC Routine 04/23/2018 11:57 AM NDPH (new daily Re sults for this PANEL (NON-FASTING) EDT persistent headache) procedure are in the results section. documented in this encounter Results Differential, Automated (04/23/2018 11:57 AM EDT) P athologist Signature Neutrophils % 55.5 % [facility] Neutr Abs (ANC) 3.13 1.70 - [facility] 6.10 [facility] x10(3)/[facility] LABORATORY Lymphocytes % 28.4 % [facility] Lymphocytes Abs 1.6 0.9 - 3.2 [facility] x10(3)/[facility] LABORATORY Monocytes % 11.5 % [facility] Monocyte Abs 0.6 0.3 - 0.9 [facility] x10(3)/[facility] LABORATORY Eosinophils % 3.9 % [facility] Eosinophils Abs 0.2 0.0 - 0.4 [facility] x10(3)/[facility] LABORATORY Basophils % 0.5 % [facility] Basophils Abs 0.0 0.0 - 0.1 [facility] x10(3)/[facility] LABORATORY Immature Gran % 0.20 % [facility] Comment: Immature granulocytes(IG's)percentage an d absolute count will include metamyelocytes, myelocytes, and promyelo cytes. Blood smears from CBCs yielding IG's will be scanned manually for concor dance. If this scan disagrees with the automated IG or if promyelocytes are not ed, a manual differential will be performed. Barbra Gran Abs 0.01 0.00 - 0.04 x10(3)/[facility] MAR Y [facility] LABORATORY Specimen Anatomical Collection Method Collection Time Receive d Time (Source) Location / / Volume Laterality Blood specimen 04/23/2018 11:57 8 (specimen) AM EDT 12:04 PM EDT Resulting Agency Comment Spec In Lab Deanna Morales MD HEMATOLOGY ORDERABLES Performing Organization Address City/State/ZIP Code Phon e Number [place] [id number] LAB[address] Hemogram (04/23/2018 11:57 AM EDT) P athologist Signature WBC 5.6 4.0 - 9.5 [facility] x10(3)/[facility] LABORATORY RBC 4.96 4.58 - [facility] 5.54 [facility] x10(6)/[facility] LABORATORY Hemoglobin 14.7 13.7 - [facility] 16.5 gm/dL [facility] Hematocrit 44.1 40.5 - [facility] 48.5 % [facility] MCV 88.9 82.9 - [facility] 93.1 fL [facility] MCH 29.6 27.5 - [facility] 32.1 pg [facility] MCHC 33.3 32.0 - [facility] 35.7 gm/dL [facility] Platelets 303 145 - 357 [facility] x10(3)/[facility] LABORATORY RDWSD 39.7 36.0 - [facility] 45.0 [facility] LABORATORY RDWCV 12.2 11.4 - [facility] 13.8 % [facility] LABORATORY MPV 8.5 7.6 - 12.9 [facility] LABORATORY nRBC % Auto 0.0 % [facility] nRBC Abs Auto 0.000 0.000 - [facility] 0.000 [facility] x10(3)/[facility] LABORATORY Specimen Anatomical Collection Method Collection Time Receive d Time (Source) Location / / Volume Laterality Blood specimen 04/23/2018 11:57 8 (specimen) AM EDT 12:04 PM EDT Resulting Agency Comment Spec In Lab Deanna Morales MD HEMATOLOGY ORDERABLES Performing Organization Address City/State/[place] [address] (ABNORMAL) Basic Metabolic Panel (non-fasting) (04/23/2018 11:57 AM EDT) P athologist Signature Glucose Lvl 90 65 - 199 [facility] mg/dL [facility] Comment: Diabetes: >=200 mg/dL plus symp toms BUN 23 (H) 10 - 20 mg/dL [facility] Creatinine 0.98 0.80 - 1.50 mg/dL [facility] Sodium 138 135 - 145 mmol/L [facility] Potassium 5.1 (H) 3.5 - 5.0 mmol/L [facility] Comment: Please note: ??Patients with WBC >100,00 0 may have falsely elevated Potassium levels. ??For accurate Potassium quantif ication in these patients send serum separator tube (gold top) for subsequent determinations. ??Contact the Clinical Chemistry Laboratory if there are any qu estions. Chloride 101 98 - 107 mmol/L [facility] CO2 25 22 - 31 mmol/L [facility] Anion Gap 12 5 - 15 mmol/L [facility] Calcium 9.8 8.5 - 10.5 mg/dL [facility] Estimated GFR 81 >=60 mL/min/1.73 m?? [facility] Comment: The eGFR was calculated using the CKD-EP I equation. As with all creatinine based estimates of kidney function, eGFR values calculated with the CKD-EPI equation are not accurate in patients wi th acute kidney failure, extremes of body mass or the acutely ill. [email or web address] eGFR 94 >=60 mL/min/1.73 m?? [facility] Comment: The eGFR was calculated using the CKD-EP I equation. As with all creatinine based estimates of kidney function, eGFR values calculated with the CKD-EPI equation are not accurate in patients wi th acute kidney failure, extremes of body mass or the acutely ill. [email or web address] Specimen Anatomical Collection Method Collection Time Receive d Time (Source) Location / / Volume Laterality Blood specimen 04/23/2018 11:57 8 (specimen) AM EDT 12:04 PM EDT Resulting Agency Comment Spec In Lab Deanna Morales MD CHEMISTRY ORDERABLES Performing Organization Address City/State/[place] [address] documented in this encounter Visit Diagnoses Diagnosis NDPH (new daily persistent headache) New daily persistent headache documented in this encounter Care Teams Material Checker Relationship Specialty Start Date End Date Uriah Davis MD PCP - General General Internal Medicine 04/11/18 [address] [place] [address] documented as of this encounter
--- OUTSIDE RECORDS SUMMARY | 2022-02-07 01:36 | XMS_ITS | Encounter Summary ---
:1955 Author Organization [facility] [place] [address] Care Team Providers Name Role Phone Jewell Renee Candi PHILLIPS Primary Care Provider Reason for Visit Reason Comments Headache High Dollar Medication (Routine) - Specialty Diagnoses / Procedures Referred By Contact Refer red To Contact Neurology Diagnoses Intractable chronic migraine without aura and with status migrainosus Deanna Morales MD [facility] 3c Procedures Auth Request for Medication TC ONABOTULINUMTOXINA, 1 UNIT, INJECTION [facility] [place] [address] [place] [address] Referral ID Status Reason Start Date Expiration Date Visits V isits Requested Authorized [id number] Consult, 11/21/2016 12/05/2017 8 8 Test & Treat Encounter Details Date Type Department Care Team Description 09/29/2017 Office Visit Neurology at [facility] Danish Nova MD NDPH (new daily [facility] per sistent headache) Drive [address] [place], [place] NEUROLOGY DEPT. [address] [place] [address] [phone] Social History Tobacco Use Types Packs/Day Years [...] Sign Reading Time Taken Comments Blood Pressure 121/81 09/29/2017 8:20 AM EST Pulse 74 09/29/2017 8:20 AM EST Temperature - - Respiratory Rate - - Oxygen Saturation - - Inhaled Oxygen Concentration - - Weight 70.3 kg (155 lb) 09/29/2017 8:20 AM EST reported Height 177.8 cm (5' 10) 09/29/2017 8:20 AM EST reporte d Body Mass Index 22.24 09/29/2017 8:20 AM EST documented in this encounter Progress Notes Danish Nova MD - 09/29/2017 8:30 AM EST He came with his today and brought his very detailed headache calendars as well as his Midas disability assessment test score. He does not feel that the Botox injections have helped him, his scoreis 120 today which is somewhat better but it is still in the severely disabled range. He still has headache on 90 out of 90 days in the same variable pattern of severity throughout the day. This is a gentleman with known brainstem cavernomas and new daily persistent headache. I did examine him brieflytoday. His occipital nerves are not tender today although they have been in the past so I decided not to perform occipital nerve blocks. He is not jaundiced sedated ataxic nor dysarthric. I told him that new daily persistent headache sometimes spontaneously remits. We agreed that repeating the Botox injections would probably not be a good idea at this point. A trial of doxycycline would be reasonableand I actually sent a prescription in to his pharmacy for 100 mg twice a day for a month; he is to call at that point and if in fact he is improving or has had any benefit it is not unreasonable to cont inue it for a period of time. If there is no benefit I think it should be stopped. I did warn him that it can cause photosensitivity and he will need to be careful to goes out in the sunshine and to wear a hat and use sunblock. He will have a follow-up in about [address] Moralse. One wonders if inthe future monoclonal CG RP therapy might be a choice for him; there are many other things that could be tried but of course there is no known effective treatment for new daily persistent headache. Themajority of today's 30 minute office visit was dominated by 20 minutes of direct [id number] counseling and therapeutic planning Danish Nova MD documented in this encounter Plan of Treatment Upcoming Encounters Date Type Specialty Care Team Description 02/14/2022 Office Visit Dermatology Ace Hardwick MD [facility] DR JENNIFER CASTELLANO-DERMAT OGY [place], [place] [address] (Wo rk) 03/08/2022 Appointment Radiology Oscar De Oliveira MD [facility] NEUROSURGERY [place], [place] [address] (Wo rk) 03/08/2022 Office Visit Neurosurgery Oscar De Oliveira MD [facility] NEUROSURGERY [place], [place] [address] (Wo rk) 06/23/2022 Office Visit Neurology Annetta Hernandez APRN [facility] [address] Neurology [place], [place] [address] (Wo rk) documented as of this encounter Visit Diagnoses Diagnosis NDPH (new daily persistent headache) New daily persistent headache documented in this encounter Care Teams Assistant Professor Of Marine Biology Relationship Specialty Start Date End Date Renee Corcoran APRN PCP - General Family Medicine 02/24/16 04/10/18 documented as of this encounter
--- OUTSIDE RECORDS SUMMARY | 2022-02-07 01:36 | XMS_ITS | Encounter Summary ---
:1955 [place] [address] Care Team Providers Name Role Phone Uriah Davis MD Primary Care Provider Reason for Visit Reason Comments Skin Check full skin exam, hx BCC Encounter Details Date Type Department Care Team Description 05/08/2019 Office Visit Dermatology at [facility] India Kim MD Neoplasm of uncertain behavior of skin; [facility] Actinic keratoses; [address] Multiple benign nevi; [place] [address] [facility] History of melanoma [phone] [address]-DERMATOLOGY [place] [address] Social History Tobacco Use Types Packs/Day Years [...] documented as of this encounter Progress Notes Nori Kim MD - 05/08/2019 8:30 AM EDT Images from the original note were not included. DERMATOLOGY AT [facility] Dermatology At [facility] [address] [facility] [address] FOLLOW-UP Date of service: 05/08/2019 Braulio Garcia : 1955 Provider: Nori Kim MD Preferred name: Yonis Preferred contact method with results: [phone] (H) or [phone] (M) Message with results on machine okay?: Yes ?? SKIN HISTORY: BCC on right scapula 02/2009: right lateral clavicle, BCC 02/2009: right inferior clavicle, BCC 01/2011: left pretibial, BCC Actinic keratosis Diffuse actinic damage treated with Carac, responded well Chief Complaint: Full skin exam History of Present Illness Braulio Garcia is a 63 y.o. male with a history of BCC. Established patient, last seen 04/11/18. Here today for a full skin exam. Pt denies any other area of concern at this time. Medical History Non contributory Allergies Food extracts and Cephalexin Medications Current Outpatient Medications Medication Sig Dispense Refill [...] No current facility-administered medications for this visit. Family History: - Melanoma: none ?? 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 Type of exam: The patient was asked to disrobe to the level of their comfort. Full skin examination of the scalp, hair, head, face, neck, back, chest, abdomen, right and left upper extremities, right and left lower extremities and buttocks was normal with the exception of the findings listed below. Genitalia not examined. Significant skin findings: ?? Yellowish pink papule ~ 4mm mid aspect of the left lower eyelid [Figure A] ?? Right forehead x 4: 0.2-0.3cm scaly irregular pink papule(s) ?? Second toe of the left foot: 0.3-0.5 cm, medium-brown, evenly pigmented macule/papule Images Photo taken and charted with patient consent [Figure A] ASSESSMENT/PLAN: Neoplasm of Uncertain Behavior Ddx: BCC vs Sebaceous Hyperplasia vs Other I discussed this condition with the patient and explored therapeutic options. I recommended we do a punch biopsy, joint decision made to proceed with skin biopsy for further diagnostic information. Punch biopsy: 2 mm Location: Mid aspect of the left lower eyelid [Figure A] Time: 8:43 AM The patient's consent was obtained. Risk of infection, scarring, nerve damage, pigment change, numbness, incomplete removal, recurrence, bleeding, pain and uncommonly so, allergic reaction to anesthesia were all reviewed. Sterile preparation was used. Anesthesia obtained with 1% lidocaine with epinephrine. A punch biopsy was obtained. The specimen was sent to pathology for histologic evaluation. Vaseline and bandaid were applied. Wound care was reviewed. Actinic Keratoses Procedure Note: Procedure: Destruction of lesions with cryotherapy. Number: 4 Location: as above Discussed procedure and expectations including risks (including risk of hypopigmentation) and benefits. Verbal consent obtained. Frozen with LN2, 15-30 second thaw time, TWICE. There were no complications; the patient tolerated the procedure well. Post-procedure expectations and wound care were reviewed. Benign Appearing Nevus - Benign. No treatment necessary. - Reassured about benign nature and natural history. History of Non-Melanoma Skin Cancer - No signs of recurrence. RTC Pending pathology. Otherwise, 1 year for a full skin exam or sooner as needed. H/x NMSC. Reminder placed in scheduling system. Note initiated and routed to physician for review and change by: Uma Arshad CMA I, Aleksander Reich, have performed the documentation for this encounter in the presence of and acting as a scribe for NORI KIM MD. I performed the services which were documented by the scribe, and I agree with the accuracy of the documentation in this encounter. NORI KIM MD. Nori Kim MD Section of Dermatology [facility] documented in this encounter Plan of Treatment Upcoming Encounters Date Type Specialty Care Team Description 02/14/2022 Office Visit Dermatology Ace Hardwick MD [facility] DR JENNIFER DENG-DERMAT [place], [place] [address] (Wo rk) 03/08/2022 Appointment Radiology Oscar De Oliveira MD [facility] NEUROSURGERY [place], [place] [address] (Wo rk) 03/08/2022 Office Visit Neurosurgery Oscar De Oliveira MD [facility] NEUROSURGERY [place], [place] [address] (Wo rk) 06/23/2022 Office Visit Neurology Annetta Hernandez APRN [facility] [address] Neurology [place], [place] [address] (Wo rk) Scheduled Orders Name Type Priority Associated Diagnoses Order S chedule Pathology Order Pathology/Cytol Routine Neoplasm of uncertain Ordered: 05/08/2019 Update ogy behavior of skin documented as of this encounter Procedures Procedure Name Priority Date/Time Associated Diagnosis Comme nts SPECIMEN TO Routine 05/08/2019 9:14 AM Neoplasm of Results f or this PATHOLOGY EDT uncertain behavior procedure are in of skin the results section. SURGICAL PATHOLOGY Routine 05/08/2019 8:43 AM Res ults for this REPORT EDT procedure are i n the results section. documented in this encounter Results Specimen to Pathology (05/08/2019 9:14 AM EDT) Specimen Anatomical Collection Method Collection Time Receive d Time (Source) Location / / Volume Laterality AP Specimen 05/08/2019 9:14 AM 9 EDT 12:[address] [facility] - 05/08/2019 12:55 PM EDT Specimen requisition ordered. ??Separate Pathology report to follow Resulting Agency Comment Spec In Lab Nori Kim MD PATHOLOGY/CYTOLOGY ORDERABLE S Performing Organization Address City/State/[place] [address] Surgical Pathology Report (05/08/2019 8:43 AM EDT) Component Value Ref Test Analysis Performed At [facility] gist Range Method Time Signature Surgical [id number] ? Location: [facility] The signing pathologist has (i) examined the relevant preparation(s) for the [facility] specimen(s) and (ii) rendered or confirmed the diagnosis(es) . HOSPITAL LABORATORY . ?Surgic al Pathology DIAGNOSIS Skin, left lower eyelid, shave biopsy: - Hemangioma Electronically signed by: ??Marek Beyer MD Verified: ??05/13/2019 ?Dermatopathologist, Bone & Soft Tissue Pathologist Performed at: ??-[facility] Dept. of Pathology, [place], [place] CLINICAL INFORMATION Specimen Submitted: A - Skin, left lower eyelid, shave biopsy Clinical History and Diagnosis: Yellowish pink papule approx imately 4 mm mid aspect of the left lower eyelid; BCC versus sebaceous hyperplasia versus other SPECIMEN PROCESSING A - Labeled/Fixative: Patient demographics, formalin. Quantity/Size: ??Single, 0.2 x 0.2 x 0.2 cm. Tissue Description: Rubbery, pink-streeter tissue. Sections/Processing: Submitted en toto ??in 1 cassette labeled A1. ??ejr Specimen (Source) Anatomical Collection Method Collection Time Re ceived Time Location / / Volume Laterality 05/08/2019 8:43 AM EDT Nori Kim MD PATHOLOGY/CYTOLOGY ORDERABLE S Performing Organization Address City/State/ZIP [place] [address] documented in this encounter Visit Diagnoses Diagnosis Neoplasm of uncertain behavior of skin Actinic keratoses Actinic keratosis Multiple benign nevi Benign neoplasm of skin, site unspecifie d History of melanoma Personal history of malignant melanoma o f skin documented in this encounter Care Teams Human Resources File Clerk Relationship Specialty Start Date End Date Uriah Davis MD PCP - General General Internal Medicine 04/11/18 [address] [place] [address] documented as of this encounter
--- OUTSIDE RECORDS SUMMARY | 2022-02-07 01:36 | XMS_ITS | Encounter Summary ---
:1955 [place] [address] Care Team Providers Name Role Phone Uriah Davis MD Primary Care Provider Reason for Visit Reason Comments Skin Check Encounter Details Date Type Department Care Team Description 04/11/2018 [facility] History of basal cell carcin cathleen (BCC) [address] [facility] [place] [address] [place] [address] RD-DERMATOLOGY [place] [address] Social History Tobacco Use Types Packs/Day Years [...] documented as of this encounter Progress Notes Surinder Kim MD - 04/11/2018 8:00 AM EDT DERMATOLOGY AT [facility] Dermatology At [address] [facility] [address] FOLLOW-UP Date of service: 04/11/2018 Braulio Garcia : 1955 Provider: Surinder Kim MD Preferred name: Yonis Preferred contact method with results: [phone] (H) or [phone] (M) Message with results on machine okay?: Yes SKIN HISTORY: BCC on right scapula 02/2009: right lateral clavicle, BCC 02/2009: right inferior clavicle, BCC 01/2011: left pretibial, BCC Actinic keratosis Diffuse actinic damage treated with Carac, responded well Chief Complaint: Annual full skin check History of Present Illness Braulio Garcia is a 62 y.o. male. Established patient, last seen 04/11/17. The patient is here todayfor a full skin exam. Patient denies any other areas of concern today. He mentions he bumped his head recently in his garage. - Patient states that he is on medical marijuana for migraines prescribed by neurology at [facility]. Allergies Food extracts and Cephalexin Medications Current Outpatient Prescriptions Medication Sig Dispense Refill ??? naproxen sodium (ANAPROX DS) 550 mg [...] none ?? 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 Type of exam: Complete skin exam including scalp, face, ears, neck, arms, hands, back, anterior trunk, buttocks, legs, feet. Genitalia not examined. Significant skin findings: ?? [place], hyperkeratotic slightly irregular papules on the right forehead x3. ?? No evidence of recurrence in scars on the right scapula, right lateral clavicle, right inferior clavicle, or left pretibial. ASSESSMENT/PLAN: Actinic Keratoses Procedure Note: Procedure: Destruction of lesions with cryotherapy. Number: 3 Location: as above Discussed procedure and expectations including risks (including risk of hypopigmentation) and benefits. Verbal consent obtained. Frozen with LN2, 15-30 second thaw time, TWICE. There were no complications; the patient tolerated the procedure well. Post-procedure expectations and wound care were reviewed. History of Basal Cell Carcinomas No evidence of recurrence. Sun Care Counseling ?? Discussed importance of sun protection, sun avoidance strategies, protective clothing, and sunscreen SPF 30+. ?? Recommend applying sunscreen SPF 30+ daily on the face, neck, and ears at least. ?? When going to be outdoors, we recommend at least SPF 50 sunscreen or UPF clothing. Remember to reapply sunscreen every 2 hours or after sweating or getting wet when outdoors. RTC March 2019 for 1 year full skin exam, hx BCCs - or sooner as needed. Reminder placed in scheduling system. Note initiated and routed to physician for review and change by: AMY Rodriguez I, Lucina Arias, have performed the documentation for this encounter in the presence of and acting as a scribe for SURINDER KIM MD. I, Dr. Surinder Kim, performed the visit service though my nurse assisted me in scribing the note. I reviewed and edited this note above, a scribed service performed by my nurse. On closure of this noteI agree with the accuracy of the documentation. Surinder Kim MD Section of Dermatology [facility] documented in this encounter Plan of Treatment Upcoming Encounters Date Type Specialty Care Team Description 02/14/2022 Office Visit Dermatology Ace Hardwick MD [facility] DR JENNIFER CASTELLANO-DERMAT [place], [place] [address] (Wo rk) 03/08/2022 Appointment Radiology Oscar De Oliveira MD [facility] NEUROSURGERY [place], [place] [address] (Wo rk) 03/08/2022 Office Visit Neurosurgery Oscar De Oliveira MD [facility] NEUROSURGERY [place], [place] [address] (Wo rk) 06/23/2022 Office Visit Neurology Annetta Hernandez APRN [facility] ER DRIVE Neurology [place], [place] [address] (Wo rk) documented as of this encounter Visit Diagnoses Diagnosis AK (actinic keratosis) Actinic keratosis History of basal cell carcinoma (BCC) documented in this encounter Care Teams Pump Erector Helper Relationship Specialty Start Date End Date Uriah Davis MD PCP - General General Internal Medicine 04/11/18 [address] [place] [address] documented as of this encounter
--- OUTSIDE RECORDS SUMMARY | 2022-02-07 01:36 | XMS_ITS | Encounter Summary ---
:1955 Author Organization [facility] [place] [address] Care Team Providers Name Role Phone Jewell Renee Candi PHILLIPS Primary Care Provider Encounter Details Date Type Department Care Team Description 08/04/2017 Telephone Neurology at [facility] [place] [facility] Deanna Morales MD [place] [address] NEUROLOGY DEPT [phone] [place], [place] [address] (Wo rk) Social History Tobacco [...] Telephone Encounter - Nicole Black RN - 08/04/2017 4:55 PM EST Called and discussed information with patient. He will call back in a few weeks to check in. Telephone Encounter - Nicole Black RN - 08/04/2017 2:46 PM EST Called patient and left a message asking for a return phone call. Telephone Encounter - Deanna Morales MD - 08/04/2017 12:38 PM EST Thank you for the update I am happy to consider the Medical MJ Krishna he have any experience with it?? Looks like my next considerations with Doxycycline We could start that Doxycycline 100mg BID for 3 months I prefer to go through more medication options, but we can try a trial of Medical MJ to see if it helps Deanna Morales MD [facility] Neurology Telephone Encounter - Nicole Black RN - 08/04/2017 11:57 AM EST Patient called and left a message on the nurse triage line stating it is been about a month since his last Botox injections and he has not noticed any change in his headache. He states he has had a really bad month and is struggling with the continuing pain. He states he is willing to continue on the path and give it more time but mentions that Dr. Morales had brought up medical marijuana at his last visit. He states it is now legal in [place] and wonders what her real opinion is on it. documented in this encounter Plan of Treatment Upcoming Encounters Date Type Specialty Care Team Description 02/14/2022 Office Visit Dermatology Ace Hardwick MD [facility] DR JENNIFER CASTELLANO-DERMAT [place], [place] [address] (Wo rk) 03/08/2022 Appointment Radiology Oscar De Oliveira MD [facility] [address] [place], [place] [address] (Wo rk) 03/08/2022 Office Visit Neurosurgery Oscar De Oliveira MD [facility] NEUROSURGERY [place], [place] [address] (Wo rk) 06/23/2022 Office Visit Neurology Annetta Hernandez APRN [facility] DR[address] Neurology [place], [place] [address] (Wo rk) documented as of this encounter Visit Diagnoses Not on filedocumented in this encounter Care Teams Special Librarian Relationship Specialty Start Date End Date Renee Corcoran APRN PCP - General Family Medicine 02/24/16 04/10/18 documented as of this encounter
--- OUTSIDE RECORDS SUMMARY | 2022-02-07 01:36 | XMS_ITS | Clinical Summary ---
:1955 Author Organization [facility] [place] [address] Care Team Providers Name Role Phone Tho Genao APRN Primary Care Provider Allergies Active Allergy Reactions Severity Noted Date Comments Amiodarone 10/13/2009 Other reaction( s): Other (See Comments) Ineffective for A-Fib and hallucinations Atenolol 10/13/2009 Other reaction( s): Other (See Comments) Hallucinations and restlessness Multivit With Min-Folic High 01/29/2021 Othe r reaction(s): Acid Anaphylaxsis Cephalexin Nausea Only 10/13/2009 Dofetilide 07/01/2013 Other reaction( s): Unknown, Unknown Flecainide 10/13/2009 Other reaction( s): Other (See Comments) Hallucinations Food Extracts Hives High Fresh Fruit ellis boyer reported Medications Medication Sig Dispensed Refills Start Date End Date Status DILTiazem (CARDIZEM) Take 60 mg by 0 Active 30 mg Tablet mouth 2 times daily. multivitamin Take 1 tablet by 0 Active (THERAGRAN) Tablet mouth daily. ascorbic acid, Vitamin Take 500 mg by 0 Active C, (Vitamin C) 500 mg mouth daily. Tablet lisinopril Take by mouth 2 0 07/10/2017 A ctive (PRINIVIL;ZESTRIL) 10 times daily. 2 mg TabletIndications: tablets in AM 1 10mg am 20mg pm tablet in PM Indications: 10mg am 20mg pm fish oil-omega-3 fatty Take 1 g by mouth 0 Active acids 1,000 mg Capsule daily. rivaroxaban (Xarelto) Take 20 mg by 0 01/29/2020 Active 20 mg Tablet mouth daily. MARIJUANA INHL Inhale into the 0 Active lungs. fluorouraciL (EFUDEX) Apply thin layer 40 g 0 10/25/2021 Active 5 % Cream twice daily to the scalp, right ear rough spot for 2-4 weeks; stop 5 days after erosions develop; no more 4 weeks. Active Problems Patient Care Coordination Note Formatting of this note might be differe nt from the original. Primary Headache Provider: Dr CORTEZ Certification completed for [place] Therapeut ic Cannabis Program by Dr. 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 current use of anticoagulant therapy 021 Left knee pain 02/12/2021 Ectopic atrial tachycardia 11/26/2019 Basal cell carcinoma of skin 09/20/2019 Overview: Deactivated Dx replaced via utility Deactivated Dx replaced via utility Thoracic aortic aneurysm without rupture 09/20/2019 NDPH (new daily persistent headache) 03/07/2019 Cerebral cavernoma 10/11/2016 Essential (primary) hypertension 09/23/2016 Dizziness 09/23/2016 Status post catheter ablation of atrial fibrillation 0 09/23/2016 S/P ablation of atrial fibrillation 09/23/2016 Bursitis, olecranon 12/04/2015 PAF (paroxysmal atrial fibrillation) 10/09/2012 Resolved Problems Problem Noted Date Resolved Date Encounter for loop recorder check 09/20/20192020 Cavernous angioma 03/07/2019 03/07/2019 Encounters Date Type Specialty Care Team Description 01/12/2022 Orders Only Neurosurgery Katina Zuñiga, Cavern ous malformation RN 01/12/2022 Telephone Neurology Kanwal Garcia APRN 01/12/2022 Telephone Neurosurgery Anushka Delvalle 01/10/2022 Office Visit Neurology Kanwal Garcia, NDPH (ne w daily persistent headache); [facility] [employer] Cavernoma from Last 3 Months Immunizations Name Administration Dates Next Due Hepatitis B Vaccine, unspecified 07/04/2006, 01/30/2006, 12/2005 formulation Influenza Vaccine, High Dose Quadrivalent 04/29/2020 PF Family History Medical History Relation Comments Migraines Daughter 1 Myocardial Infarction Father Myocardial Infarction Maternal Uncle Heart Failure Paternal Grandfather Myocardial Infarction Paternal Grandmother Relation Status Comments Brother 1 Alive Brother 2 Alive Daughter 1 Alive Daughter 2 Alive Father [place] Maternal Grandfather Maternal Grandmother Maternal Uncle Mother Alive Paternal Grandfather Paternal Grandmother Social History Tobacco Use Types [...] Pulse 72 01/10/2022 7:36 AM EDT Temperature 36 ??C (96.8 ??F) 08/17/2020 10:57 AM EST Respiratory Rate - - Oxygen Saturation - - Inhaled Oxygen Concentration - - Weight 68.9 kg (152 lb) 01/10/2022 7:36 AM EDT Height 177.8 cm (5' 10) 07/06/2021 2:16 PM EST reporte d Body Mass Index 21.81 07/06/2021 2:16 PM EST Plan of Treatment Upcoming Encounters Date Type Specialty Care Team Description 02/14/2022 Office Visit Dermatology Ace Hardwick MD [facility] DR JENNIFER CASTELLANO-DERMAT OLOGY [place], [place] [address] (Wo rk) 03/08/2022 Appointment Radiology Oscar De Oliveira MD [facility] NEUROSURGERY [place], [place] [address] (Wo rk) 03/08/2022 Office Visit Neurosurgery Oscar De Oliveira MD [facility] NEUROSURGERY [place], [place] [address] (Wo rk) 06/23/2022 Office Visit Neurology Annetta Hernandez, [facility] Neurology [place] [id number] (Wo rk) Health Maintenance Due Date Last Done Comments Covid-19 Vaccine (#1) 1958 Hepatitis C Screening 11/14/1971 Lipid Screening 11/14/1971 Tdap adult 1972 Tetanus vaccine 1972 Colonoscopy 1998 Zoster vaccine (1 of 2) 11/14/2003 Advance Directive 2008 AAA Screen 2018 Pneumoccocal Vaccine: 65+ (1 - PCV) 2018 Influenza (Flu) vaccine (1 of 1 - Influenza standard 03/24/2022 04/29/2020 series) Medical Devices Explanted Type Area Occupational Health Nurse Device Shelf Model / Identifier Expiration Serial / Date Lot Mdt Reveal Linq [id number]/13/2016 Implantable Left: Medtronic - [id number] / Implanted: Qty: 1 on 09/13/2016 by Shelton Smith MD Diagno stic Chest [id number] / Explanted: Qty: 1 on 02/24/2020 by Shelton Smith MD Monitor [facility] Insurance Payer Benefit Plan / Subscriber ID Effective Phone Address T ype Group Dates [employer] BCBS [id number] 2020-Prese [address] [facility] [place] [address] [place] [address] MEDICARE MEDICARE PART [id number] 2020-Pres [phone] A & B ent [address] [facility] [id number] Advance Directives Documents on File Type Date Recorded Patient Supervisor Cigar Making Hand Explanati on Personal Supervisor Cigar Making Hand 08/08/2019 5:06 PM angela e llis Care Teams Knitting Machine Operator Helper Relationship Specialty Start Date End Date Tho Genao, [facility]CAR[facility] B[facility] CUTTER PCP - General Family Medicine 02/08/[address] [place] [address]
--- OUTSIDE RECORDS SUMMARY | 2022-02-07 01:36 | XMS_ITS | Encounter Summary ---
:1955 [place] [address] Care Team Providers Name Role Phone Uriah Davis MD Primary Care Provider Encounter Details Date Type Department Care Team Description 02/11/2020 Office Visit Neurology at [facility], Deanna Childs MD NDPH (new daily persistent headache); [facility] Ca[place]oma [address] [place] [address] [place] [address] [phone] Social History Tobacco Use Types Packs/Day Years [...] Sign [place] Time Taken Comments Blood Pressure 143/99 02/11/2020 11:55 AM EDT Pulse 70 02/11/2020 11:55 AM EDT Temperature - - Respiratory Rate - - Oxygen Saturation - - Inhaled Oxygen Concentration - - Weight 65.8 kg (145 lb) 02/11/2020 11:55 AM EDT Reporte d Height 177.8 cm (5' 10) 02/11/2020 11:55 AM EDT Report ed Body Mass Index 20.81 02/11/2020 11:55 AM EDT documented in this encounter Progress Notes Deanna Morales MD - 02/11/2020 12:30 PM EDT Neurology Headache Clinic Follow-up Patient Name: Braulio Garcia Patient ID: Braulio Garcia is a 64 y.o. right handed male with Atrial fibrillation status post ablation xc 4 (now on Xeralto), cerebral cavernoma, dizziness, hypertension, palpitations being followed in the headache clinic with new daily persistent headache with a migraine phenotype or headache attributed to his cavernous angioma bleeding. Initial evaluation 10/26/2016: Patient was seen at [facility] by Dr. Le for MCCLELLAND, weakness and convulsions. He was placed on gabapentin and is using magnesium . He was then started on amitriptyline. He is an active person, runs marathons and is very active. 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 He is very clear about the fact [...] better, but not resolved. He went to [facility] for evaluationand management. He can not [...] he was having. 156/100 BP. At the [facility] ED EKG, CXR, Cervical spine X [...] up to now; also an evaluation in [place] is impending. With that in mind, I [...] but demyelination is a possibility. Neurosurgery 10/11/2016 [facility] MRI scan, and this revealed 2 [...] h/o renal stones or asthma Other providers: [facility] Cardiology Dr. Velasco Interval History: He reports that the headache continues to be there - there is no change int he He has adjusted to the fact that it will always be there He is doing very well with the medical MJ He has stopped doing the daily diary May have an occasional bad day Baseline headache can go up to 6-7/10 If he stays on top of it He is continuing to monitor for any SE from the medical MJ He is continuing to push the envelope on his physical activity with his son and law December 29 when on a [place] bike ride Had HR 120-130 and was not going down In that time he almost passed out a few times Tried to call Went to a neighbor's house Went to loader operator/ground leader Found to be atrial fibrillation Medications: Current Outpatient Medications Medication Sig Dispense Refill ??? rivaroxaban (Xarelto) 20 mg Tablet Take 20 mg by mouth daily. ??? fish oil-omega-3 fatty acids 1,000 mg Capsule Take 1 g by mouth daily. ??? naproxen sodium (ANAPROX [...] this visit. Physical Exam: Most Recent Vitals: 02/11/20 1155 BP: (!) 143/99 Pulse: 70 Constitutional: Patient of apparent stated [...] Assessment and Plan: Braulio Garcia is a 64 y.o. right handed male with Atrial fibrillation status post ablation xc 4 (now on Xeralto), cerebral cavernoma, dizziness, hypertension, palpitations being followed in the headache clinic for new daily persistent headache with a migraine phenotype or headache attributed to his c avernous angioma bleeding. Patient is continuing to do very well with his medical marijuana. He is aware that he can have a change in therapy whenever he desires. The next step would be the use of monoclonal antibodies against CGRP or its receptor. He will continue to follow with Dr. De Oliveira in the neurosurgery clinic. He will have repeat imaging in 3 years - 04/2022. He will also continue to work with Cardiology and EP for the management of his Atrial fibrillation -added the Xeralto to the regimen in December 2019. Appt Duration 25 minutes More the 50% [...] twice a day as needed Future considerations: [place] clonal antibodies Doxycycline Repeat ONB # atrial fibrillation - f/u with Cardiology and PCP Follow-up with Dr. Morales in 6 month - OK with Telehealth Will renew Medical MJ Deanna Morales MD [facility] Neurology Medications Tried ([x] checked have been [...] Botox # 2 160, 90/90 MCCLELLAND days, 810 MCCLELLAND intensity 07/06/2017 Botox # 3 (185 units) 180, 90/90 MCCLELLAND days, 710 MCCLELLAND intensity Opioids/Narcotics/Controlled Substances: [] Butorphanol (Ketamine/Stadol) [x] Marijuana Procedures: [] Auriculotemporal blocks [] Lumbar puncture [x] Occipital nerve blocks 02/09/2017 - no change in the headache [] Sphenopalatine ganglion blocks [] Supraorbital blocks [] Trigger point injections Neuromodulation: [] Cefaly [] nVNS/Gammacore [] Spring TMS Non-pharmacologic Tx [] Acupuncture [] Acupressure [] Biofeedback [] Superintendent Greens [] Cognitive Behavioral Therapy [] Massage therapy [] Physical therapy [] Craniosacral therapy documented in this encounter Plan of Treatment Upcoming Encounters Date Type Specialty Care Team Description 02/14/2022 Office Visit Dermatology Ace Hardwick MD [facility] ER DR JENNIFER CASTELLANO-DERMAT [place], [place] [address] (Wo rk) 03/08/2022 Appointment Radiology Oscar De Oliveira MD [facility] NEUROSURGERY [place], [place] [address] (Wo rk) 03/08/2022 Office Visit Neurosurgery Oscar De Oliveira MD [facility] NEUROSURGERY [place], [place] [address] (Wo rk) 06/23/2022 Office Visit Neurology Annetta Hernandez APRN [facility] [address] Neurology [place], [place] [address] (Wo rk) documented as of this encounter Visit Diagnoses Diagnosis NDPH (new daily persistent headache) New daily persistent headache Cavernoma Congenital vascular hamartomas documented in this encounter Care Teams Casting Machine Service Operator Relationship Specialty Start Date End Date Uriah Davis MD PCP - General General Internal Medicine 04/11/[address] [place] [address] documented as of this encounter
--- OUTSIDE RECORDS SUMMARY | 2022-02-07 01:36 | XMS_ITS | Encounter Summary ---
:1955 [place] [address] Care Team Providers Name Role Phone Uriah Davis MD Primary Care Provider Encounter Details Date Type Department Care Team Description 04/29/2020 Office Visit Dermatology at [facility] India Kim MD Actinic keratosis; [facility] Multiple benign nevi; [address] [place]; [place] [address] [place] [address] History of basal cell carcin cathleen (BCC) [phone] RD-DERMATOLOGY [place] [address] Social History Tobacco Use Types Packs/Day Years [...] encounter Progress Notes Nori Kim MD - 04/29/2020 9:45 AM EDT Images from the original note were not included. DERMATOLOGY AT [facility] Dermatology At [facility] [address] [facility] [address] FOLLOW-UP Date of service: 04/29/2020 Braulio Garcia : 1955 Provider: Nori Kim MD Preferred name: Yonis Preferred contact method with results: [phone] (H)??or [phone] (M) Message with results on machine okay?: Yes I give Dr. Kim's team permission to discuss my results with: SKIN HISTORY: BCC on right scapula 02/2009:??right lateral clavicle, BCC 02/2009:??right inferior clavicle, BCC 01/2011: left pretibial, BCC Actinic keratosis Diffuse actinic damage treated with Carac, responded well Chief Complaint: FSE History of Present Illness Braulio Garcia is a 64 y.o. year old male. Established patient, last seen by me on 05/08/2019. Heretoday for a full skin exam. He has some spots on the ears that occasionally will scab up and then fall off. He notes that they have been treated in the past. None are particularly itchy or painful. Notes that he takes Rivaroxaban to treat atrial fibrillation. On exam we discussed a nevus on the lower abdomen. He has not noticed any changes. He has not noted any other new, growing, changing, bleeding,painful or otherwise symptomatic moles or other lesions. He has not noted any other changes in any preexisting lesions. Medical History Non contributory Allergies Food extracts, Amiodarone, Atenolol, Cephalexin, Dofetilide, and Flecainide Medications Current Outpatient Medications Medication Sig Dispense [...] No current facility-administered medications for this visit. 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 - Running 4AM daily, hiking, gardening, mountain biking, - 1 cat - Recently spent some time in [place], [place] - Wears sunscreen and a hat occasionally Family History -??Melanoma: none Review of Systems General: feeling well Skin: [...] the exception of the findings listed below. Significant skin findings: ?? 0.2-0.3cm scaly irregular pink papules on the lower aspect of the anterior right ear x1, lower aspect of the anterior left ear x1, right forehead x4, left forehead x1, left hindu x1, right hindu x1 ?? 9mm oval patch on the lower abdomen. The inferior half is slightly slasher runner in color. ?? Well healed scars on the right scapula, right lateral clavicle, right inferior clavicle, and leftpretibial ASSESSMENT/PLAN: Actinic keratosis - lower aspect of the anterior right ear x1, lower aspect of the anterior left earx1, right forehead x4, left forehead x1, left hindu x1, right hindu x1 - Discussed premalignant potential of these lesions. - Shared decision to proceed with LN2 treatment at this time: Procedure Note: Procedure: Destruction of lesions with cryotherapy. Number: 9 Location: as above Discussed procedure and expectations including risks (including risk of hypopigmentation) and benefits. Verbal consent obtained. Frozen with LN2, 15-30 second thaw time, TWICE. There were no complications; the patient tolerated the procedure well. Post-procedure expectations and wound care were reviewed. Benign Appearing Nevi - Including the lesion on the lower abdomen. Will continue to monitor. Advised to RTC if it changes,grows, or darkens. - Benign. No treatment necessary. - Reassured about benign nature and natural history. Freckling on the upper back - Benign. No treatment necessary. - Reassured about benign nature and natural history. Sun Care Counseling - Discussed importance of sun protection, sun avoidance strategies, protective clothing (hats), and sunscreen History of BCC - Right scapula, right lateral clavicle, right inferior clavicle, and left pretibial - NER - Will continue to monitor RTC 1 year for a FSE (Hx of BCC) Note initiated and routed to physician for review and change by: Andrew Jean CMA I, Reginaldo Lamas, have performed the documentation for this encounter in the presence of and acting as a scribe for NORI KIM MD. I performed the services which were documented by the scribe, and I agree with the accuracy of the documentation in this encounter. NORI KIM MD. Nori Kim MD Section of Dermatology [facility] documented in this encounter Plan of Treatment Upcoming Encounters Date Type Specialty Care Team Description 02/14/2022 Office Visit Dermatology Ace Hardwick MD [facility] DR JENNIFER DENG-DERMAT OLOGY [place], [place] [address] (Wo rk) 03/08/2022 Appointment Radiology Oscar De Oliveira MD [facility] NEUROSURGERY [place], [place] [address] (Wo rk) 03/08/2022 Office Visit Neurosurgery Oscar De Oliveira MD [facility] NEUROSURGERY [place], [place] [address] (Wo rk) 06/23/2022 Office Visit Neurology Annetta Hernandez APRN [facility] Neurology [place], [place] [address] (Wo rk) documented as of this encounter Visit Diagnoses Diagnosis Actinic keratosis Multiple benign nevi Benign neoplasm of skin, site unspecifie d Freckles Other dyschromia History of basal cell carcinoma (BCC) documented in this encounter Care Teams Sheep Clipper Relationship Specialty Start Date End Date Uriah Davis MD PCP - General General Internal Medicine 04/11/18 [address] [place] [address] documented as of this encounter
--- OUTSIDE RECORDS SUMMARY | 2022-02-07 01:36 | XMS_ITS | Encounter Summary ---
:1955 Author Organization [facility] Address [address] [place] [address] Care Team Providers Name Role Phone Uriah Davis MD Primary Care Provider Reason for Visit Reason Onset Date Comments Other 08/02/2018 therapeutic cannabis renewal Encounter Details Date Type Department Care Team Description 08/02/2018 Telephone Neurology at [facility] Deanna Morales MD Other ([facility] can nabis renewal) [place] [address] NEUROLOGY DEPT [phone] [place] [address] (Wo rk) Social History Tobacco Use Types [...] Telephone Encounter - Nicole Black RN - 08/02/2018 9:48 AM EST Completed therapeutic cannabis renewal for patient Scanned to chart Patient given original documented in this encounter Plan of Treatment Upcoming Encounters Date Type Specialty Care Team Description 02/14/2022 Office Visit Dermatology Ace Hardwick MD [facility] DR [address]-DERMAT OLOGY [place], [place] [address] (Wo rk) 03/08/2022 Appointment Radiology Oscar De Oliveira MD [facility] NEUROSURGERY [place], [place] [address] (Wo rk) 03/08/2022 Office Visit Neurosurgery Oscar De Oliveira MD [facility] NEUROSURGERY [place], [place] [address] (Wo rk) 06/23/2022 Office Visit Neurology Annetta Hernandez APRN [facility] [address] Neurology [place], [place] [address] (Wo rk) documented as of this encounter Visit Diagnoses Not on filedocumented in this encounter Care Teams Master Barber Relationship Specialty Start Date End Date Uriah Davis MD PCP - General General Internal Medicine 04/11/18 [address] [place] [address] documented as of this encounter
--- OUTSIDE RECORDS SUMMARY | 2022-02-07 01:36 | XMS_ITS | Encounter Summary ---
:1955 Author Organization [facility] [address] Care Team Providers Name Role Phone BirgitTho Kyeshawn PHILLIPS Primary Care Provider Encounter Details Date Type Department Care Team Description 06/24/2021 Procedure visit Dermatology at [facility] Ace Hardwick Basal cell carcinoma Kyle Hatch MD (BCC) of right [address] [facility] [place] [address] [facility] [phone] [place] [address] Social History Tobacco Use Types Packs/Day Years [...] documented as of this encounter Progress Notes Ace Hardwick MD - 06/24/2021 8:00 AM EST Images from the original note were not included. DEPARTMENT OF DERMATOLOGY Procedural Dermatology Clinic Provider: Ace Hardwick MD FAAD at Dermatology at [facility] Patient's preferred name Bill PAST MEDICAL HISTORY Melanoma Dysplastic nevi SCC BCC right anterolateral shoulder, BCC biopsied Apr 2021 Left pretibial, BCC, s/p January 2011 Right lateral clavicle, BCC, Feb 2009 Right inferior clavicle, BCC, Feb 2009 Right scapula, BCC [place] [x] cryotherapy [] efudex [] PDT [x] Other - Carac Relevant Medications [] Immunosuppression [] Oncogenic medication [] Nicotinamide Other relevant history FAMILY HISTORY Melanoma NMSC Other relevant history SOCIAL HISTORY 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 - Running??4AM daily, hiking, gardening, mountain biking,?? - 1 cat - Wears sunscreen and a hat occasionally History of Present Illness: Braulio Garcia is 65 y.o. and here for the following: ??? Here for treatment of a BCC on the right shoulder Pathology Results [id number] Right anterolateral shoulder, skin shave biopsy: - ??Basal cell carcinoma, nodular type, present at the peripheral and deep specimen??edges Medications: Reviewed in eD-H Allergies: Reviewed in eD-H Skin Examination Mood is appropriate. Well developed, well-nourished in no apparent distress, alert and oriented to time, person, place and situation. Focused examination of the right anterolateral shoulder significant for the following. Examination Findings/Assessment and Plan Basal Cell Carcinoma, Right Anterolateral Shoulder 10 x 11 mm light pink slightly atrophic plaque on the right anterolateral shoulder Procedure Curettage & Electrodessication Discussed with patient treatment options, including the risks and benefits of excision and curettageand electrodessication, including but not limited to recurrence, cosmesis (scar, dyspigmentation, scar spread), pain, keloid/hypertrophic scar, bleeding, infection. Patient verbally understands and elects curettage and electrodessication. [x] Consent: verbal informed consent signed. Surgeon: Ace Hardwick MD, FAAD Fleecer: Tracy Greenberg LPN Time Out: Name, , and site(s) confirmed with patient [x] Yes Blood Thinner? [] Denies [x] Yes - Xarelto Pacemaker or defribrillator? [x] Denies [] Yes Allergy to lidocaine or epinephrine? [x] Denies [] Yes Procedure Currettage and Electrodessication with 3mm margins and left to heal by secondary intention Location Right Anterolateral Shoulder Pre-Operative Diagnosis BCC Anesthesia: 1% lidocaine+1:100,000 epinephrine, 2.5ml Sterile Prep Alcohol Lesion 10x11 mm Defect 17x16 mm Final Defect 17x16 mm Lesion was injected with 1% lidocaine with 1:100,000 epinephrine (volume above), and sterilized in the usual sterile fashion. The lesion was curetted to clinically normal skin (3mm radius) and electrodessicated. This was repeated two more cycles. <1ml blood loss. No complications. Specimen: Not applicable. Post-op care: Vaseline [x] Bandaid [] Pressure Dressing Post-operative pain: 0/10 ??? Remove bandaid in 24 hours. ??? Wound care: Vaseline or antibiotic ointment, bandaid every 12-24h and allow soapy water to wash over the wound daily ??? Pain: Ibuprofen 400mg po q6h and/or Tylenol 325-650mg po q6h prn pain Follow-up: Skin cancer screening in 4-5 months. Return to clinic asooner s needed for new suspiciouslesions or if changes/symptoms in existing lesions develop. [] Recall placed [x] Forwarded to resistance brazer [] Patient scheduled before exiting Scribe attestation: Tracy Greenberg LPN has performed the documentation for this encounter in the presence of and acting as a scribe for MD FLORENCE Ye. I performed the above scribed service and agree with the accuracy of the documentation in this encounter. Reviewed and signed by: MD FLORENCE Ye Dermatology [facility] documented in this encounter Plan of Treatment Upcoming Encounters Date Type Specialty Care Team Description 02/14/2022 Office Visit Dermatology Ace Hardwick MD [facility] [address] [place], [place] [address] (Wo rk) 03/08/2022 Appointment Radiology Oscar De Oliveira MD [facility] [address] [place], [place] [address] (Wo rk) 03/08/2022 Office Visit Neurosurgery Oscar De Oliveira MD [facility] NEUROSURGERY [place], [place] [address] (Wo rk) 06/23/2022 Office Visit Neurology Annetta Hernandez APRN [facility] Neurology [place], [place] [address] (Wo rk) documented as of this encounter Visit Diagnoses Diagnosis Basal cell carcinoma (BCC) of right shou lder documented in this encounter Care Teams College Basketball Coach Relationship Specialty Start Date End Date Tho Genao, SIGNALS OFFICER PCP - General Family Medicine 02/08/[address] [place] [address] documented as of this encounter
--- OUTSIDE RECORDS SUMMARY | 2022-02-07 01:36 | XMS_ITS | Encounter Summary ---
:1955 [place] [address] Care Team Providers Name Role Phone Tho Genao APRN Primary Care Provider Reason for Visit Reason Comments Migraine Encounter Details Date Type Department Care Team Description 02/12/2021 [facility] Deanna Childs MD NDPH (new daily persistent headache); Road [facility] [place] [address] [place], [place] NEUROLOGY DEPT [address] [place] [address] [phone] Social History Tobacco Use Types Packs/Day Years [...] Sign Reading Time Taken Comments Blood Pressure 144/92 02/12/2021 9:39 AM EDT Pulse 67 02/12/2021 9:39 AM EDT Temperature - - Respiratory Rate - - Oxygen Saturation - - Inhaled Oxygen Concentration - - Weight 68.9 kg (152 lb) 02/12/2021 9:39 AM EDT reported Height 177.8 cm (5' 10) 02/12/2021 9:39 AM EDT reporte d Body Mass Index 21.81 02/12/2021 9:39 AM EDT documented in this encounter Progress Notes Deanna Morales MD - 02/12/2021 10:00 AM EDT Neurology Headache Clinic Follow-up [...] Initial evaluation 10/26/2016: Patient was seen at [facility] by Dr. Le for MCCLELLAND, weakness and convulsions. He was placed on gabapentin and is using magnesium . He was then started on amitriptyline. He is an active person, runs marathons and is very active. 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 He is very clear about the [...] better, but not resolved. He went to [facility] for evaluationand management. He can not [...] he was having. 156/[address] [facility] ED EKG, CXR, Cervical spine X [...] up to now; also an evaluation in [place] is impending. With that in mind, I [...] but demyelination is a possibility. Neurosurgery 10/11/2016 [facility] MRI scan, and this revealed 2 [...] h/o renal stones or asthma Other providers: [facility] Cardiology Dr. Velasco Interval History: He is presenting with his today He reports that there has been no change in headache He has had a few days that may have been a bit worse then others Headache continues to rise throughout the day to 7/10 MCCLELLAND intensity 30/30 MCCLELLAND days per month No change in the way he is taking his MJ He does not feel out of control - not feeling like he has psychological problems He is going in for evaluation of his knee He is continuing his Xeralto - he has occasional fibrillation Medications: Current Outpatient Medications Medication Sig [...] facility-administered medications for this visit. Physical Exam: No data found. BP 144/92, P 67 Constitutional: Patient of apparent stated age, no [...] regimen in December 2019 - no changes Appt Duration 20 minutes # New Daily persistent Headache - [...] twice a day as needed Future considerations: [place] clonal antibodies Doxycycline Repeat ONB # atrial fibrillation - f/u with Cardiology and PCP Follow-up with Dr. Morales in 6 month - OK with Telehealth Deanna Morales MD [facility] Neurology Medications Tried ([x] checked have been [...] [] Acupuncture [] Acupressure [] Biofeedback [] Hadoop Admin [] Cognitive Behavioral Therapy [] Massage therapy [] Physical therapy [] Craniosacral therapy documented in this encounter Plan of Treatment Upcoming Encounters Date Type Specialty Care Team Description 02/14/2022 Office Visit Dermatology Ace Hardwick MD [facility] [address] [place], [place] [address] (Wo rk) 03/08/2022 Appointment Radiology Oscar De Oliveira MD [facility] ER NEUROSURGERY [place], [place] [address] (Wo rk) 03/08/2022 Office Visit Neurosurgery Oscar De Oliveira MD [facility] NEUROSURGERY [place], [place] [address] (Wo rk) 06/23/2022 Office Visit Neurology Annetta Hernandez APRN [facility] Neurology [place], [place] [address] (Wo rk) documented as of this encounter Visit Diagnoses Diagnosis NDPH (new daily persistent headache) New daily persistent headache [place] Congenital vascular hamartomas documented in this encounter Care Teams Client Technologies Specialist Relationship Specialty Start Date End Date Tho Genao, ELECTRICIAN STATION ASSISTANT PCP - General Family Medicine 02/08/[address] [place] [address] documented as of this encounter
--- OUTSIDE RECORDS SUMMARY | 2022-02-07 01:36 | XMS_ITS | Encounter Summary ---
:1955 Author Organization [facility] [place] [address] Care Team Providers Name Role Phone RusscherylRenee APRN Primary Care Provider Reason for Visit Reason Comments Migraine Headache Botox Injection High Dollar Medication (Routine) - Specialty Diagnoses / Procedures Referred By Contact Refer red To Contact Neurology Diagnoses Intractable chronic migraine without aura and with status migrainosus Deanna Morales MD [facility] Neurology 3c Procedures Auth Request for Medication TC ONABOTULINUMTOXINA, 1 UNIT, INJECTION [facility] [place] [address] [place] [address] Referral ID Status Reason Start Date Expiration Date Visits V isits Requested Authorized [id number] Consult, 11/21/2016 12/05/2017 8 8 Test & Treat Encounter Details Date Type Department Care Team Description 07/06/2017 Office Visit Neurology at [facility] Deanna Morales MD NDPH (new daily persistent headache); [facility] Int ractable chronic migraine without aura and with status migrainosus Drive [address] [place] [address] [place] [address] [phone] Social History Tobacco Use Types Packs/Day Years [...] Sign Reading Time Taken Comments Blood Pressure 139/84 07/06/2017 11:18 AM EST Pulse 70 07/06/2017 11:18 AM EST Temperature - - Respiratory Rate - - Oxygen Saturation - - Inhaled Oxygen Concentration - - Weight 74.9 kg (165 lb 3.2 oz) 07/06/2017 11:18 AM EST Height 177.8 cm (5' 10) 07/06/2017 11:18 AM EST report ed Body Mass Index 23.7 07/06/2017 11:18 AM EST documented in this encounter Patient Instructions Patient InstructionsDeanna Morales MD - 07/06/2017 11:30 AM EST Office Number: (Yaima Brown - [place]) Clinic nurse number for most issues and prescription refills (Karishma) (Nicole) For Prescription Refills: Please call for [...] to cavernous angioma - For Headache Prevention: Continue Botox injections q 12 weeks - For mild to moderate MCCLELLAND Naproxen sodium 550mg twice a day as needed Vistaril 25 - 50mg twice a day as needed Consider Inpatient admission For admission: Call Admission after 930am morning of admission Future considerations: Doxycycline Follow-up with Dr. Morales/Avtar in 12 weeks documented in this encounter Progress Notes Deanna Morales MD - 07/06/2017 11:30 AM EST Neurology Headache Clinic Follow-up Patient Name: Braulio Garcia Patient ID: Braulio Garcia is a 61 y.o. right handed male with Atrial fibrillation status post ablation xc 4, cerebral cavernoma, dizziness, hypertension, palpitations presenting with his [place] for evaluationfollowed in the headache clinic for new daily persistent headache with a migraine phenotype or headache attributed to his cavernous angioma bleeding. Initial evaluation 10/26/2016: Patient was seen at [facility] by Dr. Le for MCCLELLAND, weakness and convulsions. He was placed on gabapentin and is using magnesium . He was then started on amitriptyline. He is an active person, runs marathons and is very active. 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 He is very clear about the fact [...] better, but not resolved. He went to [facility] for evaluationand management. He can not [...] he was having. 156/100 BP. At the [facility] ED EKG, CXR, Cervical spine X [...] up to now; also an evaluation in [place] is impending. With that in mind, I [...] but demyelination is a possibility. Neurosurgery 10/11/2016 [facility] MRI scan, and this revealed 2 [...] 1, RBC 0, Protein 35, Glu 59 Medications tried: Patient reports that he is very sensitive to medications Gabapentin (SE sedation and feeling spacy) Propranolol Metoprolol Verapamil Diltiazem Amitriptyline (SE vivid dreams - felt like an incredible adventure and then woke up after 10 minutesand was very wide awake - this was a pattern) (SE mood swings) Lisinopril Candesartan (did not feel well on the medication) Desvenlafaxine/Khedezla 50mg daily Depakote Trazodone (SE vivid dreams - felt like an incredible adventure and then woke up after 10 minutes andwas very wide awake - this was a pattern) Baclofen - did not feel well on the medication Vistaril SE sedation Prochlorpemazine Magnesium Tylenol Aleve/Naproxen sodium Advil/Ibuprofen ASA Current Medications: Botox q 12 weeks Date Procedure MIDAS 01/18/2017 Botox # 1 156, 90/90 MCCLELLAND days, 7/10 MCCLELLAND intensity 04/11/2017 Botox # 2 160, 90/90 MCCLELLAND days, 03/02 MCCLELLAND intensity Lisinopril 5mg daily Diltiazem 30mg daily Aleve PRN Treatments not tried: Botox Topamax Zonisamide Keppra Nortriptyline Venlafaxine Cyproheptadine/Periactin Flexeril Tizanidine/Zanaflex Robaxin Zofran Phenergan Reglan Prednisone Diamox/Acetazolamide Indomethacin PRN/Scheduled Riboflavin Coenzyme q 10 Sumatriptan PO/NS/SQ Treximet Relpax/Eletriptan Zomig/Zolmotriptan NS/PO Maxalt/Rizotriptan Axert/Almotriptan Amerge/Naratriptan Frova/Frovatriptan Migranal/DHE Nasal [place] DHE injections No h/o renal stones or asthma Other providers: [facility] Cardiology Dr. Velasco Interval History: No change in the headaches Headache is mild to moderate in the AM, but as he starts doing things there is an increase in the headache it is an over all demand on the system By the middle of the day he feels impaired to the point that he has trouble moving around - trippingover legs He is resting daily - takes daily nap When he gets back up he feels more in a daze He has had documentation from [place] disability - could not do the paperwork in the afternoon He will take the hydroxyzine from time to time - SE sedation Did not send a TNF alpha level for this patient on CSF We will have to communicate with the Rheumatologist - Medications: Current Outpatient Prescriptions Medication Sig Dispense Refill ??? ascorbic acid, vitamin C, (VITAMIN C) 500 mg Tablet Take 500 mg by mouth daily. ??? lisinopril (PRINIVIL;ZESTRIL) 5 mg Tablet Take 5 mg by mouth 2 times daily. 0 ??? multivitamin (THERAGRAN) Tablet Take 1 tablet by mouth daily. ??? naproxen sodium (ANAPROX DS) 550 mg Tablet Take 1 tablet by mouth 2 times daily as needed (Mild to Moderate Headache). Can be taken with or without Vistaril 60 tablet 12 ??? DILTiazem (CARDIZEM) 30 mg Tablet Take 60 mg by mouth 2 times daily. ??? aspirin 81 mg EC tablet Take 81 mg by mouth daily. ??? OnabotulinumtoxinA (BOTOX) 200 unit Recon Soln Inject 155 Units as directed Every 12 weeks. Indications: Migraine Prevention No current facility-administered medications for this visit. Physical Exam: Most Recent Vitals: 07/06/17 1118 BP: 139/84 Pulse: 70 Constitutional: Patient of apparent stated [...] Assessment and Plan: Braulio Garcia is a 61 y.o. right handed male with Atrial fibrillation status post ablation xc 4, cerebral cavernoma, dizziness, hypertension, palpitations presenting with his [place] for evaluationfollowed in the headache clinic for new daily persistent headache with a migraine phenotype or headache attributed to his cavernous angioma bleeding. I do not believe that this is due to the presence of his cavernomas. He has had a normal OP for LP. For management of the headache future consideration is for doxycycline. We also discussed neuromodulation - but he is not currently a candidate due to the loop recorder that he has in place. He is applying for disability through [place]. He clearly understands that this is a difficult headache syndrome. He wants to work systematically. I have also offered inpatient admission as soon at Monday07/10/2017. # New Daily persistent Headache - migraine without aura phenotype Headache attributed to cavernous angioma - Keep a Headache diary - For Headache Prevention: Continue Botox injections q 12 weeks - For mild to moderate [place]LLAND Naproxen sodium 550mg twice a day as needed Vistaril 25 - 50mg twice a day as needed Consider Inpatient admission For admission: - Admit to Neurology Thorazine protocol: - diphenhydramine 25mg PO followed in about one hour by Thorazine 10mg IV, administered TID. Increase thorazine as tolerated. - EKG on admission and daily - Bedrest given risk of orthostatic hypotension with Thorazine. Lovenox 40 daily while on thorazine. - Toradol 30mg TID PRN - Labs: CBC, CMP, Mg, PO4 - EKG x 1 Future considerations: Doxycycline Follow-up with Dr. Morales/Avtar in 12 weeks Deanna Morales MD [facility] Neurology This note was created using Playde[employer] speech recognition software. Please pardon any errors. documented in this encounter Procedure Notes Deanna Morales MD - 07/06/2017 11:30 AM ESTAssociated Order(s): CHEMODENERVATION, MEDICAL Neurology Procedure note Date: 07/06/2017 Patient: Braulio Garcia : 1955 Procedure: Botox injections (PREEMPT protocol) - q 12 weeks Indications: NDHP Chronic Migraine with and without aura Date Procedure MIDAS 01/18/2017 Botox # 1 156, 90/90 MCCLE[place]AND days, 7/10 MCCLELLAND intensity 04/11/2017 Botox # 2 160, 90/90 MCCLELLAND days, 8/10 MCCLELLAND intensity 07/06/2017 Botox # 3 (185 units) 180, 90/90 MCCLELL[place] days, 7/10 MCCLELLAND intensity Risk and benefits were explained to the patient. Written consent was obtained - 01/18/2017 Verbal consent obtained today Time out was preformed OnabotulinumtoxinA was reconstituted with 0.9% NaCl to create a dilution of 5 units per 0.1mL. Each injection site was sterilized with 70% isopropyl alcohol. Injections were administered with a 30 gauge, 1/2 needle. Injections administered as follows and performed bilaterally with injections split equally except for procerus: 20 units divided between 4 sites in the frontalis muscle, 10 units divided between 2 sites in the chief investment officer muscles, 5 units into 1 site in the procerus muscle, 40 units divided between 8 sites in the temporalis muscles, 30 units divided between 6 sites in the suboccipital region, 20 units divided between 4 sites in the cervical paraspinal musculature, and 30 units divided between 6 sites in the trapezii. Additional 30 units was administered over 6 sites in the b/l trapezius muscles per the follow the pain portion of the PREEMPT protocol 10 units over 2 sites in the left frontalis muscle 10 units over 2 sites in the right frontalis muscle 5 units over 1 site in the left temporalis muscle 5 units over 1 site in the right temporalis muscle Total units used= 185. Total injection sites=37. Patient was injected with 185 units and 15 units were wasted/disgarded The patient tolerated the procedure without any immediate complications. Deanna Morales MD [facility] Neurology Migraine Disability Assessment # of days in the past 3 months 1. Missed work / school because of MCCLELLAND 90 2. Productivity at work / school reduced by > half because of MCCLELLAND (do not count days from Q.1) 0 3. Did not do housework because of MCCLELLAND 0 4. Productivity in household work reduced by > half because of MCCLELLAND (do not count days from Q.3) 90 5. Missed family / social / leisure activities because of MCCLELLAND 0 Total 180 MIDAS grade (use total of Q1 to 5) I: 0-5, little to no disability II: 6-10, mild disability III: 11-20, moderate disability IV: 21+, severe disability A. # of days in the last 3 months with a MCCLELLAND (count each day if MCCLELLAND lasted > 1 day) 90 B. Average MCCLELLAND intensity (0-10) 7 documented in this encounter Plan of Treatment Upcoming Encounters Date Type Specialty Care Team Description 02/14/2022 Office Visit Dermatology Ace Hardwick MD [facility] DR JENNIFER CASTELLANO-DERMAT [place], [place] [address] (Wo rk) 03/08/2022 Appointment Radiology Oscar De Oliveira MD [facility] NEUROSURGERY [place], [place] [address] (Wo rk) 03/08/2022 Office Visit Neurosurgery Oscar De Oliveira MD [facility] NEUROSURGERY [place], [place] [address] (Wo rk) 06/23/2022 Office Visit Neurology Annetta Hernandez APRN [address] Neurology [place], [place] [address] (Wo rk) documented as of this encounter Procedures Procedure Name Priority Date/Time Associated Diagnosis Comme nts CHEMODENERVATION, Routine 07/06/2017 2:01 PM Resu lts for this MEDICAL EST procedure are i n the results section. documented in this encounter Results Chemodenervation, medical (07/06/2017 2:01 PM EST) Narrative Deanna Morales MD - 07/06/2017 2:01 PM EST Deanna Morales MD ? 07/06/2017 ??2:01 PM Neurology Procedure note Date: 07/06/2017 Patient: Braulio Garcia : ??1955 Procedure: Botox injections (PREEMPT pro tocol) - q 12 weeks Indications: NDHP ??Chronic Migraine with and without aur a Date ??Procedure ?? MIDAS 01/18/2017 ??Botox # 1 ?? 156, 90/90 MCC[place] d ays, 7/10 MCCLELL[place] intensity 04/11/2017 ??Botox # 2 ?? 160, 90/90 [place] d ays, 8/10 M[place] intensity ?? 07/06/2017 ??Botox # 3 (185 units) ??180 , 90/90 MCCLELL[place] days, 7/10 MCCLELL[place] intensity ?? Risk and benefits were explained to the patient. Written consent was obtained - 01/18/2017 Verbal consent obtained today Time out was preformed OnabotulinumtoxinA was reconstituted wit h 0.9% NaCl to create a dilution of 5 units per 0.1mL. Each injection site was sterilized with 70% isopropyl alcohol. Injections were administered with a 30 g auge, 1/2 needle. Injections administered as follows and p erformed bilaterally with injections split equally except for proc erus: 20 units divided between 4 sites in the frontalis muscle, 10 units divided between 2 sites in the chief investment officer muscles, 5 uni ts into 1 site in the procerus muscle, 40 units divided betwee n 8 sites in the temporalis muscles, 30 units divided bet ween 6 sites in the suboccipital region, 20 units divided be tween 4 sites in the cervical paraspinal musculature, and 30 units divided between 6 sites in the trapezii. Additional 30 units was administered ove r 6 sites in the b/l trapezius muscles per the follow the alex n portion of the PREEMPT protocol 10 units over 2 sites in the left front sarwat muscle 10 units over 2 sites in the right fron talis muscle 5 units over 1 site in the left tempora lis muscle 5 units over 1 site in the right tempor sarwat muscle Total units used= 185. Total injection sites=37. Patient was injected with 185 units and 15 units were wasted/disgarded The patient tolerated the procedure with out any immediate complications. Deanna Morales MD [facility] Neurology Migraine Disability Assessment # of days in the past 3 months 1. Missed work / school because of MCCLELLAND 90 2. Productivity at work / school reduced by > half because of MCCLELL[place] (do not count days from Q.1) 0 3. Did not do housework because of MCCLELLAND 0 4. Productivity in household work reduce d by > half because of MCCLELLAND (do not count days from Q.3) 90 5. Missed family / social / leisure acti vities because of MCCLELLAND 0 Total 180 MIDAS grade (use total of Q1 to 5) I: 0-5, little to no disability II: 6-10, mild disability III: 11-20, moderate disability IV: 21+, severe disability A. # of days in the last 3 months with a MCCLELLAND (count each day if MCCLELLAND lasted > 1 day) 90 B. Average MCCLELL[place] intensity (0-10) 7 Deanna Morales MD PROCEDURE/MINOR SURGICAL ORD ERABLES documented in this encounter Visit Diagnoses Diagnosis NDPH (new daily persistent headache) New daily persistent headache Intractable chronic migraine without aur a and with status migrainosus Chronic migraine without aura, with intr actable migraine, so stated, with status migrainosus documented in this encounter Administered Medications Inactive Administered Medications - up to 3 most recent administrations Medication Order MAR Action Action Date Dose Rate Site botulinum toxin type A (BOTOX) Given 07/06/2017 1:57 PM EST 185 Units injection 200 Units 200 Units, Intramuscular, ONCE, 1 dose, On Kiah 07/06/17 at 1330, Routine documented in this encounter Care Teams Spine Nurse Relationship Specialty Start Date End Date Renee Corcoran APRN PCP - General Family Medicine 02/24/16 04/10/18 documented as of this encounter
--- OUTSIDE RECORDS SUMMARY | 2022-02-07 01:36 | XMS_ITS | Encounter Summary ---
:1955 Author Organization [facility] Address [facility] [place] [address] Care Team Providers Name Role Phone Russcheryl Renee Candi PHILLIPS Primary Care Provider Reason for Visit Reason Comments Headache Encounter Details Date Type Department Care Team Description 11/22/2017 Office Visit Neurology at [facility] Deanna Morales MD NDPH ([facility] per sistent headache) Drive DR Ann [place] NEUROLOGY DEPT [address] [place] [address] [phone] Social History Tobacco Use Types Packs/Day Years [...] Sign Reading Time Taken Comments Blood Pressure 143/88 11/22/2017 8:10 AM EDT Pulse 71 11/22/2017 8:10 AM EDT Temperature - - Respiratory Rate - - Oxygen Saturation - - Inhaled Oxygen Concentration - - Weight 70.3 kg (155 lb) 11/22/2017 8:10 AM EDT reported Height 177.8 cm (5' 10) 11/22/2017 8:10 AM EDT reporte d Body Mass Index 22.24 11/22/2017 8:10 AM EDT documented in this encounter Patient Instructions Patient InstructionsDeanna Morales MD - 11/22/2017 8:30 AM EDT Office Number: (Yaima Brown - Director Client) Clinic nurse number for most issues and prescription refills (Karishma) (Nicole) For Prescription Refills: Please call for refills when you have one month left on your medication, we have 48 hours from the time you call to get the medication refill placed. Please call the clinic rather then using [employer] or e-mail, as the communication is better [...] admission Future considerations: Doxycycline Follow-up with Dr. Morales in 3-4 months documented in this encounter Progress Notes Deanna Morales MD - 11/22/2017 8:30 AM EDT Neurology Headache Clinic Follow-up Patient [...] Initial evaluation 10/26/2016: Patient was seen at [facility] by Dr. Le for MCCLELL[place], weakness and convulsions. He was placed on gabapentin and is using magnesium . He was then started on amitriptyline. He is an active person, runs marathons and is very active. 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 He is very clear about the fact [...] better, but not resolved. He went to [facility] for evaluationand management. He can [...] he was having. 156/100 BP. At the [facility] ED EKG, CXR, Cervical spine [...] up to now; also an evaluation in [place] is impending. With that in mind, I [...] but demyelination is a possibility. Neurosurgery 10/11/2016 [facility] MRI scan, and this revealed 2 [...] 0.27 - 4.20 mcIU/mL 2.83 LP 12/09/2016 (CECILIA) OP 17 cm H20 WBC 1, RBC 0, Protein 35, Glu 59 Medications tried: Patient reports that he is very sensitive to medications Botox injections: Date Procedure MIDAS 01/18/2017 Botox # 1 156, 90/90 M[place] days, 7/10 M[place] intensity 04/11/2017 Botox # 2 160, 90/90 [place] days, 8/10 M[place] intensity 07/06/2017 Botox # 3 (185 units) 180, 90/90 [place] days, 7/10 M[place]LE[place] intensity Gabapentin (SE sedation and feeling spacy) Propranolol [...] Prochlorpemazine Magnesium Tylenol Aleve/Naproxen sodium Advil/Ibuprofen ASA Medical MJ Current Medications: Medical MJ Lisinopril 5mg daily Diltiazem 30mg daily Aleve PRN Treatments not tried: Topamax Zonisamide Keppra Nortriptyline Venlafaxine Cyproheptadine/Periactin Flexeril Tizanidine/Zanaflex Robaxin Zofran Phenergan Reglan Prednisone Diamox/Acetazolamide Indomethacin PRN/Scheduled Riboflavin Coenzyme q 10 Sumatriptan PO/NS/SQ Treximet Relpax/Eletriptan Zomig/Zolmotriptan NS/PO Maxalt/Rizotriptan Axert/Almotriptan Amerge/Naratriptan Frova/Frovatriptan Migranal/DHE Nasal [place] DHE injections Doxycyline No h/o renal stones or asthma Other providers: [facility] Cardiology Dr. Velasco Interval History: Medical MJ started Aug 2017 He did have an appt with Dr. Nova Botox was not working for the patient He report that he did a lot of research on the medical MJ Focus on headache and decreased motivation to do his things He has been watching how it is effecting him He feels that this is very potent He is intention is to be functional He is using a pipe - one drag for the whole day Hybrid - star dog - hybrid worked well Working on growing the medication - acapoko gold - Seteva Working well He reports that the headache will disappear with the use of the mariajuana It will come back to the dame level and intensity He feels re-energized, he is getting his garden's ready He rode his bile 12-15 miles the other day He is running He is wanting to get after things His personality back Medications: Current Outpatient Prescriptions Medication Sig Dispense Refill ??? lisinopril (PRINIVIL;ZESTRIL) 10 mg Tablet Take [...] this visit. Physical Exam: Most Recent Vitals: 11/22/17 0810 BP: 143/88 Pulse: 71 Constitutional: Patient of apparent stated age, no [...] will continue to work with the dispensary. We discussed the option of eatables, vaping he will do the research. For management of the headache future consideration is for doxycycline. We also discussed neuromodulation - but he is not currently a candidate due to the loop recorder that he has in place. We discussed that [facility] is participating in the [place] Registry for Migraine Research, patient was provided with a hand out that includes information about the study but is not interested due to the possibility of violation of HIPPA rights and the use of medical MJ. # New Daily persistent Headache - migraine [...] 1 Future considerations: Doxycycline Follow-up with Dr. Morales in 3-4 months Deanna Morales MD [facility] Neurology This note was created using [employer] speech recognition software. Please pardon any errors. documented in this encounter Plan of Treatment Upcoming Encounters Date Type Specialty Care Team Description 02/14/2022 Office Visit Dermatology Ace Hardwick MD [facility] DR JENNIFER CASTELLANO-DERMAT [place] [id number] (Wo rk) 03/08/2022 Appointment Radiology Oscar De Oliveira MD [facility] NEUROSURGERY [place], [place] [address] (Wo rk) 03/08/2022 Office Visit Neurosurgery Oscar De Oliveira MD [facility] NEUROSURGERY [place], [place] [address] (Wo rk) 06/23/2022 Office Visit Neurology Annetta Hernandez APRN [facility] Neurology [place], [place] [address] (Wo rk) documented as of this encounter Visit Diagnoses Diagnosis NDPH (new daily persistent headache) New daily persistent headache documented in this encounter Care Teams Coal Mill Operator Relationship Specialty Start Date End Date Renee Corcoran APRN PCP - General Family Medicine 02/24/16 04/10/18 documented as of this encounter
--- OUTSIDE RECORDS SUMMARY | 2022-02-07 01:36 | XMS_ITS | Encounter Summary ---
:1955 Author Organization [facility] [place] [address] Care Team Providers Name Role Phone Uriah Davis MD Primary Care Provider Reason for Visit Reason Onset Date Comments Other 02/12/2020 Encounter Details Date Type Department Care Team Description 02/12/2020 Telephone Neurology at [facility] Deanna Morales MD Other [address] [place] [place] [address] NEUROLOGY DEPT [phone] [place], [place] [address] (Wo rk) Social History Tobacco [...] Telephone Encounter - Nicole Black RN - 02/12/2020 4:31 PM EDT Returned call to patient Telephone Encounter - Angelica Gutierrez - 02/12/2020 12:07 PM EDT Call Center / Muffle Worker Message - General Issue Call Provider patient sees in Clinic: Deanna Morales Caller and relationship (if other than patient-full name): patient Call back number: [phone] Ok to leave a message: yes Reason for call: Patient is calling stating he would like to speak with Dr. Andrew story's nurse stating he would like to catch up with her in regards to a conversation you were having yesterday. Patient would not go into further detail. Disposition of Call (choose one and remove others): ??? Routine Message sent to the Nurse: x documented in this encounter Plan of Treatment Upcoming Encounters Date Type Specialty Care Team Description 02/14/2022 Office Visit Dermatology Ace Hardwick MD [facility] DR JENNIFER CASTELLANO-DERMAT [place] [id number] (Wo rk) 03/08/2022 Appointment Radiology Oscar De Oliveira MD [facility] NEUROSURGERY [place], [place] [address] (Wo rk) 03/08/2022 Office Visit Neurosurgery Oscar De Oliveira MD [facility] NEUROSURGERY [place], [place] [address] (Wo rk) 06/23/2022 Office Visit Neurology Annetta Hernandez APRN [facility] ER [address] Neurology [place], [place] [address] (Wo rk) documented as of this encounter Visit Diagnoses Not on filedocumented in this encounter Care Teams Cooling Tower Operator Relationship Specialty Start Date End Date Uriah Davis MD PCP - General General Internal Medicine 04/11/[address] [place] [address] [address] [facility] 1 [place] [address] documented as of this encounter
--- OUTSIDE RECORDS SUMMARY | 2022-02-07 01:36 | XMS_ITS | Encounter Summary ---
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 Encounter Details Date Type Department Care Team Description 05/08/2019 Office Visit Neurosurgery at [facility] Oscar De Oliveira, Cerebral cavernoma [facility] [place] [address] [facility] [phone] [address] GAXIOLA [place], [place] [address] Social History Tobacco Use Types Packs/Day Years [...] Sign Reading Time Taken Comments Blood Pressure 154/76 05/08/2019 1:07 PM EDT Pulse 70 05/08/2019 1:07 PM EDT Temperature - - Respiratory Rate - - Oxygen Saturation - - Inhaled Oxygen Concentration - - Weight 68.9 kg (151 lb 14.4 oz) 05/08/2019 1:07 PM EDT Height 177.8 cm (5' 10) 05/08/2019 1:07 PM EDT Body Mass Index 21.79 05/08/2019 1:07 PM EDT documented in this encounter Progress Notes Oscar De Oliveira MD - 05/08/2019 1:15 PM EDT I am just seeing Mr. Garcia in follow-up. He is a 63-year-old male with known vascular anomalies within the midbrain. This is a routine imaging follow-up. Symptomatically he seems to be doing well. He is working with Dr. Morales who seems to be helping him keep his headaches under control. He has not had any focal neurologic issues since the last visit. On review of the MRI, there continues [...] obtain another MRI in approximately 3 years. If he has any symptoms between now and then he knows to contact us documented in this encounter Plan of Treatment Upcoming Encounters Date Type Specialty Care Team Description 02/14/2022 Office Visit Dermatology Ace Hardwick MD [facility] DR JENNIFER CASTELLANO-DERMAT OLOGY [place], [place] [address] (Wo rk) 03/08/2022 Appointment Radiology Oscar De Oliveira MD [facility] ER NEUROSURGERY [place], [place] [address] (Wo rk) 03/08/2022 Office Visit Neurosurgery Osacr De Oliveira MD [facility] NEUROSURGERY [place], [place] [address] (Jewell rothman) 06/23/2022 Office Visit Neurology Annetta Hernandez APRN [facility] [address] Neurology [place], [place] [address] (Wo rk) documented as of this encounter Visit Diagnoses Diagnosis 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
--- OUTSIDE RECORDS SUMMARY | 2022-02-07 01:36 | XMS_ITS | Encounter Summary ---
:1955 Author Organization [facility] [address] Care Team Providers Name Role Phone Tho Genao APRN Primary Care Provider Encounter Details Date Type Department Care Team Description 05/03[facility]2021 [facility] Neoplasm of uncertain behavior; Kyle STILES [place] (actinic keratosis); [address] [facility] Lentigines; [place] [address] [address] Tolliver angioma; [phone] [facility] History of basa l cell carcinoma (BCC); RD-DERMATOLOGY Multiple benign nevi of upper extremity, lower extremity, and trunk [place] [id number] Social History Tobacco Use Types Packs/Day Years [...] encounter Progress Notes Ace Hardwick MD - 05/03/2021 8:30 AM EDT Images from the original note were not included. 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 - Running 4AM daily, hiking, gardening, mountain biking, - 1 cat - Recently spent some time in [place], [place] - Wears sunscreen and a hat occasionally History of Present Illness: Braulio Garcia is 65 y.o. and here for the following: ??? Rough and scaly scabs on the scalp. History of AK's on the scalp previously treated with cryotherapy. ??? No specific lesions that are concerning. No spots that are changing colors, itching, or bleeding. ??? No known recurrence of previous skin cancer sites. ??? Requesting full skin exam. Medications: Reviewed in eD-H Allergies: Reviewed in eD-H Skin Examination Standby: Alix Seo Well developed, well-nourished in no apparent distress, alert and oriented to time, person, place and situation. Patient was asked to disrobe to the level of comfort. Patient declined evaluation of the following: [x] Area under the underwear Examination of the skin of the head - including the scalp, face, ears, eyelids, nose, lips, tongue, oral/conjunctival mucosa - neck, chest, abdomen, back, axillae, upper and lower extremities, including the nail plates, significant for the following: ?? 6 by 5 mm pink papule with atypical vessels on the right theresa lateral shoulder [Specimen A] ?? [place], hyperkeratotic slightly irregular papules on right helic x1 and left helix x1 [Total AK: 2] ?? [place] macules with rare hyperkeratosis on the scalp ?? Multiple, uniformly streeter, slightly irregular, polygonal macules c/w lentigos on sun-exposed areas of skin ?? Well-demarcated, round or oval, streeter or brown macules and papules with benign morphology on the head, neck, trunk, and extremities ?? Multiple, tolliver red 1 mm papules on the trunk Procedure / Biopsy Discussed with patient diagnostic options, including the risks and benefits of biopsy - including but not limited to recurrence, cosmesis (scar, dyspigmentation, scar spread,keloid), pain, keloid/hypertrophic scar, bleeding, infection for biopsy. Answered all questions. Patient verbally understands, ve rbally consents to and elects biopsy. Images Photo(s) taken by Saima Hardwick MD. with patient's verbal permission for use for clinical and educationpurposes. Figure A Procedure Time Out Performed: Name, , and site(s) confirmed with patient [x] Yes Blood Thinner? [] Denies [x] Yes - xarelto Pacemaker or defribrillator? [x] Denies [] Yes Joint Replacement in the last 24 months? [x] Denies [] Yes Antibiotics prior to procedures? [x] Denies [] Yes Allergy to lidocaine or epinephrine? [x] Denies [] Yes Permission to convey results: [x] myDH Procedure (s) A. [x] Shave Location (s) A. Right anterolateral shoulder Pre-Operative Diagnosis A. BCC vs Nevus vs Other Anesthesia: 1% lidocaine [] NO epi [x] 1:100,000 epi Sterile Prep Alcohol Lesion biopsied with shave technique using jody blade. Hemostasis achieved with [x] Drysol [] Monsels [] Elecrocautery. <1ml blood loss. No complications. Specimen(s): Placed in formalin and sent to Pathology for histologic examination. Post-op care: Vaseline, [x] Bandaid [] Pressure Dressing Post-operative pain: 0/10 Assessment/Plan Neoplasm of Uncertain Behavior, Right Shoulder Discussed differential diagnoses as above, and management options including diagnostic biopsy and its risk for scar, pain, infection as well as biopsy wound care instructions. Discussed that pathology results will be available in approximately 1 week; and patient to contact clinic if result is not available in 2 weeks. Answered all questions. Patient elects biopsy, as above. ?? Wound care instructions provided including cleaning Vaseline or topical antibiotic once or twice a day, allowing soapy water to wash over wound daily, and an optional Band-Aid or bandage. Recommend sun protection after the wound is healed to mitigate long-term redness. Actinic Keratoses Counseled: AKs, risk for progression to SCCs, and treatment options, including observation, cryotherapy, topicals, and PDT and major risks for each treatment, including but not limited to pain, scarring, retreatment/recurrence. Answered all questions. Handout given. ??? Total 2 treated with cryotherapy, 1 cycle at 5 seconds for each, after verbally discussing the disease and treatment options, cryotherapy method, expected results/course and potential adverse effects, including crusting, persistent erythema, scar, blister, pain, dyspigmentation, and recurrence. Pat ient verbally agreed. Patient tolerated well with no complications. Wound care instructions provided. If no resolution in 1 month or if scaling recurs after initial resolution, may contact clinic for re-evaluation and management. Actinic Damage Counseled: AKs, risk for progression to SCCs, and treatment options, including observation, cryotherapy, topicals, and PDT and major risks for each treatment, including but not limited to pain, scarring, retreatment/recurrence. Answered all questions. Handout given. ?? Will continue to clinically monitor. Counseled patients on signs to return to clinic. Nevi Morphology reassuring for benign nevi. Counseled: Nevi and risks for melanoma arising in a nevus. Recommend regular self-examinations. Answered all questions. Reviewed ABCDEs of melanoma, as below. ??? Return to clinic as needed for changes in color, size, shape or thickness or should bleeding or other symptoms occur. Patient agrees to plan. Lentigines Benign. Counseled: lentigines, sun damage and spontaneous development, rare risk of lentigo maligna (melanoma arising in a lentigo), sun protection, no treatment necessary but discussed cosmetic options, including topical bleaching agents, as well as chemical peels and lasers. Answered all questions. Handout given. Tolliver Angiomas Counseled: tolliver angiomas. Benign. No treatment necessary unless symptoms develop. Treatment considered cosmetic and inh-ti-dciczc. Treatment options, including but not limited to electrocautery, discussed. Handout given. History of Skin Cancer No clinical evidence of recurrence in scars. Patient Counseled [Skin Cancer] Counseled: recommend sun protection, regular self skin exams, provider skin exams every 6 months, and the ABCDEs of melanoma/NMSC. Answered all questions. Handouts on how to do a self-exam, skin cancers and sun protection/recommended OTC sunscreens given to the patient. Joint decision for skin cancer screening in 6 months. ?? Regular self examinations and return to clinic for new suspicious lesions or if changes/symptoms in existing lesions develop. Follow-up: 6 months for FSE. Return sooner as needed for suspicious lesion, new or worsening dermatitis. [] Recall placed [x] Forwarded to general internal medicine doctor [] Patient scheduled before exiting Scribe attestation: AMY Randhawa has performed the documentation for this encounter in the presence of and acting as a scribe for Ace Hardwick MD FAADanita. I performed the above scribed service and agree with the accuracy of the documentation in this encounter. Reviewed and signed by: Ace Hardwick MD FAADanita Dermatology [facility] Ace Hardwick MD - 05/03/2021 8:30 AM EDT [id number] Right anterolateral shoulder, skin shave biopsy: - ??Basal cell carcinoma, nodular type, present at the peripheral and deep specimen??edges NODULAR BCC, RIGHT ANTEROLATERAL SHOULDERRecommend excision with 4mm margins and linear repair. Lessefficacious option: C&E Nicole Mondragon CCMA - 05/03/2021 8:30 AM EDT Spoke to patient regarding biopsy results. Answered all questions. Patient agrees with excision procedure. Scheduled for 06/24/2021 at 8am. documented in this encounter Plan of Treatment Upcoming Encounters Date Type Specialty Care Team Description 02/14/2022 Office Visit Dermatology Ace Hardwick MD [facility] ER DR JENNIFER CASTELLANO-DERMAT [place], [place] [address] (Wo rk) 03/08/2022 Appointment Radiology Oscar De Oliveira MD [facility] NEUROSURGERY [place], [place] [address] (Wo rk) 03/08/2022 Office Visit Neurosurgery Oscar De Oliveira MD [facility] ER NEUROSURGERY [place], [place] [address] (Wo rk) 06/23/2022 Office Visit Neurology Annetta Hernandez APRN [facility] DRIVE Neurology [place], [place] [address] (Wo rk) documented as of this encounter Procedures Procedure Name Priority Date/Time Associated Diagnosis Comme nts SPECIMEN TO Routine 05/03/2021 9:48 AM Neoplasm of Results f or this PATHOLOGY EDT uncertain behavior procedure are in the results section. SURGICAL PATHOLOGY Routine 05/03/2021 8:46 AM Res ults for this REPORT EDT procedure are i n the results section. documented in this encounter Results Specimen to Pathology (05/03/2021 9:48 AM EDT) Specimen Anatomical Collection Method Collection Time Receive d Time (Source) Location / / Volume Laterality AP Specimen 05/03/2021 9:48 AM 9:48 EDT AM EDT Narrative [facility] - 05/03/2021 9:48 AM EDT Specimen requisition ordered. ??Separate Pathology report to follow Ace Hardwick MD PATHOLOGY/CYTOLOGY ORDERABLE S Performing Organization Address City/State/[place] [address] Surgical Pathology Report (05/03/2021 8:46 AM EDT) Component Value Ref Test Analysis Performed At [facility] gist Range Method Time Signature Surgical [id number] ? Location: [facility] Pathology [place] Report The signing pathologist has (i) examined the relevant preparation(s) for the [facility] specimen(s) and (ii) rendered or confirmed the diagnosis(es) . HOSPITAL LABORATORY . ?Surgic al Pathology DIAGNOSIS Right anterolateral shoulder, skin shave biopsy: - ??Basal cell carcinoma, no dular type, present at the peripheral and deep specimen edges Electronically signed by: ?Kayleen STILES, Marek Samayoa Verified: ??05/05/2021 16:09 ??Dermatopathologist, Bone & Soft Tissue Pathologist Performed at: ??-[facility] Dept. of Pathology, [place], [place] SPECIMEN(S) SUBMITTED A - right anterolateral shoulder, skin shave biopsy (1) CLINICAL INFORMATION 6 x 5 mm pink papule with atypical vessels. BCC vs nevus vs other SPECIMEN PROCESSING A - Labeled/Fixative: Patient demographics, formalin. Quantity/Size: ??Single, 0.8 x 0.5 cm. Tissue Description: Nonoriented ovalle-white skin shave of a 0.7 x 0.6 cm firm, granular and slightly domed streeter lesion. Sections/Processing: Inked, trisected and entirely submitted in 1 cassette labele d A1. ??shb Specimen (Source) Anatomical Collection Method Collection Time Re ceived Time Location / / Volume Laterality 05/03/2021 8:46 AM EDT Ace Hardwick MD PATHOLOGY/CYTOLOGY ORDERABLE S Performing Organization Address City/State/[place] [address] [facility] [address] documented in this encounter Visit Diagnoses Diagnosis Neoplasm of uncertain behavior Neoplasm of uncertain behavior, site uns pecified [place] (actinic keratosis) Actinic keratosis Lentigines Other dyschromia Tolliver angioma Nevus, non-neoplastic History of basal cell carcinoma (BCC) Multiple benign nevi of upper extremity, lower extremity, and trunk documented in this encounter Care Teams Software Consultant Relationship Specialty Start Date End Date Tho Genao, ANALYTICS INTERN PCP - General Family Medicine 02/08/[address] [place] [address] documented as of this encounter
--- OUTSIDE RECORDS SUMMARY | 2022-02-07 01:36 | XMS_ITS | Encounter Summary ---
:1955 Author Organization [facility] [place] [address] Care Team Providers Name Role Phone Uriah Davis MD Primary Care Provider Encounter Details Date Type Department Care Team Description 02/15/2019 Orders Only Neurology at [facility] [place] [place] [address] Social History Tobacco Use Types Packs/Day Years [...] 02/14/2022 Office Visit Dermatology Ace Hardwick MD [facility] DR JENNIFER CASTELLANO-DERMAT OLOGY [place], [place] [address] (Jewell rothman) 03/08/2022 Appointment Radiology Oscar De Oliveira MD [facility] DR GAXIOLA [place], [place] [address] (Jewell rothman) 03/08/2022 Office Visit Neurosurgery Oscar De Oliveira MD [facility] NEUROSURGERY [place], [place] [address] (Wo rk) 06/23/2022 Office Visit Neurology Annetta Hernandez APRN [facility] Neurology [place], [place] [address] (Wo rk) documented as of this encounter Visit Diagnoses Not on filedocumented in this encounter Care Teams Picture Enlarger Relationship Specialty Start Date End Date Uriah Davis MD PCP - General General Internal Medicine 04/11/18 [address] [place] [address] documented as of this encounter
--- OUTSIDE RECORDS SUMMARY | 2022-02-07 01:36 | XMS_ITS | Encounter Summary ---
:1955 Author Organization [facility] Address [address] [place] [address] Care Team Providers Name Role Phone Unavailable Primary Care Provider Unavailable Encounter Details Date Type Department Care Team Description 06/05/2008 Hospital Encounter [facility] - Rex Hendricks Maple conversion MD [address] [facility] [address] [phone] [facility] 1 [place] [address] (Wo rk) Social History Tobacco Use Types Packs/Day Years Used Date Never Assessed Sex Assigned at Date Recorded Not on file documented as of this encounter Discharge Disposition Disposition Code Departure Means Destination Auto Discharge documented in this encounter Plan of Treatment Upcoming Encounters Date Type Specialty Care Team Description 09/13/2022 Office Visit Cardiology Shelton Smith MD [address] [facility] [address] [address] (Wo rk) documented as of this encounter Visit Diagnoses Not on filedocumented in this encounter
--- OUTSIDE RECORDS SUMMARY | 2022-02-07 01:36 | XMS_ITS | Encounter Summary ---
:1955 Author Organization [facility] Address [address] [place] [address] Care Team Providers Name Role Phone Uriah Davis MD Primary Care Provider Reason for Visit Reason Comments Migraine Encounter Details Date Type Department Care Team Description 08/02/2018 Office Visit Neurology at [facility] Deanna Morales MD Intractable chronic migraine without aur a and with status migrainosus; [facility] NDP H (new daily persistent headache) Drive [address] [place], [place] NEUROLOGY DEPT [address] [place] [address] [phone] Social History Tobacco Use Types Packs/Day Years [...] Sign Reading Time Taken Comments Blood Pressure 143/97 08/02/2018 8:43 AM EST Pulse 68 08/02/2018 8:43 AM EST Temperature - - Respiratory Rate - - Oxygen Saturation - - Inhaled Oxygen Concentration - - Weight 68 kg (150 lb) 08/02/2018 8:43 AM EST reported Height 177.8 cm (5' 10) 08/02/2018 8:43 AM EST reporte d Body Mass Index 21.52 08/02/2018 8:43 AM EST documented in this encounter Patient Instructions Patient InstructionsDeanna Morales MD - 08/02/2018 9:00 AM EST Office Number: ([facility] - [place]) Clinic nurse number for most issues and prescription refills (Karishma) (Nicole) For Prescription Refills: Please call for refills when you have one month left on your medication, we have 48 hours from the time you call to get the medication refill placed. Please call the clinic rather then using [employer] or e-mail, as the communication is better [...] day as needed Future considerations: Doxycycline Aimovig Follow-up with Dr. Morales in 6 months documented in this encounter Progress Notes Deanna Morales MD - 08/02/2018 9:00 AM EST Neurology Headache Clinic Follow-up Patient [...] Initial evaluation 10/26/2016: Patient was seen at [facility] by Dr. Le for MCCLELLAND, weakness and convulsions. He was placed on gabapentin and is using magnesium . He was then started on amitriptyline. He is an active person, runs marathons and is very active. 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 He is very clear about the fact [...] better, but not resolved. He went to [facility] for evaluationand management. He can not [...] he was having. 156/100 BP. At the [facility] ED EKG, CXR, Cervical spine X [...] up to now; also an evaluation in [place] is impending. With that in mind, I [...] but demyelination is a possibility. Neurosurgery 10/11/2016 [facility] MRI scan, and this revealed 2 [...] h/o renal stones or asthma Other providers: [facility] Cardiology Dr. Velasco Interval History: Patient presents with his this morning He reports every day is the same He has been keeping an overview of the headaches The headache continues the same intensity 7-8/10 when the MJ effects of the MJ are remitted - this is the middle of the afternoon There are some days that he will have to vape 2x per day - about once a month There does not seem to be a consistent trigger for him The headache Will go to 0/10 after using the MJ (vaping) - he believes that he is headache free for 7-8 hours He will usually line up his activities - grocery shopping and running errands He is doing the tasks that will focus and locked in Patient is running and doing well He had a excellent new years and myke He is finding enjoyment in social events He is doing some research for the annual report for [facility] Medications: Current Outpatient Medications Medication Sig Dispense [...] this visit. Physical Exam: Most Recent Vitals: 08/02/18 0843 BP: (!) 143/97 Pulse: 68 151/90 68 P Constitutional: Patient of apparent stated age, no [...] conversion to Aimovig or another monoclonal ab. He is doing more activities. When he finds that the MJ becomes inhibiting to his activities - thenhe will consider a change. Neuromodulation is not an option at this time - but he is not currently a candidate due to the loop recorder that he has in place. We will renew his paperwork for medical MJ Has evaluation with cardiology in September 2018, he will track BP # New Daily persistent Headache - migraine without aura phenotype Headache attributed to cavernous angioma - Keep a Headache diary - For Headache Prevention: Medical MJ - For mild to moderate MCCLELLAND Naproxen sodium 550mg twice a day as needed Vistaril 25 - 50mg twice a day as needed Future considerations: Doxycycline [place] clonal antibodies # hypertension - track BP - f/u with Cardiology and PCP Follow-up with Dr. Morales in 6 month Deanna Morales MD [facility] Neurology Medications Tried ([x] checked have been [...] [] Acupuncture [] Acupressure [] Biofeedback [] Insurance Loss Control Surveyor [] Cognitive Behavioral Therapy [] Massage therapy [] Physical therapy [] Craniosacral therapy documented in this encounter Plan of Treatment Upcoming Encounters Date Type Specialty Care Team Description 02/14/2022 Office Visit Dermatology Ace Hardwick MD [facility] [address] CASTELL[address] [place], [place] [address] (Wo rk) 03/08/2022 Appointment Radiology Oscar De Oliveira MD [facility] NEUROSURGERY [place], [place] [address] (Wo rk) 03/08/2022 Office Visit Neurosurgery Oscar De Oliveira MD [facility] NEUROSURGERY [place], [place] [address] (Wo rk) 06/23/2022 Office Visit Neurology Mary, Annetta M, PLASTIC PRINTER [facility] [address] Neurology [place], [place] [address] (Wo rk) documented as of this encounter Visit Diagnoses Diagnosis Intractable chronic migraine without aur a and with status migrainosus Chronic migraine without aura, with intr actable migraine, so stated, with status migrainosus NDPH (new daily persistent headache) New daily persistent headache documented in this encounter Care Teams Department Store General Manager Relationship Specialty Start Date End Date Uriah Davis MD PCP - General General Internal Medicine 04/11/18 [address] [place] [address] documented as of this encounter
--- OUTSIDE RECORDS SUMMARY | 2022-02-07 01:36 | XMS_ITS | Encounter Summary ---
:1955 Author Organization [facility] [place] [address] Care Team Providers Name Role Phone Renee Corcoran Candi PHILLIPS Primary Care Provider Reason for Visit Reason Onset Date Comments Medication Refill 11/29/2017 Encounter Details Date Type Department Care Team Description 11/29/2017 Refill Neurology at [facility] Deanna Morales MD [facility] [place] [address] NEUROLOGY DEPT [phone] [place], [place] [address] (Wo rk) Social History Tobacco [...] Ace Hardwick MD [facility] ER [address] JENNIFER CASTELLANO-DERMAT [place]LOG[place], [place] [address] (Wo rk) 03/08/2022 Appointment Radiology Oscar De Oliveira MD [facility] ER DR NEUROSURGERY [place], [place] [address] (Wo rk) 03/08/2022 Office Visit Neurosurgery Oscar De Oliveira MD [facility] ER DR NEUROSURGERY [place], [place] [address] (Wo rk) 06/23/2022 Office Visit Neurology Annetta Hernandez APRN [facility] [address] Neurology [place], [place] [address] (Wo rk) documented as of this encounter Visit Diagnoses Not on filedocumented in this encounter Care Teams Ginner Helper Relationship Specialty Start Date End Date Renee Corcoran APRN PCP - General Family Medicine 02/24/16 04/10/18 documented as of this encounter
--- OUTSIDE RECORDS SUMMARY | 2022-02-07 01:36 | XMS_ITS | Encounter Summary ---
:1955 Author Organization [facility] [place] [address] Care Team Providers Name Role Phone RusscherylRenee APRN Primary Care Provider Encounter Details Date Type Department Care Team Description 09/14/2017 Telephone Neurology at [facility] Deanna Morales MD [facility] [place] [address] NEUROLOGY DEPT [phone] [place], [place] [address] (Wo rk) Social History Tobacco [...] Telephone Encounter - Nicole Black RN - 09/14/2017 4:13 PM EST Patient called and left a message on the nurse triage line stating he was just going to check in. Hestates he called yesterday about his insurance and hopes he did not mess anything up. He will be on the for his next set of Botox injections which will be injection #3. He states he did get a few strains of the medical marijuana and states it is a learning process . He states he is getting some relief from it and is keeping good notes on the use and affect afterward. He would like to touch baseover the phone if possible before he comes in. Call patient back and I informed him that his calling about the insurance was perfect as it gave me the heads up to notify the nurse quality compliance manager and therefore notify the department as her prior authorizations to make sure that they recognize that while it is still a [employer] plan, it is a different [employer] plan. He states the dispensary was very helpful in helping him pick out 3 different strains ofthe medical marijuana. He states he does a lot of research and the staff there was really helpful and agreed with his decisions. He is going to play with the timings of the doses to see what feels best. At this point he is only using 1 puff to feel better. He would like me to assist in his procedure when he comes in to see Dr. Nova for his next Botox injections and I informed him that he can ask for 1 of the staff to track me down if I am not in my office when he comes in. documented in this encounter Plan of Treatment Upcoming Encounters Date Type Specialty Care Team Description 02/14/2022 Office Visit Dermatology Ace Hardwick MD [facility] [address] CASTELLNAO-DERMAT [place]LOG[place], [place] [address] (Wo rk) 03/08/2022 Appointment Radiology Oscar De Oliveira MD [facility] NEUROSURGERY [place], [place] [address] (Wo rk) 03/08/2022 Office Visit Neurosurgery Oscar De Oliveira MD [facility] NEUROSURGERY [place], [place] [address] (Wo stephan) 06/23/2022 Office Visit Neurology Annetta Hernandez APRN [facility] Neurology [place], [place] [address] (Wo rk) documented as of this encounter Visit Diagnoses Not on filedocumented in this encounter Care Teams Staple Side Laster Relationship Specialty Start Date End Date Renee Corcoran, SUBASSEMBLER PCP - General Family Medicine 02/24/16 04/10/18 documented as of this encounter
--- OUTSIDE RECORDS SUMMARY | 2022-02-07 01:36 | XMS_ITS | Encounter Summary ---
:1955 Author Organization [facility] [place] [address] Care Team Providers Name Role Phone Uriah Davis MD Primary Care Provider Encounter Details Date Type Department Care Team Description 03/06/2019 Orders Only Neurosurgery at [facility] Jennifer Bates, Cerebral cavernoma [facility] [place] [address] Social History Tobacco Use Types Packs/Day [...] 02/14/2022 Office Visit Dermatology Ace Hardwick MD [facility] DR EJNNIFER CASTELLANO-DERMAT OLOGY [place], [place] [address] (Wo rk) 03/08/2022 Appointment Radiology Oscar De Oliveira MD [facility] DR [place], [place] [address] (Wo rk) 03/08/2022 Office Visit Neurosurgery Oscar De Oliveira MD [facility] NEUROSURGERY [place], [place] [address] (Wo rk) 06/23/2022 Office Visit Neurology Annetta Hernandez APRN [facility] Neurology [place], [place] [address] (Wo rk) documented as of this encounter Results XR Chest PA & [...] report, please contact e number below. ? Narrative 05/08/2019 11:05 AM EDT EXAMINATION: XR [...] markings are within normal limits. No ac [place] osseous abnormality. Procedure Note Braulio Pickard MD - 05/08/2019Formatt ing of this note might be different from the original. EXAMINATION: XR CHEST PA AND LATERAL (Side.Cr NERIC) CLINICAL HISTORY: internal loop recorder ; needs checked prior to MRI TECHNIQUE: Frontal and lateral views of the chest COMPARISON: None FINDINGS: Anterior chest wall loop recorder in jayce ce. No additional hardware. Lungs are clear. No pneumothorax or pleural effusi ons. Scarring at the posterior costophrenic angles. Cardiomediastinal s ilhouette, rubia, pulmonary vascular markings are within normal limits. No ac sho[place] osseous abnormality. IMPRESSION Anterior chest wall loop recorder in jayce ce. No additional hardware. I have personally reviewed the image(s) and the residents interpretation and agree with the findings, Braulio sheppard 05/08/2019 11:05 AM Thank you for letting us participate in the care of this patient. For questions regarding this report, please contact e number below. 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
--- OUTSIDE RECORDS SUMMARY | 2022-02-07 01:36 | XMS_ITS | Encounter Summary ---
:1955 [place] [address] Care Team Providers Name Role Phone Uriah Davis MD Primary Care Provider Reason for Visit Reason Comments Headache Encounter Details Date Type Department Care Team Description 08/05/2019 Office Visit Neurology at [facility], Deanna Childs MD NDPH (new daily persistent headache); Road [facility] Cavernoma; [address] Intractable chronic migraine without aur a and with status migrainosus [place], [place] NEUROLOGY DEPT [address] [place] [address] [phone] Social History Tobacco Use Types Packs/Day Years [...] Sign Reading Time Taken Comments Blood Pressure 132/87 08/05/2019 12:05 PM EST Pulse 66 08/05/2019 12:05 PM EST Temperature - - Respiratory Rate - - Oxygen Saturation - - Inhaled Oxygen Concentration - - Weight 68 kg (150 lb) 08/05/2019 12:05 PM EST Height 177.8 cm (5' 10) 08/05/2019 12:05 PM EST report ed Body Mass Index 21.52 08/05/2019 12:05 PM EST documented in this encounter Patient Instructions Patient InstructionsDeanna Morales MD - 08/05/2019 12:30 PM EST Office Number: ([place] - [place]) Clinic nurse number for most issues and prescription refills (Karishma) (Ayde) (Nicole) For Prescription Refills: Please call for refills when you have one month left on your medication, we have 48 hours from the time you call to get the medication refill placed. Please call the clinic rather then using [employer] or e-mail, as the communication is better [...] follow with Dr. De Oliveira in Neurosurgery Follow-up with Dr. Morales in 6 months documented in this encounter Progress Notes Deanna Morales MD - 08/05/2019 12:30 PM EST Neurology Headache Clinic Follow-up Patient [...] Initial evaluation 10/26/2016: Patient was seen at [facility] by Dr. Le for MCCLELLAND, weakness and convulsions. He was placed on gabapentin and is using magnesium . He was then started on amitriptyline. He is an active person, runs marathons and is very active. 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 He is very clear about the fact [...] better, but not resolved. He went to [facility] for evaluationand management. He [...] he was having. 156/100 BP. At the [facility] ED EKG, CXR, Cervical [...] up to now; also an evaluation in [place] is impending. With that in mind, I [...] but demyelination is a possibility. Neurosurgery 10/11/2016 [facility] MRI scan, and this revealed 2 [...] 0.27 - 4.20 mcIU/mL 2.83 LP 12/09/2016 ([place]) OP 17 cm H20 WBC 1, RBC 0, Protein 35, Glu 59 Current Headache Medications: Medical MJ Lisinopril 5mg daily Diltiazem 30mg daily Aleve PRN No h/o renal stones or asthma Other providers: [facility] Cardiology Dr. Velasco Interval History: Patient is presenting with his for f/u evaluation He is continuing to do well He is having a tough day - he was in A fib last night He has a EP special He is getting a major headache with the A fib bouts It is a different type of headache There is a nausea with the headache and different to the baseline NDPH headache This is a severe headache 8-9/10 in intensity HR will go up to 150 when he is having any headache sx When the headache comes on in the evening He is having increased HR and it may approach the 150 BP was fine It is the tiredness The headache is the same and it has not changed He is continuing to monitor his progress on the medical MJ He is very scheduled and regimented about the use of MJ He reports no sx of addiction No loss of exercise tolerance 10.6 Cardiac cephalalgia Description: Migraine-like headache, usually but not always aggravated by exercise, occurring duringan episode of myocardial ischaemia. It is relieved by nitroglycerine. Diagnostic criteria: A. Any headache ful?lling criterion C B. Acute myocardial ischaemia has been demonstrated C. Evidence of causation demonstrated by at least two of the followin. headache has developed in temporal relation to the onset of acute myocardial ischaemia 2. either or both of the following: a) headache has signi?cantly worsened in parallel with worsening of the myocardial ischaemia b) headache has signi?cantly improved or resolved in parallel with improvement in or resolution of the myocardial ischaemia 3. headache has at least two of the following four characteristics: a) moderate to severe intensity b) accompanied by nausea c) not accompanied by phototophia or phonophobia d) aggravated by exertion 4. headache is relieved by nitroglycerine or derivatives of it D. Not better accounted for by Patient is not having ischemia - but we discussed that he does not have ischemia But that there is criteria Medications: Current Outpatient Medications Medication Sig Dispense Refill ??? fish oil-omega-3 fatty acids 1,000 mg [...] this visit. Physical Exam: Most Recent Vitals: 08/05/19 1205 BP: 132/87 Pulse: 66 Constitutional: Patient of apparent stated age, no [...] do very well with his medical marijuana. Patient wants to continue with thecurrent regimen that he is on with the medical MJ - I have filled out his medical marijuana paperwork and it will be scanned into the system and he consented in. He is aware that he can have a change in therapy whenever he desires. The next step would be the useof monoclonal antibodies against CGRP or its receptor. He is aware that there is anew class of medication that he can try in the future - monoclonal antibodies against CGRP and its receptor. He will continue to follow with Dr. De Oliveira in the neurosurgery clinic. He will have repeat imaging in 3 years - 04/2022. He will also continue to work with Cardiology and EP for the management of his Atrial fibrillation. Appt Duration 25 minutes More the 50% [...] twice a day as needed Future considerations: [place] clonal antibodies Doxycycline Repeat ONB # atrial fibrillation - f/u with Cardiology and PCP Follow-up with Dr. Morales in 6 month Deanna Morales MD [facility] Neurology Medications Tried [...] [] Acupuncture [] Acupressure [] Biofeedback [] Primary Care Physician [] Cognitive Behavioral Therapy [] Massage therapy [] Physical therapy [] Craniosacral therapy documented in this encounter Plan of Treatment Upcoming Encounters Date Type Specialty Care Team Description 02/14/2022 Office Visit Dermatology Ace Hardwick MD [facility] DR JENNIFER CASTELLANO-DERMAT [place], [place] [address] (Wo rk) 03/08/2022 Appointment Radiology Oscar De Oliveira MD [facility] NEUROSURGERY [place], [place] [address] (Wo rk) 03/08/2022 Office Visit Neurosurgery Oscar De Oliveira MD [facility] NEUROSURGERY [place], [place] [address] (Wo rk) 06/23/2022 Office Visit Neurology Annetta Hernandez APRN [facility] [address] Neurology [place], [place] [address] (Wo rk) documented as of this encounter Visit Diagnoses Diagnosis NDPH (new daily persistent headache) New daily persistent headache Cavernoma Congenital vascular hamartomas Intractable chronic migraine without aur a and with status migrainosus Chronic migraine without aura, with intr actable migraine, so stated, with status migrainosus documented in this encounter Care Teams Shop Steward Relationship Specialty Start Date End Date Uriah Davis MD PCP - General General Internal Medicine 04/11/18 1 [address] [facility] [address] [place], [place] [address] documented as of this encounter
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
--- OUTSIDE RECORDS SUMMARY | 2022-02-07 01:36 | XMS_ITS | Encounter Summary ---
:1955 Author Organization [facility] [place] [address] Care Team Providers Name Role Phone Tho Genao APRN Primary Care Provider Encounter Details Date Type Department Care Team Description 10/25/2021 Office Visit Dermatology at [facility], Actinic keratoses; Kyle STILES History of nonmelanoma skin cancer; [address] [facility] Lentigines; [place] [address] Multiple benign nevi of upper extremity, lower extremity, and trunk; [phone]-DERMATOLOGY [place], [place] [address] Social History Tobacco Use Types [...] encounter Progress Notes Ace Hardwick MD - 10/25/2021 8:30 AM EDT Images from the original note were not included. DEPARTMENT OF DERMATOLOGY Medical Dermatology Clinic Provider: Ace Hardwick MD FAAD at Dermatology at [facility] Patient's preferred name Bill PAST MEDICAL HISTORY (if blank, patient denies history) Melanoma - Dysplastic nevi - SCC - BCC right anterolateral shoulder, BCC s/p excision Jun 2021 Right lateral clavicle, BCC, Feb 2009 Right inferior clavicle, BCC, Feb 2009 Left pretibial, BCC, s/p January 2011 Right scapula, BCC AK [x] cryotherapy [x] Carac [] PDT [] Other Relevant Medications [] Immunosuppression [] Transplant [] Oncogenic medication [] Nicotinamide 500mg po bid Other relevant history - FAMILY HISTORY (if blank, patient denies history) Melanoma - NMSC - Other relevant history - SOCIAL HISTORY 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 History of Present Illness: Braulio Garcia is 65 y.o. and here for the following: ??? No known recurrence of previous skin cancer sites. ??? Requesting cancer screening. Medications: Reviewed in eD-H Allergies: Reviewed in eD-H Skin Examination Well developed, well-nourished in no apparent distress, alert and oriented to time, person, place and situation. Patient was asked to disrobe to the level of comfort. Examination of the skin of the head - including the scalp, face, ears, eyelids, nose, lips, tongue, oral/conjunctival mucosa - neck, chest, abdomen, back, axillae, upper extremities, including the nailplates, significant for the following. Exam Findings/Assessment/Plan Actinic Keratosis [place], hyperkeratotic slightly irregular papules on the scalp and right antihelix; and right anteriorshoulder x 1 Counseled: AKs, risk for progression to SCCs, and treatment options, including observation, cryotherapy, topicals, and PDT and major risks for each treatment, including but not limited to pain, scarring, retreatment/recurrence. Answered all questions. Handout given. Patient elects cryotherapy to the right shoulder and efudex to the superior scalp. ??? Total 1 (right shoulder) treated with cryotherapy, 1 cycle at 5 seconds for each, after verballydiscussing the disease and treatment options, cryotherapy method, expected results/course and potential adverse effects, including crusting, persistent erythema, scar, blister, pain, dyspigmentation, and recurrence. Patient verbally agreed. Patient tolerated well with no complications. Wound care instructions provided. If no resolution in 1 month or if scaling recurs after initial resolution, may contact clinic for re-evaluation and management. ??? Start fluorouracil 5% cream to superior scalp and right antihelix bid for 2- 4 weeks; stop 5 daysafter erosions develop and do not use more than 4 weeks total. Counseled: fluorouracil, mechanism ofaction, approved uses and expected response, including but not limited to flu-like illness, redness,crusting, pain, swelling and tenderness of treated skin expected to develop during treatment. Showedpatient pictures of expected response during and after use. Warned not to get in eyes. Discussed using medication as tolerated; may use concomitantly with Vaseline for symptomatically relief; avoid sun exposure due to exacerbation of response and pain; and stopping use for a day or two if inflammation becomes too intense or patient experiences discomfort. For any severe discomfort or side effects, patient was encouraged to call for further advice and possible evaluation. Handout on fluorouracil and specific instructions for use given to patient. o Re-evaluate in 4 months. Lentigines Multiple, uniformly streeter, slightly irregular, polygonal macules c/w lentigos on sun-exposed areas of skin Benign. Counseled: lentigines, sun damage and spontaneous development, rare risk of lentigo maligna (melanoma arising in a lentigo), sun protection, no treatment necessary but discussed cosmetic options, including topical bleaching agents, as well as chemical peels and lasers. Answered all questions. Handout given. Seborrheic Keratoses Scattered, stuck-on, well-demarcated, streeter or brown, waxy or warty papules c/w SKs on the head, trunkand extremities Benign. No treatment necessary. Counseled: SKs, benign, treatment options for symptomatic lesions. Answered all questions. Handout given. Nevi Well-demarcated, round or oval, streeter or brown macules and papules with benign morphology on the head,neck, trunk and extremities Morphology reassuring for benign nevi. Counseled: Nevi and risks for melanoma arising in a nevus. Recommend regular self-examinations. Answered all questions. Reviewed ABCDEs of melanoma, as below. ??? Return to clinic as needed for changes in color, size, shape or thickness or should bleeding or other symptoms occur. Patient agrees to plan. Tolliver Angiomas Tolliver red papules on the trunk and extremities Counseled: tolliver angiomas. Benign. No treatment necessary unless symptoms develop. Treatment considered cosmetic and [id number]. Treatment options, including but not limited to electrocautery, discussed. Handout given. History of Skin Cancer No clinical evidence of recurrence in scars, as listed above ??? Recommend regular evaluation of scars ??? Return to clinic if suspect recurrence. Patient agrees to plan. Patient Counseled [Skin Cancer] [x] History of skin cancer [] History of immunosuppression [] History of extensive sun exposure [] Family history of skin cancer Counseled: recommend sun protection, regular self skin exams, provider skin exams every 6 months, and the ABCDEs of melanoma/NMSC. Answered all questions. Handouts on how to do a self-exam, skin cancers and sun protection/recommended OTC sunscreens given to the patient. Joint decision for skin cancer screening in 4 months when re-evaluate AK response to efudex. ?? Regular full body self examinations and return to clinic for new suspicious lesions or if changes/symptoms in existing lesions develop. Follow-up: Skin cancer screening and re-evaluate efudex response in 4 months. Return sooner as needed for suspicious lesion, new or worsening dermatitis. [] Recall placed [x] Forwarded to hot mill observer [] Patient scheduled before exiting Reviewed and signed by: Ace Hardwick MD [facility] documented in this encounter Plan of Treatment Upcoming Encounters Date Type Specialty Care Team Description 02/14/2022 Office Visit Dermatology Ace Hardwick MD [facility] DR JENNIFER CASTELLANO-DERMAT OLOGY [place], [place] [address] (Wo stephan) 03/08/2022 Appointment Radiology Oscar De Oliveira MD [facility] DR GAXI[place]A [place], [place] [address] (Jewell rothman) 03/08/2022 Office Visit Neurosurgery Oscar De Oliveira MD [facility] [address] NEUROSURGERY [place], [place] [address] (Wo rk) 06/23/2022 Office Visit Neurology Annetta Hernandez APRN [facility] [address] Neurology [place], [place] [address] (Wo rk) documented as of this encounter Visit Diagnoses Diagnosis Actinic keratoses Actinic keratosis History of nonmelanoma skin cancer Personal history of other malignant neop lasm of skin Lentigines Other dyschromia Multiple benign nevi of upper extremity, lower extremity, and trunk Seborrheic keratoses documented in this encounter Care Teams Core Oven Tender Relationship Specialty Start Date End Date Tho Genao APRN PCP - General Family Medicine 02/08/[address] [place] [address] documented as of this encounter
--- OUTSIDE RECORDS SUMMARY | 2022-02-07 01:36 | XMS_ITS | Encounter Summary ---
:1955 Author Organization [place] [address] Care Team Providers Name Role Phone Jewell Renee Christopher APRN Primary Care Provider Encounter Details Date Type Department Care Team Description 08/14/2017 Telephone Neurology at [facility] Deanna Morales MD [place] [address] NEUROLOGY DEPT [phone] [place], [place] [address] (Wo rk) Social History Tobacco [...] Telephone Encounter - Nicole Black RN - 08/16/2017 4:29 PM EST Therapeutic cannabis forms completed and mailed to patient. Telephone Encounter - Nicole Black RN - 08/15/2017 10:24 AM EST Called patient and directed him to the [place] website for therapeutic cannabis: [email or web address] Explained that he will fill out the Registered Patient Application and Dr. Morales will fill out the Health Pier Master Verification Form. I will mail him Dr. Morales's completed packet as he will need to sign the last page. He can then send in the entire packet when he applies for the certification. Telephone Encounter - Nicole Black RN - 08/14/2017 3:03 PM EST Patient called and left a message on the triage line stating he & his have decided they would like to pursue therapeutic cannabis and would like to discuss the information needed to proceed with this. documented in this encounter Plan of Treatment Upcoming Encounters Date Type Specialty Care Team Description 02/14/2022 Office Visit Dermatology Ace Hardwick MD [facility] DR JENNIFER CASTELLANO-DERMAT OLOGY [place] [id number] (Wo rk) 03/08/2022 Appointment Radiology Oscar De Oliveira MD [facility] ER NEUROSURGERY [place], [place] [address] (Wo rk) 03/08/2022 Office Visit Neurosurgery Oscar De Oliveira MD [facility] NEUROSURGERY [place], [place] [address] (Wo rk) 06/23/2022 Office Visit Neurology Annetta Hernandez APRN [facility] [address] Neurology [place], [place] [address] (Wo rk) documented as of this encounter Visit Diagnoses Not on filedocumented in this encounter Care Teams Sales Training Manager Relationship Specialty Start Date End Date Renee Corcoran APRN PCP - General Family Medicine 02/24/16 04/10/18 documented as of this encounter
--- OUTSIDE RECORDS SUMMARY | 2022-02-07 01:36 | XMS_ITS | Encounter Summary ---
:1955 Author Organization [facility] [place] [address] Care Team Providers Name Role Phone Tho Genao APRN Primary Care Provider Encounter Details Date Type Department Care Team Description 02/17/2021 Hospital Encounter XRay at [facility] Francisca Price Right knee pain, unspecified chronicity; [address] [facility] [address] Annetta MD Acute pain of left knee [facility] [address] CENTER [phone] [place] [address] Social History Tobacco Use Types Packs/Day Years [...] Dispensed Refills Start Date End Date rivaroxaban (Xarelto) 20 Take 20 mg by mouth 0 mg Tablet daily. MARIJUANA INHL Inhale into the 0 lungs. fish oil-omega-3 fatty Take 1 g by mouth 0 acids 1,000 mg Capsule daily. lisinopril Take by mouth 2 times 0 07/10/2017 (PRINIVIL;ZESTRIL) 10 mg daily. 2 tablets in TabletIndications: 10mg am AM 1 tablet in PM 20mg pm Indications: 10mg am 20mg pm ascorbic acid, Vitamin C, Take 500 mg by mouth 0 (Vitamin C) 500 mg Tablet daily. multivitamin (THERAGRAN) Take 1 tablet by 0 Tablet mouth daily. DILTiazem (CARDIZEM) 30 mg Take 60 mg by mouth 2 0 Tablet times daily. documented as of this encounter Plan of Treatment Upcoming Encounters Date Type Specialty Care Team Description 02/14/2022 Office Visit Dermatology Ace Hardwick MD [facility] ER DR JENNIFER CASTELLANO-DERMAT OLOGY [place], [place] [address] (Wo rk) 03/08/2022 Appointment Radiology Oscar De Oliveira MD [facility] ER NEUROSURGERY [place], [place] [address] (Wo rk) 03/08/2022 Office Visit Neurosurgery Oscar De Oliveira MD [facility] ER NEUROSURGERY [place], [place] [address] (Wo rk) 06/23/2022 Office Visit Neurology Annetta Hernandez APRN [facility] ER DRIVE Neurology [place], [place] [address] (Wo rk) documented as of this encounter Procedures Procedure Name Priority Date/Time Associated Diagnosis Comme nts XR KNEE STANDING Routine 02/17/2021 8:49 AM Right knee pain, R esults for this ALIGNMENT AP LAT EDT unspecified procedure a re in SKYLINE LEFT chronicity the results Acute pain of left section. knee documented in this encounter Results XR Knee Standing Alignment AP Lat [place] Left (02/17/2021 8:49 AM EDT) Anatomical Region Laterality Modality Knee Left Digital Radiography Specimen (Source) Anatomical Location Collection Method / Collectio n Time Received Time / Laterality Volume Impressions 02/17/2021 9:12 AM EDT Moderate to severe medial compartment space narrowing LEFT knee. Mild LEFT knee tricompartmental osteophytosis, compatib le with osteoarthritis. Small LEFT knee joint effusion. Degenerative changes RIGHT knee, as visu alized on standing bilateral view. Standing alignment views: Normal alignment of mechanical axis RIGH T knee. Medial displacement of mechanical axis LEFT knee by approximate ly 1.6 cm. Thank you for letting us participate in the care of this patient. ??If you are a health care provider and have any questi ons regarding this report, please contact the number below. ??For patients who have questions please contact the health critical care clinical nurse specialist that requested your imaging first. ? Electronically signed by: Manny flores MD, [facility] ([phone]), at 02/17/2021 9:12 AM Narrative 02/17/2021 9:12 AM EDT EXAMINATION: XR KNEE STANDING ALIGNMENT AP LAT SKYLINE LEFT CLINICAL HISTORY: LEFT knee pain TECHNIQUE: Separate images of the pelvis , knees and feet were acquired in the AP projection with the patient standing. Th chemo images were stitched together to form a composite image of the pelvis and legs allowing for evaluation of lower extremity alignment in the weight bearin g position. Standing alignment views COMPARISON: None FINDINGS: Moderate to severe medial compartment sp yoseph narrowing LEFT knee. Mild LEFT knee tricompartmental osteophytosis, compatib le with osteoarthritis. Small LEFT knee joint effusion. Degenerative changes RIGHT knee, as visu alized on standing bilateral view. Standing alignment views: Normal alignment of mechanical axis RIGH T knee. Medial displacement of mechanical axis LEFT knee by approximate ly 1.6 cm. Procedure Note Manny Ponce MD - 02/17/2021Form atting of this note might be different from the original. EXAMINATION: XR KNEE STANDING ALIGNMENT AP LAT SKYLINE LEFT CLINICAL HISTORY: LEFT knee pain TECHNIQUE: Separate images of the pelvis , knees and feet were acquired in the AP projection with the patient standing. Th chemo images were stitched together to form a composite image of the pelvis and legs allowing for evaluation of lower extremity alignment in the weight bearin g position. Standing alignment views COMPARISON: None FINDINGS: Moderate to severe medial compartment sp yoseph narrowing LEFT knee. Mild LEFT knee tricompartmental osteophytosis, compatib le with osteoarthritis. Small LEFT knee joint effusion. Degenerative changes RIGHT knee, as visu alized on standing bilateral view. Standing alignment views: Normal alignment of mechanical axis RIGH T knee. Medial displacement of mechanical axis LEFT knee by approximate ly 1.6 cm. IMPRESSION Moderate to severe medial compartment sp yoseph narrowing LEFT knee. Mild LEFT knee tricompartmental osteophytosis, compatib le with osteoarthritis. Small LEFT knee joint effusion. Degenerative changes RIGHT knee, as visu alized on standing bilateral view. Standing alignment views: Normal alignment of mechanical axis RIGH T knee. Medial displacement of mechanical axis LEFT knee by approximate ly 1.6 cm. Thank you for letting us participate in the care of this patient. If you are a health care provider and have any questi ons regarding this report, please contact the number below. For patients w ho have questions please contact the health critical care clinical nurse specialist that requested your imaging first. Electronically signed by: Manny flores MD, [facility] ([phone]), at 02/17/2021 9:12 AM Francisca Price MD IMG DX ORDERABLES documented in this encounter Visit Diagnoses Diagnosis Right knee pain, unspecified chronicity Acute pain of left knee documented in this encounter Care Teams Certified Court Interpreter Relationship Specialty Start Date End Date Tho Genao, HELP DESK INTERN PCP - General Family Medicine 02/08/[address] [place] [address] [address] [place] [address] documented as of this encounter
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
--- OUTSIDE RECORDS SUMMARY | 2022-02-07 01:36 | XMS_ITS | Encounter Summary ---
:1955 Author Organization [facility] [place] [address] Care Team Providers Name Role Phone Tho Genao APRN Primary Care Provider Reason for Referral Diagnostic Test (Routine) - New Request Specialty Diagnoses / Procedures Referred By Contact Refer red To Contact Radiology Diagnoses Cavernous malformation Oscar De Oliveira MD [facility] Rad Mri Procedures MRI Brain wwo Contrast (Generic) [facility] [address] [facility] [place] [address] [place] [address] Referral ID Status Reason Start Expiration Visits Visits Date Date Requested Authorized [id number] New Request Specialty 01/17/2022 07/14/2023 1 1 Service Requested Encounter Details Date Type Department Care Team Description 01/12/2022 Orders Only Neurosurgery at [facility] Katina Zuñiga Cavernous [facility] [place] [address] Social History Tobacco Use Types Packs/Day [...] 02/14/2022 Office Visit Dermatology Ace Hardwick MD [facility] ER DR JENNIFER CASTELLANO-DERMAT OLOGY [place], [place] [address] (Wo rk) 03/08/2022 Appointment Radiology Oscar De Oliveira MD 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
--- OUTSIDE RECORDS SUMMARY | 2022-02-07 01:36 | XMS_ITS | Encounter Summary ---
:1955 Author Organization [facility] Address [address] [place] [address] Care Team Providers Name Role Phone Danish Cao DO Primary Care Provider Encounter Details Date Type Department Care Team Description 06/05/2008 Before [facility] - Rex Hendricks , Converted Visit Shavon santamaria MD (Shavon) 111 [facility] [address] [phone] [facility] 1 [place] [id number] (Wo rk) Social History Tobacco Use Types Packs/Day Years Used Date Never Assessed Sex Assigned at Date Recorded Not on file documented as of this encounter Progress Notes Rex Hendricks MD - 02/13/2009 0021 EDT RE: NAME: BRAULIO GARCIA : [birth year] [place] [address] Manny Moore MD [facility] Cardiology [address], [address] [place] [address] Cao and Dr. Moore: I had the pleasure of seeing your patient, Braulio Garcia in the office today. As you know, Mr. Oliver a very pleasant gentleman who has a history of paroxysmal atrial fibrillation for the last coupleof years that has been quite troublesome to him. 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 Hewas treated with Coumadin following an arterial embolus to the radial artery and he has been tried on beta blockers and calcium channel blockers for rate control, apparently tolerates the beta blockers much better than the calcium channel alfreda, althoughhe tolerates each poorly and finally he was tried on flecainide which resulted in nightmares and personality change. He is currently being managed just with rate control and anticoagulation for approximately 21 days, still feels fairly fatigued and not like himself, but is no longer having the nightmares. Past medical history: Otherwise benign. Allergies: He is allergic to fresh fruits and had a reaction to calcium channel blockers and flecainide. Family history: He has a family history of cancer and heart disease. He does not have a personal history of hypercholesteremia, hypertension or diabetes. His mother is alive at age 74. His father at age 71 of a heart attack. He does not smoke, drink alcohol or take recreational drugs. He drinks one large cup of coffee a day. He has a good appetite. He has had a recent weight loss of about 10 pounds. He runs an hour and a half everyand feels that it is more effort for him now than it was in the past. 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 Review of systems: A comprehensive review of systems questionnaire was filled out in the office and was positive only for dizziness, chest pain, weakness in his arms and legs, allergies, eyeglasses, headaches and shortness of breath. On physical examination, his weight is 154 pounds. Blood pressure is 140/100 with a heart rate in the 40s and regular. Lungs are clear. He has a normal S1 and S2 without murmurs, rubs or gallops. We had a long conversation about atrial fibrillation and the various treatment options. We talked about antiarrhythmic medications, the risk of prior arrhythmia, the risk of side effects, rate control,anticoagulation and finally we talked about ablation for atrial fibrillation. We also discussed risk factors for stoke and treatment with aspirin and beta blockers. To start with, I think that an embolic event to aperipheral artery while it is jenna that it was notto the brain, likely confers the same risk as a prior stroke or TIA and would makehim a ROSA score of 2 and would recommend code official anticoagulation with Coumadin independent of whether or not his rhythm is controlled in the future with ablation or antiarrhythmic drugs. Having discussed various treatment options, Mr. Garcia seems predisposed towards having an ablation procedure given the reactions that he has had to medications in the past. I nonetheless encourage him to continue to think over our conversation and we will back in touch with him in the next week or so to see if he still feels like pursuing an ablation procedure. He certainly is a reasonable candidate and we will be in contact with him in the near future to decide how we would like to proceed. Medications have been reviewed and updated with the patient. A copy of the current medications has been provided. Thank you very much for allowing us to participate in Mr. Jose lynn. If you have any questions or comments, please do not hesitate to call. Sincerely, Signed by Rex Hendricks MD 06/11/2008 17:24 Rex Hendricks MD - Rex Hendricks MD - [facility] Job ID: [id number] Doc ID: [id number] cc: DO Manny Hu MD documented in this encounter Plan of Treatment Upcoming Encounters Date Type Specialty Care Team Description 09/13/2022 Office Visit Cardiology Shelton Smith MD [address] [place] [address] 2[address] [place], [place] [phone] (Wo rk) documented as of this encounter Visit Diagnoses Not on filedocumented in this encounter Care Teams Slip Injector And Applicator Relationship Specialty Start Date End Date Danish Cao DO PCP - General 11/26/08 06/26/16 [address] [facility] [facility] [place] [address] documented as of this encounter
--- OUTSIDE RECORDS SUMMARY | 2022-02-07 01:36 | XMS_ITS | Encounter Summary ---
:1955 Author Organization [facility] Address [place] [id number] Care Team Providers Name Role Phone Uriah Davis MD Primary Care Provider Reason for Referral Diagnostic Test (Routine) - Closed Specialty Diagnoses / Procedures Referred By Contact Refer red To Contact Radiology Diagnoses Cavernoma Deanna Morales MD [facility] Rad Mri Procedures MRI Brain wwo Contrast (Generic) [facility] [place] [address] [place] [address] Referral ID Status Reason Start Date Expiration Date Visits V isits Requested Authorized [id number] Closed Specialty 05/01/2019 06/29/2019 1 1 Service Requested Reason for Visit Diagnostic Test (Routine) - Closed Specialty Diagnoses / Procedures Referred By Contact Refer red To Contact Radiology Diagnoses Ca[place]oma Deanna Morales MD [facility] Rad Mri Procedures MRI Brain wwo Contrast (Generic) [facility] [place] [address] [place] [address] Referral ID Status Reason Start Date Expiration Date Visits V isits Requested Authorized [id number] Closed Specialty 05/01/2019 06/29/2019 1 1 Service Requested Encounter Details Date Type Department Care Team Description 05/08/2019 Hospital En[place] [facility] Deanna Morales MD [place] [address] [place] [address] NEUROLOGY DEPT [phone] [facility] [place] [address] (Wo rk) Social History Tobacco [...] Dermatology Ace Hardwick MD [facility] ER DR [address]-DERMAT [place], [place] [address] (Wo rk) 03/08/2022 Appointment Radiology Oscar De Oliveira MD [facility] ER DR NEUROSURGERY [place], [place] [address] (Wo rk) 03/08/2022 Office Visit Neurosurgery Oscar De Oliveira MD [facility] ER DR NEUROSURGERY [place], [place] [address] (Wo rk) 06/23/2022 Office Visit Neurology Annetta Hernandez APRN [facility] [address] Neurology [place], [place] [address] (Wo rk) documented as of this encounter Procedures Procedure Name Priority Date/Time Associated Diagnosis Comme nts MRI BRAIN WWO Routine 05/08/2019 10:42 AM Cavernoma Results for this CONTRAST (GENERIC) EDT procedure are in the results section. documented in this encounter Results MRI Brain wwo Contrast [...] ? Electronically signed by: Chaitanya Landaverde MD, [facility] ([phone]), at 05/08/2019 2:04 PM Narrative 05/08/2019 2:04 [...] below. Electronically signed by: Chaitanya Landaverde MD, [facility] ([phone]), at 05/08/2019 2:04 PM Deanna Morales MD IMG MRI ORDERABLES documented in this encounter Visit Diagnoses Diagnosis Cavernoma Congenital vascular hamartomas documented in this encounter Administered Medications Inactive Administered Medications - up to 3 most recent administrations Medication Order MAR Action Action Date Dose Rate Site gadoterate meglumine (DOTAREM) Given 05/08/2019 10:31 AM EDT 14 mLs 0.5 mmol/mL (376.9 mg/mL) injection 0-100 mL 0-100 mL, Intravenous, ONCE PRN, 1 dose, Starting on Mon05/08/19 at 1031, Until Mon05/08/19 at 1031, Per Protocol, Radiology Contrast, Routine documented in this encounter Care Teams Hooking Machine Operator Relationship Specialty Start Date End Date Uriah Davis MD PCP - General General Internal Medicine 04/11/[address] [place] [address] documented as of this encounter
--- OUTSIDE RECORDS SUMMARY | 2022-02-07 01:36 | XMS_ITS | Encounter Summary ---
:1955 Author Organization [facility] Address [address] [place] [address] Care Team Providers Name Role Phone Unavailable Primary Care Provider Unavailable Encounter Details Date Type Department Care Team Description 08/25/2008 Hospital Encounter [facility] 111 [facility] [address] [place], [place] [id number] [place] [address] [facility] 1 [place] [address] (Wo rk) Social History Tobacco Use Types Packs/Day Years Used Date Never Assessed Sex Assigned at Date Recorded Not on file documented as of this encounter Discharge Disposition Disposition Code Departure Means Destination Auto Discharge documented in this encounter Plan of Treatment Upcoming Encounters Date Type Specialty Care Team Description 09/13/2022 Office Visit Cardiology Shelton Smith MD [address] [place] [address] [phone] (Wo rk) documented as of this encounter Procedures Procedure Name Priority Date/Time Associated Comments Diagnosis PTT Routine 08/25/2008 12:42 Results for this EST procedure are i n the results section. PROTIME Routine 08/25/2008 12:42 Results for this EST procedure are i n the results section. COMPLETE BLOOD COUNT Routine 08/25/2008 12:42 Res ults for this EST procedure are i n the results section. BUN Routine 08/25/2008 12:42 Results for this EST procedure are i n the results section. CREATININE Routine 08/25/2008 12:42 Results for this EST procedure are i n the results section. ELECTROLYTES Routine 08/25/2008 12:42 Results for this EST procedure are i n the results section. TRANSESOPHAGEAL ECHO 08/25/2008 12:08 Res ults for this (F[facility]EDOM) EST procedure are i n the results section. documented in this encounter Results CREATININE (08/25/2008 12:42 EST) Pathologist Sig nature Creatinine 0.86 0.7 - 1.5 mg/dl [facility] GFR, Calculated >60 ml/min/1.73m2 [facility] Specimen Performing Organization Address [facility] Phon e Number [facility] [address] [place] [address] SERVICES [facility] [address] [place] [address] BUN (08/25/2008 12:42 EST) Pathologist Sig nature BUN 23 10 - 26 mg/dl [facility] Specimen Performing Organization Address [facility] Phon e Number [facility] [address] [place] [address] SERVICES [facility] [address] [place] [address] ELECTROLYTES (08/25/2008 12:42 EST) Pathologist Sig nature Sodium 141 136 - 145 mEq/L [facility] Potassium 4.6 3.5 - 5.0 mEq/L [facility] Chloride 104 96 - 110 mEq/L [facility] CO2 30 24 - 32 mEq/L [facility] Specimen Performing Organization Address [facility] Phon e Number [facility] [address] [place] [address] SERVICES [facility] [address] [place] [address] HEMAGRAM (08/25/2008 12:42 EST) Pathologist Sig nature WBC 4.89 4.0 - 10.4 K/cmm [facility] RBC 4.71 4.36 - 5.78 M/cmm [facility] Hemoglobin 14.7 13.8 - 17.3 gm/dl [facility] HCT 41.8 39.5 - 50.2 % [facility] MCV 89 81 - 95 fl [facility] MCH 31.2 27.6 - 33.0 pg [facility] MCHC 35.2 32.8 - 36.4 gm/dl [facility] PLT 283 141 - 320 K/cmm [facility] RDW-CV 12.2 11.8 - 14.1 % [facility] Specimen Performing Organization Address [facility]/ZIP Code Phon e Number [facility] [address] [place] [address] SERVICES [facility] [address] [place] [address] (ABNORMAL) PTT (08/25/2008 12:42 EST) Pathologist Sig nature PTT 43 (H)Comment: 20 - 35 secs [facility] Therapeutic Heparin range: 60-100 seconds Specimen Performing Organization Address City/[facility]/ZIP [facility] Phon e Number [facility] [address] [place] [address] SERVICES [facility] [address] [place] [address] (ABNORMAL) PROTIME (08/25/2008 12:42 EST) Pro Time 16.2 (H) 12.0 - 15.0 [facility] secs I.N.R. 1.3 (H) 0.9 - 1.1 [facility] Comment: Ratio Moderate Intensity Coumadin INR = 2.0-3.0 Adjustments in anticoagulant therapy dose should be based upon the INR and NOT the Pro Time. Specimen Performing Organization Address [facility] Phon e Number [facility] [address] [place] [address] SERVICES [facility] [address] [place] [address] TRANSESOPHAGEAL ECHO (FREEDOM) (08/25/2008 12:08 EST) Specimen Narrative [facility] - 04/30/2009 13 :19 EDT X *[facility]* [address] [place] [id number] Interpreting Group: [facility] [address] [place] [address] Height: ? 70 in ( 178 cm ) S/D Pressure: Patient status: Outpatient Weight: ? 155 lb ( 70.45 kg ) BSA: ?1.88 m^2 Referring MD: ?? Rex Hendricks MD Fellow: ? Dmitry Hernnadez MD Performing MD: ??Braulio Espinoza MD Referring MD: ?? Danish Cao *STUDY CONCLUSIONS* SUMMARY - ??Overall left ventricular systolic fu nction was normal. Left ventricular ejection fraction was estimated in the r pilar of 60 % to 65 %. There were no left ventricular regional wall m otion abnormalities. Left ventricular wall thickness was mildly in creased. - ??There was mild aortic root dilatatio n. - ??The left atrial appendage function w as normal (normal emptying velocity). There was no left atrial appe ndage thrombus identified. *INDICATIONS AND HISTORY* DIAGNOSES SUPPORTING MEDICAL NECESSITY: 427.31 Atrial fibrillation HISTORY: Atrial fibrillation. *PROCEDURE DATA* PROCEDURE INFORMATION: A transesophageal complete 2D study was performed. Additional evaluation included complete spectral Doppler and c olor Doppler. An adult multi-plane probe was inserted by the cardiology [facility] under direct supervision of the attending service correspondent. This study was i nterpreted by [facility] at [facility] . Dr. Braulio Espinoza MD was in attendance during the entire procedure. No barriers to education identified. Image quality was excellent. The risks, benefits, and alternatives of the procedure were expla ined to the patient and informed consent was obtained. Prior to the proce dure, the oropharynx was anesthetized with 5% Lidocaine ointment. The patient was given midazolam ( 5 mg ) and fentanyl ( 100 mcg ). The pro be utilized was an adult sized multiplane probe. There were no complica tions during the transesophageal echo procedure. Final verification compl eted with patient, physician, and staff by Dayanna Triana RN *CARDIAC ANATOMY* LEFT VENTRICLE: - ??Left ventricular size was normal. - ??Overall left ventricular systolic fu nction was normal. - ??Left ventricular ejection fraction w as estimated in the range of 60 % to 65 %. - ??There were no left ventricular regio nal wall motion abnormalities. - ??Left ventricular wall thickness was mildly increased. RIGHT VENTRICLE: - ??Right ventricular size was normal. - ??Right ventricular systolic function was normal. - ??Right ventricular wall thickness was normal. LEFT ATRIUM: - ??Left atrial size was normal. - ??The left atrial appendage size was n ormal. - ??There was no left atrial appendage t hrombus identified. Doppler interpretation(s): - ??The left atrial appendage function w as normal (normal emptying velocity). RIGHT ATRIUM: - ??Right atrial size was normal. AORTIC VALVE: - ??The aortic valve was trileaflet. - ??Aortic valve thickness was normal. - ??There was normal aortic valve leafle t excursion. Doppler interpretation(s): - ??There was no significant aortic valv e stenosis by color Doppler and spectral Doppler. - ??There was trivial aortic valvular re gurgitation by color Doppler. MITRAL VALVE: - ??Mitral valve structure was normal. - ??There was normal mitral valve leafle t excursion. Doppler interpretation(s): - ??There was no significant mitral valv e stenosis by color Doppler and spectral Doppler. - ??There was trivial mitral valvular re gurgitation by color Doppler. PULMONIC VALVE: - ??The structure of the pulmonic valve appeared to be normal. Doppler interpretation(s): - ??There was no significant pulmonic va lve stenosis by color Doppler and spectral Doppler. - ??There was trivial pulmonic regurgita tion by color Doppler. TRICUSPID VALVE: - ??The tricuspid valve structure was no rmal. - ??Tricuspid leaflet excursion was norm al. Doppler interpretation(s): - ??There was no significant tricuspid v alve stenosis by color Doppler and spectral Doppler. - ??There was mild tricuspid valvular re gurgitation by color Doppler. PERICARDIUM: - ??There was no significant pericardial effusion. AORTA: - ??There was mild aortic root dilatatio n. - ??The ascending aorta was normal. - ??The aortic arch was normal. - ??The descending aorta was normal. PULMONARY ARTERY: - ??The pulmonary artery was normal size . Doppler interpretation(s): - ??The estimated peak pulmonary artery systolic pressure was mildly increased. - ??Estimated peak pulmonary artery syst olic pressure in the range of 35 mmHg to 40 mmHg. SYSTEMIC VEINS: - ??The superior vena cava was normal in size. PULMONARY VEINS: - ??Three pulmonary veins were identifie d - the left upper, left lower and the right upper. There was normal flow v elocity. - ??There was no evidence for a patent f oramen ovale by color flow Doppler. *MEASUREMENT TABLES* 2D measurements AORTA ? NORMAL Ao root M-L ed ??42 ??mm ??-- Reviewed and signed by Braulio Espinoza MD Confirmed 25-Aug-2008 15:26:28 Procedure Note Braulio Espinoza MD - 04/30/2009 X *[facility]* [address] [place], [place] [address] Interpreting Group: [facility] [address] [place] [address] Height: 70 in ( 178 cm ) S/D Pressure: Patient status: Outpatient Weight: 155 lb ( 70.45 kg ) BSA: 1.88 m^2 Referring MD: Rex Hendricks MD Fellow: Dmitry Hernandez MD Performing MD: Braulio Espinoza MD Referring MD: Danish Cao *STUDY CONCLUSIONS* SUMMARY - Overall left ventricular systolic func tion was normal. Left ventricular ejection fraction was estimated in the r pilar of 60 % to 65 %. There were no left ventricular regional wall m otion abnormalities. Left ventricular wall thickness was mildly in creased. - There was mild aortic root dilatation. - The left atrial appendage function was normal (normal emptying velocity). There was no left atrial appe ndage thrombus identified. *INDICATIONS AND HISTORY* DIAGNOSES SUPPORTING MEDICAL NECESSITY: 427.31 Atrial fibrillation HISTORY: Atrial fibrillation. *PROCEDURE DATA* PROCEDURE INFORMATION: A transesophageal complete 2D study was performed. Additional evaluation included complete spectral Doppler and c olor Doppler. An adult multi-plane probe was inserted by the cardiology [facility] under direct supervision of the attending service correspondent. This study was i nterpreted by [facility] at [facility] . Dr. Braulio Espinoza MD was in attendance during the entire procedure. No barriers to education identified. Image quality was excellent. The risks, benefits, and alternatives of the procedure were expla ined to the patient and informed consent was obtained. Prior to the proce dure, the oropharynx was anesthetized with 5% Lidocaine ointment. The patient was given midazolam ( 5 mg ) and fentanyl ( 100 mcg ). The pro be utilized was an adult sized multiplane probe. There were no complica tions during the transesophageal echo procedure. Final verification compl eted with patient, physician, and staff by Dayanna Triana RN *CARDIAC ANATOMY* LEFT VENTRICLE: - Left ventricular size was normal. - Overall left ventricular systolic func tion was normal. - Left ventricular ejection fraction was estimated in the range of 60 % to 65 %. - There were no left ventricular regiona l wall motion abnormalities. - Left ventricular wall thickness was mi ldly increased. RIGHT VENTRICLE: - Right ventricular size was normal. - Right ventricular systolic function wa s normal. - Right ventricular wall thickness was n ormal. LEFT ATRIUM: - Left atrial size was normal. - The left atrial appendage size was nor mal. - There was no left atrial appendage thr ombus identified. Doppler interpretation(s): - The left atrial appendage function was normal (normal emptying velocity). RIGHT ATRIUM: - Right atrial size was normal. AORTIC VALVE: - The aortic valve was trileaflet. - Aortic valve thickness was normal. - There was normal aortic valve leaflet excursion. Doppler interpretation(s): - There was no significant aortic valve stenosis by color Doppler and spectral Doppler. - There was trivial aortic valvular regu rgitation by color Doppler. MITRAL VALVE: - Mitral valve structure was normal. - There was normal mitral valve leaflet excursion. Doppler interpretation(s): - There was no significant mitral valve stenosis by color Doppler and spectral Doppler. - There was trivial mitral valvular regu rgitation by color Doppler. PULMONIC VALVE: - The structure of the pulmonic valve ap peared to be normal. Doppler interpretation(s): - There was no significant pulmonic valv e stenosis by color Doppler and spectral Doppler. - There was trivial pulmonic regurgitati on by color Doppler. TRICUSPID VALVE: - The tricuspid valve structure was norm al. - Tricuspid leaflet excursion was normal . Doppler interpretation(s): - There was no significant tricuspid khurram ve stenosis by color Doppler and spectral Doppler. - There was mild tricuspid valvular regu rgitation by color Doppler. PERICARDIUM: - There was no significant pericardial e ffusion. AORTA: - There was mild aortic root dilatation. - The ascending aorta was normal. - The aortic arch was normal. - The descending aorta was normal. PULMONARY ARTERY: - The pulmonary artery was normal size. Doppler interpretation(s): - The estimated peak pulmonary artery sy stolic pressure was mildly increased. - Estimated peak pulmonary artery systol ic pressure in the range of 35 mmHg to 40 mmHg. SYSTEMIC VEINS: - The superior vena cava was normal in s ize. PULMONARY VEINS: - Three pulmonary veins were identified - the left upper, left lower and the right upper. There was normal flow v elocity. - There was no evidence for a patent for amen ovale by color flow Doppler. *MEASUREMENT TABLES* 2D measurements AORTA NORMAL Ao root M-L ed 42 mm -- Reviewed and signed by Braulio Espinoza MD Confirmed 25-Aug-2008 15:26:28 Performing Organization Address City/State/ZIP Code Phon e Number [facility] [address] [facility] [address] [facility] [address] [place], [place] [address] documented in this encounter Visit Diagnoses Not on filedocumented in this encounter
--- OUTSIDE RECORDS SUMMARY | 2022-02-07 01:36 | XMS_ITS | Encounter Summary ---
:1955 Author Organization [facility] [place] [address] Care Team Providers Name Role Phone Tho Genao APRN Primary Care Provider Encounter Details Date Type Department Care Team Description 01/12/2022 Telephone Neurosurgery [place] [facility] [place] [address] Social History Tobacco Use Types Packs/Day [...] encounter Miscellaneous Notes Telephone Encounter - Nicole Lilly - 02/01/2022 8:48 AM EDT Attempted to contact pt. LM to call office back. Pt scheduled for MRI brain on 03/08/22 at 1150 am. F/u with [facility] same day at 330pm. Sending appt card. Closing encounter. Telephone Encounter - Nicole Lilly - 01/18/2022 8:48 AM EDT Spoke to pt. Completed screening questions. Pt available on either 03/03/22 or 03/10/22 with earliest check in at 10 am. [facility] available for an office visit at 330 pm either afternoon. Sending rad request. Telephone Encounter - Anushka Delvalle - 01/12/2022 9:16 AM EDT RN, Please pend orders for 3 year MRI Brain per [facility] note 05/08/2019 Dishroom Attendant, Once ordered, please coordinate OV w/ [facility] per pt request, using recall in system Aurora Reveles documented in this encounter Plan of Treatment Upcoming Encounters Date Type Specialty Care Team Description 02/14/2022 Office Visit Dermatology Ace Hardwick MD [facility] [address] [place] [phone] (Wo rk) 03/08/2022 Appointment Radiology Oscar De Oliveira MD [facility] NEUROSURGERY [place], [place] [address] (Wo rk) 03/08/2022 Office Visit Neurosurgery Oscar De Oliveira MD [facility] NEUROSURGERY [place], [place] [address] (Wo rk) 06/23/2022 Office Visit Neurology Annetta Hernandez APRN [facility] LIS Neurology [place], [place] [address] (Wo rk) documented as of this encounter Visit Diagnoses Not on filedocumented in this encounter Care Teams Pet Sitting Relationship Specialty Start Date End Date Tho Genao APRN PCP - General Family Medicine 02/08/[address] [place] [address] [address] [place] [address] documented as of this encounter
--- OUTSIDE RECORDS SUMMARY | 2022-02-07 01:36 | XMS_ITS | Encounter Summary ---
:1955 Author Organization [facility] [place] [address] Care Team Providers Name Role Phone Uriah Davis MD Primary Care Provider Encounter Details Date Type Department Care Team Description 02/15/2019 Telephone [place] [facility] [place] [address] Social History Tobacco Use Types Packs/Day [...] this encounter Miscellaneous Notes Telephone Encounter - Kanwal Morocho - 03/07/2019 9:06 AM EDT Pt called this am and spoke w HM = scheduled XR and appt card sent Telephone Encounter - Kanwal Morocho - 03/06/2019 3:40 PM EDT Christiane in radiology called to inform pt ready for scheduling = scheduled and needs chest XR prior to MRI XR order needs to be placed ~~~~~~~~~~~~~~~~~~~~~~~~~~~~~~~~~~~~~~~~~~ RN: [facility] = Chest XR for MRI scheduled 04/09 Telephone Encounter - Kanwal Morocho - 03/06/2019 3:18 PM EDT Called radiology to inform OP notes in scan docs = Christiane sent note to [facility] to safety ck prior to scheduling Postpone 2d Telephone Encounter - Kanwal Morocho - 03/06/2019 3:10 PM EDT OP notes rcvd and sent to scan docs Telephone Encounter - Kanwal Morocho - 03/05/2019 12:59 PM EDT Called radiology to schedule f/u MRI = informed need internal loop recorder OP notes prior to scheduling Called pt to inquire about where ILR completed = [facility] Called [facility] to inquire re: OP notes to be faxed to for upload = spoke jasmin Carreon who is faxing OP notes and implant information ~~~~~~~~~~~~~~~~~~~~~~~~~~~~~~~~~~~~~~~~~~~~~~~~~ [facility] Medical Office Building [address], [address] [place] [address] Telephone Encounter - Charlie Hensley - 02/15/2019 12:28 PM EDT Neurosurgery Schedulers, 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 Patient previously seen by [facility] in 09/2016 for this dx, now requesting a f/u with [facility]. Please review and and schedule. Closing referral at this time. Charlie documented in this encounter Plan of Treatment Upcoming Encounters Date Type Specialty Care Team Description 02/14/2022 Office Visit Dermatology Ace Hardwick MD [facility] DR [address]STELL[address] [place], [place] [address] (Wo rk) 03/08/2022 Appointment Radiology Oscar De Oliveira MD [facility] NEUROSURGERY [place], [place] [address] (Wo rk) 03/08/2022 Office Visit Neurosurgery Oscar De Oliveira MD [facility] NEUROSURGERY [place], [place] [address] (Wo rk) 06/23/2022 Office Visit Neurology Annetta Hernandez APRN [facility] [address] Neurology [place], [place] [address] (Wo rk) documented as of this encounter Visit Diagnoses Not on filedocumented in this encounter Care Teams Vmware Architect Relationship Specialty Start Date End Date Uriah Davis MD PCP - General General Internal Medicine 04/11/[address] [place] [address] documented as of this encounter
--- OUTSIDE RECORDS SUMMARY | 2022-02-07 01:37 | XMS_ITS | Encounter Summary ---
:1955 Author Organization [facility] [place] [address] Care Team Providers Name Role Phone Russcheryl Renee Christopher APRN Primary Care Provider Encounter Details Date Type Department Care Team Description 11/10/2016 Laboratory Appointment Lab 3L [facility] Headache, unspecified [facility] [place] [phone] Social History Tobacco Use Types Packs/Day Years Used Date Former Smoker Smokeless Tobacco: Never Used Alcohol Use [...] 02/14/2022 Office Visit Dermatology Ace Hardwick MD [facility] DR JENN[address] CASTELL[address]O-DERMAT [place], [place] [address] (Jewell rothman) 03/08/2022 Appointment Radiology Oscar De Oliveira MD [facility] DR [place], [place] [address] (Wo rk) 03/08/2022 Office Visit Neurosurgery Oscar De Oliveira MD [facility] NEUROSURGERY [place], [place] [address] (Wo rk) 06/23/2022 Office Visit Neurology Annetta Hernandez APRN [facility] [address] Neurology [place], [place] [address] (Wo rk) documented as of this encounter Procedures Procedure Name Priority Date/Time Associated Diagnosis Comme nts CREATININE STAT 11/10/2016 10:59 AM Headache, unspecified Results for this EDT headache type procedure are in the results section. documented in this encounter Results Creatinine (11/10/2016 10:59 AM EDT) athologist Signature Creatinine 1.02 0.80 - 1.50 [facility] mg/dL [facility] Comment: Please note that the pediatric reference intervals supplied above were not validated at [facility]. Results from pediatri c patients should be interpreted in conjunction to the patient's age, height and muscle mass. Estimated GFR >60 >=60 [facility] Comment: This estimated GFR (eGFR) value was calc ulated using the MDRD equation which has been validated on patients between t he ages of 18 and 70. The MDRD should not be used to assess kidney function in patients < 18 years of age or in patients with extremes of body mass, or in patients with acute kidney failure. This value should be multiplied by 1.2 f or patients. For further information please copy and past e the following links into your internet browser. http://Kadoink/DHnkdep http://Kadoink/DHMCnkf Specimen Anatomical Collection Method Collection Time Receive d Time (Source) Location / / Volume Laterality Blood specimen 11/10/2016 10:59 7 (specimen) AM EDT 11:02 AM EDT Resulting Agency Comment Spec In Lab Deanna Morales MD CHEMISTRY ORDERABLES Performing Organization Address City/State/[place] [address] documented in this encounter Visit Diagnoses Diagnosis Headache, unspecified headache type documented in this encounter Care Teams Document Scanner Relationship Specialty Start Date End Date Renee Corcoran APRN PCP - General Family Medicine 02/24/16 04/10/18 documented as of this encounter
--- OUTSIDE RECORDS SUMMARY | 2022-02-07 01:37 | XMS_ITS | Encounter Summary ---
:1955 Author Organization [facility] Address [address] [place] [address] Care Team Providers Name Role Phone RusscherylRenee APRN Primary Care Provider Reason for Visit Reason Onset Date Comments Other 11/21/2016 update on vasquez jaimes Encounter Details Date Type Department Care Team Description 11/21/2016 Telephone Neurology at [facility] Deanna Morales MD Other (update on [facility] can desartan) [place] [address] NEUROLOGY DEPT [phone] [place], [place] [address] (Wo rk) Social History Tobacco [...] documented as of this encounter Miscellaneous Notes Addendum Note - David Cheema RN - 11/24/2016 8:52 AM EDT Addended by: DAVID CHEEMA on: 11/24/2016 08:52 AM Modules accepted: Orders Telephone Encounter - David Cheema RN - 11/24/2016 8:48 AM EDT Called patient and left a message informing him of Dr. Morales's recommendation as noted. I asked that he call back with any questions. If he does not have questions now, he should call in one week. Telephone Encounter - Deanna Morales MD - 11/24/2016 5:29 AM EDT Please make sure that he has discontinue the lisinopril I still see it on his medication list Dose reduce to Candesartan 4mg daily if the 8mg is all that he is taking Please call back with a progress report in 1 weeks Thank you Deanna Morales MD [facility] Neurology Telephone Encounter - David Cheema RN - 11/23/2016 4:53 PM EDT Last Appointment: 10/26/16 Next Appointment: 12/09/16 Reason for Call: Medication Update Patient report: Name of Medication: candesartan 8 mg Is Medication helpful: not yet Side Effects: feeling like h/a is worse, some mild dizziness with change of position & SOB withactivity Any Additional Information to Relay: Patient states for the past couple days be has had a really hard time doing anything around the house If he bends over to pick things up, he gets lightheaded He is getting frustrated with not being able to complete normal tasks He says he gets a little SOB with physical labor He says BP is a little lower than on lisinopril - about 110/60-70. He has had time in the past with other medications but he isn't sure which ones and why He is more aware now because he is keeping really good track to report to us He is not driving because of all the medication changes He is open to continuing the medication & if Dr. Morales wants to increase him, he is willing to trythat as well - Monday will be the 2 week michael (increase to 12 mg then?) Plan/Intervention/Follow Up - Report forwarded to Dr. Morales for review and comment. Pt/caller aware they will be called back with input when available and to call back in the interim if additional questions or change arise before they hear back from this office. Pt/caller agreeable to this plan. Current Medications: Outpatient Prescriptions Marked as Taking for the 11/21/16 encounter (Telephone) with Deanna Morales MD Medication Sig Dispense Refill ??? candesartan (ATACAND) 8 mg Tablet Take 1 tablet by mouth daily. 30 tablet 3 ??? multivitamin (THERAGRAN) Tablet Take 1 tablet by mouth daily. ??? naproxen sodium (ANAPROX DS) 550 mg Tablet Take 1 tablet by mouth 2 times daily as needed (Mild to Moderate Headache). Can be taken with or without Vistaril 60 tablet 12 ??? DILTiazem (CARDIZEM) 30 mg Tablet Take 60 mg by mouth 2 times daily. ??? lisinopril (PRINIVIL;ZESTRIL) 5 mg Tablet Take 5 mg by mouth daily. ??? aspirin 81 mg EC tablet Take 81 mg by mouth daily. ??? ascorbic acid (VITAMIN C WITH NICKO HIPS) 500 mg tablet Telephone Encounter - David Cheema RN - 11/23/2016 4:25 PM EDT Patient called and left a message on the triage line stating he has been taking the 8mg candesartan for about two weeks now. He states his BP has been stable but his headaches are worse and he has beenshort of breath for the past couple days. He knows he is supposed to be increasing the medication for best headache results but doesn't know how that will make him feel. Telephone Encounter - David Cheema RN - 11/21/2016 9:19 AM EDT Patient called and left a message on the triage line stating he has been taking the candesartan for about one week and his blood pressure has remained normal. He states his exertional headache seems worse and he has been laying down at the end of the day with an ice pack. He states he knows he needs to call after two weeks to discuss increasing to 16 mg but wanted to give us an update anyway. documented in this encounter Plan of Treatment Upcoming Encounters Date Type Specialty Care Team Description 02/14/2022 Office Visit Dermatology Ace Hardwick MD [facility] DR JENNIFER CASTELLANO-DERMAT OGY [place] [id number] (Wo rk) 03/08/2022 Appointment Radiology Oscar De Oliveira MD [facility] NEUROSURGERY [place], [place] [address] (Wo rk) 03/08/2022 Office Visit Neurosurgery Oscar De Oliveira MD [facility] NEUROSURGERY [place], [place] [address] (Wo rk) 06/23/2022 Office Visit Neurology Annetta Hernandez APRN [facility] DRIVE Neurology [place], [place] [address] (Wo rk) documented as of this encounter Visit Diagnoses Not on filedocumented in this encounter Care Teams Towel Weaver Relationship Specialty Start Date End Date Renee Corcoran APRN PCP - General Family Medicine 02/24/16 04/10/18 documented as of this encounter
--- OUTSIDE RECORDS SUMMARY | 2022-02-07 01:37 | XMS_ITS | Encounter Summary ---
:1955 [place] [address] Care Team Providers Name Role Phone Danish Cao Primary Care Provider Reason for Visit Reason Comments Skin Check Encounter Details Date Type Department Care Team Description 10/16/2013 Follow-Up Dermatology at [place] Crane MD [place] (actinic keratosis) [facility] (Primary Dx) [address] [place] [address] [facility] [phone] RD-DERMATOLOGY [place] [id number] (Wo rk) Social History Tobacco Use Types Packs/Day Years Used Date Former Smoker Alcohol Use Standard Drinks/Week Comments Yes 2 (1 standard drink = 0.6 oz pure alcoho l) Sex Assigned at Date Recorded Not on file documented as of this encounter Progress Notes Nori Conrad MD - 10/16/2013 8:28 AM EDT DERMATOLOGY [facility] Braulio Garcia : 1955 Physician: Nori Conrad MD Date of service: 10/16/2013 Prior Skin History BCC on left lower leg, right scapula, right clavicular area. AKs Diffuse actinic damage treated with Carac, responded well HPI: Mr. Braulio Garcia is a 57 y.o. male established patient last seen by me on 04/23/2012. Patient presents today for a full skin exam today. Patient reports that he applies sunscreen and wears a hat whenoutdoors. He has been well with no skin concerns today. Reason for visit: Full skin exam Past Medical History: Patient Active Problem List Diagnosis Code ??? Basal cell carcinoma of skin 173.91 Medications: Current Outpatient Prescriptions on File Prior to Visit Medication Sig Dispense Refill ??? aspirin 81 mg EC tablet Take 81 mg by mouth daily. ??? ascorbic acid (VITAMIN C WITH NICKO HIPS) 500 mg tablet ??? [DISCONTINUED] DILTiazem (CARDIZEM CD) 240 mg 24 hr capsule Take 240 mg by mouth daily. ??? [DISCONTINUED] fluoruracil (CARAC) 0.5 % cream Apply topically daily. 30 g 1 ??? [DISCONTINUED] multivitamin (THERAGRAN) tablet Allergies: Allergies Allergen Reactions ??? 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 - Skin: As per HPI; no other skin concerns. Examination - Constitutional: Patient was alert, well-appearing and in no noticeable distress. - Skin: Examination of skin from the waist up was performed. This includes examination of the skin of the face, ears, neck, chest, axillae, left and right upper extremities, hands, back, and abdomen. Specific skin findings: 1. 0.2-0.3cm scaly irregular pink papule(s) located on scalp x 3. Assessment/Plan 1. actinic keratosis. I discussed this condition with the patient, explored therapeutic options. Recommended treating with LN 2. Patient agrees. Procedure Note: Procedure: Destruction of lesion(s) with cryotherapy. Number: 3 Location: as above Discussed procedure and expectations including risks (including risk of hypopigmentation) and benefits. Verbal consent obtained. Frozen with LN2, 15-30 second thaw time, TWICE. There were no complications; the patient tolerated the procedure well. Post-procedure expectations and wound care were reviewed. RTC in 1 year for full skin exam. Instructed to call for questions/concerns. Nori Conrad MD I am documenting this encounter acting as the scribe for and in the presence of Dr. Conrad, BETZY WESLEY LPN Section of Dermatology [facility] documented in this encounter Plan of Treatment Upcoming Encounters Date Type Specialty Care Team Description 02/14/2022 Office Visit Dermatology Ace Hardwick MD [facility] ER DR JENNIFER CASTELLANO-DERMAT OLOGY [place], [place] [address] (Wo rk) 03/08/2022 Appointment Radiology Oscar De Oliveira MD [facility] ER NEUROSURGERY [place], [place] [address] (Wo rk) 03/08/2022 Office Visit Neurosurgery Oscar De Oliveira MD [facility] NEUROSURGERY [place], [place] [address] (Wo rk) 06/23/2022 Office Visit Neurology Annetta Hernandez APRN [facility] ER [address]IVE Neurology [place], [place] [address] (Wo rk) documented as of this encounter Visit Diagnoses Diagnosis AK (actinic keratosis) - Primary Actinic keratosis documented in this encounter Care Teams Drain Cleaner Relationship Specialty Start Date End Date Danish Cao DO PCP - General 06/15/10 02/23/[address] [place] [address] documented as of this encounter
--- OUTSIDE RECORDS SUMMARY | 2022-02-07 01:37 | XMS_ITS | Encounter Summary ---
:1955 Author Organization [facility] [place] [address] Care Team Providers Name Role Phone Unavailable Primary Care Provider Unavailable Encounter Details Date Type Department Care Team Description 01/09/2007 Hospital Encounter Radiology Library at [place] Cor[place] Pain [facility] [employer] [facility] [address] [place] [phone] (Wo rk) Social History Tobacco Use Types Packs/Day Years Used Date Never Assessed Sex Assigned at Date Recorded Not on file documented as of this encounter Plan of Treatment Upcoming Encounters Date Type Specialty Care Team Description 02/14/2022 Office Visit Dermatology Ace Hardwick MD [facility] DR JENNIFER CASTELLANO-DERMAT OLOGY [place], [place] [address] (Wo rk) 03/08/2022 Appointment Radiology Oscar De Oliveira MD [facility] NEUROSURGERY [place], [place] [address] (Wo rk) 03/08/2022 Office Visit Neurosurgery Oscar De Oliveira MD [facility] NEUROSURGERY [place], [place] [address] (Wo rk) 06/23/2022 Office Visit Neurology Annetta Hernandez APRN [facility] [address] Neurology [place], [place] [address] (Wo rk) documented as of this encounter Procedures Procedure Name Priority Date/Time Associated Diagnosis Comme nts FILM LIBRARY Routine 01/09/2007 12:00 AM Pain Results for this STORAGE ONLY CT EDT procedure ar e in HEAD the results section. documented in this encounter Results Film Library- Storage Only CT Head (01/09/2007 12:00 AM EDT) Specimen (Source) Anatomical Location Collection Method / Collectio n Time Received Time / Laterality Volume Narrative RAD - 09/27/2016 10:57 AM EST This exam is for storage only and is aut o-finalizing. Renee Corcoran APRN IMG FILM LIBRARY ORDERABLES Performing Organization Address City/State/ZIP Code Phon e Number RAD [place], [place] documented in this encounter Visit Diagnoses Diagnosis Pain Generalized pain documented in this encounter
--- OUTSIDE RECORDS SUMMARY | 2022-02-07 01:37 | XMS_ITS | Encounter Summary ---
:1955 Author Organization [facility] [place] [address] Care Team Providers Name Role Phone Renee Corcoran APRN Primary Care Provider Reason for Visit Reason Comments Headache High Dollar Medication (Routine) - Specialty Diagnoses / Procedures Referred By Contact Refer red To Contact Neurology Diagnoses Intractable chronic migraine without aura and with status migrainosus Deanna Morales MD [facility] 3c Procedures Auth Request for Medication TC ONABOTULINUMTOXINA, 1 UNIT, INJECTION [facility] [place] [address] [place] [address] Referral ID Status Reason Start Date Expiration Date Visits V isits Requested Authorized [id number] Consult, 11/21/2016 12/05/2017 8 8 Test & Treat Encounter Details Date Type Department Care Team Description 12/09/2016 Procedure visit Neurology at [facility] Deanna Morales, Intractable chronic migraine without aura and with status migrainosus; [facility] MD HANSEN (new daily persistent headache) [facility] [id number] NEUROLOGY DEPT [phone] [place], [place] [address] Social History Tobacco Use Types Packs/Day Years [...] Sign Reading Time Taken Comments Blood Pressure 121/76 12/09/2016 8:06 AM EDT Pulse 79 12/09/2016 8:06 AM EDT Temperature - - Respiratory Rate - - Oxygen Saturation - - Inhaled Oxygen Concentration - - Weight 73 kg (161 lb) 12/09/2016 8:06 AM EDT Height 174.6 cm (5' 8.75) 12/09/2016 8:06 AM EDT Body Mass Index 23.95 12/09/2016 8:06 AM EDT documented in this encounter Patient Instructions Patient InstructionsDeanna Morales MD - 12/09/2016 8:30 AM EDT Office Number: ([facility] - [place]) Clinic nurse number for most issues and prescription refills (Rian) (Karishma) (Nicole) For Prescription Refills: Please call for refills when you have one month left on your medication, we have 48 hours from the time you call to get the medication refill placed. Please call the clinic rather then using my- or e-mail, as the communication is better in real time. Thank you and I look forward to working with you. Book: [employer] (on ebay) Isidoro/ [place]/Betzy (editors) the 5th or 6th edition Keep your Calendar and bring them to your appointment please. Diagnosis: New Daily persistent Headache - migraine without aura phenotype Headache attributed to cavernous angioma STOP: Desvenlafaxine/Khedezla 50mg daily - For Headache Prevention: Depakote XR 250mg twice a day for 2 weeks and then 500mg twice a day - For mild to moderate MCCLELLAND Naproxen sodium 550mg twice a day as needed Vistaril 25 - 50mg twice a day as needed Follow-up with Dr. Morales in 8-10 weeks documented in this encounter Progress Notes Deanna Morales MD - 12/09/2016 8:30 AM EDT Neurology Headache Clinic Follow-up Patient name: Braulio Garcia Date of : 1955 PCP: Renee Corcoran APRN Patient ID: Braulio Garcia is a 61 y.o. right handed male with Atrial fibrillation status post ablation xc 4, cerebral cavernoma, dizziness, hypertension, palpitations with headaches that are most consistent withthe dx of new daily persistent headache. Initial evaluation 10/26/2016: Patient was seen at [facility] by Dr. Le for MCCLELLAND, weakness and convulsions. He was placed on gabapentin and is using magnesium . He was then started on amitriptyline. He is an active person, runs marathons and is very active. 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 He is very clear about the fact [...] better, but not resolved. He went to [facility] for evaluationand management. He [...] he was having. 156/100 BP. At the [facility] ED EKG, CXR, Cervical [...] up to now; also an evaluation in [place] is impending. With that in mind, I [...] but demyelination is a possibility. Neurosurgery 10/11/2016 [facility] MRI scan, and this revealed 2 [...] Range: 0.27 - 4.20 mcIU/mL 2.83 LP OP 17 cm H2O EEG 11/11/2016: This EEG is normal during the awake state as well as during the activation procedures of hyperventilation and photic stimulation. Medications tried: Patient reports that he is very sensitive to medications Gabapentin (SE sedation and feeling spacy) Propranolol Metoprolol Verapamil Diltiazem Amitriptyline (SE vivid dreams - felt like an incredible adventure and then woke up after 10 minutesand was very wide awake - this was a pattern) (SE mood swings) Lisinopril Candesartan Trazodone (SE vivid dreams - felt like an incredible adventure and then woke up after 10 minutes andwas very wide awake - this was a pattern) Prochlorpemazine Magnesium Tylenol Aleve/Naproxen sodium Advil/Ibuprofen ASA Current Medications: Lisinopril 5mg daily Diltiazem 30mg daily Aleve PRN Treatments not tried: Botox Topamax Zonisamide Depakote Keppra Nortriptyline Abran-venlafaxine fumarate Venlafaxine Cyproheptadine/Periactin Candesartan/ Atacand Flexeril Tizanidine/Zanaflex Robaxin Zofran Phenergan Reglan Prednisone Diamox/Acetazolamide Indomethacin PRN/Scheduled Riboflavin Coenzyme q 10 Sumatriptan PO/NS/SQ Treximet Relpax/Eletriptan Zomig/Zolmotriptan NS/PO Maxalt/Rizotriptan Axert/Almotriptan Amerge/Naratriptan Frova/Frovatriptan Migranal/DHE Nasal Carter DHE injections Vistaril/Hydroxizine/Axert Baclofen No h/o renal stones or asthma Other providers: [facility] Cardiology Dr. Velasco Interval Hx: OP 17 CM H2O Candesartan - too low with the medication He has been working on the headache journal Continues to have daily headache 6-7/10 MCCLELLAND intensity and will have exacerbations to 8/10 MCCLELLAND intensity Continues to be int he back of the head then up to the front with a pressure quality to the pain He is now on the Desvenlafaxine/Khedezla 50mg daily Headache is there but I do not care He does not feel like he can drive with the medication He is sitting down and appetite is reduced on the medication He reports that this is what is really happening with the medications He is feeling like a zombie He has been having more photophobia recently Medications: Current Outpatient Prescriptions Medication Sig Dispense Refill ??? ascorbic acid, vitamin C, (VITAMIN C) 500 mg Tablet Take 500 mg by mouth daily. ??? lisinopril (PRINIVIL;ZESTRIL) 5 mg Tablet Take 5 mg by mouth daily. 0 ??? Desvenlafaxine 50 mg Tablet Sustained Release 24 hr Take 1 tablet by mouth daily. 30 [...] No current facility-administered medications for this visit. Allergy: Allergies Allergen Reactions ??? Food Extracts Hives Fresh Fruit patient reported ??? Cephalexin Nausea Only Physical Exam: Vitals: 12/09/16 0806 BP: 121/76 Pulse: 79 Constitutional: Patient of apparent stated age, no acute distress Neuro: MS: Alert, oriented, clear language, no dysarthria, follows commands CN: PERRL, EOMI, no facial asymmetry, tongue is midline Motor: moving all extremities equally Coordination: intact finger to nose Gait: normal base and arm swing Labs: No results found for this or any previous visit (from the past 24 hour(s)). Diagnostic Tests and Imaging: As in HPI Assessment and plan: Braulio Garcia is a 61 y.o. right handed male with Atrial fibrillation status post ablation xc 4, cerebral cavernoma, dizziness, hypertension, palpitations with headaches that are most consistent withthe dx of new daily persistent headache. Patient had normal opening pressure today. We will call with the CSF profile results. I believe thatthis headache is a New daily persistent headache and he is very sensitive to medications. We will discontinue Desvenlafaxine/Khedezla 50mg daily and start Depakote. I wanted to consider the use of Spring TMS devices however he has a loop recorder in place and that is a contraindication. We will then initiate tx with Depakote. # New Daily persistent Headache - migraine without aura phenotype Headache attributed to cavernous angioma - Keep a Headache diary - For Headache Prevention: Depakote XR 250mg twice a day for 2 weeks and then 500mg twice a day - For mild to moderate MCCLELLAND Naproxen sodium 550mg twice a day as needed Vistaril 25 - 50mg twice a day as needed Follow-up with Dr. Morales in 8-10 weeks Deanna Morales MD [facility] Neurology This note was created using DocbookMD speech recognition software. Please pardon any errors. documented in this encounter Procedure Notes Deanna Morales MD - 12/09/2016 8:30 AM EDTAssociated Order(s): LUMBAR PUNCTURE Neurology Procedure Note Date: 12/09/2016 Patient: Braulio Garcia : 1955 Procedure: lumbar puncture (diagnostic) Indications: Chronic daily headache Opening pressure Risk and benefits were explained to the patient and consent was obtained. Time out was preformed Past Medical History: Diagnosis Date ??? Actinic keratosis ??? Atrial fibrillation s/p ablation x 4, continues to have intermittent A fib, has a REVEAL implant monitor ??? Basal cell carcinoma removed ??? Cancer ??? Cerebral cavernoma ??? Dizziness ??? H/O blood clots x2 in the fingers ??? Hypertension ??? Memory disorder since the event on 08/10 worsening short term memory ??? Palpitations ??? Tachycardia Current Outpatient Prescriptions Medication Sig Dispense Refill ??? ascorbic acid, vitamin C, (VITAMIN C) 500 mg Tablet Take 500 mg by mouth daily. ??? lisinopril (PRINIVIL;ZESTRIL) 5 mg Tablet Take 5 mg by mouth daily. 0 ??? Desvenlafaxine 50 mg Tablet Sustained Release 24 hr Take 1 tablet by mouth daily. 30 [...] No current facility-administered medications for this visit. Allergies Allergen Reactions ??? Food Extracts Hives Fresh Fruit patient reported ??? Cephalexin Nausea Only Patient was positioned on him side in a position. The skin was prepped with ChloraPrep (2% chlorhexidine solution/70% isopropyl alcohol) and draped in sterile fashion. 5 cc lidocaine were used tonumb the skin and insertion site. A 22-g 3.5 Sprotte spinal needle was inserted, using an introducer into the space between L4 and L5. One attempt was made. CSF was obtained and the opening pressure was measured with the patient's legs straightened. Opening pressure 17 cm H2O was obtained Clear CSF was obtained and sent for cell count, protein, glucose A total of 11 cc spinal fluid was removed. Patient tolerated the procedure well. There were no immediate complications observed. Patient was advised to avoid strenuous activity x 24 hrs and to advise staff if she developed a headache. Blood Loss <1cc Deanna Morales MD [facility] Neurology The patient was approached by Dr. Deanna Morales about participating in the CSF Biospecimen and Data Bank, a single institution study at [facility] with Drs. Giovanny Mc and Rojas Guzman as lead investigators. After meeting inclusion and exclusion criteria, subjects will provide witnessed informed consent. All questions from the patient regarding this study have been answered. The consent form has [facility]-approval date of 03/06/2015. All study-related procedures were completed after signing the ICF. A copy of the ICF has been provided to the patient. The CSF sample was collected by Dr. Deanna Morales and properly stored and sent to the CSF banking Lab. documented in this encounter Miscellaneous Notes Addendum Note - Estefani Brito - 12/09/2016 9:42 AM EDT Addended by: ESTEFANI BRITO on: 12/09/2016 09:42 AM Modules accepted: Orders documented in this encounter Plan of Treatment Upcoming Encounters Date Type Specialty Care Team Description 02/14/2022 Office Visit Dermatology Ace Hardwick MD [facility] [address] [place], [place] [address] (Wo rk) 03/08/2022 Appointment Radiology Oscar De Oliveira MD [facility] NEUROSURGERY [place], [place] [address] (Wo rk) 03/08/2022 Office Visit Neurosurgery Oscar De Oliveira MD [facility] NEUROSURGERY [place], [place] [address] (Wo rk) 06/23/2022 Office Visit Neurology Annetta Hernandez APRN [facility] Neurology [place], [place] [address] (Wo rk) documented as of this encounter Procedures Procedure Name Priority Date/Time Associated Comments Diagnosis LUMBAR PUNCTURE Routine 12/09/2016 9:35 AM [facility] (new daily Res ults for this EDT persistent procedure are i n headache) the results section. MISCELLANEOUS LAB Routine 12/09/2016 8:50 AM [facility] (new daily R esults for this REQUEST EDT persistent procedure are i n headache) the results section. 4 TOTAL TUBES SENT CSF Routine 12/09/2016 8:50 AM [facility] (new da leanna EDT persistent headache) CSF CELL COUNT Routine 12/09/2016 8:50 AM [facility] (new daily Resu lts for this EDT persistent procedure are i n headache) the results section. CSF DESC 4 Routine 12/09/2016 8:50 AM [facility] (new daily Result s for this EDT persistent procedure are i n headache) the results section. CSF DESC 3 Routine 12/09/2016 8:50 AM [facility] (new daily Result s for this EDT persistent procedure are i n headache) the results section. CSF DESC 2 Routine 12/09/2016 8:50 AM [facility] (new daily Result s for this EDT persistent procedure are i n headache) the results section. CSF DESC 1 Routine 12/09/2016 8:50 AM [facility] (new daily Result s for this EDT persistent procedure are i n headache) the results section. PROTEIN LEVEL CSF Routine 12/09/2016 8:50 AM [facility] (new daily R esults for this EDT persistent procedure are i n headache) the results section. GLUCOSE LEVEL CSF Routine 12/09/2016 8:50 AM [facility] (new daily R esults for this EDT persistent procedure are i n headache) the results section. documented in this encounter Results Lumbar Puncture (12/09/2016 9:35 AM EDT) Narrative Deanna Morales MD - 12/09/2016 9:35 AM EDT Deanna Morales MD ? 12/09/2016 ??9:35 AM Neurology Procedure Note Date: 12/09/2016 Patient: Braulio Garcia : ??1955 Procedure: lumbar puncture (diagnostic) Indications: Chronic daily headache ??Opening pressure Risk and benefits were explained to the patient and consent was obtained. Time out was preformed Past Medical History: Diagnosis Date ? ? Actinic keratosis ? Atrial fibrillation ?? s/p ablation x 4, continues to have int ermittent A fib, has a REVEAL implant monitor ? ? Basal cell carcinoma ?? removed ? Cancer ? Cerebral cavernoma ? Dizziness ? H/O blood clots ?? x2 in the fingers ? Hypertension ? Memory disorder ?? since the event on 08/10 worsening short term memory ? ? Palpitations ? Tachycardia ?? Current Outpatient Prescriptions Medication Sig Dispense Refill ? ? ascorbic acid, vitamin C, (VITAMIN C) 500 mg Tablet Take 500 mg by mouth daily. ? lisinopril (PRINIVIL;ZESTRIL) 5 mg Tablet Take 5 mg by mouth daily. ??0 ? ? Desvenlafaxine 50 mg Tablet Sustained Release 24 hr Take 1 tablet by mouth daily. 30 tablet 3 ? ? multivitamin (THERAGRAN) Tablet Take 1 tablet by mouth daily. ? naproxen sodium (ANAPROX DS) 550 mg Tablet Take 1 tablet by mouth 2 times daily as needed (Mild to M oderate Headache). Can be taken with or without Vistaril 60 tablet 12 ? ? DILTiazem (CARDIZEM) 30 mg Tablet Take 60 mg by mouth 2 times daily. ? aspirin 81 mg EC tablet Take 81 mg by mouth daily. ?? No current facility-administered medicat ions for this visit. ?? Allergies Allergen Reactions ? ? Food Extracts Hives ??Fresh Fruit patient reported ? ? Cephalexin Nausea Only Patient was positioned on him side in a position. ??The skin was prepped with ChloraPrep (2% chlorhex idine solution/70% isopropyl alcohol) and draped in sterile fashion. ??5 cc lidocaine were used to numb the skin and insertion site. ??A 22-g 3.5 Sprotte spinal needle was inserted, usin g an introducer into the space between L4 and L5. ??One attempt w as made. CSF was obtained and the opening pressure was measured wi th the patient's legs straightened. Opening pressure 17 cm H2O was obtained Clear CSF was obtained and sent for cell count, protein, glucose A total of 11 cc spinal fluid was remove d. ??Patient tolerated the procedure well. ??There were no immediat e complications observed. ?? Patient was advised to avoid strenuous a ctivity x 24 hrs and to advise staff if she developed a headache . Blood Loss <1cc Deanna Morales MD [facility] Neurology The patient was approached by Dr. Darius Morales about participating in the CSF Biospecimen and Data Bank, a single institution study at [facility] with Drs. Giovanny Mc and Abbey Guzman as lead investigators. After meeting inclusion and exclusion cr iteria, subjects will provide witnessed informed consent. All questions from the patient regarding this study have been a nswered. The consent form has [facility]-approval date of 03/06/2015. ?? All study-related procedures were comple maria guadalupe after signing the ICF. A copy of the ICF has been provided to the patient. The CSF sample was collected by Dr. Maritza Morales and properly stored and sent to the CSF banking Lab. Deanna Morales MD PROCEDURE/MINOR SURGICAL ORD ERABLES CSF Cell Count (12/09/2016 8:50 AM EDT) P athologist Signature Tube # Ct CSF [address] [facility] Nucleated CSF 1 0 - 5 /mcl [facility] Comment: If Nucleated CSF CT result equals Zero, no smear is made and no Differential is performed. If Nucleated CSF CT result is 1-5 / mcL, a smear is made and scanned but no results are reported unless abnormalitie s are noted. If Nucleated CSF CT result is 6 /mcL or greater, a smear is made and manual differential is performed and reported. Nucleated CSF CT results on a CSF fluid must be correlated with clinical condition. RBC CSF CT 0 /mcl [facility] Neutrophil CSF See Comment [facility] Comment: Less than 6 nucleated cells counted, dif ferential not performed per procedural guidelines. ??Smear scan performed. Specimen (Source) Anatomical Collection Method Collection Time Re ceived Time Location / / Volume Laterality Cerebrospinal fluid 12/09/2016 8:50 12/09 sample (specimen) AM EDT 9:44 AM ED T Resulting Agency Comment Spec In Lab Deanna Morales MD BODY FLUIDS AND STOOLS ORDER LEONARDA Performing Organization Address City/State/[place] [address] CSF DESC 4 (12/09/2016 8:50 AM EDT) Patholo gist Method Time Signature Tube Num CSF 4 [facility] #4 [facility] Color CSF #[address] [facility] Appear CSF #[address] [facility] Tot Vol CSF #[address] [facility] Specimen (Source) Anatomical Collection Method Collection Time Re ceived Time Location / / Volume Laterality Cerebrospinal fluid 12/09/2016 8:50 12/09 sample (specimen) AM EDT 9:44 AM ED T Resulting Agency Comment Spec In Lab Deanna Morales MD BODY FLUIDS AND STOOLS ORDER LEONARDA Performing Organization Address City/[facility]/ZIP Code Phon e Number [address] CSF DESC 3 (12/09/2016 8:50 AM EDT) Patholo gist Method Time Signature Tube Num CSF 3 [facility] Color CSF #[address] [facility] Appear CSF #[address] [facility] Tot Vol CSF #[address] [facility] Specimen (Source) Anatomical Collection Method Collection Time Re ceived Time Location / / Volume Laterality Cerebrospinal fluid 12/09/2016 8:50 12/09 sample (specimen) AM EDT 9:44 AM ED T Resulting Agency Comment Spec In Lab Deanna Morales MD BODY FLUIDS AND STOOLS ORDER LEONARDA Performing Organization Address City/[facility]/ZIP Code Phon e Number [address] CSF DESC 2 (12/09/2016 8:50 AM EDT) Patholo gist Method Time Signature Tube Num CSF 2 [facility] Color CSF #[address] [facility] Appear CSF #[address] [facility] Tot Vol CSF #[address] [facility] Specimen (Source) Anatomical Collection Method Collection Time Re ceived Time Location / / Volume Laterality Cerebrospinal fluid 12/09/2016 8:50 12/09 sample (specimen) AM EDT 9:44 AM ED T Resulting Agency Comment Spec In Lab Deanna Morales MD BODY FLUIDS AND STOOLS ORDER LEONARDA Performing Organization Address City/[facility]/ZIP Code Phon e Number [address] CSF DESC 1 (12/09/2016 8:50 AM EDT) Patholo gist Method Time Signature Tube Num CSF 1 [facility] #1 [facility] Color CSF #[address] [facility] Appear CSF #[address] [facility] Tot Vol CSF #[address] [facility] Specimen (Source) Anatomical Collection Method Collection Time Re ceived Time Location / / Volume Laterality Cerebrospinal fluid 12/09/2016 8:50 12/09 sample (specimen) AM EDT 9:44 AM ED T Resulting Agency Comment Spec In Lab Deanna Morales MD BODY FLUIDS AND STOOLS ORDER LEONARDA Performing Organization Address City/[facility]/ZIP Code Phon e Number [address] Miscellaneous Lab request (12/09/2016 8:50 AM EDT) Patholo gist Method Time Signature Misc Lab Request [facility] Result received in [facility]ORATORY Specimen (Source) Anatomical Collection Method Collection Time Re ceived Time Location / / Volume Laterality Cerebrospinal fluid 12/09/2016 8:50 12/09 sample (specimen) AM EDT 9:44 AM ED T Resulting Agency Comment Spec In Lab Deanna Morales MD HEMATOLOGY ORDERABLES Performing Organization Address City/[facility]/[place]IP [place] [address] Protein Level CSF (12/09/2016 8:50 AM EDT) P athologist Signature T Protein, CSF 35 15 - 45 [facility] mg/dL [facility] Xanthochromia Neg [facility] Specimen (Source) Anatomical Collection Method Collection Time Re ceived Time Location / / Volume Laterality Cerebrospinal fluid 12/09/2016 8:50 12/09 sample (specimen) AM EDT 9:44 AM ED T Resulting Agency Comment Spec In Lab Deanna Morales MD BODY FLUIDS AND STOOLS ORDER LEONARDA Performing Organization Address City/[facility]/[place]IP [place] [address] Glucose Level CSF (12/09/2016 8:50 AM EDT) P athologist Signature Glucose, CSF 59 mg/dL [facility] Comment: CSF at equilibrium equals appro ximately 60-80% of plasma glucose. Specimen (Source) Anatomical Collection Method Collection Time Re ceived Time Location / / Volume Laterality Cerebrospinal fluid 12/09/2016 8:50 12/09 sample (specimen) AM EDT 9:44 AM ED T Resulting Agency Comment Spec In Lab Deanna Morales MD BODY FLUIDS AND STOOLS ORDER LEONARDA Performing Organization Address City/State/[place] [address] documented in this encounter Visit Diagnoses Diagnosis Intractable chronic migraine without aur a and with status migrainosus Chronic migraine without aura, with intr actable migraine, so stated, with status migrainosus NDPH (new daily persistent headache) New daily persistent headache documented in this encounter Care Teams Head Of Merchandise Buying Relationship Specialty Start Date End Date Renee Corcoran APRN PCP - General Family Medicine 02/24/16 04/10/18 documented as of this encounter
--- OUTSIDE RECORDS SUMMARY | 2022-02-07 01:37 | XMS_ITS | Encounter Summary ---
:1955 Author Organization [facility] [place] [address] Care Team Providers Name Role Phone Danish Cao DO Primary Care Provider Encounter Details Date Type Department Care Team Description 09/16/2013 Hospital Encounter Radiology Library at [facility] [address] [place] [phone] (Wo rk) Social History Tobacco Use Types Packs/Day Years Used Date Former Smoker Alcohol Use Standard Drinks/Week Comments Yes 2 (1 standard drink = 0.6 oz pure alcoho l) Sex Assigned at Date Recorded Not on file documented as of this encounter Medications at Time of Discharge Medication Sig Dispensed Refills Start Date End Date DILTiazem (CARDIZEM CD) Take 240 mg by mouth 0 10/16/2013 240 mg 24 hr capsule daily. aspirin 81 mg EC tablet Take 81 mg by mouth 0 02/11/2020 daily. fluoruracil (CARAC) 0.5 Apply topically 30 g 1 012 10/16/2013 % creamIndications: daily. Actinic skin damage multivitamin (THERAGRAN) 0 10/20/2009 10/16/2013 tablet documented as of this encounter Plan of Treatment Upcoming Encounters Date Type Specialty Care Team Description 02/14/2022 Office Visit Dermatology Ace Hardwick MD [facility] [address]-DERMAT OLOGY [place], [place] [address] (Wo rk) 03/08/2022 Appointment Radiology Oscar De Oliveira MD [facility] NEUROSURGERY [place], [place] [address] (Wo rk) 03/08/2022 Office Visit Neurosurgery Oscar De Oliveira MD [facility] NEUROSURGERY [place], [place] [address] (Wo rk) 06/23/2022 Office Visit Neurology Annetta Hernandez APRN [facility] [address] Neurology [place], [place] [address] (Wo rk) documented as of this encounter Procedures Procedure Name Priority Date/Time Associated Diagnosis Comme nts FILM LIBRARY Routine 09/16/2013 12:00 AM Pain Results for this STORAGE ONLY CT EST procedure ar e in HEAD the results section. documented in this encounter Results Film Library- Storage Only CT Head (09/16/2013 12:00 AM EST) Specimen (Source) Anatomical Location Collection Method / Collectio n Time Received Time / Laterality Volume Narrative [facility] - 09/27/2016 10:52 AM EST This exam is for storage only and is aut o-finalizing. Renee Corcoran APRN IMG FILM LIBRARY ORDERABLES Performing Organization Address City/State/ZIP Code Phon e Number [place], [place] documented in this encounter Visit Diagnoses Diagnosis Pain Generalized pain documented in this encounter Care Teams Business System Manager Relationship Specialty Start Date End Date Danish Cao DO PCP - General 06/15/10 02/23/[address] [place] [address] documented as of this encounter
--- OUTSIDE RECORDS SUMMARY | 2022-02-07 01:37 | XMS_ITS | Encounter Summary ---
:1955 Author Organization [facility] [place] [address] Care Team Providers Name Role Phone NashDanish Primary Care Provider Reason for Visit Reason Comments Skin Check Encounter Details Date Type Department Care Team Description 04/23/2012 Follow-Up Dermatology Nori Conrad MD Actinic skin damage (Primary Dx); [facility]; [place] Personal history of other malignant neop lasm of skin [address] [phone] RD-DERMATOLOGY [place] [address] (Wo rk) Social History Tobacco Use Types Packs/Day Years Used Date Former Smoker Alcohol Use Standard Drinks/Week Comments Yes 2 (1 standard drink = 0.6 oz pure alcoho l) Sex Assigned at Date Recorded Not on file documented as of this encounter Progress Notes Nori Conrad MD - 04/23/2012 8:08 AM EDT DERMATOLOGY ESTABLISHED PATIENT CLINIC NOTE Date of service: 04/23/2012 Braulio Garcia : 1955 Provider: Nori Conrad MD SKIN HISTORY: H/O of BCC on left lower leg, right scapula, right clavicular area. H/O AKs HPI Braulio Garcia is a 56 y.o. 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 This is an established patient, last seen by Gonsalo Davis MD on 01/25/11. He did efudex about 5 years ago all on face, scalp, arms. He notes the area on the vertex scalp has been tender. He does try and practice sun protective measures. MEDICAL HISTORY: Past Medical History Diagnosis Date ??? Actinic keratosis ??? Basal cell carcinoma ADR: Allergies Allergen Reactions ??? Food Extracts Hives Fresh Fruit patient reported MEDS: Current outpatient prescriptions ordered prior to encounter Medication Sig Dispense Refill ??? multivitamin (THERAGRAN) tablet ??? ascorbic acid (VITAMIN C WITH NICKO HIPS) 500 mg tablet ??? DISCONTD: warfarin (COUMADIN) 1 mg tablet Take 4 mg by mouth daily. ??? DISCONTD: fluorouracil (EFUDEX) 5 % cream apply as directed, Top, Twice daily for 3 weeks SOCIAL HISTORY: ROS General: feeling well Skin: denies other skin complaints EXAM General: NAD, pleasant, cooperative Constitutional: Patient was alert, well-appearing and in no noticeable distress. Skin: A full skin exam was performed. This includes examination of the skin of the head, neck, face and scalp including behind ears. The chest, abdomen, back, and axillae, as well as the arms, hands, palms, fingers, legs, feet, toes and soles were also examined. Buttocks and breasts were also examinedwith the patients consent. Genitalia were not examined. Significant skin findings: 1. Ecchymotic areas on on right forearm 2. Scaly irregular pink papules on forehead and vertex of scalp. ASSESSMENT/PLAN: 1.Purpura 2.Actinic keratosis,Carac prescribed 0.5% cream given to patient, Apply topically daily for 3 weeks to vertex of scalp and forehead. . Reviewed detail expectations and typical reaction to treatment. Redness, crusting, swelling and tenderness of treated skin expected to develop during treatment, and carlos sign that the medication is working. Warned not to get in eyes. Discussed using medication as tolerated and stopping use for a day or two if inflammation becomes too intense or patient experiences discomfort. For any severe discomfort or side effects, patient was encouraged to call for further advice and possible evaluation. Discussed importance of sun protection, advised to wear sunscreen and hat. RTC in one year. Note initiated by: JUVENTINO MOHR, RN Routed to physician for review and changes: Nori Conrad MD Section of Dermatology [facility] documented in this encounter Plan of Treatment Upcoming Encounters Date Type Specialty Care Team Description 02/14/2022 Office Visit Dermatology Ace Hardwick MD [facility] ER DR JENNIFER CASTELLANO-DERMAT OLOGY [place], [place] [address] (Wo rk) 03/08/2022 Appointment Radiology Oscar De Oliveira MD [facility] ER NEUROSURGERY [place], [place] [address] (Wo rk) 03/08/2022 Office Visit Neurosurgery Oscar De Oliveira MD [facility] NEUROSURGERY [place], [place] [address] (Wo rk) 06/23/2022 Office Visit Neurology Annetta Hernandez APRN [facility] [address] Neurology [place], [place] [address] (Wo rk) documented as of this encounter Visit Diagnoses Diagnosis Actinic skin damage - Primary 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
--- OUTSIDE RECORDS SUMMARY | 2022-02-07 01:37 | XMS_ITS | Encounter Summary ---
:1955 Author Organization [facility] [place] [address] Care Team Providers Name Role Phone RusscherylRenee APRN Primary Care Provider Reason for Visit Reason Onset Date Comments Headache 02/06/2017 Encounter Details Date Type Department Care Team Description 02/06/2017 Telephone Neurology at [facility] Deanna Morales MD [facility] [place] [address] NEUROLOGY DEPT [phone] [place], [place] [address] (Wo rk) Social History Tobacco [...] encounter Miscellaneous Notes Telephone Encounter - Deanna Morales MD - 02/07/2017 4:13 PM EDT That would be fine Deanna Morales MD [facility] Neurology Telephone Encounter - Nicole Black RN - 02/07/2017 9:05 AM EDT Acute Headache/Migraine Last Appointment: 01/18/17 Next Appointment: 02/20/17 Provider: Dr. Morales Reason for Call: Acute Migraine/Headache REPORT ON CURRENT CONCERN - (for any positive response note explanation): ??? When did migraine start: last two days really bad ??? Location of the pain: top of head ??? Description of the pain: constant terrible pain - feels like cutting off the top of his head would hurt less ??? Pain on scale of 1-10: 9/10 Is this a typical migraine: yes just really bad ??? What rescue meds have been tried: naproxen Results: ineffective ??? Any aggravating factors: movement - occipital nerve tenderness ??? Any other alleviating factors: none Any additional information to relay: Patient states he has had a severe headache for the past two days and nights. He has tried his naproxen throughout these two days with no effect. He has not used his hydroxyzine because it takes him out of commission for at least two days after taking it. We discussed trying an ONB or SPG block and because his occipital nerve region is tender, the ONB is likely the better choice. Offered appointment for today but he cannot come in today as his just returned to work after a personal leave. He states he could come in first-thing in the am, like at 8:30 and get her to work on time afterwards. He will call his to see what day will work best for her and will call back to schedule. Plan/Intervention/Follow Up - Report forwarded to Dr. Morales as FYI. Patient called back and tomorrow is tricky for him but he could come at 8:45 for ONB. Current Medications: Outpatient Prescriptions Marked as Taking for the 02/06/17 encounter (Telephone) with Deanna Morales MD Medication Sig Dispense Refill ??? OnabotulinumtoxinA (BOTOX) 200 unit Recon Soln Inject 155 Units as directed Every 12 weeks. Indications: Migraine Prevention ??? ascorbic acid, vitamin C, (VITAMIN C) 500 mg Tablet Take 500 mg by mouth daily. ??? lisinopril (PRINIVIL;ZESTRIL) 5 mg Tablet Take 5 mg by mouth daily. 0 ??? multivitamin (THERAGRAN) Tablet Take [...] tablet Take 81 mg by mouth daily. Telephone Encounter - Nicole Black RN - 02/06/2017 5:31 PM EDT Patient called and left a message on the nurse triage line stating he has had a headache daily sincehis botox appointment. He states most days the headache has gotten to a 7/10 but today it is a 9/10.He took his naproxen but hasn't taken the hydroxyzine because it makes him groggy for a few days. documented in this encounter Plan of Treatment Upcoming Encounters Date Type Specialty Care Team Description 02/14/2022 Office Visit Dermatology Ace Hardwick MD [facility] DR JENNIF[address] CASTELLANO-DERMAT OLOGY [place], [place] [address] (Wo rk) 03/08/2022 Appointment Radiology Oscar De Oliveira MD [facility] NEUROSURGERY [place], [place] [address] (Wo rk) 03/08/2022 Office Visit Neurosurgery Oscar De Oliveira MD [facility] NEUROSURGERY [place], [place] [address] (Wo rk) 06/23/2022 Office Visit Neurology Annetta Hernandez APRN [facility] Neurology [place], [place] [address] (Wo rk) documented as of this encounter Visit Diagnoses Not on filedocumented in this encounter Care Teams Public Health Dentist Relationship Specialty Start Date End Date Renee Corcoran APRN PCP - General Family Medicine 02/24/16 04/10/18 documented as of this encounter
--- OUTSIDE RECORDS SUMMARY | 2022-02-07 01:37 | XMS_ITS | Encounter Summary ---
:1955 Author Organization [facility] [place] [address] Care Team Providers Name Role Phone NashDanish Primary Care Provider Encounter Details Date Type Department Care Team Description 01/21/2011 Abstract Dermatology [place] [address] Social History Tobacco Use Types Packs/Day Years Used Date Never Assessed Sex Assigned at Date Recorded Not on file documented as of this encounter Plan of Treatment Upcoming Encounters Date Type Specialty Care Team Description 02/14/2022 Office Visit Dermatology Ace Hardwick MD [facility] DR JENNIFER CASTELLANO-DERMAT [place], [place] [address] (Wo rk) 03/08/2022 Appointment Radiology Oscar De Oliveira MD [facility] DR [place], [place] [address] (Wo rk) 03/08/2022 Office Visit Neurosurgery Oscar De Oliveira MD [facility] NEUROSURGERY [place], [place] [address] (Wo rk) 06/23/2022 Office Visit Neurology Annetta Hernandez APRN [facility] Neurology [place], [place] [address] (Wo rk) documented as of this encounter Visit Diagnoses Not on filedocumented in this encounter Care Teams Director Of Learning Relationship Specialty Start Date End Date Danish Cao DO PCP - General 06/15/10 02/23/[address] [place] [address] documented as of this encounter
--- OUTSIDE RECORDS SUMMARY | 2022-02-07 01:37 | XMS_ITS | Encounter Summary ---
:1955 Author Organization [facility] [place] [address] Care Team Providers Name Role Phone RusscherylRenee APRN Primary Care Provider Reason for Visit Reason Comments Botox Injection High Dollar Medication (Routine) - Specialty Diagnoses / Procedures Referred By Contact Refer red To Contact Neurology Diagnoses Intractable chronic migraine without aura and with status migrainosus Deanna Morales MD [facility] [place] 3c Procedures Auth Request for Medication TC ONABOTULINUMTOXINA, 1 UNIT, INJECTION [facility] [place] [address] [place] [address] Referral ID Status Reason Start Date Expiration Date Visits V isits Requested Authorized [id number] Consult, 11/21/2016 12/05/2017 8 8 Test & Treat Encounter Details Date Type Department Care Team Description 01/18/2017 Office Visit Neurology at [facility] Deanna Morales MD ND (new daily persistent headache); [facility] Int ractable chronic migraine without aura and with status migrainosus Drive [place] NEUROLOG[place] [address] [place] [address] [phone] Social History Tobacco Use Types Packs/Day Years [...] Sign Reading Time Taken Comments Blood Pressure 135/93 01/18/2017 12:32 PM EDT Pulse 71 01/18/2017 12:32 PM EDT Temperature - - Respiratory Rate - - Oxygen Saturation - - Inhaled Oxygen Concentration - - Weight - - Height - - Body Mass Index - - documented in this encounter Procedure Notes Deanna Morales MD - 01/18/2017 3:30 PM EDTAssociated Order(s): CHEMODENERVATION, MEDICAL Neurology Procedure note Date: 01/18/2017 Patient: Braulio Garcia : 1955 Procedure: Botox injections (PREEMPT protocol) - q 12 weeks Indications: NDHP Chronic Migraine with and without aura Date Procedure MIDAS 01/18/2017 Botox # 1 156, 90/90 MCCLELLAND days, 7/10 MCCLELLAND intensity Risk and benefits were explained to the patient. Written consent was obtained - 01/18/2017 Time out was preformed OnabotulinumtoxinA was reconstituted [...] units divided between 2 sites in the aging department supervisor muscles, 5 units into 1 site in the procerus muscle, 40 units divided between 8 sites in the temporalis muscles, 30 units divided between 6 sites in the suboccipital region, 20 units divided between 4 sites in the cervical paraspinal musculature, and 30 units divided between 6 sites in the trapezii. Total units used= 155. Total injection sites=31. Patient was injected with 155 units and 45 units were wasted/disgarded The patient tolerated the procedure without any immediate complications. Deanna Morales MD [facility] Neurology Migraine Disability Assessment # of days in the past 3 months 1. Missed work / school because of MCCLELLAND 66 2. Productivity at work / school reduced by > half because of MCCLELLAND (do not count days from Q.1) 0 3. Did not do housework because of MCCLELLAND 90 4. Productivity in household work reduced by > half because of MCCLELLAND (do not count days from Q.3) 0 5. Missed family / social / leisure activities because of MCCLELLAND 90 Total 156 MIDAS grade (use total of Q1 to [...] 02/14/2022 Office Visit Dermatology Ace Hardwick MD [facility] DR JENNIFER CASTELLANO-DERMAT [place] [phone] (Wo rk) 03/08/2022 Appointment Radiology Oscar De Oliveira MD [facility] NEUROSURGERY [place], [place] [address] (Wo rk) 03/08/2022 Office Visit Neurosurgery Oscar De Oliveira MD [facility] NEUROSURGERY [place], [place] 7 (Wo rk) 06/23/2022 Office Visit Neurology Annetta Hernandez APRN [facility] Neurology [place], [place] [address] (Wo rk) documented as of this encounter Procedures Procedure Name Priority Date/Time Associated Diagnosis Comme nts CHEMODENERVATION, Routine 01/18/2017 1:20 PM Resu lts for this MEDICAL EDT procedure are i n the results section. documented in this encounter Results Chemodenervation, medical (01/18/2017 1:20 PM EDT) Narrative Deanna Morales MD - 01/18/2017 1:20 PM EDT Deanna Morales MD ? 01/18/2017 ??1:20 PM Neurology Procedure note Date: 01/18/2017 Patient: Braulio Garcia : ??1955 Procedure: Botox injections (PREEMPT pro tocol) - q 12 weeks Indications: NDHP ??Chronic Migraine with and without aur a Date ??Procedure ?? MIDAS 01/18/2017 ??Botox # 1 ?? 156, 90/90 MCCLELLAND d ays, 7/10 MCCLELLAND intensity Risk and benefits were explained to the patient. Written consent was obtained - 01/18/2017 Time out was preformed OnabotulinumtoxinA was reconstituted [...] units divided between 2 sites in the aging department supervisor muscles, 5 uni ts into 1 site in the procerus muscle, 40 units divided betwee n 8 sites in the temporalis muscles, 30 units divided bet ween 6 sites in the suboccipital region, 20 units divided be tween 4 sites in the cervical paraspinal musculature, and 30 units divided between 6 sites in the trapezii. Total units used= 155. Total injection sites=31. Patient was injected with 155 units and 45 units were wasted/disgarded The patient tolerated the procedure with out any immediate complications. Deanna Morales MD [facility] Neurology Migraine Disability Assessment # of days in the past 3 months 1. Missed work / school because of MCCLELLAND 66 2. Productivity at work / school reduced by > half because of MCCLELLAND (do not count days from Q.1) 0 3. Did not do housework because of MCCLELLAND 90 4. Productivity in household work reduce d by > half because of MCCLELLAND (do not count days from Q.3) 0 5. Missed family / social / leisure acti vities because of MCCLELLAND 90 Total 156 MIDAS grade (use total of Q1 to [...] Site botulinum toxin type A (BOTOX) Given 01/18/2017 1:19 PM EDT 155 Units injection 200 Units 200 Units, Intramuscular, ONCE, 1 dose, On Mon01/18/17 at 1330, Routine documented in this encounter Care Teams Wool Presser Relationship Specialty Start Date End Date Renee Corcoran APRN PCP - General Family Medicine 02/24/16 04/10/18 documented as of this encounter
--- OUTSIDE RECORDS SUMMARY | 2022-02-07 01:37 | XMS_ITS | Encounter Summary ---
:1955 Author Organization [facility] [place] [address] Care Team Providers Name Role Phone Renee Corcoran APRN Primary Care Provider Reason for Visit Reason Onset Date Comments Other 11/10/2016 medication not worki ng Encounter Details Date Type Department Care Team Description 11/10/2016 Telephone Neurology at [facility] Deanna Morales MD Other (medication not [facility]) [place] [address] NEUROLOGY DEPT [phone] [place], [place] [address] (Wo rk) Social History Tobacco [...] Telephone Encounter - Nicole Black RN - 11/14/2016 10:40 AM EDT Called patient and informed him of Dr. Morales's recommendation as noted. Patient understands instructions and agrees with this plan. He would like the Rx sent to [facility]. He further elaborated on the keppra and states he was thinking about driving his car into oncoming traffic while driving yesterday and has not thought like this before. He immediately stopped the medication and feels better today. Telephone Encounter - Nicole Black RN - 11/14/2016 10:17 AM EDT Called patient and left a message asking for a return phone call. I let him know he can ask the medical records secretary to page me as we have had several back and forth e- mails and have not been able to connect. Telephone Encounter - Deanna Morales MD - 11/11/2016 2:13 PM EDT Called the office back 11/11/2016 @214pm Dr. Gonzalez Covering provider No problem with the conversion from Lisinopril Have the patient start Candesartan 8mg daily in place of Lisinopril 5mg daily Candesartan 8mg daily diap # 30 Refills # 3 plan to call back in 2 weeks with BP readings Deanna Morales MD [facility] Neurology Telephone Encounter - Nicole Black RN - 11/11/2016 11:29 AM EDT Left message for patient that Dr. Morales is working on contacting his prime broker to change his prevention medications as the abortives are not working well. I let him know that I would call him as soon as Dr. Morales has been able to speak with his prime broker and there are recommendations. I let him knowthat the recommendations are to continue the current regimen for now. Telephone Encounter - Deanna Morales MD - 11/11/2016 8:25 AM EDT Sounds like we need to work on the prevention angle more I have called Cardiology 11/11/2016 828am, got the answering service Will call back in a few minutes when the office opens at 830am Called back at 8:40am: Provider is out on vacation There are no providers in the office There will be no provider in the office till afternoon I have asked them to page me at the hospital when they get in I would like to discuss with Cardiology the conversion of Lisinopril to Candesartan [facility] Cardiology Dr. Velasco Deanna Morales MD [facility] Neurology Telephone Encounter - Nicole Black RN - 11/10/2016 3:42 PM EDT Patient called and states he has been taking the Keppra for six days now and it has not helped his headaches at all. He says he also thinks it is making him irritable. He wonders if Dr. Morales has anothersuggestion. He has already tried - hydroxyzine, baclofen, keppra Outpatient Prescriptions Marked as Taking for the 11/10/16 encounter (Telephone) with Deanna Morales MD Medication Sig Dispense Refill ??? levETIRAcetam (KEPPRA) 500 mg Tablet Take 1 tablet by mouth 2 times daily as needed. 30 tablet 0 ??? multivitamin (THERAGRAN) Tablet Take 1 [...] C WITH NICKO HIPS) 500 mg tablet documented in this encounter Plan of Treatment Upcoming Encounters Date Type Specialty Care Team Description 02/14/2022 Office Visit Dermatology Ace Hardwick MD [facility] ER DR JENNIFER CASTELLANO-DERMAT OLOGY [place], [place] [address] (Wo rk) 03/08/2022 Appointment Radiology Oscar De Oliveira MD [facility] ER NEUROSURGERY [place], [place] [address] (Wo rk) 03/08/2022 Office Visit Neurosurgery Oscar De Oliveira MD [facility] ER NEUROSURGERY [place], [place] [address] (Wo rk) 06/23/2022 Office Visit Neurology Annetta Hernandez APRN [facility] ER DRIVE Neurology [place], [place] [address] (Wo rk) documented as of this encounter Visit Diagnoses Not on filedocumented in this encounter Care Teams Partnership Marketing Manager Relationship Specialty Start Date End Date Renee Corcoran APRN PCP - General Family Medicine 02/24/16 04/10/18 documented as of this encounter
--- OUTSIDE RECORDS SUMMARY | 2022-02-07 01:37 | XMS_ITS | Encounter Summary ---
:1955 Author Organization [facility] [place] [address] Care Team Providers Name Role Phone Renee Corcoran RESIDENTIAL PROGRAM MANAGER Primary Care Provider Encounter Details Date Type Department Care Team Description 08/19/2016 Hospital Encounter Radiology Library at [place] Corcoran Pain [facility] RESIDENTIAL PROGRAM MANAGER [facility] [address] [place] [phone] (Jewell rothman) Social History Tobacco Use Types [...] Hardwick MD [facility] DR JENNIFER CASTELLANO-DERMAT [place], [place] [address] (Wo rk) 03/08/2022 Appointment Radiology Oscar De Oliveira MD [facility] [address] GAXIOLA [place], [place] [address] (Wo rk) 03/08/2022 Office Visit Neurosurgery Oscar De Oliveira MD [facility] NEUROSURGERY [place], [place] [address] (Wo rk) 06/23/2022 Office Visit Neurology Annetta Hernandez APRN [facility] ER [facility] Neurology [place], [place] [address] (Wo rk) documented as of this encounter Procedures Procedure Name Priority Date/Time Associated Diagnosis Comme nts FILM LIBRARY Routine 08/19/2016 12:00 AM Pain Results for this STORAGE ONLY CT EST procedure ar e in HEAD the results section. documented in this encounter Results Film Library- Storage Only CT Head (08/19/2016 12:00 AM EST) Specimen (Source) Anatomical Location Collection Method / Collectio n Time Received Time / Laterality Volume Narrative AYANA MORELAND - 09/27/2016 10:54 AM EST This exam is for storage only and is aut o-finalizing. Renee Corcoran APRN IMKaylynn FILM LIBRARY ORDERABLES Performing Organization Address City/State/ZIP Code Phon e Number [place], [place] documented in this encounter Visit Diagnoses Diagnosis Pain Generalized pain documented in this encounter Care Teams Diesel Mechanic Construction Relationship Specialty Start Date End Date Renee Corcoran APRN PCP - General Family Medicine 02/24/16 04/10/18 documented as of this encounter
--- OUTSIDE RECORDS SUMMARY | 2022-02-07 01:37 | XMS_ITS | Encounter Summary ---
:1955 Author Organization [facility] [place] [address] Care Team Providers Name Role Phone Renee Corcoran APRN Primary Care Provider Reason for Visit Reason Comments Headache CAVERNOMAS Consultation (Urgent) - Specialty Diagnoses / Procedures Referred By Contact Refer red To Contact Neurosurgery Diagnoses Cerebral cavernoma Chronic daily headache brainstem cavernomas Ebonie Colón MD [facility] Neurosurgery 3c Procedures [facility] [address] [address] [place], [place] [address] Referral ID Status Reason Start Date Expiration Date Visits V isits Requested Authorized [id number] Consult, 09/27/2016 09/27/2017 1 1 Test & Treat Encounter Details Date Type Department Care Team Description 10/11/2016 Office Visit Neurosurgery at [facility] Oscar De Oliveira, Cerebral cavernoma [facility] [place] [address] [facility] [phone] DR GAXIOLA [place], [place] [address] Social History Tobacco Use Types [...] documented as of this encounter Progress Notes Oscar De Oliveira MD - 10/11/2016 11:00 AM EDT I have just seen Mr. Garcia in the Neurosurgery Clinic at the request of Dr. Colón. Mr. Garcia is a pleasant 60-year-old male who was in his usual state of health until several months ago where he woke up with a severe headache. He also had a constellation of symptoms at that time including left arm numbness and weakness, a perceived imbalance or weakness in his lower extremities. He was evaluated ultimately with an MRI scan, and this revealed 2 cavernomas that reportedly had not been seen in a prior MRI 10 years ago. He was referred for a neurosurgical evaluation. I have had the chance to review the MRI and the prior MRI. I do think that at least one of the cavernomas and dural venous anomalies was seen on the MRI 10 years ago. There are basically 2 in the brainstem, one in a more ventral location on the right side Of the midbrain and one slightly more centrally located in the dorsal aspect. This dorsal one was seen on an MRI 10 years ago on the post contrast images. The more ventrally located one was not, but I will say that the slice thickness was fairly large on that earlier MRI, and this area simply could have been missed. However, I told Mr. Garcia that I would not necessarily associate these with any of his symptoms. Even if they were, there is really nothing to do for them. One would not operate on these unless there were a significant symptom. Radiosurgery has been very controversial in the treatment of these as there was some concern that radiosurgery may actually increase bleeding rates. In terms of his headaches and perceived imbalance, I would not implicate the cavernomas and simply manage these as incidental findings. He and his expressed understanding and had no further questions at the conclusion of this meeting. documented in this encounter Plan of Treatment Upcoming Encounters Date Type Specialty Care Team Description 02/14/2022 Office Visit Dermatology Ace Hardwick MD [facility] ER DR JENNIFER CASTELLANO-DERMAT OGY [place], [place] [address] (Wo rk) 03/08/2022 Appointment Radiology Oscar De Oliveira MD [facility] ER NEUROSURGERY [place], [place] [address] (Wo rk) 03/08/2022 Office Visit Neurosurgery Oscar De Oliveira MD ONE [facility] ER NEUROSURGERY [place], [place] [address] (Wo rk) 06/23/2022 Office Visit Neurology Annetta Hernandez APRN [facility] ER DRIVE Neurology [place], [place] [address] (Wo rk) documented as of this encounter Visit Diagnoses Diagnosis 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
--- OUTSIDE RECORDS SUMMARY | 2022-02-07 01:37 | XMS_ITS | Encounter Summary ---
:1955 Author Organization [facility] [place] [address] Care Team Providers Name Role Phone Renee Corcoran APRN Primary Care Provider Reason for Visit Reason Onset Date Comments Follow-up 04/19/2017 Encounter Details Date Type Department Care Team Description 04/19/2017 Telephone Neurology at [facility] Deanna Morales MD Follow-up [facility] [place] [address] NEUROLOGY DEPT [phone] [place], [place] [address] (Wo rk) Social History Tobacco [...] Telephone Encounter - Nicole Black RN - 04/19/2017 4:22 PM EDT Called and spoke with patient about his current h/a. Reassured him that patients often have a difficult week following their botox injections and that he should use his hydroxyzine and lay low. Discussed that we could try a 10 mg hydroxyzine dose if he is too sedated from the 25 mg. He will call back if the h/a continues or if he would like to try the smaller dose. Reassurance and support given. Telephone Encounter - Nicole Black RN - 04/19/2017 3:34 PM EDT Patient called and left a message on the triage line stating he has been struggling with headaches for the past few days and that he used the hydroxyzine two days ago and it helped but made him not want to do anything. He states yesterday and today he has had nausea with the headache and wonders if heshould use his hydroxyzine again. documented in this encounter Plan of Treatment Upcoming Encounters Date Type Specialty Care Team Description 02/14/2022 Office Visit Dermatology Ace Hardwick MD [facility] DR JENNIFER CASTELLANO-DERMAT [place] [phone] (Wo rk) 03/08/2022 Appointment Radiology Oscar De Oliveira MD [facility] NEUROSURGERY [place], [place] [address] (Wo rk) 03/08/2022 Office Visit Neurosurgery Oscar De Oliveira MD [facility] NEUROSURGERY [place], [place] [address] (Wo rk) 06/23/2022 Office Visit Neurology Annetta Hernandez APRN [facility] LIS Neurology [place], [place] [address] (Wo rk) documented as of this encounter Visit Diagnoses Not on filedocumented in this encounter Care Teams Magnetic Testing Technician Relationship Specialty Start Date End Date Renee Corcoran APRN PCP - General Family Medicine 02/24/16 04/10/18 documented as of this encounter
--- OUTSIDE RECORDS SUMMARY | 2022-02-07 01:37 | XMS_ITS | Encounter Summary ---
:1955 Author Organization [facility] [place] [address] Care Team Providers Name Role Phone RusscherylRenee APRN Primary Care Provider Encounter Details Date Type Department Care Team Description 07/03/2017 Telephone Neurology at [facility] Deanna Morales MD [facility] [address] NEUROLOGY DEPT [phone] [place], [place] [address] (Wo rk) Social History Tobacco [...] Telephone Encounter - Nicole Black RN - 07/03/2017 4:33 PM EST Patient called and left a message on the nurse triage line stating he had heard there was going to be a large snowstorm tomorrow and was hoping there was another time he could come in to see Dr. Morales for follow-up. Called patient pack and offered him at 11:30 for follow-up in Botox. Patient accepted time and looked at the weather report, which looks promising for that day. Information forwarded to our headache placement secretary to schedule patient in Dr. Morales's schedule. documented in this encounter Plan of Treatment Upcoming Encounters Date Type Specialty Care Team Description 02/14/2022 Office Visit Dermatology Ace Hardwick MD [facility] DR JENNIFER CASTELLANO-DERMAT [facility] [place] [phone] (Wo rk) 03/08/2022 Appointment Radiology Oscar De Oliveira MD [facility] NEUROSURGERY [place], [place] [address] (Wo rk) 03/08/2022 Office Visit Neurosurgery Oscar De Oliveira MD [facility] NEUROSURGERY [place], [place] [address] (Wo rk) 06/23/2022 Office Visit Neurology Annetta Hernandez APRN [facility] DRIVE Neurology [place], [place] [address] (Wo rk) documented as of this encounter Visit Diagnoses Not on filedocumented in this encounter Care Teams Referral Agent Relationship Specialty Start Date End Date Renee Corcoran, TUNGSTEN TENDER PCP - General Family Medicine 02/24/16 04/10/18 documented as of this encounter
--- OUTSIDE RECORDS SUMMARY | 2022-02-07 01:37 | XMS_ITS | Encounter Summary ---
:1955 Author Organization [place] [address] Care Team Providers Name Role Phone Russcheryl Renee Christopher APRN Primary Care Provider Reason for Visit Reason Onset Date Comments Disability Paperwork 05/08/2017 Encounter Details Date Type Department Care Team Description 05/08/2017 Telephone Neurology at [facility] Deanna Morales MD Disability Paperwork [facility] [place] [address] NEUROLOGY DEPT [phone] [place], [place] [address] (Wo rk) Social History Tobacco [...] Telephone Encounter - Nicole Black RN - 05/11/2017 2:49 PM EDT Faxed paperwork 05/10/17 Telephone Encounter - Nicole Black RN - 05/08/2017 8:43 AM EDT Completed disability paperwork for patient Dr. Morales to review and sign documented in this encounter Plan of Treatment Upcoming Encounters Date Type Specialty Care Team Description 02/14/2022 Office Visit Dermatology Ace Hardwick MD [facility] DR JENNIFER CASTELLANO-DERMAT [place], [place] [address] (Wo rk) 03/08/2022 Appointment Radiology Oscar De Oliveira MD [facility] NEUROSURGERY [place], [place] [address] (Wo rk) 03/08/2022 Office Visit Neurosurgery Oscar De Oliveira MD [facility] NEUROSURGERY [place], [place] [address] (Wo rk) 06/23/2022 Office Visit Neurology Annetta Hernandez APRN [facility] DRIVE Neurology [place], [place] [address] (Wo rk) documented as of this encounter Visit Diagnoses Not on filedocumented in this encounter Care Teams Service Vehicle Operator Relationship Specialty Start Date End Date Renee Corcoran APRN PCP - General Family Medicine 02/24/16 04/10/18 documented as of this encounter
--- OUTSIDE RECORDS SUMMARY | 2022-02-07 01:37 | XMS_ITS | Encounter Summary ---
:1955 Author Organization [facility] [place] [address] Care Team Providers Name Role Phone NashDanish Primary Care Provider Reason for Visit Reason Comments Skin Check Encounter Details Date Type Department Care Team Description 10/29/2014 Follow-Up Dermatology at [place] Crane MD History of basal cell [facility] carcinoma [address] [place] [address] [facility] [phone] RD-DERMATOLOGY [place] [phone] (Wo rk) Social History Tobacco Use Types Packs/Day Years Used Date Former Smoker Alcohol Use Standard Drinks/Week Comments Yes 2 (1 standard drink = 0.6 oz pure alcoho l) Sex Assigned at Date Recorded Not on file documented as of this encounter Progress Notes Nori Conrad MD - 10/29/2014 8:09 AM EDT Date of office visit: 10/29/2014 Braulio Garcia : 1955 Provider: Nori Conrad MD SKIN HISTORY: BCC on left lower leg, right scapula, right clavicular area. Actinic keratosis Diffuse actinic damage treated with Carac, responded well HPI Braulio Garcia is a 58 y.o. year old male established patient last seen by me on 10/16/2013. Patientpresents for a full skin exam. Patient has no new or changing lesions of concern. He is good about sun protection, wears sunscreen and a hat when outdoors. He has been healthy and well overall since last visit. PAST MEDICAL HX Patient Active Problem List Diagnosis Code ??? Basal cell carcinoma of skin 173.91 MEDS: Current Outpatient Prescriptions Medication Sig Dispense Refill ??? aspirin 81 mg EC tablet Take 81 mg by mouth daily. ??? ascorbic acid (VITAMIN C WITH NICKO HIPS) 500 mg tablet No current facility-administered medications for this visit. 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 SKIN EXAM: Exam of scalp, ears, neck, face. Exam of chest, back, arms, hands. Exam of buttocks, suprapubic skin and hips. Exam of legs and feet. No exam of genitalia. Significant skin findings: 1. Scars on left lower leg, right scapula, right clavicular area. 2. Multiple, 0.3-0.5cm, medium-brown, evenly-pigmented macules and papules. All with regular pigmentpattern on dermoscopy. No pigmented lesions suspicious for melanoma. 3. 9 mm x 9 mm medium brown with a white area at about 6 o'clock under umbillicus ASSESSMENT/PLAN 1. History of BCC, s/p excision. NER. 2. Benign appearing nevi with even pigmentation and well defined margins are noted. Patient reassured 3. Benign appearing nevus- abdomen below umbilicus, regular pigment upon dermoscopy. Will monitor for growth and change, call if such occurs. Discussed importance of sun protection, sun avoidance strategies, protective clothing, and sunscreen. Return to clinic: in 1 year for annual skin cancer evaluation, sooner if needed. I am documenting this encounter acting as the scribe for and in the presence of Dr. Conrad: Za Sun LPN I reviewed and edited this note above, a scribed service performed by my nurse, and on closure of this note I agree with the accuracy of the documentation in this encounter. Nori Conrad MD Section of Dermatology [facility] documented in this encounter Plan of Treatment Upcoming Encounters Date Type Specialty Care Team Description 02/14/2022 Office Visit Dermatology Ace Hardwick MD [facility] DR JENNIFER CASTELLANO-DERMAT [place], [place] [address] (Wo rk) 03/08/2022 Appointment Radiology Oscar De Oliveira MD [facility] ER NEUROSURGERY [place], [place] [address] (Wo rk) 03/08/2022 Office Visit Neurosurgery Oscar De Oliveira MD [facility] ER NEUROSURGERY [place], [place] [address] (Wo rk) 06/23/2022 Office Visit Neurology Annetta Hernandez APRN [facility] ER DRIVE Neurology [place], [place] [address] (Wo rk) documented as of this encounter Visit Diagnoses Diagnosis History of basal cell carcinoma Personal history of other malignant neop lasm of skin documented in this encounter Care Teams Replenisher Relationship Specialty Start Date End Date Danish Cao DO PCP - General 06/15/10 02/23/[address] [place] [address] documented as of this encounter
--- OUTSIDE RECORDS SUMMARY | 2022-02-07 01:37 | XMS_ITS | Encounter Summary ---
:1955 Author Organization [facility] [place] [address] Care Team Providers Name Role Phone Russcheryl Renee Christopher APRN Primary Care Provider Encounter Details Date Type Department Care Team Description 06/23/2017 Telephone Neurology at [facility] Deanna Morales MD [facility] [place] [address] NEUROLOGY DEPT [phone] [place], [place] [address] (Wo rk) Social History Tobacco [...] Telephone Encounter - Nicole Black RN - 06/23/2017 5:03 PM EST Called patient and offered him the appointment for Monday at [facility] for Botox and follow-up. Patient states his is not home right now to confirm that this is okay but he does not see anything in hisschedule that would conflict. He will take this appointment and if there is any problem, he will call back. Message sent to our headache quality assurance assessor asking her to schedule patient in the Monday block. If patient calls back and needs to come in on Monday, he can simply be added back into the Botox clinic and understands that that would be a procedure- only visit. Telephone Encounter - Nicole Black RN - 06/23/2017 4:33 PM EST Will move his appointment to Monday at 4:30 as patient is currently booked in a Botox clinic, not afollow up clinic. Telephone Encounter - Deanna Morales MD - 06/23/2017 4:07 PM EST Patient is scheduled for Monday07/05/2017 This is a f/u visit appt Please come in at 3pm Future Appointments and Orders Future Appointments Provider Department Dept Phone 07/05/2017 3:00 PM Deanna Morales MD Neurology at [place] [phone] Deanna Morales MD [facility] Neurology Telephone Encounter - Nicole Black RN - 06/23/2017 2:31 PM EST Patient called to check to see when he should come in for his botox on 07/05. He states he was scheduled for a follow up on that day as well and didn't know if he was supposed to come at the time assigned or at any time in the afternoon. documented in this encounter Plan of Treatment Upcoming Encounters Date Type Specialty Care Team Description 02/14/2022 Office Visit Dermatology Ace Hardwick MD [facility] ER DR JENNIFER CASTELLANO-DERMAT [facility] [place], [place] [address] (Wo rk) 03/08/2022 Appointment Radiology Oscar De Oliveira MD [facility] ER NEUROSURGERY [place], [place] [address] (Wo rk) 03/08/2022 Office Visit Neurosurgery Oscar De Oliveira MD [facility] ER NEUROSURGERY [place], [place] [address] (Wo rk) 06/23/2022 Office Visit Neurology Annetta Hernandez APRN [facility] ER DRIVE Neurology [place], [place] [address] (Wo rk) documented as of this encounter Visit Diagnoses Not on filedocumented in this encounter Care Teams Customer Relations Specialist Relationship Specialty Start Date End Date Renee Corcoran, PUBLIC AFFAIRS MANAGER PCP - General Family Medicine 02/24/16 04/10/18 documented as of this encounter
--- OUTSIDE RECORDS SUMMARY | 2022-02-07 01:37 | XMS_ITS | Encounter Summary ---
:1955 Author Organization [facility] [place] [address] Care Team Providers Name Role Phone Jewell Renee Candi PHILLIPS Primary Care Provider Reason for Visit Reason Onset Date Comments Other 10/31/2016 Encounter Details Date Type Department Care Team Description 10/31/2016 Telephone [place] [facility] [place] Morales MD Other [facility] [place] [address] NEUROLOGY DEPT [phone] [place], [place] [address] (Wo rk) Social History Tobacco [...] Telephone Encounter - Nicole Black RN - 10/31/2016 9:17 AM EDT There is already a telephone encounter open for this patient today. See 10/31/16 telephone note. Telephone Encounter - Iraida Beth - 10/31/2016 9:02 AM EDT Caller: Angela If not Pt / Relation to pt: Best time to reach caller: anytime Before 2:30pm - Informed caller that nurse will call back by the end of the day Best number to reach caller: [phone] Reason for call: Called in with a couple questions. States that patient had had a CTA of his chest in June 2016. Also had one of his head at the end of July. They are concerned about the amount of CT's that he is having- concerned if this radiation level is okay or not. Also states that he needs lab orders entered to be done prior to his CTA scheduled for 11/10 documented in this encounter Plan of Treatment Upcoming Encounters Date Type Specialty Care Team Description 02/14/2022 Office Visit Dermatology Ace Hardwick MD [facility] DR JENNIFER CASTELLANO-DERMAT [place] [phone] (Wo rk) 03/08/2022 Appointment Radiology Oscar De Oliveira MD [facility] NEUROSURGERY [place], [place] [address] (Wo rk) 03/08/2022 Office Visit Neurosurgery Oscar De Oliveira MD [facility] NEUROSURGERY [place], [place] [address] (Wo rk) 06/23/2022 Office Visit Neurology Annetta Hernandez APRN [facility] L[facility] Neurology [place], [place] [address] (Wo rk) documented as of this encounter Visit Diagnoses Not on filedocumented in this encounter Care Teams Dental Hygienist Mobile Coordinator Relationship Specialty Start Date End Date Renee Corcoran APRN PCP - General Family Medicine 02/24/16 04/10/18 documented as of this encounter
--- OUTSIDE RECORDS SUMMARY | 2022-02-07 01:37 | XMS_ITS | Encounter Summary ---
:1955 Author Organization [facility] [place] [address] Care Team Providers Name Role Phone JewellRenee APRN Primary Care Provider Reason for Visit Reason Comments Botox Injection Migraine High Dollar Medication (Routine) - Specialty Diagnoses / Procedures Referred By Contact Refer red To Contact Neurology Diagnoses Intractable chronic migraine without aura and with status migrainosus Deanna Morales MD [facility] [place] 3c Procedures Auth Request for Medication TC ONABOTULINUMTOXINA, 1 UNIT, INJECTION [facility] [place] [address] [place] [address] Referral ID Status Reason Start Date Expiration Date Visits V isits Requested Authorized [id number] Consult, 11/21/2016 12/05/2017 8 8 Test & Treat Encounter Details Date Type Department Care Team Description 04/11/2017 Office Visit Neurology at [facility] [place]anna Morales MD [place] (new daily [facility] per sistent headache) [facility] [address] [place] NE[place]OLOGY [place] [address] [place] [address] [phone] Social History Tobacco Use Types Packs/Day Years [...] Sign Reading Time Taken Comments Blood Pressure 136/93 04/11/2017 12:35 PM EDT Pulse 72 04/11/2017 12:35 PM EDT Temperature - - Respiratory Rate - - Oxygen Saturation - - Inhaled Oxygen Concentration - - Weight - - Height - - Body Mass Index - - documented in this encounter Procedure Notes Deanna Morales MD - 04/11/2017 3:30 PM EDTAssociated Order(s): CHEMODENERVATION, MEDICAL Neurology Procedure note Date: 04/11/2017 Patient: Braulio Garcia : 1955 Procedure: Botox injections (PREEMPT protocol) - q 12 weeks Indications: NDHP Chronic Migraine with and without aura Date Procedure MIDAS 01/18/2017 Botox # 1 156, 90/90 MCCLELLAND days, 7/10 MCCLELLAND intensity 04/11/2017 Botox # 2 160, 90/90 MCCLELLAND days, 8/10 MCCLELLAND intensity Risk and benefits were explained [...] units divided between 2 sites in the setter automatic spinning lathe muscles, 5 units into 1 site in [...] without any immediate complications. Deanna Morales MD [facility] Neurology Migraine Disability Assessment # of days in the past 3 months 1. Missed work / school because of MCCLELLAND 90 2. Productivity at work / school reduced by > half because of MCCLELLAND (do not count days from Q.1) 0 3. Did not do housework because of MCCLELLAND 10 4. Productivity in household work reduced by > half because of MCCLELLAND (do not count days from Q.3) 80 5. Missed family / social / leisure activities because of MCCLELLAND 0 Total 160 MIDAS grade (use total of Q1 to 5) I: 0-5, little to no disability II: 6-10, mild disability III: 11-20, moderate disability IV: 21+, severe disability A. # of days in the last 3 months with a MCCLELLAND (count each day if MCCLELLAND lasted > 1 day) 90 B. Average MCCLELLAND intensity (0-10) 8 documented in this encounter Plan of Treatment Upcoming Encounters Date Type Specialty Care Team Description 02/14/2022 Office Visit Dermatology Ace Hardwick MD [facility] DR JENNIFER CASTELLANO-DERMAT [place] [phone] (Wo rk) 03/08/2022 Appointment Radiology Oscar De Oliveira MD [facility] NEUROSURGERY [place], [place] [address] (Wo rk) 03/08/2022 Office Visit Neurosurgery Oscar De Oliveira MD [facility] NEUROSURGERY [place], [place] [address] (Wo rk) 06/23/2022 Office Visit Neurology Annetta Hernandez APRN [facility] LIS Neurology [place], [place] [address] (Wo rk) documented as of this encounter Procedures Procedure Name Priority Date/Time Associated Diagnosis Comme nts CHEMODENERVATION, Routine 04/11/2017 1:20 PM Resu lts for this MEDICAL EDT procedure are i n the results section. documented in this encounter Results Chemodenervation, medical (04/11/2017 1:20 PM EDT) Narrative Deanna Morales MD - 04/11/2017 1:20 PM EDT Deanna Morales MD ? 04/11/2017 ??1:20 PM Neurology Procedure note Date: 04/11/2017 Patient: Braulio Garcia : ??1955 Procedure: Botox injections (PREEMPT pro tocol) - q 12 weeks Indications: NDHP ??Chronic Migraine with and without aur a Date ??Procedure ?? MIDAS 01/18/2017 ??Botox # 1 ?? 156, 90/90 MCCLELLAND d ays, 7/10 MCCLELLAND intensity 04/11/2017 ??Botox # 2 ?? 160, 90/90 MCCLELLAND d ays, 8/10 MCCLELLAND intensity ?? Risk and benefits were [...] units divided between 2 sites in the setter automatic spinning lathe muscles, 5 uni ts into 1 site [...] out any immediate complications. Deanna Morales MD [facility] Neurology Migraine Disability Assessment # of days in the past 3 months 1. Missed work / school because of MCCLELLAND 90 2. Productivity at work / school reduced by > half because of MCCLELLAND (do not count days from Q.1) 0 3. Did not do housework because of MCCLELLAND 10 4. Productivity in household work reduce d by > half because of MCCLELLAND (do not count days from Q.3) 80 5. Missed family / social / leisure acti vities because of MCCLELLAND 0 Total 160 MIDAS grade (use total of Q1 to 5) I: 0-5, little to no disability II: 6-10, mild disability III: 11-20, moderate disability IV: 21+, severe disability A. # of days in the last 3 months with a MCCLELLAND (count each day if MCCLELLAND lasted > 1 day) 90 B. Average MCCLELLAND intensity (0-10) 8 Deanna Morales MD PROCEDURE/MINOR SURGICAL ORD ERABLES documented in this encounter Visit Diagnoses Diagnosis NDPH (new daily persistent headache) New daily persistent headache documented in this encounter Administered Medications Inactive Administered Medications - up to 3 most recent administrations Medication Order MAR Action Action Date Dose Rate Site botulinum toxin type A (BOTOX) Given 04/11/2017 1:16 PM EDT 155 Units injection 200 Units 200 Units, Intramuscular, ONCE, 1 dose, On Mon04/11/17 at 1330, Routine documented in this encounter Care Teams Brick Pointer Relationship Specialty Start Date End Date Renee Corcoran APRN PCP - General Family Medicine 02/24/16 04/10/18 documented as of this encounter
--- OUTSIDE RECORDS SUMMARY | 2022-02-07 01:37 | XMS_ITS | Encounter Summary ---
:1955 Author Organization [facility] [place] [address] Care Team Providers Name Role Phone Renee Corcoran Candi PHILLIPS Primary Care Provider Encounter Details Date Type Department Care Team Description 10/28/2016 Orders Only Neurology at [facility] Deanna Morales MD [facility] [place] [address] NEUROLOGY DEPT [phone] [place], [place] [address] (Wo rk) Social History Tobacco [...] Ace Hardwick MD [facility] ER DR JENNIFER CASTELLANO-DERMAT [place], [place] [address] (Wo rk) 03/08/2022 Appointment Radiology Oscar De Oliveira MD [facility] NEUROSURGERY [place], [place] [address] (Wo rk) 03/08/2022 Office Visit Neurosurgery Oscar De Oliveira MD [facility] NEUROSURGERY [place], [place] [address] (Wo rk) 06/23/2022 Office Visit Neurology Annetta Hernandez APRN [facility] ER DRIVE Neurology [place], [place] [address] (Wo rk) documented as of this encounter Visit Diagnoses Not on filedocumented in this encounter Care Teams Bakery Products Checker Relationship Specialty Start Date End Date Renee Corcoran, SCULLION CHIEF PCP - General Family Medicine 02/24/16 04/10/18 documented as of this encounter
--- OUTSIDE RECORDS SUMMARY | 2022-02-07 01:37 | XMS_ITS | Encounter Summary ---
:1955 Author Organization [facility] [place] [address] Care Team Providers Name Role Phone Renee Corcoran Candi PHILLIPS Primary Care Provider Reason for Visit Reason Onset Date Comments Triage 11/02/2016 Encounter Details Date Type Department Care Team Description 11/02/2016 Telephone [place]rology [place] [facility] Deanna Morales MD Triage [facility] [place] [facility] [place] [phone] NEUROLOGY DEPT [phone] [place], [place] [address] (Wo rk) Social History Tobacco [...] Telephone Encounter - Nicole Black RN - 11/04/2016 5:45 PM EDT Called patient and informed him of Dr. Morales's recommendation as noted. Patient understands instructions and agrees with this plan. Telephone Encounter - Nicole Blcak RN - 11/04/2016 5:[address] Morales, stop baclofen Add keppra 500 mg BID PRN #30 Telephone Encounter - Nicole Black RN - 11/04/2016 4:01 PM EDT Spoke with patient and he is pretty convinced that the baclofen was causing worsening headaches. He has a heart implant that monitors like an EKG so if there was something going on, he would get a callfrom the monitoring site. He has tried hydroxyzine in the past and it was very sedating. He wonders what Dr. Morales suggests he try next. He also thought Dr. Morales was going to talk to his pooling operator about switching to the candesartan from lisinopril and hadn't heard about that so he thought he would mention it. Telephone Encounter - Nicole Black RN - 11/04/2016 12:56 PM EDT Patient called back and stated chest pain is actually a normal occurrence for him with a severe headache and he isn't worried about the chest pain. His concern is that the baclofen was causing a worse headache. Telephone Encounter - Nicole Black RN - 11/03/2016 2:03 PM EDT Called patient and left a message informing him of response per Dr. Morales. I let him know that the symptoms could be from baclofen or something completely different. I asked that he call back to speak with me when he gets my message. Telephone Encounter - Deanna Morales MD - 11/03/2016 11:53 AM EDT If he is having CP then he needs evaluation by PCP and at least an EKG Deanna Morales MD [facility] Neurology Telephone Encounter - Nicole Black RN - 11/03/2016 11:41 AM EDT Patient called again and left a message on the triage line that he has not taken the baclofen since yesterday and still has a headache. Headache is now a 5/10. He would like a recommendation as to whathe should do - try baclofen again or use something else? Telephone Encounter - Nicole Blakc RN - 11/02/2016 4:17 PM EDT Patient called and left a message on the triage line stating he had a terrible headache yesterday after taking his baclofen for the second day. He says he was working around the house and was bending & lifting but nothing out of the ordinary. He says the h/a was a 10/10 and he had chest pain with the h/a. He says he got better overnight but doesn't know if the symptoms were from the baclofen or something separate. He would like to know if he should keep taking the medication. documented in this encounter Plan of Treatment Upcoming Encounters Date Type Specialty Care Team Description 02/14/2022 Office Visit Dermatology Ace Hardwick MD [facility] DR JENNIFER CASTELLANO-DERMAT [place], [place] [address] (Wo rk) 03/08/2022 Appointment Radiology Oscar De Oliveira MD [facility] NEUROSURGERY [place], [place] [address] (Wo rk) 03/08/2022 Office Visit Neurosurgery Oscar De Oliveira MD [facility] NEUROSURGERY [place], [place] [address] (Wo rk) 06/23/2022 Office Visit Neurology Annetta Hernandez APRN [facility] DR[facility] Neurology [place], [place] [address] (Wo rk) documented as of this encounter Visit Diagnoses Not on filedocumented in this encounter Care Teams Manager Business Systems Relationship Specialty Start Date End Date Renee Corcoran, BOND CLERK PCP - General Family Medicine 02/24/16 documented as of this encounter
--- OUTSIDE RECORDS SUMMARY | 2022-02-07 01:37 | XMS_ITS | Encounter Summary ---
:1955 Author Organization [facility] [place] [address] Care Team Providers Name Role Phone Russcheryl Renee Candi PHILLIPS Primary Care Provider Reason for Visit Reason Onset Date Comments Results 12/09/2016 Encounter Details Date Type Department Care Team Description 12/09/2016 Telephone Neurology at [facility] Deanna Morales MD Results [facility] [place] [phone] NEUROLOGY DEPT [phone] [place], [place] [address] (Wo rk) Social History Tobacco [...] Telephone Encounter - Nicole Black RN - 12/09/2016 2:14 PM EDT Called patient and informed him of results and recommendations as noted by Dr. Morales. Discussed warnings: You may get drowsy, dizzy, or have blurred vision. Do not drive, use machinery, or do anything that needs mental alertness until you know how this medicine affects you. To reduce dizzy or fainting spells, do not sit or stand up quickly, especially if you are an older patient. Alcohol can increase drowsiness and dizziness. ?? This medicine can make you more sensitive to the sun. Keep out of the sun. If you cannot avoid beingin the sun, wear protective clothing and use sunscreen. Do not use sun lamps or tanning beds/booths. ?? Patients and their families should watch out for new or worsening depression or thoughts of suicide.Also watch out for sudden changes in feelings such as feeling anxious, agitated, panicky, irritable,hostile, aggressive, impulsive, severely restless, overly excited and hyperactive, or not being ableto sleep. If this happens, especially at the beginning of treatment or after a change in dose, call your health care rep. Patient understands recommendations, instructions, warnings, and agrees with this plan. Telephone Encounter - Deanna Morales MD - 12/09/2016 1:26 PM EDT CSF profile is NORMAL These labs are normal and reassuring. Continue the plan as discussed in clinic. Deanna Morales MD [facility] Neurology Recent Results (from the past 24 hour(s)) Glucose Level CSF Result Value Ref Range Glucose, CSF 59 mg/dL Protein Level CSF Result Value Ref Range T Protein, CSF 35 15 - 45 mg/dL Xanthochromia Neg Miscellaneous Lab request Result Value Ref Range Misc Lab Result Request received in lab. CSF DESC 1 Result Value Ref Range Tube Num CSF #1 1 Color CSF #1 Colorless Colorless Appear CSF #1 Clear Clear Tot Vol CSF #1 2.0 mL CSF DESC 2 Result Value Ref Range Tube Num CSF #2 2 Color CSF #2 Colorless Colorless Appear CSF #2 Clear Clear Tot Vol CSF #2 2.0 mL CSF DESC 3 Result Value Ref Range Tube Num CSF #3 3 Color CSF #3 Colorless Colorless Appear CSF #3 Clear Clear Tot Vol CSF #3 2.0 mL CSF DESC 4 Result Value Ref Range Tube Num CSF #4 4 Color CSF #4 Colorless Colorless Appear CSF #4 Clear Clear Tot Vol CSF #4 1.0 mL CSF Cell Count Result Value Ref Range Tube # Ct CSF [address] 1 0 - 5 /mcl RBC CSF CT 0 /mcl Neutrophil CSF See Comment documented in this encounter Plan of Treatment Upcoming Encounters Date Type Specialty Care Team Description 02/14/2022 Office Visit Dermatology Ace Hardwick MD [facility] ER DR JENNIFER CASTELLANO-DERMAT [facility] [place] [address] (Wo rk) 03/08/2022 Appointment Radiology Oscar De Oliveira MD [facility] NEUROSURGERY [place], [place] [address] (Wo rk) 03/08/2022 Office Visit Neurosurgery Oscar De Oliveira MD [facility] NEUROSURGERY [place], [place] [address] (Wo rk) 06/23/2022 Office Visit Neurology Annetta Hernandez APRN [facility] DR[facility] Neurology [place], [place] [address] (Wo rk) documented as of this encounter Visit Diagnoses Not on filedocumented in this encounter Care Teams Paintless Dent Repair Technician Relationship Specialty Start Date End Date Renee Corcoran, REFRIGERATION PLANT CORK INSULATOR PCP - General Family Medicine 02/24/16 04/10/18 documented as of this encounter
--- OUTSIDE RECORDS SUMMARY | 2022-02-07 01:37 | XMS_ITS | Encounter Summary ---
:1955 Author Organization [facility] Address [facility] [address] [place] [address] Care Team Providers Name Role Phone Russcheryl Renee Christopher APRN Primary Care Provider Reason for Visit Reason Onset Date Comments Prior Authorization 12/12/2016 Candesartan 8 mg #30 for 30 Encounter Details Date Type Department Care Team Description 12/12/2016 Telephone Neurology at [facility] Deanna Morales MD Prior Authorization [facility] ([place] ndesartan [address] for 30 ) [place] [address] NEUROLOGY DEPT [phone] [place], [place] [address] Social History Tobacco Use Types [...] this encounter Miscellaneous Notes Telephone Encounter - Trena Moscoso CMA - 12/13/2016 10:18 AM EDT Patient is no longer taking this medication he has side effects to it discontinued on 11/28/16. Telephone Encounter - Trena Moscoso CMA - 12/12/2016 10:36 AM EDT Images from the original note were not included. .Leach: JOLIE Status: Question Response - N/A Drug: Atacand 8MG OR TABS Form: [employer] Electronic PA Form Problem with this form? Call us at . documented in this encounter Plan of Treatment Upcoming Encounters Date Type Specialty Care Team Description 02/14/2022 Office Visit Dermatology Ace Hardwick MD [facility] DR JENNIFER CASTELLANO-DERMAT [place]Y [place] [phone] (Wo rk) 03/08/2022 Appointment Radiology Oscar De Oliveira MD [facility] NEUROSURGERY [place], [place] [address] (Wo rk) 03/08/2022 Office Visit Neurosurgery Oscar De Oliveira MD [facility] NEUROSURGERY [place], [place] [address] (Wo rk) 06/23/2022 Office Visit Neurology Annetta Hernandez APRN [facility] DR[facility] Neurology [place], [place] [address] (Wo rk) documented as of this encounter Visit Diagnoses Not on filedocumented in this encounter Care Teams Cold Work Operator Relationship Specialty Start Date End Date Renee Corcoran APRN PCP - General Family Medicine 02/24/16 04/10/18 documented as of this encounter
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
--- OUTSIDE RECORDS SUMMARY | 2022-02-07 01:37 | XMS_ITS | Encounter Summary ---
:1955 Author Organization [facility] [place] [address] Care Team Providers Name Role Phone Renee Corcoran APRN Primary Care Provider Reason for Referral Diagnostic Test (Routine) - Closed Specialty Diagnoses / Procedures Referred By Contact Refer red To Contact Radiology Diagnoses Trigeminal neuralgia Renee Corcoran APRN [facility] Rad Mri Procedures MRI Brain With/WO Contrast (GENERIC) [address] [place] [id number] Referral ID Status Reason Start Date Expiration Date Visits V isits Requested Authorized [id number] Closed Specialty 08/29/2016 08/29/2017 1 1 Service Requested Reason for Visit Diagnostic Test (Routine) - Closed Specialty Diagnoses / Procedures Referred By Contact Refer red To Contact Radiology Diagnoses Trigeminal neuralgia Renee Corcoran APRN [facility] Rad Mri Procedures MRI Brain With/WO Contrast (GENERIC) [address] [place] [address] Referral ID Status Reason Start Date Expiration Date Visits V isits Requested Authorized [id number] Closed Specialty 08/29/2016 08/29/2017 1 1 Service Requested Encounter Details Date Type Department Care Team Description 09/10/2016 Hospital Encounter MRI at [facility] Renee Corcoran Trigeminal neuralgia [facility] [address], [address] [place] [id number] [place] [phone] Social History Tobacco Use Types Packs/Day Years [...] MD [facility] DR JENNIFER CASTELLANO-DERMAT OLOGY [place], [place] [address] (Wo rk) 03/08/2022 Appointment Radiology Oscar De Oliveira MD [facility] NEUROSURGERY [place], [place] [address] (Wo rk) 03/08/2022 Office Visit Neurosurgery Oscar De Oliveira MD [facility] NEUROSURGERY [place], [place] [address] (Wo rk) 06/23/2022 Office Visit Neurology Annetta Hernandez APRN [facility] Neurology [place], [place] [address] (Wo rk) documented as of this encounter Procedures Procedure Name Priority Date/Time Associated Diagnosis Comme nts MRI BRAIN WWO Routine 09/10/2016 12:20 PM Trigeminal neuralgia Results for this CONTRAST (GENERIC) EST procedure are in the results section. 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 Extensive supratentorial white matter si gnal alteration which may represent advanced small vessel ischemic disease, but demyelination is a possibility. I have personally reviewed the image(s) and the residents interpretation and agree with the findings, GRAY LEVY at 09/10/2016 12:53 PM Narrative 09/10/2016 12:53 PM EST EXAMINATION: MRI BRAIN WWO CONTRAST CLINICAL HISTORY: Trigeminal neuralgia TECHNIQUE: MRI of the brain performed be fore and after the IV administration of 7 cc Gadavist per trigeminal nerve twan col. COMPARISON: None FINDINGS: There are multiple scattered areas of no nspecific patchy, punctate and ovoid foci of T2 signal alteration in the supr atentorial brain. No foci of restricted diffusion. The ventricles and sulci are proportional size. The basal cisterns and foramen magnum are patent. There are 2 small foci of susceptibility artifact within the right midbrain and dorsal right timothy which demonstrate cent ral T2 hyperintensity and are associated with a developmental venous anomaly. The se most likely represent small cavernomas. These presumed cavernomas ma y affect the right trigeminal nerve nucleus. No abnormalities identified davian ng the course of the bilateral trigeminal nerves. Meckel's caves are un remarkable. The cavernous sinus and superior orbital fissure and foramen ova le appear normal. The bilateral trigeminal fat pads are unremarkable. Patchy paranasal sinus mucosal thickenin g is identified. Midline structures appear normal. The major intracranial flow voids are pr esent. Normal appearance of the orbits and thei r contents. Procedure Note Gray Levy MD - 09/10/2016Formatti ng of this note might be different from the original. EXAMINATION: MRI BRAIN WWO CONTRAST CLINICAL HISTORY: Trigeminal neuralgia TECHNIQUE: MRI of the brain performed be fore and after the IV administration of 7 cc Gadavist per trigeminal nerve twan col. COMPARISON: None FINDINGS: There are multiple scattered areas of no nspecific patchy, punctate and ovoid foci of T2 signal alteration in the supr atentorial brain. No foci of restricted diffusion. The ventricles and sulci are proportional size. The basal cisterns and foramen magnum are patent. There are 2 small foci of susceptibility artifact within the right midbrain and dorsal right timothy which demonstrate cent ral T2 hyperintensity and are associated with a developmental venous anomaly. The se most likely represent small cavernomas. These presumed cavernomas ma y affect the right trigeminal nerve nucleus. No abnormalities identified davian ng the course of the bilateral trigeminal nerves. Meckel's caves are un remarkable. The cavernous sinus and superior orbital fissure and foramen ova le appear normal. The bilateral trigeminal fat pads are unremarkable. Patchy paranasal sinus mucosal thickenin g is identified. Midline structures appear normal. The major intracranial flow voids are pr esent. Normal appearance of the orbits and thei r contents. IMPRESSION There are probably 2 cavernomas within t he brainstem which could affect the right trigeminal nerve nucleus. Extensive supratentorial white matter si gnal alteration which may represent advanced small vessel ischemic disease, but demyelination is a possibility. I have personally reviewed the image(s) and the residents interpretation and agree with the findings, GRAY LEVY at 09/10/2016 12:53 PM Renee Corcoran APRN IMG MRI ORDERABLES documented in this encounter Visit Diagnoses Diagnosis Trigeminal neuralgia documented in this encounter Administered Medications Inactive Administered Medications - up to 3 most recent administrations Medication Order MAR Action Action Date Dose Rate Site gadobutrol (GADAVIST) 1 mMol/mL Given 09/10/2016 12:20 PM EST 7 mLs injection 7.26 mL 7.26 mL (0.1 mL/kg/dose ? 72.6 kg Order-specific weight), Intravenous, ONCE PRN, 1 dose, Starting on 09/10/16 at 1220, Until 09/10/16 at 1220, Per Protocol, Routine documented in this encounter Care Teams Manager Bridge Relationship Specialty Start Date End Date Renee Corcoran APRN PCP - General Family Medicine 02/24/16 04/10/18 documented as of this encounter
--- OUTSIDE RECORDS SUMMARY | 2022-02-07 01:37 | XMS_ITS | Encounter Summary ---
:1955 Author Organization [facility] [place] [address] Care Team Providers Name Role Phone Renee Corcoran APRN Primary Care Provider Reason for Visit Reason Onset Date Comments Follow-up 12/26/2016 Encounter Details Date Type Department Care Team Description 12/26/2016 Telephone Neurology [place] [facility] [place]anna Morales MD Follow-up [facility] [place] [phone] NEUROLOGY DEPT [phone] [place], [place] [address] (Wo rk) Social History Tobacco [...] this encounter Miscellaneous Notes Telephone Encounter - Asiya David APRN - 12/26/2016 11:36 AM EDT Noted Telephone Encounter - Nicole lBack RN - 12/26/2016 10:13 AM EDT Last Appointment: 12/09/16 Next Appointment: 02/20/17 Provider: Dr. Morales Reason for Call: Medication Update Patient report: Patient called and left a message on the triage line stating he increased his depakote to 500 mg BIDas directed. He states Monday and Monday were pretty good days. Monday night he didn't sleep well and this morning work up with a really bad headache and states he would consider this one of only a couple 10/10 headaches he has had in his life. He state the right side of his head hurts and the pain is making him nauseated. He has not taken anything for the headache this morning. Per Dr. Morales's treatment plan, he can use naproxen & hydroxyzine for the headache and repeat the dose after four hours if needed. He was sedated by the hydroxyzine in the past but that would likely be helpful for him with a 10/10 headache. The hydroxyzine will also likely help his nausea. Any Additional Information to Relay: We discussed starting Botox again and he is interested in this. He says his would want to discuss this more with Dr. Morales before a visit for the actual injections. He is away this week but will call next week if his h/a pattern doesn't decrease and will set up a time to come in. He will finish a few things around the house and will then take the hydroxyzine & naproxen when he is ready to lay down and rest. Plan/Intervention/Follow Up - Report forwarded to Dr. Morales & Asiya David APRN as FYI Telephone Encounter - Nicole Black RN - 12/26/2016 9:00 AM EDT Patient called and left a message on the triage line stating he increased his depakote to 500 mg BIDas directed. He states Monday and Monday were pretty good days. Haim night he didn't sleep well and this morning work up with a really bad headache and states he would consider this one of only a couple 10/10 headaches he has had in his life. He state the right side of his head hurts and the pain is making him nauseated. He is going to lay low today but would like to hear any suggestions we have. documented in this encounter Plan of Treatment Upcoming Encounters Date Type Specialty Care Team Description 02/14/2022 Office Visit Dermatology Ace Hardwick MD [facility] DR JENNIFER CASTELLANO-DERMAT OGY [place], [place] [address] (Wo rk) 03/08/2022 Appointment Radiology Oscar De Oliveira MD [facility] NEUROSURGERY [place], [place] [address] (Wo rk) 03/08/2022 Office Visit Neurosurgery Oscar De Oliveira MD [facility] NEUROSURGERY [place], [place] [address] (Wo rk) 06/23/2022 Office Visit Neurology Annetta Hernandez APRN [facility] DR[address] Neurology [place], [place] [address] (Wo rk) documented as of this encounter Visit Diagnoses Not on filedocumented in this encounter Care Teams Heading Pinner Relationship Specialty Start Date End Date Renee Corcoran APRN PCP - General Family Medicine 02/24/16 04/10/18 documented as of this encounter
--- OUTSIDE RECORDS SUMMARY | 2022-02-07 01:37 | XMS_ITS | Encounter Summary ---
:1955 Author Organization [facility] [address] Care Team Providers Name Role Phone Renee Corcoran APRN Primary Care Provider Reason for Referral Surgical (Routine) - Specialty Diagnoses / Procedures Referred By Contact Refer red To Contact Diagnoses NDPH (new daily persistent headache) Deanna Morales MD Procedures Lumbar Puncture [facility] [place] [address] Referral ID Status Reason Start Date Expiration Date Visits V isits Requested Authorized [id number] Consult, 10/26/2016 10/26/2017 1 1 Test & Treat Reason for Visit Reason Comments Headache Consultation (Routine) - Closed Specialty Diagnoses / Procedures Referred By Contact Refer red To Contact Neurology Diagnoses headache Renee Corcoran APRN [place], Justin J, MD [address] [facility] [place] [address] [place] [address] Phone: Fax: Referral ID Status Reason Start Date Expiration Date Visits V isits Requested Authorized [id number] Closed Evaluate and 10/13/2016 10/13/2017 1 1 Treat Connection Center Encounter Details Date Type Department Care Team Description 10/26/2016 Office Visit Neurology at [facility] Deanna Morales MD NDPH (new daily [facility] per sistent headache) Lis GUZMAN (Primary Dx) [place], [place] NEUROLOGY DEPT [id number] [place] [address] [phone] Social History Tobacco Use Types Packs/Day Years [...] Sign Reading Time Taken Comments Blood Pressure 137/95 10/26/2016 12:36 PM EDT Pulse 80 10/26/2016 12:36 PM EDT Temperature - - Respiratory Rate - - Oxygen Saturation - - Inhaled Oxygen Concentration - - Weight 72.6 kg (160 lb) 10/26/2016 12:36 PM EDT reporte d Height 177.8 cm (5' 10) 10/26/2016 12:36 PM EDT report ed Body Mass Index 22.96 10/26/2016 12:36 PM EDT documented in this encounter Patient Instructions Patient InstructionsDeanna Morales MD - 10/26/2016 1:00 PM EDT Office Number: ([facility] [place]) Clinic nurse number for most issues and prescription refills (Rian) (Karishma) (Nicole) For Prescription Refills: Please call for refills when you have one month left on your medication, we have 48 hours from the time you call to get the medication refill placed. Please call the clinic rather then using [facility] or e-mail, as the communication is better in real time. Thank you and I look forward to working with you. Book: [employer] Headache (on ebay) Isidoro/ [place]/Betzy (editors) the 5th or 6th edition Keep your Calendar and bring them to your appointment please. Diagnosis: New Daily persistent Headache - migraine without aura phenotype Headache attributed to cavernous angioma - For Headache Prevention: Lisinopril 5mg daily --> Candesartan 4mg (optimal dose of 16mg daily for headache prevention) - For mild to moderate MCCLELLAND Naproxen sodium 550mg twice a day as needed Vistaril 25 - 50mg twice a day as needed Tests: EEG Potential - MRI brain with and without contrast SWI sequence to evaluate for blood LABS: Thyroid function studies Consultations: Lumbar puncture for close opening pressure Follow-up with Dr. Morales in 8-10 weeks documented in this encounter Progress Notes Deanna Morales MD - 10/26/2016 1:00 PM EDT Neurology Headache Clinic Initial Consultation Patient name: Braulio Garcia Date of : 1955 PCP: Renee Corcoran APRN CC: Headache - change in pattern I have been asked to see Braulio Garcia in consultation by Renee Corcoran for his c/o Headaches in my capacity as Headache Medicine Specialist. HPI: Braulio Garcia is a 60 y.o. right handed male with Atrial fibrillation status post ablation xc 4, cerebral cavernoma, dizziness, hypertension, palpitations presenting with his Angela for evaluationand management of his headaches. Patient was seen at [facility] by Dr. Le for MCCLELLAND, weakness and convulsions. He was placed on gabapentin and is using magnesium . He was then started on amitriptyline. He is an active person, runs marathons and is very active. 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 He is very clear about the fact [...] better, but not resolved. He went to [facility] for evaluationand management. He can [...] he was having. 156/100 BP. At the [facility] ED EKG, CXR, Cervical spine [...] up to now; also an evaluation in [place] is impending. With that in mind, I [...] but demyelination is a possibility. Neurosurgery 10/11/2016 [facility] MRI scan, and this revealed 2 cavernomas that reportedly had not been seen in a prior MRI 10 years ago One would not operate on these unless there were a significant symptom. Radiosurgery has been very controversial in the treatment of these as there was some concern that radiosurgery may actually increase bleeding rates. No thyroid function studies No LP Medications tried: Patient reports that he is very sensitive to medications Gabapentin (SE sedation and feeling spacy) Propranolol Metoprolol Verapamil Diltiazem Amitriptyline (SE vivid dreams - felt like an incredible adventure and then woke up after 10 minutesand was very wide awake - this was a pattern) (SE mood swings) Lisinopril Trazodone (SE vivid dreams - felt like [...] NS/PO Maxalt/Rizotriptan Axert/Almotriptan Amerge/Naratriptan Frova/Frovatriptan Migranal/DHE Nasal [place] DHE injections Vistaril/Hydroxizine/Axert Baclofen No h/o renal stones or asthma Other providers: [facility] Cardiology Dr. Velasco Past Medical History: Past Medical History: Diagnosis Date ??? Actinic [...] short term memory ??? Palpitations ??? Tachycardia Medications: Current Outpatient Prescriptions Medication Sig Dispense Refill ??? multivitamin (THERAGRAN) Tablet Take 1 tablet [...] Fruit patient reported ??? Cephalexin Nausea Only Family History: Family History Problem Relation Age of Onset ??? Myocardial Infarction Father ??? Myocardial Infarction Maternal Uncle ??? Myocardial Infarction Paternal Grandmother ??? Heart Failure Paternal Grandfather ??? Migraines Daughter Social History: Social History Social History ??? Marital status: Spouse name: [place] ??? Number of children: 2 ??? Years of education: N/A Occupational History ??? [employer]odian Social History Main Topics ??? Smoking status: Former Smoker ??? Smokeless tobacco: Never Used ??? Alcohol use Yes Comment: weekend wine ??? Drug use: No ??? Sexual activity: Yes Other Topics Concern ??? Not on file Social History Narrative Review of systems: Constitutional: No fevers or chills Eyes: No vision changes, no diplopia, no blurry vision ENT: No rhinorrhea or pharyngitis, no meningismus CV: No chest pain or palpitations Resp: No cough, no shortness of breath GI: No nausea, vomiting, diarrhea or constipation : No dysuria, no incontinence Heme: No bleeding or bruising Endo: No diabetes or thyroid disease Neuro: See HPI Psych: No depression, normal sleep [x] Review of systems otherwise negative Physical Exam: Vitals: 10/26/16 1236 BP: (!) 137/95 Pulse: 80 HEENT: oral mucosa moist, no thrush, no carotid bruits, no thyromegaly, no lymphadenopathy Bilateral occipital nerve tenderness to palpation Heart: RRR S1S2 no murmur Lungs: CTAB symmetric expansion Ext: no edema, adequate pulses Neuro exam: MSE: alert, oriented to person, place, time, situation, follows simple and complex commands, speech fluent with no dysarthria, able to repeat a sentence, names objects. CN: PERRL, no nystagmus, EOMI, visual carlson intact to confrontation, facial sensation intact, no facial droop or asymmetry, tongue protrudes midline, uvula and palate elevate symmetrically, trap symmetric strength bilaterally Fundoscopic examination: crisp optic cups, no AV nicking, venous pulsations b/l Motor: RUE 5/5 throughout LUE 5/5 throughout RLE 5/5 throughout LLE 5/5 throughout Normal bulk and tone No pronator drift Reflexes 2+ bilat biceps, brachioradialis, triceps 2+ bilat patella, achilles downgoing toes bilaterally Sensation: intact light touch Coordination: intact finger nose finger no dysmetria, no tremor Gait: normal stride and arm swing, able to perform heel, toe walk and tandem gait. Negative romberg. Labs: No results found for this or any previous visit (from the past 24 hour(s)). Diagnostic Tests and Imaging: As in HPI Assessment and plan: Braulio Garcia is a 60 y.o. right handed male with Atrial fibrillation status post ablation xc 4, cerebral cavernoma, dizziness, hypertension, palpitations presenting with his Angela for evaluationand management of his headaches. Patient's history and physical exam is concerning for a new daily persistent headache with a migraine phenotype or headache attributed to his cavernous angioma bleeding. He had a large constellation of symptoms with his initial presentation which make it more suspicious for a small bleed rather then just the onset of new daily persistent headache. I would like to review the MRI brain with her neuroradiology and determine I need an SWI sequence to evaluate for the presence of blood. For management of the migraine type symptoms I would like to convert from the lisinopril to candesartan. They are 2 randomized control trials of efficacy for candesartan and management of migraine headaches. For breakthrough headaches I recommend. He will also need a lumbar puncture to evaluate for a close opening and get basic labs. I can do this in my own clinic on one of the Monday LP clinics. I would also like to get an EEG to rule out any seizure-like activity. Thyroid function studies are alsogoing to be drawn to rule out other secondary causes for his headache. # New Daily persistent Headache - migraine without aura phenotype Headache attributed to cavernous angioma - Keep a Headache diary - Labs: TSH, T4 - EEG - Potential - MRI brain with and without contrast SWI sequence to evaluate for blood - Lumbar puncture for close opening pressure - [facility] Glucose, protein, cell count - For Headache Prevention: Lisinopril 5mg daily --> Candesartan 4mg (optimal dose of 16mg daily for headache prevention) - For mild to moderate MCCLELLAND Naproxen sodium 550mg twice a day as needed Vistaril 25 - 50mg twice a day as needed Follow-up with Dr. Morales in 8-10 weeks Deanna Morales MD [facility] Neurology This note was created using [employer] speech recognition software. Please pardon any errors. documented in this encounter Plan of Treatment Upcoming Encounters Date Type Specialty Care Team Description 02/14/2022 Office Visit Dermatology Ace Hardwick MD [facility] DR [address] [facility]STELL[address] OGY [place], [place] [address] (Wo rk) 03/08/2022 Appointment Radiology Oscar De Oliveira MD [facility] NEUROSURGERY [place], [place] [address] (Wo rk) 03/08/2022 Office Visit Neurosurgery Oscar De Oliveira MD [facility] NEUROSURGERY [place], [place] [address] (Wo rk) 06/23/2022 Office Visit Neurology Annetta Hernandez APRN [facility] L[facility] Neurology [place], [place] [address] (Wo rk) documented as of this encounter Procedures Procedure Name Priority Date/Time Associated Diagnosis Comme nts TSH Routine 10/26/2016 2:56 PM NDPH (new daily Result s for this EDT persistent headache) procedu re are in the results section . T4, FREE Routine 10/26/2016 2:56 PM NDPH (new daily Result s for this EDT persistent headache) procedu re are in the results section . documented in this encounter Results Lumbar Puncture [...] . Blood Loss <1cc Deanna Morales MD [facility] Neurology The patient was approached by Dr. Darius Morales about participating in the CSF Biospecimen and Data Bank, a single institution study at [facility] with Drs. Giovanny cM and Abbey Guzman as lead investigators. After meeting inclusion and exclusion cr iteria, subjects will provide witnessed informed consent. All questions from the patient regarding this study have been a nswered. The consent form has [facility]-approval date of 03/06/2015. ?? All study-related procedures were comple maria guadalupe after signing the ICF. A copy of the ICF has been provided to the patient. The CSF sample was collected by Dr. Maritza Morales and properly stored and sent to the CSF banking Lab. Deanna Morales MD PROCEDURE/MINOR SURGICAL ORD ERABLES Miscellaneous Lab request (12/09/2016 8:50 AM EDT) Patholo gist Method Time Signature [facility] Lab Request SHALA SAMSON Result received in [facility] LABORATORY Specimen (Source) Anatomical Collection Method Collection Time Re ceived Time Location / / Volume Laterality Cerebrospinal fluid 12/09/2016 8:50 12/09 sample (specimen) AM EDT 9:44 AM ED T Resulting Agency Comment Spec In Lab Deanna Morales MD HEMATOLOGY ORDERABLES Performing Organization Address City/[facility]/[place] [address] Protein Level CSF (12/09/2016 8:50 AM EDT) athologist Signature T Protein, CSF 35 15 - 45 [facility] mg[facility]dL [facility] LABORATORY Xanthochromia Neg [facility] LABORATORY Specimen (Source) Anatomical Collection Method Collection Time Re ceived Time Location / / Volume Laterality Cerebrospinal fluid 12/09/2016 8:50 12/09 sample (specimen) AM EDT 9:44 AM ED T Resulting Agency Comment Spec In Lab Deanna Morales MD BODY FLUIDS AND STOOLS ORDER LEONARDA Performing Organization Address City/[facility]/ZIP Code Phon e Number [address] Glucose Level CSF (12/09/2016 8:50 AM EDT) athologist Signature Glucose, CSF 59 mg/dL [facility] LABORATORY Comment: CSF at equilibrium equals appro ximately 60-80% of plasma glucose. Specimen (Source) Anatomical Collection Method Collection Time Re ceived Time Location / / Volume Laterality Cerebrospinal fluid 12/09/2016 8:50 12/09 sample (specimen) AM EDT 9:44 AM ED T Resulting Agency Comment Spec In Lab Deanna Morales MD BODY FLUIDS AND STOOLS ORDER LEONARDA Performing Organization Address City/[facility]/ZIP Code Phon e Number [address] EEG INNC. RECORDING AWAKE AND ASLEEP, W. HYPERVENT/PHOTIC STIMU PRFM (11/11/2016 5:04 PM EDT) Narrative Satish Peng Jr., MD - 11/11/2016 5: 04 PM Leslee Garcia MD ? 11/11/2016 10:21 AM [facility] Department of Neurology Out Patient EEG Report Name of the Patient: ??Braulio Garcia Date of : ?1955 Date of Service: ?11/10/2016 Referring physician: ?Cyndi Morales MD BRIEF HISTORY: Braulio Garcia is a 60 y.o. year old pa tient with persistent headache. MEDICATIONS: Current Outpatient Prescriptions Medication Sig Dispense Refill ? ? levETIRAcetam (KEPPRA) 500 mg Tablet Take 1 tablet by mouth 2 times daily as needed. 30 tablet 0 ? ? multivitamin (THERAGRAN) Tablet Take 1 tablet by mouth daily. ? naproxen sodium (ANAPROX DS) 550 mg Tablet Take 1 tablet by mouth 2 times daily as needed (Mild to M oderate Headache). Can be taken with or without Vistaril 60 tablet 12 ? ? DILTiazem (CARDIZEM) 30 mg Tablet Take 60 mg by mouth 2 times daily. ? lisinopril (PRINIVIL;ZESTRIL) 5 mg Tablet Take 5 mg by mouth daily. ? aspirin 81 mg EC tablet Take 81 mg by mouth daily. ? ascorbic acid (VITAMIN C WITH NICKO HIPS) 500 mg tablet ? No current facility-administered medicat ions for this encounter. ?? METHODS: A 21 channel digitized electroencephalog emeka was performed in the [facility] Clinical Neurophysiology Laboratory. The 10/20 international system of electrode placement was used and bipolar and referential electrode montag es were recorded. ??In addition to EEG the patient was monitore d for EKG and lateral/vertical eye movements. Video wa s recorded during the session. The duration of the recording w as 30 minutes. SETTLEMENT WORKER'S REPORT: Performed by: DT Patient was sleep deprived. Sleep was not attained. Photic stimulation was performed. Hyperventilation was not performed. Effo rt was was not adequate. Movement and other artifact was not sign ificant. Comments:none ELECTROENCEPHALOGRAPHER'S REPORT: Background The background is symmetric, exhibiting a moderate amplitude 9-10 Hz posterior dominant rhythm with lower- amplitude beta frequencies anteriorly. ??With eye openi ng the background activity changed to a low voltage mixture of alph a, beta, and occasional theta range frequencies. Sleep No electrographic evidence of stage II s leep was seen. Hyperventilation Hyperventilation was not performed. Photic Stimulation Photic stimulation using a step-escobedo inc rease in photic frequency varying from 1-21Hz was performed with b ilateral driving responses without the appearance of abno rmal activity. Abnormal EEG Activity None EKG The precordial tracing revealed a regula r rhythm with physiologic variation PRIOR EEG: No previous EEG reports were readily lalo ilable. INTERPRETATION: This EEG is normal during the awake stat e as well as during the activation procedures of hyperventilatio n and photic stimulation. CLINICAL CORRELATION: This awake only routine EEG is normal. ? ? Leslee Yarbrough MD Epilepsy Fellow #[id number] 11/11/2016 10:20 AM. Deanna Morales MD NEUROLOGY ORDERABLES T4, free (10/26/2016 2:56 PM EDT) athologist Signature Free T4 1.04 0.93 - 1.70 HSALA SAMSON ng/dL [facility] LABORATORY Specimen Anatomical Collection Method Collection Time Receive d Time (Source) Location / / Volume Laterality Blood specimen 10/26/2016 2:56 PM 017 3:08 (specimen) EDT PM EDT Resulting Agency Comment Spec In Lab Deanna Morales MD CHEMISTRY ORDERABLES Performing Organization Address City/State/[place] [address] TSH (10/26/2016 2:56 PM EDT) P athologist Signature TSH 2.83 0.27 - 4.20 SHALA SAMSON mcIU/mL [facility] LABORATORY Specimen Anatomical Collection Method Collection Time Receive d Time (Source) Location / / Volume Laterality Blood specimen 10/26/2016 2:56 PM 017 3:08 (specimen) EDT PM EDT Resulting Agency Comment Spec In Lab Deanna Morales MD CHEMISTRY ORDERABLES Performing Organization Address City/State/ZIP Code Phon e Number [place] [phone] documented in this encounter Visit Diagnoses Diagnosis NDPH (new daily persistent headache) - P rimary New daily persistent headache NDPH (new daily persistent headache) New daily persistent headache Intractable chronic migraine without aur a and with status migrainosus Chronic migraine without aura, with intr actable migraine, so stated, with status migrainosus NDPH (new daily persistent headache) New daily persistent headache documented in this encounter Care Teams Field Artillery Basic Relationship Specialty Start Date End Date Renee Corcoran APRN PCP - General Family Medicine 02/24/16 04/10/18 documented as of this encounter
--- OUTSIDE RECORDS SUMMARY | 2022-02-07 01:37 | XMS_ITS | Encounter Summary ---
:1955 Author Organization [place] [place] [address] Care Team Providers Name Role Phone RusscherylRenee APRN Primary Care Provider Reason for Visit Reason Onset Date Comments Follow-up 02/27/2017 Encounter Details Date Type Department Care Team Description 02/27/2017 [address]phone [address]rology [address] [facility] Dayanna Mcdaniel, [place] [phone] Social History Tobacco Use Types Packs/Day [...] this encounter Miscellaneous Notes Telephone Encounter - Dayanna Mcdaniel RN - 02/27/2017 8:54 AM EDT Caller: Braulio, verified name/ Reason for call: update on his headaches from ONB 02/09 Braulio reports continues to experience on top of his head an 8 over 1/10 scale. Does not feel his ONB helped What helps: Listening to music, doing nothing What makes it worse: activity Denies any medicines work ofr his headaches Will continue to do the headache log sheet Follow-up appointment [facility] for [facility] Morales. Forward this information to Dr Morales for review. documented in this encounter Plan of Treatment Upcoming Encounters Date Type Specialty Care Team Description 02/14/2022 Office Visit Dermatology Ace Hardwick MD [facility] [address] [place], [place] [address] (Wo rk) 03/08/2022 Appointment Radiology Oscar De Oliveira MD [facility] NEUROSURGERY [place], [place] [address] (Wo rk) 03/08/2022 Office Visit Neurosurgery Oscar De Oliveira MD [facility] NEUROSURGERY [place], [place] [address] (Wo rk) 06/23/2022 Office Visit Neurology Annetta Hernandez APRN [facility] DRIVE Neurology [place], [place] [address] (Wo rk) documented as of this encounter Visit Diagnoses Not on filedocumented in this encounter Care Teams High Speed Operator Relationship Specialty Start Date End Date Renee Corcoran, CONTACT CENTER ASSOCIATE PCP - General Family Medicine 02/24/16 04/10/18 documented as of this encounter
--- OUTSIDE RECORDS SUMMARY | 2022-02-07 01:37 | XMS_ITS | Encounter Summary ---
:1955 Author Organization [facility] [place] [address] Care Team Providers Name Role Phone Renee Corcoran APRN Primary Care Provider Reason for Visit Reason Onset Date Comments Follow-up 03/08/2017 Encounter Details Date Type Department Care Team Description 03/08/2017 Telephone Neurology at [facility] Deanna Morales MD Follow-up [facility] [place] [address] NEUROLOGY DEPT [phone] [place], [place] [address] (Wo rk) Social History Tobacco [...] Telephone Encounter - Nicole Black RN - 03/08/2017 3:18 PM EDT OUTGOING TELEPHONE CALL Last Appointment: 02/09/17 Next Appointment: 04/11/17 Provider: Dr. Morales Reason for Call: Post Procedure Update Date of Procedure: 02/09/17 Type of Procedure: ONB Any Improvement Post Procedure: headache dulled x 1 week Any s/s of infection: none Anything additional to report today: Patient states ONB worked for about 1 week or so His severe, obnoxious h/a is returning Five days per week he is having the 7-8/10 h/a Can get worse later in the day if he [id number] He wanted to check in to make sure he is not doing any damage to himself by the way he is handling these headaches. He doesn't think he is doing any damage to himself but he spoke to the covering nurselast week and he states she did not agree. He states he sets 2-3 daily activities for each morning By middle of the day he has to stop chores as the h/a begins to increase He will lay down in a lawn chair outside in the sun with music playing, as a sort of meditation or relaxation He is finding this is helping him a lot He would like to avoid having ONBs regularly as long as he is able to manage the pain Says he has times where he feels like he is not really present in situations but thinks this may be due to the migraine increasing, which makes sense. Notified patient that his migraine treatment is perfect. There is no harm in avoiding medications or injections, however it may make him cranky or frustrated. Reminded him that he can come in any time for an injection and can call any time to discuss what is working and what is not. His next appointment in on 04/04 for his second Botox injections. Plan/Intervention/Follow Up - Report forwarded to Dr. Morales as FYI. Current Medications: Outpatient Prescriptions Marked as Taking for the 03/08/17 encounter (Telephone) with Deanna Morales MD Medication [...] tablet Take 81 mg by mouth daily. Allergies Allergen Reactions ??? Food Extracts Hives Fresh Fruit patient reported ??? Cephalexin Nausea Only Telephone Encounter - Nicole Black RN - 03/08/2017 1:09 PM EDT Patient called and left a message on the triage line stating he would like to check in. documented in this encounter Plan of Treatment Upcoming Encounters Date Type Specialty Care Team Description 02/14/2022 Office Visit Dermatology Ace Hardwick MD [facility] DR JENNIFER CASTELLANO-DERMAT OGY [place] [id number] (Wo rk) 03/08/2022 Appointment Radiology Oscar De Oliveira MD [facility] NEUROSURGERY [place], [place] [address] (Wo rk) 03/08/2022 Office Visit Neurosurgery Oscar De Oliveira MD [facility] NEUROSURGERY [place], [place] [address] (Wo rk) 06/23/2022 Office Visit Neurology Annetta Hernandez APRN [facility] [address] Neurology [place], [place] [address] (Wo rk) documented as of this encounter Visit Diagnoses Not on filedocumented in this encounter Care Teams Circuit Board Drafter Relationship Specialty Start Date End Date Renee Corcoran APRN PCP - General Family Medicine 02/24/16 04/10/18 documented as of this encounter
--- OUTSIDE RECORDS SUMMARY | 2022-02-07 01:37 | XMS_ITS | Encounter Summary ---
:1955 Author Organization [facility] [place] [address] Care Team Providers Name Role Phone Renee Corcoran APRN Primary Care Provider Reason for Visit Reason Onset Date Comments Other 12/05/2016 medication update Encounter Details Date Type Department Care Team Description 12/05/2016 Telephone [place]rology [place] [facility] Deanna Morales MD Other (medication [facility] upd ate) [place] [address] NEUROLOGY DEPT [phone] [place] [id number] (Wo rk) Social History Tobacco Use Types [...] Telephone Encounter - Nicole Black RN - 12/05/2016 12:25 PM EDT Last Appointment: 10/26/16 Next Appointment: 12/09/16 Provider: Dr. Morales Reason for Call: Medication Update Patient report: Name of Medication: desvenlafaxine 50 mg daily Results: had a couple euphoric days Side Effects: having trouble sleeping at night and is waking every five hours or so Any Additional Information to Relay: Patient states he has a strong headache this morning. He is coming in for an appointment with Dr. Morales on Monday and wonders if he is supposed to take all his medications that morning. He will continue his desvenlafaxine through the week and see if his sleep improves. Patient understands that he is to take all of his medications on Monday before his LP and will eat breakfast. Plan/Intervention/Follow Up - Report forwarded to Dr. Morales as FYI. Outpatient Prescriptions Marked as Taking for the 12/05/16 encounter (Telephone) with Deanna Morales MD Medication Sig Dispense Refill ??? lisinopril (PRINIVIL;ZESTRIL) 5 mg Tablet Take [...] [facility] DR JENNIFER CASTELLANO-DERMAT OLOGY [place], [place] [address] (Jewell rothman) 03/08/2022 Appointment Radiology Oscar De Oliveira MD [facility] DR GAXIOLA [place], [place] [address] (Wo rk) 03/08/2022 Office Visit Neurosurgery Oscar De Oliveira MD [facility] NEUROSURGERY [place], [place] [address] (Wo rk) 06/23/2022 Office Visit Neurology Annetta Hernandez APRN [facility] Neurology [place], [place] [address] (Wo rk) documented as of this encounter Visit Diagnoses Not on filedocumented in this encounter Care Teams Dials Inspector Relationship Specialty Start Date End Date Renee Corcoran APRN PCP - General Family Medicine 02/24/16 04/10/18 documented as of this encounter
--- OUTSIDE RECORDS SUMMARY | 2022-02-07 01:37 | XMS_ITS | Encounter Summary ---
:1955 Author Organization [facility] [place] [address] Care Team Providers Name Role Phone Renee Corcoran APRN Primary Care Provider Reason for Referral Diagnostic Test (Routine) - Closed Specialty Diagnoses / Procedures Referred By Contact Refer red To Contact Radiology Diagnoses NDPH (new daily persistent headache) Deanna Morales MD [facility] Rad Ct Scan Procedures CT [place] w Contrast (Generic) [facility] [place] [address] [place] [address] Referral ID Status Reason Start Date Expiration Date Visits V isits Requested Authorized [id number] Closed Specialty 10/31/2016 12/29/2016 1 1 Service Requested Reason for Visit Diagnostic Test (Routine) - Closed Specialty Diagnoses / Procedures Referred By Contact Refer red To Contact Radiology Diagnoses NDPH (new daily persistent headache) Deanna Morales MD [facility] Rad Ct Scan Procedures CT [place] w Contrast (Generic) [facility] [place] [address] [place] [address] Referral ID Status Reason Start Date Expiration Date Visits V isits Requested Authorized [id number] Closed Specialty 10/31/2016 12/29/2016 1 1 Service Requested Encounter Details Date Type Department Care Team Description 11/10/[address] [facility] Deanna Morales NDPH (new daily [facility] persistent headache) [place], [place] CENTER [address] NEUROLOGY DEPT [phone] [place] [address] Social History Tobacco Use Types Packs/Day Years [...] Sig Dispensed Refills Start Date End Date multivitamin (THERAGRAN) Take 1 tablet by 0 Tablet mouth daily. DILTiazem (CARDIZEM) 30 Take 60 mg by mouth 0 mg Tablet 2 times daily. hydrOXYzine (VISTARIL) 25 Take 25 mg by mouth 0 0 10/27/2016 12/09/2016 mg Capsule 2 times daily as needed. Reported on 12/05/2016 candesartan (ATACAND) 8 Take 1 tablet by 30 tablet 3 201611/28/2016 mg Tablet mouth daily. levETIRAcetam (KEPPRA) Take 1 tablet by 30 tablet 0 017 12/09/2016 500 mg Tablet mouth 2 times daily as needed. naproxen sodium (ANAPROX Take 1 tablet by 60 tablet 12 10/2611/29/2017 DS) 550 mg Tablet mouth 2 times daily as needed (Mild to Moderate Headache). Can be taken with or without Vistaril lisinopril Take 5 mg by mouth 0 2016 (PRINIVIL;ZESTRIL) 5 mg daily. Tablet aspirin 81 mg EC tablet Take 81 mg by mouth 0 02/11/2020 daily. documented as of this encounter Plan of Treatment Upcoming Encounters Date Type Specialty Care Team Description 02/14/2022 Office Visit Dermatology Ace Hardwick MD [facility] DR JENNIFER CASTELLANO-DERMAT OLOGY [place], [place] [address] (Wo rk) 03/08/2022 Appointment Radiology Oscar De Oliveira MD [facility] NEUROSURGERY [place], [place] [address] (Wo rk) 03/08/2022 Office Visit Neurosurgery Oscar De Oliveira MD [facility] NEUROSURGERY [place], [place] [address] (Wo rk) 06/23/2022 Office Visit Neurology Annetta Hernandez APRN [facility] [address] Neurology [place], [place] [address] (Wo rk) documented as of this encounter Procedures Procedure Name Priority Date/Time Associated Diagnosis Comme nts CT [place] Routine 11/10/2016 1:15 PM NDPH (new daily Results for this W CONTRAST EDT persistent headache) procedu re are in the results section. documented in this encounter Results CT [place] w Contrast (Generic) (11/10/2016 1:15 PM EDT) Anatomical Region Laterality Modality Neck, Head Computed Tomography Specimen (Source) Anatomical Location Collection Method / Collectio n Time Received Time / Laterality Volume Addenda Addendum by Miguelangel Mendoza MD on 10/2016 2:08 PM EDT ADDENDUM #1 MIP images were performed. 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 TECHNIQUE: CT angiogram of the [place] was done following intravenous administration of 65 mL of Omnipaque 350 . Data was transferred workstation for postprocessing and volume rendering. COMPARISON: MRI of the brain dated 2016 FINDINGS: Examination shows normal vertebral basil ar and carotid systems. The posterior communicating arteries are well seen. Th ere are no indications of aneurysm, vascular malformation, spasm, arteriopat hy or other significant abnormality. Vessel caliber appears to be preserved t hroughout. In particular, there are no signs of high flow brainstem vascular ma lformation Impression Normal CT angiogram of the [place] Addendum by Miguelangel Mendoza MD on 10/2016 9:37 AM EDT ADDENDUM #1 MIP images were performed. 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 TECHNIQUE: CT angiogram of the [place] was done following intravenous administration of 65 mL of Omnipaque 350 . Data was transferred workstation for postprocessing and volume rendering. COMPARISON: MRI of the brain dated 2016 FINDINGS: Examination shows normal vertebral basil ar and carotid systems. The posterior communicating arteries are well seen. Th ere are no indications of aneurysm, vascular malformation, spasm, arteriopat hy or other significant abnormality. Vessel caliber appears to be preserved t hroughout. In particular, there are no signs of high flow brainstem vascular ma lformation Impression Normal CT angiogram of the [place] Narrative 11/10/2016 2:02 PM EDT EXAMINATION: CT [place] W CONTRAST (GENERIC) CLINICAL HISTORY: Patient with a history of brainstem cavernoma as well as new onset headaches evaluation for aneurysm or vasculopathy. TECHNIQUE: CT angiogram of the [place] was done following intravenous administration of 65 mL of Omnipaque 350 . Data was transferred workstation for postprocessing and volume rendering. COMPARISON: MRI of the brain dated 2016 FINDINGS: Examination shows normal vertebral basil ar and carotid systems. The posterior communicating arteries are well seen. Th ere are no indications of aneurysm, vascular malformation, spasm, arteriopat hy or other significant abnormality. Vessel caliber appears to be preserved t hroughout. In particular, there are no signs of high flow brainstem vascular ma lformation Impression Normal CT angiogram of the [place] Procedure Note Miguelangel Mendoza MD - 11/10/2016Format ting of this note might be different from the original. EXAMINATION: CT [place] W CONTR AST (GENERIC) CLINICAL HISTORY: Patient with a history of brainstem cavernoma as well as new onset headaches evaluation for aneurysm or vasculopathy. TECHNIQUE: CT angiogram of the [place] was done following intravenous administration of 65 mL of Omnipaque 350 . Data was transferred workstation for postprocessing and volume rendering. COMPARISON: MRI of the brain dated 2016 FINDINGS: Examination shows normal vertebral basil ar and carotid systems. The posterior communicating arteries are well seen. Th ere are no indications of aneurysm, vascular malformation, spasm, arteriopat hy or other significant abnormality. Vessel caliber appears to be preserved t hroughout. In particular, there are no signs of high flow brainstem vascular ma lformation Impression Normal CT angiogram of the [place] Deanna Morales MD IMG CT ORDERABLES documented in this encounter Visit Diagnoses Diagnosis NDPH (new daily persistent headache) New daily persistent headache documented in this encounter Administered Medications Inactive Administered Medications - up to 3 most recent administrations Medication Order MAR Action Action Date Dose Rate Site iohexol (OMNIPAQUE) 350 mg/mL Given 11/10/2016 1:08 PM EDT 22,75 0 mg solution 22,750 mg 22,750 mg (65 mL), Intravenous, ONCE PRN, 1 dose, Starting on Kiah 11/10/16 at 1308, Until Kiah 11/10/16 at 1308, Per Protocol, Warning Vesicant/Irritant Medication , Routine documented in this encounter Care Teams Transit Operator Relationship Specialty Start Date End Date Renee Corcoran APRN PCP - General Family Medicine 02/24/16 04/10/18 documented as of this encounter
--- OUTSIDE RECORDS SUMMARY | 2022-02-07 01:37 | XMS_ITS | Encounter Summary ---
:1955 Author Organization [place] [address] Care Team Providers Name Role Phone Jewell Renee Christopher APRN Primary Care Provider Reason for Referral Diagnostic Test (Routine) - Closed Specialty Diagnoses / Procedures Referred By Contact Refer red To Contact Radiology Diagnoses NDPH (new daily persistent headache) Deanna Morales MD [facility] Rad Ct Scan Procedures CT [place] w Contrast (Generic) [facility] [place] [address] [place] [address] Referral ID Status Reason Start Date Expiration Date Visits V isits Requested Authorized [id number] Closed Specialty 10/31/2016 12/29/2016 1 1 Service Requested Encounter Details Date Type Department Care Team Description 10/27/[address] [facility] Deanna Morales MD [facility] [place] [address] NEUROLOGY DEPT [phone] [place], [place] [address] (Wo rk) Social History Tobacco [...] Telephone Encounter - Nicole Black RN - 10/28/2016 11:13 AM EDT Called patient and informed him of results and recommendations as noted by Dr. Morales. Patient understands instructions and agrees with this plan. Transferred him to [facility] to schedule the imaging. Telephone Encounter - Deanna Morales MD - 10/27/2016 5:03 PM EDT I spoke with neuroradiology and reviewed the imaging that was provided for the patient. It does not appear that there has been any recent bleeding because we would see more edema in the region. There is some more white matter changes that were previously seen on CT scan in 2006. I would like to evaluate the blood vessels. CTA with contrast to evaluate for vascular abnormalities. CTA head ordered Deanna Morales MD [facility] Neurology documented in this encounter Plan of Treatment Upcoming Encounters Date Type Specialty Care Team Description 02/14/2022 Office Visit Dermatology Ace Hardwick MD [facility] DR JENNIFER CASTELLANO-DERMAT OLOGY [place], [place] [address] (Wo stephan) 03/08/2022 Appointment Radiology Oscar De Oliveira MD [facility] NEUROSURGERY [place], [place] [address] (Jewell rothman) 03/08/2022 Office Visit Neurosurgery Oscar De Oliveira MD [facility] NEUROSURGERY [place], [place] [address] (Wo rk) 06/23/2022 Office Visit Neurology Annetta Hernandez APRN [facility] [address] Neurology [place], [place] [address] (Wo rk) documented as of this encounter Results CT [place] w Contrast (Generic) (11/10/2016 1:15 PM EDT) Anatomical Region Laterality Modality Neck, Head Computed Tomography Specimen (Source) Anatomical Location Collection Method / Collectio n Time Received Time / Laterality Volume Addenda Addendum by Miguelangel Mendoza MD on 10/2016 2:08 PM EDT ADDENDUM #1 MIP images were performed. ORIGINAL REPORT EXAMINATION: CT [place] W CONTR AST (GENERIC) CLINICAL HISTORY: Patient with a history of brainstem cavernoma as well as new onset headaches evaluation for aneurysm or vasculopathy. TECHNIQUE: CT angiogram of the [place] was done following intravenous [...] lformation Impression Normal CT angiogram of the [place] Addendum by Miguelangel Mendoza MD on 10/2016 9:37 AM EDT ADDENDUM #1 MIP images were performed. ORIGINAL REPORT EXAMINATION: CT [place] W CONTR AST (GENERIC) CLINICAL HISTORY: Patient with a history of brainstem cavernoma as well as new onset headaches evaluation for aneurysm or vasculopathy. TECHNIQUE: CT angiogram of the [place] was done following intravenous [...] lformation Impression Normal CT angiogram of the [place] Narrative 11/10/2016 2:02 PM EDT EXAMINATION: CT [place] W CONTRAST (GENERIC) CLINICAL HISTORY: Patient with a history of brainstem cavernoma as well as new onset headaches evaluation for aneurysm or vasculopathy. TECHNIQUE: CT angiogram of the [place] was done following intravenous [...] lformation Impression Normal CT angiogram of the [place] Procedure Note Miguelangel Mendoza MD - 11/10/2016Format ting of this note might be different from the original. EXAMINATION: CT [place] W CONTR AST (GENERIC) CLINICAL HISTORY: Patient with a history of brainstem cavernoma as well as new onset headaches evaluation for aneurysm or vasculopathy. TECHNIQUE: CT angiogram of the [place] was done following intravenous [...] lformation Impression Normal CT angiogram of the [place] [facility] Deanna Morales MD IMG CT ORDERABLES documented in this encounter Visit Diagnoses Diagnosis NDPH (new daily persistent headache) New daily persistent headache NDPH (new daily persistent headache) New daily persistent headache documented in this encounter Care Teams Physician Liaison Relationship Specialty Start Date End Date Renee Corcoran, PROCUREMENT AGENT PCP - General Family Medicine 02/24/16 04/10/18 documented as of this encounter
--- OUTSIDE RECORDS SUMMARY | 2022-02-07 01:37 | XMS_ITS | Encounter Summary ---
:1955 Author Organization [facility] [place] [address] Care Team Providers Name Role Phone Renee Corcoran APRN Primary Care Provider Reason for Visit Reason Onset Date Comments Follow-up 01/11/2017 Encounter Details Date Type Department Care Team Description 01/11/2017 Telephone [place] [facility] [place]anna Morales MD Follow-up [facility] [place] [address] NEUROLOGY DEPT [phone] [place], [place] [address] (Wo rk) Social History Tobacco [...] Telephone Encounter - Nicole Black RN - 01/11/2017 10:05 AM EDT Reason for call: Medication changes Patient report: Spoke with patient and he states he ran out of his depakote while he was on vacation and decided notto restart it. He has been struggling with the medication side effects and he & his have had a long discussion and have decided that Botox is the way to go. He understands that he will not have immediate relief from the Botox but feels that it is the best course for him due to his sensitivityto medications. Plan/Follow Up: Offered botox appointment with Dr. Morales for next Monday afternoon botox clinic and he accepted. FYI sent to Dr. Morales Telephone Encounter - Za Garrido - 01/11/2017 8:08 AM EDT Caller: Braulio If not Pt / Relation to pt: Best time to reach caller: anytime after 2:30 Before 2:30pm - Informed caller that nurse will call back by the end of the day Best number to reach caller: [phone] Reason for call: Patient is now back from his vacation and is interested in discussing starting botox clinics here. Please call and advise. documented in this encounter Plan of Treatment Upcoming Encounters Date Type Specialty Care Team Description 02/14/2022 Office Visit Dermatology Ace Hardwick MD [facility] DR JENNIFER CASTELLANO-DERMAT [place]LOG[place] [id number] (Wo rk) 03/08/2022 Appointment Radiology Oscar De Oliveira MD [facility] NEUROSURGERY [place], [place] [address] (Wo rk) 03/08/2022 Office Visit Neurosurgery Oscar De Oliveira MD [facility] NEUROSURGERY [place], [place] [address] (Wo stephan) 06/23/2022 Office Visit Neurology Annetta Hernandez APRN [facility] Neurology [place], [place] [address] (Wo rk) documented as of this encounter Visit Diagnoses Not on filedocumented in this encounter Care Teams Litigation Partner Relationship Specialty Start Date End Date Renee Corcoran APRN PCP - General Family Medicine 02/24/16 04/10/18 documented as of this encounter
--- OUTSIDE RECORDS SUMMARY | 2022-02-07 01:37 | XMS_ITS | Encounter Summary ---
:1955 [place] [address] Care Team Providers Name Role Phone Danish Cao DO Primary Care Provider Encounter Details Date Type Department Care Team Description 07/23/2013 Hospital Encounter Non-Invasive Cardiology CLINIC, CONV Syncope Lab Manny Dempsey MD [address] [place], [place] [id number] [place] [address] Social History Tobacco Use Types Packs/Day [...] Office Visit Dermatology Ace Hardwick MD [facility] [address] JENNIFER CASTELLANO-DERMAT [facility]LOGY [place], [place] [address] (Wo rk) 03/08/2022 Appointment Radiology Oscar De Oliveira MD [facility] NEUROSURGERY [place], [place] [address] (Wo rk) 03/08/2022 Office Visit Neurosurgery Oscar De Oliveira MD [facility] NEUROSURGERY [place], [place] [address] (Wo rk) 06/23/2022 Office Visit Neurology Annetta Hernandez APRN [facility] [address] Neurology [place], [place] [address] (Wo rk) documented as of this encounter Procedures Procedure Name Priority Date/Time Associated Diagnosis Comme nts TILT TABLE TEST Routine 07/23/2013 8:34 AM Syncope Result s for this EST procedure are i n the results section. documented in this encounter Results EP Tilt Table Test (07/23/2013 8:34 AM EST) Specimen (Source) Anatomical Location Collection Method / Collectio n Time Received Time / Laterality Volume Narrative Kalpesh Hunt MD - 07/25/2013 3:38 PM EST ELECTROPHYSIOLOGY OFFICE NOTE/TILT TEST NAME: ??Braulio Garcia DATE OF : 1955 Problem List: 1. Paroxysmal atrial fibrillation with a rapid ventricular response (up to 147 beats per minute). a. Status post Afib ablations 08/2008, , 05/2011, and 09/[address] Rex Hendricks at [facility]. b. Holter 07/2007 demonstrated frequent APBs (1626 in 47 hours), and 27 runs of SVT up to 18 beats; he only had 92 VPBs and no VT during the recording, and no symptoms. 2. Recurrent syncope/near-syncope. a. Went to ground 07/2012 and 08/2012, cu tting his head with the first episode; subsequent symptoms have been n ear-syncope at the worst. ??1. Symptoms always occur in the uprig ht position, and are aggravated by stress; typically he has a warning and c an abort the symptoms by slowing down his physical work or sitting down. b. Tilt test 07/23/2013 unremarkable, t ivan his symptoms of ? lightheadedness? (by which he means mental fogginess, weakness, +/- near-syncope) were reproduced near the e nd of the tilt study, on Isuprel 5 mcg/minute IV, with a blood pressure nad ir of 107/66 at that time and a heart rate of 112. 3. Mild cardiomyopathy. a. Stress echo 05/2013 demonstrated an EF of 48%. b. Right bundle branch block. c. Normal stress echo at [facility] 08/2007 (EF 65%). 4. Aortic dilatation, mild. a. Aortic root 4.3 cm by echo, 4.7 cm b y MRI 2008. 5. Peripheral neuropathy. a. Abnormal nerve conduction studies 20 10 (Dr. Link Chaidez); patient has minimal symptoms. b. Autonomic testing at [facility] 04/2010 demonstrated a minimal heart rate respon se to deep breathing (prior catheter ablation in the left atrium izzy r parasympathetic ganglia), Valsalva ratio about 20%, low amplitude skin sympathetic responses in the hands and feet. 6. Chronic headaches, mild. 7. History of basal cell carcinoma. 8. Status post septoplasty, tonsillectom y. 9. Adverse Drug Reactions/Allergies: ami odarone, atenolol, metoprolol (mental fogginess, diarrhea), diltiazem, verapamil, flecainide (psychosis), dofetilide (irritability), fresh fruit (hives). Subjective: Mr. Garcia is a 57-year-old m an seen at the request of Dr. Manny Moore for an opinion about his s yncope and near-syncope. This is his major medical problem at present. He went to ground 07/2012 and 08/2012, within a couple of minutes after working vigorously at his long term job, and then standing in one spot. The first episode caused a cut to his head as he hit a desk on the way down, though he did not have complete syncope. The second episode he had complete synco pe, which he felt was quite brief. More frequently, he has ? lightheadedness? by which he means mental fogginess (he can hear words, but with d iminished comprehension), weakness, and sometimes near-syncope. Th chemo symptoms are worse with stress at work (he admits he is a perfectionist with regard to cleanliness), and always occur in the standing position. H is symptoms improve in the sitting position. He will get these symptoms if he quickly exerts himself, such as running up stairs or doing vigorous shov eling. If he slows down, the symptoms regress. He has no angina or heart failure sympto ms. Since his last ablation, he has had minimal palpitations, perhaps 15 -20 seconds at most in duration, and can go at least a week without any. His review of systems had been positive for reduced energy, but with time off of work his energy seems fine. He is jogging 90 minutes every morning, 5-6 miles on quite hilly terrain. He is planning to go back to work next week. The rest of his systems review is noncontributory except for the problems in the problem list. His father at age 72 from [place]. His mother is alive at age 79. He has two healthy siblings (brothers). He does not smoke, and has one alcoholic drink per week. He does not use recreational drugs. He is , with two daughters ages 2 9 and 31. 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 Medications: aspirin 81 mg daily Objective: Blood pressure 158/103 in the right arm and 155/107 in the left arm, with a pulse of 78 There are no carotid bruits. Bilateral c arotid sinus massage is unremarkable for a cardiodepressor or va sodepressor response. His cardiopulmonary examination is unrem arkable. There is no peripheral edema. The patient was tilted to 80 degrees. In itially, his blood pressure was 177/103 with a pulse of 75. Ten minutes later, his blood pressure was 164/125 with a pulse of 84. Isuprel 1 mcg/minute IV was infused. Ten minutes later, after 20 minutes of tilt total, his blood pressure was 13 5/94 with a pulse of 101. Isuprel was increased to 3 mcg/minute IV . Ten minutes later, after 30 minutes of tilt total, his blood pressur e was 124/80 with a pulse of 112. Isuprel was increased to 5 mcg/minute IV . Ten minutes later, after 40 minutes of tilt total, his blood pressur e was 111/60 with a pulse of 106. A couple of minutes before the end of th e test, he felt like we reproduced his real-life symptoms in that he could hear us but had diminished comprehension, and felt like he needed t o sit down. He had some nausea which he does not get in real life, but in general felt these symptoms mimicked his real-life symptoms quite cl osely. At this time, his blood pressure was 107/66 with a pulse of 112. Assessment: 1. Syncope/near-syncope, always in the u pright position, worse with stress, probably autonomically mediated. His symptoms were reproduced (though he was not syncopal) on tilt honorio ting today, with a blood pressure of 107/66 and pulse of 112 (a mild drop on Isuprel from earlier in the tilt test). This aggressive tilt protoco l did not provoke a true Bezold-Jarisch reflex response. His bloo d pressure was elevated during the test, presumably due to anxiety as he isaac s no history of hypertension that I am aware of. 2. Mild cardiomyopathy. 3. Mild aortic dilatation. 4. Peripheral neuropathy and abnormal au tonomic testing (confounded by his post ablation status, at least the heart rate response to deep breathing). 5. PAF with multiple medication intolera nces and lifestyle impairment, now doing well after his fourth left atrial ablation procedure in 09/2012. Plan: I informed the patient and his wif brisa that his symptoms seem to be annoying, rather than dangerous, and alanna t it was somewhat reassuring that an aggressive tilt protocol did not prov emerita Bezold-Jarisch reflex activation. I encouraged him to keep well hydrated, not go all day without eating, and pay attention to warning symptoms. Barton ly he should lie down with his feet elevated if he feels like he may fa int, but at the least he should sit down and do isometric maneuvers simu ltaneously in his arms and legs, for which I gave him instruction. We also talked about support hose and ab dominal binders, which may not be necessary at this point. We are both rel uctant to consider medication like Florinef or midodrine, given his past hi story of multiple medication intolerances. I feel he is ready to return to work, an d that his risk of injury on the job is low, especially if he pays attent ion to his cues and paces himself from an exertional standpoint. Further follow up with me will be on an as-needed basis. Of the 60-minute office visit, 35 minute s were spent counseling Mr. Garcia and his on the above issues. Kalpesh Hunt [place], [place] ?? [address] - tel [phone] - fax [facility] Copy: MD Danish López MD Michael Hayes, MD William B Jose Procedure Note Kalpesh Hunt MD - 07/25/2013Format ting of this note is different from the original. ELECTROPHYSIOLOGY OFFICE NOTE/TILT TEST NAME: Braulio Garcia DATE OF : 1955 Problem List: 1. Paroxysmal atrial fibrillation with a rapid ventricular response (up to 147 beats per minute). a. Status post Afib ablations 08/2008, , 05/2011, and 09/[address] Rex Hendricks at [facility]. b. Holter 07/2007 demonstrated frequent APBs (1626 in 47 hours), and 27 runs of SVT up to 18 beats; he only had 92 VPBs and no VT during the recording, and no symptoms. 2. Recurrent syncope/near-syncope. a. Went to ground 07/2012 and 08/2012, cu tting his head with the first episode; subsequent symptoms have been near-syncope at the worst. 1. Symptoms always occur in the upright position, and are aggravated by stress; typically he has a warning and can abort the symptoms by slowing down his physical work or sitting down. b. Tilt test 07/23/2013 unremarkable, t ivan his symptoms of ? lightheadedness? (by which he means mental fogginess, weakness, +/- near-syncope) were reproduced near the end of the tilt study, on Isuprel 5 mcg/minute IV, with a blood pressure nad ir of 107/66 at that time and a heart rate of 112. 3. Mild cardiomyopathy. a. Stress echo 05/2013 demonstrated an EF of 48%. b. Right bundle branch block. c. Normal stress echo at [facility] 08/2007 (EF 65%). 4. Aortic dilatation, mild. a. Aortic root 4.3 cm by echo, 4.7 cm b y MRI 2008. 5. Peripheral neuropathy. a. Abnormal nerve conduction studies 12 05 (Dr. Link Chaidez); patient has minimal symptoms. b. Autonomic testing at [facility] 04/2010 demonstrated a minimal heart rate response to deep breathing (prior catheter ablation in the left atrium near parasympathetic ganglia), Valsalva ratio about 20%, low amplitude skin sympathetic responses in the hands and feet. 6. Chronic headaches, mild. 7. History of basal cell carcinoma. 8. Status post septoplasty, tonsillectom y. 9. Adverse Drug Reactions/Allergies: ami odarone, atenolol, metoprolol (mental fogginess, diarrhea), diltiazem, verapamil, flecainide (psychosis), dofetilide (irritability), fresh fruit (hives). Subjective: Mr. Garcia is a 57-year-old m an seen at the request of Dr. Manny Moore for an opinion about his syncope and near-syncope. This is his major medical problem at present. He went to ground 07/2012 and 08/2012, within a couple of minutes after working vigorously at his long term job, and then standing in one spot. The first episode caused a cut to his head as he hit a desk on the way down, though he did not have complete syncope. The second episode he had complete synco pe, which he felt was quite brief. More frequently, he has ? lightheadedness? by which he means mental fogginess (he can hear words, but with diminished comprehension), weakness, and sometimes near-syncope. These symptoms are worse with stress at work (he admits he is a perfectionist with regard to cleanliness), and always occur in the standing position. His symptoms improve in the sitting position. He will get these symptoms if he quickly exerts himself, such as running up stairs or doing vigorous shov eling. If he slows down, the symptoms regress. He has no angina or heart failure sympto ms. Since his last ablation, he has had minimal palpitations, perhaps 15-20 seconds at most in duration, and can go at least a week without any. His review of systems had been positive for reduced energy, but with time off of work his energy seems fine. He is jogging 90 minutes every morning, 5-6 miles on quite hilly terrain. He is planning to go back to work next week. The rest of his systems review is noncontributory except for the problems in the problem list. His father at age 72 from [place]. His mother is alive at age 79. He has two healthy siblings (brothers). He does not smoke, and has one alcoholic drink per week. He does not use recreational drugs. He is , with two daughters ages 2 9 and 31. 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 Medications: aspirin 81 mg daily Objective: Blood pressure 158/103 in the right arm and 155/107 in the left arm, with a pulse of 78 There are no carotid bruits. Bilateral c arotid sinus massage is unremarkable for a cardiodepressor or vasodepressor response. His cardiopulmonary examination is unrem arkable. There is no peripheral edema. The patient was tilted to 80 degrees. In itially, his blood pressure was 177/103 with a pulse of 75. Ten minutes later, his blood pressure was 164/125 with a pulse of 84. Isuprel 1 mcg/minute IV was infused. Ten minutes later, after 20 minutes of tilt total, his blood pressure was 135/94 with a pulse of 101. Isuprel was increased to 3 mcg/minute IV . Ten minutes later, after 30 minutes of tilt total, his blood pressure was 124/80 with a pulse of 112. Isuprel was increased to 5 mcg/minute IV . Ten minutes later, after 40 minutes of tilt total, his blood pressure was 111/60 with a pulse of 106. A couple of minutes before the end of the test, he felt like we reproduced his real-life symptoms in that he could hear us but had diminished comprehension, and felt like he needed to sit down. He had some nausea which he does not get in real life, but in general felt these symptoms mimicked his real-life symptoms quite cl osely. At this time, his blood pressure was 107/66 with a pulse of 112. Assessment: 1. Syncope/near-syncope, always in the u pright position, worse with stress, probably autonomically mediated. His symptoms were reproduced (though he was not syncopal) on tilt testing today, with a blood pressure of 107/66 and pulse of 112 (a mild drop on Isuprel from earlier in the tilt test). This aggressive tilt protocol did not provoke a true Bezold-Jarisch reflex response. His blood pressure was elevated during the test, presumably due to anxiety as he isaac s no history of hypertension that I am aware of. 2. Mild cardiomyopathy. 3. Mild aortic dilatation. 4. Peripheral neuropathy and abnormal au tonomic testing (confounded by his post ablation status, at least the heart rate response to deep breathing). 5. PAF with multiple medication intolera nces and lifestyle impairment, now doing well after his fourth left atrial ablation procedure in 09/2012. Plan: I informed the patient and his wif e that his symptoms seem to be annoying, rather than dangerous, and that it was somewhat reassuring that an aggressive tilt protocol did not provoke Bezold-Jarisch reflex activation. I encouraged him to keep well hydrated, not go all day without eating, and pay attention to warning symptoms. Ideally he should lie down with his feet elevated if he feels like he may faint, but at the least he should sit down and do isometric maneuvers simu ltaneously in his arms and legs, for which I gave him instruction. We also talked about support hose and ab dominal binders, which may not be necessary at this point. We are both reluctant to consider medication like Florinef or midodrine, given his past history of multiple medication intolerances. I feel he is ready to return to work, an d that his risk of injury on the job is low, especially if he pays attention to his cues and paces himself from an exertional standpoint. Further follow up with me will be on an as-needed basis. Of the 60-minute office visit, 35 minute s were spent counseling Mr. Garcia and his on the above issues. [place]esh [place] [address] - tel [phone] - fax [facility] Copy: MD Danish López MD Michael Hayes, MD William B Ellis Manny Moore MD CARDIAC SERVICES ORDERABLES documented in this encounter Visit Diagnoses Diagnosis Syncope Syncope and collapse documented in this encounter Administered Medications Inactive Administered Medications - up to 3 most recent administrations Medication Order MAR Action Action Date Dose Rate Site isoproterenol (ISUPREL) 1 Rate/Dose Change 07/23/2013 8:24 AM 5 mcg /min 75 mL/hr mg in sodium chloride 0.9% EST 250 mL infusion (EP lab) 1-20 mcg/min (rounded to 15-300 mL/hr), Intravenous, CONTINUOUS PRN, Starting on Mon07/23/13 at 0750, Until Mon07/23/13 at 0835, EP Study/Ablation, EP (Intra-Procedure) Rate/Dose Change 07/23/2013 8:14 AM EST 3 mcg/min 45 mL/hr New Bag 07/23/2013 8:04 AM EST 1 mcg/min 15 mL/hr sodium chloride 0.9 % flush 5 mL Given 07/23/2013 7:54 AM EST 5 mLs 5 mL, Intravenous, EVERY 12 HOURS, First dose on Mon07/23/13 at 0815, Until Discontinued, Routine sodium chloride 0.9% infusion New Bag 07/23/2013 7:54 AM EST 50 mL/hr 50 mL/hr 50 mL/hr, Intravenous, CONTINUOUS, Starting on Mon07/23/13 at 0815, Until Mon07/23/13 at 0835 documented in this encounter Care Teams Director Mission Relationship Specialty Start Date End Date Danish Cao DO PCP - General 06/15/10 02/23/[address] [place] [address] documented as of this encounter
--- OUTSIDE RECORDS SUMMARY | 2022-02-07 01:37 | XMS_ITS | Encounter Summary ---
:1955 Author Organization [facility] [place] [address] Care Team Providers Name Role Phone Renee Corcoran APRN Primary Care Provider Reason for Visit Reason Onset Date Comments Follow-up 05/01/2017 Encounter Details Date Type Department Care Team Description 05/01/2017 Telephone Neurology at [place] Deanna Morales MD Follow-up [facility] [place] [address] NEUROLOGY DEPT [phone] [place], [place] [address] (Wo rk) Social History Tobacco [...] Telephone Encounter - Nicole Black RN - 05/01/2017 1:54 PM EDT Patient called and left a message on the triage line stating he would like to check in. Called patient back and he states it has been about three weeks since Botox injections Took hydroxyzine this am and planned to take another dose at noontime but fell asleep until my call He states he has been having occasional overwhelming pain in the front of his head / temples He is feeling a pulsing on the top of his head and states his whole head itches randomly. He denies rash or pain on his skin. He understands the Botox likely isn't at full effect yet and wanted to discuss his thoughts. He will take hydroxyzine TID for a few days to see if he can get on top of the headaches. He is traveling down to see his daughter on (Joyce?) and will call with an update when he returns from his trip. documented in this encounter Plan of Treatment Upcoming Encounters Date Type Specialty Care Team Description 02/14/2022 Office Visit Dermatology Ace Hardwick MD [facility] DR JENNIFER CASTELLANO-DERMAT [facility]LOGY [place] [phone] (Wo rk) 03/08/2022 Appointment Radiology Oscar De Oliveira MD [facility] NEUROSURGERY [place], [place] [address] (Wo rk) 03/08/2022 Office Visit Neurosurgery Oscar De Oliveira MD [facility] NEUROSURGERY [place], [place] [address] (Wo rk) 06/23/2022 Office Visit Neurology Annetta Hernandez APRN [facility] DR[facility] Neurology [place], [place] [address] (Wo rk) documented as of this encounter Visit Diagnoses Not on filedocumented in this encounter Care Teams Bi Report Developer Relationship Specialty Start Date End Date Renee Corcoran, CHIEF LIBRARIAN [employer] DEPARTMENT PCP - General Family Medicine 02/24/16 04/10/18 documented as of this encounter
--- OUTSIDE RECORDS SUMMARY | 2022-02-07 01:37 | XMS_ITS | Encounter Summary ---
:1955 Author Organization [facility] [place] [address] Care Team Providers Name Role Phone Renee Corcoran APRN Primary Care Provider Reason for Visit Reason Onset Date Comments Follow-up 02/14/2017 Encounter Details Date Type Department Care Team Description 02/14/2017 Telephone Neurology at [facility] Deanna Morales MD Follow-up [place] [address] NEUROLOGY DEPT [phone] [place], [place] [address] (Wo rk) Social History Tobacco [...] Telephone Encounter - Nicole Black RN - 02/14/2017 8:28 AM EDT Patient called and left a message on the triage line stating his ONB on of last week began working the day following the procedure. He states his headache was completely resolved. Today 02/13 he has a headache again but it is nowhere nearly as bad as it was last week or the week prior. He willcall back in another week with an update. documented in this encounter Plan of Treatment Upcoming Encounters Date Type Specialty Care Team Description 02/14/2022 Office Visit Dermatology Ace Hardwick MD [facility] [address] [place], [place] [address] (Wo rk) 03/08/2022 Appointment Radiology Oscar De Oliveira MD [facility] NEUROSURGERY [place], [place] [address] (Wo rk) 03/08/2022 Office Visit Neurosurgery Oscar De Oliveira MD [facility] NEUROSURGERY [place], [place] [address] (Wo rk) 06/23/2022 Office Visit Neurology Annetta Hernandez APRN [facility] Neurology [place], [place] [address] (Wo rk) documented as of this encounter Visit Diagnoses Not on filedocumented in this encounter Care Teams General Maintenance Engineer Relationship Specialty Start Date End Date Renee Corcoran APRN PCP - General Family Medicine 02/24/16 04/10/18 documented as of this encounter
--- OUTSIDE RECORDS SUMMARY | 2022-02-07 01:37 | XMS_ITS | Encounter Summary ---
:1955 Author Organization [facility] [place] [address] Care Team Providers Name Role Phone RusscherylRenee APRN Primary Care Provider Reason for Visit Reason Onset Date Comments Medication Problem 10/31/2016 Encounter Details Date Type Department Care Team Description 10/31/2016 Telephone Neurology at [facility] Deanna Morales MD Medication Problem [facility] [place] [address] NEUROLOGY DEPT [phone] [place], [place] [address] (Wo rk) Social History Tobacco [...] Encounter - Nicole Black RN - 10/31/2016 4:27 PM EDT Called patient and informed him of Dr. Morales's recommendation as noted. Patient understands instructions and agrees with this plan. I let him know that he will have to get his creatinine drawn before his MRI & LP - he will get here at least one hour early to have them drawn We discussed that he should keep a headache calendar, paying attention to how many headache days he is having and how bad they are from a 1-10 scale. I also let him know that two CTs are okay for him and he will not be exposed to too much radiation. Telephone Encounter - Deanna Morales MD - 10/31/2016 4:17 PM EDT Recommend discontinuing Hydroxyzine Can try Baclofen 10-20mg TID PRN Disp # 45 Refills 3 Deanna Morales MD [facility] Neurology Telephone Encounter - Nicole Black RN - 10/31/2016 8:51 AM EDT Patient called and states he started taking hydroxyzine 25 mg at bedtime on . Ever since then, he has been very drowsy during the day and has not done anything other than lay around. He says his headache has not been helped at all by the medication. He wonders if Dr. Morales can change him to something else and just send in a two week supply so he doesn't waste more medication if he doesn't tolerate it well. documented in this encounter Plan of Treatment Upcoming Encounters Date Type Specialty Care Team Description 02/14/2022 Office Visit Dermatology Ace Hardwick MD [facility] DR JENNIFER CASTELLANO-DERMAT OLOGY [place], [place] [address] (Wo rk) 03/08/2022 Appointment Radiology Oscar De Oliveira MD [facility] DR [place], [place] [address] (Wo rk) 03/08/2022 Office Visit Neurosurgery Oscar De Oliveira MD [facility] DR NEUROSURGERY [place], [place] [address] (Wo rk) 06/23/2022 Office Visit Neurology Annetta Hernandez APRN [facility] DR[address] Neurology [place], [place] [address] (Wo rk) documented as of this encounter Results Creatinine (11/10/2016 10:59 AM EDT) athologist Signature Creatinine 1.02 0.80 - 1.50 [facility] mg/dL [facility] Comment: Please note that the pediatric reference intervals supplied above were not validated at [facility]. Results from pediatri c patients should be interpreted in conjunction to the patient's age, height and muscle mass. Estimated GFR >60 >=60 [facility] Comment: This estimated GFR (eGFR) value [...] the following links into your internet browser. [email or web address] [email or web address] [email or web address] [email or web address] Specimen Anatomical Collection Method Collection Time Receive d Time (Source) Location / / Volume Laterality Blood specimen 11/10/2016 10:59 7 (specimen) AM EDT 11:02 AM EDT Resulting Agency Comment Spec In Lab Deanna Morales MD CHEMISTRY ORDERABLES Performing Organization Address City/State/[place] [address] documented in this encounter Visit Diagnoses Diagnosis Headache, unspecified headache type documented in this encounter Care Teams Dobie Worker Relationship Specialty Start Date End Date Renee Corcoran APRN PCP - General Family Medicine 02/24/16 04/10/18 documented as of this encounter
--- OUTSIDE RECORDS SUMMARY | 2022-02-07 01:37 | XMS_ITS | Encounter Summary ---
:1955 [place] [address] Care Team Providers Name Role Phone Renee Corcoran Candi PHILLIPS Primary Care Provider Reason for Visit Reason Comments Skin Check Encounter Details Date Type Department Care Team Description 02/24/2016 Office Visit Dermatology at [facility] India Conrad MD [place] (actinic keratosis); [facility] [place] [address] [place] [address] [facility] [phone] RD-DERMATOLOGY [place], [place] [address] Social History Tobacco Use Types Packs/Day Years Used Date Former Smoker Alcohol Use Standard Drinks/Week Comments Yes 2 (1 standard drink = 0.6 oz pure alcoho l) Sex Assigned at Date Recorded Not on file documented as of this encounter Progress Notes Nori Conrad MD - 02/24/2016 8:45 AM EDT DERMATOLOGY - ESTABLISHED PATIENT NOTE Date of service: 02/24/2016 Braulio Garcia : 1955 CC: skin cancer exam Skin History: BCC on left lower leg, right scapula, right clavicular area. Actinic keratosis Diffuse actinic damage treated with Carac, responded well ?? HPI: Braulio Garcia is a 60 y.o. established patient, last seen by myself on 10/29/14. 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 Actinic keratosis ??? Basal cell carcinoma Medications: ascorbic acid (vitamin C) and aspirin Allergies Allergen Reactions ??? Food Extracts Hives Fresh Fruit patient reported Review of Systems: - General: Feels well. - Skin: No other skin concerns. SH: still running early mornings. 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 - Skin exam: Patient was asked to disrobe to the level of their comfort. A total body skin exam except for the genitalia was performed. This includes examination of the skin of the face, ears, neck, chest, axillae, left and right upper and lower extremities, hands, feet, abdomen, back, and buttocks. The genitalia, perineum, and perianal areas were not examined. Notable findings/Assessment/Plan: 1. Nevus: 3-4 mm evenly pigmented brown macule on left second toe 2 Actinic keratosis:0.2-0.3cm scaly irregular pink papule,right baptist,right forehead,right ear Procedure Note: Procedure: Destruction of lesion(s) with cryotherapy. Number: 3 Location: as above Discussed procedure and expectations including risks (including risk of hypopigmentation) and benefits. Verbal consent obtained. Frozen with LN2, 15-30 second thaw time, TWICE. There were no complications; the patient tolerated the procedure well. Post-procedure expectations and wound care were reviewed. Discussed, encouraged sun protective measures. RTC: 1 year or PRN Note initiated by Kiley Waters LPN. I am documenting this encounter acting as the scribe for and in the presence of Nori Conrad I performed the above scribed service and agree with the accuracy of the documentation in this encounter. Reviewed and signed by: Nori Conrad MD Dermatology [facility] documented in this encounter Plan of Treatment Upcoming Encounters Date Type Specialty Care Team Description 02/14/2022 Office Visit Dermatology Ace Hardwick MD [facility] ER DR JENNIFER CASTELLANO-DERMAT OLOGY [place], [place] [address] (Wo rk) 03/08/2022 Appointment Radiology Oscar De Oliveira MD [facility] ER NEUROSURGERY [place], [place] [address] (Wo rk) 03/08/2022 Office Visit Neurosurgery Oscar De Oliveira MD [facility] ER NEUROSURGERY [place], [place] [address] (Wo rk) 06/23/2022 Office Visit Neurology Annetta Hernandez APRN [facility] [address] Neurology [place], [place] [address] (Wo rk) documented as of this encounter Visit Diagnoses Diagnosis AK (actinic keratosis) Actinic keratosis Nevus Benign neoplasm of skin, site unspecifie d documented in this encounter Care Teams Admission Specialist Relationship Specialty Start Date End Date Renee Corcoran, LITHOGRAPHIC ETCHER PCP - General Family Medicine 02/24/16 04/10/18 documented as of this encounter
--- OUTSIDE RECORDS SUMMARY | 2022-02-07 01:37 | XMS_ITS | Encounter Summary ---
:1955 Author Organization [place] [address] Care Team Providers Name Role Phone Jewell Renee Christopher APRN Primary Care Provider Reason for Visit Reason Comments Procedure EEG awake Encounter Details Date Type Department Care Team Description 11/10/2016 Hospital Encounter Neurodiagnostic at [facility] NDPH ([facility] D rive persistent headache) [place] [address] Social History Tobacco Use Types Packs/Day [...] 02/11/2020 daily. documented as of this encounter Procedure Notes Leslee Yarbrough MD - 11/10/2016 3:19 PM EDTAssociated Order(s): EEG AWAKE, ASLEEP, DROWSY Procedure(s): EEG INNC. RECORDING AWAKE AND ASLEEP, W. HYPERVENT/PHOTIC STIMU PRFM Pre-Procedure Diagnose(s): NDPH (new daily persistent headache) [facility] Department of Neurology Out Patient EEG Report Name of the Patient: Braulio Garcia Date of : 1955 Date of Service: 11/10/2016 Referring physician: Cyndi Morales MD BRIEF HISTORY: Braulio Garcia is a 60 y.o. year old patient with persistent headache. MEDICATIONS: Current Outpatient Prescriptions Medication Sig Dispense Refill ??? levETIRAcetam (KEPPRA) [...] tablet No current facility-administered medications for this encounter. METHODS: A 21 channel digitized electroencephalogram was performed in the [facility] Clinical Neurophysiology Laboratory. The 10/20 international system of electrode placement was used and bipolar and referential electrode montages were recorded. In addition to EEG the patient was monitored for EKG and lateral/vertical eye movements. Video was recorded during the session. The duration of the recording was 30 minutes. LABORATORY MECHANIC HELPER'S REPORT: Performed by: DT Patient was sleep deprived. Sleep was not attained. Photic stimulation was performed. Hyperventilation was not performed. Effort was was not adequate. Movement and other artifact was not significant. Comments:none ELECTROENCEPHALOGRAPHER'S REPORT: Background The background is symmetric, exhibiting a moderate amplitude 9-10 Hz posterior dominant rhythm with lower-amplitude beta frequencies anteriorly. With eye opening the background activity changed to a low voltage mixture of alpha, beta, and occasional theta range frequencies. Sleep No electrographic evidence of stage II sleep was seen. Hyperventilation Hyperventilation was not performed. Photic Stimulation Photic stimulation using a step-escobedo increase in photic frequency varying from 1-21Hz was performed with bilateral driving responses without the appearance of abnormal activity. Abnormal EEG Activity None EKG The precordial tracing revealed a regular rhythm with physiologic variation PRIOR EEG: No previous EEG reports were readily available. INTERPRETATION: This EEG is normal during the awake state as well as during the activation procedures of hyperventilation and photic stimulation. CLINICAL CORRELATION: This awake only routine EEG is normal. Leslee Yarbrough MD Epilepsy Fellow #[id number] 11/11/2016 10:20 AM. Associated attestation - Satish Peng Jr., MD - 11/11/2016 5:04 PM EDT I have reviewed the EEG with the fellow and agree with the assessment above. Satish Peng MD, PhD Department of Neurology Personal Pager #[phone] 11/11/2016 5:04 PM documented in this encounter Plan of Treatment Upcoming Encounters Date Type Specialty Care Team Description 02/14/2022 Office Visit Dermatology Ace Hardwick MD [facility]ENN[facility]ER CASTELLANO-DERMAT OLOGY [place], [place] [address] (Wo rk) 03/08/2022 Appointment Radiology Oscar De Oliveira MD [facility] ER NEUROSURGERY [place], [place] [address] (Wo rk) 03/08/2022 Office Visit Neurosurgery Oscar De Oliveira MD [facility] ER NEUROSURGERY [place], [place] [address] (Wo rk) 06/23/2022 Office Visit Neurology Annetta Hernandez APRN [facility] Neurology [place], [place] [address] (Wo rk) documented as of this encounter Procedures Procedure Name Priority Date/Time Associated Diagnosis Comme nts EEG INNC. RECORDING Routine 11/11/2016 5:04 PM NDPH (new daily Results for this AWAKE AND ASLEEP, EDT persistent headache) pr ocedure are in W. HYPERVENT/PHOTIC the resu lts STIMU PRFM section. documented in this encounter Results EEG INNC. RECORDING AWAKE AND ASLEEP, W. HYPERVENT/PHOTIC STIMU PRFM (11/11/2016 5:04 PM EDT) Narrative Satish Peng Jr., MD - 11/11/2016 5: 04 PM EDT Leslee Yarbrough MD ? 11/11/2016 10:21 AM [facility] Department of Neurology Out Patient EEG Report [...] digitized electroencephalog emeka was performed in the [facility] Clinical Neurophysiology Laboratory. The 10/20 international system of electrode placement was used and bipolar and referential electrode montag es were recorded. ??In addition to EEG the patient was monitore d for EKG and lateral/vertical eye movements. Video wa s recorded during the session. The duration of the recording w as 30 minutes. LABORATORY MECHANIC HELPER'S REPORT: Performed by: DT Patient was sleep [...] ? ? Leslee Yarbrough MD Epilepsy Fellow #[id number] 11/11/2016 10:20 AM. Deanna Morales MD NEUROLOGY ORDERABLES documented in this encounter Visit Diagnoses Diagnosis NDPH (new daily persistent headache) New daily persistent headache documented in this encounter Care Teams Clubhouse Manager Relationship Specialty Start Date End Date Renee Corcoran APRN PCP - General Family Medicine 02/24/16 documented as of this encounter
[2022-02-07 13:03] LABS: Anion Gap 8.4 mmol/L (3-11); BUN 25 mg/dL (7-18); CO2 27.6 mmol/L (21.0-32.0); CREATININE 1.1 mg/dL (0.70-1.30); Calcium 9.9 mg/dL (8.5-10.1); Chloride 100 mmol/L (98-107); Glucose 90 mg/dL (74-106); Potassium 5.8 mmol/L (3.5-5.1); Sodium 136 mmol/L (136-145)
== END 2022-02-07 01:31 | disposition home or self-care (01) ==
LOC: LOS 01:30
PROVIDERS: PCP Nurse Practitioner Family; Visit Provider Nurse Practitioner Family
DX: I10 Essential (primary) hypertension (principal)
CPT/HCPCS: 36415; 80048

== ENCOUNTER 2022-10-05 10:04 | Emergency (ER) | payer MEDICARE, BC, SELFPAY ==
[2022-10-05 10:08] VITALS: BP 138/80; PULSE 76; TEMP 37.1; O2SAT 99
--- NOTE | 2022-10-05 10:15 | DI.RAD_ITS ---
Exam(s) XR SHOULDER LT COMPLETE 2+V EXAM: XR SHOULDER LT COMPLETE 2+V CLINICAL HISTORY: pain s/p fall. TECHNIQUE: 2D digital imaging was performed of the left shoulder. Three images were obtained. AP a nd Y views were obtained. COMPARISON: No exams were available for comparison FINDINGS: BONES: No acute fracture is present. No bony destructive lesion is seen. JOINTS: No dislocation present. Mild degenerative changes are seen at the AC joint. SOFT TISSUE: Normal. IMPRESSION: No acute abnormality. DATA REPOSITORY: RADIATION DOSE DELIVERED:
--- NOTE | 2022-10-05 10:37 | ED.GENADUL_ITS ---
Discharge Plan Disposition Patient Disposition: Home Condition: Stable Discharge Details Clinical Impression: Sprain of left shoulder joint Primary Care Provider: Tho Genao ED Provider: Manny Real Home Meds and New Rx's Prescriptions: Continued diltiazem HCl 30 mg tablet 30 mg PO BID Qty: 180 3RF lisinopril 10 mg tablet See Rx Instructions PO .COMPLEX MDD 30mg Qty: 270 3RF Dose Instruction: 20mg AM, 10mg PM PO 2 tabs AM, 1 tabs PM; ; Rx Instructions: 20mg AM, 10mg PM PO 2 tabs AM, 1 tabs PM; ; Xarelto 10 mg tablet See Rx Instructions PO DAILY Rx Instructions: 20mg PO daily; omega-3 fatty acids-fish oil 1 EACH capsule 1 ea PO DAILY medical marijuana Inhalation DAILY Patient Comments: 02-06-[address] Deanna Morales [place] [facility]. -hb ascorbic acid (vitamin C) [Vitamin C] 500 MG tablet 500 mg PO DAILY Centrum Complete 1 EACH tablet 1 tab PO DAILY Discharge Instructions Instructions: Shoulder Sprain (ED) Additional Instructions: your xray did not show any broken or dislocated bones use the sling as needed for comfort if you still have pain next week see your primary care provider return to the emergency department for severe worsening pain or new pain such as chest pain or abdominal pain Medical Decision Making 66 yo male with hx of htn, bph, who comes in with left shoulder pain. He states yesterday he slipped walking out of his house on wet snow falling back and landing on his left shoulder. Denies hitting his head or loc. Denies any head pain, neck pain, chest, back or abdomen pain since the fall and only has left shoulder pain. States he felt well prior to the fall with no preceding symptoms such as lightheadedness or dyspnea. He arrives stable speaking clearly in no distress. He localizes the pain to the anterior left shoulder. HE has limited rom due to pain even on passive rom. He has no tenderness of mid/distal humerus, elbow, forearm, wrist or hand with intact distal sensation and pulses. No midline c spine pain with full rom, no signs of trauma to the head. Suspect contusion vs sprain vs fx/dislocation, will obtain xray to further evaluate xray negative, stable exam. Discussed with pt and advised will treat as a sprain with sling but that if pain is not improving next week needs to see his pcp and discuss having an mri to evaluate his rotator cuff. Return precautions given Differential Diagnosis Differential Diagnosis: sprain, strain, contusion, fracture Imaging Data Radiologic Study: Attestation: I personally reviewed and interpreted this imaging study as follows: Imaging: X-Ray Radiologist's impression: no acute findings HPI General Mode of arrival: ambulatory (with pd) . Date/Time Provider Initiated Documentation: 10/05/22 10:07 . Limitations to Documentation: no limitations . Information obtained by: patient . History of Present Illness 66 year old M presents to the emergency department with the chief complaint of left shoulder pain, described as moderate, Patient started experiencing this day(s) (1) and it has been constant. No relieving factors improve symptom(s), No exacerbating factors reported . Patient notes no other symptoms.. Patient did receive the following treatments prior to arrival, NSAID Related Data Home Medications Medication Instructions Recorded Confirmed ascorbic acid (vitamin C) 500 mg 500 mg PO DAILY 04/03/13 10/05/22 tablet (Vitamin C) multivitamin-ferrous 1 tab PO DAILY 04/03/13 10/05/22 fumarate-folic acid 18 mg-400 mcg tablet (Centrum Complete) omega-3 fatty acids-fish oil 300 1 ea PO DAILY 10/03/16 10/05/22 mg-1,000 mg capsule Medical Marijuana dose inhalation DAILY 02/06/18 01/31/22 diltiazem HCl 30 mg tablet 30 mg PO BID #180 tabs 03/28/18 10/05/22 lisinopril 10 mg tablet See Rx Instructions PO .COMPLEX 03/31/18 10/05/22 #270 tabs rivaroxaban 10 mg tablet (Xarelto) See Rx Instructions PO DAILY 01/14/20 10/05/22 Previous Rx's Medication Instructions Recorded diltiazem HCl 30 mg tablet 30 mg PO BID #180 tabs 03/28/18 lisinopril 10 mg tablet See Rx Instructions PO .COMPLEX 03/31/18 #270 tabs Allergies Allergy/AdvReac Type Severity Reaction Status Date / Time flecainide AdvReac Severe Visual Verified 10/05/22 10:14 Disturbances fresh fruit Allergy Severe Anaphylaxsi Uncoded 10/05/22 10:14 s General Stated Complaint: Orthopedic GANESH: 4 Review of Systems All systems reviewed & are unremarkable except as noted in HPI and below Constitutional Constitutional: Denies chills, Denies fever(s) and Denies weakness Eyes Eyes: Denies loss of vision Cardiovascular Cardiovascular: Denies chest pain and Denies dyspnea Respiratory Respiratory: Denies cough and Denies dyspnea Gastrointestinal Gastrointestinal: Denies abdominal pain, Denies nausea and Denies vomiting Genitourinary Genitourinary: Denies dysuria Neurologic Neurologic: Denies loss of vision and Denies weakness PFSH All Active Problems (Updated 10/05/22 @ 11:09 by Manny Real MD) Sprain of left shoulder joint (Acute) Essential hypertension (Acute) Ascending aortic aneurysm (Acute) BPH (benign prostatic hyperplasia) (Chronic) Actinic keratosis of scalp (Chronic) S/P ablation of atrial fibrillation (Acute 09/23/16) Cerebral cavernoma (Acute 09/22/16) Pre-syncope (Acute 09/23/16) Intractable headache (Acute 01/12/17) Dr. 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 Daughter No problems noted. 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 Pets and animals: Yes Pets and animals: cat(s) Sexually active: Yes Do you think of yourself as: straight/heterosexual Current gender identity: male What is your relationship status?: How often do you attend rastafarian or sikh services?: decline to answer Do you belong to any clubs or organized social groups?: decline to answer Panel score (0-1 are the most socially isolated patients): 1 What type of physical activity do you participate in: running Duration: > 90 minutes/day Frequency: daily Seatbelt use: always Drive intox or ride w/intox telephone directory distributor driver: No Do you feel safe in your relationship?: Yes Exam Const General: no acute distress Orientation: alert HENMT Head: normal to inspection Ears: external ears normal General nose exam: external nose normal Mouth: moist mucous membranes Eyes General: appearance normal, both eyes and all related structures Neck Neck: normal visual inspection, full ROM, trachea midline, nontender and no JVD Chest Chest: no tenderness Resp Effort & Inspection: normal respiratory effort and able to speak in complete sentences Cardio Rate: regular rate GI Palpation: soft and nontender Back/Spine/Pelvis Thoracic/Lumbar Spine: thoracic and lumbar spine normal to inspection, No thoracic spinal tenderness and No lumbar spinal tenderness Skin General skin exam: no rashes or lesions noted Neuro General: patient alert and patient oriented x3 Extrem General: normal to inspection Left upper extremity: normal to inspection Psych Mental Status: mental status grossly normal Course Vital Signs Vital signs: Vital Signs Temperature 37.1 C 10/05/22 10:08 Pulse 76 10/05/22 10:08 Blood Pressure 138/80 10/05/22 10:08 Pulse Oximetry 99 10/05/22 10:08 Temperature 37.1 C 10/05/22 10:08 Temperature Source Tympanic 10/05/22 10:08 Pulse 76 10/05/22 10:08 Respiratory Effort Normal 10/05/22 10:13 Blood Pressure 138/80 10/05/22 10:08 Blood Pressure Position Sitting 10/05/22 10:08 Pulse Oximetry 99 10/05/22 10:08 Oxygen Delivery Method Room Air 10/05/22 10:08 Oxygen Flow Rate 0 10/05/22 10:08 Pain Level 7 10/05/22 10:08
--- NOTE | 2022-10-05 17:31 | NUR.NOTE ---
Nursing Note: Accessed patient chart to print provider note to be faxed to [facility] for billing purposes.
== END 2022-10-05 11:20 | disposition home or self-care (01) ==
PROVIDERS: Emergency Provider Emergency Medicine; PCP Nurse Practitioner Family
DX: S43.492A Other sprain of left shoulder joint, initial encounter (principal); W00.0XXA Fall on same level due to ice and snow, initial encounter
CPT/HCPCS: 99283; 73030